=== PATIENT | male | born 1955 | race Caucasian/White ===

== ENCOUNTER 2019-06-27 20:30 | Inpatient (IN) | payer BC, SELFPAY ==
[2019-06-28] VITALS (26 sets, daily range): BP systolic 121–170; BP diastolic 67–87; PULSE 80–106; RESP 14–26; TEMP 37.4–38.9; O2SAT 90–100; BMI 44.9
--- NOTE | 2019-06-28 02:28 | PC.ADMIT ---
NO [id number] [facility] Admission Note: The patient,Satish Jones,64 y/o, was given written information regarding hospital policies, unit procedures and contact persons. Patient's smoking status: . Vital Signs - 8 hr 06/28/19 00:01 06/28/19 02:00 Temperature 99.3 F Pulse Rate [Bilateral Radial] 105 H 93 Respiratory Rate 18 18 Blood Pressure [Right Arm] 144/82 149/72 Pulse Oximetry 92 95 PT RCVD FROM ED VIA STRETCHER. PT A&OX3 . VSS PER CM. PT ARGUMENTIVE AND REFUSING TO STAY IN BED. PT NOTED TO HAVE PURULENT FOUL SMELLING DRAINAGE C OLD DRSGS ATTACHED TO WOUNDS. PT FAMILY REPORTED PT HAS HAD SAME DRSGS ON FOR SEVERAL MONTHS. PT HAS OPEN LESIONS TO BLE , SCROTUM, BUTTOCKS, AND GROIN AREA . PT REPORTS HE LIVES ALONE AND NO ONE HELPS HIM TAKE CARE OF HIMSELF. ABGS DRAWN AT THIS TIME. PT PLACED ON BIPAP PER RT. 0000 BATH CARE DONE AT THIS TIME. WOUNDS CLEANED C DAKINS PER MD ORDER, FLAGYL CREAM APPLIED . PT POSITIONED FOR COMFORT . LINENS CHANGED AT THIS TIME.
[2019-06-28] MEDS: sodium hypochlorite 0.25% Btl 473 mL 1 APPLIC TOPICAL ×2 (02:42→15:30)
[2019-06-28] MEDS: sodium chlor 0.9% + KCl 20 mEq 20 MEQ/1,000 ML BAG 30 MEQ IV (02:44)
[2019-06-28] MEDS: piperacillin-tazobactam 4.5 GM in sodium chloride 0.9% (plus) 50 ML IV ×2 (02:45→17:13)
[2019-06-28 03:40] LABS: ABG PCO2 58.2 mmHg (35-45); ABG PH Result 7.28 (7.35-7.45)
[2019-06-28 03:41] LABS: BIPAP 20/10; Base Excess ABG -0.6 mmol/L (-2.0-2.0); Blood Gas Allen Test POS; Blood Gas Operator Identificat CAK; HCO3 ABG 27.4 mmol/L (22-26); Oxygen Device BIPAP; PO2 ABG 94.5 mmHg (80.0-100.0)
[2019-06-28 03:42] LABS: Blood Gas Drawn By CAK; Blood Gas Sample Site LB; Blood Gas Sample Type ARTERIAL
--- NOTE | 2019-06-28 04:10 | PC.NURSE ---
ABGS REVIEWED C DR. GUERRERO PER ARIADNE RT. ORDER TO INTUBATE . DR. ARMENTA AT BEDSIDE AT 0415 .INDUCTION C 200 SUCCINCHOLYNE AND 20 ETOMIDATE . PT INTUBATED X 1 ATTEMPT SIZE 8 SECURED 25 AT LIP. OG PLACED AND VERIFIED PER AUSCULTATION AND XRAY. VSS PER CM. DIPRIVAN GTT STARTED AT 10 MCG/KG/MIN AT THIS TIME. SAMANTHA RIVERA.
--- NOTE | 2019-06-28 04:17 | XR_ITS ---
WS: [id number] CHEST XRAY TECHNIQUE: Portable chest. CLINICAL INFORMATION: post intubation COMPARISON: June 17, 2019 FINDINGS: Endotracheal tube with tip 6 cm above the nita. Enteric tube with tip below the diaphragm. Heart: Cardiomegaly. Mild pulmonary vascular congestion. Lungs: Bibasilar atelectasis. No focal pneumonia. Bones: Normal visualized bony structures. XR/XR chest 1V portable [id number] IMPRESSION: 1. Endotracheal tube with tip 6 cm above the nita. Enteric tube with tip bel ow the diaphragm. 2. Cardiomegaly with mild pulmonary vascular congestion. 3. Bibasilar atelectasis.
[2019-06-28] MEDS: propofol 1,000 MG/100 ML INJ 33.1 MG IV (05:04)
[2019-06-28] MEDS: succinylcholine 20 mg/mL SDV 10mL 200 MG (05:06)
[2019-06-28 05:15] LABS: Add RBC Morph No
[2019-06-28 05:20] LABS: Basophils % 0.2 %; Eosinophils % 0.1 %; Hematocrit 43.3 % (42.0-52.0); Hemoglobin 14.3 g/dL (11.7-16.6); Lymphocytes # 0.8 10^3/uL (0.8-4.8); Lymphocytes % 6.1 %; Mean Corpuscular Hemoglobin 30.6 pg (28.0-34.0); Mean Corpuscular Volume 92.7 fL (80-94); Mean Platelet Volume 8.1 fL (7.4-10.4); Monocytes # 1.4 10^3/uL (0.2-0.9); Monocytes % 10.5 %; Neutrophils # 10.6 10^3/uL (1.8-7.7); Neutrophils % 82.7 %; Nucleated Red Blood Cells % 0 %; Platelet Count 265 10^3/cmm (130-400); Red Blood Count 4.67 10^6/uL (4.1-5.3); Red Cell Distribution Width 14.1 % (12.1-15.1); White Blood Count 12.9 10^3/uL (4.0-10.0)
[2019-06-28 05:48] LABS: ABG PCO2 55.3 mmHg (35-45); ABG PH Result 7.27 (7.35-7.45); Arterial Blood Gas Hematocrit 42.7 % (42-52); Base Excess ABG -2.5 mmol/L (-2.0-2.0); Blood Gas Allen Test Pos; Blood Gas Sample Site Brachial, left; Blood Gas Sample Type Arterial; Blood Gas Tidal Volume 0.55; HCO3 ABG 25.3 mmol/L (22-26); PO2 ABG 89.7 mmHg (80.0-100.0)
[2019-06-28 05:50] LABS: Blood Gas Drawn By CAK; Oxygen Device VENT
[2019-06-28] MEDS: propofol 1,000 MG/100 ML INJ 49.6 MG IV ×3 (05:51→10:02)
[2019-06-28 05:55] LABS: Alanine Aminotransferase 17 U/L (0-41); Albumin Level 4.2 g/dL (3.5-5.2); Alkaline Phosphatase 114 IU/L (40-130); Anion Gap 21.4 (5-19); Aspartate Amino Transferase 30 U/L (0-40); Blood Urea Nitrogen 10 mg/dL (8-23); Calcium 8.7 mg/Dl (8.8-10.2); Carbon Dioxide 21 mmol/L (22-29); Chloride 95 mmol/L (98-107); Globulin 3.1 g/dL (1.3-4.6); Glomerular Filtration Rate 136.5 mL/min (90-130); Glucose 144 mg/dL (74-106); Potassium 3.4 mmol/L (3.5-5.1); Sodium 134 mmol/L (136-145); Total Bilirubin 0.9 mg/dL (0.15-1.2); Total Protein 7.3 g/dL (6.6-8.7)
[2019-06-28 06:45] LABS: Alanine Aminotransferase 16 U/L (0-41); Albumin Level 3.8 g/dL (3.5-5.2); Alkaline Phosphatase 102 IU/L (40-130); Anion Gap 20.5 (5-19); Aspartate Amino Transferase 27 U/L (0-40); Blood Urea Nitrogen 11 mg/dL (8-23); Calcium 8.4 mg/Dl (8.8-10.2); Carbon Dioxide 22 mmol/L (22-29); Chloride 97 mmol/L (98-107); Globulin 2.8 g/dL (1.3-4.6); Glomerular Filtration Rate 114.3 mL/min (90-130); Glucose 140 mg/dL (74-106); Potassium 3.5 mmol/L (3.5-5.1); Sodium 136 mmol/L (136-145); Total Bilirubin 0.9 mg/dL (0.15-1.2); Total Protein 6.6 g/dL (6.6-8.7)
[2019-06-28 07:11] LABS: Amphetamines Screen Urine Negative (Negative); Barbiturates Screen Urine Negative (Negative); Benzodiazepines Screen Urine Negative (Negative); Cocaine Screen Urine Negative (Negative); Opiate Screen Urine Negative (Negative); PCP Screen Urine Negative (Negative); THC Screen Urine Negative (Negative)
[2019-06-28 07:49] LABS: ABG PCO2 50.3 mmHg (35-45); ABG PH Result 7.33 (7.35-7.45); Base Excess ABG -0.4 mmol/L (-2.0-2.0); Blood Gas Allen Test Pos; Blood Gas Sample Site Brachial, left; Blood Gas Sample Type Arterial; Blood Gas Tidal Volume 0.6; HCO3 ABG 26.2 mmol/L (22-26)
[2019-06-28] MEDS: FUROsemide 10 mg/mL SDV 4mL 40 MG IVP ×2 (10:04→21:40)
[2019-06-28] MEDS: folic acid 1 mg Tablet PO (10:08)
[2019-06-28] MEDS: multivitamin therapeutic Tablet 1 TAB PO (10:08)
[2019-06-28] MEDS: thiamine 100 mg Tablet PO (10:09)
[2019-06-28 11:48] LABS: Magnesium 2.2 mg/dL (1.7-2.3)
[2019-06-28] MEDS: propofol 1,000 MG/100 ML INJ 52.2 MG IV ×6 (12:27→23:50)
[2019-06-28 12:48] LABS: Oxygen Device VENT
[2019-06-28 12:49] LABS: Blood Gas Drawn By CK
--- NOTE | 2019-06-28 12:57 | PC.PT ---
Hold PT eval today.
--- NOTE | 2019-06-28 14:13 | PC.CHAP ---
Pastoral Care Encounter/Spiritual Assessment Type of Contact [x] Declined mitochondrial disorders counselor visit [] Patient/Family/Request visit [] Outpatient visit [] Follow-up visit [] Physician referral [] Code/Alert [] Routine visit [] Staff referral [] Actively dying [] Patient sleeping [] Family support [] [] Out of room [] Palliative care [] [] Receiving care in room [] Pre-surgical visit [] Trauma [] Long length of stay [] ICU visit [] Other: Relational/Emotional Strength [] Patient feels connected with others/family/visitors/staff [] Distress [] Loneliness/isolation [] Abandonment Spirituality of Patient [] Person of Maryan [] Attends Sikhism of their Maryan [] Believes in Prayer [] Reads Bible or Congregation materials [] There are Spiritual issues to be addressed Glass Mould Cleaner Interventions [] Prayer [] Active listening [] Non-anxious presence [] Spiritual/emotional support [] Crisis/trauma care [] Spiritual counseling [] Bereavement support [] Provided bereavement packet [] Provided Bible/devotional materials [] Provided toy/stuffed animal, coloring book to patient or family member [] Completed spiritual assessment [] Provided Communion [] Anointing/[place] [] Salvation [] Other: Impact on Illness or Injury [] Angry [] Fearful [] Anxious [] Often cries [] Exhaustion [] Unable to work [] Unable to attend sabianist [] Unable to walk/stand [] Unable to read [] Unable to drive [] Unable to eat/drink [] Unable to sleep [] Unable to be with family [] Other: Summary Declinded Time spent with patient 2 mins
[2019-06-28] MEDS: ipratropium-albuterol 3 mL Neb INHALATION ×3 (17:05→23:54)
[2019-06-28 17:15] LABS: Bilirubin Urine Neg (Negative); Blood Urine 2+ (Negative); Glucose Urine UA Norm (Normal); Ketones Urine 1+ (Negative); Leukocyte Esterase Urine 2+ (Negative); Nitrate Urine Negative (Negative); Protein Urine Trace (Negative); Urine Appearance SL Hazy (CLEAR); Urine Color Amber (Yellow); Urobilinogen Urine 4 mg/dL (Negative)
[2019-06-28 17:33] LABS: Add Urine Culture? Yes; Bacteria Urine 2+; Mucus Urine TRACE; RBC Urine 25-40 /hpf (0-2); WBC Urine 40-55 /hpf (0-5)
--- NOTE | 2019-06-28 17:42 | CTR_ITS ---
PROCEDURE INFORMATION: Exam: CT Abdomen And Pelvis Without Contrast Exam date and time: 06/28/2019 7:14 PM Age: 64 years old Clinical indication: Patient HX: Hematuria, PT intubated, HX prostate CA; Additional info: Unknown TECHNIQUE: Imaging protocol: Computed tomography of the abdomen and pelvis without contrast. Total DLP: 2253.21 mGy-cm Radiation optimization: All CT scans at this facility use at least one of these dose optimization techniques: automated exposure control; mA and/or kV adjustment per patient size (includes targeted exams where dose is matched to clinical indication); or iterative reconstruction. COMPARISON: No relevant prior studies available. FINDINGS: Limitations: Study is limited by the absence of contrast. Artifact related to patient's arm position limits evaluation. Limited by patient's body habitus. Tubes, catheters and devices: Oral gastric tube tip and sidehole are within the stomach. A balloon bladder catheter is present. Lungs: Bilateral lower lobe consolidation. Heart: Mild cardiac enlargement. Liver: Enlarged low attenuating liver, evidence of hepatic steatosis. Gallbladder and bile ducts: Gallbladder distention. Pancreas: Normal. No ductal dilation. Spleen: Normal. No splenomegaly. Adrenals: Normal. No mass. Kidneys and ureters: Indeterminate density 3.6 cm right renal hypodense lesion, could be a complicated or complex cyst, recommend followup or comparison to priors. Stomach and bowel: Unremarkable. No obstruction. No mucosal thickening. Appendix: No evidence of appendicitis. Intraperitoneal space: Unremarkable. No free air. No significant fluid collection. Vasculature: Unremarkable. No abdominal aortic aneurysm. Lymph nodes: Nonspecific inguinal, and pelvic sidewall adenopathy. Sidewall lymph nodes measure up to 2 cm short axis. Bladder: Unremarkable as visualized. Reproductive: Unremarkable as visualized. Bones/joints: Moderate lumbar spondylosis. Soft tissues: Excessive intra-abdominal fat. CT/CT kidney stone [id number] IMPRESSION: 1. Bilateral lower lobe consolidation. 2. Indeterminate density 3.6 cm right renal hypodense lesion, could be a complicated or complex cyst, recommend followup or comparison to priors. 3. Nonspecific inguinal, and pelvic sidewall adenopathy. Sidewall lymph nodes measure up to 2 cm short axis. 4. Gallbladder distention. Radiation Dose CTDIVOL = (mGy): DLP = 2253.21 (mGy-cm)
--- NOTE | 2019-06-28 17:43 | P.PN_ITS ---
Subjective Subjective: Interval history: Satish is sedated and on the ventilator. History and physical reviewed. Medications: Reviewed: Yes Vitals/I&O/Wt Last Vital Signs Temp 101.1 F H 06/28/19 16:00 Pulse 85 06/28/19 17:13 Resp 16 06/28/19 17:14 BP 136/73 06/28/19 16:00 Pulse Ox 100 06/28/19 17:08 06/28/19 06/28/19 06/28/19 06:59 14:59 22:59 Intake Total 75.928 / 75.928 900 / 900 59.16 / 959.16 Output Total 900 / 900 Balance -824.072 / -824.072 900 / 900 59.16 / 959.16 Weight last 48 hrs Weight 137.892 kg Physical Exam Narrative: EXAM NARRATIVE: General exam is sedated, on ventilator Cardiovascular regular and rhythm without murmur Lungs few bilateral expiratory wheezes Abdomen soft obese his Jeffery Extremities 3+ edema, erythema, venous stasis changes Urinary Catheter Management^: Jeffery: Cath Placed During This Visit: no Data Labs: Other Labs: All Labs last 24 hrs except CBC/BMP 06/27/19 06/27/19 06/27/19 18:32 19:32 19:32 RBC 4.67 MCV 86.9 MCH 29.8 MCHC 34.2 RDW 14.0 MPV 7.9 Neut % (Auto) 61.4 Lymph % (Auto) 20.1 Garrett % (Auto) 14.1 Eos % (Auto) 3.2 Baso % (Auto) 0.9 Neut # (Auto) 4.8 Lymph # (Auto) 1.6 Garrett # (Auto) 1.1 H Eos # (Auto) 0.3 Baso # (Auto) 0.1 Nucleated RBC % (a uto) 0 Nucleated RBCs # 0.0 Specimen Type Sample Site ABG pH ABG pCO2 ABG pO2 ABG HCO3 ABG Base Excess Toro Test Hematocrit Respiration Rate O2 Delivery Device FiO2 Tidal Volume PEEP Mode BiPAP Specimen Drawn By Sewer Repairer ID GFR Calculation 136.5 H Random Glucose 140 H Lactic Acid Calcium 8.9 Phosphorus 3.6 Magnesium 2.1 Total Bilirubin 0.6 AST 33 ALT 18 Alkaline Phosphata se 107 NT-Pro-B Natriuret Pep Total Protein 8.4 Albumin 4.2 Globulin 4.2 Urine Color Urine Appearance Urine pH Ur Specific Gravit y Urine Protein Urine Glucose (UA) Urine Ketones Urine Occult Blood Urine Nitrate Urine Bilirubin Urine Urobilinogen Ur Leukocyte Dayami ase Urine RBC Urine WBC Ur Squamous Epith Cells Urine Bacteria Urine Mucus Urine Opiates Scre en Ur Barbiturates Sc reen Ur Phencyclidine S crn Ur Amphetamines Sc reen U Benzodiazepines Scrn Urine Cocaine Scre en U Marijuana (THC) Screen Ethyl Alcohol 298 H 06/27/19 06/27/19 06/28/19 19:32 19:32 03:24 RBC MCV MCH MCHC RDW MPV Neut % (Auto) Lymph % (Auto) Garrett % (Auto) Eos % (Auto) Baso % (Auto) Neut # (Auto) Lymph # (Auto) Garrett # (Auto) Eos # (Auto) Baso # (Auto) Nucleated RBC % (a uto) Nucleated RBCs # Specimen Type Arterial Sample Site Lb ABG pH 7.28 L ABG pCO2 58.2 H ABG pO2 94.5 ABG HCO3 27.4 H ABG Base Excess -0.6 Toro Test Pos Hematocrit 44.0 Respiration Rate O2 Delivery Device Bipap FiO2 60.0 Tidal Volume PEEP Mode BiPAP 20/10 Specimen Drawn By Cak Sewer Repairer ID Cak GFR Calculation Random Glucose Lactic Acid 3.8 H Calcium Phosphorus Magnesium Total Bilirubin AST ALT Alkaline Phosphata se NT-Pro-B Natriuret Pep 121 Total Protein Albumin Globulin Urine Color Urine Appearance Urine pH Ur Specific Gravit y Urine Protein Urine Glucose (UA) Urine Ketones Urine Occult Blood Urine Nitrate Urine Bilirubin Urine Urobilinogen Ur Leukocyte Dayami ase Urine RBC Urine WBC Ur Squamous Epith Cells Urine Bacteria Urine Mucus Urine Opiates Scre en Ur Barbiturates Sc reen Ur Phencyclidine S crn Ur Amphetamines Sc reen U Benzodiazepines Scrn Urine Cocaine Scre en U Marijuana (THC) Screen Ethyl Alcohol 06/28/19 06/28/19 06/28/19 04:33 04:33 04:35 RBC 4.67 MCV 92.7 MCH 30.6 MCHC 33.0 RDW 14.1 MPV 8.1 Neut % (Auto) 82.7 Lymph % (Auto) 6.1 Garrett % (Auto) 10.5 Eos % (Auto) 0.1 Baso % (Auto) 0.2 Neut # (Auto) 10.6 H Lymph # (Auto) 0.8 Garrett # (Auto) 1.4 H Eos # (Auto) 0.0 Baso # (Auto) 0.0 Nucleated RBC % (a uto) 0 Nucleated RBCs # 0.0 Specimen Type Sample Site ABG pH ABG pCO2 ABG pO2 ABG HCO3 ABG Base Excess Toro Test Hematocrit Respiration Rate O2 Delivery Device FiO2 Tidal Volume PEEP Mode BiPAP Specimen Drawn By Sewer Repairer ID GFR Calculation 136.5 H Random Glucose Lactic Acid Calcium 8.7 L Phosphorus Magnesium 2.2 Total Bilirubin 0.9 AST 30 ALT 17 Alkaline Phosphata se 114 NT-Pro-B Natriuret Pep Total Protein 7.3 Albumin 4.2 Globulin 3.1 Urine Color Urine Appearance Urine pH Ur Specific Gravit y Urine Protein Urine Glucose (UA) Urine Ketones Urine Occult Blood Urine Nitrate Urine Bilirubin Urine Urobilinogen Ur Leukocyte Dayami ase Urine RBC Urine WBC Ur Squamous Epith Cells Urine Bacteria Urine Mucus Urine Opiates Scre en Negative Ur Barbiturates Sc reen Negative Ur Phencyclidine S crn Negative Ur Amphetamines Sc reen Negative U Benzodiazepines Scrn Negative Urine Cocaine Scre en Negative U Marijuana (THC) Screen Negative Ethyl Alcohol 06/28/19 06/28/19 06/28/19 05:35 06:15 07:37 RBC MCV MCH MCHC RDW MPV Neut % (Auto) Lymph % (Auto) Garrett % (Auto) Eos % (Auto) Baso % (Auto) Neut # (Auto) Lymph # (Auto) Garrett # (Auto) Eos # (Auto) Baso # (Auto) Nucleated RBC % (a uto) Nucleated RBCs # Specimen Type Arterial Arterial Sample Site Brachial, left Brachial, left ABG pH 7.27 L 7.33 L ABG pCO2 55.3 H 50.3 H ABG pO2 89.7 77.0 L ABG HCO3 25.3 26.2 H ABG Base Excess -2.5 L -0.4 Toro Test Pos Pos Hematocrit 42.7 41.0 L Respiration Rate 14.0 14.0 O2 Delivery Device Vent Vent FiO2 80.0 80.0 Tidal Volume 0.55 0.6 PEEP 8.0 8.0 Mode BiPAP Specimen Drawn By Cak Ck Sewer Repairer ID cak cak GFR Calculation 114.3 Random Glucose Lactic Acid Calcium 8.4 L Phosphorus Magnesium Total Bilirubin 0.9 AST 27 ALT 16 Alkaline Phosphata se 102 NT-Pro-B Natriuret Pep Total Protein 6.6 Albumin 3.8 Globulin 2.8 Urine Color Urine Appearance Urine pH Ur Specific Gravit y Urine Protein Urine Glucose (UA) Urine Ketones Urine Occult Blood Urine Nitrate Urine Bilirubin Urine Urobilinogen Ur Leukocyte Dayami ase Urine RBC Urine WBC Ur Squamous Epith Cells Urine Bacteria Urine Mucus Urine Opiates Scre en Ur Barbiturates Sc reen Ur Phencyclidine S crn Ur Amphetamines Sc reen U Benzodiazepines Scrn Urine Cocaine Scre en U Marijuana (THC) Screen Ethyl Alcohol 06/28/19 16:45 RBC MCV MCH MCHC RDW MPV Neut % (Auto) Lymph % (Auto) Garrett % (Auto) Eos % (Auto) Baso % (Auto) Neut # (Auto) Lymph # (Auto) Garrett # (Auto) Eos # (Auto) Baso # (Auto) Nucleated RBC % (a uto) Nucleated RBCs # Specimen Type Sample Site ABG pH ABG pCO2 ABG pO2 ABG HCO3 ABG Base Excess Toro Test Hematocrit Respiration Rate O2 Delivery Device FiO2 Tidal Volume PEEP Mode BiPAP Specimen Drawn By Sewer Repairer ID GFR Calculation Random Glucose Lactic Acid Calcium Phosphorus Magnesium Total Bilirubin AST ALT Alkaline Phosphata se NT-Pro-B Natriuret Pep Total Protein Albumin Globulin Urine Color Audra Urine Appearance Sl hazy A Urine pH 5.0 Ur Specific Gravit y 1.020 Urine Protein Trace A Urine Glucose (UA) Norm Urine Ketones 1+ H Urine Occult Blood 2+ H Urine Nitrate Negative Urine Bilirubin Neg Urine Urobilinogen 4 H Ur Leukocyte Dayami ase 2+ H Urine RBC 25-40 H Urine WBC 40-55 H Ur Squamous Epith Cells 5-10 H Urine Bacteria 2+ H Urine Mucus Trace Urine Opiates Scre en Ur Barbiturates Sc reen Ur Phencyclidine S crn Ur Amphetamines Sc reen U Benzodiazepines Scrn Urine Cocaine Scre en U Marijuana (THC) Screen Ethyl Alcohol Micro: Micro: Microbiology 06/28/19 04:50 Gram Stain - Final Sputum - Endotrac heal Tube Aspirate A&P Assessment and plan (1) Respiratory failure: Multifactorial. May have fluid overload. May be secondary to sepsis. Echocardiogram will be useful. However quality of this may be poor. Status: Acute Code(s): J96.90 - Respiratory failure, unspecified, unspecified whether with hypoxia or hypercapnia (2) Cellulitis: Placed on vancomycin, Zosyn Status: Acute Code(s): L03.90 - Cellulitis, unspecified (3) Alcohol abuse: [facility] protocol Status: Acute Code(s): F10.10 - Alcohol abuse, uncomplicated (4) Hypokalemia: Supplemented Status: Acute Code(s): E87.6 - Hypokalemia (5) Hypertension: Stable Status: Acute Code(s): I10 - Essential (primary) hypertension (6) Obesity, morbid: Status: Acute Code(s): E66.01 - Morbid (severe) obesity due to excess calories (7) Sepsis: IV antibiotics initiated. Culture growing gram-negative rods this afternoon. Status: Acute Code(s): A41.9 - Sepsis, unspecified organism Attestations Medical Necessity Statement*: Needs continued hospitalization for IV antibiotics secondary to sepsis Coding Level of Care Code Acute Certified Ophthalmic Technologist for [facility] Fwd Diagnoses Respiratory failure J96.90 Cellulitis L03.90 Alcohol abuse F10.10 Hypokalemia E87.6 Hypertension I10 Obesity, morbid E66.01 Sepsis A41.9
[2019-06-28] MEDS: acetaminophen 325 mg Tablet 650 MG PO (18:09)
--- NOTE | 2019-06-28 19:29 | PC.NURSE ---
bedside report rcvd at his time. vss per cm. pt intubated size 8 et tube 27@ lip cmv 14/600/60/8.[address] and secured. piv x 3 . foleu to csd c purulent yellow urine. stat lock in place. oral and et care done . pt turned to left . wrist restraints in place per order. assessment per flowsheet. katie ellsworth.
[2019-06-29] VITALS (27 sets, daily range): BP systolic 110–146; BP diastolic 59–80; PULSE 79–92; RESP 17–22; TEMP 38.1–39.3; O2SAT 87–97; BMI 44.7
[2019-06-29] MEDS: piperacillin-tazobactam 4.5 GM in sodium chloride 0.9% (plus) 50 ML IV ×2 (01:21→08:57)
[2019-06-29] MEDS: propofol 1,000 MG/100 ML INJ 52.2 MG IV ×11 (01:40→22:56)
[2019-06-29] MEDS: acetaminophen 325 mg Tablet 650 MG PO ×2 (02:52→13:48)
--- NOTE | 2019-06-29 02:57 | PC.NURSE ---
temp 102.4 ax. tylenol given per aug. katie ellsworth.
--- NOTE | 2019-06-29 03:12 | PC.NURSE ---
attempted to contact steffanie wilson rn.
[2019-06-29 03:16] LABS: Alanine Aminotransferase 15 U/L (0-41); Albumin Level 3.2 g/dL (3.5-5.2); Alkaline Phosphatase 84 IU/L (40-130); Anion Gap 14.2 (5-19); Blood Urea Nitrogen 15 mg/dL (8-23); Calcium 8.8 mg/Dl (8.8-10.2); Carbon Dioxide 26 mmol/L (22-29); Chloride 96 mmol/L (98-107); Globulin 2.9 g/dL (1.3-4.6); Glomerular Filtration Rate 114.3 mL/min (90-130); Glucose 139 mg/dL (74-106); Potassium 3.2 mmol/L (3.5-5.1); Sodium 133 mmol/L (136-145); Total Bilirubin 0.6 mg/dL (0.15-1.2); Total Protein 6.1 g/dL (6.6-8.7)
[2019-06-29] MEDS: ipratropium-albuterol 3 mL Neb INHALATION ×6 (03:27→23:07)
[2019-06-29 03:56] LABS: Aspartate Amino Transferase 31 U/L (0-40)
--- NOTE | 2019-06-29 04:00 | XR_ITS ---
WS: [id number] CHEST XRAY TECHNIQUE: Portable chest. CLINICAL INFORMATION: resp failure COMPARISON: June 28, 2019 FINDINGS: Endotracheal tube with tip 1.7 cm above the nita. Enteric tube with tip in the proximal stomach. Heart: Cardiomegaly. Lungs: Chronic emphysematous changes. Subsegmental atelectasis in the lung bases. Bones: Hypertrophic changes thoracic spine. XR/XR chest 1V portable [id number] IMPRESSION: 1. Endotracheal tube with tip above the nita measuring 1.7 CCM. Enteric tube with tip in the stomach. 2. Cardiomegaly shallow inspiration. Subsegmental atelectasis in the lung base s. This is similar to previous.
--- NOTE | 2019-06-29 04:52 | PC.NURSE ---
[address] at this time. rt at bedside. katie ellsworth.
[2019-06-29 05:14] LABS: ABG PCO2 41.2 mmHg (35-45); ABG PH Result 7.48 (7.35-7.45); Base Excess ABG 6.4 mmol/L (-2.0-2.0); Blood Gas Allen Test Pos; Blood Gas Sample Site Radial, right; Blood Gas Sample Type Arterial; Blood Gas Tidal Volume 0.6; HCO3 ABG 30.6 mmol/L (22-26)
[2019-06-29] MEDS: sodium hypochlorite 0.25% Btl 473 mL 1 APPLIC TOPICAL ×3 (06:28→21:41)
--- NOTE | 2019-06-29 06:30 | PC.NURSE ---
bath care c linen change. wounds cleaned c dakins per order. pt turned and positioned for comfort c pillows. vss per cm. temp 101.2 at this time. 0630 echo being done at this time katie ellsworth.
--- NOTE | 2019-06-29 06:49 | PC.NURSE ---
phone call from pt brother update provided. katie ellsworth.
--- NOTE | 2019-06-29 07:00 | USCV_ITS ---
Satish Jones Age: 64 Gender: M : 1955 Exam Date: 06/29/2019 06:24 Ordering Phys: Fransico Miller MD Technologist: Yobani Knox Exam Location: [facility] Indication: FLUID OVERLOAD BACTERIMA BP: 124 / 66 HR: 79 Rhythm: Sinus Technical Quality: Poor because of body habitus MEASUREMENTS (Male / Female) Normal Values 2D ECHO LV Diastolic Diameter PLAX 3.8 cm 4.2 - 5.9 / 3.9 - 5.3 cm LV Systolic Diameter PLAX 2.9 cm IVS Diastolic Thickness 1.2 cm 0.6 - 1.0 / 0.6 - 0.9 cm IVS Systolic Thickness 1.0 cm LVPW Diastolic Thickness 1.0 cm 0.6 - 1.0 / 0.6 - 0.9 cm LVPW Systolic Thickness 1.2 cm LVOT Diameter 2.0 cm LV Ejection Fraction 2D Teich 48.5 % LV Ejection Fraction MOD 2C 67.8 % LV Ejection Fraction 2C AL 69.5 % LA Diameter 4.6 cm LA Width 3.7 cm LA Height 4.8 cm RA Width 3.1 cm RA Height 5.3 cm Aorta at Sinotubular Diameter 2.6 cm M-MODE LV Diastolic Diameter MM 5.8 cm 4.2 - 5.9 / 3.9 - 5.3 cm LV Systolic Diameter MM 3.5 cm LV Ejection Fraction MM Teich 69.2 % IVS Diastolic Thickness MM 0.8 cm 0.6 - 1.0 / 0.6 - 0.9 cm IVS Systolic Thickness MM 1.7 cm LVPW Diastolic Thickness MM 1.3 cm 0.6 - 1.0 / 0.6 - 0.9 cm LVPW Systolic Thickness MM 1.6 cm RV Diastolic Diameter MM 2.1 cm Aortic Annulus Diameter 4.4 cm LA Ao Ratio MM 1.0 MV E Point Septal Separation 1.3 cm DOPPLER TR Peak Velocity 95.0 cm/s TR Peak Gradient 3.6 mmHg TV Peak E Velocity 72.0 cm/s Right Atrial Pressure 3.0 mmHg Pulmonary Artery Systolic Pressu 6.6 mmHg FINDINGS Left Ventricle Normal left ventricular size and systolic function, EF 64 %. No regional wall motion abnormalities. Right Ventricle Possibly of normal size and ejection fraction Right Atrium Right atrium not well visualized. Left Atrium Possibly of normal size Mitral Valve No gross abnormalities noted Aortic Valve No gross abnormalities noted Tricuspid Valve Could not be visualized well Pulmonic Valve Pulmonic valve not well visualized. Pericardium No pericardial effusion. Aorta Normal aortic annulus size. CONCLUSIONS Normal left ventricular size and systolic function, EF 64 %. No regional wall motion abnormalities. No significant stenotic lesions Possibly normal chamber sizes. No pericardial effusion. Technically difficult study because of the poor ultrasonic window. Dr Yeimy Mike MD FACC (Electronically Signed) Final Date: 29 June 2019 19:37 S
[2019-06-29] MEDS: multivitamin therapeutic Tablet 1 TAB PO (08:39)
[2019-06-29] MEDS: thiamine 100 mg Tablet PO (08:39)
[2019-06-29] MEDS: folic acid 1 mg Tablet PO (08:39)
[2019-06-29] MEDS: FUROsemide 10 mg/mL SDV 4mL 40 MG IVP (08:59)
[2019-06-29 09:08] LABS: Basophils % 0.3 %; Eosinophils % 0.3 %; Hemoglobin 12.3 g/dL (11.7-16.6); Lymphocytes # 0.8 10^3/uL (0.8-4.8); Lymphocytes % 11.3 %; Mean Corpuscular HGB Conc 32.4 g/dL (30.0-36.0); Mean Corpuscular Hemoglobin 30.8 pg (28.0-34.0); Mean Platelet Volume 8.2 fL (7.4-10.4); Monocytes # 0.8 10^3/uL (0.2-0.9); Monocytes % 11.3 %; Neutrophils # 5.4 10^3/uL (1.8-7.7); Neutrophils % 76.2 %; Nucleated Red Blood Cells % 0 %; Platelet Count 168 10^3/cmm (130-400); Red Cell Distribution Width 14.6 % (12.1-15.1); White Blood Count 7.1 10^3/uL (4.0-10.0)
[2019-06-29 09:14] LABS: Add RBC Morph No
[2019-06-29] MEDS: sodium chlor 0.9% + KCl 20 mEq 20 MEQ/1,000 ML BAG 30 MEQ IV (11:57)
[2019-06-29] MEDS: potassium chloride premix 40 MEQ/100 ML PREMIX 25 MEQ IV ×2 (13:39→15:12)
--- NOTE | 2019-06-29 13:50 | PM.PN ---
Subjective Subjective: Interval history: Satish is sedated and on the ventilator. Nurse relates no events last night. Medications: Reviewed: Yes Vitals/I&O/Wt Last Vital Signs Temp 101.6 F H 06/29/19 10:00 Pulse 90 06/29/19 12:00 Resp 22 H 06/29/19 12:17 BP 143/76 06/29/19 12:00 Pulse Ox 91 06/29/19 10:43 06/28/19 06/29/19 06/29/19 22:59 06:59 14:59 Intake Total 833.52 / 1733.52 1273.76 / 3007.28 375.5 / 375.5 Output Total 900 / 900 2200 / 3100 Balance -66.48 / 833.52 -926.24 / -92.72 375.5 / 375.5 Weight last 48 hrs Weight 137.438 kg Weight 137.892 kg Physical Exam Narrative: EXAM NARRATIVE: General exam sedated, on ventilator. Settings reviewed Cardiovascular regular rate and rhythm. No murmur Lungs clear no wheezing or crackles Abdomen is soft obese with positive bowel sounds Extremities venous stasis ulceration and erythema largely unchanged. Odor is somewhat better. Distal cap refill intact. Urinary Catheter Management^: Jeffery: Cath Placed During This Visit: no Data Micro: Micro: Microbiology 06/28/19 04:50 Gram Stain - Final Sputum - Endotrac heal Tube Aspirate Sputum Culture - P reliminary A&P Assessment and plan (1) Respiratory failure: Multifactorial. Likely secondary to fluid overload as well as sepsis. Echocardiogram will be useful. However quality of this may be poor. This has been completed but is pending Status: Acute Code(s): J96.90 - Respiratory failure, unspecified, unspecified whether with hypoxia or hypercapnia (2) Cellulitis: Placed on vancomycin, Zosyn. Secondary to persistent fever Zosyn has been changed to Primaxin in case ESBL is present Status: Acute Code(s): L03.90 - Cellulitis, unspecified (3) Alcohol abuse: [facility] protocol Status: Acute Code(s): F10.10 - Alcohol abuse, uncomplicated (4) Hypokalemia: Still present. Will supplement again. Status: Acute Code(s): E87.6 - Hypokalemia (5) Hypertension: Stable Status: Acute Code(s): I10 - Essential (primary) hypertension (6) Obesity, morbid: Status: Acute Code(s): E66.01 - Morbid (severe) obesity due to excess calories (7) Sepsis: IV antibiotics initiated. Culture growing gram-negative rods. 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
--- NOTE | 2019-06-29 14:19 | PC.PT ---
Hold PT today;Pt remains intubated and sedated,per nursing.
[2019-06-29] MEDS: FUROsemide 10 mg/mL SDV 10mL 60 MG IVP (15:20)
[2019-06-29] MEDS: LORazepam 2 mg/mL INJ 1 mL IV (21:32)
[2019-06-29] MEDS: enoxaparin 40 mg/0.4 mL Syringe SUBCUT (21:37)
[2019-06-30] VITALS (29 sets, daily range): BP systolic 124–150; BP diastolic 67–81; PULSE 79–101; RESP 18–27; TEMP 38.1–38.3; O2SAT 89–94
[2019-06-30] MEDS: propofol 1,000 MG/100 ML INJ 52.2 MG IV ×6 (00:44→11:09)
[2019-06-30] MEDS: FUROsemide 10 mg/mL SDV 10mL 60 MG IVP ×2 (02:44→15:03)
[2019-06-30] MEDS: ipratropium-albuterol 3 mL Neb INHALATION ×6 (03:15→23:18)
[2019-06-30 04:38] LABS: ABG PCO2 37.3 mmHg (35-45); ABG PH Result 7.54 (7.35-7.45); Arterial Blood Gas Hematocrit 40.2 % (42-52); Base Excess ABG 8.7 mmol/L (-2.0-2.0); Blood Gas Allen Test Pos; Blood Gas Sample Site Radial, right; Blood Gas Sample Type Arterial; Blood Gas Tidal Volume 0.6; HCO3 ABG 31.8 mmol/L (22-26); PO2 ABG 60.5 mmHg (80.0-100.0)
[2019-06-30 05:37] LABS: Basophils % 0.4 %; Eosinophils % 0.5 %; Hematocrit 39.2 % (42.0-52.0); Hemoglobin 12.7 g/dL (11.7-16.6); Lymphocytes % 13.5 %; Mean Corpuscular HGB Conc 32.4 g/dL (30.0-36.0); Mean Corpuscular Hemoglobin 31.1 pg (28.0-34.0); Mean Corpuscular Volume 95.8 fL (80-94); Mean Platelet Volume 8.5 fL (7.4-10.4); Monocytes # 1.1 10^3/uL (0.2-0.9); Neutrophils # 5.4 10^3/uL (1.8-7.7); Neutrophils % 71.1 %; Nucleated Red Blood Cells % 0 %; Platelet Count 157 10^3/cmm (130-400); Red Blood Count 4.09 10^6/uL (4.1-5.3); Red Cell Distribution Width 14.7 % (12.1-15.1); White Blood Count 7.6 10^3/uL (4.0-10.0)
[2019-06-30 05:53] LABS: Alanine Aminotransferase 15 U/L (0-41); Alkaline Phosphatase 83 IU/L (40-130); Anion Gap 18.8 (5-19); Blood Urea Nitrogen 15 mg/dL (8-23); Calcium 8.7 mg/Dl (8.8-10.2); Carbon Dioxide 25 mmol/L (22-29); Chloride 99 mmol/L (98-107); Globulin 3.1 g/dL (1.3-4.6); Glomerular Filtration Rate 136.5 mL/min (90-130); Glucose 123 mg/dL (74-106); Sodium 140 mmol/L (136-145); Total Bilirubin 0.7 mg/dL (0.15-1.2); Total Protein 6.1 g/dL (6.6-8.7)
[2019-06-30 06:29] LABS: Aspartate Amino Transferase 31 U/L (0-40); Potassium 2.8 mmol/L (3.5-5.1)
[2019-06-30] MEDS: multivitamin therapeutic Tablet 1 TAB PO (08:46)
[2019-06-30] MEDS: folic acid 1 mg Tablet PO (08:46)
[2019-06-30] MEDS: LORazepam 2 mg/mL INJ 1 mL 1 MG IVP ×2 (08:46→15:04)
[2019-06-30] MEDS: thiamine 100 mg Tablet PO (08:46)
[2019-06-30] MEDS: sodium hypochlorite 0.25% Btl 473 mL 1 APPLIC TOPICAL ×2 (08:48→17:17)
[2019-06-30] MEDS: predniSONE 20 mg Tablet 40 MG OG-TUBE (08:51)
[2019-06-30] MEDS: potassium chloride premix 40 MEQ/100 ML PREMIX 25 MEQ IV (08:51)
[2019-06-30] MEDS: potassium chloride oral liq 20 mEq/15 mL UDC 40 MEQ OG-TUBE ×2 (08:51→17:24)
--- NOTE | 2019-06-30 09:00 | XR_ITS ---
WS: [id number] Portable AP upright chest, 06/30/2019 Clinical Data: resp failure Comparison: Portable chest, yesterday Findings: No nodules, masses or effusions are seen. The heart is normal. The pulmonary vascularity is not increased. No pneumonia or pneumothorax is seen. There is almost total clearing of the bilateral lower lobe discoid atelectasis. The endotracheal tube, nasogastric tube and monitor leads remain the same. XR/XR chest 1V portable [id number] Impression: Clearing of bilateral lower lobe atelectasis.
[2019-06-30] MEDS: propofol 1,000 MG/100 ML INJ 48.4 MG IV ×6 (13:27→22:53)
--- NOTE | 2019-06-30 13:27 | PM.PN ---
Subjective Subjective: Interval history: Satish is sedated on the ventilator. He continues to run fevers. Medications: Reviewed: Yes Vitals/I&O/Wt Last Vital Signs Temp 100.8 F H 06/30/19 06:00 Pulse 89 06/30/19 11:40 Resp 22 H 06/30/19 11:36 BP 141/71 06/30/19 06:00 Pulse Ox 92 06/30/19 11:36 06/29/19 06/30/19 06/30/19 22:59 06:59 14:59 Intake Total 1142.03 / 1617.53 967.26 / 2584.79 297 / 297 Output Total 2900 / 2900 Balance -1757.97 / -1282.47 967.26 / -315.21 297 / 297 Weight last 48 hrs Weight 134.399 kg Weight 137.438 kg Physical Exam Narrative: EXAM NARRATIVE: is a sedated white male, on the ventilator. Secretions from upper airway are noted in the Vacutainer by the side of the bed. Neck is supple, no masses Cardiovascular regular rate and rhythm without murmur Lungs coarse at the bases. Occasional wheeze Abdomen is soft obese nontender. Extremities edema. Erythema is improving. Odor is improving. Scrotum demonstrates small tunneled area. Cannot rule out fistula from bladder. Urinary Catheter Management^: Jeffery: Cath Placed During This Visit: no Data Micro: Micro: Microbiology 06/28/19 16:45 Urine Culture - Pr eliminary Urine Catheterize d Gram Negative R ods 06/28/19 04:50 Gram Stain - Final Sputum - Endotrac heal Tube Aspirate Sputum Culture - F inal A&P Assessment and plan (1) Respiratory failure: Multifactorial. Likely secondary to fluid overload as well as sepsis. Echocardiogram largely normal Status: Acute Code(s): J96.90 - Respiratory failure, unspecified, unspecified whether with hypoxia or hypercapnia (2) Cellulitis: Placed on vancomycin, Zosyn. Secondary to persistent fever Zosyn has been changed to Primaxin. Culture has returned Klebsiella from the blood. This is sensitive to Primaxin Status: Acute Code(s): L03.90 - Cellulitis, unspecified (3) Alcohol abuse: [facility] protocol Status: Acute Code(s): F10.10 - Alcohol abuse, uncomplicated (4) Hypokalemia: Still present. IV and oral supplement started Status: Acute Code(s): E87.6 - Hypokalemia (5) Hypertension: Stable Status: Acute Code(s): I10 - Essential (primary) hypertension (6) Obesity, morbid: Status: Acute Code(s): E66.01 - Morbid (severe) obesity due to excess calories (7) Sepsis: IV antibiotics initiated. Culture grew Klebsiella. This is sensitive to macrolides. Status: Acute Code(s): A41.9 - Sepsis, unspecified organism Attestations Medical Necessity Statement*: Needs continued hospitalization for IV antibiotics secondary to sepsis Coding Level of Care Code Acute Senior Medical Billing Specialist for [facility] Fwd Diagnoses Respiratory failure J96.90 Cellulitis L03.90 Alcohol abuse F10.10 Hypokalemia E87.6 Hypertension I10 Obesity, morbid E66.01 Sepsis A41.9
[2019-06-30 13:31] LABS: Glucose Point of Care 157 mg/dL (70-110)
[2019-06-30] MEDS: sodium chlor 0.9% + KCl 20 mEq 20 MEQ/1,000 ML BAG 30 MEQ IV ×2 (13:38→13:39)
--- NOTE | 2019-06-30 14:49 | PC.CHAP ---
Pastoral Care Encounter/Spiritual Assessment Type of Contact [x] Declined senior database engineer visit [] Patient/Family/Request visit [] Outpatient visit [] Follow-up visit [] Physician referral [] Code/Alert [] Routine visit [] Staff referral [] Actively dying [] Patient sleeping [] Family support [] [] Out of room [] Palliative care [] [] Receiving care in room [] Pre-surgical visit [] Trauma [] Long length of stay [] ICU visit [] Other: Relational/Emotional Strength [] Patient feels connected with others/family/visitors/staff [] Distress [] Loneliness/isolation [] Abandonment Spirituality of Patient [] Person of Maryan [] Attends Jain of their Maryan [] Believes in Prayer [] Reads Bible or Yazdanism materials [] There are Spiritual issues to be addressed [place]yer Interventions [] Prayer [] Active listening [] Non-anxious presence [] Spiritual/emotional support [] Crisis/trauma care [] Spiritual counseling [] Bereavement support [] Provided bereavement packet [] Provided Bible/devotional materials [] Provided toy/stuffed animal, coloring book to patient or family member [] Completed spiritual assessment [] Provided Communion [] Anointing/[place] [] Salvation [] Other: Impact on Illness or Injury [] Angry [] Fearful [] Anxious [] Often cries [] Exhaustion [] Unable to work [] Unable to attend religion [] Unable to walk/stand [] Unable to read [] Unable to drive [] Unable to eat/drink [] Unable to sleep [] Unable to be with family [] Other: Summary Patient requested not to be visited by a senior database engineer. senior database engineer Master Alex Time spent with patient 2 minutes
--- NOTE | 2019-06-30 16:02 | PC.PT ---
PT note; patient remains intubated and sedated, Dr. Miller is hoping for extubation on Wednesday; nursing states performing range of motion during hygiene care until then: Will follow
[2019-06-30] MEDS: enoxaparin 40 mg/0.4 mL Syringe SUBCUT (21:14)
[2019-07-01] VITALS (30 sets, daily range): BP systolic 118–144; BP diastolic 65–79; PULSE 72–88; RESP 14–30; TEMP 38.3–40; O2SAT 89–95
[2019-07-01] MEDS: propofol 1,000 MG/100 ML INJ 48.4 MG IV (00:35)
[2019-07-01] MEDS: propofol 1,000 MG/100 ML INJ 44.4 MG IV ×4 (02:37→11:18)
[2019-07-01 03:22] LABS: Basophils % 0.2 %; Eosinophils % 0.2 %; Hematocrit 36.1 % (42.0-52.0); Hemoglobin 11.7 g/dL (11.7-16.6); Lymphocytes # 1.2 10^3/uL (0.8-4.8); Mean Corpuscular HGB Conc 32.4 g/dL (30.0-36.0); Mean Corpuscular Hemoglobin 29.4 pg (28.0-34.0); Mean Corpuscular Volume 90.7 fL (80-94); Mean Platelet Volume 8.2 fL (7.4-10.4); Monocytes # 0.7 10^3/uL (0.2-0.9); Monocytes % 11.9 %; Nucleated Red Blood Cells % 0 %; Platelet Count 115 10^3/cmm (130-400); Red Blood Count 3.98 10^6/uL (4.1-5.3); Red Cell Distribution Width 14.4 % (12.1-15.1)
[2019-07-01] MEDS: FUROsemide 10 mg/mL SDV 10mL 60 MG IVP ×2 (03:36→16:49)
[2019-07-01] MEDS: ipratropium-albuterol 3 mL Neb INHALATION ×6 (03:47→22:56)
[2019-07-01 03:52] LABS: Anion Gap 13.3 (5-19); Blood Urea Nitrogen 23 mg/dL (8-23); Calcium 8.5 mg/Dl (8.8-10.2); Carbon Dioxide 29 mmol/L (22-29); Chloride 101 mmol/L (98-107); Glomerular Filtration Rate 136.5 mL/min (90-130); Glucose 166 mg/dL (74-106); Potassium 3.3 mmol/L (3.5-5.1); Sodium 140 mmol/L (136-145)
[2019-07-01 03:53] LABS: Magnesium 2.3 mg/dL (1.7-2.3); Vancomycin Trough 14.4 ug/mL (10-15)
[2019-07-01 05:13] LABS: ABG PCO2 37.7 mmHg (35-45); ABG PH Result 7.55 (7.35-7.45); Arterial Blood Gas Hematocrit 41.3 % (42-52); Base Excess ABG 9.5 mmol/L (-2.0-2.0); Blood Gas Allen Test Pos; Blood Gas Sample Site Radial, right; Blood Gas Sample Type Arterial; Blood Gas Tidal Volume 0.55; HCO3 ABG 32.6 mmol/L (22-26); PO2 ABG 61.1 mmHg (80.0-100.0)
--- NOTE | 2019-07-01 06:33 | PC.NURSE ---
Feeding included 125 of tube feeding and 40 of water flush
--- NOTE | 2019-07-01 07:52 | XRR_ITS ---
PROCEDURE INFORMATION: Exam: XR Chest, 1 View Exam date and time: 07/01/2019 5:18 AM Age: 64 years old Clinical indication: Other: Resp failure TECHNIQUE: Imaging protocol: XR of the chest Views: 1 view. COMPARISON: CR XR chest 1V portable [id number] 06/30/2019 5:15 AM FINDINGS: Tubes, catheters and devices: There is an endotracheal tube present with the tip approximately 1 cm above the expected location of the nita. An enteric tube extends down to the stomach. Lungs: Decreased lung volumes. Bibasilar airspace disease likely related to atelectasis. Pleural space: Trace left pleural effusion. No right pleural effusion. No pneumothorax. Heart/Mediastinum: The heart is partially silhouetted out but may be enlarged. Bones/joints: No acute osseous abnormality. XR/XR chest 1V portable [id number] IMPRESSION: 1. Favor bibasilar atelectasis. 2. The endotracheal tube tip is close to the nita.
[2019-07-01] MEDS: LORazepam 2 mg/mL INJ 1 mL IVP ×2 (08:03→17:10)
[2019-07-01] MEDS: acetaminophen 325 mg Tablet 650 MG PO ×4 (08:04→21:25)
--- NOTE | 2019-07-01 10:14 | PC.NURSE ---
sedation vacation completed. moved all ext. and followed commands. tried to talk. reality orientation done and back to sedation.
[2019-07-01] MEDS: potassium chloride oral liq 20 mEq/15 mL UDC 40 MEQ OG-TUBE ×2 (10:32→22:36)
[2019-07-01] MEDS: predniSONE 20 mg Tablet 40 MG OG-TUBE (10:38)
[2019-07-01] MEDS: potassium chloride premix 40 MEQ/100 ML PREMIX 25 MEQ IV (10:39)
[2019-07-01] MEDS: sodium hypochlorite 0.25% Btl 473 mL 1 APPLIC TOPICAL (10:40)
--- NOTE | 2019-07-01 11:53 | PC.CHAP ---
Patient did not want Clergy visits.
--- NOTE | 2019-07-01 12:50 | PC.NURSE ---
0805 precedex to 0.2mcg/kg/min and propofol to 20mcg.
--- NOTE | 2019-07-01 13:37 | P.PN_ITS ---
Subjective Subjective: Interval history: Satish is sedated. He is on the ventilator. He can open his eyes to verbal stimuli. Medications: Reviewed: Yes Vitals/I&O/Wt Last Vital Signs Temp 101.8 F H 07/01/19 12:00 Pulse 79 07/01/19 10:57 Resp 22 H 07/01/19 12:21 BP 129/77 07/01/19 12:00 Pulse Ox 92 07/01/19 12:00 06/30/19 07/01/19 07/01/19 22:59 06:59 14:59 Intake Total 1293.134 / 2760.634 680.293 / 3440.927 820.338 / 820.338 Output Total 2400 / 2400 1800 / 4200 Balance -1106.866 / 360.634 -1119.707 / -759.073 820.338 / 820.338 Weight last 48 hrs Weight 135.171 kg Weight 134.399 kg Physical Exam Narrative: EXAM NARRATIVE: General exam is no apparent distress, sedated on the ventilator Cardiovascular regular rate and rhythm, no murmur Lungs diminished breath sounds bilaterally. No wheezing heard today. Abdomen is soft. Positive bowel sounds. Obese. Extremities 1+ edema. Overall erythema much improved. Urinary Catheter Management^: Jeffery: Cath Placed During This Visit: no Data Micro: Micro: Microbiology 06/28/19 16:45 Urine Culture - Fi nal Urine Catheterize d Klebsiella pneu moniae 06/30/19 16:29 Blood Culture - Pr eliminary Blood [facility] 06/30/19 16:29 Blood Culture - Pr eliminary Blood [facility] 06/28/19 04:50 Gram Stain - Final Sputum - Endotrac heal Tube Aspirate Sputum Culture - F inal A&P Assessment and plan (1) Respiratory failure: Multifactorial. Likely secondary to fluid overload as well as sepsis. Echocardiogram largely normal. Still requiring a fair amount of FiO2. Not ready for extubation at this time. Diuresed well yesterday Status: Acute Code(s): J96.90 - Respiratory failure, unspecified, unspecified whether with hypoxia or hypercapnia (2) Cellulitis: Placed on vancomycin, Zosyn. Secondary to persistent fever Zosyn has been changed to Primaxin. Culture has returned Klebsiella from the blood. This is sensitive to Primaxin. He appears to be improving. He did have a temperature e levation today, possibly secondary to alcohol withdrawal Status: Acute Code(s): L03.90 - Cellulitis, unspecified (3) Alcohol abuse: CIWA protocol placed initially. I believe he has some alcohol withdrawal. Using Precedex, Ativan Status: Acute Code(s): F10.10 - Alcohol abuse, uncomplicated (4) Hypokalemia: Improved Status: Acute Code(s): E87.6 - Hypokalemia (5) Hypertension: Stable Status: Acute Code(s): I10 - Essential (primary) hypertension (6) Obesity, morbid: Status: Acute Code(s): E66.01 - Morbid (severe) obesity due to excess calories (7) Sepsis: IV antibiotics initiated. Culture grew Klebsiella. This is sensitive to Carbapenem antibiotics Status: Acute Code(s): A41.9 - Sepsis, unspecified organism (8) Thrombocytopenia: Platelet count has been slowly and steadily decreasing. Will review again tomorrow. Continue anticoagulation currently. Status: Acute Code(s): D69.6 - Thrombocytopenia, unspecified Attestations Medical Necessity Statement*: Needs continued hospitalization for respiratory support secondary to failure requiring ventilatory support as well as IV antibiotics for sepsis Critical Care Time: Critical care time: 30 - 74 mins Coding Level of Care Code Acute Sales Support Manager for [facility] Diagnoses Respiratory failure J96.90 Cellulitis L03.90 Alcohol abuse F10.10 Hypokalemia E87.6 Hypertension I10 Obesity, morbid E66.01 Sepsis A41.9 Thrombocytopenia D69.6
[2019-07-01] MEDS: multivitamin therapeutic Tablet 1 TAB PO (13:44)
[2019-07-01] MEDS: folic acid 1 mg Tablet PO (13:45)
[2019-07-01] MEDS: thiamine 100 mg Tablet PO (14:00)
[2019-07-01] MEDS: propofol 1,000 MG/100 ML INJ 24.3 MG IV (14:21)
--- NOTE | 2019-07-01 14:25 | PC.NUTR ---
Consult received for TF recommendations as follows: ABW 215 (40% correction), wounds noted and PRO adjusted. Labs Reviewed: K 3.3, Cr 0.6, GFR 136.5, BG 166 Resp notes: Tmax 38.8, VE 10 Energy needs: PSU 2002b: 2278 kcal, PRO 98 g TF RECOMMENDATIONS: Pulmocare with goal rate of 60 ml/hr providing 2160 kcal (95%), 91 g PRO (93%), and 1130 ml fluid (50%)(%NEEDS). Suggest starting TF at 30 ml/hr and increase by 10 ml Q6H as tolerated till goal rate is met. Suggest H2O flushes of 150 ml Q4H to approach fluid needs or per physician. Wagner Garcia, MS, RD, LD
[2019-07-01] MEDS: propofol 1,000 MG/100 ML INJ 40.6 MG IV (18:07)
[2019-07-01] MEDS: propofol 1,000 MG/100 ML INJ 32.4 MG IV (21:06)
[2019-07-01] MEDS: sodium chlor 0.9% + KCl 20 mEq 20 MEQ/1,000 ML BAG 30 MEQ IV (22:34)
[2019-07-01] MEDS: enoxaparin 40 mg/0.4 mL Syringe SUBCUT (22:35)
[2019-07-02] VITALS (30 sets, daily range): BP systolic 108–128; BP diastolic 66–81; PULSE 62–77; RESP 14–25; TEMP 37.5–38.8; O2SAT 90–94; BMI 44.1
[2019-07-02] MEDS: propofol 1,000 MG/100 ML INJ 32.4 MG IV ×6 (00:21→20:46)
[2019-07-02] MEDS: acetaminophen 325 mg Tablet 650 MG PO ×2 (02:44→15:03)
[2019-07-02] MEDS: propofol 1,000 MG/100 ML INJ 28.4 MG IV (03:01)
[2019-07-02] MEDS: FUROsemide 10 mg/mL SDV 10mL 60 MG IVP ×2 (03:08→15:02)
[2019-07-02] MEDS: ipratropium-albuterol 3 mL Neb INHALATION ×6 (03:59→23:53)
[2019-07-02 04:46] LABS: ABG PH Result 7.51 (7.35-7.45); Arterial Blood Gas Hematocrit 42.7 % (42-52); Base Excess ABG 8.1 mmol/L (-2.0-2.0); Blood Gas Allen Test Pos; Blood Gas Sample Site Radial, right; Blood Gas Sample Type Arterial; HCO3 ABG 31.8 mmol/L (22-26); PO2 ABG 67.8 mmHg (80.0-100.0)
[2019-07-02 05:27] LABS: Basophils % 0.4 %; Eosinophils % 0.1 %; Hematocrit 39.7 % (42.0-52.0); Hemoglobin 12.9 g/dL (11.7-16.6); Lymphocytes # 1.9 10^3/uL (0.8-4.8); Lymphocytes % 22.6 %; Mean Corpuscular HGB Conc 32.5 g/dL (30.0-36.0); Mean Corpuscular Hemoglobin 29.7 pg (28.0-34.0); Mean Corpuscular Volume 91.5 fL (80-94); Mean Platelet Volume 8.7 fL (7.4-10.4); Monocytes # 1.1 10^3/uL (0.2-0.9); Monocytes % 13.6 %; Neutrophils # 5.2 10^3/uL (1.8-7.7); Neutrophils % 62.5 %; Nucleated Red Blood Cells % 0 %; Platelet Count 133 10^3/cmm (130-400); Red Blood Count 4.34 10^6/uL (4.1-5.3); Red Cell Distribution Width 14.5 % (12.1-15.1); White Blood Count 8.2 10^3/uL (4.0-10.0)
[2019-07-02 05:53] LABS: Alanine Aminotransferase 27 U/L (0-41); Albumin Level 3.2 g/dL (3.5-5.2); Alkaline Phosphatase 73 IU/L (40-130); Anion Gap 14.2 (5-19); Aspartate Amino Transferase 88 U/L (0-40); Blood Urea Nitrogen 27 mg/dL (8-23); Calcium 8.7 mg/Dl (8.8-10.2); Carbon Dioxide 30 mmol/L (22-29); Chloride 103 mmol/L (98-107); Globulin 3.8 g/dL (1.3-4.6); Glucose 151 mg/dL (74-106); Potassium 3.2 mmol/L (3.5-5.1); Sodium 144 mmol/L (136-145); Total Bilirubin 0.6 mg/dL (0.15-1.2)
--- NOTE | 2019-07-02 06:00 | XRR_ITS ---
PROCEDURE INFORMATION: Exam: XR Chest, 1 View Exam date and time: 07/02/2019 4:02 AM Age: 64 years old Clinical indication: Fever; Additional info: Resp failure TECHNIQUE: Imaging protocol: XR of the chest Views: 1 view. COMPARISON: CR XR chest 1V portable [id number] 07/01/2019 5:08 AM FINDINGS: Tubes, catheters and devices: Tip of the ET tube still about 1 cm above the expected location of the nita. Tip of the enteric tube still in the proximal stomach. Lungs: Prominent left and mild right basilar atelectasis; conceivable interval worsening of the left basilar atelectasis. Pleural space: No interval large pleural effusion. Still no apparent pneumothorax. Heart/Mediastinum: Slight cardiomegaly still conceivable although left heart margin still not well visualized. Bones/joints: No apparent change in the bones. Heterogeneous increased density over the right shoulder of uncertain cause. Soft tissues: Small metallic foreign body in the left axilla still likely. XR/XR chest 1V portable [id number] IMPRESSION: 1. Tip of the ET tube still close to the nita, therefore 3 cm of retraction suggested for consideration. Enteric tube still in adequate position. 2. Possible interval worsening of the prominent left basilar atelectasis. Continued slight atelectasis in the right lung base. Slight cardiomegaly still conceivable. Other findings detailed above.
--- NOTE | 2019-07-02 07:00 | USR_ITS ---
PROCEDURE INFORMATION: Exam: US Duplex Lower Extremity Veins Exam date and time: 07/01/2019 4:47 PM Age: 64 years old Clinical indication: Edema, localized; Lower extremity, bilateral TECHNIQUE: Imaging protocol: Real-time duplex ultrasound of the Lower Extremities with 2-D beltrán scale, color Doppler flow and spectral waveform analysis with image documentation. Complete exam focused on the bilateral lower extremity veins. COMPARISON: No relevant prior studies available. FINDINGS: Right deep veins: Unremarkable. The common femoral, femoral, proximal profunda femoral and popliteal veins are patent without thrombus. Normal Doppler waveforms. Normal compressibility and/or augmentation response. Right superficial veins: Saphenofemoral junction is patent without thrombus. Left deep veins: Unremarkable. The common femoral, femoral, proximal profunda femoral and popliteal veins are patent without thrombus. Normal Doppler waveforms. Normal compressibility and/or augmentation response. Left superficial veins: Saphenofemoral junction is patent without thrombus. Soft tissues: Prominent bilateral inguinal lymph nodes. Suboptimal evaluation of the calf veins. US/CV venous duplex [facility] [id number] IMPRESSION: No evidence of deep venous thrombosis above the calf. Prominent bilateral inguinal lymph nodes. Suboptimal evaluation of the calf veins.
--- NOTE | 2019-07-02 08:29 | PM.PN ---
Subjective Subjective: Interval history: Sedated, on ventilator. No new issues overnight. Respiratory has increased PEEP earlier this morning, appropriately, for unimproved FiO2. Medications: Reviewed: Yes Vitals/I&O/Wt Last Vital Signs Temp 99.5 F 07/02/19 07:39 Pulse 66 07/02/19 07:39 Resp 18 07/02/19 07:56 BP 109/71 07/02/19 07:39 Pulse Ox 93 07/02/19 07:39 07/01/19 07/02/19 07/02/19 22:59 06:59 14:59 Intake Total 1391.500 / 2342.300 1104 / 3446.300 Output Total 1500 / 1500 2150 / 3650 Balance -108.500 / 842.300 -1046 / -203.700 Weight last 48 hrs Weight 135.76 kg Weight 135.171 kg Physical Exam Narrative: EXAM NARRATIVE: General exam is an obese white male, sedated and on the ventilator. Ventilator settings were reviewed. Elevated temperature has improved Cardiovascular regular rate and rhythm without murmur Lungs diminished breath sounds at the bases but clear Abdomen is obese, positive bowel sounds. Scrotum is edematous Extremities trace to 1+ edema. Much improved erythema. Overall appearance has improved significantly from admission Urinary Catheter Management^: Jeffery: Cath Placed During This Visit: no Data Micro: Micro: Microbiology 07/01/19 16:43 Blood Culture - Pr eliminary Blood [facility] 07/01/19 16:37 Blood Culture - Pr eliminary Blood [facility] 06/30/19 16:29 Blood Culture - Pr eliminary Blood NEGATIVE TO NUBIA E 06/30/19 16:29 Blood Culture - Pr eliminary Blood NEGATIVE TO NUBIA E 06/28/19 16:45 Urine Culture - Fi nal Urine Catheterize d Klebsiella pneu moniae A&P Assessment and plan (1) Respiratory failure: Multifactorial. Likely secondary to fluid overload as well as sepsis. Echocardiogram largely normal. Still requiring a fair amount of FiO2. Not ready for extubation at this time. PEEP has been increased. Continues to diurese some. BUN has started to rise slightly and diuresis may need to be discontinued in the next 1 to 2 days. Status: Acute Code(s): J96.90 - Respiratory failure, unspecified, unspecified whether with hypoxia or hypercapnia (2) Cellulitis: Placed on vancomycin, Zosyn. Secondary to persistent fever Zosyn has been changed to Primaxin. Culture has returned Klebsiella from the blood. This is sensitive to Primaxin. He appears to be improving. He did have a temperature elevation yesterday, possibly secondary to alcohol withdrawal. This is improved Status: Acute Code(s): L03.90 - Cellulitis, unspecified (3) Alcohol abuse: CIWA protocol placed initially. I believe he has some alcohol withdrawal. Using Precedex, Ativan in addition to propofol for sedation. When respiratory status has improved this can likely be weaned Status: Acute Code(s): F10.10 - Alcohol abuse, uncomplicated (4) Hypokalemia: Still present. IV potassium ordered as well as p.o. Status: Acute Code(s): E87.6 - Hypokalemia (5) Hypertension: Stable Status: Acute Code(s): I10 - Essential (primary) hypertension (6) Obesity, morbid: Status: Acute Code(s): E66.01 - Morbid (severe) obesity due to excess calories (7) Sepsis: IV antibiotics initiated. Culture grew Klebsiella. This is sensitive to Carbapenem antibiotics. Repeat cultures negative to date Status: Acute Code(s): A41.9 - Sepsis, unspecified organism (8) Thrombocytopenia: Platelet count had been slowly and steadily decreasing. This appears stable today. Continue anticoagulation for DVT prophylaxis. Status: Acute Code(s): D69.6 - Thrombocytopenia, unspecified Attestations Medical Necessity Statement*: Needs continued hospitalization for IV antibiotics for sepsis, ventilatory support for respiratory failure. Coding Level of Care Code Acute Credit Reporting Clerk for [facility] Diagnoses Respiratory failure J96.90 Cellulitis L03.90 Alcohol abuse F10.10 Hypokalemia E87.6 Hypertension I10 Obesity, morbid E66.01 Sepsis A41.9 Thrombocytopenia D69.6
[2019-07-02] MEDS: potassium chloride oral liq 20 mEq/15 mL UDC 40 MEQ OG-TUBE ×2 (08:35→16:30)
[2019-07-02] MEDS: multivitamin therapeutic Tablet 1 TAB PO (08:35)
[2019-07-02] MEDS: predniSONE 20 mg Tablet 40 MG OG-TUBE (08:35)
[2019-07-02] MEDS: folic acid 1 mg Tablet PO (08:36)
[2019-07-02] MEDS: thiamine 100 mg Tablet PO (08:36)
[2019-07-02] MEDS: sennosides-docusate Tablet 2 TAB OG-TUBE ×2 (08:45→16:30)
[2019-07-02] MEDS: potassium chloride premix 40 MEQ/100 ML PREMIX 25 MEQ IV (09:25)
[2019-07-02] MEDS: LORazepam 2 mg/mL INJ 1 mL IVP (15:02)
[2019-07-02 18:03] LABS: Influenza A by IFA Negative (Negative); Influenza B by IFA Negative (Negative)
[2019-07-02] MEDS: enoxaparin 40 mg/0.4 mL Syringe SUBCUT (20:43)
[2019-07-02] MEDS: sodium chlor 0.9% + KCl 20 mEq 20 MEQ/1,000 ML BAG 30 MEQ IV (21:20)
[2019-07-03] VITALS (24 sets, daily range): BP systolic 111–129; BP diastolic 65–78; PULSE 69–114; RESP 14–28; TEMP 37.3–39.7; O2SAT 92–95; BMI 44.7
[2019-07-03] MEDS: propofol 1,000 MG/100 ML INJ 32.4 MG IV ×8 (00:31→20:49)
[2019-07-03] MEDS: FUROsemide 10 mg/mL SDV 10mL 60 MG IVP ×2 (03:17→14:04)
[2019-07-03] MEDS: ipratropium-albuterol 3 mL Neb INHALATION ×9 (04:04→23:07)
[2019-07-03] MEDS: acetaminophen 325 mg Tablet 650 MG PO ×3 (04:30→21:51)
[2019-07-03 05:35] LABS: Basophils % 0.2 %; Eosinophils % 0.1 %; Hematocrit 42.2 % (42.0-52.0); Hemoglobin 13.4 g/dL (11.7-16.6); Lymphocytes # 1.3 10^3/uL (0.8-4.8); Lymphocytes % 10.5 %; Mean Corpuscular HGB Conc 31.8 g/dL (30.0-36.0); Mean Corpuscular Hemoglobin 30.4 pg (28.0-34.0); Mean Corpuscular Volume 95.7 fL (80-94); Mean Platelet Volume 9.6 fL (7.4-10.4); Monocytes # 1.4 10^3/uL (0.2-0.9); Monocytes % 11.1 %; Neutrophils # 9.6 10^3/uL (1.8-7.7); Neutrophils % 77.3 %; Nucleated Red Blood Cells % 0 %; Platelet Count 121 10^3/cmm (130-400); Red Blood Count 4.41 10^6/uL (4.1-5.3); Red Cell Distribution Width 14.6 % (12.1-15.1); White Blood Count 12.5 10^3/uL (4.0-10.0)
[2019-07-03 05:39] LABS: ABG PCO2 39.3 mmHg (35-45); ABG PH Result 7.52 (7.35-7.45); Base Excess ABG 8.8 mmol/L (-2.0-2.0); Blood Gas Allen Test Pos; Blood Gas Sample Site Radial, right; Blood Gas Sample Type Arterial; Blood Gas Tidal Volume 0.5; HCO3 ABG 32.3 mmol/L (22-26); PO2 ABG 68.4 mmHg (80.0-100.0)
[2019-07-03 06:04] LABS: Alanine Aminotransferase 43 U/L (0-41); Alkaline Phosphatase 76 IU/L (40-130); Anion Gap 13.6 (5-19); Aspartate Amino Transferase 120 U/L (0-40); Blood Urea Nitrogen 30 mg/dL (8-23); Calcium 9.2 mg/Dl (8.8-10.2); Carbon Dioxide 30 mmol/L (22-29); Chloride 106 mmol/L (98-107); Globulin 4.1 g/dL (1.3-4.6); Glucose 161 mg/dL (74-106); Potassium 3.6 mmol/L (3.5-5.1); Sodium 146 mmol/L (136-145); Total Bilirubin 0.8 mg/dL (0.15-1.2); Total Protein 7.1 g/dL (6.6-8.7)
--- NOTE | 2019-07-03 08:27 | XR_ITS ---
WS: [id number] CHEST XRAY TECHNIQUE: Portable chest. CLINICAL INFORMATION: resp failure COMPARISON: [id number] FINDINGS: Endotracheal tube with tip 2.4 cm above the nita. Enteric tube with tip below the diaphragm. Heart: Cardiomegaly. Shallow inspiration. Mild pulmonary vascular congestion. Lungs: Trace left pleural fluid. No focal pneumonia. Bones: Normal visualized bony structures. XR/XR chest 1V portable [id number] IMPRESSION: 1. Endotracheal tube with tip 2.4 cm above the nita. Enteric tube with tip b elow the diaphragm. 2. Shallow inspiration with cardiomegaly and mild pulmonary vascular congestio n. 3. Trace left pleural fluid.
[2019-07-03] MEDS: multivitamin therapeutic Tablet 1 TAB PO (09:18)
[2019-07-03] MEDS: thiamine 100 mg Tablet PO (09:18)
[2019-07-03] MEDS: folic acid 1 mg Tablet PO (09:18)
[2019-07-03] MEDS: predniSONE 20 mg Tablet 40 MG OG-TUBE (09:18)
[2019-07-03] MEDS: sennosides-docusate Tablet 2 TAB OG-TUBE ×2 (09:19→17:04)
[2019-07-03] MEDS: potassium chloride oral liq 20 mEq/15 mL UDC 40 MEQ OG-TUBE ×2 (09:19→17:03)
--- NOTE | 2019-07-03 09:22 | PM.PN ---
Subjective Subjective: Interval history: Sedated, on ventilator. No new issues overnight. Able to titrate O2 slightly down to 35% this morning but overall no gross change in patient condition. Remains intubated and sedated does not really wake up to calling name. Medications: Reviewed: Yes Vitals/I&O/Wt Last Vital Signs Temp 99.6 F 07/03/19 08:00 Pulse 77 07/03/19 08:00 Resp 19 H 07/03/19 09:07 BP 122/68 07/03/19 08:00 Pulse Ox 93 07/03/19 08:00 07/02/19 07/03/19 07/03/19 22:59 06:59 14:59 Intake Total 1502 / 2081.06 1542.375 / 3623.435 184.7 / 184.7 Output Total 1300 / 1300 1600 / 2900 Balance 202 / 781.06 -57.625 / 723.435 184.7 / 184.7 Weight last 48 hrs Weight 137.495 kg Weight 135.76 kg Physical Exam Narrative: EXAM NARRATIVE: General intubated sedated CVS S1-S2 is normal Respiratory system clear to auscultation anteriorly. Not auscultated posteriorly due to patient positioning. Extremities grossly swollen extensive skin changes and scaling likely from chronic venous stasis Urinary Catheter Management^: Jeffery: Cath Placed During This Visit: no Data Micro: Micro: Microbiology 07/01/19 16:43 Blood Culture - Pr eliminary Blood NEGATIVE TO NUBIA E 07/01/19 16:37 Blood Culture - Pr eliminary Blood NEGATIVE TO NUBIA E A&P Assessment and plan (1) Respiratory failure: Multifactorial. Likely secondary to fluid overload as well as sepsis. Echocardiogram largely normal. Still requiring a fair amount of FiO2. Not ready for extubation at this time. PEEP has been increased. Continues to diurese some. BUN has started to rise slightly and diuresis may need to be discontinued in the next 1 to 2 days. Status: Acute Code(s): J96.90 - Respiratory failure, unspecified, unspecified whether with hypoxia or hypercapnia (2) Cellulitis: Placed on vancomycin, Zosyn. changed to Primaxin. Culture has returned Klebsiella from the blood. This is sensitive to Primaxin. He did have a temperature elevation yesterday, possibly secondary to alcohol withdrawal. This is improved Status: Acute Code(s): L03.90 - Cellulitis, unspecified (3) Alcohol abuse: CIWA protocol placed initially. Using Precedex, Ativan in addition to propofol for sedation. When respiratory status has improved this can likely be weaned Status: Acute Code(s): F10.10 - Alcohol abuse, uncomplicated (4) Hypokalemia: Still present. IV potassium ordered as well as p.o. Status: Acute Code(s): E87.6 - Hypokalemia (5) Hypertension: Stable Status: Acute Code(s): I10 - Essential (primary) hypertension (6) Obesity, morbid: Status: Acute Code(s): E66.01 - Morbid (severe) obesity due to excess calories (7) Sepsis: IV antibiotics initiated. Culture grew Klebsiella. This is sensitive to Carbapenem antibiotics. Repeat cultures negative to date Status: Acute Code(s): A41.9 - Sepsis, unspecified organism (8) Thrombocytopenia: Platelet count had been slowly and steadily decreasing. This appears stable today. Continue anticoagulation for DVT prophylaxis. Status: Acute Code(s): D69.6 - Thrombocytopenia, unspecified Attestations Medical Necessity Statement*: Optimization of respiratory status and management of sepsis Critical Care Time: Critical care time: less than 30 mins Coding Level of Care Code Acute Aerial Planting And Cultivation Manager for [facility] Fwd Diagnoses Respiratory failure J96.90 Cellulitis L03.90 Alcohol abuse F10.10 Hypokalemia E87.6 Hypertension I10 Obesity, morbid E66.01 Sepsis A41.9 Thrombocytopenia D69.6
--- NOTE | 2019-07-03 14:00 | PC.NURSE ---
Physician notified of patients rise in temperature after Tylenol administered. Awaiting orders at this time.
--- NOTE | 2019-07-03 16:27 | PC.NURSE ---
Verbal order received from Physician. Verbal order ready back for Ibuprofen times one, 400 mg suspension by NG tube. Will administer and re evaluated temperature in thirty minutes.
[2019-07-03] MEDS: ibuprofen Oral Susp 100 mg/5mL UDC 400 MG PO (16:44)
[2019-07-03 21:28] LABS: Vancomycin Trough 16.5 ug/mL (10-15)
[2019-07-03] MEDS: enoxaparin 40 mg/0.4 mL Syringe SUBCUT (21:43)
[2019-07-03] MEDS: sodium chlor 0.9% + KCl 20 mEq 20 MEQ/1,000 ML BAG 30 MEQ IV (21:44)
[2019-07-04] VITALS (28 sets, daily range): BP systolic 111–130; BP diastolic 68–81; PULSE 6–77; RESP 18–26; TEMP 36.5–39.2; O2SAT 92–95; BMI 44.7
[2019-07-04] MEDS: propofol 1,000 MG/100 ML INJ 32.4 MG IV ×3 (00:38→05:36)
[2019-07-04] MEDS: FUROsemide 10 mg/mL SDV 10mL 60 MG IVP ×2 (02:41→15:05)
[2019-07-04] MEDS: ipratropium-albuterol 3 mL Neb INHALATION ×5 (03:32→19:57)
[2019-07-04 05:09] LABS: ABG PCO2 41.5 mmHg (35-45); ABG PH Result 7.49 (7.35-7.45); Arterial Blood Gas Hematocrit 40.8 % (42-52); Base Excess ABG 7.6 mmol/L (-2.0-2.0); Blood Gas Allen Test Pos; Blood Gas Sample Site Radial, right; Blood Gas Sample Type Arterial; Blood Gas Tidal Volume 0.5; HCO3 ABG 31.7 mmol/L (22-26); PO2 ABG 63.9 mmHg (80.0-100.0)
[2019-07-04] MEDS: sennosides-docusate Tablet 2 TAB OG-TUBE ×2 (09:45→17:25)
[2019-07-04] MEDS: multivitamin therapeutic Tablet 1 TAB PO (09:46)
[2019-07-04] MEDS: thiamine 100 mg Tablet PO (09:46)
[2019-07-04] MEDS: potassium chloride oral liq 20 mEq/15 mL UDC 40 MEQ OG-TUBE ×2 (09:46→17:25)
[2019-07-04] MEDS: folic acid 1 mg Tablet PO (09:46)
[2019-07-04] MEDS: predniSONE 20 mg Tablet 40 MG OG-TUBE (09:46)
[2019-07-04] MEDS: propofol 1,000 MG/100 ML INJ 34.8 MG IV ×5 (09:47→19:47)
--- NOTE | 2019-07-04 09:58 | P.PN_ITS ---
Subjective Subjective: Interval history: No acute overnight events. Bradycardic to 60 this morning likely secondary to Precedex. Blood pressure is stable. Febrile to 102.7 yesterday. Currently on 45% FiO2 with PEEP of 10. PO2 of 63.9. CTA chest unable to be performed yesterday due to poor IV access and inability to get contrast. Will order VQ scan today. Blood culture from 1 3 remains negative to date. Will place PICC line Vitals/I&O/Wt Last Vital Signs Temp 97.7 F 07/04/19 06:00 Pulse 59 L 07/04/19 07:41 Resp 19 H 07/04/19 07:37 BP 119/74 07/04/19 06:00 Pulse Ox 94 07/04/19 07:37 07/03/19 07/04/19 07/04/19 22:59 06:59 14:59 Intake Total 1050.12 / 2212.16 985.75 / 3197.91 196.25 / 196.25 Output Total 2400 / 2400 2500 / 4900 Balance -1349.88 / -187.84 -1514.25 / -1702.09 196.25 / 196.25 Weight last 48 hrs Weight 137.348 kg Weight 137.495 kg Physical Exam Narrative: EXAM NARRATIVE: Intubated sedated however winces to pain and wakes up on calling name. CVS S1-S2 normal Respiratory system is clear to auscultation anteriorly bilaterally not auscultated posteriorly due to patient positioning Extremities unchanged exam compared to yesterday macerated skin in between the toes is noted. Abdomen is soft distended no rebound tenderness or guarding. Urinary Catheter Management^: Jeffery: Cath Placed During This Visit: no A&P Assessment and plan (1) Respiratory failure: Multifactorial. Likely secondary to fluid overload as well as sepsis. Echocardiogram largely normal. Still requiring a fair amount of FiO2. Not ready for extubation at this time. PEEP has been increased. Continues to diurese some. BUN has started to rise slightly and diuresis may need to be discontinued in the next 1 to 2 days. Status: Acute Code(s): J96.90 - Respiratory failure, unspecified, unspecified whether with hypoxia or hypercapnia (2) Cellulitis: Placed on vancomycin, Zosyn. changed to Primaxin. Culture has returned Klebsiella from the blood from 06/27. First documented negative cx from 06/30/19. This is sensitive to Primaxin. Continues to have hi9gh grade fever. Status: Acute Code(s): L03.90 - Cellulitis, unspecified (3) Alcohol abuse: CIWA protocol placed initially. Using Precedex, Ativan in addition to propofol for sedation. When respiratory status has improved this can likely be weaned Status: Acute Code(s): F10.10 - Alcohol abuse, uncomplicated (4) Hypokalemia: Still present. IV potassium ordered as well as p.o. Status: Acute Code(s): E87.6 - Hypokalemia (5) Hypertension: Stable Status: Acute Code(s): I10 - Essential (primary) hypertension (6) Obesity, morbid: Status: Acute Code(s): E66.01 - Morbid (severe) obesity due to excess calories (7) Sepsis: IV antibiotics initiated. Culture grew Klebsiella. This is sensitive to Carbapenem antibiotics. Repeat cultures negative to date Status: Acute Code(s): A41.9 - Sepsis, unspecified organism (8) Thrombocytopenia: Improving thrombocytopenia Status: Acute Code(s): D69.6 - Thrombocytopenia, unspecified Attestations Medical Necessity Statement*: management of klebsiella pn. septicemia, respiratory failure, unable to be extubated. Likely will tranfser to LTAC Coding Level of Care Code Acute Importer Or Exporter for Chg Fwd Diagnoses Respiratory failure J96.90 Cellulitis L03.90 Alcohol abuse F10.10 Hypokalemia E87.6 Hypertension I10 Obesity, morbid E66.01 Sepsis A41.9 Thrombocytopenia D69.6
[2019-07-04 11:12] LABS: Basophils % 0.3 %; Eosinophils % 0.4 %; Hematocrit 38.4 % (42.0-52.0); Lymphocytes # 1.5 10^3/uL (0.8-4.8); Lymphocytes % 14.3 %; Mean Corpuscular HGB Conc 31.3 g/dL (30.0-36.0); Mean Corpuscular Hemoglobin 29.6 pg (28.0-34.0); Mean Corpuscular Volume 94.6 fL (80-94); Mean Platelet Volume 10.6 fL (7.4-10.4); Monocytes # 0.8 10^3/uL (0.2-0.9); Monocytes % 7.1 %; Nucleated Red Blood Cells % 0 %; Platelet Count 181 10^3/cmm (130-400); Red Blood Count 4.06 10^6/uL (4.1-5.3); Red Cell Distribution Width 14.8 % (12.1-15.1); White Blood Count 10.6 10^3/uL (4.0-10.0)
[2019-07-04 11:26] LABS: Alanine Aminotransferase 50 U/L (0-41); Albumin Level 2.5 g/dL (3.5-5.2); Alkaline Phosphatase 68 IU/L (40-130); Anion Gap 14.8 (5-19); Aspartate Amino Transferase 92 U/L (0-40); Blood Urea Nitrogen 29 mg/dL (8-23); Calcium 8.8 mg/Dl (8.8-10.2); Carbon Dioxide 28 mmol/L (22-29); Chloride 106 mmol/L (98-107); Globulin 3.9 g/dL (1.3-4.6); Glomerular Filtration Rate 114.3 mL/min (90-130); Glucose 156 mg/dL (74-106); Potassium 3.8 mmol/L (3.5-5.1); Sodium 145 mmol/L (136-145); Total Bilirubin 0.8 mg/dL (0.15-1.2); Total Protein 6.4 g/dL (6.6-8.7)
--- NOTE | 2019-07-04 12:28 | XR_ITS ---
WS: [id number] Portable AP upright chest, 07/04/2019 Clinical Data: PICC line placement Comparison: Portable chest, 07/03/2019 Findings: The right PICC line ends in the superior vena cava. No pneumothorax is seen. The endotrache al tube and nasogastric tube remain in the same position. The patient has a poor inspiratory effort. The pulmonary vascularity is not increased. No pneumonia is seen. XR/XR chest 1V portable [id number] Impression: Satisfactory insertion of right PICC line.
--- NOTE | 2019-07-04 15:41 | CTR_ITS ---
PROCEDURE INFORMATION: Exam: CT Angiography Chest With Contrast Exam date and time: 07/04/2019 4:32 PM Age: 64 years old Clinical indication: Other: Difficulty weaning from vent; Hypoxia; Prior surgery; Surgery type: Hiatal hernia; Patient HX: Patient scanned twice due to poor bolus; Additional info: Difficulty weaning from vent , hypoxia TECHNIQUE: Imaging protocol: Computed tomographic angiography of the chest with intravenous contrast. 3D rendering: MIP and/or 3D reconstructed images were created by the technologist. Total DLP: 2341.65 mGy-cm Radiation optimization: All CT scans at this facility use at least one of these dose optimization techniques: automated exposure control; mA and/or kV adjustment per patient size (includes targeted exams where dose is matched to clinical indication); or iterative reconstruction. Contrast material: OMNI 350; Contrast volume: 95 ml; Contrast route: IV; COMPARISON: CTA Chest-Pulmonary Emb [id number] 12/15/2017 4:50 PM FINDINGS: Tubes, catheters and devices: There is an endotracheal tube in satisfactory position. Nasogastric tube extends into the stomach. Pulmonary arteries: There is a focal filling defect in a left pulmonary artery branch to the lateral basal segment in the left lower lobe consistent with a small embolus. No other emboli are identified. Aorta: Unremarkable. No aortic aneurysm. No aortic dissection. Lungs: There is partial atelectasis in both lower lobes, more on the right than on the left. Pleural space: There is small bilateral pleural effusions. Heart: Unremarkable. No cardiomegaly. No pericardial effusion. Intraperitoneal space: There is a tiny bit of ascites in the upper abdomen. Lymph nodes: There are mildly prominent paratracheal lymph nodes measuring up to 9 mm. These are more prominent than on previous examination. There is no gross adenopathy. Bones/joints: Unremarkable. No acute fracture. Soft tissues: Unremarkable. CT/CT angio chest PE protcl [id number] IMPRESSION: 1. Small pulmonary embolus in the left lower lobe 2. Small bilateral pleural effusions 3. Basilar atelectasis 4. Small ascites. Radiation Dose CTDIVOL = (mGy): DLP = 2341.65 (mGy-cm)
--- NOTE | 2019-07-04 16:20 | PC.CHAP ---
Pastoral Care Encounter/Spiritual Assessment Type of Contact [] Declined plate preparer visit [] Patient/Family/Request visit [] Outpatient visit [] Follow-up visit [] Physician referral [] Code/Alert [x] Routine visit [] Staff referral [] Actively dying [] Patient sleeping [] Family support [] [] Out of room [] Palliative care [] [] Receiving care in room [] Pre-surgical visit [] Trauma [] Long length of stay [] ICU visit [x] Other:intubated Relational/Emotional Strength [] Patient feels connected with others/family/visitors/staff [] Distress [] Loneliness/isolation [] Abandonment Spirituality of Patient [] Person of Maryan [] Attends Religious of their Maryan [] Believes in Prayer [] Reads Bible or Advent materials [] There are Spiritual issues to be addressed Plaster Die Maker Interventions [x] Prayer [] Active listening [x] Non-anxious presence [x] Spiritual/emotional support [] Crisis/trauma care [] Spiritual counseling [] Bereavement support [] Provided bereavement packet [] Provided Bible/devotional materials [] Provided toy/stuffed animal, coloring book to patient or family member [] Completed spiritual assessment [] Provided Communion [] Anointing/[place] [] Salvation [] Other: Impact on Illness or Injury [] Angry [] Fearful [] Anxious [] Often cries [] Exhaustion [] Unable to work [] Unable to attend confucianist [] Unable to walk/stand [] Unable to read [] Unable to drive [] Unable to eat/drink [] Unable to sleep [] Unable to be with family [] Other: Summary patient was intubated. prayed with nurse. Time spent with patient 2 minutes
[2019-07-04] MEDS: iohexol 350 mg/mL 100 mL Btl 95 ML IV (16:50)
[2019-07-04] MEDS: enoxaparin 40 mg/0.4 mL Syringe SUBCUT (20:31)
[2019-07-04] MEDS: acetaminophen 325 mg Tablet 650 MG PO (20:31)
[2019-07-04] MEDS: enoxaparin 100 mg/mL Syringe SUBCUT (22:03)
[2019-07-04] MEDS: sodium chlor 0.9% + KCl 20 mEq 20 MEQ/1,000 ML BAG 30 MEQ IV (22:03)
[2019-07-05] VITALS (34 sets, daily range): BP systolic 112–147; BP diastolic 69–89; PULSE 43–77; RESP 14–26; TEMP 36.4–40; O2SAT 94–100; BMI 44.0
[2019-07-05] MEDS: ipratropium-albuterol 3 mL Neb INHALATION ×8 (00:01→23:48)
[2019-07-05] MEDS: propofol 1,000 MG/100 ML INJ 34.8 MG IV (01:46)
[2019-07-05] MEDS: acetaminophen 325 mg Tablet 650 MG PO (02:15)
[2019-07-05 03:52] LABS: Alanine Aminotransferase 73 U/L (0-41); Albumin Level 2.5 g/dL (3.5-5.2); Alkaline Phosphatase 78 IU/L (40-130); Anion Gap 14.1 (5-19); Aspartate Amino Transferase 92 U/L (0-40); Blood Urea Nitrogen 28 mg/dL (8-23); Calcium 8.7 mg/Dl (8.8-10.2); Carbon Dioxide 29 mmol/L (22-29); Chloride 110 mmol/L (98-107); Globulin 4.1 g/dL (1.3-4.6); Glomerular Filtration Rate 114.3 mL/min (90-130); Glucose 143 mg/dL (74-106); Potassium 4.1 mmol/L (3.5-5.1); Sodium 149 mmol/L (136-145); Total Bilirubin 0.9 mg/dL (0.15-1.2); Total Protein 6.6 g/dL (6.6-8.7)
[2019-07-05] MEDS: FUROsemide 10 mg/mL SDV 10mL 60 MG IVP (04:01)
[2019-07-05 04:03] LABS: Basophils % 0.3 %; Eosinophils % 0.3 %; Hematocrit 37.9 % (42.0-52.0); Hemoglobin 11.5 g/dL (11.7-16.6); Lymphocytes # 1.7 10^3/uL (0.8-4.8); Lymphocytes % 18.3 %; Mean Corpuscular HGB Conc 30.3 g/dL (30.0-36.0); Mean Corpuscular Volume 95.7 fL (80-94); Mean Platelet Volume 10.5 fL (7.4-10.4); Monocytes # 0.7 10^3/uL (0.2-0.9); Monocytes % 7.4 %; Neutrophils # 6.6 10^3/uL (1.8-7.7); Neutrophils % 72.6 %; Nucleated Red Blood Cells % 0 %; Platelet Count 203 10^3/cmm (130-400); Red Blood Count 3.96 10^6/uL (4.1-5.3); Red Cell Distribution Width 14.6 % (12.1-15.1)
[2019-07-05] MEDS: propofol 1,000 MG/100 ML INJ 33 MG IV ×6 (04:45→21:48)
[2019-07-05 08:25] LABS: Oxygen Device VENT
[2019-07-05 08:33] LABS: Oxygen Device VENT
--- NOTE | 2019-07-05 09:05 | ECG_ITS ---
Measurements Intervals [place] Rate: 53 P: 70 DE: 178 QRS: 41 QRSD: 110 T: 124 QT: 477 QTc: 452 SINUS BRADYCARDIA LOW QRS VOLTAGE IN PRECORDIAL LEADS [QRS DEFLECTION < 1.0 mV IN CHEST LEADS] POSSIBLE ANTERIOR MYOCARDIAL INFARCTION [30 ms Q WAVE IN V3/V4, OR R < 0.2 mV IN V4], OF INDETERMINATE AGE Compared to ECG 06/27/2019 20:07:20 Low QRS voltage now present Sinus rhythm no longer present Indeterminate axis no longer present Myocardial infarct finding still present Electronically Signed On 07-05-2019 15:39:49 AIR BRAKE RIGGER by Simone Black M.D. [id number]
[2019-07-05 09:21] LABS: Oxygen Device VENT
[2019-07-05 09:25] LABS: Oxygen Device VENT
[2019-07-05 09:39] LABS: Oxygen Device VENT
[2019-07-05 09:57] LABS: ABG PCO2 42.6 mmHg (35-45); ABG PH Result 7.46 (7.35-7.45); Base Excess ABG 5.8 mmol/L (-2.0-2.0); Blood Gas Allen Test POS; HCO3 ABG 30.3 mmol/L (22-26); Oxygen Device VENT; PO2 ABG 81.5 mmHg (80.0-100.0)
[2019-07-05 11:16] LABS: Arterial Blood Gas Hematocrit 39.9 % (42-52); Blood Gas Sample Type ARTERIAL
[2019-07-05] MEDS: cefTRIAXone 2,000 MG in sodium chloride 0.9% (plus) 50 ML 100 MG IV (11:40)
[2019-07-05] MEDS: enoxaparin 40 mg/0.4 mL Syringe SUBCUT ×2 (11:41→21:47)
[2019-07-05] MEDS: enoxaparin 100 mg/mL Syringe SUBCUT ×2 (11:41→21:47)
[2019-07-05] MEDS: potassium chloride oral liq 20 mEq/15 mL UDC 40 MEQ OG-TUBE ×2 (11:42→18:39)
[2019-07-05] MEDS: predniSONE 20 mg Tablet 40 MG OG-TUBE (11:43)
[2019-07-05] MEDS: folic acid 1 mg Tablet PO (11:43)
[2019-07-05] MEDS: multivitamin therapeutic Tablet 1 TAB PO (11:43)
[2019-07-05] MEDS: sennosides-docusate Tablet 2 TAB OG-TUBE (11:44)
[2019-07-05] MEDS: thiamine 100 mg Tablet PO (11:44)
--- NOTE | 2019-07-05 14:49 | PC.CHAP ---
Pastoral Care Encounter/Spiritual Assessment Type of Contact [] Declined instrumentation designer visit [] Patient/Family/Request visit [] Outpatient visit [] Follow-up visit [] Physician referral [] Code/Alert [x] Routine visit [] Staff referral [] Actively dying [] Patient sleeping [] Family support [] [] Out of room [] Palliative care [] [] Receiving care in room [] Pre-surgical visit [] Trauma [] Long length of stay [x] ICU visit [] Other: Relational/Emotional Strength [] Patient feels connected with others/family/visitors/staff [] Distress [] Loneliness/isolation [] Abandonment Spirituality of Patient [] Person of Maryan [] Attends Quaker of their Maryan [x] Believes in Prayer [] Reads Bible or Yarsanism materials [] There are Spiritual issues to be addressed Retail Marketing Specialist Interventions [x] Prayer [] Active listening [] Non-anxious presence [x] Spiritual/emotional support [] Crisis/trauma care [] Spiritual counseling [] Bereavement support [] Provided bereavement packet [] Provided Bible/devotional materials [] Provided toy/stuffed animal, coloring book to patient or family member [x] Completed spiritual assessment [] Provided Communion [] Anointing/[place] [] Salvation [] Other: Impact on Illness or Injury [] Angry [] Fearful [x] Anxious [] Often cries [] Exhaustion [] Unable to work [] Unable to attend judaism [] Unable to walk/stand [] Unable to read [] Unable to drive [] Unable to eat/drink [] Unable to sleep [] Unable to be with family [] Other: Summary The patient was on life support, and semi awake. instrumentation designer asked patient if patient wanted the Retail Marketing Specialist to pray for patient,and patient nodded yes. Retail Marketing Specialist prayed for patient. Time spent with patient 8 min
[2019-07-05] MEDS: ciprofloxacin 0.3% Op Soln 2.5 mL Btl 1 DROP EYE-BOTH ×2 (18:17→21:47)
--- NOTE | 2019-07-05 18:58 | PC.NURSE ---
report rcvd at this time. pt sedated on vent size 8 et tube 25 @ lip secured. og in place secured to et tube vent settings cmv 14/500/40/8.0 . right picc c diprivan @ 40 mcg/kg/in . ns c 20 kcl at 40 cc/hr . pt supine at this time vss per cm. katie ellsworth.
--- NOTE | 2019-07-05 22:08 | P.PN_ITS ---
Subjective Subjective: Interval history: Continues to be febrile, t max 104F overnight. Bp stable. Blood cx from 06/30 remains negative. Picc line placed yeseterday. LE swelling unchanged over yesterday's exam. Scrotal edema and skin changes improving. Crusting noted over B/L eyelids with conjunctival redness. CT chest yesterday revealed PE. Started on full dose Lovenox. Medications: Reviewed: Yes Vitals/I&O/Wt Last Vital Signs Temp 99.9 F H 07/05/19 20:00 Pulse 68 07/05/19 20:28 Resp 22 H 07/05/19 21:47 BP 131/70 07/05/19 20:00 Pulse Ox 97 07/05/19 20:28 07/05/19 07/05/19 07/05/19 06:59 14:59 22:59 Intake Total 804 / 3551.05 1010.158 / 1010.158 246 / 1256.158 Output Total 3200 / 4025 0 / 0 900 / 900 Balance -2396 / -473.95 1010.158 / 1010.158 -654 / 356.158 Weight last 48 hrs Weight 135.284 kg Weight 137.348 kg Physical Exam Narrative: EXAM NARRATIVE: Intubated sedated however winces to pain and wakes up on calling name. CVS S1-S2 normal Respiratory system is clear to auscultation anteriorly bilaterally Extremities unchanged exam compared to yesterday Abdomen is soft distended no rebound tenderness or guarding. Urinary Catheter Management^: Jeffery: Cath Placed During This Visit: no Data Micro: Micro: Microbiology 06/30/19 16:29 Blood Culture - Fi nal Blood NO GROWTH AFTER 5 DAYS 06/30/19 16:29 Blood Culture - Fi nal Blood NO GROWTH AFTER 5 DAYS 07/05/19 09:23 Blood Culture - Pr eliminary Blood SPECIMEN [facility] 07/05/19 09:25 Blood Culture - Pr eliminary Blood SPECIMEN [facility] A&P Assessment and plan (1) Respiratory failure: Multifactorial. Likely secondary to fluid overload, sepsis, obesity hypoventilation and COPD. Echocardiogram largely normal. Still requiring a fair amount of FiO2. Continue diureses, however will reduce lasix to 30mg iv q12h given trend towards hypernatremia. requiring 45% fi02, completely awake otherwise, will try to wean sedation and give trial of spontaneous breathing. Plan to wean and extubate to BiPAP. Status: Acute Code(s): J96.90 - Respiratory failure, unspecified, unspecified whether with hypoxia or hypercapnia (2) Cellulitis: Placed on vancomycin, Zosyn initially, then changed to Primaxin and vancomycin on 06/29/18. Blood culture has returned with Klebsiella pneumoniae , murillo-S except for Amp/Unasyn. First documented negative cx from 06/30/19. Patient continues to be high grade fever in spite of appropriate antimicrobials. Possibilities include: - CT Abdomen performed ~1 week ago made note of possible complex renal cyst of unclear significance - On exam, patient had Scrotal cellulitis ? epididymoorchitis vs prostatitis contributing? - LE exam continues to improve, patient currently on broad spectrum coverage with Primaxin and Vancomycin, therefore doubt this is the reason he is still febrile. - ICU stay approaching ~1 week now. Will request fungal blood culture specifically to r/o fungemia. Possible portal of entry includes severe indigital skin breakdown on lower extremities. - ?Alcohol withdrawal contributing to ongoing fevers - Fever may also be contributed by PE, though given small embolism, does seem out of proportion - ? Possibility of drug fever from imipenem contributing? Since Klebsiella isolate appears pretty susceptible and no evidence of ESBL organisms found on cx, will narrow imipenem to Ceftriaxone. - If fever persists, will obtain rpt CT abdomen and CT head. - TTE did not show evidence of vegetations. Since blood cx cleared quickly and Klebsiella is not a typically associated organism, there is low suspicion for endocarditis. Defer TOBY. Status: Acute Code(s): L03.90 - Cellulitis, unspecified (3) Alcohol abuse: [facility] protocol. Using Precedex, Ativan in addition to propofol for sedation. Plan to wean propofol and try spontaneous breathing trials. Status: Acute Code(s): F10.10 - Alcohol abuse, uncomplicated (4) Hypokalemia: Status: Acute Code(s): E87.6 - Hypokalemia (5) Hypertension: Stable Status: Acute Code(s): I10 - Essential (primary) hypertension (6) Obesity, morbid: Status: Acute Code(s): E66.01 - Morbid (severe) obesity due to excess calories (7) Sepsis: IV antibiotics initiated. Culture grew Klebsiella. This is sensitive to Carbapenem antibiotics. Repeat cultures negative to date Status: Acute Code(s): A41.9 - Sepsis, unspecified organism (8) Thrombocytopenia: Improving thrombocytopenia Status: Acute Code(s): D69.6 - Thrombocytopenia, unspecified Attestations Medical Necessity Statement*: optimization of respiratory status, pending extubation Coding Level of Care Code Acute Cadd Drafter for Chg Fwd Diagnoses Respiratory failure J96.90 Cellulitis L03.90 Alcohol abuse F10.10 Hypokalemia E87.6 Hypertension I10 Obesity, morbid E66.01 Sepsis A41.9 Thrombocytopenia D69.6
[2019-07-06] VITALS (22 sets, daily range): BP systolic 132–152; BP diastolic 68–82; PULSE 66–78; RESP 14–28; TEMP 37.7–38; O2SAT 92–99; BMI 44.0
[2019-07-06] MEDS: propofol 1,000 MG/100 ML INJ 33 MG IV ×3 (00:31→06:27)
[2019-07-06] MEDS: ipratropium-albuterol 3 mL Neb INHALATION ×7 (03:48→16:23)
[2019-07-06] MEDS: FUROsemide 10 mg/mL SDV 4mL 30 MG IVP (08:10)
[2019-07-06] MEDS: cefTRIAXone 2,000 MG in sodium chloride 0.9% (plus) 50 ML 100 MG IV (08:10)
[2019-07-06] MEDS: folic acid 1 mg Tablet PO (08:11)
[2019-07-06] MEDS: predniSONE 20 mg Tablet 40 MG OG-TUBE (08:11)
[2019-07-06] MEDS: ciprofloxacin 0.3% Op Soln 2.5 mL Btl 1 DROP EYE-BOTH ×2 (08:11→13:57)
[2019-07-06] MEDS: multivitamin therapeutic Tablet 1 TAB PO (08:11)
[2019-07-06] MEDS: thiamine 100 mg Tablet PO (08:12)
--- NOTE | 2019-07-06 09:01 | CT_ITS ---
WS: [id number] CT scan of the head, 07/06/2019 Clinical Data: r/o cva Comparison: None. DLP: 896.[address] scans at [facility] use at least one of these dose optimization techniques: automat ed exposure control; mA and/or kV adjustment per patient size (includes targeted exams where dose is matched to clinical indication); or iterative reconstruction. Findings: The ventricular system is normal without shift. No recent infarct or hemorrhage is seen. There are no abnormal intracerebral masses. The cerebellum and brainstem are not remarkable. Bony windows of the skull and skull base show no fractures or erosions. The mastoid air cells, industrial design intern al auditory canals, sella turcica, intraorbital contents, and paranasal sinuses show only mucoperiost eal thickening of the sphenoid and maxillary sinuses. CT/CT head wo con* [id number] Impression: Negative CT scan of the head Chronic maxillary and sphenoid sinusitis.
--- NOTE | 2019-07-06 09:01 | CT_ITS ---
WS: [id number] CT scan of the abdomen and pelvis without Oral and with IV contrast. Additional two-dimensional radha nal and sagittal reconstruction was performed. 07/06/2019 Clinical Data: f/up renal cyst mentioned on previous CT Comparison: CT abdomen and pelvis, 06/29/2019.. DLP: 1864.[address] scans at [facility] use at least one of these dose optimization techniques: automat ed exposure control; mA and/or kV adjustment per patient size (includes targeted exams where dose is matched to clinical indication); or iterative reconstruction. Findings: The lower lungs show improvement in the basilar consolidation. There is still a nasogastric tube in t he esophagus and stomach. The liver, gallbladder, spleen, adrenal glands and pancreas are normal. The right kidney shows a low density cyst measuring 2.97 cm in greatest dimension. There is also a sm all cyst on the right lateral inferior cortical surface. The left kidney is unremarkable. No abnormal masses, hydronephrosis or renal calculi are seen. The abdominal aorta is normal in size with calcification in the wall.. No appendicitis or diverticulitis is seen. No abdominal abscess, adenopathy, ascites, mass, obstructi on or ileus is seen. The bladder is unremarkable. No inguinal hernia is seen. There are lymph nodes a djacent to both pelvic sidewalls. There is a probe in the rectum. 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 CT/CT abdomen pelvis w con* [id number] Impression: 1. Probable right renal cyst. 2. Negative for acute intra-abdominal or pelvic abnormalities.
--- NOTE | 2019-07-06 09:22 | US_ITS ---
WS: [id number] Scrotal and testicular ultrasound, 07/06/2019 Clinical Data: ?epididymoorchitis ?prostatitis Comparison: None. Findings: The right testes measures 2.67 cm x 2.7 cm x 2.83 cm. The left testes measures 2.66 cm x 4.18 cm x 1.9 cm. There is normal bilateral blood flow with no evidence of orchitis or torsion. No masses or abnormal c alcifications are noted. Epididymides show normal blood flow with a small incidental right epididymal cyst. There is a right spermatocele and bilateral hydroceles. Scrotal wall is minimally thickened. US/US scrotum [id number] Impression: 1. Negative for orchitis or epididymitis. 2. Bilateral hydroceles and right spermatocele.
[2019-07-06 09:34] LABS: Basophils % 0.4 %; Eosinophils # 0.1 10^3/uL (0.0-0.8); Eosinophils % 0.5 %; Hematocrit 41.9 % (42.0-52.0); Lymphocytes # 1.2 10^3/uL (0.8-4.8); Lymphocytes % 11.1 %; Mean Corpuscular Hemoglobin 30.3 pg (28.0-34.0); Mean Corpuscular Volume 97.7 fL (80-94); Mean Platelet Volume 9.9 fL (7.4-10.4); Monocytes # 0.8 10^3/uL (0.2-0.9); Neutrophils # 8.7 10^3/uL (1.8-7.7); Neutrophils % 80.1 %; Nucleated Red Blood Cells % 0 %; Platelet Count 331 10^3/cmm (130-400); Red Blood Count 4.29 10^6/uL (4.1-5.3); Red Cell Distribution Width 14.6 % (12.1-15.1); White Blood Count 10.9 10^3/uL (4.0-10.0)
[2019-07-06] MEDS: fentaNYL 50 mcg/mL INJ 2mL 25 MCG IVP (09:44)
[2019-07-06 09:46] LABS: Alanine Aminotransferase 87 U/L (0-41); Albumin Level 2.8 g/dL (3.5-5.2); Alkaline Phosphatase 88 IU/L (40-130); Anion Gap 12.7 (5-19); Aspartate Amino Transferase 77 U/L (0-40); Blood Urea Nitrogen 25 mg/dL (8-23); Calcium 9.1 mg/Dl (8.8-10.2); Carbon Dioxide 28 mmol/L (22-29); Chloride 110 mmol/L (98-107); Glomerular Filtration Rate 168.5 mL/min (90-130); Glucose 151 mg/dL (74-106); Magnesium 2.5 mg/dL (1.7-2.3); Potassium 3.7 mmol/L (3.5-5.1); Sodium 147 mmol/L (136-145); Total Bilirubin 1.1 mg/dL (0.15-1.2); Total Protein 6.8 g/dL (6.6-8.7)
[2019-07-06] MEDS: iohexol 300 mg/mL 100 mL Btl IV (10:30)
[2019-07-06] MEDS: propofol 1,000 MG/100 ML INJ 16.2 MG IV ×3 (10:48→14:43)
[2019-07-06] MEDS: potassium chloride oral liq 20 mEq/15 mL UDC 40 MEQ OG-TUBE (11:50)
[2019-07-06] MEDS: enoxaparin 100 mg/mL Syringe SUBCUT (11:51)
--- NOTE | 2019-07-06 15:00 | PC.NURSE ---
[facility] called and stated they would accept patient. Attempted to call report to Sophia Quiles RN at this time. Phone on receiving end not working. Faby notified.
--- NOTE | 2019-07-06 15:09 | PC.NURSE ---
Patients son, Ben Gates, called for right to transfer. This nurse and Latricia Elkins RN read back telephone order to confirm agreement to transfer.
--- NOTE | 2019-07-06 15:50 | PC.NURSE ---
Patient report called to Sophia Quiles RN at this time. Patient transport notified immediately after.
[2019-07-06] MEDS: propofol 1,000 MG/100 ML INJ 48.7 MG IV ×2 (17:06→17:20)
--- NOTE | 2019-07-06 18:07 | PC.NURSE ---
[facility] on unit at this time. Patient transferred to [facility] via pull sheet. Patient placed on ambulance ventilator. Additional bottle of propofol sent with ambulance crew, as [place] is a four hour trip. Fentanyl drip also released to wood products manufacturer to be sent with patient.
--- NOTE | 2019-07-07 19:42 | P.TS_ITS ---
Transfer Summary Providers Date of Admission: 06/27/19 20:30 Attending Provider at Admission: Uriel Pascual MD Attending Provider at Transfer: Pamela Ray MD Primary Care Provider: KAYLAN Bradley Anticipated Date of Transfer: Anticipated date of transfer: 07/07/19 Receiving Facility & Provider: Receiving Provider: Dr. Clarke[] Receiving facility: [] Diagnoses at Discharge Discharge Diagnosis (1) Respiratory failure: Status: Acute (2) Cellulitis: Status: Acute (3) Alcohol abuse: Status: Acute (4) Hypokalemia: Status: Acute (5) Hypertension: Status: Acute (6) Obesity, morbid: Status: Acute (7) Sepsis: Status: Acute (8) Thrombocytopenia: Status: Acute Reason for Visit Reason for Visit: Reason For Visit: Cellulitis Hospital Course Discharge Summary: Patient is a 62 morbidly obese with a history of COPD, excessive alcohol consumption bilateral lower extremity swelling and extensive dermatitis changes who used to be seen at a wound care with Dr. Houston for lower extremity cellulitis and was recommended debridement however did not follow-up. He was brought to the hospital on June 27 by his family who noted him to be getting worse, being grossly noncompliant with his medications, leading to sedentary lifestyle, and noticed that his legs have become extremely foul-smelling tender and had purulent drainage. Family stated that on most days he usually stays in the house and consumes alcohol. He has not been ambulating within the house recently. Upon presentation to the ER he was found to have alcohol withdrawal and was intubated soon after for airway protection. There was also a question of his having a COPD exacerbation. He was admitted to the ICU intubated. Since then it has been difficult to extubate him because of high FiO2 requirements and high PEEP requirements likely contributed by a combination of pulmonary edema, COPD underlying and morbid obesity. His ICU course remained notable for Klebsiella pneumoniae bacteremia which was recovered from blood cultures on 06/27 first documented clear cultures were on J anuary 3.. There is no blood culture in between. His urine culture also returned with Klebsiella pneumonia. His UA was positive. Prior to receiving the susceptibility data, patient had been on empiric Zosyn but with recovery of blood cultures was switched to Primaxin. Of note on exam he had extreme scrotal swelling and appeared to have scrotal cellulitis. An ultrasound of the scrotum performed later during the course of admission closer to discharge did not show any evidence of epididymitis or orchitis or prostate abscess. CT of the abdomen was found only with a right renal cyst but no other acute intra- abdominal process. Echocardiogram transthoracic is without any evidence of valvular abnormalities. His lower extremity cellulitis and scrotal cellulitis improved with antibiotic treatment. Almost part of his hospital admission he remained on Primaxin and vancomycin. In spite of appropriate antimicrobial therapy, resolution of leukocytosis and ruling out any persisting unaddressed sources of infection patient continued to have fevers up to 103 to 104 ?F. This was thought in part related to alcohol withdrawal for which he was also receiving treatment. Due to the possibility of drug related fevers caused by Primaxin, he was switched to ceftriaxone in keeping with susceptibility data for Klebsiella pneumonia (this was resistant only to ampicillin and unasyn). Since switching the antibiotic, his fever curve improved and at the time of discharge his T-max is at 100.2 Fahrenheit. He is being discharged on ceftriaxone and vancomycin recommendation for ceftriaxone is to continue from 14 days of clearance of blood culture ( count June 30 as day 1). If he is still febrile will consider continuing./Extending duration of antibiotics to 4 weeks to cover for possible prostatitis. Vancomycin may be discontinued once cellulitis is improving. He was treated for alcohol withdrawal by Precedex drip while intubated however he developed a prolonged QTc interval as a result of this. This was discontinued and he was placed on as needed Ativan. Other notable events included discovery of a left-sided PE, for which he was placed on full dose Lovenox. This may have been contributing to his fevers as well. His lower extremities did undergo a Doppler with no evidence of DVT in the proximal legs. Distal calf splint not be examined by a Doppler because of extremely thick skin. Physical Exam Narrative: EXAM NARRATIVE: General intubated, sedated this morning, opens eyes when off sedation. CVS S1-S2 is normal Respiratory system is clear to auscultation anteriorly Lower extremity with gross scaling and stasis changes improving since admission scrotal edema significantly improved compared to admission. Urinary Catheter Management^: Jeffery: Cath Placed During This Visit: no TS Data Data Completed and Pending: Completed Studies During Hospitalization Category Date Time Status CT abdomen pelvis w con* [id number] Rout ine Cat Scan 07/06/19 09:[address] angio chest PE protcl [id number] Rout ine Cat Scan 07/04/19 15:[address] head wo con* 7 [id number] Routine Cat Scan 07/06/19 09:[address] kidney stone 7 [id number] Routine Cat Scan 06/28/19 17:42 Completed XR chest 1V judy ble [id number] Routine Exams 06/29/19 04:00 Completed XR chest 1V judy ble [id number] Routine Exams 06/30/19 09:00 Completed XR chest 1V judy ble [id number] Routine Exams 07/01/19 07:52 Completed XR chest 1V judy ble [id number] Routine Exams 07/02/19 06:00 Completed XR chest 1V judy ble [id number] Routine Exams 07/03/19 08:27 Completed XR chest 1V judy ble [id number] Stat Exams 06/28/19 04:17 Completed XR chest 1V judy ble [id number] Stat Exams 07/04/19 12:28 Completed CV echo complete* [id number] Routine Ultrasound 06/29/19 07:00 [place] [id number] Routin e Ultrasound 07/02/19 07:00 Completed US scrotum [id number] Routine Ultrasound 07/06/19 09:22 Completed Pending at discharge Category Date Time Status Blood Culture Sta t Lab 07/05/19 09:23 Results Vitals: Last Vital Signs Temp 100.2 F H 07/06/19 16:00 Pulse 76 07/06/19 16:00 Resp 28 H 07/06/19 16:05 BP 140/81 07/06/19 16:00 Pulse Ox 93 07/06/19 16:05 Discharge Plan Discharge Patient Disposition: [facility] Condition: Stable Discharge Orders: Transfer Out of Facility (Order); Ordered 07/05/19 Ordered By: Pamela Ray Discharge Date/Time: 07/06/19 17:15 Transfer Attestations Time Spent in Transfer Care*: critical care time 30 - 74 mins Quality Metrics Clinical Quality Measures: During this hospital stay, did patient experience: None Coding Level of Care Code Acute International [employer]ant [employer] Fwd Diagnoses Respiratory failure J96.90 Cellulitis L03.90 Alcohol abuse F10.10 Hypokalemia E87.6 Hypertension I10 Obesity, morbid E66.01 Sepsis A41.9 Thrombocytopenia D69.6
== END 2019-07-06 17:15 | DRG 870 ==
LOC: MEDSURG 21:20 → ICU 21:38
PROVIDERS: Internal Medicine; Admitting Provider Internal Medicine; Emergency Provider Emergency Medicine; Family Provider Nurse Practitioner Family; PCP Nurse Practitioner Family; Visit Provider Student in an Organized Health Care Education/Training Program
DX: A41.9 Sepsis, unspecified organism (principal); J96.90 Respiratory failure, unspecified, unspecified whether with hypoxia or hypercapnia; L03.90 Cellulitis, unspecified; Z68.41 Body mass index [BMI] 40.0-44.9, adult; F10.10 Alcohol abuse, uncomplicated; E87.6 Hypokalemia; I10 Essential (primary) hypertension; D69.6 Thrombocytopenia, unspecified; B96.1 Klebsiella pneumoniae [K. pneumoniae] as the cause of diseases classified elsewhere
CPT/HCPCS: 36415; 36416; 36592; 36600; 51702; 70450; 71045; 71275; 73590; 73620; 74176; 74177; 76870; 80048; 80053; 80202; 80307; 81001; 82803; 82810; 82962; 83605; 83735; 83880; 84100; 85025; 87040; 87070; 87077; 87086; 87186; 87205; 87804; 93005; 93306; 93970; 94002; 94003; 94640; 94660; 94799; 96361; 96365; 96372; 96374; 96375; 97163; 97530; 99284; A4570; C1751; J0330; J0696; J0743; J1170; J1650; J1940; J2001; J2060; J2405; J2543; J2704; J3010; J3370; J3411; J3480; J3490; J7040; J7050; J7512; Q9967

== ENCOUNTER 2019-07-28 12:56 | Outpatient (RCR) | payer BC, SELFPAY | END 2019-07-28 23:59 | disposition home or self-care (01) | LOC: WOUND 12:56 | PROVIDERS: Family Provider Nurse Practitioner Family; Visit Provider Surgery | DX: I96 Gangrene, not elsewhere classified (principal); L89.323 Pressure ulcer of left buttock, stage 3 | CPT/HCPCS: 11042; 11045; 87070; 87077; 87176; 87186; 87205; 99214; G0463 ==

== ENCOUNTER 2019-07-28 16:01 | Inpatient (IN) | payer BC, SELFPAY ==
[2019-07-28 16:21] VITALS: BMI 39.4
--- NOTE | 2019-07-28 17:31 | USCV_ITS ---
Satish Jones Age: 64 Gender: M : 1955 Exam Date: 07/28/2019 20:12 Ordering Phys: Chet Potts MD Technologist: Shila Marie [place] [facility] [facility] [place]: SWOLLEN LEGS HISTORY: Lower extremity swelling. PROCEDURES: The venous duplex Doppler examination of both lower extremities was performed in the standard fashion. The following venous structures were evaluated: common femoral vein, profunda vein, proximal portion of the greater saphenous vein, superficial femoral vein, and the popliteal vein. In addition, the posterior tibial and peroneal trunk were evaluated. Serial compression, augmentation maneuvers, and spectral Doppler flow evaluation were performed. FINDINGS: Limited study because of Pt condition. No DVT seen in any vessel examined Echolucent areas were noted in the subcutaneous tissue bilaterally CONCLUSIONS No evidence of DVT in the above-mentioned identifiable veins. Features of peripheral edema/fluid retention Dr Yeimy Mike MD FAC (Electronically Signed) Final Date: 29 July 2019 13:27 S
[2019-07-28 18:03] VITALS: PULSE 74; RESP 18; O2SAT 96
[2019-07-28 18:23] LABS: Basophils % 0.5 %; Eosinophils # 0.3 10^3/uL (0.0-0.8); Eosinophils % 3.6 %; Hematocrit 39.3 % (42.0-52.0); Hemoglobin 12.8 g/dL (11.7-16.6); Lymphocytes # 1.6 10^3/uL (0.8-4.8); Lymphocytes % 21.7 %; Mean Corpuscular HGB Conc 32.6 g/dL (30.0-36.0); Mean Corpuscular Hemoglobin 29.4 pg (28.0-34.0); Mean Corpuscular Volume 90.1 fL (80-94); Mean Platelet Volume 8.7 fL (7.4-10.4); Monocytes # 0.8 10^3/uL (0.2-0.9); Monocytes % 10.1 %; Neutrophils # 4.8 10^3/uL (1.8-7.7); Neutrophils % 63.2 %; Nucleated Red Blood Cells % 0 %; Platelet Count 331 10^3/cmm (130-400); Red Blood Count 4.36 10^6/uL (4.1-5.3); Red Cell Distribution Width 13.1 % (12.1-15.1); White Blood Count 7.5 10^3/uL (4.0-10.0)
[2019-07-28 18:51] LABS: Procalcitonin 0.06 ng/mL (0-0.5)
[2019-07-28 18:57] LABS: Add Urine Microscopic? NO
[2019-07-28 19:06] LABS: Alcohol Level < 10 mg/dL (0-10)
[2019-07-28 19:42] VITALS: BP 127/66; PULSE 58; RESP 19; TEMP 37.1; O2SAT 97
[2019-07-28 19:44] LABS: Bilirubin Urine 1+ (NEGATIVE); Blood Urine Neg (Negative); Glucose Urine UA Norm (Normal); Ketones Urine Negative (Negative); Leukocyte Esterase Urine Negative (Negative); Nitrate Urine Negative (Negative); Protein Urine Neg (Negative); Urine Appearance Clear (CLEAR); Urine Color Yellow (Yellow); Urobilinogen Urine Norm (Negative); pH Urine 7 (5-7)
[2019-07-28] MEDS: LORazepam 2 mg Tablet PO (20:01)
[2019-07-28] MEDS: heparin 5,000 unit/mL INJ 1 mL 5000 UNIT SUBCUT (20:02)
[2019-07-28] MEDS: cefTRIAXone 1,000 MG in sodium chloride 0.9% (plus) 50 ML 100 MG IV (20:04)
[2019-07-28] MEDS: sodium chloride 0.9% 1,000 ML 75 ML IV (20:04)
[2019-07-28 20:47] VITALS: PULSE 48; RESP 18; O2SAT 97
[2019-07-28] MEDS: ipratropium-albuterol 3 mL Neb INHALATION (20:47)
[2019-07-28 20:52] VITALS: PULSE 49; O2SAT 96
[2019-07-28 21:08] LABS: Glomerular Filtration Rate 114.3 mL/min (90-130)
--- NOTE | 2019-07-28 21:28 | PHA.FALL ---
Pharmacokinetic dosing service Date: Time: Objective: Patient: LISA WIN Floor: 273-1 Age: 64 yo Serum creatinine: 0.7 mg/dL Height: 69.0 Inches Weight (kg): 121.109 Diagnosis: Relevant medical/social history: Cultures and sensitivities: Other labs: Assessment: IBW (kg): 70.70 Dosing wt(kg): 121.109 Estimated Creatinine clearance (ml/min): 109.4 CRCL method: Cockcroft and Gault using ibw(default). Drug selected: Vancomycin Loading dose (mg): 0 Vd (liters): 109.0 (factor used: 0.9 L/kg) Joesph (hr-1): 0.095 Half life (hrs): 7.30 Recommended dose: 2000 mg Interval: 12 hrs Infusion time (hrs): 1.5 Predicted peak (mcg/mL): 25.1 Predicted trough (mcg/mL): 9.26 Total body weight is being used for vancomycin dosing. Renal function is stable [ ] /unstable [ ] Recommendations: Give Vancomycin 2000 mg q 12 hrs with an expected Cpeak of 25.1 mcg/ml and an expected Ctrough of 9.26 mcg/ml Renal dosing of other antibiotics (review renal dosing of other medications and list guidelines here): Thank you for the consult, will continue to follow. Signature: Yuly Chaudhary
--- NOTE | 2019-07-28 22:30 | P.HP_ITS ---
Providers/Chief Complaint Admitting Physician: Nikita Rodgers MD Chief Complaint: LEFT GLUTAL ULCER History of Present Illness Satish Jones is a 64 year old male with a history of COPD, excessive alcohol consumption, bilateral lower extremity swelling and extensive dermatitis changes from lymphedema. He was recently admitted between June 27-July 07 after being brought by his family who noted him to be getting worse, being grossly noncompliant with his medications, leading to sedentary lifestyle, and noticed that his legs have become extremely foul-smelling tender and had purulent drainage. Upon presentation to the ER he was found to have alcohol withdrawal and was intubated soon after for airway protection. There was also a question of his having a COPD exacerbation. He was admitted to the ICU intubated. ICU course was notable for difficult extubation contributed by a combination of pulmonary edema, COPD underlying and morbid obesity. He also developed Klebsiella pneumoniae bacteremia likely from a urinary source which was recovered from blood cultures on 06/27 first documented clear cultures were on June 30, scrotal cellulitis, no evidence of epididymitis or orchitis or prostate abscess. CT of the abdomen was found only with a right renal cyst but no other acute intra-abdominal process. Echocardiogram transthoracic is without any evidence of valvular abnormalities. His lower extremity cellulitis and scrotal cellulitis improved with antibiotic treatment. In spite of appropriate antimicrobial therapy, resolution of leukocytosis and ruling out any persisting unaddressed sources of infection patient continued to have fevers up to 103 to 104 ?F. This was thought in part related to alcohol withdrawal for which he was also receiving treatment. Due to the possibility of drug related fevers caused by Primaxin, he was switched to ceftriaxone in keeping with susceptibility data for Klebsiella pneumonia (this was resistant only to ampicillin and unasyn). Since switching the antibiotic, his fever curve improved. Other notable events included discovery of a left-sided PE, for which he was placed on full dose Lovenox. This may have been contributing to his fevers as well. His lower extremities did undergo a Doppler with no evidence of DVT in the proximal legs. Distal calf could not be examined by a Doppler because of extremely thick skin. He was eventually discharged to [facility] in [facility], still intubated. \ He reports being discharged one week ago on oral clindamycin. During his stay in [place], he developed a sacral pressure ulcer which has been worsening and draining excessively. He went to wound care to see Dr. Douglas today , and was sent for admission for need of debridement for this ulcer. Denies any foul smell. Pain+ over site. Denies any fever at home. Home medications note Clindamycin. I do not see any anticoagulants on the list. Review of Systems Const: Denies: fever, chills, body aches, change in appetite, malaise, night s weats, diaphoresis, change in sleep pattern, daytime sleepiness or snoring Eyes: Denies: change in vision, blurry vision, photophobia, eye discomfort or eye discharge ENMT: Denies: throat pain, enlarged tonsils, hoarseness, mouth pain, oral sores/lesions, dry mouth, tinnitus, nasal congestion or post nasal drip Card: Denies: chest pain, palpitations, irregular heart rhythm, edema, swelling of feet/ankles, lightheadedness, syncope, pre-syncope, shortness of breath on exertion, shortness of breath when lying down, leg pain with exertion or bluish discoloration of hands/feet Resp: Denies: shortness of breath, productive cough, non-productive cough, wheezing, stridor, pain on inspiration, change in phlegm color, coughing up blood or chest congestion GI: Denies: abdominal pain, nausea, vomiting, vomiting blood, coffee grounds in vomit, difficulty swallowing, heartburn/indigestion, diarrhea, constipation, bloating, cramping, change in bowel habits, painful bowel movements, blood in stool or black tarry stool : Denies: flank pain, difficulty urinating, painful urination, urinary frequency, urinary urgency, urinary hesitancy, urinary dribbling, difficulty st arting urination, change in urine stream, nighttime urination or blood in urine Musc: Denies: neck pain, back pain, extremity pain, joint pain, joint swelling, redness, joint stiffness or limited range of motion Neuro: Denies: headache, numbness in extremities, weakness in extremities, asha nges in sensation, lack of coordination, difficulty walking, frequent falls, dizziness, vertigo, confusion, slurred speech, difficulty communicating thoughts or seizure-like activity Psych: Denies: anxiety, depression, mood swings, panic attacks, hopelessness or irritability Endo: Denies: excessive urination, excessive thirst, tired all the time, cold intolerance, excessive sweating, flushing or heat intolerance Kota/Lymph: Denies: easy bruising or easy bleeding All/Imm: Denies: tongue swelling, facial swelling or acute wheezing Medications/Allergies Home Medications Medication Instructions Recorded Confirmed Last Taken Type amlodipine 10 mg PO DAILY 07/28/19 07/28/19 07/28/19 History clindamycin HCl 300 mg PO QID 07/28/19 07/28/19 07/28/19 History furosemide [Lasix] 40 mg PO DAILY 07/28/19 07/28/19 07/28/19 History Allergies Allergy/AdvReac Type Severity Reaction Status Date / Time No Known Allergies Allergy Verified 07/28/19 16:52 Vitals/I&O/Wt Last Vital Signs Temp 98.8 F 07/28/19 19:42 Pulse 49 L 07/28/19 20:52 Resp 18 07/28/19 20:47 BP 127/66 07/28/19 19:42 Pulse Ox 96 07/28/19 20:52 07/28/19 07/28/19 07/28/19 06:59 14:59 22:59 Output Total Balance -10 / -10 Weight last 48 hrs Weight 121.109 kg Physical Exam Narrative: EXAM NARRATIVE: General: No acute distress, AO x3 HEENT: PERRLA, pupils bilaterally equal and reactive Chest: Normal vesicular breath sounds, no added sounds, equal good air entry bilaterally CVS: S1-S2 regular, no murmurs, no tachycardia, no gallops, no rubs Abdomen: Soft, nontender, no organomegaly, bowel sounds present Neuro: No focal deficits, no facial deformity, AO x3, power 5/5 in all limbs EXT: sacral ulcer +. There is a central deep ulcer approx 2x3cm with necrotic borders that is currently packed with surgical dressing. Adjacent to this on the R side is a superficial area of ulceration. Data : 07/29/19 05:48 07/29/19 05:48 Micro: Microbiology 07/28/19 18:12 Blood Culture - Preliminary Blood SPECIMEN COLLECTED 07/28/19 17:59 Blood Culture - Preliminary Blood SPECIMEN COLLECTED A&P Assessment and plan (1) Sacral pressure ulcer: Status: Acute Code(s): L89.159 - Pressure ulcer of sacral region, unspecified stage (2) Obesity, morbid: Status: Acute Code(s): E66.01 - Morbid (severe) obesity due to excess calories (3) Lymphedema: Status: Acute Code(s): I89.0 - Lymphedema, not elsewhere classified (4) Hypertension: Status: Acute Code(s): I10 - Essential (primary) hypertension (5) Alcohol abuse: Status: Acute Code(s): F10.10 - Alcohol abuse, uncomplicated (6) Pulmonary embolism: Status: Acute Code(s): I26.99 - Other pulmonary embolism without acute cor pulmonale Additional A&P Information Admit to medsur floor No current fever or leukocytosis start empiric antimicrobial treatment with Ceftriaxone and vancomycin Percocet prn for pain control Surgical consult with Dr. Ward for debridement NPO after midnight for possible procdures Will need to call pharmacy in morning to verify if he is on any anticoagulation DVT ppx: heparin Full code Attestations Medical Necessity Statement*: management of sacral pressure injury with excessive discharge Coding Level of Care Code Acute Facility Rehab Director for [facility] Fwd Diagnoses Sacral pressure ulcer L89.159 Obesity, morbid E66.01 Lymphedema I89.0 Hypertension I10 Alcohol abuse F10.10 Pulmonary embolism I26.99
[2019-07-28 23:44] VITALS: BP 146/77; PULSE 69; RESP 19; TEMP 36.4; O2SAT 95
[2019-07-28 23:44] LABS: Alanine Aminotransferase 16 U/L (0-41); Albumin Level 3.7 g/dL (3.5-5.2); Alkaline Phosphatase 106 IU/L (40-130); Anion Gap 16.3 (5-19); Aspartate Amino Transferase 15 U/L (0-40); Blood Urea Nitrogen 9 mg/dL (8-23); Calcium 9.3 mg/dL (8.5-10.5); Carbon Dioxide 30 mmol/L (22-29); Chloride 97 mmol/L (98-107); Glomerular Filtration Rate 136.5 mL/min (90-130); Glucose 103 mg/dL (74-106); Potassium 3.3 mmol/L (3.5-5.1); Sodium 140 mmol/L (136-145); Total Bilirubin 0.5 mg/dL (0.15-1.2); Total Protein 6.7 g/dL (6.6-8.7)
[2019-07-29] VITALS (16 sets, daily range): BP systolic 88–148; BP diastolic 43–80; PULSE 65–99; RESP 16–19; TEMP 36.4–37.4; O2SAT 93–100
[2019-07-29] MEDS: sodium chlor 0.9% + KCl 20 mEq 20 MEQ/1,000 ML BAG 75 MEQ IV ×3 (01:03→21:04)
[2019-07-29] MEDS: ipratropium-albuterol 3 mL Neb INHALATION ×4 (03:38→20:46)
--- NOTE | 2019-07-29 05:31 | PC.NURSE ---
Pt assessed and noted to have ringworm type rash on groin - predominantly, spread to legs, trunk, arms, and back. Also noted excoriation to bilateral groin. Dr notified and up to floor to assess, confirmed and meds ordered. Sacral wound assessed and dressing changed from original dressing since soiled in drainage fluid and urine. Changed two additional times d/t copious amounts of serosanguineous drainage which soaked through and onto jakob. (packing not removed) Foul smell also noted.
[2019-07-29 06:20] LABS: Basophils % 0.4 %; Eosinophils # 0.3 10^3/uL (0.0-0.8); Eosinophils % 4.1 %; Hematocrit 36.2 % (42.0-52.0); Hemoglobin 11.7 g/dL (11.7-16.6); Lymphocytes # 1.5 10^3/uL (0.8-4.8); Lymphocytes % 22.2 %; Mean Corpuscular HGB Conc 32.3 g/dL (30.0-36.0); Mean Corpuscular Hemoglobin 28.7 pg (28.0-34.0); Mean Corpuscular Volume 88.9 fL (80-94); Mean Platelet Volume 8.8 fL (7.4-10.4); Monocytes # 0.8 10^3/uL (0.2-0.9); Monocytes % 11.7 %; Neutrophils # 4.1 10^3/uL (1.8-7.7); Neutrophils % 60.3 %; Nucleated Red Blood Cells % 0 %; Platelet Count 350 10^3/cmm (130-400); Red Blood Count 4.07 10^6/uL (4.1-5.3); Red Cell Distribution Width 13.2 % (12.1-15.1); White Blood Count 6.8 10^3/uL (4.0-10.0)
[2019-07-29] MEDS: nystatin powder 15 gm Btl 1 APPLIC TOPICAL (06:30)
[2019-07-29] MEDS: terbinafine 1% Cream 15 gm 1 APPLIC TOPICAL ×3 (06:31→16:45)
[2019-07-29 06:43] LABS: Estmated Average Glucose 126
[2019-07-29 06:49] LABS: Alanine Aminotransferase 14 U/L (0-41); Albumin Level 3.4 g/dL (3.5-5.2); Alkaline Phosphatase 97 IU/L (40-130); Anion Gap 14.8 (5-19); Aspartate Amino Transferase 13 U/L (0-40); Blood Urea Nitrogen 10 mg/dL (8-23); Calcium 9.2 mg/dL (8.5-10.5); Carbon Dioxide 26 mmol/L (22-29); Chloride 100 mmol/L (98-107); Globulin 3.4 g/dL (1.3-4.6); Glomerular Filtration Rate 114.3 mL/min (90-130); Glucose 136 mg/dL (74-106); Sodium 138 mmol/L (136-145); Total Bilirubin 0.6 mg/dL (0.15-1.2); Total Protein 6.8 g/dL (6.6-8.7)
[2019-07-29 06:58] LABS: Potassium 2.8 mmol/L (3.5-5.1)
[2019-07-29] MEDS: cefTRIAXone 1,000 MG in sodium chloride 0.9% (plus) 50 ML 100 MG IV ×2 (09:11→16:45)
[2019-07-29] MEDS: potassium chloride premix 40 MEQ/100 ML PREMIX 25 MEQ IV ×2 (09:23→15:10)
--- NOTE | 2019-07-29 09:59 | P.ANESASSM_ITS ---
Pre-Anesthetic Assessment Pre-Anesthetic Assessment: Height/Weight: Height 1.75 m Weight 122.101 kg Temp Pulse Resp BP Pulse Ox 97.9 F 79 16 126/76 95 07/29/19 07:44 07/29/19 08:34 07/29/19 08:34 07/29/19 07:44 07/29/19 08:34 Preop Diagnosis: sacral wound Familial anesthetic complications: None Was Beta Meggan taken within 24 hours: N/A Last intake: NPO > 8 hrs Social: Social History: Alcohol (alcoholic - ciwa protocol) and Tobacco Packs per day: 0.5 ppd Exam: Pre-Anes Outpt Exam: alert, oriented x 3, clear to auscultation bilaterally and regular rate & rhythm Airway: Cervical ROM: WNL MP: 3 Additional comments: missing Pulmonary: Pulmonary: COPD and SOB Comments: intubated for long period of time last month CV/HEM: CV/HEM: HTN : : None reported Hepatic: Hepatic: None reported GI: GI: None reported Metabolic: Metabolic: Morbid obesity Musc/skel: Comments: lymphedema Neuropsych: Neuropsych: Seizure Comments: unsure if he's had seizures Anesthetic Plan: ASA status: IV Anesthesia: MAC Risk of > 500 ml blood loss (7ml/kg in children): No Meds/Allergies Current Medications: Current Medications Generic Name Dose Route Start Last Admin Trade Name Freq PRN Reason Stop Dose Admin Albuterol/Ipratrop ium 3 ml 07/28/19 21:00 07/29/19 08:27 Duoneb INHALATION 3 ml Q6H.RESPIRATORY S CH Administration Heparin Sodium (Be ef Lung) 5,000 unit 07/28/19 19:30 07/28/19 20:02 Heparin SUBCUT 5,000 unit Q12H MAYNOR Administration Ceftriaxone Sodium 1,000 mg/ 50 mls @ 100 mls/ hr 07/28/19 18:00 07/29/19 09:11 Sodium Chloride IV 100 mls/hr Q12H MAYNOR Administration Protocol Vancomycin HCl 2,0 00 mg/ 500 mls @ 250 mls /hr 07/28/19 22:00 07/29/19 01:03 Sodium Chloride IV 250 mls/hr Q12H MAYNOR Administration Potassium Chloride /Sodium Chloride 20 meq in 1,000 m ls @ 75 mls/hr 07/28/19 23:15 07/29/19 01:03 Sodium Chlor 0.9 % + Kcl 20 Meq IV 75 mls/hr .[id number] MAYNOR Administration Potassium Chloride 40 meq in 100 mls @ 25 mls/hr 07/29/19 08:37 07/29/19 09:23 K-Juan IV 07/29/19 12:36 25 mls/hr ONCE ONE Administration Lorazepam 2 mg 07/28/19 17:33 07/28/19 20:01 Ativan PO 2 mg PROTOCOL PRN Administration WITHDRAWAL Protocol Terbinafine HCl 1 applic 07/29/19 04:00 07/29/19 06:31 Lamisil TOPICAL 1 applic BID MAYNOR Administration PFSH Anesthesia PFSH: Medical History (Updated 07/29/19 @ 08:50 by Tommie Ward MD) Prostate cancer (Acute) Pulmonary embolism (Acute) Surgical History (Updated 07/29/19 @ 08:50 by Tommie Ward MD) H/O prostatectomy (Acute) History of umbilical hernia repair (Acute) Status post colonoscopy (Acute) Data Anesthesia CBC & Chem 7: 07/29/19 05:48 07/29/19 05:48 Other Labs: Laboratory Results - last 48 hr 07/28/19 07/28/19 07/28/19 17:53 17:59 17:59 WBC 7.5 RBC 4.36 Hgb 12.8 Hct 39.3 L MCV 90.1 MCH 29.4 MCHC 32.6 RDW 13.1 Plt Count 331 MPV 8.7 Neut % (Auto) 63.2 Lymph % (Auto) 21.7 Kaufman % (Auto) 10.1 Eos % (Auto) 3.6 Baso % (Auto) 0.5 Neut # (Auto) 4.8 Lymph # (Auto) 1.6 Kaufman # (Auto) 0.8 Eos # (Auto) 0.3 Baso # (Auto) 0.0 Nucleated RBC % (auto) 0 Nucleated RBCs # 0.0 PT INR Sodium Potassium Chloride Carbon Dioxide Anion Gap BUN Creatinine 0.7 GFR Calculation 114.3 Glucose Estimat Average Glucose Hemoglobin A1c Calcium Total Bilirubin AST ALT Alkaline Phosphatase Total Protein Albumin Globulin Procalcitonin 0.06 Urine Color Urine Appearance Urine pH Ur Specific [place] Urine Protein Urine Glucose (UA) Urine Ketones Urine Occult Blood Urine Nitrate Urine Bilirubin Urine Urobilinogen Ur Leukocyte Esterase Ethyl Alcohol < 10 07/28/19 07/28/19 07/28/19 17:59 17:59 18:38 WBC RBC Hgb Hct MCV MCH MCHC RDW Plt Count MPV Neut % (Auto) Lymph % (Auto) Kaufman % (Auto) Eos % (Auto) Baso % (Auto) Neut # (Auto) Lymph # (Auto) Kaufman # (Auto) Eos # (Auto) Baso # (Auto) Nucleated RBC % (auto) Nucleated RBCs # PT 14.50 H INR 1.10 Sodium 140 Potassium 3.3 L Chloride 97 L Carbon Dioxide 30 H Anion Gap 16.3 BUN 9 Creatinine 0.6 L GFR Calculation 136.5 H Glucose 103 Estimat Average Glucose Hemoglobin A1c Calcium 9.3 Total Bilirubin 0.5 AST 15 ALT 16 Alkaline Phosphatase 106 Total Protein 6.7 Albumin 3.7 Globulin 3.0 Procalcitonin Urine Color Yellow Urine Appearance Clear Urine pH 7 Ur Specific [place] 1.010 Urine Protein Neg Urine Glucose (UA) Norm Urine Ketones Negative Urine Occult Blood Neg Urine Nitrate Negative Urine Bilirubin 1+ H Urine Urobilinogen Norm Ur Leukocyte Esterase Negative Ethyl Alcohol 07/29/19 07/29/19 07/29/19 05:48 05:48 05:48 WBC 6.8 RBC 4.07 L Hgb 11.7 Hct 36.2 L MCV 88.9 MCH 28.7 MCHC 32.3 RDW 13.2 Plt Count 350 MPV 8.8 Neut % (Auto) 60.3 Lymph % (Auto) 22.2 Kaufman % (Auto) 11.7 Eos % (Auto) 4.1 Baso % (Auto) 0.4 Neut # (Auto) 4.1 Lymph # (Auto) 1.5 Kaufman # (Auto) 0.8 Eos # (Auto) 0.3 Baso # (Auto) 0.0 Nucleated RBC % (auto) 0 Nucleated RBCs # 0.0 PT INR Sodium 138 Potassium 2.8 L* Chloride 100 Carbon Dioxide 26 Anion Gap 14.8 BUN 10 Creatinine 0.7 GFR Calculation 114.3 Glucose 136 H Estimat Average Glucose 126 Hemoglobin A1c 6.0 Calcium 9.2 Total Bilirubin 0.6 AST 13 ALT 14 Alkaline Phosphatase 97 Total Protein 6.8 Albumin 3.4 L Globulin 3.4 Procalcitonin Urine Color Urine Appearance Urine pH Ur Specific [place] Urine Protein Urine Glucose (UA) Urine Ketones Urine Occult Blood Urine Nitrate Urine Bilirubin Urine Urobilinogen Ur Leukocyte Esterase Ethyl Alcohol Micro: Microbiology 07/28/19 18:12 Blood Culture - Preliminary Blood SPECIMEN COLLECTED 07/28/19 17:59 Blood Culture - Preliminary Blood SPECIMEN COLLECTED Cardiac Studies: No Data to Display
--- NOTE | 2019-07-29 10:01 | PM.CONSULT ---
Providers/Reason For Consult Consulting Physican/Specialty*: Internal medicine Reason for Consult*: Left gluteal decubitus ulcer Attending Physician: Abhinav Benitez MD History of Present Illness History of Present Illness Satish Jones is a 64 year old male who was seen in the wound care yesterday and was noted to have a necrotic gluteal decubitus ulcer. Patient was recently admitted to the hospital for his lymphedema and thinks that he developed the wound after his hospitalization. He denies any fevers chills or significant pain. He was admitted to the hospital last night for IV antibiotics. Review of Systems Const: Denies: fever, chills, change in weight or fatigue Eyes: Denies: change in vision ENMT: Denies: painful swallowing Card: Denies: chest pain Resp: Denies: shortness of breath GI: Denies: abdominal pain, difficulty swallowing or blood in stool : Denies: painful urination Skin/Breast: Denies: rash, nipple discharge or breast mass/lump Neuro: Denies: seizure-like activity Kota/Lymph: Denies: easy bruising Meds/Allergies Home Medications and Allergies Home Medications Medication Instructions Recorded Confirmed Type amlodipine 10 mg PO DAILY 07/28/19 07/28/19 History clindamycin HCl 300 mg PO QID 07/28/19 07/28/19 History furosemide [Lasix] 40 mg PO DAILY 07/28/19 07/28/19 History Allergies Allergy/AdvReac Type Severity Reaction Status Date / Time No Known Allergies Allergy Verified 07/28/19 16:52 Current Medications Current Medications Generic Name Dose Route Start Last Admin Trade Name Freq PRN Reason Stop Dose Admin Albuterol/Ipratropium 3 ml 07/28/19 21:00 07/29/19 08:27 Duoneb INHALATION 3 ml Q6H.RESPIRATORY MAYNOR Administration Heparin Sodium (Beef Lung) 5,000 unit 07/28/19 19:30 07/28/19 20:02 Heparin SUBCUT 5,000 unit Q12H MAYNOR Administration Ceftriaxone Sodium 1,000 mg/ 50 mls @ 100 mls/hr 07/28/19 18:00 07/29/19 09:11 Sodium Chloride IV 100 mls/hr Q12H MAYNOR Administration Protocol Vancomycin HCl 2,000 mg/ 500 mls @ 250 mls/hr 07/28/19 22:00 07/29/19 01:03 Sodium Chloride IV 250 mls/hr Q12H MAYNOR Administration Potassium Chloride/Sodium Chloride 20 meq in 1,000 mls @ 75 mls/hr 07/28/19 23:15 07/29/19 01:03 Sodium Chlor 0.9% + Kcl 20 Meq IV 75 mls/hr .[id number] MAYNOR Administration Potassium Chloride 40 meq in 100 mls @ 25 mls/hr 07/29/19 08:37 07/29/19 09:23 K-Juan IV 07/29/19 12:36 25 mls/hr ONCE ONE Administration Lorazepam 2 mg 07/28/19 17:33 07/28/19 20:01 Ativan PO 2 mg PROTOCOL PRN Administration WITHDRAWAL Protocol Terbinafine HCl 1 applic 07/29/19 04:00 07/29/19 06:31 Lamisil TOPICAL 1 applic BID MAYNOR Administration PFSH Acute PFSH: Statuses (acute, chronic, etc) shown below reflect problem list status as previously entered and may not be historically accurate Medical History Prostate cancer (Acute) Pulmonary embolism (Acute) Surgical History H/O prostatectomy (Acute) History of umbilical hernia repair (Acute) Status post colonoscopy (Acute) Vitals/I&O/Wt Last Vital Signs Temp 97.9 F 07/29/19 07:44 Pulse 79 07/29/19 08:34 Resp 16 07/29/19 08:34 BP 126/76 07/29/19 07:44 Pulse Ox 95 07/29/19 08:34 07/28/19 07/29/19 07/29/19 22:59 06:59 14:59 Intake Total 50 / 425 375 / 425 Output Total Balance 40 / 415 375 / 415 Weight last 48 hrs Weight 269 lb 3 oz Weight 267 lb Physical Exam Narrative: EXAM NARRATIVE: HEENT: Normocephalic Eye: Sclera /conjunctiva normal Respiratory and chest: Bilateral clear breath sounds on auscultation Cardiovascular: Normal S1 and S2 heart sounds Abdomen: Soft to palpation Neurological: Oriented to place person and time Skin: Intact, 6 x 5 cm necrotic left gluteal wound Urinary Catheter Management^: Jeffery: Cath Placed During This Visit: no Data Micro: Micro: Microbiology 07/28/19 18:12 Blood Culture - Pr eliminary Blood SPECIMEN COLLE NIKITA 07/28/19 17:59 Blood Culture - Pr eliminary Blood SPECIMEN [facility] NIKITA A&P Assessment and plan (1) Sacral pressure ulcer: Plan for debridement under MAC today Continue IV antibiotics Procedure, risks, benefits and alternatives have been discussed with the patient who wishes to proceed with surgery. Status: Acute Code(s): L89.159 - Pressure ulcer of sacral region, unspecified stage Coding Level of Care Code Acute Energy Conservation Representative for [facility] Diagnoses Sacral pressure ulcer L89.159
[2019-07-29] MEDS: sodium chloride 0.9% 1,000 ML 30 ML IV (10:05)
--- NOTE | 2019-07-29 11:05 | PM.OP ---
Operative Report Date of procedure: July 29, 2019 Pre-op Diagnosis: Left gluteal decubitus ulcer Post-op diagnosis: same Post-op Diagnosis: Wound measured 11 x 6 x 7 cm Procedure Done: Excisional debridement of necrotic skin, subcutaneous tissue using cautery Specimens removed/disposition: Aerobic anaerobic wound culture sent Surgeon: Tommie Ward Anesthesia: MAC Estimated blood loss (mL): 25 Condition: stable Disposition: PACU Procedure: The patient was taken to the operating room and placed in the left lateral position under MAC. Patient is currently on therapeutic IV antibiotics. The area around the wound on the left gluteal region was prepped and draped in a sterile manner. Using electrocautery excisional debridement of necrotic skin and subcutaneous tissue was performed resulting in a wound measuring 11 x 7 x 6 cm. The wound was irrigated with saline, hemostasis ensured using electrocautery. 8 x 4 cm Surgicel x2 was placed at the base of the wound for hemostasis and packed with Kerlix gauze soaked in 2% lidocaine. The wound was then covered with ABDs. Patient was transferred to recovery room in stable condition.
--- NOTE | 2019-07-29 11:11 | SUR.PHASEI ---
pt to pacu awake alert repositioned self to rt side, dressing to lt hip d/i, bill catheter from floor patent of yellow urine vss pt requests food to eat, DR Ward updated family in waiting room.
[2019-07-29] MEDS: HYDROcodone-acetaminophen 5-325 mg Tablet 1 TAB PO ×2 (11:51→18:39)
[2019-07-29] MEDS: thiamine 100 mg Tablet PO (11:51)
[2019-07-29] MEDS: folic acid 1 mg Tablet PO (11:51)
[2019-07-29] MEDS: multivitamin therapeutic Tablet 1 TAB PO (11:51)
--- NOTE | 2019-07-29 12:04 | SUR.PHASEI ---
1130 PT TO ROOM, WALKED TO CHAIR, DRESSING D/I FAMILY AND NURSE IN ROOM. PT ALERT TALKATIVE. BP 129/81,HR 85, RESP 16 SATS ON 3LNC 100%
[2019-07-29 13:11] LABS: Glucose Point of Care 124 mg/dL (70-110)
[2019-07-29] MEDS: enoxaparin 100 mg/mL Syringe 120 MG SUBCUT (14:04)
--- NOTE | 2019-07-29 17:12 | P.PN_ITS ---
Subjective Subjective: Interval history: This morning patient was seen postop after debridement done by Dr. Ward, patient states that he is doing well after the surgery, trying to stay off the surgical site, states that he only wants to go home when he feels that he is ready, possibly Wednesday, no nausea, no vomiting, no lightheadedness, no dizziness, no chest pain, no shortness of breath, Vitals/I&O/Wt Last Vital Signs Temp 99.2 F 07/29/19 11:07 Pulse 89 07/29/19 15:46 Resp 18 07/29/19 15:46 BP 148/71 07/29/19 15:46 Pulse Ox 100 07/29/19 15:46 07/29/19 07/29/19 07/29/19 06:59 14:59 22:59 Intake Total 875 / 925 2216 / 2216 100 / 2316 Output Total 400 / 400 Balance 875 / 915 1816 / 1816 100 / 1916 Weight last 48 hrs Weight 122.101 kg Weight 121.109 kg Physical Exam Const: COMMON NORMALS: no apparent distress and oriented x3 HENMT: COMMON NORMALS: normocephalic HEAD & SCALP: normocephalic Neck/C-Spine: COMMON NORMALS: no JVD Resp: COMMON NORMALS: normal respiratory effort, no retractions, no use of accessory muscles and clear to auscultation bilaterally AUSCULTATION: clear to auscultation bilaterally Cardio: COMMON NORMALS: no JVD, regular rate, regular rhythm, S1 normal heart sound and S2 normal heart sound RATE: regular rate RHYTHM: regular rhythm HEART SOUNDS: S1 normal and S2 normal GI: COMMON NORMALS: normal to inspection, nondistended, normoactive bowel sounds, soft to palpation, non-tender, no hepatosplenomegaly, no masses and no bruits PALPATION: Yes soft and Yes no hepatosplenomegaly Extremity: NARRATIVE EXTREMITY EXAM: Bilateral lymphedema Neuro: COMMON NORMALS: oriented x3 Psych: COMMON NORMALS: mental status grossly normal Skin: OTHER: Sacral ulcer packed, with ABDs on top Urinary Catheter Management^: Jeffery: Cath Placed During This Visit: no Data : 07/29/19 05:48 07/29/19 05:48 Micro: Microbiology 07/28/19 18:38 MRSA Culture - Final Nose 07/28/19 18:12 Blood Culture - Preliminary Blood SPECIMEN COLLECTED 07/28/19 17:59 Blood Culture - Preliminary Blood SPECIMEN COLLECTED A&P Assessment and plan (1) Sacral pressure ulcer: -Status post left gluteal decubitus ulcer debridement of necrotic skin by Dr. Ward, -Cultures sent -Patient on vancomycin and ceftriaxone Status: Acute Code(s): L89.159 - Pressure ulcer of sacral region, unspecified stage (2) Obesity, morbid: Status: Acute Code(s): E66.01 - Morbid (severe) obesity due to excess calories (3) Lymphedema: Status: Acute Code(s): I89.0 - Lymphedema, not elsewhere classified (4) Hypertension: Status: Acute Code(s): I10 - Essential (primary) hypertension (5) Alcohol abuse: CIWA protocol, thiamine, multivitamin Status: Acute Code(s): F10.10 - Alcohol abuse, uncomplicated (6) Pulmonary embolism: Resume therapeutic Lovenox Status: Acute Code(s): I26.99 - Other pulmonary embolism without acute cor pulmonale Additional A&P Information Recent history of Klebsiella pneumonia bacteremia secondary to UTI, and cellulitis of lower extremities has finished vancomycin and Rocephin History of drug fevers, none since here DVT ppx: heparin Full code Attestations Medical Necessity Statement*: Patient requires continued hospitalization due to sacral ulcer status post debridement, cellulitis on antibiotics, Coding Level of Care Code Acute Major Assembly Inspector for [facility] Diagnoses Sacral pressure ulcer L89.159 Obesity, morbid E66.01 Lymphedema I89.0 Hypertension I10 Alcohol abuse F10.10 Pulmonary embolism I26.99
--- NOTE | 2019-07-29 20:48 | PC.RESP ---
pt stated he did not want woken up in for 2 am treatment in the morning. pt stated he does not care to take breathing tx but states he doesnt need or want them. pt took breathing tx at this time though
[2019-07-29 23:45] LABS: Vancomycin Trough 9.8 ug/mL (10-15)
[2019-07-30] VITALS (9 sets, daily range): BP systolic 105–150; BP diastolic 63–76; PULSE 67–88; RESP 16–20; TEMP 36.3–36.9; O2SAT 93–97
[2019-07-30] MEDS: HYDROcodone-acetaminophen 5-325 mg Tablet 1 TAB PO ×4 (00:39→19:32)
[2019-07-30] MEDS: enoxaparin 100 mg/mL Syringe 120 MG SUBCUT ×2 (00:40→11:48)
[2019-07-30 06:18] LABS: Basophils % 0.3 %; Eosinophils # 0.3 10^3/uL (0.0-0.8); Eosinophils % 5.3 %; Hemoglobin 11.3 g/dL (11.7-16.6); Lymphocytes # 1.5 10^3/uL (0.8-4.8); Lymphocytes % 24.6 %; Mean Corpuscular HGB Conc 31.4 g/dL (30.0-36.0); Mean Corpuscular Hemoglobin 30.2 pg (28.0-34.0); Mean Corpuscular Volume 96.3 fL (80-94); Mean Platelet Volume 8.4 fL (7.4-10.4); Monocytes # 0.8 10^3/uL (0.2-0.9); Monocytes % 12.8 %; Neutrophils # 3.4 10^3/uL (1.8-7.7); Neutrophils % 55.8 %; Nucleated Red Blood Cells % 0 %; Platelet Count 320 10^3/cmm (130-400); Red Blood Count 3.74 10^6/uL (4.1-5.3); Red Cell Distribution Width 13.4 % (12.1-15.1)
[2019-07-30 06:46] LABS: Alanine Aminotransferase 11 U/L (0-41); Albumin Level 2.9 g/dL (3.5-5.2); Alkaline Phosphatase 86 IU/L (40-130); Anion Gap 15.5 (5-19); Aspartate Amino Transferase 8 U/L (0-40); Blood Urea Nitrogen 8 mg/dL (8-23); Calcium 9.1 mg/dL (8.5-10.5); Carbon Dioxide 24 mmol/L (22-29); Chloride 102 mmol/L (98-107); Globulin 3.8 g/dL (1.3-4.6); Glomerular Filtration Rate 114.3 mL/min (90-130); Glucose 114 mg/dL (74-106); Magnesium 1.9 mg/dL (1.7-2.3); Phosphorus 3.1 mg/dL (2.5-4.5); Potassium 3.5 mmol/L (3.5-5.1); Sodium 138 mmol/L (136-145); Total Bilirubin 0.6 mg/dL (0.15-1.2); Total Protein 6.7 g/dL (6.6-8.7)
[2019-07-30] MEDS: ipratropium-albuterol 3 mL Neb INHALATION (09:00)
[2019-07-30] MEDS: cefTRIAXone 1,000 MG in sodium chloride 0.9% (plus) 50 ML 100 MG IV ×2 (09:36→19:33)
[2019-07-30] MEDS: amlodipine 10 mg Tablet PO (09:37)
[2019-07-30] MEDS: FUROsemide 40 mg Tablet PO (09:37)
[2019-07-30] MEDS: multivitamin therapeutic Tablet 1 TAB PO (09:37)
[2019-07-30] MEDS: thiamine 100 mg Tablet PO (09:37)
[2019-07-30] MEDS: folic acid 1 mg Tablet PO (09:37)
[2019-07-30] MEDS: terbinafine 1% Cream 15 gm 1 APPLIC TOPICAL ×2 (10:54→18:39)
[2019-07-30] MEDS: sodium chlor 0.9% + KCl 20 mEq 20 MEQ/1,000 ML BAG 75 MEQ IV (16:18)
[2019-07-30] MEDS: warfarin 5 mg Tablet PO (18:39)
--- NOTE | 2019-07-30 18:49 | PM.PN ---
Subjective Subjective: Interval history: This morning patient is up and walking, is trying to keep off his sacral ulcer, no fevers, no chills, states that he is not ready to go home just yet Vitals/I&O/Wt Last Vital Signs Temp 97.7 F 07/30/19 15:22 Pulse 85 07/30/19 15:22 Resp 18 07/30/19 15:22 BP 118/76 07/30/19 15:22 Pulse Ox 96 07/30/19 15:22 07/30/19 07/30/19 07/30/19 06:59 14:59 22:59 Intake Total 500 / 3671 1000 / 1000 Output Total 1000 / 1400 400 / 400 Balance -500 / 2271 600 / 600 Weight last 48 hrs Weight 122.062 kg Weight 122.101 kg Physical Exam Const: COMMON NORMALS: no apparent distress and oriented x3 Neck/C-Spine: COMMON NORMALS: no JVD Resp: COMMON NORMALS: normal respiratory effort, no retractions, no use of accessory muscles and clear to auscultation bilaterally AUSCULTATION: clear to auscultation bilaterally Cardio: COMMON NORMALS: no JVD, regular rate, regular rhythm, S1 normal heart sound and S2 normal heart sound RATE: regular rate RHYTHM: regular rhythm HEART SOUNDS: S1 normal and S2 normal GI: COMMON NORMALS: normal to inspection, nondistended, normoactive bowel sounds, soft to palpation, non-tender, no hepatosplenomegaly, no masses and no bruits PALPATION: Yes soft and Yes no hepatosplenomegaly Extremity: NARRATIVE EXTREMITY EXAM: Bilateral lymphedema Neuro: COMMON NORMALS: oriented x3 Psych: COMMON NORMALS: mental status grossly normal Skin: OTHER: Sacral ulcer packed, with ABDs on top Urinary Catheter Management^: Jeffery: Cath Placed During This Visit: no Data : 07/30/19 06:04 07/30/19 06:04 Micro: Microbiology 07/29/19 10:38 Gram Stain - Final Buttock Tissue Culture - Preliminary Gram Negative Rods 07/28/19 18:12 Blood Culture - Preliminary Blood NEGATIVE TO DATE 07/28/19 17:59 Blood Culture - Preliminary Blood NEGATIVE TO DATE A&P Assessment and plan (1) Sacral pressure ulcer: -Status post left gluteal decubitus ulcer debridement of necrotic skin by Dr. Ward, -Cultures show gram-negative rods -Patient on vancomycin and ceftriaxone Status: Acute Code(s): L89.159 - Pressure ulcer of sacral region, unspecified stage (2) Obesity, morbid: Status: Acute Code(s): E66.01 - Morbid (severe) obesity due to excess calories (3) Lymphedema: Status: Acute Code(s): I89.0 - Lymphedema, not elsewhere classified (4) Hypertension: Status: Acute Code(s): I10 - Essential (primary) hypertension (5) Alcohol abuse: CIWA protocol, thiamine, multivitamin Status: Acute Code(s): F10.10 - Alcohol abuse, uncomplicated (6) Pulmonary embolism: Resume therapeutic Lovenox Coumadin dosing as per pharmacy Patient is a poor candidate for Eliquis as he states that he cannot afford it, and given and also given his BMI and weight Status: Acute Code(s): I26.99 - Other pulmonary embolism without acute cor pulmonale Additional A&P Information Recent history of Klebsiella pneumonia bacteremia secondary to UTI, and cellulitis of lower extremities has finished vancomycin and Rocephin History of drug fevers, none since here DVT ppx: Lovenox Full code Attestations Medical Necessity Statement*: Patient was continued hospitalization due to sacral ulcer status post debridement Coding Level of Care Code Acute Director Of Health Care Marketing for [facility] Diagnoses Sacral pressure ulcer L89.159 Obesity, morbid E66.01 Lymphedema I89.0 Hypertension I10 Alcohol abuse F10.10 Pulmonary embolism I26.99
[2019-07-31] VITALS (10 sets, daily range): BP systolic 115–121; BP diastolic 61–74; PULSE 58–83; RESP 16–20; TEMP 36.4–36.9; O2SAT 91–99
--- NOTE | 2019-07-31 00:01 | PC.NURSE ---
Pt refused lovenox shot. I educated pt on the benefits of tis medication and patient stated bullshit, I dont want it
[2019-07-31] MEDS: HYDROcodone-acetaminophen 5-325 mg Tablet 1 TAB PO ×3 (02:58→18:42)
[2019-07-31] MEDS: sodium chlor 0.9% + KCl 20 mEq 20 MEQ/1,000 ML BAG 75 MEQ IV (04:35)
[2019-07-31 05:25] LABS: Basophils % 0.3 %; Eosinophils # 0.3 10^3/uL (0.0-0.8); Eosinophils % 4.9 %; Hematocrit 33.1 % (42.0-52.0); Hemoglobin 10.5 g/dL (11.7-16.6); Lymphocytes # 1.4 10^3/uL (0.8-4.8); Lymphocytes % 21.8 %; Mean Corpuscular HGB Conc 31.7 g/dL (30.0-36.0); Mean Corpuscular Hemoglobin 30.1 pg (28.0-34.0); Mean Corpuscular Volume 94.8 fL (80-94); Mean Platelet Volume 8.4 fL (7.4-10.4); Monocytes # 0.7 10^3/uL (0.2-0.9); Neutrophils # 3.9 10^3/uL (1.8-7.7); Neutrophils % 61.4 %; Nucleated Red Blood Cells % 0 %; Platelet Count 339 10^3/cmm (130-400); Red Blood Count 3.49 10^6/uL (4.1-5.3); Red Cell Distribution Width 13.4 % (12.1-15.1); White Blood Count 6.4 10^3/uL (4.0-10.0)
[2019-07-31 05:41] LABS: INR 1.16 (0.8-1.2)
[2019-07-31 05:48] LABS: Alanine Aminotransferase 10 U/L (0-41); Albumin Level 2.8 g/dL (3.5-5.2); Alkaline Phosphatase 84 IU/L (40-130); Anion Gap 12.4 (5-19); Aspartate Amino Transferase 9 U/L (0-40); Blood Urea Nitrogen 9 mg/dL (8-23); Carbon Dioxide 26 mmol/L (22-29); Chloride 103 mmol/L (98-107); Globulin 3.6 g/dL (1.3-4.6); Glomerular Filtration Rate 136.5 mL/min (90-130); Glucose 117 mg/dL (74-106); Magnesium 1.7 mg/dL (1.7-2.3); Phosphorus 3.2 mg/dL (2.5-4.5); Potassium 3.4 mmol/L (3.5-5.1); Sodium 138 mmol/L (136-145); Total Bilirubin 0.4 mg/dL (0.15-1.2); Total Protein 6.4 g/dL (6.6-8.7)
[2019-07-31] MEDS: cefTRIAXone 1,000 MG in sodium chloride 0.9% (plus) 50 ML 100 MG IV (08:40)
[2019-07-31] MEDS: thiamine 100 mg Tablet PO (08:41)
[2019-07-31] MEDS: multivitamin therapeutic Tablet 1 TAB PO (08:41)
[2019-07-31] MEDS: terbinafine 1% Cream 15 gm 1 APPLIC TOPICAL ×2 (08:41→18:15)
[2019-07-31] MEDS: folic acid 1 mg Tablet PO (08:41)
[2019-07-31] MEDS: FUROsemide 40 mg Tablet PO (08:41)
[2019-07-31] MEDS: amlodipine 10 mg Tablet PO (08:41)
--- NOTE | 2019-07-31 09:29 | P.PN_ITS ---
Subjective Subjective: Interval history: Chart reviewed, AM labs noted, wound cultures pending ID & sensitivity. INR subtherapeutic, had 550 mL urine output overnight. Patient seen and examined, son at bedside, has developed a generalized pruritic rash primarily on his abdomen and upper extremities. Unclear if reaction to medication. Reviewed micro showing E.coli with noted sensitivity. Will start on levaquin. Medications: Reviewed: Yes Medication Review Details: Current Medications Generic Name Dose Route Start Last Admin Trade Name Freq PRN Reason Stop Dose Admin Hydrocodone Bitart /Acetaminophen 1 tab 07/28/19 17:25 07/31/19 02:58 [place] 5-325 Mg PO 1 tab Q6H PRN Administration MODERATE TO SEVER E PAIN Albuterol/Ipratrop ium 3 ml 07/28/19 21:00 07/30/19 17:42 Duoneb INHALATION Not Given Q6H.RESPIRATORY S [facility] Amlodipine Besylat e 10 mg 07/30/19 09:00 07/31/19 08:41 Norvasc PO 10 mg DAILY MAYNOR Administration Enoxaparin Sodium 120 mg 07/29/19 13:00 07/31/19 00:00 Lovenox 1 mg/kg (120 mg) Not Given SUBCUT Q12H MAYNOR Folic Acid 1 mg 07/29/19 09:00 07/31/19 08:41 Folic Acid PO 1 mg DAILY MAYNOR Administration Furosemide 40 mg 07/30/19 09:00 07/31/19 08:41 Lasix PO 40 mg DAILY MAYNOR Administration Ceftriaxone Sodium 1,000 mg/ 50 mls @ 100 mls/ hr 07/28/19 18:00 07/31/19 08:40 Sodium Chloride IV 100 mls/hr Q12H MAYNOR Administration Protocol Vancomycin HCl 2,0 00 mg/ 500 mls @ 250 mls /hr 07/28/19 22:00 07/30/19 23:58 Sodium Chloride IV 500 mls/hr Q12H MAYNOR Administration Potassium Chloride /Sodium Chloride 20 meq in 1,000 m ls @ 75 mls/hr 07/28/19 23:15 07/31/19 04:35 Sodium Chlor 0.9 % + Kcl 20 Meq IV 75 mls/hr .[id number] MAYNOR Administration Lorazepam 2 mg 07/28/19 17:33 07/28/19 20:01 Ativan PO 2 mg PROTOCOL PRN Administration WITHDRAWAL Protocol Multivitamins Ther apeutic 1 tab 07/29/19 09:00 07/31/19 08:41 Multivitamin Tab PO 1 tab DAILY MAYNOR Administration Terbinafine HCl 1 applic 07/29/19 04:00 07/31/19 08:41 Lamisil TOPICAL 1 applic BID MAYNOR Administration Thiamine Mononitra te 100 mg 07/29/19 09:00 07/31/19 08:41 Vitamin B-1 PO 100 mg DAILY MAYNOR Administration Warfarin Sodium 5 mg 07/30/19 17:00 07/30/19 18:39 Coumadin PO 5 mg DAILY@1400 MAYNOR Administration Vitals/I&O/Wt Last Vital Signs Temp 97.6 F 07/31/19 07:14 Pulse 80 07/31/19 08:29 Resp 16 07/31/19 08:29 BP 115/71 07/31/19 07:14 Pulse Ox 97 07/31/19 08:29 07/30/19 07/31/19 07/31/19 22:59 06:59 14:59 Intake Total 170 / 1720 1921.25 / 3641.25 Output Total 550 / 950 Balance 170 / 1320 1371.25 / 2691.25 Weight last 48 hrs Weight 123.15 kg Weight 122.062 kg Physical Exam Const: COMMON NORMALS: no apparent distress and oriented x3 GENERAL APPEARANCE: cooperative and comfortable NUTRITIONAL APPEARANCE: obese centrally obese ORIENTATION/CONSCIOUSNESS: Yes awake HENMT: COMMON NORMALS: normocephalic, head/scalp atraumatic, hearing grossly normal bilaterally and moist oral mucous membranes HEAD & SCALP: normocephalic and atraumatic Eye: COMMON NORMALS: PERRL, EOMs intact bilaterally and conjunctivae normal CONJUNCTIVA: Yes conjunctivae normal PUPIL: Yes PERRL Neck/C-Spine: COMMON NORMALS: full ROM GENERAL: Yes normal visual inspection and Yes trachea midline Resp: COMMON NORMALS: normal respiratory effort, no retractions, no use of accessory muscles and clear to auscultation bilaterally EFFORT & INSPECTION: Yes able to speak in complete sentences, Yes symmetric chest movement and No tachypneic AUSCULTATION: clear to auscultation bilaterally Cardio: COMMON NORMALS: regular rate, regular rhythm, S1 normal heart sound, S2 normal heart sound and no murmurs RATE: regular rate RHYTHM: regular rhythm HEART SOUNDS: S1 normal and S2 normal GI: COMMON NORMALS: normal to inspection, nondistended, normoactive bowel sounds, soft to palpation and non-tender PALPATION: Yes soft Extremity: COMMON NORMALS: normal to inspection, full ROM and no clubbing, cy anosis or edema; negative for no pedal edema Neuro: COMMON NORMALS: oriented x3, moves all extremities, no focal motor de ficits, no sensory deficits noted and gait normal Psych: COMMON NORMALS: mental status grossly normal, thought process normal, cooperative, affect normal and speech normal SPEECH: Yes normal speech THOUGHT PROCESS: normal thought process Skin: COMMON NORMALS: no rashes or lesions noted, no jaundice, no petechiae and no mottling GENERAL SKIN EXAM: no rashes or lesions noted OTHER: -L gluteal wound -noted urticarial lesions on abdomen, bilateral upper extremities (R>L), back Urinary Catheter Management^: Jeffery: Cath Placed During This Visit: no Data : 07/31/19 05:11 07/31/19 05:11 Micro: Microbiology 07/29/19 10:38 Gram Stain - Final Buttock Tissue Culture - Preliminary Gram Negative Rods A&P Assessment and plan (1) Sacral pressure ulcer: -s/p excisional debridement, POD # 2, done by Dr. Ward -wound cx pending, so far growing GNRs -blood cx: negative -afebrile, no leukocytosis -wound care, frequent repositioning -continue Vanc, Ceftriaxone; switch to Levaquin based on wound sensitivity Status: Acute Qualifiers: Pressure injury stage: unspecified pressure injury stage Qualified Code(s): L89.159 - Pressure ulcer of sacral region, unspecified stage Code(s): L89.159 - Pressure ulcer of sacral region, unspecified stage (2) Pulmonary embolism: -noted small PE in LLL on CTA PE; no evidence of cor pulmonale -on bridging anticoagulation with Lovenox and Coumadin; INR suptherapeutic. Has had issues with compliance so may need to complete bridging here -daily INR Status: Acute Qualifiers: Pulmonary embolism type: single subsegmental (without acute cor pulmonale) Qualified Code(s): I26.93 - Single subsegmental pulmonary embolism without acute cor pulmonale Code(s): I26.99 - Other pulmonary embolism without acute cor pulmonale (3) Lymphedema: -has chronic lymphedema of bilateral LE -LE elevation and lymphedema wraps if appropriate -negative DVT per venous duplex Status: Acute Code(s): I89.0 - Lymphedema, not elsewhere classified (4) Alcohol abuse: -has known hx of EtOH abuse -CIWA protocol, thiamine/MVI/folate daily Status: Acute Code(s): F10.10 - Alcohol abuse, uncomplicated Additional A&P Information -Morbid obesity: BMI-40 kg/m2 -hx of COPD with recent hx of ventilator dependent respiratory failure with prolonged mechanical vent support -hx of recent Klebsiella pneumoniae bacteremia; treated with course of Vanc/Ceftriaxone -intermittent normocytic anemia; baseline Hg is wnl; could be dilutional as on IVF. Continue to monitor H/H especially as on anticoagulation -hypokalemia; replace K as needed -on therapeutic anticoagulation so no need for DVT ppx -Dispo: home -Code status: FULL code Attestations Medical Necessity Statement*: Patient requires hospitalization for continued IV antibiotics pending wound culture results. Time Spent in Patient Care: Greater than 35 minutes (>than 50% of time spe nt in counselling and/or direct pt care on unit) . Coding Level of Care Code Acute Yeast Fermentation Attendant for [facility] Exam Problem Focused Diagnoses Sacral pressure ulcer L89.159 Pressure injury stage: unspecified pressure injury stage Pulmonary embolism I26.93 Pulmonary embolism type: single subsegmental (without acute cor pulmonale) Lymphedema I89.0 Alcohol abuse F10.10
[2019-07-31] MEDS: enoxaparin 100 mg/mL Syringe 120 MG SUBCUT (11:46)
[2019-07-31] MEDS: warfarin 5 mg Tablet PO (14:42)
[2019-07-31] MEDS: ipratropium-albuterol 3 mL Neb INHALATION (15:00)
[2019-08-01] MEDS: HYDROcodone-acetaminophen 5-325 mg Tablet 1 TAB PO ×2 (00:39→06:37)
[2019-08-01 04:00] VITALS: BP 115/64; PULSE 72; RESP 20; TEMP 36.8; O2SAT 97
[2019-08-01 06:04] LABS: Basophils % 0.3 %; Eosinophils # 0.3 10^3/uL (0.0-0.8); Eosinophils % 4.2 %; Hematocrit 31.8 % (42.0-52.0); Hemoglobin 10.3 g/dL (11.7-16.6); Lymphocytes # 1.4 10^3/uL (0.8-4.8); Mean Corpuscular HGB Conc 32.4 g/dL (30.0-36.0); Mean Corpuscular Hemoglobin 29.5 pg (28.0-34.0); Mean Corpuscular Volume 91.1 fL (80-94); Mean Platelet Volume 8.5 fL (7.4-10.4); Monocytes # 0.5 10^3/uL (0.2-0.9); Monocytes % 8.6 %; Neutrophils % 63.4 %; Nucleated Red Blood Cells % 0 %; Platelet Count 393 10^3/cmm (130-400); Red Blood Count 3.49 10^6/uL (4.1-5.3); Red Cell Distribution Width 13.2 % (12.1-15.1); White Blood Count 6.3 10^3/uL (4.0-10.0)
[2019-08-01 06:13] LABS: INR 1.16 (0.8-1.2)
[2019-08-01 06:46] LABS: Magnesium 1.8 mg/dL (1.7-2.3); Phosphorus 3.6 mg/dL (2.5-4.5)
[2019-08-01] MEDS: levoFLOXacin 750 mg Tablet PO (06:52)
[2019-08-01] MEDS: sodium chlor 0.9% + KCl 20 mEq 20 MEQ/1,000 ML BAG 75 MEQ IV (06:52)
[2019-08-01 07:12] VITALS: BP 110/69; PULSE 74; RESP 16; TEMP 36.4; O2SAT 95
--- NOTE | 2019-08-01 08:17 | P.DS_ITS ---
Discharge Providers Date of Admission: 07/28/19 16:01 Date of Discharge: Date of Discharge: August 01, 2019 Attending Provider at Admission: Nikita Rodgers MD Attending Provider at Discharge: Fe Hoffman MD Diagnoses at Discharge Discharge Diagnosis (1) Sacral pressure ulcer: Status: Acute Problem details: -s/p excisional debridement, POD # 3, done by Dr. Ward -wound cx growing E.coli; sensitivity noted -blood cx: negative -afebrile, no leukocytosis -wound care, frequent repositioning -off Vanc, Ceftriaxone; switched to Levaquin based on wound sensitivity; to co mplete 14 day course Qualifiers: Pressure injury stage: unspecified pressure injury stage Qualified Code(s): L89.159 - Pressure ulcer of sacral region, unspecified stage (2) Pulmonary embolism: Status: Acute Problem details: -noted small PE in LLL on CTA PE; no evidence of cor pulmonale -on bridging anticoagulation with Lovenox and Coumadin; INR suptherapeutic. Patient has been refusing the injections. Has had issues with compliance so will switch to Eliquis -daily INR -risk of fall with hx of EtOH abuse; may not be a good candidate for longer term anticoagulation Qualifiers: Pulmonary embolism type: single subsegmental (without acute cor pulmonale) Qualified Code(s): I26.93 - Single subsegmental pulmonary embolism without acute cor pulmonale (3) Lymphedema: Status: Acute Problem details: -has chronic lymphedema of bilateral LE -LE elevation and lymphedema wraps if appropriate -negative DVT per venous duplex (4) Alcohol abuse: Status: Acute Problem details: -has known hx of EtOH abuse -CIWA protocol, thiamine/MVI/folate daily Reason for Visit Reason for Visit: Reason For Visit: LEFT GLUTAL ULCER Hospital Course Hospital Course: Patient was admitted to the medical surgical floor and started on empiric IV antibiotics. Surgery was consulted due to need for debridement of sacral decubitus ulcer. He had excisional debridement done with wound cultures growing E.coli, sensitivity noted. He had been on Vancomycin and Ceftriaxone; was switched to oral Levaquin which he will be on to complete a 14 day course. He was recently diagnosed with PE and was started on bridging anticoagulation with coumadin and lovenox. His INR remains subtherapeutic and he has been declining his Lovenox injections. To assist with compliance, he will be switched to Eliquis, coupon provided prior to discharge.. He is also quite unlikely to follow up with his primary care provider for INR checks with the bridging anticoagulation and his history of EtOH abuse. He may not be a good candidate for longer term anticoagulation given fall risk associated with alcohol abuse hx. He will be following up at the wound care clinic with Dr. Yobani robison. Discharge Summary: -Patient to follow up with his primary care provider within 1 week -Patient to follow up with Dr. Palmer at the wound care clinic as soon as next available appointment. Physical Exam Const: COMMON NORMALS: no apparent distress and oriented x3 GENERAL APPEARANCE: cooperative and comfortable NUTRITIONAL APPEARANCE: obese centrally obese ORIENTATION/CONSCIOUSNESS: Yes awake HENMT: COMMON NORMALS: normocephalic, head/scalp atraumatic, hearing grossly normal bilaterally and moist oral mucous membranes HEAD & SCALP: normocephalic and atraumatic Eye: COMMON NORMALS: PERRL, EOMs intact bilaterally and conjunctivae normal CONJUNCTIVA: Yes conjunctivae normal PUPIL: Yes PERRL Neck/C-Spine: COMMON NORMALS: full ROM GENERAL: Yes normal visual inspection and Yes trachea midline Resp: COMMON NORMALS: normal respiratory effort, no retractions, no use of accessory muscles and clear to auscultation bilaterally EFFORT & INSPECTION: Yes able to speak in complete sentences, Yes symmetric chest movement and No tachypneic AUSCULTATION: clear to auscultation bilaterally Cardio: COMMON NORMALS: regular rate, regular rhythm, S1 normal heart sound, S2 normal heart sound and no murmurs RATE: regular rate RHYTHM: regular rhythm HEART SOUNDS: S1 normal and S2 normal GI: COMMON NORMALS: normal to inspection, nondistended, normoactive bowel sounds, soft to palpation and non-tender PALPATION: Yes soft Extremity: COMMON NORMALS: normal to inspection, full ROM and no clubbing, cyanosis or edema; negative for no pedal edema Neuro: COMMON NORMALS: oriented x3, moves all extremities, no focal motor deficits, no sensory deficits noted and gait normal Psych: COMMON NORMALS: mental status grossly normal, thought process normal, cooperative, affect normal and speech normal SPEECH: Yes normal speech THOUGHT PROCESS: normal thought process Skin: COMMON NORMALS: no rashes or lesions noted, no jaundice, no petechiae and no mottling GENERAL SKIN EXAM: no rashes or lesions noted OTHER: -L gluteal wound -noted urticarial lesions on abdomen, bilateral upper extremities (R>L), back Urinary Catheter Management^: Jeffery: Cath Placed During This Visit: no Discharge Data Data Completed and Pending: Completed Studies During Hospitalization Category [place] [id number] Urgent Ultrasound 07/28/19 17:31 Completed Pending at discharge Category Date Time Status Blood Culture Sta t Lab 07/28/19 18:12 Results Prothrombin Time INR AM LABS Lab 08/02/19 04:00 Ordered Tissue Culture an d Gram Stain Routi ne Lab 07/29/19 10:38 Results Vancomycin Trough Timed Lab 08/01/19 11:00 Ordered Pathology: Surgic al [PTH] Routine Pth 07/29/19 11:07 Ordered Labs from last 24 hours 08/01/19 08/01/19 08/01/19 05:40 05:40 05:40 WBC 6.3 RBC 3.49 L Hgb 10.3 L Hct 31.8 L MCV 91.1 MCH 29.5 MCHC 32.4 RDW 13.2 Plt Count 393 MPV 8.5 Neut % (Auto) 63.4 Lymph % (Auto) 23.0 [place] % (Auto) 8.6 Eos % (Auto) 4.2 Baso % (Auto) 0.3 Neut # (Auto) 4.0 Lymph # (Auto) 1.4 [place] # (Auto) 0.5 Eos # (Auto) 0.3 Baso # (Auto) 0.0 Nucleated RBC % (a uto) 0 Nucleated RBCs # 0.0 PT 15.20 H INR 1.16 Phosphorus 3.6 Magnesium 1.8 Vitals: Last Vital Signs Temp 97.5 F L 08/01/19 07:12 Pulse 74 08/01/19 07:12 Resp 16 08/01/19 07:12 BP 110/69 08/01/19 07:12 Pulse Ox 95 08/01/19 07:12 Discharge Plan Discharge Patient Disposition: Home, Self-Care Condition: Stable Prescriptions: New levofloxacin 750 mg Tablet 750 mg PO DAILY@0600 14 Days Qty: 14 RF: 0 Eliquis DVT-PE Treat 30D Start 5 mg (74 tabs) tablets,dose pack 10 mg PO BID Qty: 74 RF: 0 Continued Lasix 40 mg Tablet 40 mg PO DAILY RF: 0 amlodipine 10 mg Tablet 10 mg PO DAILY RF: 0 Discontinued clindamycin HCl 300 mg Capsule 300 mg PO QID RF: 0 Discharge Orders: Discharge Order (Routine); Ordered 08/01/19 Ordered By: Fe Hoffman Referrals: Catie Juan FNP [Family Provider] - 4-7 days Nikita Rodgers MD [Physician] - 1-3 days (Follow up on sacral decubitus ulcer) Discharge Diet: Regular Discharge Activity: Resume usual activity Discharge Attestations Time Spent in Discharge Care*: greater than 30 min Specific Discharge Activities: Specific discharge activities: educating and/or supporting family/caregiver, discussing with case advocate/social workers/dc planners, documenting/other paperwork and evaluating patient/reviewing data Status at Discharge: Cognitive status at discharge: cognitively intact , Behavioral status at discharge: cooperative , Functional status at discharge: independent ambulation Overall status at discharge: patient is back to baseline Quality Metrics Clinical Quality Measures During this hospital stay, did patient experience: None Coding Level of Care Code Acute Purchasing Manager for [facility] Fwd Diagnoses Sacral pressure ulcer L89.159 Pressure injury stage: unspecified pressure injury stage Pulmonary embolism I26.93 Pulmonary embolism type: single subsegmental (without acute cor pulmonale) Lymphedema I89.0 Alcohol abuse F10.10
[2019-08-01] MEDS: thiamine 100 mg Tablet PO (08:24)
[2019-08-01] MEDS: multivitamin therapeutic Tablet 1 TAB PO (08:24)
[2019-08-01] MEDS: folic acid 1 mg Tablet PO (08:24)
[2019-08-01] MEDS: amlodipine 10 mg Tablet PO (08:24)
[2019-08-01] MEDS: FUROsemide 40 mg Tablet PO (08:24)
[2019-08-01] MEDS: apixaban 5 mg Tablet 10 MG PO (08:28)
[2019-08-01] MEDS: terbinafine 1% Cream 15 gm 1 APPLIC TOPICAL (08:31)
[2019-08-01] MEDS: ipratropium-albuterol 3 mL Neb INHALATION (08:45)
[2019-08-01 08:48] VITALS: PULSE 71; RESP 18; O2SAT 97
[2019-08-01 08:53] VITALS: PULSE 77
[2019-08-01 09:48] VITALS: PULSE 77
[2019-08-01 11:06] VITALS: BP 124/62; PULSE 82; RESP 16; TEMP 36.8; O2SAT 95
--- NOTE | 2019-08-01 11:36 | PC.NURSE ---
DISCHARGE SUMMARY PATIENT WAS GIVEN DISCHARGE SUMMARY AND INFORMATION ON MEDICATIONS. IV WAS DISCONTINUED. HOME SERVICES AND FOLLOW UP APPOINTMENTS MADE. EXTRA SUPPLIES WERE GIVEN TO PATIENT FOR WOUND DRESSINGS AND INSTRUCTION WERE GIVEN ABOUT CHANGES. PATIENTS VITALS SIGNS STABLE AND HE IS ALERT AND ORIENTED.
== END 2019-08-01 12:07 | disposition home or self-care (01) | DRG 570 ==
PROVIDERS: Family Medicine; Student in an Organized Health Care Education/Training Program; Surgery; Admitting Provider Surgery; Family Provider Nurse Practitioner Family; Visit Provider Family Medicine
PROC: 0JB70ZZ Excision of Back Subcutaneous Tissue and Fascia, Open Approach (ICD-10-PCS; principal; 2019-07-29 10:00)
DX: L89.159 Pressure ulcer of sacral region, unspecified stage (principal); I26.93 Single subsegmental thrombotic pulmonary embolism without acute cor pulmonale; Z68.41 Body mass index [BMI] 40.0-44.9, adult; I89.0 Lymphedema, not elsewhere classified; F10.10 Alcohol abuse, uncomplicated; B96.20 Unspecified Escherichia coli [E. coli] as the cause of diseases classified elsewhere; Z79.899 Other long term (current) drug therapy; Z85.46 Personal history of malignant neoplasm of prostate; E66.01 Morbid (severe) obesity due to excess calories; I10 Essential (primary) hypertension; E87.6 Hypokalemia
CPT/HCPCS: 12345; 36415; 36416; 51702; 80053; 80202; 80307; 81003; 82565; 82962; 83036; 83735; 84100; 84145; 85025; 85610; 87040; 87070; 87077; 87176; 87186; 87205; 87641; 93970; 94640; 96360; 96361; 96365; 96366; 96372; 97110; 97161; 97530; J0696; J1644; J1650; J2001; J2250; J2704; J3010; J3370; J3411; J3480; J7030; J7040

== ENCOUNTER 2019-08-25 14:06 | Outpatient (RCR) | payer BC, SELFPAY | END 2019-08-26 23:59 | disposition home or self-care (01) | LOC: WOUND 14:06 | PROVIDERS: Family Provider Nurse Practitioner Family; Visit Provider Surgery | DX: I96 Gangrene, not elsewhere classified (principal); L89.153 Pressure ulcer of sacral region, stage 3 | CPT/HCPCS: 11042; 11045 ==

== ENCOUNTER 2019-09-22 16:04 | Outpatient (RCR) | payer BC, SELFPAY | END 2019-09-26 23:59 | disposition home or self-care (01) | LOC: WOUND 16:04 | PROVIDERS: Visit Provider Surgery | DX: I96 Gangrene, not elsewhere classified (principal); L89.153 Pressure ulcer of sacral region, stage 3 | CPT/HCPCS: 11042 ==

== ENCOUNTER 2019-10-20 10:38 | Outpatient (RCR) | payer BC, SELFPAY | END 2019-10-26 23:59 | disposition home or self-care (01) | LOC: WOUND 10:38 | PROVIDERS: Visit Provider Surgery | DX: I96 Gangrene, not elsewhere classified (principal); L89.153 Pressure ulcer of sacral region, stage 3 | CPT/HCPCS: 11042 ==

== ENCOUNTER 2019-10-27 08:02 | Outpatient (CLI) | payer BC, SELFPAY | END 2019-10-27 08:03 | disposition home or self-care (01) | PROVIDERS: Visit Provider Surgery | DX: I96 Gangrene, not elsewhere classified (principal); L89.153 Pressure ulcer of sacral region, stage 3 | CPT/HCPCS: 11042 ==

== ENCOUNTER 2019-11-03 09:41 | Outpatient (CLI) | payer BC, SELFPAY | END 2019-11-03 09:42 | disposition home or self-care (01) | LOC: WOUND 09:42 | PROVIDERS: Visit Provider Surgery | DX: I96 Gangrene, not elsewhere classified (principal); L89.153 Pressure ulcer of sacral region, stage 3 | CPT/HCPCS: 11042 ==

== ENCOUNTER 2019-11-10 08:57 | Outpatient (CLI) | payer BC, SELFPAY | END 2019-11-10 08:58 | disposition home or self-care (01) | LOC: WOUND 08:57 | PROVIDERS: Visit Provider Surgery | DX: I96 Gangrene, not elsewhere classified (principal); L89.153 Pressure ulcer of sacral region, stage 3 | CPT/HCPCS: 11042 ==

== ENCOUNTER 2019-11-17 09:17 | Outpatient (CLI) | payer BC, SELFPAY | END 2019-11-17 09:18 | disposition home or self-care (01) | LOC: WOUND 09:17 | PROVIDERS: Family Provider Nurse Practitioner Family; Visit Provider Surgery | DX: I96 Gangrene, not elsewhere classified (principal); L89.153 Pressure ulcer of sacral region, stage 3 | CPT/HCPCS: 11042 ==

== ENCOUNTER 2019-11-24 09:45 | Outpatient (CLI) | payer BC, SELFPAY | END 2019-11-24 09:46 | disposition home or self-care (01) | LOC: WOUND 09:47 | PROVIDERS: Family Provider Nurse Practitioner Family; Visit Provider Surgery | DX: I96 Gangrene, not elsewhere classified (principal); L89.153 Pressure ulcer of sacral region, stage 3 | CPT/HCPCS: 11042 ==

== ENCOUNTER 2019-12-01 10:56 | Outpatient (CLI) | payer BC, SELFPAY | END 2019-12-01 10:57 | disposition home or self-care (01) | LOC: WOUND 10:56 | PROVIDERS: Visit Provider Nurse Practitioner Family | DX: I96 Gangrene, not elsewhere classified (principal); L89.153 Pressure ulcer of sacral region, stage 3 | CPT/HCPCS: 11042 ==

== ENCOUNTER 2019-12-08 11:01 | Outpatient (CLI) | payer BC, SELFPAY | END 2019-12-08 11:02 | disposition home or self-care (01) | LOC: WOUND 11:01 | PROVIDERS: Visit Provider Nurse Practitioner Family | DX: I96 Gangrene, not elsewhere classified (principal); L89.153 Pressure ulcer of sacral region, stage 3 | CPT/HCPCS: 11042 ==

== ENCOUNTER 2019-12-15 15:01 | Outpatient (CLI) | payer BC, SELFPAY | END 2019-12-15 15:02 | disposition home or self-care (01) | LOC: WOUND 15:08 | PROVIDERS: Visit Provider Surgery | DX: I96 Gangrene, not elsewhere classified (principal); L89.153 Pressure ulcer of sacral region, stage 3 | CPT/HCPCS: 11042 ==

== ENCOUNTER 2019-12-22 14:10 | Outpatient (CLI) | payer BC, SELFPAY | END 2019-12-22 14:11 | disposition home or self-care (01) | LOC: WOUND 14:13 | PROVIDERS: Visit Provider Surgery | DX: I96 Gangrene, not elsewhere classified (principal); L89.153 Pressure ulcer of sacral region, stage 3 | CPT/HCPCS: 11042 ==

== ENCOUNTER 2020-09-27 12:21 | Emergency (ER) | payer OTHER, SELFPAY ==
[2020-09-27 12:23] VITALS: BP 140/96; PULSE 78; RESP 22; TEMP 36.4; O2SAT 99; BMI 43.9
--- NOTE | 2020-09-27 12:50 | XR_ITS ---
WS: [id number] Left knee, 3 views, 09/27/2020 Clinical Data: fall/pain Comparison: None. Findings: No fractures or dislocations are seen. The joint spaces are normal. The patella is intact. The soft t issues are unremarkable. XR/XR knee LT 3V* [id number] Impression: Negative left knee.
--- NOTE | 2020-09-27 12:50 | USCV_ITS ---
Satish Jones Age: 65 Gender: M : 1955 Exam Date: 09/27/2020 13:41 Ordering Phys: Raymond Godfrey MD Technologist: Vanessa Turipn Exam Location: [facility] [place] Indication: DVT HISTORY: DVT. PROCEDURES: Venous duplex imaging was performed in bilateral lower extremities. The following venous structures were evaluated: common femoral vein, profunda vein, proximal portion of the greater saphenous vein, superficial femoral vein, and the popliteal vein. In addition, the posterior tibial and peroneal trunk were evaluated. Serial compression, augmentation maneuvers, and spectral Doppler flow evaluation were performed. FINDINGS: Normal 2-D Doppler and augmentation and compressibility throughout the lower extremity venous structures. Additional imaging through the proximal calf veins also reveals no thrombus. Limited evaluation of the greater saphenous vein is patent with no thrombus.. CONCLUSIONS No evidence of right lower extremity DVT. No evidence of left lower extremity DVT. Uriel Em MD (Electronically Signed) Final Date: 27 September 2020 15:51 S
--- NOTE | 2020-09-27 12:50 | XR_ITS ---
WS: [id number] Left hip, AP and frog-leg views, 09/27/2020 Clinical Data: fall/pain Comparison: None. Findings: No fractures or dislocations are seen. The hip joint is intact. The soft tissues are not remarkable. The adjacent pelvis is normal. XR/XR hip LT 2-3V wo/w pel* [id number] Impression: Negative left hip.
[2020-09-27 13:44] LABS: Basophils # 0.1 10^3/uL (0.0-0.1); Basophils % 0.6 %; Eosinophils # 0.3 10^3/uL (0.0-0.8); Hematocrit 49.7 % (42.0-52.0); Hemoglobin 15.6 g/dL (11.7-16.6); Lymphocytes # 2.1 10^3/uL (0.8-4.8); Mean Corpuscular HGB Conc 31.4 g/dL (30.0-36.0); Mean Corpuscular Hemoglobin 28.6 pg (28.0-34.0); Mean Corpuscular Volume 91.2 fL (80-94); Monocytes # 1.1 10^3/uL (0.2-0.9); Monocytes % 10.4 %; Neutrophils # 6.87 10^3/uL (1.8-7.7); Neutrophils % 65.5 %; Nucleated Red Blood Cells % 0 %; Platelet Count 308 10^3/cmm (130-400); Red Blood Count 5.45 10^6/uL (4.1-5.3); Red Cell Distribution Width 14.5 % (12.1-15.1); White Blood Count 10.5 10^3/uL (4.0-10.0)
[2020-09-27 13:59] LABS: D Dimer 0.67 ug/mIFEU (0-0.59)
[2020-09-27 14:07] LABS: Lactate (Lactic Acid level) 1.5 mmol/L (0.5-2.2)
[2020-09-27 14:08] VITALS: BP 146/106; PULSE 74; RESP 20; O2SAT 98
[2020-09-27 14:08] LABS: Troponin(5th) Baseline 45 ng/L (0-15)
[2020-09-27 14:13] LABS: Alanine Aminotransferase 13 U/L (0-41); Albumin Level 4.3 g/dL (3.5-5.2); Alkaline Phosphatase 88 IU/L (40-130); Anion Gap 14.6 (5-19); Aspartate Amino Transferase 11 U/L (0-40); Blood Urea Nitrogen 23 mg/dL (8-23); Calcium 9.5 mg/dL (8.5-10.5); Carbon Dioxide 31 mmol/L (22-29); Chloride 100 mmol/L (98-107); Globulin 2.6 g/dL (1.3-4.6); Glomerular Filtration Rate 136.1 mL/min (90-130); Glucose 85 mg/dL (65-115); NT Pro B Type Natriuretic Pept 120 pg/mL (0-125); Osmolality Calculated 297 mOsm/kg (285-295); Potassium 3.6 mmol/L (3.5-5.1); Sodium 142 mmol/L (136-145); Total Bilirubin 0.6 mg/dL (0.15-1.2); Total Protein 6.9 g/dL (6.6-8.7)
--- NOTE | 2020-09-27 14:39 | PC.NURSE ---
pt has refused 2nd troponin level to be drawn. ER physician notified.
--- NOTE | 2020-09-27 14:43 | W.ED.EXTPRO ---
HPI - Extremity Problem General: Chief complaint: Extremity Injury, Lower Stated complaint: HIP PAIN Time Seen by Provider: 09/27/20 12:27 History of Present Illness: HPI Narrative: The patient is a 65-year-old male with past medical history lymphedema to bilateral lower extremities. He comes to the ER complaining of left knee and hip pain after he fell off his bed landing on his left side approximately 3 weeks ago. He had x-rays done at [facility] in [place] yesterday which were normal but he comes here because he continues to have pain. He said he usually is able to get around however with this pain that is limiting his ability to get around and he is sleeping in a chair because when he lays flat it hurts him. He says he wants a referral to orthopedic surgeons. The swelling in his legs is chronic and he wraps them daily. He is noncompliant with his Lasix and says he has not taken it today. Offered him Lasix in the ER and he declined it. Offered him admission as well to relieve the swelling and he declined that saying he can go home and take his Lasix. He also refused repeat troponin. He is not complaining of chest pain so this is likely his baseline. MD Complaint: joint pain Onset (ago): week(s) (3) Pain Consistency: constant Location: left and knee Quality: sharp Radiation: none Relieving factors: nothing Exacerbating factors: weight bearing and walking Associated symptoms: Reports no associated symptoms; Deny chest pain or rash Review of Systems General: Reports: 10 or more systems reviewed and unremarkable except in HPI and below Const: Denies: fatigue Eyes: Denies: change in vision, blurry vision or eye redness ENMT: Denies: throat pain, swelling of lips/tongue, ear or mastoid pain or nasal congestion Card: Denies: chest pain, palpitations, irregular heart rhythm, edema, dyspnea on exertion or orthopnea Resp: Denies: dyspnea, productive cough or non-productive cough GI: Denies: abdominal pain, diarrhea or GI cramping : Denies: flank pain, urinary frequency or urinary urgency Musc: Reports: joint pain; Denies: neck pain, back pain, extremity pain, joint redness, limited range of motion or muscle weakness Skin/Breast: Denies: rash, pruritus, erythema, skin pain or skin tenderness Neuro: Denies: headache(s), numbness in extremities, weakness in extremities, sensory changes, difficulty walking, dizziness, confusion or Slurred speech present Psych: Denies: anxiety or depression Endo: Denies: polyuria All/Imm: Denies: urticaria, throat swelling or tongue swelling PFSH ED PFSH: Medical History (Updated 09/27/20 @ 15:03 by Raymond Godfrey MD) Prostate cancer Pulmonary embolism -noted small PE in LLL on CTA PE; no evidence of cor pulmonale -on bridging anticoagulation with Lovenox and Coumadin; INR suptherapeutic. Patient has been refusing the injections. Has had issues with compliance so will switch to Eliquis -daily INR -risk of fall with hx of EtOH abuse; may not be a good candidate for longer term anticoagulation Surgical History H/O prostatectomy History of umbilical hernia repair Status post colonoscopy Physical Exam Const: COMMON NORMALS: no acute distress, average body habitus, patient oriented x3, no limitations, healthy appearing, alert and well nourished GENERAL APPEARANCE: cooperative, comfortable, well kempt and well developed ORIENTATION/CONSCIOUSNESS: Yes awake, Yes oriented to person, Yes oriented to place and Yes oriented to time HENMT: COMMON NORMALS: normocephalic, external ears normal and Normal external nose present HEAD & SCALP: normal to inspection and normocephalic NOSE: Normal external nose present EXTERNAL EAR: Yes external ears normal MOUTH: Normal oral and palatal mucosa present THROAT: posterior oropharynx normal Eye: COMMON NORMALS: Equal, round and reactive pupils present and EOMs intact bilaterally GENERAL EYE: appearance normal, both eyes and all related structures PUPIL: Yes Equal, round and reactive pupils present Neck/C-Spine: COMMON NORMALS: full ROM, no lymphadenopathy, no meningeal signs and no JVD GENERAL: Yes normal visual inspection Lymph: LYMPHATIC: no lymphadenopathy noted Chest: COMMONS NORMALS: normal inspection of the chest and normal palpation of entire chest wall Resp: COMMON NORMALS: normal respiratory effort, No retractions, No use of accessory muscles, clear to auscultation bilaterally and percussion normal EFFORT & INSPECTION: Yes able to speak in complete sentences AUSCULTATION: clear to auscultation bilaterally PERCUSSION: percussion normal Cardio: COMMON NORMALS: no JVD, regular rate, regular rhythm, S1 normal heart sound present, S2 normal heart sound present and Peripheral pulses 2+ throughout RATE: regular rate RHYTHM: regular rhythm HEART SOUNDS: S1 normal heart sound present and S2 normal heart sound present PERIPHERAL PULSES: Peripheral pulses 2+ throughout GI: COMMON NORMALS: Normal to inspection, nondistended, normoactive bowel sounds present, Soft to palpation, non-tender and no masses INSPECTION: Yes normal to inspection PALPATION: Yes Soft to palpation : COMMON NORMALS: Yes no CVA tenderness BLADDER/KIDNEY EXAM: Yes no CVA tenderness Back/Pelvis: COMMON NORMALS: no CVA tenderness, thoracic and lumbar spine normal to inspection, no thoracic nor lumbar tenderness and thoraco-lumbar ROM normal Extremity: COMMON NORMALS: normal to inspection, full ROM, capillary refill normal and no joint enlargement NARRATIVE EXTREMITY EXAM: Bilateral lower extremities with chronic lymphedema and skin thickening. He has been dealing with this for years and because he stays upright all the time he wraps his legs. He is noncompliant with his Lasix and has not taken it today as well. He declined IV Lasix in the ER GENERAL: Yes normal exam except as noted Neuro: COMMON NORMALS: patient oriented x3, CN's II-XII intact bilaterally, moves all extremities, no focal motor deficits, no sensory deficits noted and gait normal SENSORIUM/ORIENTATION: Yes alert, Yes oriented to person, Yes oriented to place and Yes oriented to time MENINGEAL SIGNS: Yes no meningeal signs Psych: COMMON NORMALS: mental status grossly normal, Normal thought process present, cooperative, normal affect and speech normal APPEARANCE: Yes well kempt ATTITUDE: Yes calm SPEECH: Yes normal speech THOUGHT PROCESS: Normal thought process present Skin: COMMON NORMALS: no rashes or lesions noted GENERAL SKIN EXAM: no rashes or lesions noted Course Vital Signs: Vital signs: Vital Signs Temperature 97.5 F L 09/27/20 12:23 Pulse Rate 74 09/27/20 14:08 Respiratory Rate 20 H 09/27/20 14:08 Blood Pressure 146/106 09/27/20 14:08 Pulse Oximetry 98 09/27/20 14:08 MDM - Extremity (Nontraumatic) MDM Narrative: Medical decision making narrative: The patient comes for hip and knee pain after a fall 3 weeks ago. He is obese and has severe chronic lymphedema to his lower extremities. These are likely contributing factors adding to his pain. Gave him a referral to Ortho across the street at his request. He can control his pain with Tylenol at home. He declined repeat troponin and IV Lasix in the ER. I offered him admission as well to help get fluid off and he declined. He is likely noncompliant with his Lasix as well as he does not like to urinate which is a contributing factor to why the swelling periodically gets worse. Return to ER at any time with worsening symptoms Lab Data: Labs: Lab Results 09/27/20 09/27/20 09/27/20 Range/Units 13:36 13:36 13:36 WBC 10.5 H (4.0-10.0) 10^3/ uL RBC 5.45 H (4.1-5.3) 10^6/u L Hgb 15.6 (11.7-16.6) g/dL Hct 49.7 (42.0-52.0) % MCV 91.2 (80-94) fL MCH 28.6 (28.0-34.0) pg MCHC 31.4 (30.0-36.0) g/dL RDW 14.5 (12.1-15.1) % Plt Count 308 (130-400) 10^3/c mm MPV 9.0 (7.4-10.4) fL Neut % (Auto) 65.5 % Lymph % (Auto) 20.0 % [place] % (Auto) 10.4 % Eos % (Auto) 3.0 % Baso % (Auto) 0.6 % Neut # (Auto) 6.87 (1.8-7.7) 10^3/u L Lymph # (Auto) 2.1 (0.8-4.8) 10^3/u L [place] # (Auto) 1.1 H (0.2-0.9) 10^3/u L Eos # (Auto) 0.3 (0.0-0.8) 10^3/u L Baso # (Auto) 0.1 (0.0-0.1) 10^3/u L Nucleated RBC % (a uto) 0 % Nucleated RBCs # 0.0 /100WBC D-Dimer 0.67 H (0-0.59) ug/mIFE U Sodium 142 (136-145) mmol/L Potassium 3.6 (3.5-5.1) mmol/L Chloride 100 (98-107) mmol/L Carbon Dioxide 31 H (22-29) mmol/L Anion Gap 14.6 (5-19) BUN 23 (8-23) mg/dL Creatinine 0.6 L (0.7-1.2) mg/dL GFR Calculation 136.1 H (90-130) mL/min Glucose 85 (65-115) mg/dL Calculated Osmolal ity 297 H (285-295) mOsm/k g Lactate (0.5-2.2) mmol/L Calcium 9.5 (8.5-10.5) mg/dL Total Bilirubin 0.6 (0.15-1.2) mg/dL AST 11 (0-40) U/L ALT 13 (0-41) U/L Alkaline Phosphata se 88 (40-130) IU/L Troponin T Baselin e (0-15) ng/L NT-Pro-B Natriuret Pep 120 (0-125) pg/mL Total Protein 6.9 (6.6-8.7) g/dL Albumin 4.3 (3.5-5.2) g/dL Globulin 2.6 (1.3-4.6) g/dL 09/27/20 09/27/20 Range/Units 13:36 13:36 WBC (4.0-10.0) 10^3/ uL RBC (4.1-5.3) 10^6/u L Hgb (11.7-16.6) g/dL Hct (42.0-52.0) % MCV (80-94) fL MCH (28.0-34.0) pg MCHC (30.0-36.0) g/dL RDW (12.1-15.1) % Plt Count (130-400) 10^3/c mm MPV (7.4-10.4) fL Neut % (Auto) % Lymph % (Auto) % [place] % (Auto) % Eos % (Auto) % Baso % (Auto) % Neut # (Auto) (1.8-7.7) 10^3/u L Lymph # (Auto) (0.8-4.8) 10^3/u L [place] # (Auto) (0.2-0.9) 10^3/u L Eos # (Auto) (0.0-0.8) 10^3/u L Baso # (Auto) (0.0-0.1) 10^3/u L Nucleated RBC % (a uto) % Nucleated RBCs # /100WBC D-Dimer (0-0.59) ug/mIFE U Sodium (136-145) mmol/L Potassium (3.5-5.1) mmol/L Chloride (98-107) mmol/L Carbon Dioxide (22-29) mmol/L Anion Gap (5-19) BUN (8-23) mg/dL Creatinine (0.7-1.2) mg/dL GFR Calculation (90-130) mL/min Glucose (65-115) mg/dL Calculated Osmolal ity (285-295) mOsm/k g Lactate 1.5 (0.5-2.2) mmol/L Calcium (8.5-10.5) mg/dL Total Bilirubin (0.15-1.2) mg/dL AST (0-40) U/L ALT (0-41) U/L Alkaline Phosphata se (40-130) IU/L Troponin T Baselin e 45 H (0-15) ng/L NT-Pro-B Natriuret Pep (0-125) pg/mL Total Protein (6.6-8.7) g/dL Albumin (3.5-5.2) g/dL Globulin (1.3-4.6) g/dL Discharge Plan Discharge Patient Disposition: Home Clinical Impression: Chronic knee pain, Chronic hip pain Condition: Stable Prescriptions: New cyclobenzaprine 5 mg tablet 5 mg PO TID PRN (Reason: muscle spasm) Qty: 12 RF: 0 No Action amlodipine 10 mg Tablet 10 mg PO QAM RF: 0 aspirin 325 mg Tablet 325 mg PO DAILY RF: 0 furosemide 80 mg tablet 80 mg PO QAM RF: 0 gabapentin 300 mg capsule 300 mg PO TID RF: 0 Discharge Orders: Discharge ED (Routine); Ordered 09/27/20 Ordered By: Raymond Godfrey Patient Instructions: Knee Pain (ED), Arthralgia (ED), Opioid Safety Activity Restrictions/Additional Instructions: Hip and knee pain related to a fall a few weeks ago. Please take Tylenol for this and you may take Flexeril to help with your symptoms as well. Please be aware this might make you slightly woozy and make it easier to fall also please try to take this medication at night to help your pain and it will also help you sleep. Return to the ER with worsening symptoms otherwise follow-up with your primary care physician to discuss further in a couple days. Also continue to take your Lasix at home as it is important and will help you get the fluid off of your legs. Please ask your primary care physician to give you a physical therapy referral to help with your knee and hip pain as well. 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
--- NOTE | 2020-09-27 14:49 | ECG_ITS ---
[facility] Test Date: 2020-09-27 Pat Name: Satish Jones Department: Room: Gender: Male Pediatric Np: : 1955 Requested By: Raymond Godfrey Order Number: [id number] Bueno MD: Sahil Turcios M.D. Measurements Intervals [place] Rate: 79 P: 65 CT: 173 QRS: 267 QRSD: 107 T: 0 QT: 210 QTc: 241 Interpretive Statements SINUS RHYTHM WITH OCCASIONAL ECTOPIC PREMATURE COMPLEXES INCOMPLETE RIGHT BUNDLE BRANCH BLOCK [90+ ms QRS DURATION, TERMINAL R IN V1/V2, 40+ ms S IN I/aVL/V4/V5/V6] RIGHT VENTRICULAR HYPERTROPHY [SOME/ALL OF: PROMINENT R IN V1, LATE TRANSITION, RAD, VERÓNICA, SSS] TYPE 3 BRUGADA PATTERN (NON-DIAGNOSTIC) [COVED/SADDLEBACK ST ELEVATION > 0.1mV IN 2 OF V1-3] Compared to ECG 07/05/2019 09:14:40 Incomplete right bundle-branch block now present Sinus bradycardia no longer present Myocardial infarct finding still present Electronically Signed On 09-27-2020 18:34:59 CDT by Sahil Turcios M.D. [id number]
[2020-09-27 15:12] VITALS: BP 147/102; PULSE 76; RESP 18; O2SAT 98
--- NOTE | 2020-09-30 11:59 | DCPLANNER ---
road production general manager had message to schedule a follow up appointment for patient with ortho. road production general manager called the ortho clinic, spoke with Courtney, gave clinic patients information. road production general manager was told that patients information would be printed and reviewed. Clinic will call patient with appointment information.
--- NOTE | 2020-10-02 15:52 | DCPLANNER ---
environmental manager called the ortho clinic to confirm if a follow up appointment had been scheduled for patient. environmental manager spoke with Valeria, was told that patient is to follow up with primary care physician. Clinic called patient and informed patient of this.
== END 2020-09-27 15:14 | disposition home or self-care (01) ==
PROVIDERS: Emergency Provider Family Medicine; PCP Nurse Practitioner Family
DX: G89.29 Other chronic pain (principal); M25.562 Pain in left knee; M25.552 Pain in left hip; Z79.82 Long term (current) use of aspirin; Z85.46 Personal history of malignant neoplasm of prostate
CPT/HCPCS: 73502; 73562; 80053; 83605; 83880; 84484; 85025; 85378; 93005; 93970; 99283

== ENCOUNTER 2022-09-25 08:31 | Outpatient (CLI) | payer BC, SELFPAY ==
--- NOTE | 2022-09-25 09:01 | US_ITS ---
WS: [id number] ULTRASOUND GUIDED BIOPSY LEFT INGUINAL LYMPH NODE. HISTORY: ABNORMAL CT ABD/ENLARGED LYMPH NODES Procedure, risks, and complications are explained to the patient. Consent was obtained. Skin is clean sed with ChloraPrep and anesthetized with 1% buffered lidocaine. Minimally prominent lymph node is noted in the LEFT inguinal canal. This lymph node is only very mini melony prominent. Normal fatty hilum. This lymph node will be targeted for biopsy as requested. Small dermatome is made. Multiple core biopsies are performed with a 20-gauge Temno needle. 2 samples are placed in RPMI. 2 additional core biopsies are placed in formalin. No complications are encounte red. Patient will be discharged. Follow-up for any complications. US/US biopsy lymph node [id number] IMPRESSION: 1. Uncomplicated small core biopsy of a LEFT inguinal lymph node. This lymph n ode was only minimally abnormal. Specimen is placed in RPMI and formalin. 2. No complications encountered.
[2022-09-28 13:30] LABS: Lymphoma Profile (BBPL) See Report
== END 2022-09-25 08:32 | disposition home or self-care (01) ==
PROVIDERS: PCP Nurse Practitioner Family; Visit Provider Nurse Practitioner Family
DX: R59.9 Enlarged lymph nodes, unspecified (principal)
CPT/HCPCS: 38505; 76942; 88184; 88185; 88305; 88342

== ENCOUNTER 2023-01-03 19:34 | Inpatient (IN) | payer MEDICARE, SELFPAY ==
[2023-01-03 19:35] VITALS: BMI 52.4
[2023-01-03 19:41] VITALS: BP 129/78; PULSE 100; RESP 16; TEMP 36.7; O2SAT 97
--- NOTE | 2023-01-03 19:48 | CTR_ITS ---
PROCEDURE INFORMATION: Exam: CT Abdomen And Pelvis With Contrast Exam date and time: 01/03/2023 8:51 PM Age: 67 years old Clinical indication: Abdominal pain; Generalized; Prior surgery; Surgery date: 6+ months; Surgery type: Hernia repair. Prostatectomy; Patient HX: C/O diffuse abd and back pain. History of prostate cancer. ; Additional info: Back pain, cellulitis b le TECHNIQUE: Imaging protocol: Computed tomography of the abdomen and pelvis with contrast. Radiation optimization: All CT scans at this facility use at least one of these dose optimization techniques: automated exposure control; mA and/or kV adjustment per patient size (includes targeted exams where dose is matched to clinical indication); or iterative reconstruction. Contrast material: OMNI 350; Contrast volume: 100 ml; Contrast route: INTRAVENOUS (IV); REPORTING DATA: Dictated by: MASOOD CABRERA on [facility] Aug 01, 2022 1:57:39 PM MANAGER ORGANIZATIONAL Count of CT and Cardiac NM exams in prior 12 months: This patient has received 2 known CTs and 0 known cardiac nuclear medicine studies in the 12 months prior to the current study. COMPARISON: CT abdomen pelvis w con* [id number] 08/28/2022 9:51 AM RADIATION DOSE METRICS: Total DLP (mGy-cm): 953.21 FINDINGS: Diaphragm: Small hiatal hernia. Liver: The hepatic parenchyma is diffusely hypoattenuating. Findings are suggestive of hepatic steatosis which can be the result of a variety toxic, ischemic, and infectious insults to the liver. No focal intrahepatic lesions are seen. Gallbladder and bile ducts: No gallbladder wall thickening. No calcified stones. No ductal dilation. Pancreas: No intraparenchymal lesions are seen. No ductal dilation. Spleen: No intraparenchymal lesions are seen. No splenomegaly. Adrenal glands: No mass. Kidneys and ureters: No solid intraparenchymal soft tissue lesion. No hydronephrosis. Right renal inferior pole low attenuating cystic structure measuring up to 5.1 cm in diameter is most compatible with a benign cyst. Other smaller intermediate to low attenuating cystic structures are re-identified and appear similar to the prior exam and likely represent benign cysts the however are incompletely and suboptimally evaluated on this single phase exam. Stomach and bowel: No pathologic bowel dilatation. No obstruction. Appendix: No evidence of appendicitis. Intraperitoneal space: No free air. No abnormal walled-off fluid collection. Vasculature: Atheromatous changes are seen throughout the visualized portion of the aorta and its major branching vessels. Lymph nodes: Redemonstration of multiple enlarged inguinal, iliac chain, and periaortic lymph nodes. Urinary bladder: There is a 1.4 cm area of increased attenuation at the left posterolateral margin of the urinary bladder in the region of the left UVJ/trigone on series 4, image 88. Reproductive: Operative changes of prostatectomy. Bones/joints: No acute fracture. Degenerative changes of the spine with bridging anterior osteophytes in generalized preservation of the intervertebral disc space suggestive of DISH. Soft tissues: Diastasis recti with adjacent soft tissue thickening compatible with hernia repair mesh. CT/CT abdomen pelvis w con* [id number] IMPRESSION: 1. There is a 1.4 cm area of increased attenuation at the left posterolateral margin of the urinary bladder in the region of the left UVJ/trigone on series 4, image 88. Findings are concerning for malignancy and/or metastatic disease. Direct visualization is suggested for further evaluation if clinically indicated. 2. Redemonstration of multiple enlarged inguinal, iliac chain, and periaortic lymph nodes. Findings are concerning for metastatic disease however other etiologies including lymphoma are also consideration. Correlate and follow-up as clinically indicated. 3. The hepatic parenchyma is diffusely hypoattenuating. Findings are compatible with hepatic steatosis which can be the result of a variety toxic, ischemic, and infectious insults to the liver, correlate and follow-up as clinically indicated. 4. Other chronic/incidental findings as described above.
[2023-01-03] MEDS: morphine 4 mg/mL SDV 1 mL IVP (20:08)
[2023-01-03] MEDS: piperacillin-tazobactam 4.5 GM in sodium chloride 0.9% (plus) 50 ML IV (20:09)
[2023-01-03] MEDS: ondansetron 2 mg/ML SDV 2 mL 4 MG IVP (20:09)
[2023-01-03 20:13] LABS: Basophils # 0.1 10^3/uL (0.0-0.1); Basophils % 1.1 %; Eosinophils # 0.2 10^3/uL (0.0-0.8); Eosinophils % 2.2 %; Hematocrit 48.5 % (42.0-52.0); Hemoglobin 16.1 g/dL (11.7-16.6); Lymphocytes % 21.1 %; Mean Corpuscular HGB Conc 33.2 g/dL (30.0-36.0); Mean Corpuscular Hemoglobin 29.2 pg (28.0-34.0); Mean Platelet Volume 7.8 fL (7.4-10.4); Monocytes # 0.8 10^3/uL (0.2-0.9); Monocytes % 7.9 %; Neutrophils # 6.47 10^3/uL (1.8-7.7); Neutrophils % 66.8 %; Nucleated Red Blood Cells % 0 %; Platelet Count 363 10^3/cmm (130-400); Red Blood Count 5.51 10^6/uL (4.1-5.3); Red Cell Distribution Width 14.3 % (12.1-15.1); White Blood Count 9.7 10^3/uL (4.0-10.0)
[2023-01-03 20:28] LABS: Alanine Aminotransferase 10 U/L (0-41); Albumin Level 3.8 g/dL (3.5-5.2); Alkaline Phosphatase 121 U/L (40-130); Anion Gap 19.1 (5-19); Aspartate Amino Transferase 20 U/L (0-40); Blood Urea Nitrogen 13 mg/dL (8-23); C Reactive Protein 52.3 mg/L (0.0-4.9); Calcium 8.6 mg/dL (8.5-10.5); Carbon Dioxide 23 mmol/L (22-29); Chloride 90 mmol/L (98-107); Globulin 4.4 g/dL (1.3-4.6); Glomerular Filtration Rate 113.2 mL/min (90-130); Glucose 83 mg/dL (65-115); Osmolality Calculated 267 mOsm/kg (285-295); Potassium 3.1 mmol/L (3.5-5.1); Sodium 129 mmol/L (136-145); Total Bilirubin 0.6 mg/dL (0.15-1.2); Total Protein 8.2 g/dL (6.6-8.7)
[2023-01-03 20:35] LABS: Lactic Sepsis W/Reflex 4.2 mmol/L (0.5-2.2)
--- NOTE | 2023-01-03 20:41 | PC.NURSE ---
LACTIC IS 4.2
[2023-01-03] MEDS: iohexol 350 mg/mL 500 mL Btl (per mL) IV (21:02)
[2023-01-03] MEDS: midazolam 1 mg/mL INJ 2 mL 2 MG IVP (21:04)
[2023-01-03 21:19] VITALS: BP 153/107; PULSE 130; RESP 28; O2SAT 96
[2023-01-03 21:52] VITALS: BP 145/104; PULSE 116; O2SAT 86
[2023-01-03 21:56] LABS: Reflex Lactate Order REFLEX LACTIC ORDERD
[2023-01-03 22:10] VITALS: PULSE 113; RESP 12; O2SAT 97
--- NOTE | 2023-01-03 22:27 | W.ED.EXTPRO ---
HPI - Extremity Problem General: Chief complaint: Extremity Problem,Nontraumatic Stated complaint: Cellulitis Time Seen by Provider: 01/03/23 19:37 Source: patient History of Present Illness: 67-year-old male patient arrives by ambulance. His main complaint is not that of lower extremity swelling and redness, its low back pain. He presents with low back pain. He was seen at an outside facility 2 days ago, and given pain medication, which he says did not help. He notes the pain radiates to his legs. He does have chronic swelling, cellulitis, and weeping with malodorous drainage to his legs. This is not new for him. MD Complaint: extremity pain, extremity swelling and other Onset (ago): week(s) Pain Consistency: constant Location: lower extremity Associated symptoms: Deny chest pain or fever(s) Context: other Review of Systems Const: Denies: fever(s) Card: Denies: chest pain Resp: Denies: dyspnea GI: Denies: vomiting PFSH ED PFSH: Medical History (Updated 01/06/23 @ 02:34 by Hugo Palmer DO) Prostate cancer Pulmonary embolism -noted small PE in LLL on CTA PE; no evidence of cor pulmonale -on bridging anticoagulation with Lovenox and Coumadin; INR suptherapeutic. Patient has been refusing the injections. Has had issues with compliance so will switch to Eliquis -daily INR -risk of fall with hx of EtOH abuse; may not be a good candidate for longer term anticoagulation Surgical History H/O prostatectomy History of umbilical hernia repair Status post colonoscopy Physical Exam Const: GENERAL APPEARANCE: cooperative, ill appearing and frail appearing HENMT: COMMON NORMALS: normocephalic, atraumatic and Normal external nose present HEAD & SCALP: normocephalic and atraumatic FACE & SINUS: normal facial exam NOSE: Normal external nose present Eye: COMMON NORMALS: Equal, round and reactive pupils present and EOMs intact bilaterally PUPIL: Yes Equal, round and reactive pupils present Neck/C-Spine: GENERAL: Yes trachea midline Chest: CHEST: Yes Symmetrical chest wall rise Resp: COMMON NORMALS: clear to auscultation bilaterally EFFORT & INSPECTION: Yes tachypneic AUSCULTATION: clear to auscultation bilaterally Cardio: COMMON NORMALS: regular rate and regular rhythm RATE: regular rate RHYTHM: regular rhythm GI: COMMON NORMALS: Normal to inspection, nondistended, normoactive bowel sounds present Extremity: NARRATIVE EXTREMITY EXAM: Bilateral lower extremity edema with chronic Cellulitis, stasis dermatitis, and weeping. There is a malodorous drainage. No definite Abscess present Neuro: LUISA COMA SCALE: document GCS findings Luisa coma scale eye opening: Spontaneous Luisa coma scale verbal response: Confused [place] coma scale motor response: Obey commands [place] coma scale total score: 14 Course Vital Signs: Vital signs: Vital Signs Temperature 97.3 F L 01/06/23 00:00 Pulse Rate 84 01/06/23 00:00 Respiratory Rate 16 01/06/23 00:56 Blood Pressure 156/81 01/06/23 00:00 Pulse Oximetry 95 01/06/23 00:00 Oxygen Delivery Me thod Room Air 01/05/23 20:00 Oxygen Flow Rate 4 01/05/23 06:00 Fraction of Inspir ed Oxygen 4 01/05/23 04:00 MDM - Extremity (Nontraumatic) Medical Decision Making 67 year old male with bilateral lower extremity swelling, redness, malodorous drainage, and pain. This is a chronic condition, but has reached a point where inpatient treatment will be necessary. He will require Iv antibiotics, wound care, debridement, an ongoing treatment. This patient lives alone, and will likely require extended skilled care nursing following admission. CTs to the lower extremities are pending. CT of the lumbar spine/ abdomen/pelvis does not show an acute process. The patient is unable to care for himself. He'll be admitted. Hospitalists is notified and will see the patient. Lab Data 01/05/23 02:30 01/05/23 02:30 Radiology Impressions Abdomen/Pelvis CT 01/03/23 19:48 IMPRESSION: 1. There is a 1.4 cm area of increased attenuation at the left posterolateral margin of the urinary bladder in the region of the left UVJ/trigone on series 4, image 88. Findings are concerning for malignancy and/or metastatic disease. Direct visualization is suggested for further evaluation if clinically indicated. 2. Redemonstration of multiple enlarged inguinal, iliac chain, and periaortic lymph nodes. Findings are concerning for metastatic disease however other etiologies including lymphoma are also consideration. Correlate and follow-up as clinically indicated. 3. The hepatic parenchyma is diffusely hypoattenuating. Findings are compatible with hepatic steatosis which can be the result of a variety toxic, ischemic, and infectious insults to the liver, correlate and follow-up as clinically indicated. 4. Other chronic/incidental findings as described above. Chest X-Ray 01/04/23 13:59 IMPRESSION: Pulmonary hypoinflation without acute findings. Chest CTA 01/05/23 08:02 IMPRESSION: 1. No pulmonary artery embolism identified. 2. Bilateral lower lobe pulmonary partial/subsegmental atelectasis. 3. Coronary atherosclerosis. 4. Recommend nonemergent thyroid sonography for further evaluation of a right thyroid nodule. Tibia/Fibula X-Ray 01/05/23 16:15 IMPRESSION: 1. Diffuse soft tissue swelling. Cellulitis is likely. Clinical correlation is recommended. 2. No destructive bony process identified. Laboratory Results WBC 9.7 10^3/uL (4.0-10.0) 01/03/23 20:04 RBC 5.51 10^6/uL (4.1-5.3) H 01/03/23 20:04 Hgb 16.1 g/dL (11.7-16.6) 01/03/23 20:04 Hct 48.5 % (42.0-52.0) 01/03/23 20:04 MCV 88.0 fl (80-94) 01/03/23 20:04 MCH 29.2 pg (28.0-34.0) 01/03/23 20:04 MCHC 33.2 g/dL (30.0-36.0) 01/03/23 20:04 RDW 14.3 % (12.1-15.1) 01/03/23 20:04 Plt Count 363 10^3/cmm (130-400) 01/03/23 20:04 MPV 7.8 fL (7.4-10.4) 01/03/23 20:04 Neut % (Auto) 66.8 % 01/03/23 20:04 Lymph % (Auto) 21.1 % 01/03/23 20:04 Becker % (Auto) 7.9 % 01/03/23 20:04 Eos % (Auto) 2.2 % 01/03/23 20:04 Baso % (Auto) 1.1 % 01/03/23 20:04 Neut # (Auto) 6.47 10^3/uL (1.8-7.7) 01/03/23 20:04 Lymph # (Auto) 2.0 10^3/uL (0.8-4.8) 01/03/23 20:04 Becker # (Auto) 0.8 10^3/uL (0.2-0.9) 01/03/23 20:04 Eos # (Auto) 0.2 10^3/uL (0.0-0.8) 01/03/23 20:04 Baso # (Auto) 0.1 10^3/uL (0.0-0.1) 01/03/23 20:04 Nucleated RBC % (auto) 0 % 01/03/23 20:04 Nucleated RBCs # 0.0 /100WBC 01/03/23 20:04 Specimen Type Arterial 01/04/23 05:03 Sample Site Brachial, right 01/04/23 05:03 ABG pH 7.21 (7.35-7.45) L 01/04/23 05:03 ABG pCO2 66.6 mmHg (35-45) H* 01/04/23 05:03 ABG pO2 87.5 mmHg (80.0-100.0) 01/04/23 05:03 ABG HCO3 26.4 mmol/L (22-26) H 01/04/23 05:03 ABG Base Excess -3.2 mmol/L (-2.0-2.0) L 01/04/23 05:03 Toro Test N/a 01/04/23 05:03 Hematocrit 47.3 % (42-52) 01/04/23 05:03 O2 Delivery Device Oxy mask 01/04/23 05:03 O2 Liters/Min 7.0 % 01/04/23 05:03 FiO2 50.0 % 01/04/23 05:03 Radiologic Electronic Specialist ID Alewe 01/04/23 05:03 Sodium 129 mmol/L (136-145) L 01/03/23 20:04 Potassium 3.1 mmol/L (3.5-5.1) L 01/03/23 20:04 Chloride 90 mmol/L (98-107) L 01/03/23 20:04 Carbon Dioxide 23 mmol/L (22-29) 01/03/23 20:04 Anion Gap 19.1 (5-19) H 01/03/23 20:04 BUN 13 mg/dL (8-23) 01/03/23 20:04 Creatinine 0.7 mg/dL (0.7-1.2) 01/03/23 20:04 GFR Calculation 113.2 mL/min (90-130) 01/03/23 20:04 Glucose 83 mg/dL (65-115) 01/03/23 20:04 Estimat Average Glucose 126 01/03/23 20:04 Hemoglobin A1c 6.0 % (4.0-6.0) 01/03/23 20:04 Calculated Osmolality 267 mOsm/kg (285-295) L 01/03/23 20:04 Lactic Acid 4.2 mmol/L (0.5-2.2) H* 01/03/23 20:04 Calcium 8.6 mg/dL (8.5-10.5) 01/03/23 20:04 Total Bilirubin 0.6 mg/dL (0.15-1.2) 01/03/23 20:04 AST 20 U/L (0-40) 01/03/23 20:04 ALT 10 U/L (0-41) 01/03/23 20:04 Alkaline Phosphatase 121 U/L (40-130) 01/03/23 20:04 C-Reactive Protein 52.3 mg/L (0.0-4.9) H 01/03/23 20:04 NT-Pro-B Natriuret Pep 142 pg/mL (0-125) H 01/03/23 20:04 Total Protein 8.2 g/dL (6.6-8.7) 01/03/23 20:04 Albumin 3.8 g/dL (3.5-5.2) 01/03/23 20:04 Globulin 4.4 g/dL (1.3-4.6) 01/03/23 20:04 Triglycerides 169 mg/dL (0-150) H 01/03/23 20:04 Cholesterol 216 mg/dL (0-200) H 01/03/23 20:04 LDL Cholesterol, Calc 142 mg/dL (50-129) H 01/03/23 20:04 HDL Cholesterol 40 mg/dL (60-100) L 01/03/23 20:04 LDL/HDL Ratio 3.55 RATIO (0.00-3.22) H 01/03/23 20:04 Cholesterol/HDL Ratio 5.40 mg/dL (1.0-5.00) H 01/03/23 20:04 Procalcitonin 0.09 ng/mL (0-0.5) 01/03/23 20:04 TSH 0.81 uIU/mL (0.27-4.20) 01/03/23 20:04 Urine Color Dark yellow (Yellow) 01/04/23 01:20 Urine Appearance Sl hazy (CLEAR) A 01/04/23 01:20 Urine pH 5 (5-7) 01/04/23 01:20 Ur Specific [place] 1.020 (1.005-1.030) 01/04/23 01:20 Urine Protein 2+ (Negative) H 01/04/23 01:20 Urine Glucose (UA) Norm (Normal) 01/04/23 01:20 Urine Ketones 1+ (Negative) H 01/04/23 01:20 Urine Blood 2+ (Negative) H 01/04/23 01:20 Urine Nitrate Negative (Negative) 01/04/23 01:20 Urine Bilirubin Neg (Negative) 01/04/23 01:20 Urine Urobilinogen 1 mg/dL (Negative) H 01/04/23 01:20 Ur Leukocyte Esterase Negative (Negative) 01/04/23 01:20 Urine RBC 10-15 /hpf (0-2) H 01/04/23 01:20 Urine WBC 0-4 /hpf (0-5) H 01/04/23 01:20 Ur Squamous Epith Cells 15-25 /hpf (0-5) H 01/04/23 01:20 Amorphous Sediment Not Reportable 01/04/23 01:20 Urine Bacteria 1+ /hpf (NONE) H 01/04/23 01:20 Hyaline Casts 0-4 /lpf H 01/04/23 01:20 Discharge Plan Discharge Patient Disposition: Admitted As Inpatient Admit Provider: Samantha Liu Clinical Impression: Lymphedema, Cellulitis, Lactic acidosis, Sepsis Condition: Stable Coding Level of Care Code ED Master Welder for Sharmin Stewart
--- NOTE | 2023-01-03 23:28 | PM.HP ---
Providers/Chief Complaint Primary Care Provider: KAYLAN Kim Chief Complaint: Cellulitis History of Present Illness Satish Jones is a 67 year old male With past medical history of PE, prostate cancer, alcohol abuse, sacral pressure ulcer presented to the hospital with complaint of lower extremity swelling and redness. He also has low back pain. He says he went to urgent care was given pain medication which did not help. Pain radiates down to his legs. Patient does have chronic lymphedema and used to follow-up with wound care clinic about 3 years ago in 2019 but I do not see any other visits after that in the computer. He does have a cellulitis of both bilateral lower extremities with weeping and foul-smelling drainage. When seen patient asleep, he is not very arousable. We will be checking An ABG. History was obtained from ER doc and chart, including nursing staff. On arrival to ED 145/104, respiratory 12, pulse 113, temperature 98.1, saturating 97% on room air. CT abdomen pelvis showed 1. There is a 1.4 cm area of increased attenuation at the left posterolateral margin of the urinary bladder in the region of the left UVJ/trigone on series 4, image 88. Findings are concerning for malignancy and/or metastatic disease. Direct visualization is suggested for further evaluation if clinically indicated. 2. Redemonstration of multiple enlarged inguinal, iliac chain, and periaortic lymph nodes. Findings are concerning for metastatic disease however other etiologies including lymphoma are also consideration. Correlate and follow-up as clinically indicated. 3. The hepatic parenchyma is diffusely hypoattenuating. Findings are compatible with hepatic steatosis which can be the result of a variety toxic, ischemic, and infectious insults to the liver, correlate and follow-up as clinically indicated. 4. Other chronic/incidental findings as described above WBC 9.7, hemoglobin 16.1, platelets 363, sodium 129, potassium 3.1, creatinine 0.7, lactic acid 4.2, C-reactive protein 52.3. UA showed 2+ protein, 2+ blood, 10-15 RBCs, 15-25 squamous epithelial cells, 1+ bacteria. In the ER he was given 2 mg Versed, 4 mg morphine, Zosyn x1, Zofran x1. Medications/Allergies Home Medications Medication Instructions Recorded Confirmed Last Taken Type amlodipine 10 mg tablet 10 mg PO QAM 07/28/19 09/27/20 09/27/20 06:00 History aspirin 325 mg tablet 325 mg PO DAILY 09/27/20 09/27/20 09/27/20 History cyclobenzaprine 5 mg tablet 5 mg PO TID PRN muscle spasm #12 09/27/20 Unknown Rx tabs furosemide 80 mg tablet 80 mg PO QAM 09/27/20 09/27/20 09/26/20 History gabapentin 300 mg capsule 300 mg PO TID 09/27/20 09/27/20 09/26/20 History Allergies Allergy/AdvReac Type Severity Reaction Status Date / Time No Known Allergies Allergy Verified 09/27/20 13:00 PFSH Acute PFSH: Medical History (Updated 01/04/23 @ 02:39 by Samantha Liu MD) Prostate cancer Pulmonary embolism -noted small PE in LLL on CTA PE; no evidence of cor pulmonale -on bridging anticoagulation with Lovenox and Coumadin; INR suptherapeutic. Patient has been refusing the injections. Has had issues with compliance so will switch to Eliquis -daily INR -risk of fall with hx of EtOH abuse; may not be a good candidate for longer term anticoagulation Surgical History H/O prostatectomy History of umbilical hernia repair Status post colonoscopy Vitals/I&O/Wt Last Vital Signs Temp 98.1 F 01/03/23 19:41 Pulse 113 H 01/03/23 22:10 Resp 12 01/03/23 22:10 BP 145/104 01/03/23 21:52 Pulse Ox 97 01/03/23 22:10 O2 Del Method Oxymask 01/03/23 22:10 01/03/23 01/03/23 01/04/23 14:59 22:59 06:59 Intake Total 50 / 50 Balance 50 / 50 Weight last 48 hrs Weight 147.418 kg Physical Exam Narrative: General: Alert oriented x3, patient seen laying in bed, no acute distress HEENT: Normocephalic, atraumatic, EOMI, breathing comfortably on room air Cardio: Slightly tachycardic, normal S1-S2, Respiratory: Clear to auscultation bilaterally no wheezes no rhonchi Extremities: Chronic lymphedema with venous stasis changes weeping ulcers, malodorous discharge bilateral lower extremities, onychomycosis present Data 01/03/23 20:04 01/03/23 20:04 A&P Assessment and plan (1) Pulmonary embolism: Qualifiers: Pulmonary embolism type: single subsegmental (without acute cor pulmonale) Qualified Code(s): I26.93 - Single subsegmental pulmonary embolism without acute cor pulmonale (2) Lymphedema: (3) Hypertension: (4) Hypokalemia: (5) Cellulitis: (6) Hyponatremia: (7) Bladder mass: (8) Hematuria: (9) Lactic acidosis: Plan #Cellulitis, chronic lymphedema bilateral lower extremities with foul-smelling discharge, cannot rule out underlying abscess #History of pulmonary embolism not a candidate for anticoagulation due to high fall risk secondary to alcohol abuse history #History of alcohol abuse #Hypertension #History of sacral pressure ulcer #Hyponatremia #Hypokalemia #Dehydration #High anion gap metabolic acidosis #Lactic acidosis #Widespread lymphadenopathy #History of prostate cancer #Possible bladder mass ? Continue vancomycin and Zosyn ? Patient is status post normal saline bolus in ER. Continue on normal saline 125 cc/h. -Patient medication list shows Lasix 80 mg daily from before. Med rec will need to be completed. He was unable to confirm any meds with nurse. Unsure if he is on any home meds. He is requiring 5L oxymask during sleeping. Probably has underlying sleep apnea. ? We will check echocardiogram ? NO sacral ulcer present. RN examined the back. ? Check venous Dopplers bilateral lower extremities ? Check CT with contrast bilateral lower extremities to rule out underlying deep abscess ? Check CRP, ESR ? Patient may benefit from prison placement ? He will need to follow-up with wound care clinic at discharge ? CT abdomen pelvis showed 1. There is a 1.4 cm area of increased attenuation at the left posterolateral margin of the urinary bladder in the region of the left UVJ/trigone on series 4, image 88. Findings are concerning for malignancy and/or metastatic disease. Direct visualization is suggested for further evaluation if clinically indicated. 2. Redemonstration of multiple enlarged inguinal, iliac chain, and periaortic lymph nodes. Findings are concerning for metastatic disease however other etiologies including lymphoma are also consideration. Correlate and follow-up as clinically indicated. 3. The hepatic parenchyma is diffusely hypoattenuating. Findings are compatible with hepatic steatosis which can be the result of a variety toxic, ischemic, and infectious insults to the liver, correlate and follow-up as clinically indicated. 4. Other chronic/incidental findings as described above -Patient will need to follow-up with urology as an outpatient for cystoscopy. UA does show blood and RBCs. ? Discussed with radiology if we can obtain lymph node biopsy during hospital stay to rule out malignancy ? Check urine sodium, urine osmolality, serum osmolality. Will slightly hyponatremic due to dehydration. -Check blood cultures, sputum culture Gram stain, urine culture ? Check lipid profile, hemoglobin A1c, TSH Full code SCDs heparin subcu twice daily for DVT prophylaxis PT OT Attestations Medical Necessity Statement*: Greater than 2 midnight stay for management of cellulitis. Coding Level of Care Code G0426 (50 min) TH Encounter Time (min): 50 Patient seen via Telehealth in the acute care setting (hospital or ED location) by agreement and consent of patient or patient entry level account representative. Telehealth technology used during the visit includes video and audio. This patient encounter is appropriate and reasonable under the circumstances given the patient?s particular presentation at this time. The patient has been advised of the potential risks and limitations of this mode of treatment (including but not limited to the absence of in-person examination at this time) and has agreed to be treated by an off-site physician for this visit. If deemed clinically necessary from this telehealth visit, or if condition or consent for telehealth visit changes, an in-person visit will be arranged. For this encounter, total time for the origination of telehealth care on this date is as shown. Diagnoses Pulmonary embolism I26.93 Pulmonary embolism type: single subsegmental (without acute cor pulmonale) Lymphedema I89.0 Hypertension I10 Hypokalemia E87.6 Cellulitis L03.90 Hyponatremia E87.1 Bladder mass N32.89 Hematuria R31.9 Lactic acidosis E87.20
[2023-01-03 23:53] LABS: Estmated Average Glucose 126
[2023-01-03 23:59] LABS: Procalcitonin 0.09 ng/mL (0-0.5); Thyroid Stimulating Hormone 0.81 uIU/mL (0.27-4.20)
[2023-01-04] VITALS (24 sets, daily range): BP systolic 96–150; BP diastolic 62–93; PULSE 59–120; RESP 14–25; TEMP 36.4–36.8; O2SAT 92–100
[2023-01-04 00:10] LABS: Cholesterol 216 mg/dL (0-200); HDL Cholesterol 40 mg/dL (60-100); LDL Cholesterol Calculated 142 mg/dL (50-129); LDL HDL Ratio 3.55 RATIO (0.00-3.22); Triglycerides 169 mg/dL (0-150)
[2023-01-04 00:25] LABS: NT Pro B Type Natriuretic Pept 142 pg/mL (0-125)
[2023-01-04] MEDS: morphine 4 mg/mL SDV 1 mL 2 MG IVP ×3 (00:55→22:17)
[2023-01-04] MEDS: sodium chloride 0.9% 1,000 ML 75 ML IV (00:56)
[2023-01-04] MEDS: heparin 5,000 unit/mL INJ 1 mL 5000 UNIT SUBCUT (00:56)
[2023-01-04 02:08] LABS: Blood Urine 2+ (Negative); Glucose Urine UA Norm (Normal); Ketones Urine 1+ (Negative); Protein Urine 2+ (Negative); Urine Appearance SL Hazy (CLEAR); Urine Color Dark Yellow (Yellow); pH Urine 5 (5-7)
[2023-01-04 02:09] LABS: Add Urine Microscopic? YES; Bilirubin Urine Neg (Negative); Leukocyte Esterase Urine Negative (Negative); Nitrate Urine Negative (Negative); Urobilinogen Urine 1 mg/dL (Negative)
[2023-01-04] MEDS: vancomycin 1,500 MG/300 ML PIGGYBACK 200 MG IV ×2 (02:22→12:54)
[2023-01-04 02:24] LABS: Bacteria Urine 1+ /hpf; Hyaline Casts Urine 0-4 /lpf; Squamous Epithelial Cell Urine 15-25 /hpf (0-5)
[2023-01-04 02:25] LABS: WBC Urine 0-4 /hpf (0-5)
[2023-01-04 05:14] LABS: ABG PH Result 7.21 (7.35-7.45); Arterial Blood Gas Hematocrit 47.3 % (42-52); Base Excess ABG -3.2 mmol/L (-2.0-2.0); Blood Gas Sample Site Brachial, right; Blood Gas Sample Type Arterial; HCO3 ABG 26.4 mmol/L (22-26); Oxygen Device OXY MASK; PO2 ABG 87.5 mmHg (80.0-100.0)
[2023-01-04 05:17] LABS: ABG PCO2 66.6 mmHg (35-45)
[2023-01-04] MEDS: ondansetron 2 mg/ML SDV 2 mL 4 MG IVP (05:33)
[2023-01-04] MEDS: metoclopramide 5 mg/mL SDV 2 mL 10 MG IVP (05:55)
[2023-01-04] MEDS: LORazepam 2 mg/mL INJ 1 mL 0.25 MG IVP (05:56)
--- NOTE | 2023-01-04 06:10 | PC.NURSE ---
Report called to MIGUEL Moore in ICU. Patient transported via bed to ICU at this time. Patient contact Ramon Rubin notified of patient transfer. Attempted to notify patient's brother, Geo, no answer. Notified Asim in ICU that Ramon was spoken to by this nurse.
[2023-01-04 06:54] LABS: Basophils # 0.1 10^3/uL (0.0-0.1); Basophils % 0.4 %; Eosinophils % 0.1 %; Hematocrit 48.3 % (42.0-52.0); Hemoglobin 15.2 g/dL (11.7-16.6); Lymphocytes % 7.4 %; Mean Corpuscular HGB Conc 31.5 g/dL (30.0-36.0); Mean Corpuscular Hemoglobin 29.2 pg (28.0-34.0); Mean Corpuscular Volume 92.9 fl (80-94); Mean Platelet Volume 8.1 fL (7.4-10.4); Monocytes % 14.1 %; Neutrophils # 10.72 10^3/uL (1.8-7.7); Neutrophils % 77.4 %; Nucleated Red Blood Cells % 0 %; Platelet Count 332 10^3/cmm (130-400); Red Cell Distribution Width 14.6 % (12.1-15.1); White Blood Count 13.9 10^3/uL (4.0-10.0)
[2023-01-04 07:15] LABS: Alanine Aminotransferase 9 U/L (0-41); Albumin Level 3.3 g/dL (3.5-5.2); Alkaline Phosphatase 117 U/L (40-130); Anion Gap 24.5 (5-19); Aspartate Amino Transferase 19 U/L (0-40); Blood Urea Nitrogen 17 mg/dL (8-23); Calcium 8.7 mg/dL (8.5-10.5); Carbon Dioxide 21 mmol/L (22-29); Chloride 96 mmol/L (98-107); Globulin 4.4 g/dL (1.3-4.6); Glucose 109 mg/dL (65-115); Magnesium 2.4 mg/dL (1.7-2.3); Osmolality Calculated 288 mOsm/kg (285-295); Potassium 3.5 mmol/L (3.5-5.1); Sodium 138 mmol/L (136-145); Total Bilirubin 0.9 mg/dL (0.15-1.2); Total Protein 7.7 g/dL (6.6-8.7)
[2023-01-04 07:18] LABS: Lactic Sepsis W/Reflex 4.3 mmol/L (0.5-2.2)
[2023-01-04] MEDS: dexmedetomidine 400 MCG in sodium chloride 0.9% (100 ml) 100 ML IV (07:28)
--- NOTE | 2023-01-04 08:17 | PC.PHAR ---
pt states he takes care of his own medications-pt states he has an albuterol inhaler and uses prn ext shows last filled 04/28/22-pt states he takes an 81mg aspirin daily-
[2023-01-04] MEDS: morphine 4 mg/mL SDV 1 mL 1 MG IVP (08:20)
[2023-01-04] MEDS: perflutren protein-a microsphr 0.22 mg/mL SDV 3 mL IV (08:31)
[2023-01-04 08:33] LABS: D Dimer 1.44 ug/mIFEU (0-0.59)
--- NOTE | 2023-01-04 08:34 | PC.NURSE ---
Patients work of breathing still labored. Patient refuses bipap even with changes in abgs. Patient non complaint. Dr. Benitez notified multiple times of patients condition.
[2023-01-04 08:38] LABS: Reflex Lactate Order REFLEX LACTIC ORDERD
[2023-01-04 08:44] LABS: Lipase 39 U/L (13-60)
[2023-01-04 08:45] LABS: Troponin(5th) Baseline 47 ng/L (0-15)
[2023-01-04 08:45] LABS: ABG PCO2 54.1 mmHg (35-45); ABG PH Result 7.27 (7.35-7.45); Arterial Blood Gas Hematocrit 46.5 % (42-52); Base Excess ABG -3.2 mmol/L (-2.0-2.0); Blood Gas Allen Test Pos; Blood Gas Operator Identificat GD; Blood Gas Sample Site Radial, left; Blood Gas Sample Type Arterial; HCO3 ABG 24.7 mmol/L (22-26); Oxygen Device OXY MASK; PO2 ABG 77.9 mmHg (80.0-100.0)
[2023-01-04 08:59] LABS: Vitamin B12 436 pg/mL (232-1245)
[2023-01-04 09:00] LABS: Folate Level 3.7 ng/mL (4.5-32.2)
--- NOTE | 2023-01-04 09:07 | PC.NURSE ---
Patient in bed, more compliant at this time. Linens changed. Patient very unkempt, legs weeping saturating bed.
--- NOTE | 2023-01-04 09:12 | PC.NURSE ---
Patient refusing EKGs
[2023-01-04] MEDS: thiamine 100 mg Tablet PO (09:17)
[2023-01-04] MEDS: multivitamin therapeutic Tablet 1 TAB PO (09:17)
[2023-01-04] MEDS: folic acid 1 mg Tablet PO (09:17)
[2023-01-04] MEDS: piperacillin-tazobactam 3.375 GM in sodium chloride 0.9% (plus) 50 ML IV ×2 (09:20→16:38)
[2023-01-04 09:54] LABS: Lactic Acid level (Lactate) 3.4 mmol/L (0.5-2.2); Troponin 5 2HR 45.58 ng/L (0-15)
[2023-01-04 09:55] LABS: Troponin 5 2HR Delta -1.42 ABS# (0-10)
--- NOTE | 2023-01-04 10:02 | ECG_ITS ---
[facility] Test Date: 2023-01-04 Pat Name: Satish Jones Department: Room: ICU03 Gender: Male [address] [employer]: : 1955 Requested By: Abhinav Benitez Order Number: [id number] Myles MD: Simone Black M.D. Measurements Intervals [place] Rate: 89 P: 79 DE: 179 QRS: -53 QRSD: 101 T: 0 QT: 201 QTc: 246 Interpretive Statements SINUS RHYTHM WITH OCCASIONAL ECTOPIC PREMATURE COMPLEXES LOW QRS VOLTAGE IN PRECORDIAL LEADS [QRS DEFLECTION < 1.0 mV IN CHEST LEADS] INCOMPLETE RIGHT BUNDLE BRANCH BLOCK [90+ ms QRS DURATION, TERMINAL R IN V1/V2, 40+ ms S IN I/aVL/V4/V5/V6] LEFT ANTERIOR FASCICULAR BLOCK [QRS AXIS <= -45, QR IN I, RS IN II] POSSIBLE ANTERIOR MYOCARDIAL INFARCTION , PROBABLY OLD [30 ms Q WAVE IN V3/V4, OR R < 0.2 mV IN V4] Compared to ECG 09/27/2020 14:25:25 Low QRS voltage now present Left anterior fascicular block now present Myocardial infarct finding now present Right ventricular hypertrophy no longer present Atrial abnormality no longer present ST (T wave) deviation no longer present Electronically Signed On 01-04-2023 16:19:01 CDT by Simone Black M.D. [id number]
--- NOTE | 2023-01-04 11:14 | XR_ITS ---
WS: [id number] XR chest 1V portable [id number] REASON FOR EXAM: Post PICC placement FINDINGS: Right arm PICC line has been placed. The tip of the catheter is in the superior vena cava at the cavo atrial junction, proper position. XR/XR chest 1V portable [id number] IMPRESSION: The PICC line is in proper position in the SVC ready for use.
--- NOTE | 2023-01-04 12:00 | PC.NURSE ---
Triple lumen PICC placed to right basilic vein without difficulty. Pt referred for PICC due to the need of multiple meds, including heparin, and poor IV access. Right basilic vein assessed and noted to be 3.5 mm, straight, and apparent best choice for placement. Pt lethargic and unable to give consent. Pt brother, Geo, contacted and informed consent obtained. Using ultrasound guidance and MST, right basilic vein accessed x 1 stick. Mid-arm circumference measured 10 cm from right AC 34 cm. Trimmed cath length 50 cm with 1 cm external length noted. CXR confirms tip in SVC, cavoatrial junction, in good position for use per radiologist. Line secured with stat lock. Insertion site covered with Biopatch and TSM. Report given to beside nurseSuzanne.
[2023-01-04] MEDS: dexmedetomidine 400 MCG in sodium chloride 0.9% (100 ml) 100 ML 23 MCG IV (12:29)
[2023-01-04] MEDS: heparin drip 25,000 UNIT/500 ML PREMIX 41.28 UNIT IV (13:03)
[2023-01-04] MEDS: saline nasal spray 44mL Btl 1 SPRAY NASAL (13:22)
[2023-01-04 13:29] LABS: Troponin 5 6HR 40.56 ng/L (0-15)
[2023-01-04 13:31] LABS: Troponin 5 6HR Delta -6.44 ng/L (0-12)
--- NOTE | 2023-01-04 13:59 | XRR_ITS ---
PROCEDURE INFORMATION: Exam: XR Chest Exam date and time: 01/04/2023 2:21 PM Age: 67 years old Clinical indication: Shortness of breath; Additional info: Air pocket right side of neck TECHNIQUE: Imaging protocol: Radiologic exam of the chest. Views: 1 view. COMPARISON: 1. CR XR chest 1V portable [id number] 01/04/2023 12:[address] chest abdpel w/*[id number] 08/01/2022 1:15 PM 3. CR XR chest 1V portable [id number] 07/04/2019 12:32 PM FINDINGS: Tubes, catheters and devices: Right upper extremity PICC terminates near the superior cavoatrial junction. Lungs: Hypoinflated lungs with improved left lower lung zone aeration. Bibasilar linear atelectasis versus scarring. No consolidation. Pleural spaces: Unremarkable. No pleural effusion. No pneumothorax. Heart/Mediastinum: Prominence of the cardiac silhouette attributed to AP technique and hypoinflated lungs. Bones/joints: Unremarkable. Soft tissues: Left chest 4 mm density corresponds to superficial anterior chest foreign body on CT. XR/XR chest 1V portable [id number] IMPRESSION: Pulmonary hypoinflation without acute findings.
[2023-01-04 14:19] LABS: ABG PH Result 7.28 (7.35-7.45); Arterial Blood Gas Hematocrit 43.9 % (42-52); Base Excess ABG 0.9 mmol/L (-2.0-2.0); Blood Gas Allen Test Pos; Blood Gas Operator Identificat GD; Blood Gas Sample Site Radial, right; Blood Gas Sample Type Arterial; Carboxyhemoglobin 1.9 %THgb (0.4-20.1); HCO3 ABG 29.2 mmol/L (22-26); Ionized Calcium Level - ABG 1.2 mmol/L (1.1-1.4); Methemoglobin 0.5 % (0.4-1.5); Oxygen Device OXY MASK; Oxygen Saturation ABG 96.3; PO2 ABG 81.4 mmHg (80.0-100.0); Potassium Level - ABG 3.6 mmol/L (3.5-5.0); Total Hemoglobin 14.3 g/dL (14-18)
[2023-01-04 14:20] LABS: ABG PCO2 61.6 mmHg (35-45)
[2023-01-04] MEDS: ipratropium-albuterol 3 mL Neb INHALATION (14:42)
--- NOTE | 2023-01-04 16:40 | P.PN_ITS ---
Subjective Subjective: - Patient was examined multiple times throughout the morning in the afternoon -Early in the morning patient was examined, he was refusing BiPAP, currently on 6 L OxyMask, -He was alert to person, to place, to time, -Complaining of severe back pain, he tells me normally he sits in a chair he can lie flat, due to severe back pain -Reports his last drink of alcohol was about 24 hours ago and he had beer -Denies any chest pain, no palpitations, no shortness of breath -He was agreeable to PICC line placement, PICC line was placed -Repeat ABG showed hypoxia, hypercarbia, but a bit improved compared to the morning ABG will continue to monitor -Reexamined in the afternoon, he is a bit more calm on Precedex he is agreeable to BiPAP placement we will place on BiPAP Vitals/I&O/Wt Last Vital Signs Temp 98.2 F 01/04/23 03:35 Pulse 68 01/04/23 16:00 Resp 16 01/04/23 16:00 BP 119/82 01/04/23 16:00 Pulse Ox 95 01/04/23 16:00 O2 Del Method BiPAP 01/04/23 14:30 O2 Flow Rate 7 01/04/23 08:33 FiO2 30 01/04/23 14:34 01/04/23 01/04/23 01/04/23 06:59 14:59 22:59 Intake Total 660 / 710 1561.288 / 1561.288 78.702 / 1639.990 Output Total 700 / 700 Balance 660 / 710 861.288 / 861.288 78.702 / 939.990 Weight last 48 hrs Weight 121.336 kg Weight 147.418 kg Physical Exam Const: COMMON NORMALS: no acute distress ORIENTATION/CONSCIOUSNESS: Yes awake, Yes oriented to person, Yes oriented to place and Yes oriented to time Eye: COMMON NORMALS: Equal, round and reactive pupils present PUPIL: Yes Equal, round and reactive pupils present Resp: COMMON NORMALS: normal respiratory effort, No retractions, No use of accessory muscles and clear to auscultation bilaterally AUSCULTATION: clear to auscultation bilaterally Cardio: COMMON NORMALS: regular rate, regular rhythm, S1 normal heart sound present and S2 normal heart sound present RATE: regular rate RHYTHM: regular rhythm HEART SOUNDS: S1 normal heart sound present and S2 normal heart sound present GI: COMMON NORMALS: Soft to palpation and non-tender INSPECTION: Yes normal to inspection and Yes abdominal distension AUSCULTATION: Yes normoactive bowel sounds PALPATION: Yes Soft to palpation, No Tenderness to palpation present (GI), No Guarding due to palpation present (GI) and No Rigid due to palpation Extremity: COMMON NORMALS: no pedal edema NARRATIVE EXTREMITY EXAM: - Bilateral lower extremities, crusting bilateral feet Neuro: SENSORIUM/ORIENTATION: Yes oriented to person, Yes oriented to place and Yes oriented to time Psych: COMMON NORMALS: mental status grossly normal Urinary Catheter Management: Jeffery: Cath Placed During This Visit: yes Reason for Continuing Indwelling Catheter: Acute Urinary Retention or Obstruction Urinary Catheter Date of Insertion: 01/04/23 Urinary Catheter Time of Insertion: 01:20 Data 01/04/23 06:39 01/04/23 06:39 Micro: Microbiology 01/04/23 07:04 Blood Culture - Preliminary Blood SPECIMEN COLLECTED 01/04/23 06:39 Blood Culture - Preliminary Blood SPECIMEN COLLECTED A&P Assessment and plan (1) Pulmonary embolism: Qualifiers: Pulmonary embolism type: single subsegmental (without acute cor pulmonale) Qualified Code(s): I26.93 - Single subsegmental pulmonary embolism without acute cor pulmonale (2) Lymphedema: (3) Hypertension: (4) Hypokalemia: (5) Cellulitis: (6) Hyponatremia: (7) Bladder mass: (8) Hematuria: (9) Lactic acidosis: (10) Acute respiratory failure with hypoxia and hypercapnia: (11) COPD exacerbation: (12) Crusted scabies: (13) Folic acid deficiency: (14) Obesity, morbid: (15) Sepsis: (16) Obstructive sleep apnea: (17) NSTEMI (non-ST elevated myocardial infarction): (18) Alcohol withdrawal: Plan #Acute hypoxic hypercarbic respiratory failure -Likely secondary to underlying COPD exacerbation -Also he has a history of pulmonary embolism, is not on anticoagulation due to fall risk, and alcohol abuse history, elevated D-dimer, patient is unsure why he is not on anticoagulation, potentially could be worsening of clot burden or development of new pulm emboli Plan -Admit to ICU -Recommend BiPAP therapy -Continue Precedex -Decadron -Is on broad-spectrum antibiotic therapy -Heparin ip until CT angiogram is back -Venous ultrasound -Echocardiogram ordered -Follow blood cultures, urine cultures #Cellulitis, chronic lymphedema bilateral lower extremities with foul-smelling discharge, cannot rule out underlying abscess -Continue broad-spectrum biotic therapy -Continue vancomycin, Zosyn -We will consider further imaging based on clinical progress #Sepsis -Secondary cellulitis -Due to elevated white count, elevated lactic acid, hypoxia, elevated D-dimer, elevated troponins #NSTEMI -Likely type II from supply demand ischemia from respiratory failure -Serial EKGs, serial troponins, telemetry monitoring -No chest pain complaints -Cardiac echo #History of pulmonary embolism not a candidate for anticoagulation due to high fall risk secondary to alcohol abuse history #Alcohol withdrawal -[facility] protocol #Hypertension #History of sacral pressure ulcer #Hyponatremia #Hypokalemia #Dehydration #High anion gap metabolic acidosis -Likely starvation ketosis for alcoholism #Lactic acidosis -From respiratory failure, cellulitis, possible pulmonary emboli #Widespread lymphadenopathy 1. ? There is a 1.4 cm area of increased attenuation at the left posterolateral margin of the urinary bladder in the region of the left UVJ/trigone on series 4, image 88. Findings are concerning for malignancy and/or metastatic disease. Direct visualization is suggested for further evaluation if clinically indicated. 2. ? Redemonstration of multiple enlarged inguinal, iliac chain, and periaortic lymph nodes. Findings are concerning for metastatic disease however other etiologies including lymphoma are also consideration. Correlate and follow-up as clinically indicated. -We will need to follow-up with hematology oncology as outpatient -We will order uric acid, lymphoma, leukemia panel #History of prostate cancer #Possible bladder mass 1. ? There is a 1.4 cm area of increased attenuation at the left posterolateral margin of the urinary bladder in the region of the left UVJ/trigone on series 4, image 88. Findings are concerning for malignancy and/or metastatic disease. Direct visualization is suggested for further evaluation if clinically indicated. 2. ? Redemonstration of multiple enlarged inguinal, iliac chain, and periaortic lymph nodes. Findings are concerning for metastatic disease however other etiologies including lymphoma are also consideration. Correlate and follow-up as clinically indicated. -Will need to follow-up with urology as outpatient #Liberian scabies, crusted scabies bilateral extremities -Permethrin -We will perform skin dermatoscope he, coordinate with pathology -We will have to order ivermectin through outpatient pharmacy -Contact precautions #Sleep apnea, GORDON #Obesity Full code SCDs heparin subcu twice daily for DVT prophylaxis PT OT Attestations Medical Necessity Statement*: Patient requires hospitalization, inpatient, greater than 2 midnights, for acute hypoxic respiratory failure, cellulitis, NSTEMI, sepsis, lactic acidosis, increased anion gap metabolic acidosis, cellulitis, scabies, crusted scabies, alcohol withdrawal Diagnoses Pulmonary embolism I26.93 Pulmonary embolism type: single subsegmental (without acute cor pulmonale) Lymphedema I89.0 Hypertension I10 Hypokalemia E87.6 Cellulitis L03.90 Hyponatremia E87.1 Bladder mass N32.89 Hematuria R31.9 Lactic acidosis E87.20 Acute respiratory failure with hypoxia and hypercapnia J96.01; J96.02 COPD exacerbation J44.1 Crusted scabies B86 Folic acid deficiency E53.8 Obesity, morbid E66.01 Sepsis A41.9 Obstructive sleep apnea G47.33 NSTEMI (non-ST elevated myocardial infarction) I21.4 Alcohol withdrawal F10.939
[2023-01-04] MEDS: permethrin cream 5% 60 gm 1 APPLIC TOPICAL (16:55)
[2023-01-04 17:18] LABS: Erythrocyte Sedimentation Rate 50 mm/hr (0-10)
[2023-01-04] MEDS: dexamethasone 10 mg/mL INJ 6 MG IVP (17:24)
[2023-01-04 17:26] LABS: LAB Peripheral Smear Sent for Review
[2023-01-04 17:38] LABS: Alveolar-Arterial Oxygen Gradi 4.6 mmHg (5-10); Arterial Blood Gas Hematocrit 42.8 % (42-52); Base Excess ABG 1.9 mmol/L (-2.0-2.0); Blood Gas Allen Test Pos; Blood Gas Operator Identificat GD; Blood Gas Sample Site Radial, left; Blood Gas Sample Type Arterial; Blood Gas Tidal Volume 0.55; HCO3 ABG 29.9 mmol/L (22-26); HGB O2 Sat 95.5 % (95-100); Ionized Calcium Level - ABG 1.2 mmol/L (1.1-1.4); Methemoglobin 0.8 % (0.4-1.5); Oxygen Device BIPAP; Oxygen Saturation ABG 98.3; Potassium Level - ABG 3.6 mmol/L (3.5-5.0)
[2023-01-04 17:39] LABS: ABG PCO2 60.4 mmHg (35-45)
--- NOTE | 2023-01-04 17:51 | PC.NURSE ---
Permetharin cream applied per MAR, needs to be washed off by 0500 on 01/05/23.
[2023-01-04] MEDS: LORazepam 2 mg/mL INJ 1 mL IVP (22:21)
--- NOTE | 2023-01-04 23:28 | USCV_ITS ---
Satish Jones Age: 67 Gender: M : 1955 Exam Date: 01/04/2023 08:15 Ordering Phys: Samantha Liu MD Technologist: Yobani Knox [place] [facility] [place]: bilat edema HISTORY: Lower extremity edema. PROCEDURES: The venous duplex Doppler examination of both lower extremities was performed in the standard fashion. The following venous structures were evaluated: common femoral vein, profunda vein, proximal portion of the greater saphenous vein, superficial femoral vein, and the popliteal vein. Bilaterally, the common femoral, superficial femoral, profunda femoral, popliteal, posterior tibial, greater saphenous veins, and the peroneal trunk were identified and interrogated in the standard fashion. These veins were found to be easily compressible with spontaneous blood flow. No evidence of insufficiency or thrombus noted. FINDINGS: Normal 2-D Doppler and augmentation and compressibility throughout the lower extremity venous structures. Additional imaging through the proximal calf veins also reveals no thrombus. Limited evaluation of the greater saphenous vein is patent with no thrombus. CONCLUSIONS No DVT bilateral lower extremities. Dr. Yasmine Hancock DO (Electronically Signed) Final Date: 04 January 2023 11:26 S
--- NOTE | 2023-01-04 23:28 | USCV_ITS ---
Satish Jones Age: 67 Gender: M : 1955 Exam Date: 01/04/2023 07:53 Ordering Phys: Samantha Liu MD Technologist: Yobani Knox Exam Location: [facility] [place] Indication: chf BP: 136 / 70 HR: 116 Rhythm: Sinus Technical Quality: Adequate MEASUREMENTS (Male / Female) Normal Values 2D ECHO LV Ejection Fraction MOD 2C 50.0 % LV Ejection Fraction 2C AL 48.5 % DOPPLER AV Peak Velocity 152.0 cm/s LVOT Peak Velocity 96.0 cm/s MV Area PHT 5.0 cm squared Mitral E to A Ratio 1.1 MV E' Velocity 57.5 cm/s Mitral E to MV E' Ratio 9.6 Mitral E to LV E' Lateral Ratio 8.7 Mitral E to LV E' Septal Ratio 10.8 TR Peak Velocity 180.3 cm/s TR Peak Gradient 13.0 mmHg TV Peak E Velocity 110.0 cm/s Right Atrial Pressure 3.0 mmHg Pulmonary Artery Systolic Pressu 16.0 mmHg FINDINGS Left Ventricle Technically very difficult study because of poor ultrasonic windows. (Echo contrast - Optison was used to delineate the endocardium and to estimate the LV ejection fraction) even with echo contrast, the study quality was compromised. There appears to be diffuse hypokinesia of the left ventricle and right ventricular. LV ejection fraction estimated to be around 48%. Right Ventricle Right ventricular also appears to be diffusely hypokinetic with a minimally diminished ejection fraction Right Atrium Left Atrium Mitral Valve Aortic Valve Tricuspid Valve Pulmonic Valve Pericardium Aorta IVC CONCLUSIONS 1. Technically difficult study 2. Diffuse hypokinesia of the left-ventricule with a diminished ejection fraction of around 48%. 3. Diffuse hypokinesia of the right ventricle with slightly diminished ejection fraction. The right ventricle appears to be mildly dilated 3. Even with echo contrast, study quality is compromised Dr Yeimy Mike MD [facility] (Electronically Signed) Final Date: 04 January 2023 19:38 S
[2023-01-05] VITALS (28 sets, daily range): BP systolic 112–166; BP diastolic 69–103; PULSE 59–123; RESP 14–33; TEMP 36.4–36.7; O2SAT 90–100
[2023-01-05] MEDS: piperacillin-tazobactam 3.375 GM in sodium chloride 0.9% (plus) 50 ML IV ×3 (01:00→17:18)
[2023-01-05] MEDS: vancomycin 1,500 MG/300 ML PIGGYBACK 200 MG IV ×2 (01:09→14:24)
[2023-01-05] MEDS: heparin drip 25,000 UNIT/500 ML PREMIX 32.43 UNIT IV (02:27)
[2023-01-05 02:45] LABS: Basophils % 0.2 %; Hematocrit 40.7 % (42.0-52.0); Hemoglobin 12.5 g/dL (11.7-16.6); Lymphocytes # 0.7 10^3/uL (0.8-4.8); Lymphocytes % 8.7 %; Mean Corpuscular HGB Conc 30.7 g/dL (30.0-36.0); Mean Corpuscular Hemoglobin 29.2 pg (28.0-34.0); Mean Corpuscular Volume 95.1 fl (80-94); Mean Platelet Volume 8.3 fL (7.4-10.4); Monocytes # 0.3 10^3/uL (0.2-0.9); Neutrophils # 7.24 10^3/uL (1.8-7.7); Neutrophils % 87.6 %; Nucleated Red Blood Cells % 0 %; Platelet Count 202 10^3/cmm (130-400); Red Blood Count 4.28 10^6/uL (4.1-5.3); Red Cell Distribution Width 14.5 % (12.1-15.1); White Blood Count 8.3 10^3/uL (4.0-10.0)
[2023-01-05 03:02] LABS: INR 1.27 (0.8-1.2)
[2023-01-05 03:04] LABS: Lactate (Lactic Acid level) 1.6 mmol/L (0.5-2.2)
[2023-01-05 03:05] LABS: Alanine Aminotransferase 6 U/L (0-41); Albumin Level 2.7 g/dL (3.5-5.2); Alkaline Phosphatase 86 U/L (40-130); Anion Gap 17.4 (5-19); Aspartate Amino Transferase 11 U/L (0-40); Blood Urea Nitrogen 18 mg/dL (8-23); C Reactive Protein 135.9 mg/L (0.0-4.9); Calcium 7.5 mg/dL (8.5-10.5); Carbon Dioxide 23 mmol/L (22-29); Chloride 91 mmol/L (98-107); Globulin 3.5 g/dL (1.3-4.6); Glomerular Filtration Rate 135.2 mL/min (90-130); Glucose 133 mg/dL (65-115); Magnesium 2.1 mg/dL (1.7-2.3); Osmolality Calculated 270 mOsm/kg (285-295); Phosphorus 1.7 mg/dL (2.5-4.5); Potassium 3.4 mmol/L (3.5-5.1); Sodium 128 mmol/L (136-145); Total Bilirubin 0.6 mg/dL (0.15-1.2); Total Protein 6.2 g/dL (6.6-8.7)
[2023-01-05 03:12] LABS: Partial Thromboplastin Time 110.9 SECONDS (23.9-36.7)
[2023-01-05 03:17] LABS: NT Pro B Type Natriuretic Pept 326 pg/mL (0-125)
[2023-01-05 03:28] LABS: Creatine Phosphokinase 35 U/L (39-308)
[2023-01-05] MEDS: morphine 4 mg/mL SDV 1 mL 2 MG IVP ×5 (03:41→23:34)
[2023-01-05 04:08] LABS: ABG PCO2 48.3 mmHg (35-45); ABG PH Result 7.39 (7.35-7.45); Arterial Blood Gas Hematocrit 45.4 % (42-52); Base Excess ABG 2.9 mmol/L (-2.0-2.0); Blood Gas Allen Test Pos; Blood Gas Sample Site Radial, right; Blood Gas Sample Type Arterial; HCO3 ABG 28.9 mmol/L (22-26); Oxygen Device NC; PO2 ABG 75.7 mmHg (80.0-100.0)
--- NOTE | 2023-01-05 08:02 | CTR_ITS ---
PROCEDURE INFORMATION: Exam: CTA Chest With Contrast Exam date and time: 01/05/2023 10:14 AM Age: 67 years old Clinical indication: Shortness of breath; Patient HX: HX of prostate cancer; Additional info: SOB TECHNIQUE: Imaging protocol: Computed tomographic angiography of the chest with contrast. Exam focused on the arteries. 3D rendering (Not supervised by radiologist): MIP reconstructed images were created by the technologist. Radiation optimization: All CT scans at this facility use at least one of these dose optimization techniques: automated exposure control; mA and/or kV adjustment per patient size (includes targeted exams where dose is matched to clinical indication); or iterative reconstruction. Contrast material: OMNI 350; Contrast volume: 100 ml; Contrast route: INTRAVENOUS (IV); REPORTING DATA: Count of CT and Cardiac NM exams in prior 12 months: This patient has received 3 known CTs and 0 known cardiac nuclear medicine studies in the 12 months prior to the current study. COMPARISON: CT angio chest PE protcl [id number] 07/04/2019 5:00 PM RADIATION DOSE METRICS: Total DLP (mGy-cm): 524.91 FINDINGS: Pulmonary arteries: No pulmonary artery embolism identified. Aorta: No aortic aneurysm. No aortic dissection. Thyroid: Right thyroid hypodensity measuring 18.7 mm. Lungs: Right upper lobe calcified pulmonary parenchymal granuloma. Bilateral lower lobe pulmonary partial/subsegmental atelectasis. Pleural spaces: No pneumothorax. No pleural effusion. Heart: Normal. No pericardial effusion. Coronary arteries: LAD, LCx and RCA calcified coronary atherosclerosis. Lymph nodes: Right hilar and retrocaval/paratracheal granulomatous addie calcifications are present. Pancreas: Moderate pancreatic atrophy. Spleen: A small medial splenule is present. Bones/joints: No destructive bony process identified. Thoracic spine vertebral body marginal osteophytes are noted at multiple levels. Soft tissues: Unremarkable. CT/CT angio chest PE protcl [id number] IMPRESSION: 1. No pulmonary artery embolism identified. 2. Bilateral lower lobe pulmonary partial/subsegmental atelectasis. 3. Coronary atherosclerosis. 4. Recommend nonemergent thyroid sonography for further evaluation of a right thyroid nodule.
[2023-01-05] MEDS: folic acid 1 mg Tablet PO (08:14)
[2023-01-05] MEDS: potassium phosphate (mEq K) 40 MEQ in sodium chloride 0.9% (100 ml) 100 ML 27.25 MEQ IV (08:14)
[2023-01-05] MEDS: multivitamin therapeutic Tablet 1 TAB PO (08:14)
[2023-01-05] MEDS: thiamine 100 mg Tablet PO (08:14)
--- NOTE | 2023-01-05 08:30 | PC.NURSE ---
bedside swallow study completed by nursing staff, no coughing, or visible difficulties noticed. Given food and drink per nurse evaluation
--- NOTE | 2023-01-05 09:00 | PC.NURSE ---
bedside nursing swallow st
[2023-01-05 09:35] LABS: Partial Thromboplastin Time 52.2 SECONDS (23.9-36.7)
[2023-01-05] MEDS: iohexol 350 mg/mL 500 mL Btl (per mL) IV (10:25)
[2023-01-05 14:08] LABS: Vancomycin Trough 10.2 ug/mL (10-15)
[2023-01-05] MEDS: FUROsemide 10 mg/mL SDV 4mL 40 MG IVP (14:54)
[2023-01-05] MEDS: potassium chloride ER 20 mEq Tablet 40 MEQ PO (14:54)
--- NOTE | 2023-01-05 16:15 | XRR_ITS ---
PROCEDURE INFORMATION: Exam: XR Right Tibia and Fibula Exam date and time: 01/05/2023 4:30 PM Age: 67 years old Clinical indication: Condition or disease; Other: Superficial cellulitis TECHNIQUE: Imaging protocol: Radiologic exam of the right tibia and fibula. Views: Frontal and off lateral, 2 views. COMPARISON: CR XR tibia fibula RT 2V [id number] 06/27/2019 7:37 PM FINDINGS: Bones/joints: No destructive bony process identified. Soft tissues: Diffuse soft tissue swelling. No ectopic gas. No foreign body. XR/XR tibia fibula RT 2V [id number] IMPRESSION: 1. Diffuse soft tissue swelling. Findings are consistent with cellulitis. 2. No destructive bony process identified.
--- NOTE | 2023-01-05 16:15 | XRR_ITS ---
PROCEDURE INFORMATION: Exam: XR Left Tibia and Fibula Exam date and time: 01/05/2023 4:37 PM Age: 67 years old Clinical indication: Condition or disease; Other: Superficial cellulitis TECHNIQUE: Imaging protocol: Radiologic exam of the left tibia and fibula. Views: Oblique, lateral 2 views. COMPARISON: CR XR tibia fibula LT 2V [id number] 06/27/2019 7:37 PM FINDINGS: Bones/joints: No fracture. No malalignment. No destructive bony process identified. Soft tissues: Diffuse soft tissue swelling. No ectopic gas. No foreign body. XR/XR tibia fibula LT 2V [id number] IMPRESSION: 1. Diffuse soft tissue swelling. Cellulitis is likely. Clinical correlation is recommended. 2. No destructive bony process identified.
--- NOTE | 2023-01-05 16:39 | P.PN_ITS ---
Subjective Subjective: - Patient was examined this morning -No acute events overnight -Denies any fevers, no chills, he actually tells me he is breathing significantly better -He was reexamined, earlier in the morning sitting up in a chair, complains of weeping edema of bilateral lower extremity, -Does report lack of sensation of bilateral lower extremities -Denies any chest pain, palpitations, denies seeing or hearing things are not there -Reexamined the ear earlier in the afternoon, sitting up in a chair, on 4 L, normotensive, afebrile, he has no complaints, Vitals/I&O/Wt Last Vital Signs Temp 98.1 F 01/05/23 07:30 Pulse 89 01/05/23 16:00 Resp 14 01/05/23 16:00 BP 165/90 01/05/23 16:00 Pulse Ox 94 01/05/23 16:00 O2 Del Method Nasal Cannula 01/05/23 06:00 O2 Flow Rate 4 01/05/23 06:00 FiO2 4 01/05/23 04:00 01/05/23 01/05/23 01/05/23 06:59 14:59 22:59 Intake Total 559.222 / 3037.210 413.6196 / 736.1219 300 / 1036.1219 Output Total 850 / 1550 Balance -290.778 / 1487.776 470.0989 / 736.1219 300 / 1036.1219 Weight last 48 hrs Weight 123.831 kg Weight 121.336 kg Weight 147.418 kg Physical Exam Const: COMMON NORMALS: no acute distress and patient oriented x3 Resp: COMMON NORMALS: normal respiratory effort, No retractions, No use of accessory muscles and clear to auscultation bilaterally AUSCULTATION: clear to auscultation bilaterally Cardio: COMMON NORMALS: regular rate, regular rhythm, S1 normal heart sound present and S2 normal heart sound present RATE: regular rate RHYTHM: regular rhythm HEART SOUNDS: S1 normal heart sound present and S2 normal heart sound present GI: COMMON NORMALS: Normal to inspection, nondistended, normoactive bowel sounds present Neuro: COMMON NORMALS: patient oriented x3 Psych: COMMON NORMALS: mental status grossly normal Skin: NARRATIVE SKIN EXAM: Bilateral lower extremities, weeping edema, weeping cellulitis, diffuse, from the knee joint, down to the toes, 2+ pitting edema Urinary Catheter Management: Jeffery: Cath Placed During This Visit: yes Reason for Continuing Indwelling Catheter: Accurate Measurement of Urinary Output in Critically Ill Patients Urinary Catheter Date of Insertion: 01/04/23 Urinary Catheter Time of Insertion: 01:20 Data 01/05/23 02:30 01/05/23 02:30 Micro: Microbiology 01/04/23 07:04 Blood Culture - Preliminary Blood NEGATIVE TO DATE 01/04/23 06:39 Blood Culture - Preliminary Blood NEGATIVE TO DATE A&P Assessment and plan (1) Pulmonary embolism: Qualifiers: Pulmonary embolism type: single subsegmental (without acute cor pulmon milad) Qualified Code(s): I26.93 - Single subsegmental pulmonary embolism without acute cor pulmonale (2) Lymphedema: (3) Hypertension: (4) Hypokalemia: (5) Cellulitis: (6) Hyponatremia: (7) Bladder mass: (8) Hematuria: (9) Lactic acidosis: (10) Acute respiratory failure with hypoxia and hypercapnia: (11) COPD exacerbation: (12) Crusted scabies: (13) Folic acid deficiency: (14) Obesity, morbid: (15) Sepsis: (16) Obstructive sleep apnea: (17) NSTEMI (non-ST elevated myocardial infarction): (18) Alcohol withdrawal: Plan #Acute hypoxic hypercarbic respiratory failure -Likely secondary to underlying COPD exacerbation, some component of fluid overload Plan -Admit to ICU -Recommend BiPAP therapy -Continue Precedex -Decadron -1 dose Lasix today -Is on broad-spectrum antibiotic therapy -Follow blood cultures, urine cultures #Cellulitis, chronic lymphedema bilateral lower extremities with foul-smelling discharge, cannot rule out underlying abscess -Continue broad-spectrum biotic therapy -Continue vancomycin, Zosyn -Order x-rays bilateral lower extremities -Consult general surgery for consideration of debridement #Sepsis -Secondary cellulitis -Due to elevated white count, elevated lactic acid, hypoxia, elevated D-dimer, elevated troponins #NSTEMI -Likely type II from supply demand ischemia from respiratory failure -Serial EKGs, serial troponins, telemetry monitoring -No chest pain complaints -Cardiac echo #History of pulmonary embolism not a candidate for anticoagulation due to high fall risk secondary to alcohol abuse history -CT angiogram negative for pulmonary embolism -Bilateral venous ultrasound negative for DVT -Given his history of PEs over 3 years ago, it was his first PE, unprovoked, with his history of alcoholism, history of falls, he is not on anticoagulation, CT angiogram negative for pulm nails him, venous ultrasound negative for DVT discussed risk and benefits of anticoagulation, he voiced understanding, all question answered, will discontinue full dose anticoagulation for now #Alcohol withdrawal -[facility] protocol #Hypertension #History of sacral pressure ulcer #Hyponatremia #Hypokalemia #Dehydration #High anion gap metabolic acidosis -Likely starvation ketosis for alcoholism #Lactic acidosis -From respiratory failure, cellulitis, possible pulmonary emboli #Widespread lymphadenopathy 1. ? There is a 1.4 cm area of increased attenuation at the left posterolateral margin of the urinary bladder in the region of the left UVJ/trigone on series 4, image 88. Findings are concerning for malignancy and/or metastatic disease. Direct visualization is suggested for further evaluation if clinically indicated. 2. ? Redemonstration of multiple enlarged inguinal, iliac chain, and periaortic lymph nodes. Findings are concerning for metastatic disease however other etiologies including lymphoma are also consideration. Correlate and follow-up as clinically indicated. -We will need to follow-up with hematology oncology as outpatient -Order leukemia panel, ordered lymphoma panel #History of prostate cancer #Possible bladder mass 1. ? There is a 1.4 cm area of increased attenuation at the left posterolateral margin of the urinary bladder in the region of the left UVJ/trigone on series 4, image 88. Findings are concerning for malignancy and/or metastatic disease. Direct visualization is suggested for further evaluation if clinically indicated. 2. ? Redemonstration of multiple enlarged inguinal, iliac chain, and periaortic lymph nodes. Findings are concerning for metastatic disease however other etiologies including lymphoma are also consideration. Correlate and follow-up as clinically indicated. -Will need to follow-up with urology as outpatient #Concerns for scabies -Permethrin -We will perform skin dermatoscope he, coordinate with pathology -We will have to order ivermectin through outpatient pharmacy -Contact precautions #Sleep apnea, GORDON #Obesity Full code SCDs Lovenox for DVT prophylaxis PT OT Plan for today, coordinate with pathology for super Nati skin scraping for evaluation for scabies, Lasix therapy, replace potassium, replace phosphorus, continue antibiotic treatments, CT angiogram ordered, stop heparin drip, spoke to pathology, spoke to general surgery, spoke to nursing staff Attestations Medical Necessity Statement*: Patient requires hospitalization for respiratory failure, cellulitis, alcoholism, Diagnoses Pulmonary embolism I26.93 Pulmonary embolism type: single subsegmental (without acute cor pulmonale) Lymphedema I89.0 Hypertension I10 Hypokalemia E87.6 Cellulitis L03.90 Hyponatremia E87.1 Bladder mass N32.89 Hematuria R31.9 Lactic acidosis E87.20 Acute respiratory failure with hypoxia and hypercapnia J96.01; J96.02 COPD exacerbation J44.1 Crusted scabies B86 Folic acid deficiency E53.8 Obesity, morbid E66.01 Sepsis A41.9 Obstructive sleep apnea G47.33 NSTEMI (non-ST elevated myocardial infarction) I21.4 Alcohol withdrawal F10.939
--- NOTE | 2023-01-05 17:15 | P.CONIM_ITS ---
Providers/Reason For Consult Consulting Physician/Specialty*: Elder Delarosa, DO/General surgery Reason for Consult*: Console debridement of bilateral lower extremities Attending Physician: Abhinav Benitez MD Primary Care Provider: KAYLAN Kim History of Present Illness History of Present Illness Satish Jones is a 67 year old male, with a history of alcohol abuse, who presented to the hospital with bilateral lower extremity swelling and pain. He is found to have an NSTEMI and was short of breath. He reportedly wraps his legs at home. The bilateral lower extremities are edematous and foul swelling. He has diffuse lower extremity dull pain. Palpation makes pain worse. Nothing makes pain better. Denies any fever or chills. Review of Systems General: Reports: 10 or more systems reviewed and unremarkable except in HPI and below Medications/Allergies Home Medications Medication Instructions Recorded Confirmed Last Taken Type amlodipine 10 mg tablet 10 mg PO QAM 07/28/19 01/04/23 09/27/20 06:00 History cyclobenzaprine 5 mg tablet 5 mg PO TID PRN muscle spasm #12 09/27/20 01/04/23 Unknown Rx tabs furosemide 80 mg tablet 80 mg PO QAM 09/27/20 01/04/23 09/26/20 History acetaminophen 500 mg tablet 1,000 mg PO Q6H PRN Pain 01/04/23 01/04/23 Unknown History albuterol sulfate 90 mcg/actuation 2 puff inhalation Q6H PRN 01/04/23 01/04/23 Unknown History aerosol inhaler Shortness Of Breath aspirin 81 mg tablet,delayed 81 mg PO QAM 01/04/23 01/04/23 Unknown History release naproxen 250 mg tablet 250 mg PO BID PRN Pain 01/04/23 01/04/23 Unknown History oxycodone-acetaminophen 5 mg-325 1 tab PO Q8H PRN Pain 01/04/23 01/04/23 Unknown History mg tablet Allergies Allergy/AdvReac Type Severity Reaction Status Date / Time No Known Allergies Allergy Verified 01/04/23 08:17 Current Medications Generic Name Dose Route Start Last Admin Trade Name Freq PRN Reason Stop Dose Admin Acetaminophen 650 mg 01/03/23 23:23 01/06/23 21:20 Acetaminophen 325 Mg Tablet PO 650 mg Q6H PRN Administration Mild/Mod Pain Or Temp >/= 101 Albuterol/Ipratropium 3 ml 01/03/23 23:23 01/04/23 14:42 Ipratropium-Albuterol 3 Ml Neb INHALATION 3 ml Q6H PRN Administration SHORTNESS OF BREATH Alprazolam 0.5 mg 01/06/23 15:43 01/06/23 15:55 Alprazolam 0.5 Mg Tablet PO 0.5 mg Q24H PRN Administration ANXIETY Amlodipine Besylate 10 mg 01/07/23 10:50 01/07/23 11:44 Amlodipine 10 Mg Tablet PO 10 mg DAILY MAYNOR Administration Aspirin 81 mg 01/06/23 06:00 01/07/23 06:18 Aspirin 81 Mg Ec Tablet PO 81 mg QAM MAYNOR Administration Atorvastatin Calcium 40 mg 01/06/23 21:00 01/06/23 21:18 Atorvastatin 40 Mg Tablet PO 40 mg BEDTIME MAYNOR Administration Enoxaparin Sodium 40 mg 01/05/23 18:00 01/06/23 18:07 Enoxaparin 40 Mg/0.4 Ml Syringe SUBCUT 40 mg Q24H MAYNOR Administration Folic Acid 1 mg 01/04/23 09:00 01/07/23 10:35 Folic Acid 1 Mg Tablet PO Not Given DAILY MAYNOR Furosemide 40 mg 01/07/23 11:00 01/07/23 11:44 Furosemide 10 Mg/Ml Sdv 4ml IVP 40 mg Q12H MAYNOR Administration Vancomycin/PEG/NADA/Lysine/Water 1,500 mg in 300 mls @ 200 mls/hr 01/04/23 01:00 01/07/23 02:58 Vancocin IV Infused Q12H MAYNOR Infusion Piperacillin Sod/Tazobactam 50 mls @ 12.5 mls/hr 01/04/23 08:30 01/07/23 10:20 Sod 3.375 gm/ Sodium Chloride IV 12.5 mls/hr Q8H MAYNOR Administration Protocol Lorazepam 2 mg 01/04/23 08:05 01/04/23 22:21 Lorazepam 2 Mg/Ml Inj 1 Ml IVP 2 mg PRN PRN Administration WITHDRAWAL Protocol Morphine Sulfate 2 mg 01/03/23 23:23 01/07/23 02:59 Morphine 4 Mg/Ml Sdv 1 Ml IVP 2 mg Q4H PRN Administration SEVERE PAIN Multivitamins Therapeutic 1 tab 01/04/23 09:00 01/07/23 10:35 Multivitamin Therapeutic Tablet PO Not Given DAILY MAYNOR Ondansetron HCl 4 mg 01/03/23 23:23 01/06/23 08:25 Ondansetron 2 Mg/Ml Sdv 2 Ml IVP 4 mg Q8H PRN Administration vomiting, or N/V if npo Potassium Chloride 20 meq 01/07/23 11:00 01/07/23 11:44 Potassium Chloride Er 20 Meq Tablet PO 20 meq Q12H MAYNOR Administration Prednisone 40 mg 01/07/23 09:00 01/07/23 10:20 Prednisone 20 Mg Tablet PO 40 mg DAILY MAYNOR Administration Sodium Chloride 1 spray 01/04/23 13:13 01/04/23 13:22 Saline Nasal [place] 44ml Btl NASAL 1 spray PRN PRN Administration DRYNESS Thiamine Mononitrate 100 mg 01/04/23 09:00 01/07/23 10:35 Thiamine 100 Mg Tablet PO Not Given DAILY MAYNOR PFSH Acute PFSH: Medical History Prostate cancer Pulmonary embolism -noted small PE in LLL on CTA PE; no evidence of cor pulmonale -on bridging anticoagulation with Lovenox and Coumadin; INR suptherapeutic. Patient has been refusing the injections. Has had issues with compliance so will switch to Eliquis -daily INR -risk of fall with hx of EtOH abuse; may not be a good candidate for longer term anticoagulation Surgical History H/O prostatectomy History of umbilical hernia repair Status post colonoscopy Vitals/I&O/Wt Last Vital Signs Temp 98.6 F 01/07/23 12:54 Pulse 89 01/07/23 12:54 Resp 16 01/07/23 12:54 BP 160/107 01/07/23 12:54 Pulse Ox 94 01/07/23 12:54 O2 Del Method Room Air 01/07/23 12:54 O2 Flow Rate 4 01/05/23 06:00 FiO2 4 01/05/23 04:00 01/06/23 01/07/23 01/07/23 22:59 06:59 14:59 Intake Total 1310 / 1840 350 / 2190 Output Total 1700 / 2950 1200 / 4150 Balance -390 / -1110 -850 / -1960 Physical Exam Narrative: General : Patient is well developed , no acute distress, oriented x3 Head : Normal cephalic, a-traumatic. Ears : Pinnae and external canal are normal. Hearing is normal. Eyes : PERRLA, Sclera and injection are normal. No conjunctival discharge. Nose : Mucous membranes are without erythema. Throat : buccal mucosa is normal, gums are without significant recession or hypertrophy. Lungs : Equal chest rise bilaterally, no use of accessory muscles, trachea is midline. Cor : Rate and rhythm are normal. Abdomen : Soft, ND, NT, no g/r/m Extremities : Edema to the bilateral lower extremities. There is some cellulitis as well. There is a lot of crusting over the legs Back : non-tender to palpation, no CVA tenderness. Neuro : CN II - XII intact, Upper and lower extremities have equal and full strength Urinary Catheter Management: Jeffery: Cath Placed During This Visit: yes Reason for Continuing Indwelling Catheter: Acute Urinary Retention or Obstruction Urinary Catheter Date of Insertion: 01/04/23 Urinary Catheter Time of Insertion: 01:20 Data 01/07/23 07:55 01/07/23 07:55 A&P Assessment and plan (1) Lymphedema: Plan 2 OR tomorrow for debridement of bilateral lower extremities and application of Unna boots Risk and benefits of the procedure, including but not limited to scar, numbness, pain, infection, need for repeat procedure, were explained to the patient. He is understanding the risks and wishes to proceed. Coding Level of Care Code 66521 Diagnoses Lymphedema I89.0
[2023-01-05] MEDS: dexamethasone 10 mg/mL INJ 6 MG IVP (17:18)
[2023-01-05] MEDS: enoxaparin 40 mg/0.4 mL Syringe SUBCUT (17:18)
--- NOTE | 2023-01-05 20:04 | PC.NURSE ---
Transferred to [place] @ approximately 1929.
[2023-01-05] MEDS: acetaminophen 325 mg Tablet 650 MG PO (22:30)
[2023-01-06] VITALS (13 sets, daily range): BP systolic 144–167; BP diastolic 70–81; PULSE 71–87; RESP 16–18; TEMP 36.3–37.1; O2SAT 93–98
[2023-01-06] MEDS: piperacillin-tazobactam 3.375 GM in sodium chloride 0.9% (plus) 50 ML IV ×3 (00:31→15:55)
[2023-01-06] MEDS: HYDROmorphone 1 mg/mL INJ 1 mL IVP (00:56)
[2023-01-06] MEDS: vancomycin 1,500 MG/300 ML PIGGYBACK 200 MG IV ×2 (00:58→13:58)
[2023-01-06] MEDS: FUROsemide 40 mg Tablet 80 MG PO (06:01)
[2023-01-06] MEDS: aspirin 81 mg EC Tablet PO (06:02)
[2023-01-06] MEDS: thiamine 100 mg Tablet PO (08:03)
[2023-01-06] MEDS: multivitamin therapeutic Tablet 1 TAB PO (08:04)
[2023-01-06] MEDS: folic acid 1 mg Tablet PO (08:04)
[2023-01-06] MEDS: acetaminophen 325 mg Tablet 650 MG PO ×3 (08:18→21:20)
[2023-01-06] MEDS: ondansetron 2 mg/ML SDV 2 mL 4 MG IVP (08:25)
[2023-01-06 11:07] LABS: Basophils % 0.1 %; Eosinophils % 0.3 %; Hematocrit 44.3 % (42.0-52.0); Hemoglobin 14.6 g/dL (11.7-16.6); Lymphocytes # 1.2 10^3/uL (0.8-4.8); Lymphocytes % 8.7 %; Mean Corpuscular Hemoglobin 30.3 pg (28.0-34.0); Mean Corpuscular Volume 91.9 fl (80-94); Mean Platelet Volume 8.4 fL (7.4-10.4); Monocytes # 0.9 10^3/uL (0.2-0.9); Monocytes % 6.4 %; Neutrophils # 11.14 10^3/uL (1.8-7.7); Neutrophils % 83.4 %; Nucleated Red Blood Cells % 0 %; Platelet Count 292 10^3/cmm (130-400); Red Blood Count 4.82 10^6/uL (4.1-5.3); Red Cell Distribution Width 14.9 % (12.1-15.1); White Blood Count 13.4 10^3/uL (4.0-10.0)
[2023-01-06 11:19] LABS: INR 1.09 (0.8-1.2)
[2023-01-06 11:26] LABS: Alanine Aminotransferase 12 U/L (0-41); Albumin Level 3.5 g/dL (3.5-5.2); Alkaline Phosphatase 97 U/L (40-130); Anion Gap 14.4 (5-19); Aspartate Amino Transferase 23 U/L (0-40); Blood Urea Nitrogen 17 mg/dL (8-23); C Reactive Protein 57.2 mg/L (0.0-4.9); Calcium 8.9 mg/dL (8.5-10.5); Carbon Dioxide 30 mmol/L (22-29); Chloride 98 mmol/L (98-107); Globulin 3.9 g/dL (1.3-4.6); Glomerular Filtration Rate 135.2 mL/min (90-130); Glucose 157 mg/dL (65-115); Magnesium 1.9 mg/dL (1.7-2.3); Osmolality Calculated 293 mOsm/kg (285-295); Phosphorus 2.4 mg/dL (2.5-4.5); Potassium 3.4 mmol/L (3.5-5.1); Sodium 139 mmol/L (136-145); Total Bilirubin 0.6 mg/dL (0.15-1.2); Total Protein 7.4 g/dL (6.6-8.7)
[2023-01-06 11:27] LABS: Lactate (Lactic Acid level) 1.2 mmol/L (0.5-2.2)
[2023-01-06 11:36] LABS: NT Pro B Type Natriuretic Pept 1785 pg/mL (0-125); Procalcitonin 0.09 ng/mL (0-0.5)
[2023-01-06 11:47] LABS: Creatine Phosphokinase 120 U/L (39-308)
--- NOTE | 2023-01-06 13:23 | PM.PN ---
Subjective Subjective: Patient has no change in his symptoms. He does report being anxious about going to the operating room Vitals/I&O/Wt Last Vital Signs Temp 98.6 F 01/07/23 12:54 Pulse 89 01/07/23 12:54 Resp 16 01/07/23 12:54 BP 160/107 01/07/23 12:54 Pulse Ox 94 01/07/23 12:54 O2 Del Method Room Air 01/07/23 12:54 O2 Flow Rate 4 01/05/23 06:00 FiO2 4 01/05/23 04:00 01/06/23 01/07/23 01/07/23 22:59 06:59 14:59 Intake Total 1310 / 1840 350 / 2190 Output Total 1700 / 2950 1200 / 4150 Balance -390 / -1110 -850 / -1960 Physical Exam Narrative: General: No acute distress, awake alert and oriented x3 Extremities: Lower extremities with lymphedema and foul-smelling drainage Urinary Catheter Management: Jeffery: Cath Placed During This Visit: yes Reason for Continuing Indwelling Catheter: Acute Urinary Retention or Obstruction Urinary Catheter Date of Insertion: 01/04/23 Urinary Catheter Time of Insertion: 01:20 Data 01/07/23 07:55 01/07/23 07:55 A&P Assessment and plan (1) Lymphedema: Plan Unable to go to OR today To OR tomorrow for debridement of bilateral lower extremities and application of Unna boots Risk and benefits of the procedure, including but not limited to scar, numbness, pain, infection, need for repeat procedure, were explained to the patient. He is understanding the risks and wishes to proceed. Attestations Medical Necessity Statement*: per primary Coding Level of Care Code 14499 Diagnoses Lymphedema I89.0
[2023-01-06] MEDS: morphine 4 mg/mL SDV 1 mL 2 MG IVP ×3 (13:28→22:15)
[2023-01-06 15:07] LABS: Leukemia Profile (BBPL) See Report; Lymphoma Profile (BBPL) See Report
[2023-01-06] MEDS: ALPRAZolam 0.5 mg Tablet PO (15:55)
[2023-01-06] MEDS: enoxaparin 40 mg/0.4 mL Syringe SUBCUT (18:07)
[2023-01-06] MEDS: dexamethasone 10 mg/mL INJ 6 MG IVP (18:07)
--- NOTE | 2023-01-06 18:58 | P.PN_ITS ---
Subjective Subjective: Patient was seen this morning, he tells me that he feels a lot better he feels that his legs are getting better and he is anxious about having a debridement, denies any fevers, denies any chills, continues to have weeping edema bilateral lower extremity, he ambulated with physical therapy he did report feeling a bit short of breath Vitals/I&O/Wt Last Vital Signs Temp 97.8 F 01/06/23 15:50 Pulse 73 01/06/23 15:50 Resp 18 01/06/23 18:08 BP 153/70 01/06/23 15:50 Pulse Ox 94 01/06/23 18:08 O2 Del Method Room Air 01/06/23 15:50 O2 Flow Rate 4 01/05/23 06:00 FiO2 4 01/05/23 04:00 01/06/23 01/06/23 01/06/23 06:59 14:59 22:59 Intake Total 1070 / 2556.1219 530 / 530 780 / 1310 Output Total 800 / 3400 1250 / 1250 750 / 2000 Balance 270 / -843.8781 -720 / -720 30 / -690 Weight last 48 hrs Weight 123.831 kg Physical Exam Const: COMMON NORMALS: no acute distress and patient oriented x3 Resp: COMMON NORMALS: normal respiratory effort, No retractions, No use of accessory muscles and clear to auscultation bilaterally AUSCULTATION: clear to auscultation bilaterally Cardio: COMMON NORMALS: regular rate, regular rhythm, S1 normal heart sound present and S2 normal heart sound present RATE: regular rate RHYTHM: regular rhythm HEART SOUNDS: S1 normal heart sound present and S2 normal heart sound present GI: COMMON NORMALS: Normal to inspection, nondistended, normoactive bowel soun ds present and non-tender Neuro: COMMON NORMALS: patient oriented x3 Psych: COMMON NORMALS: mental status grossly normal Skin: NARRATIVE SKIN EXAM: Bilateral lower extremity, weeping cellulitis, Urinary Catheter Management: Jeffery: Cath Placed During This Visit: yes Reason for Continuing Indwelling Catheter: Other Urinary Catheter Date of Insertion: 01/04/23 Urinary Catheter Time of Insertion: 01:20 Data 01/06/23 10:51 01/06/23 10:51 A&P Assessment and plan (1) Pulmonary embolism: Qualifiers: Pulmonary embolism type: single subsegmental (without acute cor pulmonale) Qualified Code(s): I26.93 - Single subsegmental pulmonary embolism without acute cor pulmonale (2) Lymphedema: (3) Hypertension: (4) Hypokalemia: (5) Cellulitis: (6) Hyponatremia: (7) Bladder mass: (8) Hematuria: (9) Lactic acidosis: (10) Acute respiratory failure with hypoxia and hypercapnia: (11) COPD exacerbation: (12) Folic acid deficiency: (13) Obesity, morbid: (14) Sepsis: (15) Obstructive sleep apnea: (16) NSTEMI (non-ST elevated myocardial infarction): (17) Alcohol withdrawal: (18) CHF exacerbation: Plan #Acute hypoxic hypercarbic respiratory failure -Likely secondary to underlying COPD exacerbation, some component of fluid overload, diastolic and systolic CHF Plan -Currently on medical floors -Recommend BiPAP therapy -Off Precedex -Decadron -1 dose Lasix today, with potassium -Is on broad-spectrum antibiotic therapy -Follow blood cultures, urine cultures #Systolic and diastolic CHF exacerbation -Diuresis as above #Cellulitis, chronic lymphedema bilateral lower extremities with foul-smelling discharge, cannot rule out underlying abscess -Continue broad-spectrum biotic therapy -Continue vancomycin, Zosyn -Order x-rays bilateral lower extremities -Consult general surgery currently n.p.o. for debridement #Sepsis, resolved -Secondary cellulitis -Due to elevated white count, elevated lactic acid, hypoxia, elevated D-dimer, elevated troponins #NSTEMI -Likely type II from supply demand ischemia from respiratory failure -Serial EKGs, serial troponins, telemetry monitoring -No chest pain complaints -Cardiac echo 1.? Technically difficult study ?2.? Diffuse hypokinesia of the left-ventricule with a diminished ?ejection fraction of around 48%. ?3.? Diffuse hypokinesia of the right ventricle with slightly ?diminished ejection fraction.? The right ventricle appears to be ?mildly dilated ?3.? Even with echo contrast, study quality is compromised -We will need a cardiac evaluation as outpatient #History of pulmonary embolism not a candidate for anticoagulation due to high fall risk secondary to alcohol abuse history -CT angiogram negative for pulmonary embolism -Bilateral venous ultrasound negative for DVT -Given his history of PEs over 3 years ago, it was his first PE, unprovoked, with his history of alcoholism, history of falls, he is not on anticoagulation, CT angiogram negative for pulm nails him, venous ultrasound negative for DVT discussed risk and benefits of anticoagulation, he voiced understanding, all question answered, will discontinue full dose anticoagulation for now #Alcohol withdrawal -[facility] protocol #Hypertension #History of sacral pressure ulcer #Hyponatremia #Hypokalemia #Dehydration #High anion gap metabolic acidosis -Likely starvation ketosis for alcoholism #Lactic acidosis -From respiratory failure, cellulitis, possible pulmonary emboli #Widespread lymphadenopathy 1. ? There is a 1.4 cm area of increased attenuation at the left posterolateral margin of the urinary bladder in the region of the left UVJ/trigone on series 4, image 88. Findings are concerning for malignancy and/or metastatic disease. Direct visualization is suggested for further evaluation if clinically indicated. 2. ? Redemonstration of multiple enlarged inguinal, iliac chain, and periaortic lymph nodes. Findings are concerning for metastatic disease however other etiologies including lymphoma are also consideration. Correlate and follow-up as clinically indicated. -We will need to follow-up with hematology oncology as outpatient -Order leukemia panel, ordered lymphoma panel #History of prostate cancer #Possible bladder mass 1. ? There is a 1.4 cm area of increased attenuation at the left posterolateral margin of the urinary bladder in the region of the left UVJ/trigone on series 4, image 88. Findings are concerning for malignancy and/or metastatic disease. Direct visualization is suggested for further evaluation if clinically indicated. 2. ? Redemonstration of multiple enlarged inguinal, iliac chain, and periaortic lymph nodes. Findings are concerning for metastatic disease however other etiologies including lymphoma are also consideration. Correlate and follow-up as clinically indicated. -Will need to follow-up with urology as outpatient #Sleep apnea, GORDON #Obesity Full code SCDs Lovenox for DVT prophylaxis PT OT Plan for today, debridement today, continue broad-spectrum antibiotic therapy, diuresis, up out of bed, BiPAP therapy, serial exacerbation of Decadron, CHF exacerbation systolic diastolic, on diuretic therapy, continue antibiotics for cellulitis Attestations Medical Necessity Statement*: Patient requires hospitalization for fluid overload, weeping edema requiring diuresis, Decadron therapy for COPD exacerbation, cellulitis requiring antibiotics, possible debridement Diagnoses Pulmonary embolism I26.93 Pulmonary embolism type: single subsegmental (without acute cor pulmonale) Lymphedema I89.0 Hypertension I10 Hypokalemia E87.6 Cellulitis L03.90 Hyponatremia E87.1 Bladder mass N32.89 Hematuria R31.9 Lactic acidosis E87.20 Acute respiratory failure with hypoxia and hypercapnia J96.01; J96.02 COPD exacerbation J44.1 Folic acid deficiency E53.8 Obesity, morbid E66.01 Sepsis A41.9 Obstructive sleep apnea G47.33 NSTEMI (non-ST elevated myocardial infarction) I21.4 Alcohol withdrawal F10.939 CHF exacerbation I50.9
[2023-01-06] MEDS: potassium chloride ER 20 mEq Tablet 40 MEQ PO (21:17)
[2023-01-06] MEDS: atorvastatin 40 mg Tablet PO (21:18)
[2023-01-06] MEDS: FUROsemide 10 mg/mL SDV 4mL 40 MG IVP (21:29)
[2023-01-07] VITALS (20 sets, daily range): BP systolic 122–169; BP diastolic 68–107; PULSE 57–89; RESP 16–20; TEMP 36.2–37; O2SAT 92–97
[2023-01-07] MEDS: vancomycin 1,500 MG/300 ML PIGGYBACK 200 MG IV ×2 (01:06→16:07)
[2023-01-07] MEDS: piperacillin-tazobactam 3.375 GM in sodium chloride 0.9% (plus) 50 ML IV ×3 (01:07→18:05)
[2023-01-07] MEDS: morphine 4 mg/mL SDV 1 mL 2 MG IVP ×2 (02:59→15:58)
[2023-01-07] MEDS: aspirin 81 mg EC Tablet PO (06:18)
[2023-01-07 08:09] LABS: Basophils % 0.2 %; Eosinophils % 0.2 %; Hematocrit 45.4 % (42.0-52.0); Hemoglobin 14.9 g/dL (11.7-16.6); Lymphocytes # 1.4 10^3/uL (0.8-4.8); Lymphocytes % 11.5 %; Mean Corpuscular HGB Conc 32.8 g/dL (30.0-36.0); Mean Corpuscular Hemoglobin 30.3 pg (28.0-34.0); Mean Corpuscular Volume 92.5 fl (80-94); Mean Platelet Volume 8.1 fL (7.4-10.4); Monocytes # 0.6 10^3/uL (0.2-0.9); Monocytes % 5.2 %; Neutrophils # 9.82 10^3/uL (1.8-7.7); Neutrophils % 82.1 %; Nucleated Red Blood Cells % 0 %; Platelet Count 282 10^3/cmm (130-400); Red Blood Count 4.91 10^6/uL (4.1-5.3); Red Cell Distribution Width 14.6 % (12.1-15.1)
[2023-01-07 08:30] LABS: Alanine Aminotransferase 15 U/L (0-41); Albumin Level 3.4 g/dL (3.5-5.2); Alkaline Phosphatase 95 U/L (40-130); Anion Gap 10.9 (5-19); Aspartate Amino Transferase 22 U/L (0-40); Blood Urea Nitrogen 19 mg/dL (8-23); C Reactive Protein 24.5 mg/L (0.0-4.9); Calcium 8.9 mg/dL (8.5-10.5); Carbon Dioxide 33 mmol/L (22-29); Chloride 97 mmol/L (98-107); Globulin 4.1 g/dL (1.3-4.6); Glomerular Filtration Rate 135.2 mL/min (90-130); Glucose 136 mg/dL (65-115); Osmolality Calculated 288 mOsm/kg (285-295); Phosphorus 3.5 mg/dL (2.5-4.5); Potassium 3.9 mmol/L (3.5-5.1); Sodium 137 mmol/L (136-145); Total Bilirubin 0.6 mg/dL (0.15-1.2); Total Protein 7.5 g/dL (6.6-8.7)
[2023-01-07 08:37] LABS: NT Pro B Type Natriuretic Pept 1422 pg/mL (0-125); Procalcitonin 0.07 ng/mL (0-0.5)
[2023-01-07] MEDS: predniSONE 20 mg Tablet 40 MG PO (10:20)
--- NOTE | 2023-01-07 10:43 | PC.SOCIAL ---
IMM Update pg 2 of IMM updated and reviewed w/ patient. Copy provided and copy dated, initialed and placed in chart.
--- NOTE | 2023-01-07 10:59 | PM.OP ---
Operative Report Date of procedure: February 06, 2023 Pre-op diagnosis: Lymphedema, cellulitis and hyperkeratosis to bilateral legs Post-op diagnosis: same Procedure done: Blunt debridement of bilateral legs, each leg was debrided for an area of approximately 35 cm x 35 cm (2450 cm total) and application of Unna boots to bilateral lower extremities Surgeon: Dr. Elder Delarosa, DO Anesthesia: General Estimated blood loss (mL): 2 Complications: None apparent Brief History: This is a very pleasant 67-year-old gentleman with hyperkeratosis, cellulitis and lymphedema of his bilateral lower extremities. Blunt debridement and application of Unna boots is indicated. The risk and benefits were explained and documented. Procedure: Patient was wheeled in operative room and placed on the OR table in supine position. General endotracheal intubation was achieved by the department anesthesia. A timeout was performed. All present were in agreement. The bilateral lower extremities were inspected prepped and draped in usual sterile fashion. There was a thick layer of hyperkeratosis on the bilateral legs. This was somewhat difficult Pawel and meticulously removed bluntly using the edge of a malleable. Once all of the hyperkeratotic tissue was removed, a plastic bristled scrub brush was used to further debride the tissue. Unna boots were then applied in the typical fashion bilaterally. Patient tolerated procedure well and was wheeled into the postop anesthesia care unit in good condition.
[2023-01-07] MEDS: potassium chloride ER 20 mEq Tablet PO ×2 (11:44→23:20)
[2023-01-07] MEDS: amlodipine 10 mg Tablet PO (11:44)
[2023-01-07] MEDS: FUROsemide 10 mg/mL SDV 4mL 40 MG IVP ×2 (11:44→22:52)
--- NOTE | 2023-01-07 11:45 | PC.OT ---
OT TREATMENT HELD TODAY DUE TO SCHEDULED SURGERY
--- NOTE | 2023-01-07 12:07 | ANES.PREANE2 ---
Pre-Anesthetic Assessment Height/Weight: Height 1.68 m Weight 123.831 kg Temp Pulse Resp BP Pulse Ox O2 Del Method O2 Flow Rate 97.5 F L 72 17 160/89 97 Room Air 4 01/07/23 11:56 01/07/23 11:56 01/07/23 11:56 01/07/23 11:56 01/07/23 11:56 01/07/23 07:25 01/05/23 06:00 FiO2 4 01/05/23 04:00 Operation Date: 01/07/23 12:30 Proposed Procedures p Debridement(Bilateral) - Elder Delarosa DO Familial anesthetic complications: None Was Beta Meggan taken within 24 hours: N/A Was Clonidine taken within 24 hours: N/A Last intake: Intake Last Liquid Date 01/05/23 Last Liquid Time 23:30 Last Solid Date 01/05/23 Last Solid Time 23:30 Social Alcohol and Tobacco Exam alert, oriented x 3, clear to auscultation bilaterally and regular rate & rhythm Airway Mallampati: Class IV Dentition: chipped Pulmonary Chronic Obstructive Pulmonary Disease and Sleep Apnea PE CV/HEM Congestive Heart Failure, Hypertension and Myocardial Infarction Metabolic Morbid Obesity Anesthetic Plan ASA status: 4 Anesthesia: General Risk of > 500 ml blood loss (7ml/kg in children): No Medications/Allergies Home Medications Medication Instructions Recorded Confirmed Last Taken Type amlodipine 10 mg tablet 10 mg PO QAM 07/28/19 01/04/23 09/27/20 06:00 History cyclobenzaprine 5 mg tablet 5 mg PO TID PRN muscle spasm #12 09/27/20 01/04/23 Unknown Rx tabs furosemide 80 mg tablet 80 mg PO QAM 09/27/20 01/04/23 09/26/20 History acetaminophen 500 mg tablet 1,000 mg PO Q6H PRN Pain 01/04/23 01/04/23 Unknown History albuterol sulfate 90 mcg/actuation 2 puff inhalation Q6H PRN 01/04/23 01/04/23 Unknown History aerosol inhaler Shortness Of Breath aspirin 81 mg tablet,delayed 81 mg PO QAM 01/04/23 01/04/23 Unknown History release naproxen 250 mg tablet 250 mg PO BID PRN Pain 01/04/23 01/04/23 Unknown History oxycodone-acetaminophen 5 mg-325 1 tab PO Q8H PRN Pain 01/04/23 01/04/23 Unknown History mg tablet Allergies Allergy/AdvReac Type Severity Reaction Status Date / Time No Known Allergies Allergy Verified 01/04/23 08:17 Current Medications Generic Name Dose Route Start Last Admin Trade Name Freq PRN Reason Stop Dose Admin Acetaminophen 650 mg 01/03/23 23:23 01/06/23 21:20 Acetaminophen 325 Mg Tablet PO 650 mg Q6H PRN Administration Mild/Mod Pain Or Temp >/= 101 Albuterol/Ipratropium 3 ml 01/03/23 23:23 01/04/23 14:42 Ipratropium-Albuterol 3 Ml Neb INHALATION 3 ml Q6H PRN Administration SHORTNESS OF BREATH Alprazolam 0.5 mg 01/06/23 15:43 01/06/23 15:55 Alprazolam 0.5 Mg Tablet PO 0.5 mg Q24H PRN Administration ANXIETY Amlodipine Besylate 10 mg 01/07/23 10:50 01/07/23 11:44 Amlodipine 10 Mg Tablet PO 10 mg DAILY MAYNOR Administration Aspirin 81 mg 01/06/23 06:00 01/07/23 06:18 Aspirin 81 Mg Ec Tablet PO 81 mg QAM MAYNOR Administration Atorvastatin Calcium 40 mg 01/06/23 21:00 01/06/23 21:18 Atorvastatin 40 Mg Tablet PO 40 mg BEDTIME MAYNOR Administration Enoxaparin Sodium 40 mg 01/05/23 18:00 01/06/23 18:07 Enoxaparin 40 Mg/0.4 Ml Syringe SUBCUT 40 mg Q24H MAYNOR Administration Folic Acid 1 mg 01/04/23 09:00 01/07/23 10:35 Folic Acid 1 Mg Tablet PO Not Given DAILY MAYNOR Furosemide 40 mg 01/07/23 11:00 01/07/23 11:44 Furosemide 10 Mg/Ml Sdv 4ml IVP 01/07/23 23:01 40 mg Q12H MAYNOR Administration Vancomycin/PEG/NADA/Lysine/Water 1,500 mg in 300 mls @ 200 mls/hr 01/04/23 01:00 01/07/23 02:58 Vancocin IV Infused Q12H MAYNOR Infusion Piperacillin Sod/Tazobactam 50 mls @ 12.5 mls/hr 01/04/23 08:30 01/07/23 10:20 Sod 3.375 gm/ Sodium Chloride IV 12.5 mls/hr Q8H MAYNOR Administration Protocol Lorazepam 2 mg 01/04/23 08:05 01/04/23 22:21 Lorazepam 2 Mg/Ml Inj 1 Ml IVP 2 mg PRN PRN Administration WITHDRAWAL Protocol Morphine Sulfate 2 mg 01/03/23 23:23 01/07/23 02:59 Morphine 4 Mg/Ml Sdv 1 Ml IVP 2 mg Q4H PRN Administration SEVERE PAIN Multivitamins Therapeutic 1 tab 01/04/23 09:00 01/07/23 10:35 Multivitamin Therapeutic Tablet PO Not Given DAILY MAYNOR Ondansetron HCl 4 mg 01/03/23 23:23 01/06/23 08:25 Ondansetron 2 Mg/Ml Sdv 2 Ml IVP 4 mg Q8H PRN Administration vomiting, or N/V if npo Potassium Chloride 20 meq 01/07/23 11:00 01/07/23 11:44 Potassium Chloride Er 20 Meq Tablet PO 01/07/23 23:01 20 meq Q12H MAYNOR Administration Prednisone 40 mg 01/07/23 09:00 01/07/23 10:20 Prednisone 20 Mg Tablet PO 40 mg DAILY MAYNOR Administration Sodium Chloride 1 spray 01/04/23 13:13 01/04/23 13:22 Saline Nasal [place] 44ml Btl NASAL 1 spray PRN PRN Administration DRYNESS Thiamine Mononitrate 100 mg 01/04/23 09:00 01/07/23 10:35 Thiamine 100 Mg Tablet PO Not Given DAILY MAYNOR PFSH Anesthesia Medical History (Updated 01/06/23 @ 19:01 by Abhinav Benitez MD) Prostate cancer Pulmonary embolism -noted small PE in LLL on CTA PE; no evidence of cor pulmonale -on bridging anticoagulation with Lovenox and Coumadin; INR suptherapeutic. Patient has been refusing the injections. Has had issues with compliance so will switch to Eliquis -daily INR -risk of fall with hx of EtOH abuse; may not be a good candidate for longer term anticoagulation Surgical History H/O prostatectomy History of umbilical hernia repair Status post colonoscopy Data Anesthesia 01/07/23 07:55 01/07/23 07:55 Short CBC 07/12/23 07/13/23 Range/Units 10:51 07:55 WBC 13.4 H 12.0 H (4.0-10.0) 10^3/uL Hgb 14.6 14.9 (11.7-16.6) g/dL Hct 44.3 45.4 (42.0-52.0) % MCV 91.9 92.5 (80-94) fl Plt Count 292 282 (130-400) 10^3/cmm Neut % (Auto) 83.4 82.1 % Neut # (Auto) 11.14 H 9.82 H (1.8-7.7) 10^3/uL BMP 01/06/23 01/07/23 10:51 07:55 Sodium 139 137 Potassium 3.4 L 3.9 Chloride 98 97 L Carbon Dioxide 30 H 33 H BUN 17 19 Creatinine 0.6 L 0.6 L Glucose 157 H 136 H Calcium 8.9 8.9 Cardiac Enzymes 01/06/23 01/07/23 Range/Units 10:51 07:55 Creatine Kinase 120 (39-308) U/L NT-Pro-B Natriuret Pep 1785 H 1422 H (0-125) pg/mL Liver Function 01/06/23 01/07/23 Range/Units 10:51 07:55 Total Bilirubin 0.6 0.6 (0.15-1.2) mg/dL AST 23 22 (0-40) U/L ALT 12 15 (0-41) U/L Alkaline Phosphatase 97 95 (40-130) U/L Albumin 3.5 3.4 L (3.5-5.2) g/dL Coags 01/06/23 01/06/23 01/07/23 10:51 10:51 07:55 PT 14.40 INR 1.09 C-Reactive Protein 57.2 H 24.5 H Cardiac Studies: Echocardiogram 01/04/23 Echocardiogram Ultrasound 06/29/19
--- NOTE | 2023-01-07 13:26 | PM.PN ---
Vitals/I&O/Wt Last Vital Signs Temp 98.6 F 01/07/23 12:54 Pulse 89 01/07/23 12:54 Resp 16 01/07/23 12:54 BP 160/107 01/07/23 12:54 Pulse Ox 94 01/07/23 12:54 O2 Del Method Room Air 01/07/23 12:54 O2 Flow Rate 4 01/05/23 06:00 FiO2 4 01/05/23 04:00 01/06/23 01/07/23 01/07/23 22:59 06:59 14:59 Intake Total 1310 / 1840 350 / 2190 Output Total 1700 / 2950 1200 / 4150 Balance -390 / -1110 -850 / -1960 Physical Exam Urinary Catheter Management: Jeffery: Cath Placed During This Visit: yes Reason for Continuing Indwelling Catheter: Acute Urinary Retention or Obstruction Urinary Catheter Date of Insertion: 01/04/23 Urinary Catheter Time of Insertion: 01:20 Data 01/07/23 07:55 01/07/23 07:55 A&P Assessment and plan (1) Lymphedema: Plan Debridement of bilateral lower extremities and application of Unna boots Risk and benefits of the procedure, including but not limited to scar, numbness, pain, infection, need for repeat procedure, were explained to the patient. He is understanding the risks and wishes to proceed. Attestations Medical Necessity Statement*: Per primary Coding Level of Care Code Acute Code for Chg Fwd Diagnoses Lymphedema I89.0
[2023-01-07] MEDS: sodium chloride 0.9% 1,000 ML 30 ML IV (13:27)
[2023-01-07] MEDS: acetaminophen 325 mg Tablet 650 MG PO (16:05)
[2023-01-07] MEDS: enoxaparin 40 mg/0.4 mL Syringe SUBCUT (18:05)
--- NOTE | 2023-01-07 18:30 | PM.PN ---
Subjective Subjective: - Patient was seen this morning -He is agreeable to proceed with surgical intervention -Denies any chest pain, no shortness of breath he tells me his legs feel better -But continues to complain of weeping edema Vitals/I&O/Wt Last Vital Signs Temp 97.6 F 01/07/23 16:00 Pulse 76 01/07/23 16:00 Resp 17 01/07/23 16:00 BP 142/68 01/07/23 16:00 Pulse Ox 92 01/07/23 16:00 O2 Del Method Room Air 01/07/23 14:54 O2 Flow Rate 4 01/05/23 06:00 FiO2 4 01/05/23 04:00 01/07/23 01/07/23 01/07/23 06:59 14:59 22:59 Intake Total 350 / 2190 100 / 100 690 / 790 Output Total 1200 / 4150 Balance -850 / -1960 95 / 95 690 / 785 Physical Exam Const: COMMON NORMALS: no acute distress and patient oriented x3 Resp: COMMON NORMALS: normal respiratory effort, No retractions, No use of accessory muscles and clear to auscultation bilaterally AUSCULTATION: clear to auscultation bilaterally Cardio: COMMON NORMALS: regular rate, regular rhythm, S1 normal heart sound present and S2 normal heart sound present RATE: regular rate RHYTHM: regular rhythm HEART SOUNDS: S1 normal heart sound present and S2 normal heart sound present GI: COMMON NORMALS: Normal to inspection, nondistended, normoactive bowel sounds present and non-tender Extremity: NARRATIVE EXTREMITY EXAM: 2+ pitting edema Neuro: COMMON NORMALS: patient oriented x3 Psych: COMMON NORMALS: mental status grossly normal Urinary Catheter Management: Jeffery: Cath Placed During This Visit: yes Reason for Continuing Indwelling Catheter: Acute Urinary Retention or Obstruction Urinary Catheter Date of Insertion: 01/04/23 Urinary Catheter Time of Insertion: 01:20 Data 01/07/23 07:55 01/07/23 07:55 A&P Assessment and plan (1) Pulmonary embolism: Qualifiers: Pulmonary embolism type: single subsegmental (without acute cor pulmonale) Qualified Code(s): I26.93 - Single subsegmental pulmonary embolism without acute cor pulmonale (2) Lymphedema: (3) Hypertension: (4) Hypokalemia: (5) Cellulitis: (6) Hyponatremia: (7) Bladder mass: (8) Hematuria: (9) Lactic acidosis: (10) Acute respiratory failure with hypoxia and hypercapnia: (11) COPD exacerbation: (12) Folic acid deficiency: (13) Obesity, morbid: (14) Sepsis: (15) Obstructive sleep apnea: (16) NSTEMI (non-ST elevated myocardial infarction): (17) Alcohol withdrawal: (18) CHF exacerbation: Plan #Acute hypoxic hypercarbic respiratory failure -Likely secondary to underlying COPD exacerbation, some component of fluid overload, diastolic and systolic CHF exacerbation Plan -Currently on medical floors -Recommend BiPAP therapy as needed -On prednisone - Lasix 40 IV twice daily today -Is on broad-spectrum antibiotic therapy -Follow blood cultures, urine cultures #Systolic and diastolic CHF exacerbation -Diuresis as above #Cellulitis, chronic lymphedema bilateral lower extremities with foul-smelling discharge, cannot rule out underlying abscess -Continue broad-spectrum biotic therapy -Continue vancomycin, Zosyn -Consult general surgery currently n.p.o. for debridement today #Sepsis, resolved -Secondary cellulitis -Due to elevated white count, elevated lactic acid, hypoxia, elevated D-dimer, elevated troponins #NSTEMI -Likely type II from supply demand ischemia from respiratory failure -Serial EKGs, serial troponins, telemetry monitoring -No chest pain complaints -Cardiac echo 1.? Technically difficult study ?2.? Diffuse hypokinesia of the left-ventricule with a diminished ?ejection fraction of around 48%. ?3.? Diffuse hypokinesia of the right ventricle with slightly ?diminished ejection fraction.? The right ventricle appears to be ?mildly dilated ?3.? Even with echo contrast, study quality is compromised -We will need a cardiac evaluation as outpatient #History of pulmonary embolism not a candidate for anticoagulation due to high fall risk secondary to alcohol abuse history -CT angiogram negative for pulmonary embolism -Bilateral venous ultrasound negative for DVT -Given his history of PEs over 3 years ago, it was his first PE, unprovoked, with his history of alcoholism, history of falls, he is not on anticoagulation, CT angiogram negative for pulm nails him, venous ultrasound negative for DVT discussed risk and benefits of anticoagulation, he voiced understanding, all question answered, will discontinue full dose anticoagulation for now #Alcohol withdrawal -[facility] protocol #Hypertension #History of sacral pressure ulcer #Hyponatremia #Hypokalemia #Dehydration #High anion gap metabolic acidosis -Likely starvation ketosis for alcoholism #Lactic acidosis -From respiratory failure, cellulitis, possible pulmonary emboli #Widespread lymphadenopathy 1. ? There is a 1.4 cm area of increased attenuation at the left posterolateral margin of the urinary bladder in the region of the left UVJ/trigone on series 4, image 88. Findings are concerning for malignancy and/or metastatic disease. Direct visualization is suggested for further evaluation if clinically indicated. 2. ? Redemonstration of multiple enlarged inguinal, iliac chain, and periaortic lymph nodes. Findings are concerning for metastatic disease however other etiologies including lymphoma are also consideration. Correlate and follow-up as clinically indicated. -We will need to follow-up with hematology oncology as outpatient -Order leukemia panel, ordered lymphoma panel #History of prostate cancer #Possible bladder mass 1. ? There is a 1.4 cm area of increased attenuation at the left posterolateral margin of the urinary bladder in the region of the left UVJ/trigone on series 4, image 88. Findings are concerning for malignancy and/or metastatic disease. Direct visualization is suggested for further evaluation if clinically indicated. 2. ? Redemonstration of multiple enlarged inguinal, iliac chain, and periaortic lymph nodes. Findings are concerning for metastatic disease however other etiologies including lymphoma are also consideration. Correlate and follow-up as clinically indicated. -Will need to follow-up with urology as outpatient #Sleep apnea, GORDON #Obesity Full code SCDs Lovenox for DVT prophylaxis PT OT Plan for today, debridement today, continue broad-spectrum antibiotic therapy, diuresis today Lasix 40 IV twice daily, up out of bed, BiPAP therapy, spoke to patient, spoke to surgery, spoke to nursing staff Attestations Medical Necessity Statement*: Patient requires hospitalization for fluid overload, systolic and diastolic CHF cellulitis,, required debridement, Diagnoses Pulmonary embolism I26.93 Pulmonary embolism type: single subsegmental (without acute cor pulmonale) Lymphedema I89.0 Hypertension I10 Hypokalemia E87.6 Cellulitis L03.90 Hyponatremia E87.1 Bladder mass N32.89 Hematuria R31.9 Lactic acidosis E87.20 Acute respiratory failure with hypoxia and hypercapnia J96.01; J96.02 COPD exacerbation J44.1 Folic acid deficiency E53.8 Obesity, morbid E66.01 Sepsis A41.9 Obstructive sleep apnea G47.33 NSTEMI (non-ST elevated myocardial infarction) I21.4 Alcohol withdrawal F10.939 CHF exacerbation I50.9
[2023-01-07] MEDS: HYDROcodone-acetaminophen 7.5-325 mg Tablet 1 TAB PO ×2 (18:42→23:38)
[2023-01-07] MEDS: gabapentin 300 mg Capsule PO (18:42)
[2023-01-07] MEDS: HYDROmorphone 1 mg/mL INJ 1 mL 0.5 MG IVP ×2 (18:42→22:55)
[2023-01-07] MEDS: atorvastatin 40 mg Tablet PO (20:06)
[2023-01-08] VITALS (8 sets, daily range): BP systolic 136–141; BP diastolic 87–89; PULSE 64–83; RESP 14–20; TEMP 36.3–36.9; O2SAT 93–97
[2023-01-08] MEDS: piperacillin-tazobactam 3.375 GM in sodium chloride 0.9% (plus) 50 ML IV ×2 (01:05→09:47)
[2023-01-08] MEDS: aspirin 81 mg EC Tablet PO (05:13)
[2023-01-08] MEDS: vancomycin 1,500 MG/300 ML PIGGYBACK 200 MG IV (05:14)
[2023-01-08] MEDS: HYDROmorphone 1 mg/mL INJ 1 mL 0.5 MG IVP ×2 (05:41→08:23)
[2023-01-08 06:20] LABS: Basophils % 0.3 %; Eosinophils # 0.1 10^3/uL (0.0-0.8); Eosinophils % 0.4 %; Hematocrit 42.1 % (42.0-52.0); Hemoglobin 13.1 g/dL (11.7-16.6); Lymphocytes % 15.8 %; Mean Corpuscular HGB Conc 31.1 g/dL (30.0-36.0); Mean Corpuscular Hemoglobin 29.5 pg (28.0-34.0); Mean Corpuscular Volume 94.8 fl (80-94); Mean Platelet Volume 8.3 fL (7.4-10.4); Monocytes # 0.9 10^3/uL (0.2-0.9); Monocytes % 7.1 %; Neutrophils # 9.37 10^3/uL (1.8-7.7); Neutrophils % 74.6 %; Nucleated Red Blood Cells % 0 %; Platelet Count 254 10^3/cmm (130-400); Red Blood Count 4.44 10^6/uL (4.1-5.3); Red Cell Distribution Width 14.6 % (12.1-15.1); White Blood Count 12.6 10^3/uL (4.0-10.0)
[2023-01-08 06:41] LABS: Blood Urea Nitrogen 16 mg/dL (8-23); Carbon Dioxide 27 mmol/L (22-29); Chloride 89 mmol/L (98-107); Glomerular Filtration Rate 215.9 mL/min (90-130); Glucose 88 mg/dL (65-115); Magnesium 1.6 mg/dL (1.7-2.3); Osmolality Calculated 271 mOsm/kg (285-295); Sodium 130 mmol/L (136-145)
[2023-01-08] MEDS: predniSONE 20 mg Tablet 40 MG PO (09:46)
[2023-01-08] MEDS: amlodipine 10 mg Tablet PO (09:46)
[2023-01-08] MEDS: multivitamin therapeutic Tablet 1 TAB PO (09:46)
[2023-01-08] MEDS: folic acid 1 mg Tablet PO (09:46)
[2023-01-08] MEDS: thiamine 100 mg Tablet PO (09:46)
[2023-01-08] MEDS: HYDROcodone-acetaminophen 7.5-325 mg Tablet 1 TAB PO (09:47)
[2023-01-08] MEDS: potassium chloride ER 20 mEq Tablet 40 MEQ PO (11:00)
[2023-01-08] MEDS: FUROsemide 10 mg/mL SDV 4mL 40 MG IVP (11:09)
[2023-01-08] MEDS: ondansetron 2 mg/ML SDV 2 mL 4 MG IVP (11:09)
--- NOTE | 2023-01-08 12:04 | P.DS_ITS ---
Discharge Providers Date of Admission: 01/04/23 06:20 Date of Discharge: January 08, 2023 Attending Provider at Admission: Samantha Liu MD Attending Provider at Discharge: Abhinav Benitez MD Primary Care Provider: KAYLAN Kim Diagnoses at Discharge Discharge Diagnosis (1) Pulmonary embolism: Status: Acute Qualifiers: Pulmonary embolism type: single subsegmental (without acute cor pulmonale) Qualified Code(s): I26.93 - Single subsegmental pulmonary embolism without acute cor pulmonale Permanent problem details: -noted small PE in LLL on CTA PE; no evidence of cor pulmonale -on bridging anticoagulation with Lovenox and Coumadin; INR suptherapeutic. Patient has been refusing the injections. Has had issues with compliance so will switch to Eliquis -daily INR -risk of fall with hx of EtOH abuse; may not be a good candidate for longer term anticoagulation (2) Lymphedema: Status: Acute Permanent problem details: -has chronic lymphedema of bilateral LE -LE elevation and lymphedema wraps if appropriate -negative DVT per venous duplex (3) Hypertension: Status: Acute (4) Hypokalemia: Status: Acute (5) Cellulitis: Status: Acute (6) Hyponatremia: Status: Acute (7) Bladder mass: Status: Acute (8) Hematuria: Status: Acute (9) Lactic acidosis: Status: Acute (10) Acute respiratory failure with hypoxia and hypercapnia: Status: Acute (11) COPD exacerbation: Status: Acute (12) Folic acid deficiency: Status: Acute (13) Obesity, morbid: Status: Acute (14) Sepsis: Status: Acute (15) Obstructive sleep apnea: Status: Acute (16) NSTEMI (non-ST elevated myocardial infarction): Status: Acute (17) Alcohol withdrawal: Status: Acute (18) CHF exacerbation: Status: Acute Reason for Visit Reason for Visit: Cellulitis Hospital Course Hospital Course Satish Jones is a 67 year old male With past medical history of PE, prostate cancer, alcohol abuse, sacral pressure ulcer presented to the hospital with complaint of lower extremity swelling and redness.? He also has low back pain.? He says he went to urgent care was given pain medication which did not help.? Pain radiates down to his legs.? Patient does have chronic lymphedema and used to follow-up with wound care clinic about 3 years ago in 2019 but I do not see any other visits after that in the computer.? He does have a cellulitis of both bilateral lower extremities with weeping and foul-smelling drainage. When seen patient asleep, he is not very arousable. We will be checking An ABG. History was obtained from ER doc and chart, including nursing staff. On arrival to ED 145/104, respiratory 12, pulse 113, temperature 98.1, saturating 97% on room air. CT abdomen pelvis showed 1. ? There is a 1.4 cm area of increased attenuation at the left posterolateral margin of the urinary bladder in the region of the left UVJ/trigone on series 4, image 88. Findings are concerning for malignancy and/or metastatic disease. Direct visualization is suggested for further evaluation if clinically indicated. 2. ? Redemonstration of multiple enlarged inguinal, iliac chain, and periaortic lymph nodes. Findings are concerning for metastatic disease however other etiologies including lymphoma are also consideration. Correlate and follow-up as clinically indicated. 3. ? The hepatic parenchyma is diffusely hypoattenuating. Findings are compatible with hepatic steatosis which can be the result of a variety toxic, ischemic, and infectious insults to the liver, correlate and follow-up as clinically indicated. 4. ? Other chronic/incidental findings as described above WBC 9.7, hemoglobin 16.1, platelets 363, sodium 129, potassium 3.1, creatinine 0.7, lactic acid 4.2, C-reactive protein 52.3.? UA showed 2+ protein, 2+ blood, 10-15 RBCs, 15-25 squamous epithelial cells, 1+ bacteria. Patient was admitted to [facility] intensive care unit for acute hypoxic hypercarbic respiratory failure secondary to fluid overload, COPD exacerbation, mixed systolic and diastolic CHF exacerbation, requiring BiPAP therapy, antibiotic therapy, steroid therapy, diuretic therapy. Overall patient clinically improved, moved to general medical floors, off BiPAP, ambulated with physical therapy, discharged on Lasix 40 twice daily with potassium replacement therapy, prednisone burst, antibiotic therapy as below Patient had sepsis secondary to bilateral extremity cellulitis, requiring broad- spectrum antibiotic therapy, general surgery was consulted, underwent debridement of bilateral extremities, overall clinically improved, discharged on 7 days of antibiotic therapy, wound care through home health care, follow-up with general surgery as outpatient Patient had NSTEMI during his hospitalization, mixture of type I and type II NSTEMI, he did have sepsis from cellulitis and respiratory failure as above, however given his cardiac echocardiogram findings, with EF of 40%, diffuse hypokinesis of the right ventricle, there was concern for underlying cardiac etiology, he was managed with aspirin, statin, Coreg, no chest pain complaints, will be discharged with close follow-up with cardiology as outpatient for consideration of stress testing #History of pulmonary embolism not a candidate for anticoagulation due to high fall risk secondary to alcohol abuse history -CT angiogram negative for pulmonary embolism -Bilateral venous ultrasound negative for DVT -Given his history of PEs over 3 years ago, it was his first PE, unprovoked, with his history of alcoholism, history of falls, he is not on anticoagulation, CT angiogram negative for pulm nails him, venous ultrasound negative for DVT discussed risk and benefits of anticoagulation, he voiced understanding, all question answered, will discontinue full dose anticoagulation for now Widespread lymphadenopathy, and possible bladder mass #Widespread lymphadenopathy 1. ? There is a 1.4 cm area of increased attenuation at the left posterolateral margin of the urinary bladder in the region of the left UVJ/trigone on series 4, image 88. Findings are concerning for malignancy and/or metastatic disease. Direct visualization is suggested for further evaluation if clinically indicated. 2. ? Redemonstration of multiple enlarged inguinal, iliac chain, and periaortic lymph nodes. Findings are concerning for metastatic disease however other etiologies including lymphoma are also consideration. Correlate and follow-up as clinically indicated. -We will need to follow-up with hematology oncology as outpatient -Order leukemia panel, ordered lymphoma panel #History of prostate cancer #Possible bladder mass 1. ? There is a 1.4 cm area of increased attenuation at the left posterolateral margin of the urinary bladder in the region of the left UVJ/trigone on series 4, image 88. Findings are concerning for malignancy and/or metastatic disease. Direct visualization is suggested for further evaluation if clinically indicated. 2. ? Redemonstration of multiple enlarged inguinal, iliac chain, and periaortic lymph nodes. Findings are concerning for metastatic disease however other etiologies including lymphoma are also consideration. Correlate and follow-up as clinically indicated. -Will need to follow-up with urology as outpatient -I had a detailed discussion about patient's CT scan findings, he is adamant that he has had a work-up and biopsies of his inguinal lymph nodes which did not show any evidence of malignancy -He tells me that he has had extensive work-up through his primary care provider, extensive work-up through [facility] -For now he does not want to worry about it, nor does he want to follow-up with hematology oncology, he wants to focus on his legs -I advised of my concerns of the morbidity or mortality associate with a bladder mass, his widespread lymphadenopathy, certainly his cellulitis could could be a potential etiology behind his lymphadenopathy, but given his CT scan findings I would recommend for him to follow-up with urology and hematology oncology -However he declines -Discuss risks of not following up about widespread lymphadenopathy, bladder mass, morbidity or mortality associated he voiced understanding, all questions answered, declined to follow-up with specialist for now or even considering a biopsy Physical Exam Const: COMMON NORMALS: no acute distress and patient oriented x3 Resp: COMMON NORMALS: normal respiratory effort, No retractions, No use of accessory muscles and clear to auscultation bilaterally AUSCULTATION: clear to auscultation bilaterally Cardio: COMMON NORMALS: regular rate, regular rhythm, S1 normal heart sound present and S2 normal heart sound present RATE: regular rate RHYTHM: regular rhythm HEART SOUNDS: S1 normal heart sound present and S2 normal heart sound present GI: COMMON NORMALS: Normal to inspection, nondistended, normoactive bowel sounds present and non-tender Extremity: COMMON NORMALS: no pedal edema NARRATIVE EXTREMITY EXAM: Bilateral extremities wrapped Neuro: COMMON NORMALS: patient oriented x3 Psych: COMMON NORMALS: mental status grossly normal Urinary Catheter Management: Jeffery: Cath Placed During This Visit: yes Reason for Continuing Indwelling Catheter: Acute Urinary Retention or Obstruction Urinary Catheter Date of Insertion: 01/04/23 Urinary Catheter Time of Insertion: 01:20 Discharge Data Studies Completed and Pending Completed Studies During Hospitalization Category Date Time Status CT abdomen pelvis w con* [id number] Stat Cat Scan 01/03/23 19:[address] angio chest PE protcl [id number] Stat Cat Scan 01/05/23 08:02 Completed CXRP [XR chest 1V portable [id number]] Routine Exams 01/04/23 11:14 Completed XR chest 1V portable [id number] Routine Exams 01/04/23 13:59 Completed XR tibia fibula LT 2V [id number] Routine Exams 01/05/23 16:15 Completed XR tibia fibula RT 2V [id number] Routine Exams 01/05/23 16:15 [place] [id number] Stat Ultrasound 01/04/23 23:28 Completed CV. echo wo/w contrast [id number] Stat Ultrasound 01/04/23 23:28 Completed Pending at discharge Category Date Time Status Basic Metabolic Panel AM LABS Lab 01/09/23 04:00 Ordered Basic Metabolic Panel AM LABS Lab 01/10/23 04:00 Ordered Blood Culture Routine Lab 01/03/23 23:23 Results Complete Blood Count w/Auto AM LABS Lab 01/09/23 04:00 Ordered Complete Blood Count w/Auto AM LABS Lab 01/10/23 04:00 Ordered Magnesium AM LABS Lab 01/09/23 04:00 Ordered Magnesium AM LABS Lab 01/10/23 04:00 Ordered Radiology Impressions Abdomen/Pelvis CT 01/03/23 19:48 IMPRESSION: 1. There is a 1.4 cm area of increased attenuation at the left posterolateral margin of the urinary bladder in the region of the left UVJ/trigone on series 4, image 88. Findings are concerning for malignancy and/or metastatic disease. Direct visualization is suggested for further evaluation if clinically indicated. 2. Redemonstration of multiple enlarged inguinal, iliac chain, and periaortic lymph nodes. Findings are concerning for metastatic disease however other etiologies including lymphoma are also consideration. Correlate and follow-up as clinically indicated. 3. The hepatic parenchyma is diffusely hypoattenuating. Findings are compatible with hepatic steatosis which can be the result of a variety toxic, ischemic, and infectious insults to the liver, correlate and follow-up as clinically indicated. 4. Other chronic/incidental findings as described above. Chest X-Ray 01/04/23 13:59 IMPRESSION: Pulmonary hypoinflation without acute findings. Chest CTA 01/05/23 08:02 IMPRESSION: 1. No pulmonary artery embolism identified. 2. Bilateral lower lobe pulmonary partial/subsegmental atelectasis. 3. Coronary atherosclerosis. 4. Recommend nonemergent thyroid sonography for further evaluation of a right thyroid nodule. Tibia/Fibula X-Ray 01/05/23 16:15 IMPRESSION: 1. Diffuse soft tissue swelling. Cellulitis is likely. Clinical correlation is recommended. 2. No destructive bony process identified. Laboratory Results WBC 12.6 10^3/uL (4.0-10.0) H 01/08/23 05:22 RBC 4.44 10^6/uL (4.1-5.3) 01/08/23 05:22 Hgb 13.1 g/dL (11.7-16.6) 01/08/23 05:22 Hct 42.1 % (42.0-52.0) 01/08/23 05:22 MCV 94.8 fl (80-94) H 01/08/23 05:22 MCH 29.5 pg (28.0-34.0) 01/08/23 05:22 MCHC 31.1 g/dL (30.0-36.0) D 01/08/23 05:22 RDW 14.6 % (12.1-15.1) 01/08/23 05:22 Plt Count 254 10^3/cmm (130-400) 01/08/23 05:22 MPV 8.3 fL (7.4-10.4) 01/08/23 05:22 Neut % (Auto) 74.6 % 01/08/23 05:22 Lymph % (Auto) 15.8 % 01/08/23 05:22 [place] % (Auto) 7.1 % 01/08/23 05:22 Eos % (Auto) 0.4 % 01/08/23 05:22 Baso % (Auto) 0.3 % 01/08/23 05:22 Neut # (Auto) 9.37 10^3/uL (1.8-7.7) H 01/08/23 05:22 Lymph # (Auto) 2.0 10^3/uL (0.8-4.8) 01/08/23 05:22 [place] # (Auto) 0.9 10^3/uL (0.2-0.9) 01/08/23 05:22 Eos # (Auto) 0.1 10^3/uL (0.0-0.8) 01/08/23 05:22 Baso # (Auto) 0.0 10^3/uL (0.0-0.1) 01/08/23 05:22 Nucleated RBC % (auto) 0 % 01/08/23 05:22 Nucleated RBCs # 0.0 /100WBC 01/08/23 05:22 Peripher Smr Path Cons Sent for review 01/04/23 06:39 ESR 50 mm/hr (0-10) H 01/04/23 06:39 PT 14.40 SECONDS (12.1-14.9) 01/06/23 10:51 INR 1.09 (0.8-1.2) 01/06/23 10:51 APTT 52.2 SECONDS (23.9-36.7) H D 01/05/23 09:00 D-Dimer 1.44 ug/mIFEU (0-0.59) H 01/04/23 06:39 Specimen Type Arterial 01/05/23 04:00 Sample Site Radial, right 01/05/23 04:00 ABG pH 7.39 (7.35-7.45) 01/05/23 04:00 ABG pCO2 48.3 mmHg (35-45) H 01/05/23 04:00 ABG pO2 75.7 mmHg (80.0-100.0) L 01/05/23 04:00 ABG HCO3 28.9 mmol/L (22-26) H 01/05/23 04:00 ABG O2 Saturation 98.3 01/04/23 17:20 ABG Base Excess 2.9 mmol/L (-2.0-2.0) H 01/05/23 04:00 Toro Test Pos 01/05/23 04:00 A-a O2 Gradient 4.6 mmHg (5-10) L 01/04/23 17:20 Hematocrit 45.4 % (42-52) 01/05/23 04:00 Hgb O2 Saturation 95.5 % (95-100) 01/04/23 17:20 Carboxyhemoglobin 2.0 %THgb (0.4-20.1) 01/04/23 17:20 Methemoglobin 0.8 % (0.4-1.5) 01/04/23 17:20 Total Hemoglobin 14.0 g/dL (14-18) 01/04/23 17:20 Sodium 140.0 mmol/L (131-143) 01/04/23 17:20 Potassium 3.6 mmol/L (3.5-5.0) 01/04/23 17:20 Glucose 149.0 mg/dL (70-115) H 01/04/23 17:20 Ionized Calcium 1.2 mmol/L (1.1-1.4) 01/04/23 17:20 O2 Delivery Device Nc 01/05/23 04:00 O2 Liters/Min 4.0 % 01/05/23 04:00 FiO2 30.0 % 01/04/23 17:20 Tidal Volume 0.55 01/04/23 17:20 PEEP 10.0 cmH20 01/04/23 17:20 [employer] Ex[employer] Emissions Technician ID judd 01/05/23 04:00 Sodium 130 mmol/L (136-145) L 01/08/23 05:22 Potassium 3.0 mmol/L (3.5-5.1) L 01/08/23 05:22 Chloride 89 mmol/L (98-107) L 01/08/23 05:22 Carbon Dioxide 27 mmol/L (22-29) 01/08/23 05:22 Anion Gap 17.0 (5-19) 01/08/23 05:22 BUN 16 mg/dL (8-23) 01/08/23 05:22 Creatinine 0.4 mg/dL (0.7-1.2) L 01/08/23 05:22 GFR Calculation 215.9 mL/min (90-130) H 01/08/23 05:22 Glucose 88 mg/dL (65-115) 01/08/23 05:22 Estimat Average Glucose 126 01/03/23 20:04 Hemoglobin A1c 6.0 % (4.0-6.0) 01/03/23 20:04 Calculated Osmolality 271 mOsm/kg (285-295) L 01/08/23 05:22 Lactic Acid 4.3 mmol/L (0.5-2.2) H* 01/04/23 06:39 Lactic Acid (Sepsis) 3.4 mmol/L (0.5-2.2) H 01/04/23 09:14 Lactate 1.2 mmol/L (0.5-2.2) 01/06/23 10:51 Calcium 7.0 mg/dL (8.5-10.5) L 01/08/23 05:22 Phosphorus 3.5 mg/dL (2.5-4.5) 01/07/23 07:55 Magnesium 1.6 mg/dL (1.7-2.3) L 01/08/23 05:22 Total Bilirubin 0.6 mg/dL (0.15-1.2) 01/07/23 07:55 AST 22 U/L (0-40) 01/07/23 07:55 ALT 15 U/L (0-41) 01/07/23 07:55 Alkaline Phosphatase 95 U/L (40-130) 01/07/23 07:55 Creatine Kinase 120 U/L (39-308) 01/06/23 10:51 Troponin T Baseline 47 ng/L (0-15) H 01/04/23 06:39 Troponin T 120 Minute 45.58 ng/L (0-15) H 01/04/23 09:14 Delta Troponin T -1.42 ABS# (0-10) L 01/04/23 09:14 Troponin T Hi Sens 6Hr 40.56 ng/L (0-15) H 01/04/23 12:50 Troponin T Hi Sens 6Hr Delta -6.44 ng/L (0-12) L 01/04/23 12:50 C-Reactive Protein 24.5 mg/L (0.0-4.9) H 01/07/23 07:55 NT-Pro-B Natriuret Pep 1422 pg/mL (0-125) H 01/07/23 07:55 Total Protein 7.5 g/dL (6.6-8.7) 01/07/23 07:55 Albumin 3.4 g/dL (3.5-5.2) L 01/07/23 07:55 Globulin 4.1 g/dL (1.3-4.6) 01/07/23 07:55 Triglycerides 169 mg/dL (0-150) H 01/03/23 20:04 Cholesterol 216 mg/dL (0-200) H 01/03/23 20:04 LDL Cholesterol, Calc 142 mg/dL (50-129) H 01/03/23 20:04 HDL Cholesterol 40 mg/dL (60-100) L 01/03/23 20:04 LDL/HDL Ratio 3.55 RATIO (0.00-3.22) H 01/03/23 20:04 Cholesterol/HDL Ratio 5.40 mg/dL (1.0-5.00) H 01/03/23 20:04 Lipase 39 U/L (13-60) 01/04/23 06:39 Vitamin B12 436 pg/mL (232-1245) 01/04/23 06:39 Folate 3.7 ng/mL (4.5-32.2) L 01/04/23 06:39 Procalcitonin 0.07 ng/mL (0-0.5) 01/07/23 07:55 TSH 0.81 uIU/mL (0.27-4.20) 01/03/23 20:04 Urine Color Dark yellow (Yellow) 01/04/23 01:20 Urine Appearance Sl hazy (CLEAR) A 01/04/23 01:20 Urine pH 5 (5-7) 01/04/23 01:20 Ur Specific [place] 1.020 (1.005-1.030) 01/04/23 01:20 Urine Protein 2+ (Negative) H 01/04/23 01:20 Urine Glucose (UA) Norm (Normal) 01/04/23 01:20 Urine Ketones 1+ (Negative) H 01/04/23 01:20 Urine Blood 2+ (Negative) H 01/04/23 01:20 Urine Nitrate Negative (Negative) 01/04/23 01:20 Urine Bilirubin Neg (Negative) 01/04/23 01:20 Urine Urobilinogen 1 mg/dL (Negative) H 01/04/23 01:20 Ur Leukocyte Esterase Negative (Negative) 01/04/23 01:20 Urine RBC 10-15 /hpf (0-2) H 01/04/23 01:20 Urine WBC 0-4 /hpf (0-5) H 01/04/23 01:20 Ur Squamous Epith Cells 15-25 /hpf (0-5) H 01/04/23 01:20 Amorphous Sediment Not Reportable 01/04/23 01:20 Urine Bacteria 1+ /hpf (NONE) H 01/04/23 01:20 Hyaline Casts 0-4 /lpf H 01/04/23 01:20 Vancomycin Trough 14.0 ug/mL (10-15) 01/07/23 12:00 Lymphoma Panel See report 01/04/23 17:01 Immunophenotype Interp See report 01/04/23 17:01 Vitals Last Vital Signs Temp 97.4 F L 01/08/23 03:53 Pulse 71 01/08/23 09:34 Resp 16 01/08/23 09:34 BP 141/87 01/08/23 08:00 Pulse Ox 95 01/08/23 09:34 O2 Del Method Room Air 01/08/23 09:34 O2 Flow Rate 4 01/08/23 08:00 FiO2 4 01/05/23 04:00 Discharge Plan Discharge Patient Disposition: Home Health Service Condition: Stable Prescriptions: New hydrocodone-acetaminophen 7.5-325 mg Tablet 1 tab PO Q6H PRN (Reason: Moderate Pain) 5 Days Qty: 20 0RF thiamine mononitrate (vit B1) [Vitamin B-1 (mononitrate)] 100 mg Tablet 100 mg PO DAILY 30 Days Qty: 30 0RF gabapentin 300 mg Capsule 300 mg PO Q24H 30 Days Qty: 30 0RF amoxicillin-pot clavulanate 875-125 mg tablet 1 tab PO BID 7 Days Qty: 14 0RF folic acid 1 mg Tablet 1 mg PO DAILY 30 Days Qty: 30 0RF multivitamin with folic acid [Thera] 400 mcg Tablet 1 tab PO DAILY 30 Days Qty: 30 0RF atorvastatin 40 mg Tablet 40 mg PO BEDTIME 30 Days Qty: 30 0RF prednisone 20 mg Tablet 40 mg PO DAILY 3 Days Qty: 6 0RF amlodipine 10 mg Tablet 10 mg PO DAILY 30 Days Qty: 30 0RF doxycycline hyclate 100 mg tablet 100 mg PO BID 7 Days Qty: 14 0RF furosemide [Lasix] 40 mg tablet 40 mg PO Q12H 30 Days Qty: 60 0RF potassium chloride [Klor-Con M20] 20 mEq tablet,ER particles/crystals 20 meq PO BID 30 Days Qty: 60 0RF Continued cyclobenzaprine 5 mg tablet 5 mg PO TID PRN (Reason: muscle spasm) Qty: 12 0RF Aspir-81 81 mg Tablet,Delayed Release (Dr/Ec) 81 mg PO QAM Tylenol Ex Str Rapid Release 500 mg Tablet 1,000 mg PO Q6H PRN (Reason: Pain) albuterol sulfate 90 mcg/actuation HFA aerosol inhaler 2 puff INHALATION Q6H PRN (Reason: Shortness Of Breath) Discontinued amlodipine 10 mg Tablet 10 mg PO QAM furosemide 80 mg tablet 80 mg PO QAM naproxen 250 mg tablet 250 mg PO BID PRN (Reason: Pain) oxycodone-acetaminophen 5-325 mg tablet 1 tab PO Q8H MDD 3 tabs PRN (Reason: Pain) Discharge Orders: Discharge Order (Routine); Ordered 01/08/23 Ordered By: Abhinav Benitez Referrals: [facility] ([facility]) [Outside] Elder Delarosa DO [Physician] - 01/12/23 3:40 pm () Natasha Jama FNP [Primary Care Provider] - 4-7 days (Patient reports he sees Essie Causey @ [facility] PLEASE CALL WEDNESDAY TO SCHEDULE HOSPITAL DISCHARGE APPT DUE TO CLINIC BEING CLOSED AT TIME OF DISCHARGE.) Sahil Turcios M.D [Physician] - 02/10/23 2:30 pm ( ) Michelle Causey [Referring] - Discharge Diet: Cardiac Discharge Activity: Resume usual activity Patient Instructions: Opioid Safety Activity Restrictions/Additional Instructions: - If you have any chest pain or shortness of breath please go to emergency room -Take Lasix 40 twice daily with potassium placement -Have your primary care provider recheck your kidney function and your potassium next week -Wound care as prescribed -Follow-up with general surgery as outpatient -Take antibiotics as prescribed Discharge Attestations Time Spent in Discharge Care*: greater than 30 min Status at Discharge: Cognitive status at discharge: cognitively intact , Behavioral status at discharge: cooperative , Quality Metrics Clinical Quality Measures [ No reported AMI, CVA or VTE this stay] Coding Level of Care Code 05163 Total time (in minutes) for Discharge: 60 Diagnoses Pulmonary embolism I26.93 Pulmonary embolism type: single subsegmental (without acute cor pulmonale) Lymphedema I89.0 Hypertension I10 Hypokalemia E87.6 Cellulitis L03.90 Hyponatremia E87.1 Bladder mass N32.89 Hematuria R31.9 Lactic acidosis E87.20 Acute respiratory failure with hypoxia and hypercapnia J96.01; J96.02 COPD exacerbation J44.1 Folic acid deficiency E53.8 Obesity, morbid E66.01 Sepsis A41.9 Obstructive sleep apnea G47.33 NSTEMI (non-ST elevated myocardial infarction) I21.4 Alcohol withdrawal F10.939 CHF exacerbation I50.9
--- NOTE | 2023-01-08 12:23 | PC.NURSE ---
Discharge Note Patient discharged to [home] via [private vehicle] accompanied by [friend]. Discharge instructions reviewed with patient and/or medical customer service representative. Mobile pharmacy medications and/or prescriptions provided. Belongings/home medications returned.
== END 2023-01-08 13:00 | disposition home or self-care (01) | DRG 871 ==
LOC: ER 22:52 → MEDSURG 23:50 → ICU 01-04 07:47 → MEDSURG 01-05 06:18 → ICU 01-05 15:07 → MEDSURG 01-05 20:29
PROVIDERS: Student in an Organized Health Care Education/Training Program; Surgery; Admitting Provider Internal Medicine; Emergency Provider Emergency Medicine; PCP Nurse Practitioner Family; Visit Provider Family Medicine
PROC: 0HDLXZZ Extraction of Left Lower Leg Skin, External Approach (ICD-10-PCS; principal; 2023-01-07 12:30)
DX: A41.9 Sepsis, unspecified organism (principal); I21.A1 Myocardial infarction type 2; I50.41 Acute combined systolic (congestive) and diastolic (congestive) heart failure; J96.22 Acute and chronic respiratory failure with hypercapnia; J96.21 Acute and chronic respiratory failure with hypoxia; L03.116 Cellulitis of left lower limb; F10.139 Alcohol abuse with withdrawal, unspecified; J44.1 Chronic obstructive pulmonary disease with (acute) exacerbation; Z68.41 Body mass index [BMI] 40.0-44.9, adult; E87.20 Acidosis, unspecified; E87.1 Hypo-osmolality and hyponatremia; L03.115 Cellulitis of right lower limb; I11.0 Hypertensive heart disease with heart failure; Z86.711 Personal history of pulmonary embolism; Z85.46 Personal history of malignant neoplasm of prostate; M54.50 Low back pain, unspecified; N32.9 Bladder disorder, unspecified; I89.0 Lymphedema, not elsewhere classified; E66.01 Morbid (severe) obesity due to excess calories; B86 Scabies; E86.0 Dehydration; E87.6 Hypokalemia; Z90.79 Acquired absence of other genital organ(s); R45.1 Restlessness and agitation; Z79.51 Long term (current) use of inhaled steroids; Z79.82 Long term (current) use of aspirin; L85.9 Epidermal thickening, unspecified
CPT/HCPCS: 36415; 36569; 36592; 36600; 51702; 71045; 71275; 73590; 74177; 80048; 80051; 80053; 80061; 80202; 80503; 81001; 82330; 82550; 82607; 82746; 82803; 82805; 83036; 83605; 83690; 83735; 83880; 84100; 84145; 84443; 84484; 85025; 85378; 85610; 85651; 85730; 86140; 87040; 88184; 88185; 92523; 92610; 93005; 93970; 94640; 94660; 94664; 96365; 96372; 96375; 97110; 97116; 97162; 97167; 97530; 97535; 99285; C1751; C8929; J1100; J1170; J1644; J1650; J1940; J2060; J2250; J2270; J2405; J2543; J2704; J2765; J3010; J3370; J3411; J7030; J7050; J7512; Q9956; Q9967

== ENCOUNTER → 2023-01-12 15:40 | Outpatient (BNVA) | payer MEDICARE, SELFPAY | PROVIDERS: PCP Family Medicine; Visit Provider Surgery | DX: L03.90 Cellulitis, unspecified (principal) | CPT/HCPCS: 29580; 99214 ==

== ENCOUNTER → 2023-01-19 10:55 | Outpatient (BNVA) | payer MEDICARE, SELFPAY | PROVIDERS: PCP Family Medicine; Visit Provider Surgery | DX: I89.0 Lymphedema, not elsewhere classified (principal) | CPT/HCPCS: 29580; 96372; 99213 ==

== ENCOUNTER → 2023-01-26 11:26 | Outpatient (BNVA) | payer MEDICARE, SELFPAY | PROVIDERS: PCP Family Medicine; Visit Provider Surgery | DX: I89.0 Lymphedema, not elsewhere classified (principal) | CPT/HCPCS: 29580; 99213 ==

== ENCOUNTER → 2023-02-02 09:31 | Outpatient (BNVA) | payer MEDICARE, SELFPAY | PROVIDERS: PCP Family Medicine; Visit Provider Surgery | DX: I89.0 Lymphedema, not elsewhere classified (principal) | CPT/HCPCS: 29580; 99214 ==

== ENCOUNTER → 2023-02-09 08:58 | Outpatient (BNVA) | payer MEDICARE, SELFPAY | PROVIDERS: PCP Family Medicine; Visit Provider Surgery | DX: I89.0 Lymphedema, not elsewhere classified (principal) | CPT/HCPCS: 29580; 99214 ==

== ENCOUNTER → 2023-02-16 09:50 | Outpatient (BNVA) | payer MEDICARE, SELFPAY | PROVIDERS: PCP Family Medicine; Visit Provider Surgery | DX: I89.0 Lymphedema, not elsewhere classified (principal) | CPT/HCPCS: 29580; 99214 ==

== ENCOUNTER → 2023-02-23 09:59 | Outpatient (BNVA) | payer MEDICARE, SELFPAY | PROVIDERS: PCP Family Medicine; Visit Provider Surgery | DX: I89.0 Lymphedema, not elsewhere classified (principal) | CPT/HCPCS: 29580; 99214 ==

== ENCOUNTER 2023-02-24 17:21 | Emergency (ER) | payer MEDICARE, SELFPAY ==
[2023-02-24 17:31] VITALS: BP 110/86; PULSE 83; RESP 16; TEMP 36.8; O2SAT 96
--- NOTE | 2023-02-24 17:42 | XRR_ITS ---
PROCEDURE INFORMATION: Exam: XR Chest Exam date and time: 02/24/2023 5:51 PM Age: 67 years old Clinical indication: Pain; Chest pressure; Additional info: Chest pain TECHNIQUE: Imaging protocol: Radiologic exam of the chest. Views: 1 view. COMPARISON: CR XR chest 1V portable [id number] 01/04/2023 2:21 PM FINDINGS: Lungs: Bibasilar atelectasis versus minimal infiltrate. Pleural spaces: Unremarkable. No pleural effusion. No pneumothorax. Heart/Mediastinum: Cardiomegaly. Bones/joints: Unremarkable. XR/XR chest 1V portable [id number] IMPRESSION: 1. Cardiomegaly. 2. Bibasilar atelectasis versus minimal infiltrate.
--- NOTE | 2023-02-24 17:42 | ECG_ITS ---
[facility] Test Date: 2023-02-24 Pat Name: Satish Jones Department: Room: Gender: Male Lead Cook: : 1955 Requested By: Juancarlos Giles Order Number: [id number] Myles MD: Sahil Turcios M.D. Measurements Intervals [place] Rate: 74 P: 85 TN: 184 QRS: 264 QRSD: 144 T: 72 QT: 429 QTc: 478 Interpretive Statements SINUS RHYTHM WITH ECTOPIC PREMATURE COMPLEXES RIGHT AXIS DEVIATION [QRS AXIS > 100] RIGHT BUNDLE BRANCH BLOCK [120+ ms QRS DURATION, UPRIGHT V1, 40+ ms S IN I/aVL/V4/V5/V6] POSSIBLE ANTERIOR MYOCARDIAL INFARCTION , OF INDETERMINATE AGE [30 ms Q WAVE IN V3/V4, OR R < 0.2 mV IN V4] Compared to ECG 01/04/2023 10:42:36 Right-axis deviation now present Right bundle-branch block now present Incomplete right bundle-branch block no longer present Left anterior fascicular block no longer present Myocardial infarct finding still present Electronically Signed On 02-25-2023 6:49:18 CDT by Sahil Turcios M.D. [email or web address]
--- NOTE | 2023-02-24 18:08 | PC.NURSE ---
PT RECIEVED 4 81MG ASPIRIN IN AMBULANCE MD SRAVANTHI INFORMED AND CANCELLED ORDER
[2023-02-24 18:09] VITALS: BP 131/77; PULSE 78; O2SAT 95
--- NOTE | 2023-02-24 18:12 | W.ED.CHESTPA ---
HPI - Chest Pain General: Chief Complaint: Chest Pain Stated Complaint: Chest Pain Time Seen by Provider: 02/24/23 17:28 Source: patient Mode of arrival: ambulatory Limitations: no limitations History of Present Illness: 67-year-old male who states that he has some epigastric pain and fullness today at noon he states it lasted roughly an hour and went to clinic and saw them for this they were concerned that he was having chest pain as well and sent him here. He denies any chest pain currently states his symptoms all resolved for 5 hours ago he states it felt like reflux he denies any shortness of breath denies any nausea denies any diaphoresis. Associated symptoms: Reports abdominal pain; Deny dyspnea, fever(s), nausea or vomiting Review of Systems Const: Denies: fever(s), chills, body aches or change in appetite ENMT: Denies: throat pain or dental pain Card: Reports: chest pain Resp: Denies: dyspnea GI: Reports: abdominal pain; Denies: nausea, vomiting or diarrhea Musc: Denies: neck pain or back pain Skin/Breast: Denies: rash Neuro: Denies: headache(s) PFSH ED PFSH: Medical History Prostate cancer Pulmonary embolism -noted small PE in LLL on CTA PE; no evidence of cor pulmonale -on bridging anticoagulation with Lovenox and Coumadin; INR suptherapeutic. Patient has been refusing the injections. Has had issues with compliance so will switch to Eliquis -daily INR -risk of fall with hx of EtOH abuse; may not be a good candidate for longer term anticoagulation Surgical History H/O prostatectomy History of umbilical hernia repair Hx of colonoscopy May 2022, polyps found Status post colonoscopy Social History Smoking and tobacco status: current some day smoker Alcohol intake: former Marital status: Single Current occupational status: retired Physical Exam Const: COMMON NORMALS: no acute distress, patient oriented x3 and healthy appearing HENMT: COMMON NORMALS: normocephalic and atraumatic HEAD & SCALP: normocephalic and atraumatic Eye: COMMON NORMALS: conjunctivae normal CONJUNCTIVA: Yes conjunctivae normal Neck/C-Spine: COMMON NORMALS: full ROM and supple Chest: COMMONS NORMALS: normal inspection of the chest Resp: COMMON NORMALS: normal respiratory effort, No retractions, No use of accessory muscles and clear to auscultation bilaterally AUSCULTATION: clear to auscultation bilaterally Cardio: COMMON NORMALS: regular rate, regular rhythm and No murmurs present (Cardio) RATE: regular rate RHYTHM: regular rhythm GI: COMMON NORMALS: Normal to inspection, nondistended, normoactive bowel sounds present, Soft to palpation, non-tender and no masses PALPATION: Yes Soft to palpation Extremity: COMMON NORMALS: normal to inspection and full ROM Neuro: COMMON NORMALS: patient oriented x3, moves all extremities and no focal motor deficits Psych: COMMON NORMALS: mental status grossly normal, Normal thought process present and cooperative THOUGHT PROCESS: Normal thought process present Skin: COMMON NORMALS: no rashes or lesions noted and no wounds GENERAL SKIN EXAM: no rashes or lesions noted Course Vital Signs: Vital signs: Vital Signs Temperature 98.3 F 02/24/23 17:31 Pulse Rate 78 02/24/23 18:09 Respiratory Rate 16 02/24/23 17:31 Blood Pressure 131/77 02/24/23 18:09 Pulse Oximetry 95 02/24/23 18:09 MDM - Chest Pain Medical Decision Making Patient presents for chest pains atypical in nature troponins here are negative he had no pain while here no signs of dissection or pulmonary embolism. Patient is stable for discharge he is to follow-up with PCP and return if worsening he understands agrees to plan. Medical Records I reviewed the patient's medical records. Lab Data I reviewed the patient's lab results. 02/24/23 17:38 02/24/23 17:38 Radiology Impressions Chest X-Ray 02/24/23 17:42 IMPRESSION: 1. Cardiomegaly. 2. Bibasilar atelectasis versus minimal infiltrate. Laboratory Results WBC 9.76 10^3/uL (3.29-11.43) 02/24/23 17:38 RBC 5.24 10^6/uL (3.85-5.65) 02/24/23 17:38 Hgb 16.30 g/dL (11.27-16.99) 02/24/23 17:38 Hct 49.7 % (37-53) 02/24/23 17:38 MCV 94.8 fl (82-101) 02/24/23 17:38 MCH 31.1 pg (27-33) 02/24/23 17:38 MCHC 32.8 g/dL (30-55) 02/24/23 17:38 RDW 13.8 % (12.1-15.1) 02/24/23 17:38 Plt Count 306 10^3/cmm (157-399) 02/24/23 17:38 MPV 9.0 fL (7.4-10.4) 02/24/23 17:38 Neut % (Auto) 63.0 % 02/24/23 17:38 Lymph % (Auto) 23.6 % 02/24/23 17:38 Morton % (Auto) 9.0 % 02/24/23 17:38 Eos % (Auto) 3.2 % 02/24/23 17:38 Baso % (Auto) 0.9 % 02/24/23 17:38 Neut # (Auto) 6.15 10^3/uL (1.8-7.7) 02/24/23 17:38 Lymph # (Auto) 2.3 10^3/uL (0.8-4.8) 02/24/23 17:38 [place] # (Auto) 0.9 10^3/uL (0.2-0.9) 02/24/23 17:38 Eos # (Auto) 0.3 10^3/uL (0.0-0.8) 02/24/23 17:38 Baso # (Auto) 0.1 10^3/uL (0.0-0.1) 02/24/23 17:38 Nucleated RBC % (auto) 0 % 02/24/23 17:38 Nucleated RBCs # 0.0 /100WBC 02/24/23 17:38 Sodium 142 mmol/L (136-145) 02/24/23 17:38 Potassium 3.5 mmol/L (3.5-5.1) 02/24/23 17:38 Chloride 102 mmol/L (98-107) 02/24/23 17:38 Carbon Dioxide 28 mmol/L (22-29) 02/24/23 17:38 Anion Gap 15.5 (5-19) 02/24/23 17:38 BUN 15 mg/dL (8-23) 02/24/23 17:38 Creatinine 0.7 mg/dL (0.7-1.2) 02/24/23 17:38 GFR Calculation 113.2 mL/min (90-130) 02/24/23 17:38 Glucose 72 mg/dL (65-115) 02/24/23 17:38 Calculated Osmolality 293 mOsm/kg (285-295) 02/24/23 17:38 Calcium 9.2 mg/dL (8.5-10.5) 02/24/23 17:38 Total Bilirubin 0.7 mg/dL (0.15-1.2) 02/24/23 17:38 AST 22 U/L (0-40) 02/24/23 17:38 ALT 22 U/L (0-41) 02/24/23 17:38 Alkaline Phosphatase 72 U/L (40-130) 02/24/23 17:38 Troponin T Baseline 40 ng/L (0-15) H 02/24/23 17:38 Troponin T 120 Minute 39.34 ng/L (0-15) H 02/24/23 19:32 Delta Troponin T -0.66 ABS# (0-10) L 02/24/23 19:32 Total Protein 7.7 g/dL (6.6-8.7) 02/24/23 17:38 Albumin 4.3 g/dL (3.5-5.2) 02/24/23 17:38 Globulin 3.4 g/dL (1.3-4.6) 02/24/23 17:38 Lipase 25 U/L (13-60) 02/24/23 17:38 Discharge Plan Discharge Patient Disposition: Home Clinical Impression: Chest pain Condition: Stable Prescriptions: No Action cyclobenzaprine 5 mg tablet 5 mg PO TID PRN (Reason: muscle spasm) Qty: 12 0RF aspirin 81 mg Tablet,Delayed Release (Dr/Ec) 81 mg PO QAM acetaminophen 500 mg Tablet 1,000 mg PO Q6H PRN (Reason: Pain) albuterol sulfate 90 mcg/actuation HFA aerosol inhaler 2 puff INHALATION Q6H PRN (Reason: Shortness Of Breath) Discharge Orders: Discharge ED (Routine); Ordered 02/24/23 Ordered By: Bridgett Chinchilla Referrals: Ed Branch [Primary Care Provider] - 1-3 days Discharge Diet: Advance as tolerated Discharge Activity: Resume usual activity Patient Instructions: Chest Pain (ED) Coding Level of Care Code ED 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
[2023-02-24 18:23] LABS: Basophils # 0.1 10^3/uL (0.0-0.1); Basophils % 0.9 %; Eosinophils # 0.3 10^3/uL (0.0-0.8); Eosinophils % 3.2 %; Hematocrit 49.7 % (37-53); Lymphocytes # 2.3 10^3/uL (0.8-4.8); Lymphocytes % 23.6 %; Mean Corpuscular HGB Conc 32.8 g/dL (30-55); Mean Corpuscular Hemoglobin 31.1 pg (27-33); Mean Corpuscular Volume 94.8 fl (82-101); Monocytes # 0.9 10^3/uL (0.2-0.9); Neutrophils # 6.15 10^3/uL (1.8-7.7); Nucleated Red Blood Cells % 0 %; Platelet Count 306 10^3/cmm (157-399); Red Blood Count 5.24 10^6/uL (3.85-5.65); Red Cell Distribution Width 13.8 % (12.1-15.1); White Blood Count 9.76 10^3/uL (3.29-11.43)
[2023-02-24 18:38] LABS: Troponin(5th) Baseline 40 ng/L (0-15)
[2023-02-24 18:39] LABS: Alanine Aminotransferase 22 U/L (0-41); Albumin Level 4.3 g/dL (3.5-5.2); Alkaline Phosphatase 72 U/L (40-130); Anion Gap 15.5 (5-19); Aspartate Amino Transferase 22 U/L (0-40); Blood Urea Nitrogen 15 mg/dL (8-23); Calcium 9.2 mg/dL (8.5-10.5); Carbon Dioxide 28 mmol/L (22-29); Chloride 102 mmol/L (98-107); Globulin 3.4 g/dL (1.3-4.6); Glomerular Filtration Rate 113.2 mL/min (90-130); Glucose 72 mg/dL (65-115); Lipase 25 U/L (13-60); Osmolality Calculated 293 mOsm/kg (285-295); Potassium 3.5 mmol/L (3.5-5.1); Sodium 142 mmol/L (136-145); Total Bilirubin 0.7 mg/dL (0.15-1.2); Total Protein 7.7 g/dL (6.6-8.7)
--- NOTE | 2023-02-24 19:42 | ECG_ITS ---
[facility] Test Date: 2023-02-24 Pat Name: Satish Jones Department: Room: Gender: Male Ammonia Operator: : 1955 Requested By: Juancarlos Giles Order Number: [id number] Myles MD: Sahil Turcios M.D. Measurements Intervals [place] Rate: 89 P: 0 OR: 0 QRS: 269 QRSD: 141 T: 19 QT: 411 QTc: 500 Interpretive Statements ATRIAL FIBRILLATION WITH ABERRANT CONDUCTION OR VENTRICULAR PREMATURE COMPLEXES RIGHT AXIS DEVIATION [QRS AXIS > 100] RIGHT BUNDLE BRANCH BLOCK [120+ ms QRS DURATION, UPRIGHT V1, 40+ ms S IN I/aVL/V4/V5/V6] POSSIBLE ANTERIOR MYOCARDIAL INFARCTION , OF INDETERMINATE AGE [30 ms Q WAVE IN V3/V4, OR R < 0.2 mV IN V4] Compared to ECG 02/24/2023 17:57:35 Ventricular premature complex(es) now present Aberrant conduction of supraventricular beat(s) now present Myocardial infarct finding still present Electronically Signed On 02-25-2023 6:50:05 CDT by Sahil Turcios M.D. [id number]
[2023-02-24 19:57] LABS: Troponin 5 2HR 39.34 ng/L (0-15); Troponin 5 2HR Delta -0.66 ABS# (0-10)
[2023-02-24 20:13] VITALS: BP 131/77; PULSE 78; RESP 16; TEMP 36.8; O2SAT 95
== END 2023-02-24 20:14 | disposition home or self-care (01) ==
PROVIDERS: Family Medicine; Emergency Provider Emergency Medicine; PCP Family Medicine
DX: R07.9 Chest pain, unspecified (principal); Z79.82 Long term (current) use of aspirin; F17.210 Nicotine dependence, cigarettes, uncomplicated; Z85.46 Personal history of malignant neoplasm of prostate; Z86.711 Personal history of pulmonary embolism
CPT/HCPCS: 36415; 71045; 80053; 83690; 84484; 85025; 93005; 99285

== ENCOUNTER → 2023-03-02 09:49 | Outpatient (BNVA) | payer MEDICARE, SELFPAY | PROVIDERS: PCP Family Medicine; Visit Provider Surgery | DX: I89.0 Lymphedema, not elsewhere classified (principal) | CPT/HCPCS: 29580; 99214 ==

== ENCOUNTER 2023-04-15 14:04 | Inpatient (IN) | payer MEDICARE, SELFPAY ==
[2023-04-15] VITALS (19 sets, daily range): BP systolic 118–165; BP diastolic 71–92; PULSE 81–112; RESP 16–31; TEMP 37; O2SAT 91–99; BMI 35.2
--- NOTE | 2023-04-15 14:27 | CTR_ITS ---
PROCEDURE INFORMATION: Exam: CT Head Without Contrast Exam date and time: 04/15/2023 5:18 PM Age: 67 years old Clinical indication: Injury or trauma; Blunt trauma (contusions or hematomas); Patient HX: Per family, patient has had multiple falls out of wheelchair over last few days. PT non verbal upon exam. ; Additional info: Ams/weakness/falls TECHNIQUE: Imaging protocol: Computed tomography of the head without contrast. Radiation optimization: All CT scans at this facility use at least one of these dose optimization techniques: automated exposure control; mA and/or kV adjustment per patient size (includes targeted exams where dose is matched to clinical indication); or iterative reconstruction. REPORTING DATA: Count of CT and Cardiac NM exams in prior 12 months: This patient has received 4 known CTs and 0 known cardiac nuclear medicine studies in the 12 months prior to the current study. COMPARISON: CT head wo con* [id number] 07/06/2019 10:37 AM RADIATION DOSE METRICS: Total DLP (mGy-cm): 1319.65 FINDINGS: Brain: No acute infarct. No hemorrhage. Unremarkable white matter for age. No mass effect. Cerebral ventricles: No ventriculomegaly. Paranasal sinuses: No significant inflammation. No fluid levels. Mastoid air cells: Visualized mastoid air cells are well aerated. Orbital cavities: Unchanged mild bilateral proptosis. Bones/joints: Unremarkable. No acute fracture. Soft tissues: Unremarkable. CT/CT head wo con* [id number] IMPRESSION: No acute intracranial abnormality.
--- NOTE | 2023-04-15 14:27 | XR_ITS ---
WS: [id number] Portable AP upright chest, 04/15/2023 Clinical Data: dyspnea/cough Comparison: Portable chest, 02/24/2023 Findings: No nodules, masses or effusions are seen. The heart is enlarged. The pulmonary vascularity is not increased. No pneumonia or pneumothorax is seen. The patient has a poor inspiratory effort and there is minimal left lower lobe atelectasis. The aortic arch and descending thoracic aorta are tort uous. Impression: 1. Poor inspiratory effort. 2. Cardiomegaly and atherosclerosis.
--- NOTE | 2023-04-15 14:33 | W.ED.SOB ---
HPI - SOB/Dyspnea General: Chief Complaint: Shortness of Breath/Dyspnea Stated Complaint: general weakness Time Seen by Provider: 04/15/23 14:26 Source: patient Mode of arrival: ambulatory History of Present Illness: HPI Narrative: 67-year-old male who presents emergency room coughing and generalized weakness severe shortness of breath. Patient has been tripoding essentially in a wheelchair he has severe orthopnea and has been sleeping in the wheelchair wheelchair he is fallen out of the wheelchair hit his head no reported loss consciousness. He is having significant work of breathing at this time using his shoulders and upper back basically bobbing his head and shoulders to try to increase effort for inspiration. Is complaining of back neck and hip pain as well. EMS reported that he had sats in the mid upper 80s when they first arrived he normally does not wear oxygen not requiring 3 L/min to maintain that the low 90s. He has chronic venous stasis edema with some ulcers on the right leg which his caregiver has been wrapping for him. He denies any chest pain at this time. He has a history of PE was noncompliant with Eliquis and only was on the Eliquis for a month and then was shifted to aspirin daily. MD elicited complaint: shortness of breath Pertinent past history: PE Timing: constant Severity: severe Associated symptoms: Reports chest congestion and chest pain; Deny abdominal pain, cough, diaphoresis, dizziness, extremity pain, fever(s), hemoptysis, lightheadedness, myalgias, nausea, orthopnea, palpitations, paresthesias, polydipsia, polyuria, rash, sense of impending doom, syncope or vomiting Treatment prior to arrival: oxygen Review of Systems Const: Denies: fever(s), chills or diaphoresis Card: Reports: chest pain; Denies: palpitations, lightheadedness, syncope or orthopnea Resp: Reports: chest congestion; Denies: dyspnea or hemoptysis GI: Denies: abdominal pain, nausea or vomiting : Denies: dysuria, urinary frequency or urinary urgency Musc: Denies: neck pain, back pain or extremity pain Skin/Breast: Denies: rash Neuro: Denies: dizziness Endo: Denies: polyuria or polydipsia PFS ED PFSH: Medical History Prostate cancer Pulmonary embolism -noted small PE in LLL on CTA PE; no evidence of cor pulmonale -on bridging anticoagulation with Lovenox and Coumadin; INR suptherapeutic. Patient has been refusing the injections. Has had issues with compliance so will switch to Eliquis -daily INR -risk of fall with hx of EtOH abuse; may not be a good candidate for longer term anticoagulation Surgical History H/O prostatectomy History of umbilical hernia repair Hx of colonoscopy May 2022, polyps found Status post colonoscopy Social History Smoking and tobacco/nicotine status: current some day tobacco/nicotine user Alcohol intake: former Marital status: Single Current occupational status: retired Physical Exam Const: GENERAL APPEARANCE: disheveled and lethargic NUTRITIONAL APPEARANCE: obese ORIENTATION/CONSCIOUSNESS: Yes awake, Yes confused and Yes lethargic HENMT: COMMON NORMALS: normocephalic, atraumatic and hearing grossly normal bilaterally HEAD & SCALP: normocephalic and atraumatic Resp: EFFORT & INSPECTION: Yes tachypneic, Yes respiratory distress, Yes labored and Yes uses accessory muscles AUSCULTATION: rhonchi, wheezes and diminished lung sounds Cardio: COMMON NORMALS: regular rate, regular rhythm and No murmurs present (Cardio) RATE: regular rate RHYTHM: regular rhythm GI: COMMON NORMALS: Soft to palpation and No hepatosplenomegaly present AUSCULTATION: Yes normoactive bowel sounds PALPATION: Yes Soft to palpation, No Tenderness to palpation present (GI), No Guarding due to palpation present (GI) and Yes No hepatosplenomegaly present Extremity: COMMON NORMALS: no calf tenderness GENERAL: Yes edema OTHER: Bilaterally legs have compression . 2-3+ edema lower extremities Neuro: SENSORIUM/ORIENTATION: Yes lethargic Skin: COMMON NORMALS: no rashes or lesions noted GENERAL SKIN EXAM: no rashes or lesions noted Course Vital Signs: Vital signs: Vital Signs Temperature 98.6 F 04/15/23 14:06 Pulse Rate 89 04/16/23 04:55 Respiratory Rate 21 H 04/16/23 04:00 Blood Pressure 146/100 04/16/23 04:00 Pulse Oximetry 98 04/16/23 04:55 Oxygen Delivery Me thod BiPAP 04/15/23 17:06 Oxygen Flow Rate 3 04/15/23 15:23 Fraction of Inspir ed Oxygen 30 04/16/23 04:55 MDM - SOB/Dyspnea Medical Decision Making Initial evaluation patient in respiratory distress blood gases show hypercapnic respiratory failure he has improved with BiPAP. He has a history of PEs he has not been taking his Eliquis discussed, it sounds like he took it for a month with a coupon that he got and then just switch to aspirin. CTA of the chest shows pulmonary embolism. CT head and C-spine unremarkable. Will admit to ICU discussed with hospitalist orders written. (CTA of the chest read was after orders had been written was called to Dr. Chinchilla after I completed my shift and forwarded to Hospitalist. Medical Records I reviewed the patient's medical records. Lab Data I reviewed the patient's lab results. 04/16/23 04:00 04/16/23 04:00 Labs/Radiology: Radiology Impressions Head CT 04/15/23 14:27 IMPRESSION: No acute intracranial abnormality. Chest CTA 04/15/23 15:22 IMPRESSION: 1. Mild pulmonary emboli within lower right lung as noted above. 2. Right pvlnd-gzmngef-xhfe-left basilar atelectasis with suggestion of mild right basilar infiltrate at the diaphragm. 3. No significant change otherwise with previous exam. ADDENDUM: 04/15/23 [id number] THIS REPORT CONTAINS FINDINGS THAT MAY BE CRITICAL TO PATIENT CARE. The findings were verbally communicated via telephone conference with Dr. Chinchilla at 6:24 PM CDT on 04/15/2023. The findings were acknowledged and understood. Cervical Spine CT 04/15/23 16:13 IMPRESSION: 1. No acute osseous injury. 2. There is a 2.1 cm right thyroid nodule present. Recommend ultrasound follow-up if not performed previously. COMMENTS: Consistent with the [employer]'s Incidental Findings Committee white paper (J Am Clari Radiol 2015): In patients aged 35 years and older with an incidental thyroid nodule equal to or greater than 1.[address], MRI or extrathyroidal US, further evaluation with dedicated thyroid US is recommended for patients with normal life expectancy and without comorbidities. For smaller nodules without suspicious features, no further evaluation or follow up is recommended. Laboratory Results WBC 9.94 10^3/uL (3.29-11.43) 04/15/23 14:44 RBC 5.48 10^6/uL (3.85-5.65) 04/15/23 14:44 Hgb 17.10 g/dL (11.27-16.99) H 04/15/23 14:44 Hct 51.9 % (37-53) 04/15/23 14:44 MCV 94.7 fl (82-101) 04/15/23 14:44 MCH 31.2 pg (27-33) 04/15/23 14:44 MCHC 32.9 g/dL (30-55) 04/15/23 14:44 RDW 12.1 % (12.1-15.1) 04/15/23 14:44 Plt Count 275 10^3/cmm (157-399) 04/15/23 14:44 MPV 8.7 fL (7.4-10.4) 04/15/23 14:44 Neut % (Auto) 72.0 % 04/15/23 14:44 Lymph % (Auto) 13.8 % 04/15/23 14:44 [place] % (Auto) 12.4 % 04/15/23 14:44 Eos % (Auto) 0.8 % 04/15/23 14:44 Baso % (Auto) 0.5 % 04/15/23 14:44 Neut # (Auto) 7.16 10^3/uL (1.8-7.7) 04/15/23 14:44 Lymph # (Auto) 1.4 10^3/uL (0.8-4.8) 04/15/23 14:44 [place] # (Auto) 1.2 10^3/uL (0.2-0.9) H 04/15/23 14:44 Eos # (Auto) 0.1 10^3/uL (0.0-0.8) 04/15/23 14:44 Baso # (Auto) 0.1 10^3/uL (0.0-0.1) 04/15/23 14:44 Nucleated RBC % (auto) 0 % 04/15/23 14:44 Nucleated RBCs # 0.0 /100WBC 04/15/23 14:44 Specimen Type Arterial 04/15/23 15:16 Sample Site Radial, left 04/15/23 15:16 ABG pH 7.30 (7.35-7.45) L 04/15/23 15:16 ABG pO2 67.8 mmHg (80.0-100.0) L 04/15/23 15:16 ABG HCO3 34.6 mmol/L (22-26) H 04/15/23 15:16 ABG O2 Saturation 92.6 04/15/23 15:16 ABG Base Excess 4.9 mmol/L (-2.0-2.0) H 04/15/23 15:16 Toro Test Pos 04/15/23 15:16 Hematocrit 53.7 % (42-52) H 04/15/23 15:16 Hgb O2 Saturation 88.5 % (95-100) L 04/15/23 15:16 Carboxyhemoglobin 4.1 %THgb (0.4-20.1) 04/15/23 15:16 Methemoglobin 0.3 % (0.4-1.5) L 04/15/23 15:16 Total Hemoglobin 17.5 g/dL (14-18) 04/15/23 15:16 Sodium 146.0 mmol/L (131-143) H 04/15/23 15:16 Potassium 3.0 mmol/L (3.5-5.0) L 04/15/23 15:16 Glucose 108.0 mg/dL (70-115) 04/15/23 15:16 Ionized Calcium 1.2 mmol/L (1.1-1.4) 04/15/23 15:16 O2 Delivery Device Nc 04/15/23 15:16 FiO2 3.0 % 04/15/23 15:16 Paleology Teacher ID Demetrius 04/15/23 15:16 Sodium 143 mmol/L (136-145) 04/15/23 14:44 Potassium 3.0 mmol/L (3.5-5.1) L 04/15/23 14:44 Chloride 97 mmol/L (98-107) L 04/15/23 14:44 Carbon Dioxide 30 mmol/L (22-29) H 04/15/23 14:44 Anion Gap 19.0 (5-19) 04/15/23 14:44 BUN 24 mg/dL (8-23) H 04/15/23 14:44 Creatinine 0.6 mg/dL (0.7-1.2) L 04/15/23 14:44 GFR Calculation 135.2 mL/min (90-130) H 04/15/23 14:44 Glucose 107 mg/dL (65-115) 04/15/23 14:44 Calculated Osmolality 301 mOsm/kg (285-295) H 04/15/23 14:44 Lactic Acid 1.3 mmol/L (0.5-2.2) 04/15/23 14:44 Calcium 9.4 mg/dL (8.5-10.5) 04/15/23 14:44 Total Bilirubin 1.7 mg/dL (0.15-1.2) H 04/15/23 14:44 AST 139 U/L (0-40) H 04/15/23 14:44 ALT 47 U/L (0-41) H 04/15/23 14:44 Alkaline Phosphatase 78 U/L (40-130) 04/15/23 14:44 Troponin T Baseline 55 ng/L (0-15) H 04/15/23 14:44 NT-Pro-B Natriuret Pep 197 pg/mL (0-125) H 04/15/23 14:44 Total Protein 7.5 g/dL (6.6-8.7) 04/15/23 14:44 Albumin 3.8 g/dL (3.5-5.2) 04/15/23 14:44 Globulin 3.7 g/dL (1.3-4.6) 04/15/23 14:44 All radiology interpretation(s) finalized by discharge Discharge Plan Discharge Patient Disposition: Admitted As Inpatient Admit Provider: Pamela Ray Clinical Impression: Acute on chronic respiratory failure with hypoxia and hypercapnia, Obstructive sleep apnea, Hypertension, Obesity, morbid Condition: Stable Coding Level of Care Code ED Instrument Maker And Repairer for Sharmin Stewart
--- NOTE | 2023-04-15 14:46 | ECG_ITS ---
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 Measurements Intervals [place] Rate: 99 P: 46 IN: 168 QRS: 211 QRSD: 146 T: 13 QT: 366 QTc: 470 Interpretive Statements SINUS RHYTHM WITH FREQUENT SUPRAVENTRICULAR PREMATURE COMPLEXES RIGHT AXIS DEVIATION [QRS AXIS > 100] RIGHT BUNDLE BRANCH BLOCK [120+ ms QRS DURATION, UPRIGHT V1, 40+ ms S IN I/aVL/V4/V5/V6] POSSIBLE ANTERIOR MYOCARDIAL INFARCTION , PROBABLY OLD [30 ms Q WAVE IN V3/V4, OR R < 0.2 mV IN V4] Compared to ECG 02/24/2023 19:42:00 Atrial fibrillation no longer present Ventricular premature complex(es) no longer present Aberrant conduction of supraventricular beat(s) no longer present Myocardial infarct finding still present Electronically Signed On 04-16-2023 1:07:17 CDT by Yeimy Mike M.D. [id number]
[2023-04-15 14:55] LABS: Basophils # 0.1 10^3/uL (0.0-0.1); Basophils % 0.5 %; Eosinophils # 0.1 10^3/uL (0.0-0.8); Eosinophils % 0.8 %; Hematocrit 51.9 % (37-53); Lymphocytes # 1.4 10^3/uL (0.8-4.8); Lymphocytes % 13.8 %; Mean Corpuscular HGB Conc 32.9 g/dL (30-55); Mean Corpuscular Hemoglobin 31.2 pg (27-33); Mean Corpuscular Volume 94.7 fl (82-101); Mean Platelet Volume 8.7 fL (7.4-10.4); Monocytes # 1.2 10^3/uL (0.2-0.9); Monocytes % 12.4 %; Neutrophils # 7.16 10^3/uL (1.8-7.7); Nucleated Red Blood Cells % 0 %; Platelet Count 275 10^3/cmm (157-399); Red Blood Count 5.48 10^6/uL (3.85-5.65); Red Cell Distribution Width 12.1 % (12.1-15.1); White Blood Count 9.94 10^3/uL (3.29-11.43)
[2023-04-15] MEDS: ipratropium-albuterol 3 mL Neb INHALATION ×2 (15:14→20:06)
[2023-04-15 15:16] LABS: Lactic Sepsis W/Reflex 1.3 mmol/L (0.5-2.2)
[2023-04-15 15:17] LABS: Troponin(5th) Baseline 55 ng/L (0-15)
[2023-04-15] MEDS: dexamethasone 10 mg/mL INJ IM (15:22)
--- NOTE | 2023-04-15 15:22 | CTR_ITS ---
PROCEDURE INFORMATION: Exam: CTA Chest With Contrast Exam date and time: 04/15/2023 5:23 PM Age: 67 years old Clinical indication: Cough and shortness of breath; Patient HX: Cough with severe SOB. History of pe. ; Additional info: Dyspnea/hx pe TECHNIQUE: Imaging protocol: Computed tomographic angiography of the chest with contrast. Exam focused on the arteries. 3D rendering (Not supervised by radiologist): MIP and/or 3D reconstructed images were created by the technologist. Radiation optimization: All CT scans at this facility use at least one of these dose optimization techniques: automated exposure control; mA and/or kV adjustment per patient size (includes targeted exams where dose is matched to clinical indication); or iterative reconstruction. Contrast material: OMNI 350; Contrast volume: 100 ml; Contrast route: INTRAVENOUS (IV); REPORTING DATA: Count of CT and Cardiac NM exams in prior 12 months: This patient has received 4 known CTs and 0 known cardiac nuclear medicine studies in the 12 months prior to the current study. COMPARISON: CT angio chest PE protcl [id number] 01/05/2023 10:14 AM RADIATION DOSE METRICS: Total DLP (mGy-cm): 530.18 FINDINGS: Pulmonary arteries: No hypodense filling defect is seen within the main pulmonary artery trunk or main right and left pulmonary arteries. Axial images demonstrate partial hypodense filling defect involving a couple of segmental and subsegmental branches in the lower right lung (axial images 238 through 249 on series 6) with possible involvement small peripheral branches of the lower lungs otherwise. No central pulmonary emboli. Aorta: See Coronary arteries finding. Lungs: See Pulmonary arteries finding. Pleural spaces: Nonspecific posterior pleural thickening bilaterally. Basilar atelectasis along with suggestion of mild infiltrate right lung base at the diaphragm. Evidence for benign healed granulomatous disease as noted with prior exam. No pleural effusion. No pneumothorax. Heart: Mild cardiac enlargement. Right ventricular to left ventricular ratio is 0.8. No findings to indicate right heart strain. No pericardial effusion. Coronary arteries: Coronary artery calcification is seen. Mild calcification thoracic aorta. Lymph nodes: Unremarkable. No enlarged lymph nodes. Bones/joints: Spondylotic change thoracic. Next no acute findings in the visualized upper abdomen. Soft tissues: Unremarkable. CT/CT angio chest PE protcl [id number] IMPRESSION: 1. Mild pulmonary emboli within lower right lung as noted above. 2. Right hjcdw-wkjrkcs-kdvl-left basilar atelectasis with suggestion of mild right basilar infiltrate at the diaphragm. 3. No significant change otherwise with previous exam.
[2023-04-15 15:27] LABS: Alanine Aminotransferase 47 U/L (0-41); Albumin Level 3.8 g/dL (3.5-5.2); Alkaline Phosphatase 78 U/L (40-130); Aspartate Amino Transferase 139 U/L (0-40); Blood Urea Nitrogen 24 mg/dL (8-23); Calcium 9.4 mg/dL (8.5-10.5); Carbon Dioxide 30 mmol/L (22-29); Chloride 97 mmol/L (98-107); Globulin 3.7 g/dL (1.3-4.6); Glomerular Filtration Rate 135.2 mL/min (90-130); Glucose 107 mg/dL (65-115); NT Pro B Type Natriuretic Pept 197 pg/mL (0-125); Osmolality Calculated 301 mOsm/kg (285-295); Sodium 143 mmol/L (136-145); Total Bilirubin 1.7 mg/dL (0.15-1.2); Total Protein 7.5 g/dL (6.6-8.7)
[2023-04-15 15:28] LABS: Arterial Blood Gas Hematocrit 53.7 % (42-52); Base Excess ABG 4.9 mmol/L (-2.0-2.0); Blood Gas Allen Test Pos; Blood Gas Sample Site Radial, left; Blood Gas Sample Type Arterial; Carboxyhemoglobin 4.1 %THgb (0.4-20.1); HCO3 ABG 34.6 mmol/L (22-26); HGB O2 Sat 88.5 % (95-100); Ionized Calcium Level - ABG 1.2 mmol/L (1.1-1.4); Methemoglobin 0.3 % (0.4-1.5); Oxygen Device NC; Oxygen Saturation ABG 92.6; PO2 ABG 67.8 mmHg (80.0-100.0); Total Hemoglobin 17.5 g/dL (14-18)
[2023-04-15] MEDS: iohexol 350 mg/mL 500 mL Btl (per mL) IV (15:39)
--- NOTE | 2023-04-15 16:13 | CTR_ITS ---
PROCEDURE INFORMATION: Exam: CT Cervical Spine Without Contrast Exam date and time: 04/15/2023 5:20 PM Age: 67 years old Clinical indication: Injury or trauma; Blunt trauma; Patient HX: Per family, patient has had multiple falls out of wheelchair over last few days. PT non verbal upon exam. TECHNIQUE: Imaging protocol: Computed tomography of the cervical spine without contrast. Radiation optimization: All CT scans at this facility use at least one of these dose optimization techniques: automated exposure control; mA and/or kV adjustment per patient size (includes targeted exams where dose is matched to clinical indication); or iterative reconstruction. REPORTING DATA: Count of CT and Cardiac NM exams in prior 12 months: This patient has received 4 known CTs and 0 known cardiac nuclear medicine studies in the 12 months prior to the current study. COMPARISON: CT head wo con* [id number] 04/15/2023 5:18 PM RADIATION DOSE METRICS: Total DLP (mGy-cm): 550.17 FINDINGS: Limitations: The study is motion degraded. Bones/joints: The cervical spine is straightened which may be positional or related to spasm. No acute fracture. Multilevel degenerative changes are present. Lungs: Lung apices are normal. Thyroid: There is a 2.1 cm right thyroid nodule present. Soft tissues: Unremarkable. CT/CT cervical spin wo con* [id number] IMPRESSION: 1. No acute osseous injury. 2. There is a 2.1 cm right thyroid nodule present. Recommend ultrasound follow-up if not performed previously. COMMENTS: Consistent with the [employer]'s Incidental Findings Committee white paper (J Am Clari Radiol 2015): In patients aged 35 years and older with an incidental thyroid nodule equal to or greater than 1.[address], MRI or extrathyroidal US, further evaluation with dedicated thyroid US is recommended for patients with normal life expectancy and without comorbidities. For smaller nodules without suspicious features, no further evaluation or follow up is recommended.
--- NOTE | 2023-04-15 16:42 | ECG_ITS ---
[facility] Test Date: 2023-04-15 Pat Name: Satish Jones Department: Room: ICU11 Gender: Male Physical Medicine Specialist: : 1955 Requested By: Juancarlos Giles Order Number: [id number] Myles MD: Yeimy Mike M.D. Measurements Intervals [place] Rate: 96 P: 72 [place]: 164 QRS: 239 QRSD: 153 T: 41 QT: 377 QTc: 478 Interpretive Statements SINUS RHYTHM WITH FREQUENT SUPRAVENTRICULAR PREMATURE COMPLEXES RIGHT AXIS DEVIATION [QRS AXIS > 100] RIGHT BUNDLE BRANCH BLOCK [120+ ms QRS DURATION, UPRIGHT V1, 40+ ms S IN I/aVL/V4/V5/V6] Compared to ECG 04/15/2023 14:46:07 Myocardial infarct finding no longer present Electronically Signed On 04-16-2023 1:34:53 CDT by Yeimy Mike M.D. [id number]
[2023-04-15] MEDS: FUROsemide 10 mg/mL SDV 10mL 60 MG IVP (17:00)
[2023-04-15] MEDS: levofloxacin-dextrose 5 % 750 MG/150 ML PREMIX 100 MG IV (17:04)
[2023-04-15 17:21] LABS: Troponin 5 2HR 49.49 ng/L (0-15); Troponin 5 2HR Delta -5.51 ABS# (0-10)
--- NOTE | 2023-04-15 17:48 | PC.NURSE ---
Arrived from ED, transferred to bed via lift sheet. AMS, alert, responds verbally not appropriate for questions, not following commands
[2023-04-15 17:53] LABS: Protein Urine Trace (Negative); Urine Appearance Cloudy (CLEAR); Urine Color Amber (Yellow); pH Urine 8 (5-7)
[2023-04-15 17:54] LABS: Add Urine Microscopic? YES; Bilirubin Urine Neg (Negative); Blood Urine 3+ (Negative); Glucose Urine UA Norm (Normal); Ketones Urine 2+ (Negative); Leukocyte Esterase Urine 1+ (Negative); Nitrate Urine Negative (Negative); Sulfosalicylic Acid Urine Positive (Negative); Urobilinogen Urine 1 mg/dL (Negative)
[2023-04-15 18:00] LABS: Bacteria Urine 2+ /hpf; Mucus Urine 1+ /hpf; RBC Urine 0-4 /hpf (0-2); Squamous Epithelial Cell Urine RARE /hpf (0-5); Triple Phosphate Crystal Urine 0-4 /hpf
[2023-04-15 18:01] LABS: Add Urine Culture? Yes
--- NOTE | 2023-04-15 19:03 | P.HP_ITS ---
Providers/Chief Complaint Admitting Physician: Pamela Ray MD Primary Care Provider: Ed Branch Chief Complaint: general weakness History of Present Illness Satish Jones is a 67 year old male With past medical history of PE, prostate cancer, alcohol abuse,who presnted to the hospital with c/o shortness of breath.? Patient has been tripoding , has severe orthopnea and has been sleeping in the wheelchair . He is having significant work of breathing on presentation to the ER. He has a history of PE was noncompliant with Eliquis and only took one month while his coupon lasted. He reports cough, dyspnea and palpitations. He has not been using his inhaler. He needed to be placed on Bipap for increased work of breathing Review of Systems General: Reports: 10 or more systems reviewed and unremarkable except in HPI and below Const: Denies: fever(s), chills or body aches Eyes: Denies: change in vision, blurry vision or photophobia ENMT: Reports: hoarseness; Denies: throat pain, enlarged tonsils, odynophagia or nasal congestion Card: Denies: chest pain, palpitations, irregular heart rhythm, edema, swelling of feet/ankles, lightheadedness, pre-syncope, dyspnea on exertion or orthopnea Resp: Denies: dyspnea, productive cough, non-productive cough, wheezing, stridor, pain on inspiration, change in phlegm color, hemoptysis or chest c ongestion GI: Denies: abdominal pain, nausea, vomiting, hematemesis, coffee ground emesis, dysphagia, heartburn, diarrhea, constipation, GI cramping, change in stool character, hematochezia or melena : Denies: flank pain, dysuria, urinary frequency, urinary urgency, urinary hesitancy or hematuria Musc: Denies: neck pain, back pain, extremity pain, joint swelling, joint warmth or deformity Neuro: Denies: headache(s), numbness in extremities, weakness in extremities, sensory changes, difficulty walking, frequent falls, dizziness, vertigo, behavioral changes, Slurred speech present or seizure-like activity Psych: Denies: anxiety, depression, suicidal ideation or homicidal ideation Endo: Denies: polyuria, polydipsia, tired all the time, cold intolerance or hot flashes Kota/Lymph: Denies: easy bruising or easy bleeding Medications/Allergies Home Medications Medication Instructions Recorded Confirmed Last Taken Type acetaminophen 500 mg tablet 1,000 mg PO Q6H PRN Pain 01/04/23 04/15/23 Unknown History albuterol sulfate 90 mcg/actuation 2 puff inhalation Q6H PRN 01/04/23 04/15/23 Unknown History aerosol inhaler Shortness Of Breath aspirin 81 mg tablet,delayed 81 mg PO QAM 01/04/23 04/15/23 04/14/23 History release amlodipine 10 mg tablet 10 mg PO DAILY 04/15/23 04/15/23 04/15/23 History furosemide 80 mg tablet 80 mg PO DAILY 04/15/23 04/15/23 Unknown History Allergies Allergy/AdvReac Type Severity Reaction Status Date / Time No Known Allergies Allergy Unverified 04/15/23 14:59 PFSH Acute PFSH: Medical History (Updated 04/16/23 @ 14:28 by Pamela Ray MD) Prostate cancer Pulmonary embolism Surgical History H/O prostatectomy History of umbilical hernia repair Hx of colonoscopy May 2022, polyps found Status post colonoscopy Social History Smoking and tobacco/nicotine status: current some day tobacco/nicotine user Alcohol intake: former Marital status: Single Current occupational status: retired Vitals/I&O/Wt Last Vital Signs Temp 98.6 F 04/15/23 14:06 Pulse 110 H 04/15/23 17:41 Resp 18 04/15/23 17:06 BP 157/88 04/15/23 17:06 Pulse Ox 94 04/15/23 17:41 O2 Del Method BiPAP 04/15/23 17:06 O2 Flow Rate 3 04/15/23 15:23 FiO2 40 04/15/23 17:41 Weight last 48 hrs Weight 108.409 kg Physical Exam Narrative: General: No acute distress, AO x3 HEENT: PERRLA, pupils bilaterally equal and reactive, pallors not present Chest: Normal vesicular breath sounds, no added sounds, equal good air entry bilaterally CVS: S1-S2 regular, no murmurs, no tachycardia, no gallops, no rubs Abdomen: Soft, nontender, no organomegaly, bowel sounds present Neuro: No focal deficits, no facial deformity, AO x3, power 5/5 in all limbs Extremities: B/L LE in lymphedema wraps Urinary Catheter Management: Jeffery: Cath Placed During This Visit: yes Reason for Continuing Indwelling Catheter: Accurate Measurement of Urinary Output in Critically Ill Patients Urinary Catheter Date of Insertion: 04/15/23 Urinary Catheter Time of Insertion: 16:45 Data 04/16/23 04:00 04/16/23 04:00 Micro: Microbiology 04/15/23 14:44 Blood Culture - Preliminary Blood SPECIMEN COLLECTED 04/15/23 14:46 Blood Culture - Preliminary Blood SPECIMEN COLLECTED Other data: CT/CT angio chest PE protcl [id number] IMPRESSION: 1. Mild pulmonary emboli within lower right lung as noted above. 2. Right hyska-ejnovld-qrdv-left basilar atelectasis with suggestion of mild right basilar infiltrate at the diaphragm. 3. No significant change otherwise with previous exam.? A&P Assessment and plan (1) Pulmonary embolism: Patient presenting today with worsening dyspnea over the past [address] of the chest shows PE in the right lung. However degree of dyspnea appears to be out of proportion with a small PE. Possible that patient could be experiencing a combination of acute PE and COPD exacerbation versus CHF exacerbation leading to his current symptoms. Start Lovenox 1 mg/kg every 12 hours for treatment. Qualifiers: Pulmonary embolism type: single subsegmental (without acute cor pulmonale) Qualified Code(s): I26.93 - Single subsegmental pulmonary embolism without acute cor pulmonale (2) Acute on chronic respiratory failure with hypoxia and hypercapnia: Likely to be multifactorial related to PE, CHF exacerbation and COPD exacerbation together with obesity hypoventilation. Patient is currently on BiPAP. Continue the same for now. (3) COPD exacerbation: COPD exacerbation Dexamethasone 6 mg IV every 24 hours Check respiratory viral panel Scheduled inhalation of DuoNeb and budesonide BiPAP as needed (4) CHF exacerbation: Lasix 40 mg IV every 12 hours Last echocardiogram from December 2022 showing diffuse hypokinesia of the left ventricle with a diminished ejection fraction of 48%. Diffuse hypokinesia of top of the right ventricle with mild dilatation. Overall impression that of acute on chronic systolic heart failure Monitor AGUSTO's Monitor renal function with diuresis. Currently troponin series with 55--> 49-->46--> no acute ST-T wave changes on EKG. Low suspicion for ACS overall. (5) Obstructive sleep apnea: BiPAP as above patient noncompliant with BiPAP at home. (6) Lymphedema: Follows with general surgery as outpatient. Chronic lymphedema of bilateral lower extremity. Leg elevation and lymphedema wraps to continue. Follow-up as outpatient. (7) Obesity, morbid: Plan DVT prophylaxis: Lovenox Full code Attestations Medical Necessity Statement*: Greater than 2 midnight stay is anticipated for management of acute on chronic hypoxic hypercapnic respiratory failure, CHF exacerbation needing IV diuretics, PE requiring anticoagulation, currently on BiPAP noninvasive ventilation management. Critical Care Time: The high probability of a clinically significant, sudden or life threatening deterioration of the patient's [respiratory, cardiovascular] system(s) required my full and direct attention, intervention and personal management. The critical care time is as shown. This time is in addition to time spent performing any reported procedures but includes the following: [x] Data and vital sign review and interpretation [x] Patient assessment, examination and intervention [x] Documentation [x] Medication orders and management Critical Care Time (min): 60 Coding Level of Care Code Acute Code for Chg Fwd Diagnoses Pulmonary embolism I26.93 Pulmonary embolism type: single subsegmental (without acute cor pulmonale) Acute on chronic respiratory failure with hypoxia and hypercapnia J96.21; J96.22 COPD exacerbation J44.1 CHF exacerbation I50.9 Obstructive sleep apnea G47.33 Lymphedema I89.0 Obesity, morbid E66.01
[2023-04-15 19:16] LABS: Specific Gravity, Urine 1.015 (1.005-1.030)
[2023-04-15] MEDS: cefTRIAXone 1,000 MG in sodium chloride 0.9% (plus) 50 ML 100 MG IV (20:37)
[2023-04-15] MEDS: enoxaparin 100 mg/mL Syringe SUBCUT (20:37)
[2023-04-15 21:14] LABS: Troponin 5 6HR 46.07 ng/L (0-15)
--- NOTE | 2023-04-15 21:19 | ECG_ITS ---
[facility] Test Date: 2023-04-15 Pat Name: Satish Jones Department: Room: ICU11 Gender: Male Swatch Folder: : 1955 Requested By: Juancarlos Giles Order Number: [id number] Myles MD: Yeimy Mike M.D. Measurements Intervals [place] Rate: 82 P: 0 DC: 0 QRS: 238 QRSD: 143 T: 94 QT: 433 QTc: 507 Interpretive Statements Multifocal atrial rhythm RIGHT AXIS DEVIATION [QRS AXIS > 100] RIGHT BUNDLE BRANCH BLOCK [120+ ms QRS DURATION, UPRIGHT V1, 40+ ms S IN I/aVL/V4/V5/V6] INFERIOR MYOCARDIAL INFARCTION , PROBABLY OLD [40+ ms Q WAVE AND/OR ST/T ABNORMALITY IN II/aVF] Compared to ECG 04/15/2023 16:55:36 Myocardial infarct finding now present Sinus rhythm no longer present Electronically Signed On 04-16-2023 1:36:35 CDT by Yeimy Mike M.D. [id number]
[2023-04-15 21:33] LABS: Troponin 5 6HR Delta -8.93 ng/L (0-12)
[2023-04-16] VITALS (36 sets, daily range): BP systolic 130–158; BP diastolic 57–101; PULSE 78–111; RESP 14–28; TEMP 36.7; O2SAT 91–98
[2023-04-16] MEDS: ipratropium-albuterol 3 mL Neb INHALATION ×4 (01:47→19:48)
[2023-04-16 04:24] LABS: Basophils % 0.1 %; Eosinophils % 0.1 %; Hematocrit 51.1 % (37-53); Lymphocytes # 0.9 10^3/uL (0.8-4.8); Lymphocytes % 9.6 %; Mean Corpuscular HGB Conc 32.7 g/dL (30-55); Mean Corpuscular Hemoglobin 30.8 pg (27-33); Mean Corpuscular Volume 94.3 fl (82-101); Mean Platelet Volume 9.1 fL (7.4-10.4); Monocytes # 0.3 10^3/uL (0.2-0.9); Monocytes % 3.6 %; Nucleated Red Blood Cells % 0 %; Platelet Count 245 10^3/cmm (157-399); Red Blood Count 5.42 10^6/uL (3.85-5.65); Red Cell Distribution Width 12.1 % (12.1-15.1); White Blood Count 9.42 10^3/uL (3.29-11.43)
[2023-04-16 04:48] LABS: Alanine Aminotransferase 42 U/L (0-41); Albumin Level 3.8 g/dL (3.5-5.2); Alkaline Phosphatase 78 U/L (40-130); Anion Gap 18.5 (5-19); Aspartate Amino Transferase 88 U/L (0-40); Blood Urea Nitrogen 24 mg/dL (8-23); Calcium 9.5 mg/dL (8.5-10.5); Carbon Dioxide 34 mmol/L (22-29); Chloride 98 mmol/L (98-107); Globulin 3.5 g/dL (1.3-4.6); Glucose 131 mg/dL (65-115); Osmolality Calculated 310 mOsm/kg (285-295); Potassium 3.5 mmol/L (3.5-5.1); Sodium 147 mmol/L (136-145); Total Bilirubin 1.2 mg/dL (0.15-1.2); Total Protein 7.3 g/dL (6.6-8.7)
[2023-04-16] MEDS: FUROsemide 10 mg/mL SDV 4mL 40 MG IVP ×2 (05:34→17:39)
[2023-04-16] MEDS: enoxaparin 100 mg/mL Syringe SUBCUT (06:39)
[2023-04-16] MEDS: amlodipine 10 mg Tablet PO (08:35)
[2023-04-16] MEDS: pantoprazole DR 40 mg Tablet PO (08:35)
[2023-04-16 12:14] LABS: Adenovirus Not Detected (NOT DETECT); Chlamydia Pneumoniae Not Detected (NOT DETECT); Coronavirus 229E,HKU1,NL63,OC4 Not Detected (NOT DETECT); Human Metapneumovirus Not Detected (NOT DETECT); Human Rhinovirus/Enterovirus Not Detected (NOT DETECT); Influenza A Not Detected (NOT DETECT); Influenza A H1 Not Detected (NOT DETECT); Influenza A H1-2009 Not Detected (NOT DETECT); Influenza A H3 Not Detected (NOT DETECT); Influenza B Not Detected (NOT DETECT); Mycoplasma Pneumoniae Not Detected (NOT DETECT); Parainfluenza Virus Type 1 Not Detected (NOT DETECT); Parainfluenza Virus Type 2 Not Detected (NOT DETECT); Parainfluenza Virus Type 3 Not Detected (NOT DETECT); Parainfluenza Virus Type 4 Not Detected (NOT DETECT); Respiratory Syncytial Virus A Not Detected (NOT DETECT); Respiratory Syncytial Virus B Not Detected (NOT DETECT); SARS-COV-2 Not Detected (NOT DETECT)
--- NOTE | 2023-04-16 14:04 | PC.SOCIAL ---
Pg 2 IMM Explained to pt Pg 2 IMM. No questions voiced. Provided pt a copy. Initialed, dated, & timed a copy & placed in chart.
[2023-04-16] MEDS: ondansetron 2 mg/ML SDV 2 mL 4 MG IVP (14:22)
--- NOTE | 2023-04-16 14:39 | PM.PN ---
Subjective Subjective: Respiratory viral panel negative. Patient states that his breathing feels easier today. Net -1.1 L. Kidney function is stable. Afebrile, hemodynamically stable. Needed to use BiPAP overnight. Medications: Reviewed: Yes Vitals/I&O/Wt Last Vital Signs Temp 98.6 F 04/15/23 14:06 Pulse 90 04/16/23 13:12 Resp 18 04/16/23 13:09 BP 158/85 04/16/23 12:30 Pulse Ox 94 04/16/23 13:09 O2 Del Method Nasal Cannula 04/16/23 13:09 O2 Flow Rate 2 04/16/23 13:09 FiO2 30 04/16/23 08:22 04/15/23 04/16/23 04/16/23 22:59 06:59 14:59 Intake Total 50 / 50 900 / 900 Output Total 1700 / 1700 400 / 2100 Balance -1700 / -1700 -350 / -2050 900 / 900 Weight last 48 hrs Weight 108.409 kg Physical Exam Narrative: General: No acute distress, AO x3 HEENT: PERRLA, pupils bilaterally equal and reactive, pallors not present Chest: Normal vesicular breath sounds, no added sounds, equal good air entry bilaterally CVS: S1-S2 regular, no murmurs, no tachycardia, no gallops, no rubs Abdomen: Soft, nontender, no organomegaly, bowel sounds present Neuro: No focal deficits, no facial deformity, AO x3, power 5/5 in all limbs Extremities: B/L LE in lymphedema wraps Urinary Catheter Management: Jeffery: Cath Placed During This Visit: yes Reason for Continuing Indwelling Catheter: Accurate Measurement of Urinary Output in Critically Ill Patients Urinary Catheter Date of Insertion: 04/15/23 Urinary Catheter Time of Insertion: 16:45 Data 04/16/23 04:00 04/16/23 04:00 Micro: Microbiology 04/15/23 14:44 Blood Culture - Preliminary Blood SPECIMEN COLLECTED 04/15/23 14:46 Blood Culture - Preliminary Blood SPECIMEN COLLECTED A&P Assessment and plan (1) Pulmonary embolism: Patient presenting today with worsening dyspnea over the past 2 to 3 days. Continue Lovenox 1 mg/kg every 12 hours for treatment, transition to oral Eliquis today. Patient has previously not been compliant with Eliquis due to high cost. However states now he has insurance which covers prescription drugs and is willing to take Eliquis again. Qualifiers: Pulmonary embolism type: single subsegmental (without acute cor pulmonale) Qualified Code(s): I26.93 - Single subsegmental pulmonary embolism without acute cor pulmonale (2) Acute on chronic respiratory failure with hypoxia and hypercapnia: Likely to be multifactorial related to PE, CHF exacerbation and COPD exacerbation together with obesity hypoventilation. Continue BiPAP at nighttime and as needed (3) COPD exacerbation: COPD exacerbation Dexamethasone 6 mg IV every 24 hours---> convert to po prednisone 40mg daily negative respiratory viral panel Scheduled inhalation of DuoNeb and budesonide to continue BiPAP as needed (4) CHF exacerbation: Lasix 40 mg IV every 12 hours to continue today---> anticipate transition to oral regimen if does well over the next 24 hours Last echocardiogram from December 2022 showing diffuse hypokinesia of the left ventricle with a diminished ejection fraction of 48%. Diffuse hypokinesia of top of the right ventricle with mild dilatation. Overall impression that of acute on chronic systolic heart failure Monitor AGUSTO's Monitor renal function with diuresis. Currently troponin series with 55--> 49-->46--> no acute ST-T wave changes on EKG. Low suspicion for ACS overall. (5) Obstructive sleep apnea: BiPAP as above patient noncompliant with BiPAP at home. (6) Lymphedema: Follows with general surgery as outpatient. Chronic lymphedema of bilateral lower extremity. Leg elevation and lymphedema wraps to continue. Follow-up as outpatient. (7) Obesity, morbid: Plan DVT prophylaxis: Lovenox Full code Attestations Medical Necessity Statement*: Change Lovenox to Eliquis today, continue IV diuresis, assess for continued improvement. Anticipate he may be able to return home over the next 24 to 48 hours if remains stable with these interventions above Coding Level of Care Code Acute Code for Chg Fwd High MDM includes number and complexity of problems actively addressed during encounter, amount and/or complexity of data reviewed/ordered and described risk of complication, morbidity or mortality of management as documented Diagnoses Pulmonary embolism I26.93 Pulmonary embolism type: single subsegmental (without acute cor pulmonale) Acute on chronic respiratory failure with hypoxia and hypercapnia J96.21; J96.22 COPD exacerbation J44.1 CHF exacerbation I50.9 Obstructive sleep apnea G47.33 Lymphedema I89.0 Obesity, morbid E66.01
[2023-04-16] MEDS: dexamethasone 10 mg/mL INJ 6 MG IVP (14:53)
[2023-04-16] MEDS: cefTRIAXone 1,000 MG in sodium chloride 0.9% (plus) 50 ML 100 MG IV (17:38)
[2023-04-16] MEDS: morphine 4 mg/mL SDV 1 mL 2 MG IVP (18:02)
--- NOTE | 2023-04-16 20:54 | PC.NURSE ---
Abd pain: Notified Dr. Rodriguez of 02/04 abdominal pain, distended abdomen, and discomfort on palpitation @2049. New order for Bentyl 10mg PO ONCE NOW.
[2023-04-16] MEDS: dicyclomine 10 mg Capsule PO (21:02)
[2023-04-16] MEDS: apixaban 5 mg Tablet 10 MG PO (21:02)
[2023-04-17] VITALS (48 sets, daily range): BP systolic 92–164; BP diastolic 71–99; PULSE 83–105; RESP 12–26; TEMP 36.6–37.1; O2SAT 83–99
[2023-04-17] MEDS: ipratropium-albuterol 3 mL Neb INHALATION ×3 (01:04→22:11)
[2023-04-17] MEDS: morphine 4 mg/mL SDV 1 mL 2 MG IVP (02:17)
[2023-04-17 04:36] LABS: Basophils % 0.1 %; Eosinophils % 0.1 %; Hematocrit 55.1 % (37-53); Lymphocytes # 0.8 10^3/uL (0.8-4.8); Lymphocytes % 6.4 %; Mean Corpuscular HGB Conc 31.9 g/dL (30-55); Mean Corpuscular Hemoglobin 30.8 pg (27-33); Mean Corpuscular Volume 96.3 fl (82-101); Mean Platelet Volume 10.1 fL (7.4-10.4); Monocytes # 0.6 10^3/uL (0.2-0.9); Monocytes % 5.4 %; Neutrophils % 87.5 %; Nucleated Red Blood Cells % 0 %; Platelet Count 240 10^3/cmm (157-399); Red Blood Count 5.72 10^6/uL (3.85-5.65); Red Cell Distribution Width 12.1 % (12.1-15.1); White Blood Count 11.76 10^3/uL (3.29-11.43)
[2023-04-17 05:03] LABS: Blood Urea Nitrogen 31 mg/dL (8-23); Calcium 9.6 mg/dL (8.5-10.5); Carbon Dioxide 38 mmol/L (22-29); Chloride 94 mmol/L (98-107); Glucose 130 mg/dL (65-115); Osmolality Calculated 304 mOsm/kg (285-295); Sodium 143 mmol/L (136-145)
[2023-04-17 05:06] LABS: Anion Gap 14.7 (5-19); Potassium 3.7 mmol/L (3.5-5.1)
[2023-04-17] MEDS: FUROsemide 10 mg/mL SDV 4mL 40 MG IVP (05:14)
[2023-04-17] MEDS: predniSONE 20 mg Tablet 40 MG PO (08:31)
[2023-04-17] MEDS: pantoprazole DR 40 mg Tablet PO (08:31)
[2023-04-17] MEDS: amlodipine 10 mg Tablet PO (08:31)
[2023-04-17] MEDS: apixaban 5 mg Tablet 10 MG PO ×2 (08:32→20:22)
--- NOTE | 2023-04-17 08:52 | PC.NURSE ---
continues to have some abdominal discomfort and noted firm but nontender,, requesting food stating i am hungry this am off bipap at this time for breakfast , noted sats decrease with nc
--- NOTE | 2023-04-17 12:07 | CTR_ITS ---
PROCEDURE INFORMATION: Exam: CT Abdomen And Pelvis Without Contrast Exam date and time: 04/17/2023 12:18 PM Age: 67 years old Clinical indication: Abdominal pain; Generalized; Additional info: Evaluate for sbo TECHNIQUE: Imaging protocol: Computed tomography of the abdomen and pelvis without contrast. Radiation optimization: All CT scans at this facility use at least one of these dose optimization techniques: automated exposure control; mA and/or kV adjustment per patient size (includes targeted exams where dose is matched to clinical indication); or iterative reconstruction. REPORTING DATA: Count of CT and Cardiac NM exams in prior 12 months: This patient has received 7 known CTs and 0 known cardiac nuclear medicine studies in the 12 months prior to the current study. COMPARISON: CT abdomen pelvis w con* [id number] 01/03/2023 8:51 PM RADIATION DOSE METRICS: Total DLP (mGy-cm): 1204.23 FINDINGS: Lungs: Mild elevation right hemidiaphragm with bronchiectasis and subsegmental atelectasis right lung base progressed from previous exam. The minor atelectatic changes left lung base, stable. Heart: Heart is enlarged. Liver: Normal. No mass. Gallbladder and bile ducts: Normal. No calcified stones. No ductal dilation. Pancreas: Unremarkable. Main pancreatic duct is not significantly dilated. Spleen: There are scattered calcified granulomas within the spleen, longstanding, otherwise spleen is unremarkable. Adrenal glands: Normal. No mass. Kidneys and ureters: 4 cm simple exophytic cortical cyst arising the posterior cortex lower pole right kidney. 1.5 cm isodense cortical lesion arising from the lateral cortex lower pole right kidney, indeterminate. Left kidney is unremarkable. Stomach and bowel: Moderate generalized gaseous distention involving majority the large bowel without evidence of an obstructing mass suggestive of colonic ileus. Scattered diverticula sigmoid colon without evidence of acute diverticulitis. Small bowel loops are unremarkable. Appendix: No evidence of appendicitis. Intraperitoneal space: Unremarkable. No free air. No significant fluid collection. Vasculature: Scattered atherosclerotic changes of the abdominal aorta and iliac vessels. No aortic aneurysm. Lymph nodes: Mild-moderate pelvic and inguinal lymphadenopathy, mildly improved from previous exam. Urinary bladder: There is a Jeffery catheter balloon within the urinary bladder which is collapsed and difficult to further assess. Reproductive: Prostate gland cannot be identified and may have been previously removed. Bones/joints: Multilevel degenerative endplate osteophytes throughout the thoracolumbar spine. No acute bony abnormalities. Soft tissues: Diastasis of the lower abdominal wall stabilized by a abdominal wall mesh unchanged. There is some irregular soft tissue thickening presumed represent scarring or granulation tissue superficial to the posteromedial margins of the gluteal musculature on both sides of midline that are stable and presumed postsurgical in nature. CT/CT abdomen pelvis wo con [id number] IMPRESSION: 1. Moderate generalized gaseous distention of the large bowel most suggestive of colonic ileus. No compelling evidence of conical bowel obstruction. 2. Mild-moderate pelvic lymphadenopathy mildly improved from previous exam. Continued follow-up advised. 3. 1.5 cm indeterminate cortical lesion lower pole right kidney. Recommend nonemergent renal ultrasound exam for further evaluation. 4. Elevated right hemidiaphragm with progressive right basilar subsegmental atelectasis. 5. Additional nonemergent findings as above. COMMENTS: Consistent with the [employer]'s Incidental Findings Committee white paper (J Am Clari Radiol 2018): Any incidental renal lesion less than 1 cm or classified as too small to characterize, or any incidental cystic renal lesion characterized as simple-appearing, is likely benign. No follow-up imaging is recommended for these lesions per consensus recommendations based on imaging criteria.
[2023-04-17] MEDS: mineral oil ENEMA 133 mL PR (13:38)
[2023-04-17] MEDS: lactulose oral liq 20 gm/30 mL UDC 30 GM PO (13:38)
--- NOTE | 2023-04-17 13:48 | PC.NURSE ---
pt explained procedure checking for impaction and giving enema after ct exam noted large stool content and gas unable to pass.. noted increase abdominal girth and decrease lung capacity
--- NOTE | 2023-04-17 13:51 | PM.PN ---
Subjective Subjective: c/o abdominal pain today, Has not had BM in 4-5 days, states unable to pass gas additionally. Currently off bipap , saturating 92-95% Medications: Reviewed: Yes Vitals/I&O/Wt Last Vital Signs Temp 98.8 F 04/17/23 04:00 Pulse 93 04/17/23 10:00 Resp 16 04/17/23 10:00 BP 136/77 04/17/23 10:00 Pulse Ox 95 04/17/23 10:00 O2 Del Method BiPAP 04/17/23 08:00 O2 Flow Rate 4 04/17/23 06:00 FiO2 30 04/17/23 08:00 04/16/23 04/17/23 04/17/23 22:59 06:59 14:59 Intake Total 330 / 1230 250 / 1480 350 / 350 Output Total 850 / 850 675 / 1525 Balance -520 / 380 -425 / -45 350 / 350 Weight last 48 hrs Weight 108.409 kg Physical Exam Narrative: General: No acute distress, AO x3 HEENT: PERRLA, pupils bilaterally equal and reactive, pallors not present Chest: Normal vesicular breath sounds, no added sounds, equal good air entry bilaterally CVS: S1-S2 regular, no murmurs, no tachycardia, no gallops, no rubs Abdomen: Soft, nontender, no organomegaly, bowel sounds present Neuro: No focal deficits, no facial deformity, AO x3, power 5/5 in all limbs EXt: improving LE pitting edema Urinary Catheter Management: Jeffery: Cath Placed During This Visit: yes Reason for Continuing Indwelling Catheter: Accurate Measurement of Urinary Output in Critically Ill Patients Urinary Catheter Date of Insertion: 04/15/23 Urinary Catheter Time of Insertion: 16:45 Data 04/17/23 03:41 04/17/23 03:41 Micro: Microbiology 04/15/23 16:45 Urine Culture - Preliminary Urine,Clean Catch Gram Negative Rods 04/15/23 14:44 Blood Culture - Preliminary Blood NEGATIVE TO DATE 04/15/23 14:46 Blood Culture - Preliminary Blood NEGATIVE TO DATE A&P Assessment and plan (1) Pulmonary embolism: Patient presenting today with worsening dyspnea over the past 2 to 3 days. Continue Eliquis 10mg BID for 7 days followed by 5mg BID Qualifiers: Pulmonary embolism type: single subsegmental (without acute cor pulmonale) Qualified Code(s): I26.93 - Single subsegmental pulmonary embolism without acute cor pulmonale (2) Acute on chronic respiratory failure with hypoxia and hypercapnia: Likely to be multifactorial related to PE, CHF exacerbation and COPD exacerbation together with obesity hypoventilation. Continue BiPAP at nighttime and as needed (3) COPD exacerbation: COPD exacerbation continue po prednisone 40mg daily negative respiratory viral panel Scheduled inhalation of DuoNeb and budesonide to continue BiPAP as needed and at night time (4) CHF exacerbation: Additional Bumex 1mg iv x 1 Monitor urine output Start Bumex 2mg po BID Last echocardiogram from December 2022 showing diffuse hypokinesia of the left ventricle with a diminished ejection fraction of 48%. Diffuse hypokinesia of top of the right ventricle with mild dilatation. Overall impression that of acute on chronic systolic heart failure Monitor AGUSTO's renal function currently stable Currently troponin series with 55--> 49-->46--> no acute ST-T wave changes on EKG. Low suspicion for ACS overall. Mild trop elevation likely related to CHF (5) Obstructive sleep apnea: BiPAP as above patient noncompliant with BiPAP at home. (6) Lymphedema: Follows with general surgery as outpatient. Chronic lymphedema of bilateral lower extremity. Leg elevation and lymphedema wraps to continue. Follow-up as outpatient. (7) Obesity, morbid: (8) Constipation: CT abdomen done to evalaute fror possible SBO--> study shows colonic ileus and fecal retention. No high grade SBO. Start rectal enema (9) UTI (urinary tract infection): Urine cx showing GNR prelim, currently on ceftriaxone 1 g iv q24h empirically Plan DVT prophylaxis: Eliquis Full code Transfer out ot ICU to [facility]SU Attestations Medical Necessity Statement*: symptomatically improving from reporatory standpoint but now c/o abdominal pain and urine cx +. Continue iv abx, iv diuresis today, transfer out of ICU Coding Level of Care Code Acute Code for Chg Fwd Moderate MDM includes number and complexity of problems actively addressed during encounter, amount and/or complexity of data reviewed/ordered and described risk of complication, morbidity or mortality of management as documented Diagnoses Pulmonary embolism I26.93 Pulmonary embolism type: single subsegmental (without acute cor pulmonale) Acute on chronic respiratory failure with hypoxia and hypercapnia J96.21; J96.22 COPD exacerbation J44.1 CHF exacerbation I50.9 Obstructive sleep apnea G47.33 Lymphedema I89.0 Obesity, morbid E66.01 Constipation K59.00 UTI (urinary tract infection) N39.0
[2023-04-17] MEDS: bumetanide 0.25 mg/mL SDV 4 mL 1 MG IVP (14:11)
--- NOTE | 2023-04-17 14:58 | PC.NURSE ---
ss enema given large amts of flatus passed at this time no stool noted yet but stomach not as tight
[2023-04-17] MEDS: cefTRIAXone 1,000 MG in sodium chloride 0.9% (plus) 50 ML 100 MG IV (17:09)
[2023-04-17 21:13] LABS: Bacillus cereus group Not Detected (NOT DETECT); Bacillus subtillis group Not Detected (NOT DETECT); Corynebacterium Not Detected (NOT DETECT); Cutibacterium acnes (P.acnes) Not Detected (NOT DETECT); Enterococcus Not Detected (NOT DETECT); Enterococcus faecalis Not Detected (NOT DETECT); Enterococcus faecium Not Detected (NOT DETECT); Lactobacillus species Not Detected (NOT DETECT); Listeria Not Detected (NOT DETECT); Listeria monocytogenes Not Detected (NOT DETECT); Micrococcus Not Detected (NOT DETECT); Pan Candida Not Detected (NOT DETECT); Pan Gram-Negative Not Detected (NOT DETECT); Staphylococcus epidermidis Not Detected (NOT DETECT); Staphylococcus lugdunensis Not Detected (NOT DETECT); Staphylococcus species Not Detected (NOT DETECT); Streptococcus agalactiae Not Detected (NOT DETECT); Streptococcus anginosus group Not Detected (NOT DETECT); Streptococcus pneumoniae Not Detected (NOT DETECT); Streptococcus pyogenes Not Detected (NOT DETECT); Streptococcus species Not Detected (NOT DETECT)
[2023-04-18] VITALS (20 sets, daily range): BP systolic 118–157; BP diastolic 65–96; PULSE 64–104; RESP 12–24; TEMP 36.3–37.2; O2SAT 84–98
[2023-04-18] MEDS: ondansetron 2 mg/ML SDV 2 mL 4 MG IVP (02:47)
[2023-04-18] MEDS: ipratropium-albuterol 3 mL Neb INHALATION ×4 (03:13→19:57)
[2023-04-18 05:50] LABS: Basophils % 0.1 %; Eosinophils % 0.1 %; Hematocrit 50.9 % (37-53); Lymphocytes # 1.2 10^3/uL (0.8-4.8); Lymphocytes % 9.5 %; Mean Corpuscular HGB Conc 32.2 g/dL (30-55); Mean Corpuscular Hemoglobin 30.9 pg (27-33); Mean Corpuscular Volume 95.9 fl (82-101); Mean Platelet Volume 9.6 fL (7.4-10.4); Monocytes # 1.3 10^3/uL (0.2-0.9); Monocytes % 10.3 %; Neutrophils # 9.91 10^3/uL (1.8-7.7); Neutrophils % 79.4 %; Nucleated Red Blood Cells % 0 %; Platelet Count 296 10^3/cmm (157-399); Red Blood Count 5.31 10^6/uL (3.85-5.65); White Blood Count 12.46 10^3/uL (3.29-11.43)
[2023-04-18 06:18] LABS: Alanine Aminotransferase 41 U/L (0-41); Albumin Level 4.1 g/dL (3.5-5.2); Alkaline Phosphatase 73 U/L (40-130); Blood Urea Nitrogen 34 mg/dL (8-23); Calcium 9.4 mg/dL (8.5-10.5); Carbon Dioxide 40 mmol/L (22-29); Chloride 91 mmol/L (98-107); Globulin 2.5 g/dL (1.3-4.6); Glomerular Filtration Rate 113.2 mL/min (90-130); Glucose 109 mg/dL (65-115); Osmolality Calculated 298 mOsm/kg (285-295); Sodium 140 mmol/L (136-145); Total Bilirubin 0.8 mg/dL (0.15-1.2); Total Protein 6.6 g/dL (6.6-8.7)
[2023-04-18 06:19] LABS: Anion Gap 12.5 (5-19); Aspartate Amino Transferase 39 U/L (0-40); Potassium 3.5 mmol/L (3.5-5.1)
[2023-04-18] MEDS: bumetanide 1 mg Tablet 2 MG PO ×2 (09:25→17:26)
[2023-04-18] MEDS: azithromycin 250 mg Tablet 500 MG PO (09:25)
[2023-04-18] MEDS: polyethylene glycol 3350 Pkt 17 gm PO (09:26)
[2023-04-18] MEDS: pantoprazole DR 40 mg Tablet PO (09:26)
[2023-04-18] MEDS: amlodipine 10 mg Tablet PO (09:26)
[2023-04-18] MEDS: apixaban 5 mg Tablet 10 MG PO ×2 (09:26→21:28)
[2023-04-18] MEDS: predniSONE 20 mg Tablet 40 MG PO (09:26)
--- NOTE | 2023-04-18 15:49 | PC.NURSE ---
spo2 drop to 83% on room, RT at bedside as well. Pt stated he does not have any oxygen at home. Pt oxygen prong is out from his nares. reminded and educated pt that it is important for him to use his oxygen continuously to prevent respiratory failure and mechanical intubation due to this. Pt stated he was intubated before. Dr notified of his oxygen status.
[2023-04-18] MEDS: cefTRIAXone 1,000 MG in sodium chloride 0.9% (plus) 50 ML 100 MG IV (17:26)
[2023-04-19] VITALS (10 sets, daily range): BP systolic 132–138; BP diastolic 77–82; PULSE 77–94; RESP 12–26; TEMP 36.4–36.6; O2SAT 87–95
[2023-04-19] MEDS: ipratropium-albuterol 3 mL Neb INHALATION ×2 (01:27→09:01)
[2023-04-19 07:44] LABS: Basophils % 0.2 %; Eosinophils % 0.2 %; Hematocrit 50.3 % (37-53); Lymphocytes # 1.4 10^3/uL (0.8-4.8); Lymphocytes % 15.1 %; Mean Corpuscular HGB Conc 32.4 g/dL (30-55); Mean Corpuscular Hemoglobin 30.9 pg (27-33); Mean Corpuscular Volume 95.3 fl (82-101); Mean Platelet Volume 8.8 fL (7.4-10.4); Monocytes # 1.1 10^3/uL (0.2-0.9); Monocytes % 11.6 %; Neutrophils # 6.88 10^3/uL (1.8-7.7); Neutrophils % 72.4 %; Nucleated Red Blood Cells % 0 %; Platelet Count 244 10^3/cmm (157-399); Red Blood Count 5.28 10^6/uL (3.85-5.65)
[2023-04-19] MEDS: azithromycin 250 mg Tablet 500 MG PO (08:07)
[2023-04-19] MEDS: bumetanide 1 mg Tablet 2 MG PO (08:08)
[2023-04-19] MEDS: pantoprazole DR 40 mg Tablet PO (08:08)
[2023-04-19] MEDS: predniSONE 20 mg Tablet 40 MG PO (08:09)
[2023-04-19] MEDS: apixaban 5 mg Tablet 10 MG PO (08:09)
[2023-04-19] MEDS: amlodipine 10 mg Tablet PO (08:10)
[2023-04-19] MEDS: polyethylene glycol 3350 Pkt 17 gm PO (08:10)
[2023-04-19 08:29] LABS: Alanine Aminotransferase 36 U/L (0-41); Albumin Level 3.7 g/dL (3.5-5.2); Alkaline Phosphatase 64 U/L (40-130); Aspartate Amino Transferase 25 U/L (0-40); Blood Urea Nitrogen 30 mg/dL (8-23); Carbon Dioxide 39 mmol/L (22-29); Globulin 2.5 g/dL (1.3-4.6); Glomerular Filtration Rate 113.2 mL/min (90-130); Glucose 110 mg/dL (65-115); Total Bilirubin 1.1 mg/dL (0.15-1.2); Total Protein 6.2 g/dL (6.6-8.7)
[2023-04-19] MEDS: ciprofloxacin 500 mg Tablet PO (08:37)
[2023-04-19] MEDS: docusate sodium 100 mg Capsule PO (08:37)
[2023-04-19 08:44] LABS: Anion Gap 12.4 (5-19); Chloride 91 mmol/L (98-107); Osmolality Calculated 295 mOsm/kg (285-295); Potassium 3.4 mmol/L (3.5-5.1); Sodium 139 mmol/L (136-145)
--- NOTE | 2023-04-19 11:43 | PC.SOCIAL ---
IMM Updated Updated pt on IMM. No questions voiced. Provided pt a copy. Initialed, dated, & timed copy in chart.
--- NOTE | 2023-04-19 13:14 | PM.DCS ---
Discharge Providers Date of Admission: 04/15/23 17:43 Date of Discharge: April 19, 2023 Attending Provider at Admission: Pamela Ray MD Attending Provider at Discharge: Abhinav Benitez MD Primary Care Provider: Ed Branch Diagnoses at Discharge Discharge Diagnosis (1) Pulmonary embolism: Status: Acute Qualifiers: Pulmonary embolism type: single subsegmental (without acute cor pulmonale) Qualified Code(s): I26.93 - Single subsegmental pulmonary embolism without acute cor pulmonale (2) Acute on chronic respiratory failure with hypoxia and hypercapnia: Status: Acute (3) COPD exacerbation: Status: Resolved (4) CHF exacerbation: Status: Resolved (5) Obstructive sleep apnea: Status: Acute (6) Lymphedema: Status: Acute Permanent problem details: -has chronic lymphedema of bilateral LE -LE elevation and lymphedema wraps if appropriate -negative DVT per venous duplex (7) Obesity, morbid: Status: Acute (8) Constipation: Status: Acute (9) UTI (urinary tract infection): Status: Acute Reason for Visit Reason for Visit: general weakness Hospital Course Hospital Course Satish Jones is a 67 year old male With past medical history of PE, prostate cancer, alcohol abuse, who presents to [facility] for complaints of shortness of breath Patient was admitted to [facility] for shortness of breath, secondary to subsegmental pulmonary embolism, received inpatient anticoagulation therapy, transition to Eliquis therapy on discharge, advised of compliance, morbidity and mortality, he voiced understanding, all questions answered ? Patient also had CHF exacerbation received inpatient diuresis, overall clinically improved ?, Had evidence of a UTI during his hospitalization, urine cultures growing Proteus, E. coli susceptible to Augmentin, discharged on Augmentin ? Had constipation during his hospitalization, CAT scan showing colonic ileus, received bowel regimen, having several bowel movements before discharge ? Patient was advised to abstain from alcohol consumption ? Discussed Eliquis therapy in detail with patient if he has bloody or black stools, lightheadedness or dizziness to go to emergency room Physical Exam Const: COMMON NORMALS: no acute distress and patient oriented x3 Resp: COMMON NORMALS: normal respiratory effort, No retractions, No use of accessory muscles and clear to auscultation bilaterally AUSCULTATION: clear to auscultation bilaterally Cardio: COMMON NORMALS: regular rate, regular rhythm, S1 normal heart sound present and S2 normal heart sound present RATE: regular rate RHYTHM: regular rhythm HEART SOUNDS: S1 normal heart sound present and S2 normal heart sound present GI: COMMON NORMALS: Normal to inspection, nondistended, normoactive bowel sounds present and non-tender Extremity: COMMON NORMALS: no pedal edema Neuro: COMMON NORMALS: patient oriented x3 Psych: COMMON NORMALS: mental status grossly normal Urinary Catheter Management: Jeffery: Cath Placed During This Visit: yes, but has since been removed by the nurse Reason for Continuing Indwelling Catheter: Decision to DC Catheter Urinary Catheter Date of Insertion: 04/15/23 Urinary Catheter Time of Insertion: 16:45 Date Urinary Catheter Removed: 04/19/23 Time Urinary Catheter Discontinued: 11:50 Discharge Data Studies Completed and Pending Completed Studies During Hospitalization Category Date Time Status CT abdomen pelvis wo con [id number] Routine Cat Scan 04/17/23 12:[address] angio chest PE protcl [id number] Stat Cat Scan 04/15/23 15:[address] cervical spin wo con* [id number] Routine Cat Scan 04/15/23 16:[address] head wo con* [id number] Stat Cat Scan 04/15/23 14:27 Completed XR chest 1V portable [id number] Stat Exams 04/15/23 14:27 Completed Pending at discharge Category Date Time Status Blood Culture Stat Lab 04/15/23 14:44 Results Sputum Culture and Gram Stain Routine Lab 04/19/23 01:42 Results Radiology Impressions Head CT 04/15/23 14:27 IMPRESSION: No acute intracranial abnormality. Chest CTA 04/15/23 15:22 IMPRESSION: 1. Mild pulmonary emboli within lower right lung as noted above. 2. Right [id number]-left basilar atelectasis with suggestion of mild right basilar infiltrate at the diaphragm. 3. No significant change otherwise with previous exam. ADDENDUM: 04/15/23 [id number] THIS REPORT CONTAINS FINDINGS THAT MAY BE CRITICAL TO PATIENT CARE. The findings were verbally communicated via telephone conference with Dr. Chinchilla at 6:24 PM CDT on 04/15/2023. The findings were acknowledged and understood. Cervical Spine CT 04/15/23 16:13 IMPRESSION: 1. No acute osseous injury. 2. There is a 2.1 cm right thyroid nodule present. Recommend ultrasound follow-up if not performed previously. COMMENTS: Consistent with the [employer]'s Incidental Findings Committee white paper (J Am Clari Radiol 2015): In patients aged 35 years and older with an incidental thyroid nodule equal to or greater than 1.[address], MRI or extrathyroidal US, further evaluation with dedicated thyroid US is recommended for patients with normal life expectancy and without comorbidities. For smaller nodules without suspicious features, no further evaluation or follow up is recommended. Abdomen/Pelvis CT 04/17/23 12:07 IMPRESSION: 1. Moderate generalized gaseous distention of the large bowel most suggestive of colonic ileus. No compelling evidence of conical bowel obstruction. 2. Mild-moderate pelvic lymphadenopathy mildly improved from previous exam. Continued follow-up advised. 3. 1.5 cm indeterminate cortical lesion lower pole right kidney. Recommend nonemergent renal ultrasound exam for further evaluation. 4. Elevated right hemidiaphragm with progressive right basilar subsegmental atelectasis. 5. Additional nonemergent findings as above. COMMENTS: Consistent with the [employer]'s Incidental Findings Committee white paper (J Am Clari Radiol 2018): Any incidental renal lesion less than 1 cm or classified as too small to characterize, or any incidental cystic renal lesion characterized as simple-appearing, is likely benign. No follow-up imaging is recommended for these lesions per consensus recommendations based on imaging criteria. Laboratory Results WBC 9.50 10^3/uL (3.29-11.43) 04/19/23 07:35 RBC 5.28 10^6/uL (3.85-5.65) 04/19/23 07:35 Hgb 16.30 g/dL (11.27-16.99) 04/19/23 07:35 Hct 50.3 % (37-53) 04/19/23 07:35 MCV 95.3 fl (82-101) 04/19/23 07:35 MCH 30.9 pg (27-33) 04/19/23 07:35 MCHC 32.4 g/dL (30-55) 04/19/23 07:35 RDW 12.0 % (12.1-15.1) L 04/19/23 07:35 Plt Count 244 10^3/cmm (157-399) 04/19/23 07:35 MPV 8.8 fL (7.4-10.4) 04/19/23 07:35 Neut % (Auto) 72.4 % 04/19/23 07:35 Lymph % (Auto) 15.1 % 04/19/23 07:35 [place] % (Auto) 11.6 % 04/19/23 07:35 Eos % (Auto) 0.2 % 04/19/23 07:35 Baso % (Auto) 0.2 % 04/19/23 07:35 Neut # (Auto) 6.88 10^3/uL (1.8-7.7) 04/19/23 07:35 Lymph # (Auto) 1.4 10^3/uL (0.8-4.8) 04/19/23 07:35 [place] # (Auto) 1.1 10^3/uL (0.2-0.9) H 04/19/23 07:35 Eos # (Auto) 0.0 10^3/uL (0.0-0.8) 04/19/23 07:35 Baso # (Auto) 0.0 10^3/uL (0.0-0.1) 04/19/23 07:35 Nucleated RBC % (auto) 0 % 04/19/23 07:35 Nucleated RBCs # 0.0 /100WBC 04/19/23 07:35 Specimen Type Arterial 04/15/23 15:16 Sample Site Radial, left 04/15/23 15:16 ABG pH 7.30 (7.35-7.45) L 04/15/23 15:16 ABG pCO2 70.6 mmHg (35-45) H* 04/15/23 15:16 ABG pO2 67.8 mmHg (80.0-100.0) L 04/15/23 15:16 ABG HCO3 34.6 mmol/L (22-26) H 04/15/23 15:16 ABG O2 Saturation 92.6 04/15/23 15:16 ABG Base Excess 4.9 mmol/L (-2.0-2.0) H 04/15/23 15:16 Toro Test Pos 04/15/23 15:16 A-a O2 Gradient Not Reportable 04/15/23 15:16 Hematocrit 53.7 % (42-52) H 04/15/23 15:16 Hgb O2 Saturation 88.5 % (95-100) L 04/15/23 15:16 Carboxyhemoglobin 4.1 %THgb (0.4-20.1) 04/15/23 15:16 Methemoglobin 0.3 % (0.4-1.5) L 04/15/23 15:16 Total Hemoglobin 17.5 g/dL (14-18) 04/15/23 15:16 Sodium 146.0 mmol/L (131-143) H 04/15/23 15:16 Potassium 3.0 mmol/L (3.5-5.0) L 04/15/23 15:16 Glucose 108.0 mg/dL (70-115) 04/15/23 15:16 Ionized Calcium 1.2 mmol/L (1.1-1.4) 04/15/23 15:16 O2 Delivery Device Nc 04/15/23 15:16 FiO2 3.0 % 04/15/23 15:16 Editor Dictionary ID Demetrius 04/15/23 15:16 Sodium 139 mmol/L (136-145) 04/19/23 07:35 Potassium 3.4 mmol/L (3.5-5.1) L 04/19/23 07:35 Chloride 91 mmol/L (98-107) L 04/19/23 07:35 Carbon Dioxide 39 mmol/L (22-29) H 04/19/23 07:35 Anion Gap 12.4 (5-19) 04/19/23 07:35 BUN 30 mg/dL (8-23) H 04/19/23 07:35 Creatinine 0.7 mg/dL (0.7-1.2) 04/19/23 07:35 GFR Calculation 113.2 mL/min (90-130) 04/19/23 07:35 Glucose 110 mg/dL (65-115) 04/19/23 07:35 Calculated Osmolality 295 mOsm/kg (285-295) 04/19/23 07:35 Lactic Acid 1.3 mmol/L (0.5-2.2) 04/15/23 14:44 Calcium 9.0 mg/dL (8.5-10.5) 04/19/23 07:35 Total Bilirubin 1.1 mg/dL (0.15-1.2) 04/19/23 07:35 AST 25 U/L (0-40) 04/19/23 07:35 ALT 36 U/L (0-41) 04/19/23 07:35 Alkaline Phosphatase 64 U/L (40-130) 04/19/23 07:35 Troponin T Baseline 55 ng/L (0-15) H 04/15/23 14:44 Troponin T 120 Minute 49.49 ng/L (0-15) H 04/15/23 16:51 Delta Troponin T -5.51 ABS# (0-10) L 04/15/23 16:51 Troponin T Hi Sens 6Hr 46.07 ng/L (0-15) H 04/15/23 20:41 Troponin T Hi Sens 6Hr Delta -8.93 ng/L (0-12) L 04/15/23 20:41 NT-Pro-B Natriuret Pep 197 pg/mL (0-125) H 04/15/23 14:44 Total Protein 6.2 g/dL (6.6-8.7) L 04/19/23 07:35 Albumin 3.7 g/dL (3.5-5.2) 04/19/23 07:35 Globulin 2.5 g/dL (1.3-4.6) 04/19/23 07:35 Urine Color Audra (Yellow) 04/15/23 16:45 Urine Appearance Cloudy (CLEAR) A 04/15/23 16:45 Urine pH 8 (5-7) H 04/15/23 16:45 Ur Specific [place] 1.015 (1.005-1.030) 04/15/23 16:45 Urine Protein Trace (Negative) H 04/15/23 16:45 Urine Glucose (UA) Norm (Normal) 04/15/23 16:45 Urine Ketones 2+ (Negative) H 04/15/23 16:45 Urine Blood 3+ (Negative) H 04/15/23 16:45 Urine Nitrate Negative (Negative) 04/15/23 16:45 Urine Bilirubin Neg (Negative) 04/15/23 16:45 Prot Sulfosalicylic Acd Positive (Negative) 04/15/23 16:45 Urine Urobilinogen 1 mg/dL (Negative) H 04/15/23 16:45 Ur Leukocyte Esterase 1+ (Negative) H 04/15/23 16:45 Urine RBC 0-4 /hpf (0-2) H 04/15/23 16:45 Urine WBC 5-10 /hpf (0-5) H 04/15/23 16:45 Ur Squamous Epith Cells Rare /hpf (0-5) 04/15/23 16:45 Triple Phos Crystals 0-4 /hpf H 04/15/23 16:45 Other Crystals Ca carbonate 2+ /hpf 04/15/23 16:45 Amorphous Sediment Not Reportable 04/15/23 16:45 Urine Bacteria 2+ /hpf (NONE) H 04/15/23 16:45 Urine Mucus 1+ /hpf 04/15/23 16:45 Nasal Influ A H1 2009 PCR Not detected (NOT DETECT) 04/16/23 07:30 Adenovirus (PCR) Not detected (NOT DETECT) 04/16/23 07:30 C. pneumoniae DNA (PCR) Not detected (NOT DETECT) 04/16/23 07:30 Coronavirus 229E (PCR) Not detected (NOT DETECT) 04/16/23 07:30 Human Metapneumovir PCR Not detected (NOT DETECT) 04/16/23 07:30 Influenza A (H1) PCR Not detected (NOT DETECT) 04/16/23 07:30 Influenza A (H3) PCR Not detected (NOT DETECT) 04/16/23 07:30 Influenza Type A (PCR) Not detected (NOT DETECT) 04/16/23 07:30 Influenza Type B (PCR) Not detected (NOT DETECT) 04/16/23 07:30 M. pneumoniae (PCR) Not detected (NOT DETECT) 04/16/23 07:30 Parainfluenza 1 (PCR) Not detected (NOT DETECT) 04/16/23 07:30 Parainfluenza 2 (PCR) Not detected (NOT DETECT) 04/16/23 07:30 Parainfluenza 3 (PCR) Not detected (NOT DETECT) 04/16/23 07:30 Parainfluenza 4 (PCR) Not detected (NOT DETECT) 04/16/23 07:30 RSV Type A (PCR) Not detected (NOT DETECT) 04/16/23 07:30 RSV Type B (PCR) Not detected (NOT DETECT) 04/16/23 07:30 Entero/Rhino (PCR) Not detected (NOT DETECT) 04/16/23 07:30 SARS-CoV-2 (PCR) Not detected (NOT DETECT) 04/16/23 07:30 Vitals Last Vital Signs Temp 97.6 F 04/19/23 11:00 Pulse 84 04/19/23 11:00 Resp 16 04/19/23 11:00 BP 136/77 04/19/23 11:00 Pulse Ox 90 04/19/23 12:00 O2 Del Method Nasal Cannula 04/19/23 11:00 O2 Flow Rate 3 04/19/23 12:00 FiO2 30 04/19/23 02:58 Discharge Plan Discharge Patient Disposition: Home Condition: Stable Prescriptions: New Eliquis 5 mg Tablet 5 mg PO BID@0900,2100 30 Days Qty: 60 0RF prednisone 20 mg Tablet 40 mg PO DAILY 5 Days Qty: 10 0RF pantoprazole 40 mg Tablet,Delayed Release (Dr/Ec) 40 mg PO DAILY 30 Days Qty: 30 0RF bumetanide 1 mg Tablet 2 mg PO BID 30 Days Qty: 120 0RF amoxicillin-pot clavulanate 875-125 mg tablet 1 tab PO BID 5 Days Qty: 10 0RF docusate sodium 100 mg Capsule 100 mg PO BID 30 Days Qty: 60 0RF Continued aspirin 81 mg Tablet,Delayed Release (Dr/Ec) 81 mg PO QAM acetaminophen 500 mg Tablet 1,000 mg PO Q6H PRN (Reason: Pain) albuterol sulfate 90 mcg/actuation HFA aerosol inhaler 2 puff INHALATION Q6H PRN (Reason: Shortness Of Breath) amlodipine 10 mg tablet 10 mg PO DAILY Discontinued furosemide 80 mg tablet 80 mg PO DAILY Discharge Orders: Discharge Order (Routine); Ordered 04/18/23 Ordered By: Pamela Ray Other Ambulatory Orders: DME: Oxygen (Order) Location: None Selected Ordered By: Abhinav Benitez Referrals: [facility] [place] [Outside] Ed Branch [Primary Care Provider] - 04/21/23 12:00 pm (This appointment is in the [facility]. ) Discharge Diet: Cardiac Discharge Activity: Resume usual activity Patient Instructions: Bumetanide (By mouth) (Bumex), Prednisone (By mouth) (predniSONE Intensol, Prednicot, Deltasone, Shai), Amoxicillin (By mouth), Pantoprazole (By mouth) (Protonix), Apixaban (By mouth) (Eliquis), Pulmonary Embolism (DC), Urinary Tract Infection in Men (DC), Lymphedema (DC), COPD Stoplight, Opioid Safety Discharge Attestations Time Spent in Discharge Care*: greater than 30 min Status at Discharge: Cognitive status at discharge: cognitively intact, Behavioral status at discharge: cooperative, Quality Metrics Clinical Quality Measures [ No reported AMI, CVA or VTE this stay] Coding Level of Care Code 41559 Total time (in minutes) for Discharge: 45 Diagnoses Pulmonary embolism I26.93 Pulmonary embolism type: single subsegmental (without acute cor pulmonale) Acute on chronic respiratory failure with hypoxia and hypercapnia J96.21; J96.22 COPD exacerbation J44.1 CHF exacerbation I50.9 Obstructive sleep apnea G47.33 Lymphedema I89.0 Obesity, morbid E66.01 Constipation K59.00 UTI (urinary tract infection) N39.0
[2023-05-25 11:38] LABS: ABG PCO2 70.6 mmHg (35-45)
== END 2023-04-19 16:36 | disposition home or self-care (01) | DRG 175 ==
LOC: ER 14:57 → ICU 16:16 → CSU 04-17 18:27
PROVIDERS: Internal Medicine; Admitting Provider Student in an Organized Health Care Education/Training Program; Emergency Provider Family Medicine; PCP Family Medicine; Visit Provider Family Medicine
DX: I26.93 Single subsegmental thrombotic pulmonary embolism without acute cor pulmonale (principal); I50.23 Acute on chronic systolic (congestive) heart failure; J96.22 Acute and chronic respiratory failure with hypercapnia; J96.21 Acute and chronic respiratory failure with hypoxia; N39.0 Urinary tract infection, site not specified; K56.7 Ileus, unspecified; E66.2 Morbid (severe) obesity with alveolar hypoventilation; Z20.822 Contact with and (suspected) exposure to COVID-19; B96.4 Proteus (mirabilis) (morganii) as the cause of diseases classified elsewhere; B96.20 Unspecified Escherichia coli [E. coli] as the cause of diseases classified elsewhere; Z86.711 Personal history of pulmonary embolism; Z85.46 Personal history of malignant neoplasm of prostate; F10.10 Alcohol abuse, uncomplicated; K59.00 Constipation, unspecified; Z79.82 Long term (current) use of aspirin; Z90.79 Acquired absence of other genital organ(s); Z68.35 Body mass index [BMI] 35.0-35.9, adult; Z99.89 Dependence on other enabling machines and devices; Z91.199 Patient's noncompliance with other medical treatment and regimen due to unspecified reason; I11.0 Hypertensive heart disease with heart failure
CPT/HCPCS: 36415; 36600; 51702; 70450; 71045; 71275; 72125; 74176; 80048; 80051; 80053; 81001; 82330; 82805; 83605; 83880; 84484; 85025; 87040; 87070; 87077; 87086; 87150; 87186; 87205; 87486; 87581; 87633; 93005; 94640; 94660; 94760; 96365; 96372; 96376; 99291; J0696; J1100; J1650; J1940; J1956; J2270; J2405; J3490; J7512; Q0144; Q9967

== ENCOUNTER 2023-05-10 09:34 | Emergency (ER) | payer MEDICARE, SELFPAY ==
[2023-05-10 09:54] VITALS: BP 164/78; PULSE 80; RESP 14; TEMP 36.7; O2SAT 95; BMI 36.1
[2023-05-10 10:30] VITALS: BP 144/68; PULSE 68; RESP 16; O2SAT 95
--- NOTE | 2023-05-10 10:38 | XR_ITS ---
WS: [id number] Exam: XR chest 1V portable [id number] Date/Time of Exam: 05/10/2023 10:40 AM Reason For Exam: dyspnea/cough Comparison 04/15/2023. The lungs are clear. No acute infiltrates. Mild cardiac enlargement unchanged. No pleural effusions. Plaque atelectasis in the RIGHT lower lung zone. Bony structures are intact. Chronic eventration of t he RIGHT diaphragm. IMPRESSION: 1. Plaque atelectasis in the RIGHT lower lung zone. 2. Mild cardiac enlargement unchanged. No acute process.
--- NOTE | 2023-05-10 10:38 | CT_ITS ---
WS: [id number] CT CERVICAL TRAUMA TECHNIQUE: Noncontrast CT of the cervical spine with coronal and sagittal reformatted images. CLINICAL INFORMATION: traumna COMPARISON: 04/15/2023 DLP: 2200.[address] scans at [facility] use at least one of these dose optimization techniques: automated e xposure control; mA and/or kV adjustment per patient size (includes targeted exams where dose is matc hed to clinical indication); or iterative reconstruction. FINDINGS: Straightening with slight reversal of the normal cervical lordosis. Moderate spondylitic changes. Sli ght anterolisthesis C3 on C4. Disc space narrowing worse at C4-C5 and C5-C6. Mild central canal steno sis C3-C4 C4-C5 and C5-C6 appears unchanged. Stable RIGHT thyroid nodule measuring 2.3 cm. Normal prevertebral soft tissues. Mastoids air cells are well aerated. IMPRESSION: 1. No evidence of acute fracture or dislocation. 2. Moderate spondylitic changes
--- NOTE | 2023-05-10 10:39 | CT_ITS ---
WS: [id number] CT HEAD TECHNIQUE: Noncontrast CT of the head obtained from the skullbase to the vertex. CLINICAL INFORMATION: trauma COMPARISON: 04/15/2023 DLP: 2200.[address] scans at [facility] use at least one of these dose optimization techniques: automated e xposure control; mA and/or kV adjustment per patient size (includes targeted exams where dose is matc hed to clinical indication); or iterative reconstruction. FINDINGS: No evidence of intracranial hemorrhage or mass effect. Ventricular system and basal cisterns are tello nt. Mild small vessel changes with mild parenchymal volume loss. No extra-axial fluid collections. No evidence of mass or mass effect. Diffuse subcutaneous edema and hematoma involving the frontal scalp and anterior RIGHT greater than L EFT facial soft tissues. Periorbital edema and hematoma. Paranasal sinuses and mastoid air cells are well aerated. .Normal visualized soft tissues. IMPRESSION: 1. No evidence of intracranial hemorrhage or mass effect. 2. Diffuse frontal scalp and anterior facial edema and subcutaneous hematoma. Periorbital edema and hematoma. 3. No acute intracranial findings.
--- NOTE | 2023-05-10 10:40 | ECG_ITS ---
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 Measurements Intervals [place] Rate: 71 P: 61 WV: 165 QRS: 269 QRSD: 150 T: -1 QT: 433 QTc: 473 Interpretive Statements SINUS RHYTHM WITH FREQUENT SUPRAVENTRICULAR PREMATURE COMPLEXES RIGHT AXIS DEVIATION [QRS AXIS > 100] RIGHT BUNDLE BRANCH BLOCK [120+ ms QRS DURATION, UPRIGHT V1, 40+ ms S IN I/aVL/V4/V5/V6] POSSIBLE ANTERIOR MYOCARDIAL INFARCTION , OF INDETERMINATE AGE [30 ms Q WAVE IN V3/V4, OR R < 0.2 mV IN V4] Compared to ECG 04/15/2023 21:19:54 No significant changes Electronically Signed On 05-10-2023 18:33:57 GLOBAL ENGINEERING MANAGER by Yanet Lunsford M.D. [email or web address]
--- NOTE | 2023-05-10 10:54 | ED_ITS ---
HPI - Altered Mental Status General: Chief Complaint: Altered Mental Status Stated Complaint: Fell Time Seen by Provider: 05/10/23 10:38 PFSH ED PFSH: Medical History (Updated 04/17/23 @ 14:01 by Pamela Ray MD) Prostate cancer Pulmonary embolism Surgical History H/O prostatectomy History of umbilical hernia repair Hx of colonoscopy May 2022, polyps found Status post colonoscopy Social History Smoking and tobacco/nicotine status: current some day tobacco/nicotine user Alcohol intake: former Marital status: Single Current occupational status: retired Course Vital Signs: Vital signs: Vital Signs Temperature 98.0 F 05/10/23 09:54 Pulse Rate 68 05/10/23 10:30 Respiratory Rate 16 05/10/23 10:30 Blood Pressure 144/68 05/10/23 10:30 Pulse Oximetry 95 05/10/23 10:30 Oxygen Delivery Me thod Room Air 05/10/23 09:54 MDM - Altered Mental Status Medical Records I reviewed the patient's medical records. Lab Data I reviewed the patient's lab results. 05/10/23 10:47 05/10/23 10:47 Discharge Plan Discharge Condition: Stable Prescriptions: No Action aspirin 81 mg Tablet,Delayed Release (Dr/Ec) 81 mg PO QAM acetaminophen 500 mg Tablet 1,000 mg PO Q6H PRN (Reason: Pain) albuterol sulfate 90 mcg/actuation HFA aerosol inhaler 2 puff INHALATION Q6H PRN (Reason: Shortness Of Breath) amlodipine 10 mg tablet 10 mg PO DAILY Eliquis 5 mg Tablet 5 mg PO BID@0900,2100 30 Days Qty: 60 0RF pantoprazole 40 mg Tablet,Delayed Release (Dr/Ec) 40 mg PO DAILY 30 Days Qty: 30 0RF bumetanide 1 mg Tablet 2 mg PO BID 30 Days Qty: 120 0RF docusate sodium 100 mg Capsule 100 mg PO BID 30 Days Qty: 60 0RF Referrals: Ed Branch [Primary Care Provider] - Patient Instructions: Altered Mental Status (ED), Alcohol Intoxication (ED), Benzodiazepine Use Disorder (ED), Concussion (ED), Dementia (ED), Subarachnoid Hemorrhage (GEN), Hyponatremia (ED), Non-diabetic Hypoglycemia (ED), Hypoglycemia in a Person with Diabetes (ED) Coding Level of Care Code ED Programming Director for Sharmin Stewart
[2023-05-10 10:58] LABS: Basophils # 0.1 10^3/uL (0.0-0.1); Basophils % 0.7 %; Eosinophils # 0.2 10^3/uL (0.0-0.8); Eosinophils % 2.2 %; Hematocrit 47.1 % (37-53); Lymphocytes # 1.6 10^3/uL (0.8-4.8); Lymphocytes % 19.1 %; Mean Corpuscular HGB Conc 32.5 g/dL (30-55); Mean Corpuscular Volume 95.3 fl (82-101); Mean Platelet Volume 8.4 fL (7.4-10.4); Monocytes # 0.7 10^3/uL (0.2-0.9); Monocytes % 7.9 %; Neutrophils # 5.97 10^3/uL (1.8-7.7); Neutrophils % 69.7 %; Nucleated Red Blood Cells % 0 %; Platelet Count 247 10^3/cmm (157-399); Red Blood Count 4.94 10^6/uL (3.85-5.65); Red Cell Distribution Width 12.2 % (12.1-15.1); White Blood Count 8.57 10^3/uL (3.29-11.43)
--- NOTE | 2023-05-10 10:58 | CT_ITS ---
WS: [id number] CT FACIAL BONES TECHNIQUE: Noncontrast facial bones with coronal and sagittal reformatted images. CLINICAL INFORMATION: trauma COMPARISON: None. DLP: 2200.[address] scans at [facility] use at least one of these dose optimization techniques: automated e xposure control; mA and/or kV adjustment per patient size (includes targeted exams where dose is matc hed to clinical indication); or iterative reconstruction. FINDINGS: Diffuse subcutaneous scalp edema and hematoma overlying the frontal calvarium and anterior RIGHT grea ter than LEFT facial soft tissues with periorbital edema and hematoma. Paranasal sinuses and mastoid air cells are well aerated. Normal posterior nasopharynx. Normal parapharyngeal fat. Mild mucosal thickening in the frontal sinuses. Normal pterygoid plates. Normal anterior nasal bones. Normal zygoma. No evidence of mandibular fracture or dislocation. Normal orbits. Normal lamina papyr acea. IMPRESSION: 1. No acute facial fractures. 2. Diffuse subcutaneous edema and hematoma described above.
--- NOTE | 2023-05-10 10:58 | ED_ITS ---
HPI - Fall General: Chief Complaint: Altered Mental Status Stated Complaint: Fell Time Seen by Provider: 05/10/23 10:38 Source: patient Mode of arrival: ambulatory History of Present Illness: 68-year-old male presents to the emergency room after a fall he felt 4 days ago and then again 3 days ago ( and Wednesday. He has bruising on his forehead tracking down to his eyes and over the zygomatic arches there is no loss of c onsciousness. He fell asleep when he fell out of a wheelchair and pitched forward. He has not had any nausea or vomiting he denies any chest pain or abdominal pain does have some discomfort in his neck. He is on Eliquis. complaint: fall Onset (ago): day(s) (4) Fall from: chair Fall witnessed: yes, by family Place fall occurred: home Location of injury: face and neck Associated symptoms-after fall: Reports neck pain; Denies abdominal pain or chest pain Review of Systems Const: Denies: fever(s) or chills Card: Denies: chest pain Resp: Denies: dyspnea GI: Denies: abdominal pain : Denies: dysuria, urinary frequency or urinary urgency Musc: Reports: neck pain; Denies: back pain Skin/Breast: Denies: rash PFSH ED PFSH: Medical History (Updated 05/10/23 @ 12:27 by Juancarlos Navarro DO) Prostate cancer Pulmonary embolism Surgical History H/O prostatectomy History of umbilical hernia repair Hx of colonoscopy May 2022, polyps found Status post colonoscopy Social History Smoking and tobacco/nicotine status: current some day tobacco/nicotine user Alcohol intake: former Marital status: Single Current occupational status: retired Physical Exam 2 Const: GENERAL APPEARANCE: cooperative and comfortable ORIENTATION/CONSCIOUSNESS: Yes awake, Yes oriented to person, Yes oriented to place and Yes oriented to time HENMT: COMMON NORMALS: normocephalic and hearing grossly normal bilaterally HEAD & SCALP: normocephalic OTHER: Large amount of swelling and significant hematoma on the forehead the eyelids are essentially swollen completely shut secondary to hematoma tracking down the face there is also some swelling in the back of zygomatic arch bilaterally with the right being greater than the left. There is a small abrasion on the right side of the forehead is not full-thickness no active bleeding. Resp: COMMON NORMALS: normal respiratory effort, No retractions, No use of acc essory muscles and clear to auscultation bilaterally AUSCULTATION: clear to auscultation bilaterally Cardio: COMMON NORMALS: regular rate, regular rhythm and No murmurs present (Cardio) RATE: regular rate RHYTHM: regular rhythm GI: COMMON NORMALS: Soft to palpation and No hepatosplenomegaly present AUSCULTATION: Yes normoactive bowel sounds PALPATION: Yes Soft to palpation, No Tenderness to palpation present (GI), No Guarding due to palpation present (G I) and Yes No hepatosplenomegaly present Extremity: COMMON NORMALS: normal to inspection, capillary refill normal, no clubbing, cyanosis or edema, no calf tenderness and no pedal edema Neuro: SENSORIUM/ORIENTATION: Yes oriented to person, Yes oriented to place and Yes oriented to time Skin: COMMON NORMALS: no rashes or lesions noted GENERAL SKIN EXAM: no rashes or lesions noted Course Vital Signs: Vital signs: Vital Signs Temperature 98.0 F 05/10/23 09:54 Pulse Rate 78 05/10/23 12:00 Respiratory Rate 16 05/10/23 12:00 Blood Pressure 151/91 05/10/23 12:00 Pulse Oximetry 93 05/10/23 12:00 Oxygen Delivery Me thod Room Air 05/10/23 12:00 MDM - Fall Medical Decision Making CT facial bones head and neck all negative. Patient awake and alert. He does have significant numbness ecchymosis and swelling around the eyes. Apply ice as needed. Follow-up with primary care return for further problems reviewed findings with patient and his son who are at the bedside. Degree of hematoma adversely affected by the patient being on [facility] Medical Records I reviewed the patient's medical records. Lab Data I reviewed the patient's lab results. 05/10/23 10:47 05/10/23 10:47 Laboratory Results WBC 8.57 10^3/uL (3.29-11.43) 05/10/23 10:47 RBC 4.94 10^6/uL (3.85-5.65) 05/10/23 10:47 Hgb 15.30 g/dL (11.27-16.99) 05/10/23 10:47 Hct 47.1 % (37-53) 05/10/23 10:47 MCV 95.3 fl (82-101) 05/10/23 10:47 MCH 31.0 pg (27-33) 05/10/23 10:47 MCHC 32.5 g/dL (30-55) 05/10/23 10:47 RDW 12.2 % (12.1-15.1) 05/10/23 10:47 Plt Count 247 10^3/cmm (157-399) 05/10/23 10:47 MPV 8.4 fL (7.4-10.4) 05/10/23 10:47 Neut % (Auto) 69.7 % 05/10/23 10:47 Lymph % (Auto) 19.1 % 05/10/23 10:47 Wright % (Auto) 7.9 % 05/10/23 10:47 Eos % (Auto) 2.2 % 05/10/23 10:47 Baso % (Auto) 0.7 % 05/10/23 10:47 Neut # (Auto) 5.97 10^3/uL (1.8-7.7) 05/10/23 10:47 Lymph # (Auto) 1.6 10^3/uL (0.8-4.8) 05/10/23 10:47 Wright # (Auto) 0.7 10^3/uL (0.2-0.9) 05/10/23 10:47 Eos # (Auto) 0.2 10^3/uL (0.0-0.8) 05/10/23 10:47 Baso # (Auto) 0.1 10^3/uL (0.0-0.1) 05/10/23 10:47 Nucleated RBC % (auto) 0 % 05/10/23 10:47 Nucleated RBCs # 0.0 /100WBC 05/10/23 10:47 Sodium 144 mmol/L (136-145) 05/10/23 10:47 Potassium 3.4 mmol/L (3.5-5.1) L 05/10/23 10:47 Chloride 101 mmol/L (98-107) 05/10/23 10:47 Carbon Dioxide 35 mmol/L (22-29) H 05/10/23 10:47 Anion Gap 11.4 (5-19) 05/10/23 10:47 BUN 22 mg/dL (8-23) 05/10/23 10:47 Creatinine 0.6 mg/dL (0.7-1.2) L 05/10/23 10:47 GFR Calculation 134.8 mL/min (90-130) H 05/10/23 10:47 Glucose 91 mg/dL (65-115) 05/10/23 10:47 Calculated Osmolality 301 mOsm/kg (285-295) H 05/10/23 10:47 Lactic Acid 1.0 mmol/L (0.5-2.2) 05/10/23 10:47 Calcium 9.5 mg/dL (8.5-10.5) 05/10/23 10:47 Total Bilirubin 1.2 mg/dL (0.15-1.2) 05/10/23 10:47 AST 12 U/L (0-40) 05/10/23 10:47 ALT 13 U/L (0-41) 05/10/23 10:47 Alkaline Phosphatase 97 U/L (40-130) 05/10/23 10:47 Creatine Kinase 55 U/L (39-308) 05/10/23 10:47 Troponin T Baseline 69 ng/L (0-15) H 05/10/23 10:47 Total Protein 7.2 g/dL (6.6-8.7) 05/10/23 10:47 Albumin 4.0 g/dL (3.5-5.2) 05/10/23 10:47 Globulin 3.2 g/dL (1.3-4.6) 05/10/23 10:47 All radiology interpretation(s) finalized by discharge Discharge Plan Discharge Patient Disposition: Home Clinical Impression: Facial hematoma, Fall Condition: Stable Prescriptions: No Action aspirin 81 mg Tablet,Delayed Release (Dr/Ec) 81 mg PO QAM acetaminophen 500 mg Tablet 1,000 mg PO Q6H PRN (Reason: Pain) albuterol sulfate 90 mcg/actuation HFA aerosol inhaler 2 puff INHALATION Q6H PRN (Reason: Shortness Of Breath) amlodipine 10 mg tablet 10 mg PO DAILY Eliquis 5 mg Tablet 5 mg PO BID@0900,2100 30 Days Qty: 60 0RF pantoprazole 40 mg Tablet,Delayed Release (Dr/Ec) 40 mg PO DAILY 30 Days Qty: 30 0RF bumetanide 1 mg Tablet 2 mg PO BID 30 Days Qty: 120 0RF docusate sodium 100 mg Capsule 100 mg PO BID 30 Days Qty: 60 0RF Discharge Orders: Discharge ED (Routine); Ordered 05/10/23 Ordered By: Juancarlos Navarro Referrals: Ed Branch [Primary Care Provider] - Patient Instructions: Opioid Safety, Pain Management Activity Restrictions/Additional Instructions: Thank you for choosing [facility] for your healthcare needs today. Please realize this is an emergency room and that we are providing you with a medical screening exam and this may not be complete and all inclusive of all the testing and or work up that you may need to determine your ailment or severity of your illness. It is very important that you follow up as instructed or that you return to the Emergency Department should you have concerns or if your condition changes or worsens in any way. You are seen today after a fall with large amount of bruising in the face from the fall. This is typical. There is no evidence of fracture or intracranial bleed or neck injury on the CTs. Follow-up with your primary care doctor apply ice to the areas of swelling. Coding Level of Care Code ED Administrative Assistant Coordinator for Sharmin Stewart
[2023-05-10 11:00] VITALS: BP 141/79; PULSE 75; RESP 16; O2SAT 95
[2023-05-10 11:12] LABS: Alanine Aminotransferase 13 U/L (0-41); Alkaline Phosphatase 97 U/L (40-130); Anion Gap 11.4 (5-19); Aspartate Amino Transferase 12 U/L (0-40); Blood Urea Nitrogen 22 mg/dL (8-23); Calcium 9.5 mg/dL (8.5-10.5); Carbon Dioxide 35 mmol/L (22-29); Chloride 101 mmol/L (98-107); Creatine Phosphokinase 55 U/L (39-308); Globulin 3.2 g/dL (1.3-4.6); Glomerular Filtration Rate 134.8 mL/min (90-130); Glucose 91 mg/dL (65-115); Osmolality Calculated 301 mOsm/kg (285-295); Potassium 3.4 mmol/L (3.5-5.1); Sodium 144 mmol/L (136-145); Total Bilirubin 1.2 mg/dL (0.15-1.2); Total Protein 7.2 g/dL (6.6-8.7)
[2023-05-10 11:15] LABS: Creatinine Clr Calc Pharmacy 111.6064; Troponin(5th) Baseline 69 ng/L (0-15)
[2023-05-10 12:00] VITALS: BP 151/91; PULSE 78; RESP 16; O2SAT 93
[2023-05-10 12:50] LABS: Bilirubin Urine 1+ (Negative); Blood Urine 2+ (Negative); Glucose Urine UA Norm (Normal); Ketones Urine 1+ (Negative); Nitrate Urine Negative (Negative); Protein Urine 1+ (Negative); Urine Appearance Cloudy (CLEAR); Urine Color Dark Yellow (Yellow); Urobilinogen Urine 8 mg/dL (Negative); pH Urine 5 (5-7)
[2023-05-10 12:51] LABS: Add Urine Culture? Yes; Add Urine Microscopic? YES; Amorphous Sediment Urine 2+ /hpf; Bacteria Urine 2+ /hpf; Leukocyte Esterase Urine Negative (Negative); Mucus Urine 2+ /hpf; Squamous Epithelial Cell Urine 0-4 /hpf (0-5); WBC Urine 0-4 /hpf (0-5)
== END 2023-05-10 12:41 | disposition home or self-care (01) ==
PROVIDERS: Emergency Provider Family Medicine; PCP Family Medicine
DX: S00.83XA Contusion of other part of head, initial encounter (principal); S00.81XA Abrasion of other part of head, initial encounter; Z79.82 Long term (current) use of aspirin; Z79.01 Long term (current) use of anticoagulants; Z85.46 Personal history of malignant neoplasm of prostate; Z72.0 Tobacco use; W05.0XXA Fall from non-moving wheelchair, initial encounter
CPT/HCPCS: 36415; 70450; 70486; 71045; 72125; 80053; 81001; 82550; 83605; 84484; 85025; 87086; 93005; 99285

== ENCOUNTER 2023-05-23 15:13 | Inpatient (IN) | payer MEDICARE, SELFPAY ==
[2023-05-23] VITALS (10 sets, daily range): BP systolic 111–150; BP diastolic 66–101; PULSE 69–101; RESP 16–22; TEMP 36.9; O2SAT 90–98; BMI 34.0
--- NOTE | 2023-05-23 15:54 | CTR_ITS ---
PROCEDURE INFORMATION: Exam: CT Cervical Spine Without Contrast Exam date and time: 05/23/2023 4:01 PM Age: 68 years old Clinical indication: Injury or trauma; Fall; Blunt trauma TECHNIQUE: Imaging protocol: Computed tomography of the cervical spine without contrast. Radiation optimization: All CT scans at this facility use at least one of these dose optimization techniques: automated exposure control; mA and/or kV adjustment per patient size (includes targeted exams where dose is matched to clinical indication); or iterative reconstruction. REPORTING DATA: Count of CT and Cardiac NM exams in prior 12 months: This patient has received 11 known CTs and 0 known cardiac nuclear medicine studies in the 12 months prior to the current study. COMPARISON: CT cervical spin wo con* [id number] 05/10/2023 11:22 AM RADIATION DOSE METRICS: Total DLP (mGy-cm): 286.5 FINDINGS: Bones/joints: Mild reversal of the normal cervical lordosis. Slight anterolisthesis of C3 on C4. Disc space narrowing at C4-C5. Anterior spurring C2 through C6. Anatomic alignment. No fracture, lytic, or sclerotic bone lesion. Lungs: Lung apices are normal. Soft tissues: Unremarkable. CT/CT cervical spin wo con* [id number] IMPRESSION: 1. No acute findings. 2. Degenerative changes.
--- NOTE | 2023-05-23 15:54 | CTR_ITS ---
PROCEDURE INFORMATION: Exam: CT Maxillofacial Without Contrast Exam date and time: 05/23/2023 4:01 PM Age: 68 years old Clinical indication: Injury or trauma; Fall; Blunt trauma (contusions or hematomas); Head/scalp and orbit/periorbital; Loss of consciousness not known; Bilateral TECHNIQUE: Imaging protocol: Computed tomography of the face without contrast. Radiation optimization: All CT scans at this facility use at least one of these dose optimization techniques: automated exposure control; mA and/or kV adjustment per patient size (includes targeted exams where dose is matched to clinical indication); or iterative reconstruction. REPORTING DATA: Count of CT and Cardiac NM exams in prior 12 months: This patient has received 11 known CTs and 0 known cardiac nuclear medicine studies in the 12 months prior to the current study. COMPARISON: CT head wo con* [id number] 05/23/2023 4:01 PM RADIATION DOSE METRICS: Total DLP (mGy-cm): 790.4 FINDINGS: Orbital cavities: Orbits are normal. Globes are unremarkable. Bones/joints: No fracture. Paranasal sinuses: Mild mucosal thickening of the ethmoid air cells. Mild frontal sinus mucosal thickening. Soft tissues: Large right frontal scalp hematoma. Other findings: No retro bulbar gas. No inter cavitary mass. CT/CT facial bones wo con* [id number] IMPRESSION: Soft tissue swelling. No acute osseous abnormality.
--- NOTE | 2023-05-23 15:54 | CTR_ITS ---
PROCEDURE INFORMATION: Exam: CT Head Without Contrast Exam date and time: 05/23/2023 4:01 PM Age: 68 years old Clinical indication: Injury or trauma; Fall; Blunt trauma (contusions or hematomas); Additional info: Fall with head injury TECHNIQUE: Imaging protocol: Computed tomography of the head without contrast. Radiation optimization: All CT scans at this facility use at least one of these dose optimization techniques: automated exposure control; mA and/or kV adjustment per patient size (includes targeted exams where dose is matched to clinical indication); or iterative reconstruction. REPORTING DATA: Count of CT and Cardiac NM exams in prior 12 months: This patient has received 11 known CTs and 0 known cardiac nuclear medicine studies in the 12 months prior to the current study. COMPARISON: CT head wo con* [id number] 05/10/2023 11:22 AM RADIATION DOSE METRICS: Total DLP (mGy-cm): 997.4 FINDINGS: Brain: Normal. No hemorrhage. Unremarkable white matter. No mass effect. Cerebral ventricles: No ventriculomegaly. Paranasal sinuses: Visualized sinuses are unremarkable. No fluid levels. Mastoid air cells: Visualized mastoid air cells are well aerated. Bones/joints: Unremarkable. No acute fracture. Soft tissues: Large right frontal scalp hematoma. Swelling around the orbit and face on that right side as well. CT/CT head wo con* [id number] IMPRESSION: No acute intracranial abnormality.
--- NOTE | 2023-05-23 15:57 | ED_ITS ---
HPI - Fall General: Chief Complaint: Fall Stated Complaint: RIGHT EYE/LOW BACK PAIN S/P FALL Time Seen by Provider: 05/23/23 15:29 Source: patient Mode of arrival: EMS Limitations: no limitations History of Present Illness: This 68-year-old male who lives by himself was brought in by a neighbor for nicci hanna following a fall this morning. He fell on May 08 and sustained facial injuries. He was evaluated at the time with no obvious fractures. This morning, he slipped out of his recliner, fell forward and hit his face. He has underlying bruise from his fall on May 08. No loss of consciousness was reported. Patient denies any other additional injury. He has a history of COPD and uses oxygen on a PRN basis. Associated symptoms-after fall: Denies chest pain, headache(s), lightheadedness or neck pain Review of Systems Const: Denies: chills, body aches or change in appetite Eyes: Denies: change in vision or eye discharge ENMT: Reports: other (Swelling and tenderness around bridge of the nose. Bruising on forehead); Denies: dental pain or nasal discharge Card: Denies: chest pain or lightheadedness : Denies: dysuria Musc: Denies: neck pain or back pain Neuro: Denies: headache(s) or weakness in extremities Psych: Denies: depression Kota/Lymph: Denies: easy bruising All/Imm: Denies: urticaria, tongue swelling or facial swelling PFSH ED PFSH: Medical History Prostate cancer Pulmonary embolism Surgical History H/O prostatectomy History of umbilical hernia repair Hx of colonoscopy May 2022, polyps found Status post colonoscopy Social History Smoking and tobacco/nicotine status: current some day tobacco/nicotine user Alcohol intake: former Marital status: Single Current occupational status: retired Physical Exam Const: COMMON NORMALS: patient oriented x3 and no limitations GENERAL APPEARANCE: lethargic ORIENTATION/CONSCIOUSNESS: Yes lethargic OTHER: sleepy HENMT: COMMON NORMALS: normocephalic HEAD & SCALP: normocephalic HEAD IMAGES: 1. Hematoma. Tender to palpation. 2. Old bruise 3. Old bruise OTHER: Patient has healing bruise that is widespread around the face. There is a hematoma on the right side of the forehead. It is tender to palpation. There are no open wounds. Eye: COMMON NORMALS: EOMs intact bilaterally Neck/C-Spine: COMMON NORMALS: full ROM and supple Chest: COMMONS NORMALS: normal inspection of the chest Resp: COMMON NORMALS: No retractions and No use of accessory muscles EFFORT & INSPECTION: Yes tachypneic OTHER: Diminished breath sounds at the bases. Cardio: COMMON NORMALS: regular rate, regular rhythm and No murmurs present (Cardio) RATE: regular rate RHYTHM: regular rhythm GI: COMMON NORMALS: Normal to inspection, nondistended, normoactive bowel sounds present and non-tender : COMMON NORMALS: Yes no CVA tenderness BLADDER/KIDNEY EXAM: Yes no CVA tenderness Back/Pelvis: COMMON NORMALS: no CVA tenderness and no thoracic nor lumbar tenderness Extremity: GENERAL: Yes normal exam except as noted Neuro: COMMON NORMALS: patient oriented x3 and no focal motor deficits SE NSORIUM/ORIENTATION: Yes lethargic Psych: COMMON NORMALS: mental status grossly normal and cooperative Course Vital Signs: Vital signs: Vital Signs Temperature 98.4 F 05/23/23 15:16 Pulse Rate 88 05/23/23 19:48 Respiratory Rate 22 H 05/23/23 19:45 Blood Pressure 147/86 05/23/23 18:57 Pulse Oximetry 93 05/23/23 19:48 Oxygen Delivery Me thod Nasal Cannula 05/23/23 19:45 Oxygen Flow Rate 2 05/23/23 19:45 Fraction of Inspir ed Oxygen 50 05/23/23 19:48 MDM - Fall Medical Decision Making Medical decision making: History as above. Patient was primarily brought in because he had a fall at home. However on evaluation, he was found to be hypoxic on room air. After being placed on 2 L of oxygen, he continued to be hypoxic with oxygen saturation in the upper 80s. ABG revealed respiratory acidosis with pH of 7.3, pCO2 of 76.7 and pO2 of 65. In addition, patient appears sleepy and neighbor confirms that patient been sleeping for most of the time. Imaging studies are negative for any acute injury. Breathing treatment and IV steroids given. He will be admitted for further evaluation and management. Case discussed with Dr. Pascual who accepted patient for admission. Lab Data 05/23/23 18:37 05/23/23 18:37 Radiology Impressions Cervical Spine CT 05/23/23 15:54 IMPRESSION: 1. No acute findings. 2. Degenerative changes. Face CT 05/23/23 15:54 IMPRESSION: Soft tissue swelling. No acute osseous abnormality. Head CT 05/23/23 15:54 IMPRESSION: No acute intracranial abnormality. Chest X-Ray 05/23/23 18:20 IMPRESSION: No focal consolidation. Laboratory Results WBC 11.84 10^3/uL (3.29-11.43) H 05/23/23 18:37 RBC 5.19 10^6/uL (3.85-5.65) 05/23/23 18:37 Hgb 16.00 g/dL (11.27-16.99) 05/23/23 18:37 Hct 48.4 % (37-53) 05/23/23 18:37 MCV 93.3 fl (82-101) 05/23/23 18:37 MCH 30.8 pg (27-33) 05/23/23 18:37 MCHC 33.1 g/dL (30-55) 05/23/23 18:37 RDW 12.3 % (12.1-15.1) 05/23/23 18:37 Plt Count 345 10^3/cmm (157-399) 05/23/23 18:37 MPV 8.6 fL (7.4-10.4) 05/23/23 18:37 Neut % (Auto) 75.3 % 05/23/23 18:37 Lymph % (Auto) 12.2 % 05/23/23 18:37 Kings % (Auto) 10.7 % 05/23/23 18:37 Eos % (Auto) 0.6 % 05/23/23 18:37 Baso % (Auto) 0.8 % 05/23/23 18:37 Neut # (Auto) 8.92 10^3/uL (1.8-7.7) H 05/23/23 18:37 Lymph # (Auto) 1.4 10^3/uL (0.8-4.8) 05/23/23 18:37 Kings # (Auto) 1.3 10^3/uL (0.2-0.9) H 05/23/23 18:37 Eos # (Auto) 0.1 10^3/uL (0.0-0.8) 05/23/23 18:37 Baso # (Auto) 0.1 10^3/uL (0.0-0.1) 05/23/23 18:37 Nucleated RBC % (auto) 0 % 05/23/23 18:37 Nucleated RBCs # 0.0 /100WBC 05/23/23 18:37 Specimen Type Arterial 05/23/23 18:32 Sample Site Radial, right 05/23/23 18:32 ABG pH 7.30 (7.35-7.45) L 05/23/23 18:32 ABG pCO2 76.7 mmHg (35-45) H* 05/23/23 18:32 ABG pO2 65.0 mmHg (80.0-100.0) L 05/23/23 18:32 ABG PO2/FiO2 Ratio 0 05/23/23 18:32 ABG HCO3 37.2 mmol/L (22-26) H 05/23/23 18:32 ABG Base Excess 7.1 mmol/L (-2.0-2.0) H 05/23/23 18:32 Toro Test Pos 05/23/23 18:32 Hematocrit 49.3 % (42-52) 05/23/23 18:32 O2 Delivery Device Nc 05/23/23 18:32 O2 Liters/Min 2.0 % 05/23/23 18:32 FiO2 28.0 % 05/23/23 18:32 Flight Manager ID Amh 05/23/23 18:32 Sodium 143 mmol/L (136-145) 05/23/23 18:37 Potassium 2.6 mmol/L (3.5-5.1) L* 05/23/23 18:37 Chloride 96 mmol/L (98-107) L 05/23/23 18:37 Carbon Dioxide 33 mmol/L (22-29) H 05/23/23 18:37 Anion Gap 16.6 (5-19) 05/23/23 18:37 BUN 19 mg/dL (8-23) 05/23/23 18:37 Creatinine 0.7 mg/dL (0.7-1.2) 05/23/23 18:37 GFR Calculation 112.8 mL/min (90-130) 05/23/23 18:37 Glucose 108 mg/dL (65-115) 05/23/23 18:37 Calculated Osmolality 299 mOsm/kg (285-295) H 05/23/23 18:37 Calcium 9.3 mg/dL (8.5-10.5) 05/23/23 18:37 Total Bilirubin 2.0 mg/dL (0.15-1.2) H 05/23/23 18:37 AST 97 U/L (0-40) H 05/23/23 18:37 ALT 35 U/L (0-41) 05/23/23 18:37 Alkaline Phosphatase 85 U/L (40-130) 05/23/23 18:37 Total Protein 7.3 g/dL (6.6-8.7) 05/23/23 18:37 Albumin 3.9 g/dL (3.5-5.2) 05/23/23 18:37 Globulin 3.4 g/dL (1.3-4.6) 05/23/23 18:37 All radiology interpretation(s) finalized by discharge EKG Data EKG 1: Interpretation: Sinus rhythm with occasional PVCs, rate of 91, right axis deviation, right bundle branch block, no STEMI. Discharge Plan Discharge Patient Disposition: Admitted As Inpatient Clinical Impression: Acute on chronic respiratory failure with hypoxia and hypercapnia, Contusion of face, Hematoma of frontal scalp, Hypokalemia Condition: Stable Coding Level of Care Code ED Finishing Machine Operator Automatic for Sharmin Stewart
--- NOTE | 2023-05-23 18:20 | XRR_ITS ---
PROCEDURE INFORMATION: Exam: XR Chest Exam date and time: 05/23/2023 6:28 PM Age: 68 years old Clinical indication: Shortness of breath; Patient HX: Hypoxia TECHNIQUE: Imaging protocol: Radiologic exam of the chest. Views: 1 view. COMPARISON: CR XR chest 1V portable [id number] 05/10/2023 10:57 AM FINDINGS: Lungs: Lungs are hypoinflated, somewhat limiting evaluation. No focal consolidation. Pleural spaces: No large pleural effusion. No pneumothorax. Heart/Mediastinum: Mild cardiomegaly, unchanged. Bones/joints: No acute abnormality. XR/XR chest 1V portable [id number] IMPRESSION: No focal consolidation.
[2023-05-23 18:42] LABS: Basophils # 0.1 10^3/uL (0.0-0.1); Basophils % 0.8 %; Eosinophils # 0.1 10^3/uL (0.0-0.8); Eosinophils % 0.6 %; Hematocrit 48.4 % (37-53); Lymphocytes # 1.4 10^3/uL (0.8-4.8); Lymphocytes % 12.2 %; Mean Corpuscular HGB Conc 33.1 g/dL (30-55); Mean Corpuscular Hemoglobin 30.8 pg (27-33); Mean Corpuscular Volume 93.3 fl (82-101); Mean Platelet Volume 8.6 fL (7.4-10.4); Monocytes # 1.3 10^3/uL (0.2-0.9); Monocytes % 10.7 %; Neutrophils # 8.92 10^3/uL (1.8-7.7); Neutrophils % 75.3 %; Nucleated Red Blood Cells % 0 %; Platelet Count 345 10^3/cmm (157-399); Red Blood Count 5.19 10^6/uL (3.85-5.65); Red Cell Distribution Width 12.3 % (12.1-15.1); White Blood Count 11.84 10^3/uL (3.29-11.43)
[2023-05-23 18:43] LABS: Arterial Blood Gas Hematocrit 49.3 % (42-52); Base Excess ABG 7.1 mmol/L (-2.0-2.0); Blood Gas Allen Test Pos; Blood Gas Operator Identificat AMH; Blood Gas Sample Site Radial, right; Blood Gas Sample Type Arterial; HCO3 ABG 37.2 mmol/L (22-26); Oxygen Device NC; PO2 FiO2 Ratio Arterial Blood 0
[2023-05-23 18:45] LABS: ABG PCO2 76.7 mmHg (35-45)
[2023-05-23 19:03] LABS: Alanine Aminotransferase 35 U/L (0-41); Albumin Level 3.9 g/dL (3.5-5.2); Alkaline Phosphatase 85 U/L (40-130); Anion Gap 16.6 (5-19); Aspartate Amino Transferase 97 U/L (0-40); Blood Urea Nitrogen 19 mg/dL (8-23); Calcium 9.3 mg/dL (8.5-10.5); Carbon Dioxide 33 mmol/L (22-29); Chloride 96 mmol/L (98-107); Creatinine Clr Calc Pharmacy 108.1099; Globulin 3.4 g/dL (1.3-4.6); Glomerular Filtration Rate 112.8 mL/min (90-130); Glucose 108 mg/dL (65-115); Osmolality Calculated 299 mOsm/kg (285-295); Sodium 143 mmol/L (136-145); Total Protein 7.3 g/dL (6.6-8.7)
[2023-05-23 19:07] LABS: Potassium 2.6 mmol/L (3.5-5.1)
[2023-05-23] MEDS: potassium chloride premix 100 ML 50 MEQ IV (19:27)
--- NOTE | 2023-05-23 19:29 | ECG_ITS ---
[facility] Test Date: 2023-05-23 Pat Name: Satish Jones Department: Room: Gender: Male [employer] Magistrate: : [id number] Requested By: Shay Portillo Order Number: [id number] Myles MD: Honey Galvin M.D. Measurements Intervals [place] Rate: 91 P: 74 NC: 179 QRS: 246 QRSD: 160 T: 39 QT: 444 QTc: 546 Interpretive Statements SINUS RHYTHM WITH OCCASIONAL VENTRICULAR PREMATURE COMPLEXES RIGHT BUNDLE BRANCH BLOCK [120+ ms QRS DURATION, UPRIGHT V1, 40+ ms S IN I/aVL/V4/V5/V6] Compared to ECG 05/10/2023 10:40:04 Ventricular premature complex(es) now present Electronically Signed On 05-24-2023 9:16:04 INSTRUCTIONAL COACH by Honey Galvin M.D. [id number]
[2023-05-23] MEDS: methylPREDNISolone sod succ 125 mg/2 mL INJ IVP (19:30)
--- NOTE | 2023-05-23 19:34 | P.HP_ITS ---
Providers/Chief Complaint Primary Care Provider: Ed Branch Chief Complaint: RIGHT EYE/LOW BACK PAIN S/P FALL History of Present Illness Satish Jones is a 68 year old male with history of PE prostate cancer alcohol abuse, presented to the hospital with chief complaint recurrent falls, confusion lethargy. Patient has not complained of any chest pain no recent fever as per the neighbor who takes care of him patient has been getting worse for last 2 weeks, he has stopped taking Eliquis, he does smoke half a pack of cigarettes e very day. His last admission was roughly 1 month ago when he was admitted for CHF exacerbation required BiPAP he was given bowel regimen for his constipation he was given antibiotics for UTI Eliquis was resumed. Patient in the ER was diagnosed with acute hypoxic hypercapnic respite failure extremely confused, able to answer a few questions on BiPAP Patient asking what is wrong with him and how long he will stay in the hospital As per the neighbor his lymphedema of lower extremities seems to be getting better with compression wraps Neighbor at the bedside, patient is full code, he has a brother who lives in [place] who checks on him once a month Review of Systems General: Reports: ROS unobtainable due to medical condition Medications/Allergies Home Medications Medication Instructions Recorded Confirmed Last Taken Type acetaminophen 500 mg tablet 1,000 mg PO Q6H PRN Pain 01/04/23 05/23/23 Unknown History albuterol sulfate 90 mcg/actuation 2 puff inhalation Q6H PRN 01/04/23 05/23/23 Unknown History aerosol inhaler Shortness Of Breath aspirin 81 mg tablet,delayed 81 mg PO QAM 01/04/23 05/23/23 05/23/23 History release amlodipine 10 mg tablet 10 mg PO DAILY 04/15/23 05/23/23 05/23/23 History apixaban 5 mg tablet (Eliquis) 5 mg PO BID 05/23/23 05/23/23 05/23/23 History bumetanide 1 mg tablet 2 mg PO BID 05/23/23 05/23/23 05/23/23 History furosemide 40 mg tablet 40 mg PO BID 05/23/23 05/23/23 05/23/23 History pantoprazole 40 mg tablet,delayed 40 mg PO DAILY 05/23/23 05/23/23 05/23/23 History release Allergies Allergy/AdvReac Type Severity Reaction Status Date / Time No Known Allergies Allergy Verified 05/23/23 15:16 PFSH Acute PFSH: Medical History Prostate cancer Pulmonary embolism Surgical History H/O prostatectomy History of umbilical hernia repair Hx of colonoscopy May 2022, polyps found Status post colonoscopy Social History Smoking and tobacco/nicotine status: current some day tobacco/nicotine user Alcohol intake: former Marital status: Single Current occupational status: retired Vitals/I&O/Wt Last Vital Signs Temp 98.4 F 05/23/23 15:16 Pulse 101 H 05/23/23 18:57 Resp 19 H 05/23/23 15:16 BP 147/86 05/23/23 18:57 Pulse Ox 90 05/23/23 18:57 O2 Del Method Room Air 05/23/23 18:57 Weight last 48 hrs Weight 104.326 kg Physical Exam Narrative: Morbid obese male Lower extremity lymphedema Compression wraps Currently patient is on AVAPS pulling tidal volume around 600 respiratory rate 14, Able to answer few questions Able to follow some commands Multiple petechiae bruises all over his face No active fracture Bedside S1, S2 Hemodynamic stable Nontender distended abdomen Pupils are reactive to light, equal and symmetrical Data 05/23/23 18:37 05/23/23 18:37 A&P Assessment and plan (1) Contusion of face: (2) Hematoma of frontal scalp: (3) Hypokalemia: (4) Acute on chronic respiratory failure with hypoxia and hypercapnia: (5) Obstructive sleep apnea: (6) Lymphedema: (7) Sacral pressure ulcer: Qualifiers: Pressure injury stage: unspecified pressure injury stage Qualified Code(s): L89.159 - Pressure ulcer of sacral region, unspecified stage (8) Obesity, morbid: (9) Alcohol abuse: (10) COPD exacerbation: (11) CHF exacerbation: Plan 68-year-old male with recurrent falls, recurrent admissions Active smoker uses oxygen on as needed basis at home presented with recurrent falls confusion and lethargy Acute on chronic hypoxic hypercapnic respite failure Untreated sleep apnea? Undiagnosed COPD, patient is an active smoker, Patient may require BiPAP at the time of discharge because of his recurrent admissions and persistent hypoxic hypercapnic ABG findings It is prudent for him to get evaluation for BiPAP approval at the time of discharge Continue AVAPS at this point Repeat ABG Patient is improving clinically We will admit to ICU CHF exacerbation Check BNP Continue Bumex Place Jeffery catheter Reduced EF 45 to 48% Right ventricle dilation History of PE History of PE, Patient was discharged on Eliquis on last admission however stating that he has stopped using it Multiple petechiae bruises all over his face due to recurrent falls Not a good candidate to be on Eliquis in my opinion Alcohol abuse Continue thiamine folic acid Lives alone, brother checks on him once a month, neighbor takes care of him most of the time who is an EMT Patient is full code Cardiac diet History of lymphedema uses compression wraps Chest x-ray reviewed Most information taken from the neighbor who is at the bedside Previous records reviewed History of prostate cancer status post surgical intervention Attestations Medical Necessity Statement*: More than 2 midnights anticipated Diagnoses Contusion of face S00.83XA Hematoma of frontal scalp S00.03XA Hypokalemia E87.6 Acute on chronic respiratory failure with hypoxia and hypercapnia J96.21; J96.22 Obstructive sleep apnea G47.33 Lymphedema I89.0 Sacral pressure ulcer L89.159 Pressure injury stage: unspecified pressure injury stage Obesity, morbid E66.01 Alcohol abuse F10.10 COPD exacerbation J44.1 CHF exacerbation I50.9
[2023-05-23] MEDS: ipratropium-albuterol 3 mL Neb INHALATION (19:38)
[2023-05-23 21:15] LABS: NT Pro B Type Natriuretic Pept 166 pg/mL (0-125)
[2023-05-23 21:16] LABS: Alcohol Level < 10 mg/dL (0-10)
[2023-05-23 22:03] LABS: Estmated Average Glucose 120; Hemoglobin A1C 5.8 % (4.0-6.0)
[2023-05-23 23:05] LABS: ABG PH Result 7.31 (7.35-7.45); Arterial Blood Gas Hematocrit 48.9 % (42-52); Base Excess ABG 7.5 mmol/L (-2.0-2.0); Blood Gas Allen Test Pos; Blood Gas Sample Site Radial, right; Blood Gas Sample Type Arterial; HCO3 ABG 37.2 mmol/L (22-26); Oxygen Device BIPAP; PO2 FiO2 Ratio Arterial Blood 0
[2023-05-23 23:59] LABS: Vitamin B12 577 pg/mL (232-1245)
[2023-05-24] VITALS (17 sets, daily range): BP systolic 101–162; BP diastolic 64–98; PULSE 75–97; RESP 14–23; TEMP 37; O2SAT 91–100; BMI 34.0
[2023-05-24 04:32] LABS: Basophils % 0.3 %; Eosinophils % 0.1 %; Hematocrit 49.9 % (37-53); Lymphocytes # 0.7 10^3/uL (0.8-4.8); Lymphocytes % 7.8 %; Mean Corpuscular HGB Conc 32.9 g/dL (30-55); Mean Corpuscular Hemoglobin 30.7 pg (27-33); Mean Corpuscular Volume 93.3 fl (82-101); Mean Platelet Volume 8.7 fL (7.4-10.4); Monocytes # 0.1 10^3/uL (0.2-0.9); Neutrophils # 7.99 10^3/uL (1.8-7.7); Nucleated Red Blood Cells % 0 %; Platelet Count 373 10^3/cmm (157-399); Red Blood Count 5.35 10^6/uL (3.85-5.65); Red Cell Distribution Width 12.3 % (12.1-15.1); White Blood Count 8.88 10^3/uL (3.29-11.43)
[2023-05-24 04:59] LABS: Anion Gap 19.4 (5-19); Blood Urea Nitrogen 19 mg/dL (8-23); C Reactive Protein 73.2 mg/L (0.0-4.9); Calcium 9.5 mg/dL (8.5-10.5); Carbon Dioxide 30 mmol/L (22-29); Chloride 96 mmol/L (98-107); Creatinine Clr Calc Pharmacy 108.1099; Glomerular Filtration Rate 112.8 mL/min (90-130); Glucose 142 mg/dL (65-115); Magnesium 2.3 mg/dL (1.7-2.3); Osmolality Calculated 299 mOsm/kg (285-295); Phosphorus 4.8 mg/dL (2.5-4.5); Potassium 3.4 mmol/L (3.5-5.1); Sodium 142 mmol/L (136-145)
[2023-05-24] MEDS: methylPREDNISolone sod succ 40 mg/mL INJ IVP ×2 (07:05→17:46)
[2023-05-24] MEDS: pantoprazole DR 40 mg Tablet PO (09:20)
[2023-05-24] MEDS: bumetanide 1 mg Tablet 2 MG PO ×2 (09:20→17:44)
[2023-05-24] MEDS: amlodipine 10 mg Tablet PO (09:20)
[2023-05-24] MEDS: apixaban 5 mg Tablet PO (09:20)
[2023-05-24] MEDS: folic acid 1 mg Tablet PO (09:20)
[2023-05-24] MEDS: azithromycin 250 mg Tablet 500 MG PO (09:21)
[2023-05-24] MEDS: thiamine 100 mg Tablet PO (09:21)
[2023-05-24] MEDS: sennosides-docusate Tablet 1 TAB PO (09:21)
--- NOTE | 2023-05-24 12:43 | P.PN_ITS ---
Subjective Subjective: /overnight labs and H&P reviewed. Patient is AAO x 3 this afternoon/ No new complaints. Not a reliable historian. states that he was able to drive himself independently, mows the lawn etc priro to one week ago, however at other times states that he will be unable to drive himself to his outpatient appts, states that he statys in his recliner most of the day, states that he sliops out of the recliner and thats how he gets bruised everywhere. he is wondering if he can get a hospital bed and Bipap for hiome use. States that Bipap made him feel much better,. he does not recall being diagnosed with a PE last admission. States that his neighbor checks in on him frequently. past chart review shows that patient was having issues with recurrent falls as far back as December of this year, was not considered a candidate for a/c due to high fall risk. recently admitted with facial injuries due to fall out of recliner. Medications: Reviewed: Yes Vitals/I&O/Wt Last Vital Signs Temp 98.4 F 05/23/23 15:16 Pulse 91 05/24/23 12:02 Resp 20 H 05/24/23 09:30 BP 101/64 05/24/23 09:30 Pulse Ox 95 05/24/23 12:02 O2 Del Method Nasal Cannula 05/24/23 09:30 O2 Flow Rate 3 05/24/23 12:02 FiO2 30 05/24/23 07:22 05/23/23 05/24/23 05/24/23 22:59 06:59 14:59 Intake Total 100 / 100 480 / 580 Output Total 975 / 975 Balance 100 / 100 -495 / -395 Weight last 48 hrs Weight 104.326 kg Physical Exam Narrative: General: No acute distress, AO x3 HEENT: PERRLA, pupils bilaterally equal and reactive, pallors not present Chest: Normal vesicular breath sounds, no added sounds, equal good air entry bilaterally CVS: S1-S2 regular, no murmurs, no tachycardia, no gallops, no rubs Abdomen: Soft, nontender, no organomegaly, bowel sounds present Neuro: No focal deficits, no facial deformity, AO x3, power 5/5 in all limbs Urinary Catheter Management: Jeffery: Cath Placed During This Visit: yes Reason for Continuing Indwelling Catheter: Accurate Measurement of Urinary Output in Critically Ill Patients Urinary Catheter Date of Insertion: 05/23/23 Urinary Catheter Time of Insertion: 21:57 Data 05/24/23 04:13 05/24/23 04:13 A&P Assessment and plan (1) Contusion of face: (2) Hematoma of frontal scalp: (3) Hypokalemia: (4) Acute on chronic respiratory failure with hypoxia and hypercapnia: (5) Obstructive sleep apnea: (6) Lymphedema: (7) Sacral pressure ulcer: Qualifiers: Pressure injury stage: unspecified pressure injury stage Qualified Code(s): L89.159 - Pressure ulcer of sacral region, unspecified stage (8) Obesity, morbid: (9) Alcohol abuse: (10) COPD exacerbation: (11) CHF exacerbation: Plan 68-year-old male with recurrent falls, recurrent admissions Active smoker uses oxygen on as needed basis at home presented with recurrent falls confusion and lethargy # Acute on chronic hypoxic hypercapnic respite failure suspected related to Untreated sleep apnea vs COPD as yet undianosed recent CTA march with healed granulomatous disease and PE did not take a/c at home, will hold for now given recurrent falls and extensive brusing over face Continue bipap ta night Overnight oximetry study, patient needs Bipap for home use Patient is improving clinically change ICu to med/surg admission Dexamethasone 6 mg IV every 24 hours Scheduled inhalation of DuoNeb and budesonide #CHF exacerbation, acute on chronic Last echocardiogram from December 2022 showing diffuse hypokinesia of the left ventricle with a diminished ejection fraction of 48%.? Diffuse hypokinesia of t op of the right ventricle with mild dilatation. Overall impression that of acute on chronic systolic heart failure Monitor AGUSTO's Monitor renal function with diuresis. History of PE, Patient was discharged on Eliquis on last admission however stating that he has stopped using it, holding for now as noted above Multiple petechiae bruises all over his face due to recurrent falls PT/OT eval, cause of recurrent falls not entirely clear check orthostatics has a past h/o alcohol use Alcohol abuse Continue thiamine folic acid Lives alone, brother checks on him once a month, neighbor takes care of him most of the time who is an EMT Patient is full code Cardiac diet History of lymphedema uses compression wraps Attestations Medical Necessity Statement*: Continued optimization of respiratory sttaus, thjerapy eval Coding Level of Care Code Acute Code for Chg Fwd Diagnoses Contusion of face S00.83XA Hematoma of frontal scalp S00.03XA Hypokalemia E87.6 Acute on chronic respiratory failure with hypoxia and hypercapnia J96.21; J96.22 Obstructive sleep apnea G47.33 Lymphedema I89.0 Sacral pressure ulcer L89.159 Pressure injury stage: unspecified pressure injury stage Obesity, morbid E66.01 Alcohol abuse F10.10 COPD exacerbation J44.1 CHF exacerbation I50.9
[2023-05-24] MEDS: ipratropium-albuterol 3 mL Neb INHALATION (21:15)
[2023-05-24] MEDS: budesonide 0.5 mg/2 mL Neb INHALATION (21:15)
[2023-05-25] VITALS (7 sets, daily range): BP systolic 118–152; BP diastolic 80–99; PULSE 76–91; RESP 16–20; TEMP 36.6–36.9; O2SAT 77–96
[2023-05-25] MEDS: methylPREDNISolone sod succ 40 mg/mL INJ IVP (06:30)
[2023-05-25] MEDS: bumetanide 1 mg Tablet 2 MG PO (08:14)
[2023-05-25] MEDS: ondansetron 2 mg/ML SDV 2 mL 4 MG IVP (08:14)
[2023-05-25] MEDS: sennosides-docusate Tablet 1 TAB PO (08:14)
[2023-05-25] MEDS: pantoprazole DR 40 mg Tablet PO (08:14)
[2023-05-25] MEDS: thiamine 100 mg Tablet PO (08:14)
[2023-05-25] MEDS: amlodipine 10 mg Tablet PO (08:14)
[2023-05-25] MEDS: folic acid 1 mg Tablet PO (08:14)
[2023-05-25 08:27] LABS: Alanine Aminotransferase 33 U/L (0-41); Albumin Level 3.7 g/dL (3.5-5.2); Alkaline Phosphatase 81 U/L (40-130); Anion Gap 11.5 (5-19); Aspartate Amino Transferase 39 U/L (0-40); Blood Urea Nitrogen 28 mg/dL (8-23); Calcium 9.3 mg/dL (8.5-10.5); Carbon Dioxide 38 mmol/L (22-29); Chloride 94 mmol/L (98-107); Globulin 3.1 g/dL (1.3-4.6); Glomerular Filtration Rate 84.4 mL/min (90-130); Glucose 172 mg/dL (65-115); Osmolality Calculated 300 mOsm/kg (285-295); Potassium 3.5 mmol/L (3.5-5.1); Sodium 140 mmol/L (136-145); Total Bilirubin 0.7 mg/dL (0.15-1.2); Total Protein 6.8 g/dL (6.6-8.7)
[2023-05-25] MEDS: ipratropium-albuterol 3 mL Neb INHALATION (08:34)
[2023-05-25] MEDS: budesonide 0.5 mg/2 mL Neb INHALATION (08:35)
--- NOTE | 2023-05-25 13:55 | P.DS_ITS ---
Discharge Providers Date of Admission: 05/23/23 19:40 Date of Discharge: May 25, 2023 Attending Provider at Admission: Uriel Pascual MD Attending Provider at Discharge: Pamela Ray MD Primary Care Provider: Ed Branch Diagnoses at Discharge Discharge Diagnosis (1) Contusion of face: Status: Acute (2) Hematoma of frontal scalp: Status: Acute (3) Hypokalemia: Status: Acute (4) Acute on chronic respiratory failure with hypoxia and hypercapnia: Status: Acute (5) Obstructive sleep apnea: Status: Acute (6) Lymphedema: Status: Acute Permanent problem details: -has chronic lymphedema of bilateral LE -LE elevation and lymphedema wraps if appropriate -negative DVT per venous duplex (7) Sacral pressure ulcer: Status: Acute Qualifiers: Pressure injury stage: unspecified pressure injury stage Qualified Code(s): L89.159 - Pressure ulcer of sacral region, unspecified stage (8) Obesity, morbid: Status: Acute (9) Alcohol abuse: Status: Acute (10) COPD exacerbation: Status: Acute (11) CHF exacerbation: Status: Acute Reason for Visit Reason for Visit: RIGHT EYE/LOW BACK PAIN S/P FALL Hospital Course Hospital Course 68-year-old male with recurrent falls, recurrent admissions for falls and respiratory depression Active smoker uses oxygen on as needed basis at home though has been recommended 3 lpm at all times at last discharge, presented with recurrent falls confusion and lethargy. Hospital course as follows: # Acute on chronic hypoxic hypercapnic respiratory failure suspected related to untreated sleep apnea vs COPD as yet undiagnosed recent CTA from March with healed granulomatous disease and PE did not take a/c at home, will hold for now going forward given recurrent falls and extensive bruising over face. Per review of past notes , it appears that he has a past h/o PE and used to be on a/c which was stopped for reason of recurrent falls in the past as well. He has been non compliant at home with a/c at home recently because he doesn't think he needs it. He improved significantly with being on BiPAP. Sleep oximetry study was performed which showed at least 2 episodes of desaturation on an average of lasting 12 seconds. Results of the sleep oximetry study and ABG have been sent to HOME to see if he will qualify fir Bipap at home per insurance. Clinically he is likely to benefit. Add Advair and spiriva inhalers at discharge Sleeps in a recliner at all times as cannot lay flat due to orthopnea. Requests hospital bed to enable HOB elevation at all times #CHF exacerbation, acute on chronic Last echocardiogram from December 2022 showing diffuse hypokinesia of the left ventricle with a diminished ejection fraction of 48%.? Diffuse hypokinesia of top of the right ventricle with mild dilatation. Overall impression that of acute on chronic systolic heart failure Continue Bumex at 2 mg BID dosing #History of PE, Patient was discharged on Eliquis on last admission however stating that he has stopped using it, holding for now as noted above # Multiple petechiae bruises all over his face due to recurrent falls PT eval appreciated. Alcohol abuse Continue thiamine folic acid at discharge discharged today in best optimized condition with high risk of readmission Physical Exam Narrative: General: No acute distress, AO x3 HEENT: PERRLA, pupils bilaterally equal and reactive, pallors not present Chest: Normal vesicular breath sounds, no added sounds, equal good air entry bilaterally CVS: S1-S2 regular, no murmurs, no tachycardia, no gallops, no rubs Abdomen: Soft, nontender, no organomegaly, bowel sounds present Neuro: No focal deficits, no facial deformity, AO x3, power 5/5 in all limbs ext: chronic B/L LE lymphedema Urinary Catheter Management: Jeffery: Cath Placed During This Visit: yes Reason for Continuing Indwelling Catheter: Accurate Measurement of Urinary Output in Critically Ill Patients Urinary Catheter Date of Insertion: 05/23/23 Urinary Catheter Time of Insertion: 21:57 Discharge Data Studies Completed and Pending Completed Studies During Hospitalization Category Date Time Status CT cervical spin wo con* 35914 Stat Cat Scan 05/23/23 15:[address] facial bones wo con* [id number] Stat Cat Scan 05/23/23 15:[address] head wo con* [id number] Stat Cat Scan 05/23/23 15:54 Completed XR chest 1V portable [id number] Stat Exams 05/23/23 18:20 Completed Pending at discharge Category Date Time Status Complete Blood Count w/Auto AM LABS Lab 05/26/23 04:00 Ordered Radiology Impressions Cervical Spine CT 05/23/23 15:54 IMPRESSION: 1. No acute findings. 2. Degenerative changes. Face CT 05/23/23 15:54 IMPRESSION: Soft tissue swelling. No acute osseous abnormality. Head CT 05/23/23 15:54 IMPRESSION: No acute intracranial abnormality. Chest X-Ray 05/23/23 18:20 IMPRESSION: No focal consolidation. Laboratory Results WBC 8.88 10^3/uL (3.29-11.43) 05/24/23 04:13 RBC 5.35 10^6/uL (3.85-5.65) 05/24/23 04:13 Hgb 16.40 g/dL (11.27-16.99) 05/24/23 04:13 Hct 49.9 % (37-53) 05/24/23 04:13 MCV 93.3 fl (82-101) 05/24/23 04:13 MCH 30.7 pg (27-33) 05/24/23 04:13 MCHC 32.9 g/dL (30-55) 05/24/23 04:13 RDW 12.3 % (12.1-15.1) 05/24/23 04:13 Plt Count 373 10^3/cmm (157-399) 05/24/23 04:13 MPV 8.7 fL (7.4-10.4) 05/24/23 04:13 Neut % (Auto) 90.0 % 05/24/23 04:13 Lymph % (Auto) 7.8 % 05/24/23 04:13 Geary % (Auto) 1.0 % 05/24/23 04:13 Eos % (Auto) 0.1 % 05/24/23 04:13 Baso % (Auto) 0.3 % 05/24/23 04:13 Neut # (Auto) 7.99 10^3/uL (1.8-7.7) H 05/24/23 04:13 Lymph # (Auto) 0.7 10^3/uL (0.8-4.8) L 05/24/23 04:13 Geary # (Auto) 0.1 10^3/uL (0.2-0.9) L 05/24/23 04:13 Eos # (Auto) 0.0 10^3/uL (0.0-0.8) 05/24/23 04:13 Baso # (Auto) 0.0 10^3/uL (0.0-0.1) 05/24/23 04:13 Nucleated RBC % (auto) 0 % 05/24/23 04:13 Nucleated RBCs # 0.0 /100WBC 05/24/23 04:13 Specimen Type Arterial 05/23/23 22:58 Sample Site Radial, right 05/23/23 22:58 ABG pH 7.31 (7.35-7.45) L 05/23/23 22:58 ABG pCO2 73.9 mmHg (35-45) H* 05/23/23 22:58 ABG pO2 112.0 mmHg (80.0-100.0) H 05/23/23 22:58 ABG PO2/FiO2 Ratio 0 05/23/23 22:58 ABG HCO3 37.2 mmol/L (22-26) H 05/23/23 22:58 ABG Base Excess 7.5 mmol/L (-2.0-2.0) H 05/23/23 22:58 Toro Test Pos 05/23/23 22:58 Hematocrit 48.9 % (42-52) 05/23/23 22:58 O2 Delivery Device Bipap 05/23/23 22:58 O2 Liters/Min 2.0 % 05/23/23 18:32 FiO2 50.0 % 05/23/23 22:58 Talent Development Consultant ID [email or web address] 05/23/23 22:58 Sodium 140 mmol/L (136-145) 05/25/23 04:36 Potassium 3.5 mmol/L (3.5-5.1) 05/25/23 04:36 Chloride 94 mmol/L (98-107) L 05/25/23 04:36 Carbon Dioxide 38 mmol/L (22-29) H 05/25/23 04:36 Anion Gap 11.5 (5-19) 05/25/23 04:36 BUN 28 mg/dL (8-23) H 05/25/23 04:36 Creatinine 0.9 mg/dL (0.7-1.2) 05/25/23 04:36 GFR Calculation 84.4 mL/min (90-130) L 05/25/23 04:36 Glucose 172 mg/dL (65-115) H 05/25/23 04:36 Estimat Average Glucose 120 05/23/23 18:37 Hemoglobin A1c 5.8 % (4.0-6.0) 05/23/23 18:37 Calculated Osmolality 300 mOsm/kg (285-295) H 05/25/23 04:36 Calcium 9.3 mg/dL (8.5-10.5) 05/25/23 04:36 Phosphorus 4.8 mg/dL (2.5-4.5) H 05/24/23 04:13 Magnesium 2.3 mg/dL (1.7-2.3) 05/24/23 04:13 Total Bilirubin 0.7 mg/dL (0.15-1.2) 05/25/23 04:36 AST 39 U/L (0-40) 05/25/23 04:36 ALT 33 U/L (0-41) 05/25/23 04:36 Alkaline Phosphatase 81 U/L (40-130) 05/25/23 04:36 C-Reactive Protein 73.2 mg/L (0.0-4.9) H 05/24/23 04:13 NT-Pro-B Natriuret Pep 166 pg/mL (0-125) H 05/23/23 18:37 Total Protein 6.8 g/dL (6.6-8.7) 05/25/23 04:36 Albumin 3.7 g/dL (3.5-5.2) 05/25/23 04:36 Globulin 3.1 g/dL (1.3-4.6) 05/25/23 04:36 Vitamin B12 577 pg/mL (232-1245) 05/23/23 18:37 Ethyl Alcohol < 10 mg/dL (0-10) 05/23/23 18:37 Vitals Last Vital Signs Temp 98.2 F 05/25/23 00:30 Pulse 76 05/25/23 08:54 Resp 20 H 05/25/23 08:54 BP 118/80 05/25/23 00:30 Pulse Ox 94 05/25/23 08:54 O2 Del Method Nasal Cannula 05/25/23 08:54 O2 Flow Rate 3 05/25/23 08:54 FiO2 30 05/24/23 07:22 Discharge Plan Discharge Patient Disposition: Home Condition: Stable Prescriptions: New Advair Diskus 500-50 mcg/dose blister with device 1 inh inhalation BID Qty: 60 0RF Spiriva with HandiHaler 18 mcg capsule, w/inhalation device 1 cap inhalation DAILY 30 Days Qty: 30 0RF Rx Instructions: puncture 1 cap using device; one dose = 2 inhalations prednisone 10 mg tablet 40 mg PO DAILY 5 Days Qty: 10 0RF thiamine HCl (vitamin B1) 100 mg tablet 100 mg PO DAILY Qty: 30 0RF Continued aspirin 81 mg Tablet,Delayed Release (Dr/Ec) 81 mg PO QAM acetaminophen 500 mg Tablet 1,000 mg PO Q6H PRN (Reason: Pain) albuterol sulfate 90 mcg/actuation HFA aerosol inhaler 2 puff INHALATION Q6H PRN (Reason: Shortness Of Breath) furosemide 40 mg tablet 40 mg PO BID pantoprazole 40 mg tablet,delayed release (DR/EC) 40 mg PO DAILY bumetanide 1 mg tablet 2 mg PO BID amlodipine 10 mg tablet 10 mg PO DAILY Discontinued Eliquis 5 mg tablet 5 mg PO BID Discharge Orders: Discharge Order (Routine); Ordered 05/25/23 Ordered By: Pamela Ray Other Ambulatory Orders: DME: Hospital Bed (Order) Location: None Selected Ordered By: Pamela Ray Referrals: Datar,Da Carias MD [Physician] - (possibly undiagnosed COPD vs GORDON. recurrent admissions for hypoxia and hypercapnea. h/o PE, not on a/c due to multiple falls ) Ed Branch [Primary Care Provider] - 05/28/23 10:00 am Discharge Diet: Usual diet Discharge Activity: Resume usual activity Patient Instructions: Prednisone (By mouth) (predniSONE Intensol, Prednicot, Deltasone, Shai), Fluticasone/Salmeterol (By breathing) (Advair Diskus 100/50, Advair..., Tiotropium (By breathing) (Spiriva, Spiriva Respimat), Heart Failure (DC), COPD (Chronic Obstructive Pulmonary Disease) (DC), Opioid Safety Discharge Attestations Time Spent in Discharge Care*: greater than 30 min Status at Discharge: Cognitive status at discharge: cognitively intact , Behavioral status at discharge: cooperative , Quality Metrics Clinical Quality Measures [ No reported AMI, CVA or VTE this stay] Coding Level of Care Code Acute Code for Chg Fwd Diagnoses Contusion of face S00.83XA Hematoma of frontal scalp S00.03XA Hypokalemia E87.6 Acute on chronic respiratory failure with hypoxia and hypercapnia J96.21; J96.22 Obstructive sleep apnea G47.33 Lymphedema I89.0 Pressure injury of skin of sacral region, unspecified injury stage L89.159 Pressure injury stage: unspecified pressure injury stage Obesity, morbid E66.01 Alcohol abuse F10.10 COPD exacerbation J44.1 CHF exacerbation I50.9
--- NOTE | 2023-05-25 15:59 | PC.NURSE ---
Discussed discharge follow up appointments, new medications, continued mediations and discontinue medications with patient. Explained to patient he did not qualify for a bi pap. Called his son Edmar while in the room to let him know he was ready for discharge and to bring his portable oxygen. Pulled bill catheter at 1515 pm.
[2023-06-08 10:02] LABS: ABG PCO2 73.9 mmHg (35-45)
== END 2023-05-25 17:31 | disposition home or self-care (01) | DRG 189 ==
LOC: ER 22:26 → ER IP 05-24 05:08 → MEDSURG 05-24 05:08 → ER IP 05-24 05:09 → MEDSURG 05-24 15:12
PROVIDERS: Admitting Provider Internal Medicine; Emergency Provider Family Medicine; PCP Family Medicine; Visit Provider Student in an Organized Health Care Education/Training Program
DX: J96.22 Acute and chronic respiratory failure with hypercapnia (principal); I50.23 Acute on chronic systolic (congestive) heart failure; E87.29 Other acidosis; J44.1 Chronic obstructive pulmonary disease with (acute) exacerbation; J96.21 Acute and chronic respiratory failure with hypoxia; F17.210 Nicotine dependence, cigarettes, uncomplicated; Z99.81 Dependence on supplemental oxygen; Z91.199 Patient's noncompliance with other medical treatment and regimen due to unspecified reason; E66.01 Morbid (severe) obesity due to excess calories; Z68.34 Body mass index [BMI] 34.0-34.9, adult; L89.159 Pressure ulcer of sacral region, unspecified stage; G47.33 Obstructive sleep apnea (adult) (pediatric); I89.0 Lymphedema, not elsewhere classified; F10.10 Alcohol abuse, uncomplicated; E87.6 Hypokalemia; Z86.711 Personal history of pulmonary embolism; R29.6 Repeated falls; S00.83XA Contusion of other part of head, initial encounter; S00.03XA Contusion of scalp, initial encounter; W07.XXXA Fall from chair, initial encounter; Y92.009 Unspecified place in unspecified non-institutional (private) residence as the place of occurrence of the external cause
CPT/HCPCS: 36415; 36600; 51702; 70450; 70486; 71045; 72125; 80048; 80053; 80307; 82607; 82803; 83036; 83735; 83880; 84100; 85025; 86140; 93005; 93010; 94640; 94660; 94762; 96374; 97161; 99291; J2405; J2920; J2930; J3480; J7626; Q0144

== ENCOUNTER 2023-07-05 22:49 | Inpatient (IN) | payer MEDICARE, SELFPAY ==
[2023-07-05 22:50] VITALS: BP 129/69; PULSE 112; RESP 20; TEMP 36.6; O2SAT 97; BMI 34.0
--- NOTE | 2023-07-05 22:55 | ECG_ITS ---
[facility] Test Date: 2023-07-05 Pat Name: Satish Jones Department: Room: ICU07 Gender: Male Creative Technologist: : 1955 Requested By: Lazaro Rios Order Number: [id number] Myles MD: Yeimy Mike M.D. Measurements Intervals [place] Rate: 102 P: 57 WI: 170 QRS: 259 QRSD: 150 T: 42 QT: 335 QTc: 438 Interpretive Statements SINUS TACHYCARDIA RIGHT AXIS DEVIATION [QRS AXIS > 100] RIGHT BUNDLE BRANCH BLOCK [120+ ms QRS DURATION, UPRIGHT V1, 40+ ms S IN I/aVL/V4/V5/V6] POSSIBLE ANTERIOR MYOCARDIAL INFARCTION , OF INDETERMINATE AGE [30 ms Q WAVE IN V3/V4, OR R < 0.2 mV IN V4] Compared to ECG 05/23/2023 19:29:54 Right-axis deviation now present Myocardial infarct finding now present Sinus rhythm no longer present Ventricular premature complex(es) no longer present Electronically Signed On 07-06-2023 21:44:30 STUFFING MACHINE OPERATOR by Yeimy Mike M.D. [id number] aleida
--- NOTE | 2023-07-05 23:02 | XRR_ITS ---
PROCEDURE INFORMATION: Exam: XR Chest Exam date and time: 07/05/2023 11:05 PM Age: 68 years old Clinical indication: Device placement; Ett placement (vent status); Other: Respiratory failure TECHNIQUE: Imaging protocol: Radiologic exam of the chest. Views: 1 view. COMPARISON: CR (CHEST, ) 05/23/2023 6:28 PM FINDINGS: Tubes, catheters and devices: Endotracheal tube terminates in the midthoracic trachea. Lungs: Lungs are hypoinflated. No focal consolidation. Pleural spaces: No large pleural effusion. No pneumothorax. Heart/Mediastinum: Unchanged cardiomegaly. Asymmetric right hemidiaphragm elevation. Bones/joints: No acute abnormality. Gastrointestinal tract: Gaseous distention of the stomach and dilated gas-filled loop of large bowel in the upper abdomen. XR/XR chest 1V portable [id number] IMPRESSION: 1. Endotracheal tube in satisfactory position. 2. No focal consolidation, with lung hypoinflation somewhat limiting evaluation. 3. Gaseous distention of the stomach and dilated gas-filled loop of large bowel in the upper abdomen.
[2023-07-05 23:04] LABS: Arterial Blood Gas Hematocrit 53.1 % (42-52); Base Excess ABG 1.4 mmol/L (-2.0-2.0); Blood Gas Allen Test Pos; Blood Gas Operator Identificat JB; Blood Gas Sample Site Radial, right; Blood Gas Sample Type Arterial; Carboxyhemoglobin 4.2 %THgb (0.4-20.1); HCO3 ABG 36.6 mmol/L (22-26); Ionized Calcium Level - ABG 1.2 mmol/L (1.1-1.4); Methemoglobin 0.2 % (0.4-1.5); Oxygen Device AMBU; Oxygen Saturation ABG > 100.0; Potassium Level - ABG 3.8 mmol/L (3.5-5.0); Total Hemoglobin 17.3 g/dL (14-18)
[2023-07-05] MEDS: midazolam 1 mg/mL INJ 2 mL 4 MG IVP (23:05)
[2023-07-05 23:06] LABS: ABG PH Result 7.09 (7.35-7.45)
--- NOTE | 2023-07-05 23:08 | W.ED.SOB ---
HPI - SOB/Dyspnea General: Chief Complaint: Shortness of Breath/Dyspnea Stated Complaint: RESP. DISTRESS Time Seen by Provider: 07/05/23 23:02 History of Present Illness: HPI Narrative: 68-year-old male presents emergency department in acute respiratory failure via EMS personnel. EMS personnel state that the first responders/caregiver who is with the patient called them because the patient was having difficulty breathing he is been seen and admitted here to this hospital many times for hypercapnia and respiratory failure. Patient at present is unresponsive and being provided gky-gihwz-udlw ventilations upon arrival to the emergency department by EMS. Patient required emergent intubation and ventilatory assistance. Review of Systems General: Reports: ROS unobtainable due to medical condition and ROS unobtainable due to mental status PFS ED PFSH: Medical History Prostate cancer Pulmonary embolism Surgical History Hx of colonoscopy May 2022, polyps found Status post colonoscopy H/O prostatectomy History of umbilical hernia repair Social History Smoking and tobacco/nicotine status: current some day tobacco/nicotine user Alcohol intake: former Marital status: Single Current occupational status: retired Physical Exam Narrative: EXAM NARRATIVE: Constitutional: the patient appears acutely ill. Vital signs as documented. Respiratory failure with ivf-zrerj-ltxr ventilation via EMS upon arrival. No spontaneous respirations. Patient is unresponsive. He appears malodorous and unkept Head, eyes, ears, nose, mouth, throat: Normocephalic, atraumatic. Pupils-equal, round, reactive to light. No scleral icterus. Normal-appearing external ears. Normal appearing nasal turbinates, no drainage. No obvious oral lesions, posterior oropharynx without erythema or exudates. Neck: Supple, trachea is midline, no lymphadenopathy, no jugular venous distension, thyromegaly, or carotid bruits. Carotid upstrokes are brisk bilaterally. Lungs: Coarse bilaterally and diminished in the bases. Symmetrical rise and fall of chest with assisted ventilations. Cardiac: Regular rate and rhythm, positive S1, S2. No murmurs, rubs or gallops that I can appreciate Abdomen: Soft, non-tender to palpation, normal active bowel sounds to all quadrants. No palpable masses, no organomegaly or abdominal bruits. Well-healed midline abdominal surgical scar noted. There is a generalized rash to the left lower abdomen and bilateral groin area. Extremities: 2+ pulses in the upper extremities that are equal bilaterally, 2+ pulses in the lower extremities that are equal bilaterally. Non-edematous. Skin: Warm, dry, intact. Erythematous rash to the lower abdomen and groin area. Course ED course: PROCEDURE: RSI (RAPID SEQUENCE INTUBATION) Because of the patient's severe respiratory distress/failure, and/or other factors, we proceeded with emergent rapid sequence intubation. We prepared by pre-oxygenating the patient, and checking the equipment such as the laryngoscope, ETTs, and suction. The crash cart and difficult airway box, were also readily available. The patient was maintained on a batter out, end-tidal CO2 monitor, oxygen, continuous pulse oximetry, and IV fluids were running. The patient was then induced using IV 4 mg Versed, 100 mcg of fentanyl This was followed immediately by 120 mg SUCCINYLCHOLINE, while maintaining gentle cricoid pressure. Once paralyzed, the vocal cords were visualized utilizing a 3 Mac Blade. Then a 8.0 endotracheal tube was placed using direct laryngoscopy. The cuff was inflated, and the tube was secured by the respiratory therapist. Tube placement was confirmed via auscultation, capnometry, condensation in the tube, and finally by portable CXR. The patient was then stabilized on a ventilator. Shortly thereafter, an ABG was obtained and analyzed. Subsequent to this, the patient was given adequate analgesia using a propofol DRIP, as well as other prn meds to make sure the patient was comfortable There were no significant complications post-intubation. Vital Signs: Vital signs: Vital Signs Temperature 99.6 F 07/06/23 16:00 Pulse Rate 90 07/06/23 16:00 Respiratory Rate 16 07/06/23 17:16 Blood Pressure 119/70 07/06/23 16:00 Pulse Oximetry 94 07/06/23 17:16 Oxygen Delivery Me thod Mechanical Ventil ation 07/06/23 13:38 Fraction of Inspir ed Oxygen 40 07/06/23 17:16 MDM - SOB/Dyspnea Medical Decision Making Physical exam completed and documented, I will obtain a CBC, CMP cardiac enzymes serial twelve-lead EKGs a chest x-ray patient required emergent intervention for his respiratory failure procedure as noted. Will obtain lactic acid, procalcitonin, blood cultures urinalysis and place a Jeffery catheter for strict I/O monitoring. Medical Records I reviewed the patient's medical records. Lab Data I reviewed the patient's lab results. 07/06/23 14:05 07/06/23 12:06 Labs/Radiology: Radiology Impressions Chest X-Ray 07/06/23 14:11 IMPRESSION: NG tube projects in stomach. Laboratory Results WBC 10.02 10^3/uL (3.29-11.43) 07/05/23 23:30 RBC 5.21 10^6/uL (3.85-5.65) 07/05/23 23:30 Hgb 16.10 g/dL (11.27-16.99) 07/05/23 23:30 Hct 52.5 % (37-53) 07/05/23 23:30 MCV 100.8 fl (82-101) 07/05/23 23:30 MCH 30.9 pg (27-33) 07/05/23 23:30 MCHC 30.7 g/dL (30-55) 07/05/23 23:30 RDW 12.9 % (12.1-15.1) 07/05/23 23:30 Plt Count 252 10^3/cmm (157-399) 07/05/23 23:30 MPV 9.0 fL (7.4-10.4) 07/05/23 23:30 Neut % (Auto) 79.0 % 07/05/23 23:30 Lymph % (Auto) 12.7 % 07/05/23 23:30 [place] % (Auto) 6.5 % 07/05/23 23:30 Eos % (Auto) 0.1 % 07/05/23 23:30 Baso % (Auto) 0.8 % 07/05/23 23:30 Neut # (Auto) 7.92 10^3/uL (1.8-7.7) H 07/05/23 23:30 Lymph # (Auto) 1.3 10^3/uL (0.8-4.8) 07/05/23 23:30 [place] # (Auto) 0.7 10^3/uL (0.2-0.9) 07/05/23 23:30 Eos # (Auto) 0.0 10^3/uL (0.0-0.8) 07/05/23 23:30 Baso # (Auto) 0.1 10^3/uL (0.0-0.1) 07/05/23 23:30 Nucleated RBC % (auto) 0 % 07/05/23 23:30 Nucleated RBCs # 0.0 /100WBC 07/05/23 23:30 PT 14.10 SECONDS (12.1-14.9) 07/05/23 23:30 INR 1.06 (0.8-1.2) 07/05/23 23:30 APTT 33.5 SECONDS (23.9-36.7) 07/05/23 23:30 D-Dimer 0.39 ug/mLFEU (0-0.59) 07/05/23 23:30 Specimen Type Arterial 07/05/23 22:50 Sample Site Radial, right 07/05/23 22:50 ABG pH 7.09 (7.35-7.45) L* 07/05/23 22:50 ABG pCO2 121.0 mmHg (35-45) H* 07/05/23 22:50 ABG pO2 231.0 mmHg (80.0-100.0) H 07/05/23 22:50 ABG HCO3 36.6 mmol/L (22-26) H 07/05/23 22:50 ABG O2 Saturation > 100.0 07/05/23 22:50 ABG Base Excess 1.4 mmol/L (-2.0-2.0) 07/05/23 22:50 Toro Test Pos 07/05/23 22:50 A-a O2 Gradient Not Reportable 07/05/23 22:50 Hematocrit 53.1 % (42-52) H 07/05/23 22:50 Hgb O2 Saturation 96.0 % (95-100) 07/05/23 22:50 Carboxyhemoglobin 4.2 %THgb (0.4-20.1) 07/05/23 22:50 Methemoglobin 0.2 % (0.4-1.5) L 07/05/23 22:50 Total Hemoglobin 17.3 g/dL (14-18) 07/05/23 22:50 Sodium 150.0 mmol/L (131-143) H 07/05/23 22:50 Potassium 3.8 mmol/L (3.5-5.0) 07/05/23 22:50 Glucose 159.0 mg/dL (70-115) H 07/05/23 22:50 Ionized Calcium 1.2 mmol/L (1.1-1.4) 07/05/23 22:50 O2 Delivery Device Ambu 07/05/23 22:50 O2 Liters/Min 15.0 % 07/05/23 22:50 Duct Layer ID Lele 07/05/23 22:50 Sodium 143 mmol/L (136-145) 07/05/23 23:30 Potassium 6.2 mmol/L (3.5-5.1) H 07/05/23 23:30 Chloride 101 mmol/L (98-107) 07/05/23 23:30 Carbon Dioxide 32 mmol/L (22-29) H 07/05/23 23:30 Anion Gap 16.2 (5-19) 07/05/23 23:30 BUN 20 mg/dL (8-23) 07/05/23 23:30 Creatinine 0.8 mg/dL (0.7-1.2) 07/05/23 23:30 GFR Calculation 96.7 mL/min (90-130) 07/05/23 23:30 Glucose 153 mg/dL (65-115) H 07/05/23 23:30 Calculated Osmolality 302 mOsm/kg (285-295) H 07/05/23 23:30 Lactic Acid 1.5 mmol/L (0.5-2.2) 07/05/23 23:30 Calcium 9.2 mg/dL (8.5-10.5) 07/05/23 23:30 Total Bilirubin 0.5 mg/dL (0.15-1.2) 07/05/23 23:30 AST 14 U/L (0-40) 07/05/23 23:30 ALT 8 U/L (0-41) 07/05/23 23:30 Alkaline Phosphatase 94 U/L (40-130) 07/05/23 23:30 NT-Pro-B Natriuret Pep 779 pg/mL (0-125) H 07/05/23 23:30 Total Protein 7.3 g/dL (6.6-8.7) 07/05/23 23:30 Albumin 4.1 g/dL (3.5-5.2) 07/05/23 23:30 Globulin 3.2 g/dL (1.3-4.6) 07/05/23 23:30 Procalcitonin 0.08 ng/mL (0-0.5) 07/05/23 23:30 Urine Color Yellow (Yellow) 07/05/23 23:30 Urine Appearance Clear (CLEAR) 07/05/23 23:30 Urine pH 5 (5-7) 07/05/23 23:30 Ur Specific [place] 1.030 (1.005-1.030) 07/05/23 23:30 Urine Protein 3+ (Negative) H 07/05/23 23:30 Urine Glucose (UA) Norm (Normal) 07/05/23 23: Urine Ketones 1+ (Negative) H 07/05/23 23:30 Urine Blood Trace (Negative) H 07/05/23 23:30 Urine Nitrate Negative (Negative) 07/05/23 23:30 Urine Bilirubin 1+ (Negative) H 07/05/23 23:30 Urine Urobilinogen 1 mg/dL (Negative) H 07/05/23 23:30 Ur Leukocyte Esterase Negative (Negative) 07/05/23 23:30 Urine RBC 0-4 /hpf (0-2) H 07/05/23 23:30 Urine WBC None /hpf (0-5) 07/05/23 23:30 Ur Squamous Epith Cells None /hpf (0-5) 07/05/23 23:30 Amorphous Sediment Not Reportable 07/05/23 23:30 Urine Bacteria Trace /hpf (NONE) 07/05/23 23:30 Urine Mucus 2+ /hpf 07/05/23 23:30 Ethyl Alcohol < 10 mg/dL (0-10) 07/05/23 23:30 All radiology interpretation(s) finalized by discharge EKG Data EKG 1: Interpretation: Twelve-lead EKG obtained at 2254 and reviewed at 2054 demonstrates sinus tachycardia with a ventricular rate of 102 bpm, MS interval 170 QRS duration 150 QT 335 QTc [address] elevation or depression at present to demonstrate acute ischemia or infarction. There is a right bundle sunita noted. There is significantly low amplitude noted on EKG. Critical Care Time Critical Care Time: Critical Care Time: Yes Total Critical Care Time: 65 Attestation: The patients was emergenctl evaluated as this patient's presentation and case had a high probability of a clinically significant, sudden, or life threatening deterioration of this patient's initial critical presentation or condition which required my full and direct attention, intervention and personal management. Discharge Plan Discharge Patient Disposition: Admitted As Inpatient Admit Provider: Pamela Ray Clinical Impression: Respiratory failure Condition: Stable Coding Level of Care Code ED [employer] Laboratory Manager for Sharmin Stewart
[2023-07-05] MEDS: propofol 1,000 MG/100 ML INJ 3.13 MG IV (23:10)
[2023-07-05 23:23] VITALS: RESP 16
[2023-07-05] MEDS: succinylcholine 20 mg/mL SDV 10mL 120 MG IV (23:31)
[2023-07-05] MEDS: sodium chloride 0.9% 1,000 ML 999 ML IV (23:31)
[2023-07-05 23:35] VITALS: BP 94/67; PULSE 82; RESP 16; O2SAT 94
[2023-07-05 23:41] LABS: Basophils # 0.1 10^3/uL (0.0-0.1); Basophils % 0.8 %; Eosinophils % 0.1 %; Hematocrit 52.5 % (37-53); Lymphocytes # 1.3 10^3/uL (0.8-4.8); Lymphocytes % 12.7 %; Mean Corpuscular HGB Conc 30.7 g/dL (30-55); Mean Corpuscular Hemoglobin 30.9 pg (27-33); Mean Corpuscular Volume 100.8 fl (82-101); Monocytes # 0.7 10^3/uL (0.2-0.9); Monocytes % 6.5 %; Neutrophils # 7.92 10^3/uL (1.8-7.7); Nucleated Red Blood Cells % 0 %; Platelet Count 252 10^3/cmm (157-399); Red Blood Count 5.21 10^6/uL (3.85-5.65); Red Cell Distribution Width 12.9 % (12.1-15.1); White Blood Count 10.02 10^3/uL (3.29-11.43)
[2023-07-05 23:54] LABS: Urine Appearance Clear (CLEAR); Urine Color Yellow (Yellow); pH Urine 5 (5-7)
[2023-07-05 23:55] LABS: Add Urine Microscopic? YES; Bacteria Urine TRACE /hpf; Bilirubin Urine 1+ (Negative); Blood Urine Trace (Negative); Glucose Urine UA Norm (Normal); Ketones Urine 1+ (Negative); Leukocyte Esterase Urine Negative (Negative); Mucus Urine 2+ /hpf; Nitrate Urine Negative (Negative); Protein Urine 3+ (Negative); RBC Urine 0-4 /hpf (0-2); Urobilinogen Urine 1 mg/dL (Negative)
[2023-07-05 23:56] LABS: Add Urine Culture? No
[2023-07-05 23:58] LABS: INR 1.06 (0.8-1.2); Partial Thromboplastin Time 33.5 SECONDS (23.9-36.7)
[2023-07-06] VITALS (45 sets, daily range): BP systolic 89–143; BP diastolic 59–81; PULSE 69–97; RESP 16–25; TEMP 36.6–38.6; O2SAT 91–100
[2023-07-06 00:01] LABS: D Dimer 0.39 ug/mLFEU (0-0.59)
[2023-07-06 00:02] LABS: Lactic Sepsis W/Reflex 1.5 mmol/L (0.5-2.2)
[2023-07-06 00:12] LABS: NT Pro B Type Natriuretic Pept 779 pg/mL (0-125); Procalcitonin 0.08 ng/mL (0-0.5)
[2023-07-06 00:23] LABS: Alanine Aminotransferase 8 U/L (0-41); Albumin Level 4.1 g/dL (3.5-5.2); Alkaline Phosphatase 94 U/L (40-130); Aspartate Amino Transferase 14 U/L (0-40); Blood Urea Nitrogen 20 mg/dL (8-23); Calcium 9.2 mg/dL (8.5-10.5); Carbon Dioxide 32 mmol/L (22-29); Chloride 101 mmol/L (98-107); Creatinine Clr Calc Pharmacy 108.1099; Globulin 3.2 g/dL (1.3-4.6); Glomerular Filtration Rate 96.7 mL/min (90-130); Glucose 153 mg/dL (65-115); Osmolality Calculated 302 mOsm/kg (285-295); Sodium 143 mmol/L (136-145); Total Bilirubin 0.5 mg/dL (0.15-1.2); Total Protein 7.3 g/dL (6.6-8.7)
[2023-07-06 00:24] LABS: Anion Gap 16.2 (5-19); Potassium 6.2 mmol/L (3.5-5.1)
--- NOTE | 2023-07-06 00:52 | P.HP_ITS ---
Providers/Chief Complaint 2 Admitting Physician: Pamela Ray MD Primary Care Provider: Ed Branch Chief Complaint: RESP. DISTRESS History of Present Illness Satish Jones is a 68 year old male with recurrent falls, history of alcohol abuse, recurrent admissions for Acute on chronic hypoxic hypercapnic respite failure suspected related to Untreated sleep apnea vs COPD not officially diagnosed due to lack of PFTs, h/o PE in March 2023 , however patient would not take anticoagulation due to history of recurrent falls at home including extensive facial injuries when he fell out of his recliner. On his previous admission overnight oximetry study was performed and BiPAP was recommended based on clinical evaluation, however eventually he did not meet criteria for the same. Patient presents to the emergency room today brought by his neighbor due to acute on chronic respiratory failure. Patient was found today to have severe respiratory distress, being unresponsive, he received ilf-acshl-hcao ventilation and route to the emergency room and was intubated emergently upon arrival. It is not known at this time if he has recently been having any fever chills cough or expectoration worsened over baseline. He was discharged from the hospital last on May 25, 2023 after treatment for acute on chronic hypoxic hypercapnic respiratory failure and CHF exacerbation. Inhalers were optimized presumed COPD. Patient has longstanding lower extremity lymphedema. He was hypotensive post intubation which required starting low dose nor epinephrine. Review of Systems 2 General: Reports: ROS unobtainable due to medical condition and ROS unobtainable due to mental status Medications/Allergies Home Medications Medication Instructions Recorded Confirmed Last Taken Type acetaminophen 500 mg tablet 1,000 mg PO Q6H PRN Pain 01/04/23 05/23/23 Unknown History albuterol sulfate 90 mcg/actuation 2 puff inhalation Q6H PRN 01/04/23 05/23/23 Unknown History aerosol inhaler Shortness Of Breath aspirin 81 mg tablet,delayed 81 mg PO QAM 01/04/23 05/23/23 05/23/23 History release amlodipine 10 mg tablet 10 mg PO DAILY 04/15/23 05/23/23 05/23/23 History bumetanide 1 mg tablet 2 mg PO BID 05/23/23 05/23/23 05/23/23 History furosemide 40 mg tablet 40 mg PO BID 05/23/23 05/23/23 05/23/23 History pantoprazole 40 mg tablet,delayed 40 mg PO DAILY 05/23/23 05/23/23 05/23/23 History release fluticasone 500 mcg-salmeterol 50 1 inh inhalation BID #60 ea 05/25/23 Unknown Rx mcg/dose blistr powdr for inhalation (Advair Diskus) thiamine HCl (vitamin B1) 100 mg 100 mg PO DAILY #30 tabs 05/25/23 Unknown Rx tablet Allergies Allergy/AdvReac Type Severity Reaction Status Date / Time No Known Allergies Allergy Verified 07/05/23 23:33 PFSH Acute 2 PFSH: Medical History Prostate cancer Pulmonary embolism Surgical History Hx of colonoscopy May 2022, polyps found Status post colonoscopy H/O prostatectomy History of umbilical hernia repair Social History Smoking and tobacco/nicotine status: current some day tobacco/nicotine user Alcohol intake: former Marital status: Single Current occupational status: retired Vitals/I&O/Wt Last Vital Signs Temp 97.9 F 07/06/23 00:23 Pulse 82 07/06/23 00:23 Resp 16 07/06/23 00:23 BP 94/67 07/06/23 00:23 Pulse Ox 94 07/06/23 00:23 O2 Del Method Ambu-Bag 07/05/23 22:50 FiO2 80 07/05/23 23:23 07/05/23 07/05/23 07/06/23 14:59 22:59 06:59 Intake Total 1008.632 / 1008.632 Balance 1008.632 / 1008.632 Weight last 48 hrs Weight 104.326 kg Physical Exam 2 Narrative: General: intubated, sedated HEENT: PERRLA, pupils bilaterally equal and reactive, pallors not present Chest: Normal vesicular breath sounds, no added sounds, equal good air entry bilaterally CVS: S1-S2 regular, no murmurs, no tachycardia, no gallops, no rubs Abdomen: Soft, nontender, no organomegaly, bowel sounds present Neuro: intubated, sedated Extremities: B/L LE chronic stasis, dry flaky skin with chronic lymphedema Urinary Catheter Management: Jeffery: Cath Placed During This Visit: yes Urinary Catheter Date of Insertion: 07/05/23 Urinary Catheter Time of Insertion: 23:30 Data 07/05/23 23:30 07/05/23 23:30 ABG Interpretation 1: 07/05/23 22:50 ABG pH 7.09 L* ABG pCO2 121.0 H* ABG pO2 231.0 H ABG HCO3 36.6 H ABG O2 Saturation > 100.0 ABG Base Excess 1.4 Other data: Radiology Impressions Chest X-Ray 07/05/23 23:02 IMPRESSION: 1. Endotracheal tube in satisfactory position. 2. No focal consolidation, with lung hypoinflation somewhat limiting evaluation. 3. Gaseous distention of the stomach and dilated gas-filled loop of large bowel in the upper abdomen. Laboratory Results WBC 10.02 10^3/uL (3.29-11.43) 07/05/23 23:30 RBC 5.21 10^6/uL (3.85-5.65) 07/05/23 23:30 Hgb 16.10 g/dL (11.27-16.99) 07/05/23 23:30 Hct 52.5 % (37-53) 07/05/23 23:30 MCV 100.8 fl (82-101) 07/05/23 23:30 MCH 30.9 pg (27-33) 07/05/23 23:30 MCHC 30.7 g/dL (30-55) 07/05/23 23:30 RDW 12.9 % (12.1-15.1) 07/05/23 23:30 Plt Count 252 10^3/cmm (157-399) 07/05/23 23:30 MPV 9.0 fL (7.4-10.4) 07/05/23 23:30 Neut % (Auto) 79.0 % 07/05/23 23:30 Lymph % (Auto) 12.7 % 07/05/23 23:30 [place] % (Auto) 6.5 % 07/05/23 23:30 Eos % (Auto) 0.1 % 07/05/23 23:30 Baso % (Auto) 0.8 % 07/05/23 23:30 Neut # (Auto) 7.92 10^3/uL (1.8-7.7) H 07/05/23 23:30 Lymph # (Auto) 1.3 10^3/uL (0.8-4.8) 07/05/23 23:30 [place] # (Auto) 0.7 10^3/uL (0.2-0.9) 07/05/23 23:30 Eos # (Auto) 0.0 10^3/uL (0.0-0.8) 07/05/23 23:30 Baso # (Auto) 0.1 10^3/uL (0.0-0.1) 07/05/23 23:30 Nucleated RBC % (auto) 0 % 07/05/23 23:30 Nucleated RBCs # 0.0 /100WBC 07/05/23 23:30 PT 14.10 SECONDS (12.1-14.9) 07/05/23 23:30 INR 1.06 (0.8-1.2) 07/05/23 23:30 APTT 33.5 SECONDS (23.9-36.7) 07/05/23 23:30 D-Dimer 0.39 ug/mLFEU (0-0.59) 07/05/23 23:30 Specimen Type Arterial 07/05/23 22:50 Sample Site Radial, right 07/05/23 22:50 ABG pH 7.09 (7.35-7.45) L* 07/05/23 22:50 ABG pCO2 121.0 mmHg (35-45) H* 07/05/23 22:50 ABG pO2 231.0 mmHg (80.0-100.0) H 07/05/23 22:50 ABG HCO3 36.6 mmol/L (22-26) H 07/05/23 22:50 ABG O2 Saturation > 100.0 07/05/23 22:50 ABG Base Excess 1.4 mmol/L (-2.0-2.0) 07/05/23 22:50 Toro Test Pos 07/05/23 22:50 A-a O2 Gradient Not Reportable 07/05/23 22:50 Hematocrit 53.1 % (42-52) H 07/05/23 22:50 Hgb O2 Saturation 96.0 % (95-100) 07/05/23 22:50 Carboxyhemoglobin 4.2 %THgb (0.4-20.1) 07/05/23 22:50 Methemoglobin 0.2 % (0.4-1.5) L 07/05/23 22:50 Total Hemoglobin 17.3 g/dL (14-18) 07/05/23 22:50 Sodium 150.0 mmol/L (131-143) H 07/05/23 22:50 Potassium 3.8 mmol/L (3.5-5.0) 07/05/23 22:50 Glucose 159.0 mg/dL (70-115) H 07/05/23 22:50 Ionized Calcium 1.2 mmol/L (1.1-1.4) 07/05/23 22:50 O2 Delivery Device Ambu 07/05/23 22:50 O2 Liters/Min 15.0 % 07/05/23 22:50 Deaf/Hard Of Hearing Specialist ID Lele 07/05/23 22:50 Sodium 143 mmol/L (136-145) 07/05/23 23:30 Potassium 6.2 mmol/L (3.5-5.1) H 07/05/23 23:30 Chloride 101 mmol/L (98-107) 07/05/23 23:30 Carbon Dioxide 32 mmol/L (22-29) H 07/05/23 23:30 Anion Gap 16.2 (5-19) 07/05/23 23:30 BUN 20 mg/dL (8-23) 07/05/23 23:30 Creatinine 0.8 mg/dL (0.7-1.2) 07/05/23 23:30 GFR Calculation 96.7 mL/min (90-130) 07/05/23 23:30 Glucose 153 mg/dL (65-115) H 07/05/23 23:30 Calculated Osmolality 302 mOsm/kg (285-295) H 07/05/23 23:30 Lactic Acid 1.5 mmol/L (0.5-2.2) 07/05/23 23:30 Calcium 9.2 mg/dL (8.5-10.5) 07/05/23 23:30 Total Bilirubin 0.5 mg/dL (0.15-1.2) 07/05/23 23:30 AST 14 U/L (0-40) 07/05/23 23:30 ALT 8 U/L (0-41) 07/05/23 23:30 Alkaline Phosphatase 94 U/L (40-130) 07/05/23 23:30 NT-Pro-B Natriuret Pep 779 pg/mL (0-125) H 07/05/23 23:30 Total Protein 7.3 g/dL (6.6-8.7) 07/05/23 23:30 Albumin 4.1 g/dL (3.5-5.2) 07/05/23 23:30 Globulin 3.2 g/dL (1.3-4.6) 07/05/23 23:30 Procalcitonin 0.08 ng/mL (0-0.5) 07/05/23 23:30 Urine Color Yellow (Yellow) 07/05/23 23:30 Urine Appearance Clear (CLEAR) 07/05/23 23:30 Urine pH 5 (5-7) 07/05/23 23:30 Ur Specific [place] 1.030 (1.005-1.030) 07/05/23 23:30 Urine Protein 3+ (Negative) H 07/05/23 23:30 Urine Glucose (UA) Norm (Normal) 07/05/23 23:30 Urine Ketones 1+ (Negative) H 07/05/23 23:30 Urine Blood Trace (Negative) H 07/05/23 23:30 Urine Nitrate Negative (Negative) 07/05/23 23:30 Urine Bilirubin 1+ (Negative) H 07/05/23 23:30 Urine Urobilinogen 1 mg/dL (Negative) H 07/05/23 23:30 Ur Leukocyte Esterase Negative (Negative) 07/05/23 23:30 Urine RBC 0-4 /hpf (0-2) H 07/05/23 23:30 Urine WBC None /hpf (0-5) 07/05/23 23:30 Ur Squamous Epith Cells None /hpf (0-5) 07/05/23 23:30 Amorphous Sediment Not Reportable 07/05/23 23:30 Urine Bacteria Trace /hpf (NONE) 07/05/23 23:30 Urine Mucus 2+ /hpf 07/05/23 23:30 SARS-CoV-2 Ag (Rapid) negative (Negative) 07/06/23 01:05 A&P Assessment and plan (1) Acute respiratory failure with hypoxia and hypercapnia: Patient presenting today with acute on chronic hypoxic hypercapnic respiratory failure. At baseline he is supposed to be on 3 L/min supplemental O2. Recent admission in April 2023 for hypercapnic respiratory failure suspected related to underlying sleep apnea versus COPD. Similar differentials today Patient intubated immediately upon arrival today due to respiratory distress. Continue mechanical ventilation. ABG suggestive of respiratory acidosis. Repeat with a.m. labs Start treatment with duoneb q6h, budesonide q12h IV methylprednisolone 40 mg every 8 hours Chest x-ray without gross consolidation empiric levofloxacin 750 mg daily Check COVID antigen and influenza antigen Less likely PE given negative D-dimer Check Pro-Rashaun Currently appearing to be clinically dry, hold Bumex Levophed needed to be initiated and started propofol infusion. Minimal requirement between 2-4 mics currently. Attempt to wean down maintaining a MAP goal of 65. Patient is currently afebrile, has no leukocytosis, normal lactate, low suspicion for sepsis at this point (2) COPD exacerbation: Management as above (3) Hyperkalemia: Potassium currently at 6.2. Insulin dextrose, albuterol inhalation, repeat with with these interventions. No acute ST-T wave changes on EKG (4) Altered mental status: Likely related to hypercapnia. Plan DVT prophylaxis: Lovenox 40 mg subcutaneous daily Full code Attestations 2 Medical Necessity Statement*: Greater than 2 midnight admission is anticipated for acute on chronic respiratory failure requiring mechanical ventilation Critical Care Time: The high probability of a clinically significant, sudden or life threatening deterioration of the patient's [respiratory] system(s) required my full and direct attention, intervention and personal management. The critical care time is as shown. This time is in addition to time spent performing any reported procedures but includes the following: [x] Data and vital sign review and interpretation [x] Patient assessment, examination and intervention [x] Documentation [x] Medication orders and management Critical Care Time (min): 45 Coding Level of Care Code Critical Care >/= 30 minutes Diagnoses Acute respiratory failure with hypoxia and hypercapnia J96.01; J96.02 COPD exacerbation J44.1 Hyperkalemia E87.5 Altered mental status R41.82
[2023-07-06] MEDS: levofloxacin-dextrose 5 % 750 MG/150 ML PREMIX 100 MG IV (01:19)
[2023-07-06] MEDS: enoxaparin 40 mg/0.4 mL Syringe SUBCUT (01:19)
[2023-07-06] MEDS: fentaNYL 1,000 MCG/100 ML BAG 2.5 MCG IV (01:19)
[2023-07-06 01:28] LABS: SARS Covid-2 Antigen negative (Negative)
[2023-07-06] MEDS: methylPREDNISolone sod succ 40 mg SDV IVP (01:35)
[2023-07-06] MEDS: ipratropium-albuterol 3 mL Neb INHALATION ×4 (02:09→19:46)
[2023-07-06 02:55] LABS: Alcohol Level < 10 mg/dL (0-10)
[2023-07-06] MEDS: dextrose 50% syringe 50 mL IVP (03:04)
[2023-07-06] MEDS: insulin regular-human 10 UNIT in SYRINGE 1 EACH 100 UNIT IVP (03:05)
[2023-07-06 03:22] LABS: Influenza A by IFA negative (Negative); Influenza B by IFA negative (Negative)
[2023-07-06 03:39] LABS: ABG PCO2 54.2 mmHg (35-45); ABG PH Result 7.41 (7.35-7.45); Arterial Blood Gas Hematocrit 46.4 % (42-52); Base Excess ABG 7.7 mmol/L (-2.0-2.0); Blood Gas Allen Test Pos; Blood Gas Operator Identificat JB; Blood Gas Sample Site Radial, right; Blood Gas Sample Type Arterial; HCO3 ABG 34.3 mmol/L (22-26); PO2 ABG 73.8 mmHg (80.0-100.0)
[2023-07-06 03:40] LABS: Oxygen Device VENT; PO2 FiO2 Ratio Arterial Blood 0
[2023-07-06] MEDS: propofol 1,000 MG/100 ML INJ 25 MG IV (03:59)
[2023-07-06 05:28] LABS: Troponin T (5th) Once 99 ng/L (0-15)
[2023-07-06 05:52] LABS: Procalcitonin 0.08 ng/mL (0-0.5)
[2023-07-06 06:13] LABS: C Reactive Protein 6.4 mg/L (0.0-4.9); Potassium 3.8 mmol/L (3.5-5.1)
[2023-07-06] MEDS: methylPREDNISolone sod succ 40 mg/mL INJ IVP ×2 (08:40→17:56)
[2023-07-06] MEDS: budesonide 0.5 mg/2 mL Neb INHALATION ×2 (08:43→19:46)
[2023-07-06] MEDS: ammonium lactate lotion 226 gm Btl 1 APPLIC TOPICAL ×2 (08:48→18:02)
[2023-07-06] MEDS: propofol 1,000 MG/100 ML INJ 30 MG IV (09:47)
--- NOTE | 2023-07-06 12:20 | XRR_ITS ---
PROCEDURE INFORMATION: Exam: XR Abdomen Exam date and time: 07/06/2023 12:38 PM Age: 68 years old Clinical indication: Device placement; Ng tube; Additional info: Ng tube verification TECHNIQUE: Imaging protocol: Radiologic exam of the abdomen. Views: Frontal supine view of the abdomen. 1 View. COMPARISON: CR (CHEST, ) 07/05/2023 11:05 PM FINDINGS: Tubes, catheters and devices: It does demonstrate a NG tube extending into the stomach. Side hole is at the level anticipated for the distal esophagus. Lungs: A minimal portion of the lower chest is included in the field of view with possible atelectasis in the medial right lower lobe. Gastrointestinal tract: Moderate amount of gas present in the visualized colon without evidence of significant gaseous distention of bowel. Intraperitoneal space: Examination is centered on the upper abdomen, and excludes the lower pelvis in the portion of the left sided upper abdomen. Bones/joints: Scattered degenerative changes are noted. XR/XR chest 1V portable [id number] IMPRESSION: NG tube in stomach as described above.
[2023-07-06] MEDS: pantoprazole 40 mg SDV IVP (12:31)
[2023-07-06] MEDS: vancomycin 1,500 MG/300 ML PIGGYBACK 200 MG IV (12:34)
[2023-07-06] MEDS: piperacillin-tazobactam 3.375 GM in sodium chloride 0.9% (plus) 50 ML IV ×2 (12:37→19:32)
[2023-07-06 12:51] LABS: Alanine Aminotransferase 7 U/L (0-41); Albumin Level 3.6 g/dL (3.5-5.2); Alkaline Phosphatase 81 U/L (40-130); Aspartate Amino Transferase 11 U/L (0-40); Blood Urea Nitrogen 22 mg/dL (8-23); Calcium 9.3 mg/dL (8.5-10.5); Carbon Dioxide 28 mmol/L (22-29); Chloride 103 mmol/L (98-107); Globulin 2.9 g/dL (1.3-4.6); Glomerular Filtration Rate 96.7 mL/min (90-130); Glucose 138 mg/dL (65-115); Osmolality Calculated 302 mOsm/kg (285-295); Sodium 143 mmol/L (136-145); Total Bilirubin 0.9 mg/dL (0.15-1.2); Total Protein 6.5 g/dL (6.6-8.7)
[2023-07-06 12:53] LABS: Anion Gap 15.7 (5-19); Potassium 3.7 mmol/L (3.5-5.1)
[2023-07-06] MEDS: propofol 1,000 MG/100 ML INJ 35 MG IV (12:58)
[2023-07-06 13:04] LABS: Procalcitonin 0.08 ng/mL (0-0.5); Vitamin B12 221 pg/mL (232-1245)
--- NOTE | 2023-07-06 14:10 | PC.NURSE ---
X ray shows OG tube at the distal esophagus. NUrse advanced OG tube by about 2 inches. Ordered new Xray for verification
--- NOTE | 2023-07-06 14:11 | XRR_ITS ---
PROCEDURE INFORMATION: Exam: XR Chest Exam date and time: 07/06/2023 2:17 PM Age: 68 years old Clinical indication: Device placement; Other: Og tube placement TECHNIQUE: Imaging protocol: Radiologic exam of the chest. Views: 1 view. COMPARISON: CR (CHEST, ) 07/05/2023 11:05 PM FINDINGS: Tubes, catheters and devices: NG tube enters the stomach, side hole is at approximately the GE junction. The endotracheal tube projects well above nita. Lungs: The lung apices are excluded from the field of view. Bibasilar pulmonary densities may relate to atelectasis. Pleural spaces: No pleural effusion identified. Heart/Mediastinum: The heart is not enlarged. The mediastinum is not enlarged. Diaphragm: There is slight elevation right hemidiaphragm unchanged. Bones/joints: No acute osseous abnormality identified. Gastrointestinal tract: The visualized bowel gas pattern is nonobstructive appearing. XR/XR chest 1V portable [id number] IMPRESSION: NG tube projects in stomach.
[2023-07-06 14:31] LABS: Basophils % 0.1 %; Hematocrit 47.8 % (37-53); Lymphocytes # 0.8 10^3/uL (0.8-4.8); Mean Corpuscular HGB Conc 32.8 g/dL (30-55); Mean Corpuscular Hemoglobin 31.1 pg (27-33); Mean Corpuscular Volume 94.7 fl (82-101); Monocytes # 0.3 10^3/uL (0.2-0.9); Monocytes % 3.5 %; Neutrophils # 7.75 10^3/uL (1.8-7.7); Neutrophils % 86.8 %; Nucleated Red Blood Cells % 0 %; Platelet Count 244 10^3/cmm (157-399); Red Blood Count 5.05 10^6/uL (3.85-5.65); Red Cell Distribution Width 12.9 % (12.1-15.1); White Blood Count 8.92 10^3/uL (3.29-11.43)
--- NOTE | 2023-07-06 14:45 | P.PN_ITS ---
Subjective 2 Subjective: Admitted overnight, H&P and labs appreciated. Today morning patient seen while intubated, currently on 40% FiO2, tidal volume of 500, PEEP of 8 saturating more than 95%. Good tidal volumes. Tmax of 101.5 during examination. Has remained hemodynamically stable and afebrile. Urine output of around 400 cc since admission. Vitals/I&O/Wt Last Vital Signs Temp 101.5 F H 07/06/23 12:00 Pulse 97 07/06/23 14:00 Resp 16 07/06/23 13:39 BP 141/75 07/06/23 14:00 Pulse Ox 94 07/06/23 13:39 O2 Del Method Mechanical Ventilation 07/06/23 13:38 FiO2 40 07/06/23 13:39 07/05/23 07/06/23 07/06/23 22:59 06:59 14:59 Intake Total 1251.156 / 1251.156 200 / 200 Output Total 250 / 250 200 / 200 Balance 1001.156 / 1001.156 0 / 0 Weight last 48 hrs Weight 110.767 kg Weight 115.757 kg Weight 104.326 kg Physical Exam 2 Narrative: General: Intubated, sedated HEENT: PERRLA, pupils bilaterally equal and reactive Chest: Bilateral bronchial breath sounds with occasional rhonchi all over lung pineda, coarse Giurgius present in right lower zone CVS: S1-S2 regular, no murmurs, no tachycardia, no gallops, no rubs Abdomen: Soft, nontender, no organomegaly, bowel sounds present, morbidly obese Neuro: No focal deficits, no facial deformity, Urinary Catheter Management: Jeffery: Cath Placed During This Visit: yes Reason for Continuing Indwelling Catheter: Accurate Measurement of Urinary Output in Critically Ill Patients Urinary Catheter Date of Insertion: 07/05/23 Urinary Catheter Time of Insertion: 23:30 Data 07/05/23 23:30 07/06/23 12:06 A&P Assessment and plan (1) Acute respiratory failure with hypoxia and hypercapnia: Acute on chronic hypoxic and hypercapnic respiratory failure secondary to COPD exacerbation. Patient does have history of PE in the past not on anticoagulation because of increased risk of falls. Currently intubated. Also has history of congestive systolic heart failure with last known EF 48% with diffusely hypokinetic RV wall. COVID antigen, flu swab negative, D-dimer negative. Appreciate chest x-ray results. DuoNebs every 4 hours, Pulmicort twice daily Continue with Solu-Medrol 40 mg every 8 hours. Continue sedation with propofol and fentanyl. Sedation medication daily. Plan for decreasing sedation in a.m. tomorrow with possibility of extubation. Repeat chest x-ray and ABG in AM. Follow-up blood culture, sputum culture. Patient did have 1 episode of high-grade fever today morning. Pro-Rashaun negative, no leukocytosis. For now given mechanical ventilation we will broaden coverage to IV vancomycin and Zosyn. Check MRSA swab. Continue antibiotics till sputum culture or blood culture results are finalized. Patient seems euvolemic for now. Patient is able to systolic congestive heart failure. Currently NPO. Start on normal saline with gentle IV hydration at 50 cc/h. Keep mean over pressure 65. (2) COPD exacerbation: Management as above (3) Hyperkalemia: Resolved. (4) Altered mental status: Likely related to hypercapnia. Will monitor further with sedation medication. Plan N.p.o. Protonix for PUD prophylaxis DVT prophylaxis: Lovenox 40 mg subcutaneous daily Full code Attestations 2 Medical Necessity Statement*: Requires further hospitalization for management of acute on chronic hypoxic and hypercapnic respiratory failure requiring mechanical ventilation secondary COPD exacerbation, possible pneumonia Critical Care Time: The high probability of a clinically significant, sudden or life threatening deterioration of the patient's [pulmonary, cardiac, ID] system(s) required my full and direct attention, intervention and personal management. The critical care time is as shown. This time is in addition to time spent performing any reported procedures but includes the following: [x] Data and vital sign review and interpretation [x] Patient assessment, examination and intervention [x] Documentation [x] Medication orders and management Critical Care Time (min): 80 Coding Level of Care Code Critical Care >/= 30 minutes Critical care time (in minutes): 80 The high probability of a clinically significant, sudden or life threatening deterioration, as referenced in this documentation, required my full and direct attention, intervention and personal management. The critical care time shown is in addition to time spent performing any reported separately billable procedures and includes the following: [x] Data and vital sign review and interpretation [x ] Patient assessment, examination and intervention [x] Medication orders and management [x] Patient/Family updates as able [x] Care Coordination and Documentation. Other Coding Information This patient has a high probability of clinically significant, sudden or life threatening deterioration of the patient's (neurological/pulmonary/cardiac/renal/ID/endocrine) systems required my full, direct attention, the highest level of physician preparedness for urgent intervention and personal management. I managed/supervised life or organ supporting interventions that required frequent physician assessment. I devoted my full attention in the ICU to the direct care of this patient for the period of time indicated above. Time I spent with family or surrogate(s) is included only if the patient was incapable of providing necessary information or participating in decision making. This time includes the following services provided: Telemetry review Mechanical Ventilation Hemodynamic interpretation, assessment and management Review and interpretation of CXR Review and interpretation of lab values Review and interpretation of microbiologic data and culture results Review of medications and administration Review and interpretation of Nutrition requirements and management Discussion of management with other consultants and services Clinical update to family members Diagnoses Acute respiratory failure with hypoxia and hypercapnia J96.01; J96.02 COPD exacerbation J44.1 Hyperkalemia E87.5 Altered mental status R41.82
[2023-07-06] MEDS: sodium chloride 0.9% 1,000 ML 50 ML IV (15:25)
[2023-07-06] MEDS: cyanocobalamin 1,000 mcg/mL SDV 1000 MCG IM (15:27)
[2023-07-06] MEDS: acetaminophen 325 mg Tablet PO (15:29)
[2023-07-06 16:45] LABS: Glucose Point of Care 136 mg/dL (70-110)
[2023-07-06] MEDS: propofol 1,000 MG/100 ML INJ 25.04 MG IV (18:02)
[2023-07-06 18:33] LABS: ABG PCO2 43.8 mmHg (35-45); ABG PH Result 7.46 (7.35-7.45); Arterial Blood Gas Hematocrit 48.4 % (42-52); Base Excess ABG 6.5 mmol/L (-2.0-2.0); Blood Gas Allen Test Pos; Blood Gas Sample Type Arterial; HCO3 ABG 31.3 mmol/L (22-26); HGB O2 Sat 94.8 % (95-100); Ionized Calcium Level - ABG 1.2 mmol/L (1.1-1.4); Methemoglobin 0.1 % (0.4-1.5); Oxygen Saturation ABG 95.9; PO2 ABG 69.5 mmHg (80.0-100.0); Potassium Level - ABG 3.5 mmol/L (3.5-5.0); Total Hemoglobin 15.8 g/dL (14-18)
[2023-07-06 18:34] LABS: Alveolar-Arterial Oxygen Gradi 20.4 mmHg (5-10); Blood Gas Operator Identificat GD; Blood Gas Sample Site Radial, right; Oxygen Device VENT; PO2 FiO2 Ratio Arterial Blood 0
--- NOTE | 2023-07-06 18:52 | PC.NURSE ---
Shift Summary: Uneventful shift. patient rested in bed throughout the day. THis morning sedation was reduced for neuro assessments and patient was able to shake head yes/no to questions, squeeze hands to commands, will track nurse with eyes, attempted to speak. Sedation increased back up due to increasing agitation. Fever as high as 101.5 which was treated with tylenol. Low urine output: 400mL throughout shift (0.30 ml/kg/hr), physician aware and fluid started at 50ml/hr.
[2023-07-06] MEDS: fentaNYL 1,000 MCG/100 ML BAG 5 MCG IV (19:25)
[2023-07-06] MEDS: propofol 1,000 MG/100 ML INJ 31.3 MG IV (20:11)
[2023-07-07] VITALS (36 sets, daily range): BP systolic 121–181; BP diastolic 62–110; PULSE 71–94; RESP 10–24; TEMP 36.5–37.4; O2SAT 90–97
[2023-07-07] MEDS: propofol 1,000 MG/100 ML INJ 31.3 MG IV ×2 (00:06→03:06)
[2023-07-07] MEDS: enoxaparin 40 mg/0.4 mL Syringe SUBCUT (01:08)
[2023-07-07] MEDS: methylPREDNISolone sod succ 40 mg/mL INJ IVP ×3 (01:09→16:40)
[2023-07-07] MEDS: ipratropium-albuterol 3 mL Neb INHALATION ×4 (03:34→19:54)
[2023-07-07] MEDS: piperacillin-tazobactam 3.375 GM in sodium chloride 0.9% (plus) 50 ML IV ×3 (03:48→20:15)
[2023-07-07 04:30] LABS: Basophils % 0.1 %; Eosinophils # 0.1 10^3/uL (0.0-0.8); Eosinophils % 0.5 %; Hematocrit 46.7 % (37-53); Lymphocytes # 0.8 10^3/uL (0.8-4.8); Lymphocytes % 5.4 %; Mean Corpuscular HGB Conc 32.8 g/dL (30-55); Mean Corpuscular Hemoglobin 31.1 pg (27-33); Mean Corpuscular Volume 94.9 fl (82-101); Mean Platelet Volume 9.5 fL (7.4-10.4); Monocytes % 6.6 %; Neutrophils % 86.6 %; Nucleated Red Blood Cells % 0.1 %; Platelet Count 305 10^3/cmm (157-399); Red Blood Count 4.92 10^6/uL (3.85-5.65); White Blood Count 14.55 10^3/uL (3.29-11.43)
[2023-07-07 05:28] LABS: ABG PH Result 7.45 (7.35-7.45); Alveolar-Arterial Oxygen Gradi 18.8 mmHg (5-10); Arterial Blood Gas Hematocrit 50.8 % (42-52); Base Excess ABG 6.2 mmol/L (-2.0-2.0); Blood Gas Allen Test Pos; Blood Gas Operator Identificat JB; Blood Gas Sample Site Radial, right; Blood Gas Sample Type Arterial; Carboxyhemoglobin 0.9 %THgb (0.4-20.1); HCO3 ABG 31.3 mmol/L (22-26); HGB O2 Sat 95.9 % (95-100); Ionized Calcium Level - ABG 1.2 mmol/L (1.1-1.4); Methemoglobin 0.2 % (0.4-1.5); Oxygen Device VENT; PO2 ABG 82.3 mmHg (80.0-100.0); PO2 FiO2 Ratio Arterial Blood 0; Potassium Level - ABG 3.3 mmol/L (3.5-5.0); Total Hemoglobin 16.6 g/dL (14-18)
--- NOTE | 2023-07-07 06:00 | XR_ITS ---
WS: [id number] XR chest 1V portable [id number] REASON FOR EXAM: intubated FINDINGS: Nasogastric tube and endotracheal tube remain in proper position. Minimal interstitial lung opacities in the lung bases are unchanged. The lung pineda are otherwise clear. No other interval change or new finding. IMPRESSION: Stable chest as above.
[2023-07-07] MEDS: propofol 1,000 MG/100 ML INJ 18.78 MG IV (06:38)
[2023-07-07 07:34] LABS: Glucose Point of Care 148 mg/dL (70-110)
[2023-07-07] MEDS: budesonide 0.5 mg/2 mL Neb INHALATION ×2 (07:48→19:54)
[2023-07-07 08:02] LABS: Folate Level 7.8 ng/mL (4.5-32.2)
[2023-07-07 08:16] LABS: Alanine Aminotransferase < 5 U/L (0-41); Albumin Level 3.3 g/dL (3.5-5.2); Alkaline Phosphatase 71 U/L (40-130); Anion Gap 11.5 (5-19); Aspartate Amino Transferase 7 U/L (0-40); Blood Urea Nitrogen 29 mg/dL (8-23); Calcium 9.3 mg/dL (8.5-10.5); Carbon Dioxide 30 mmol/L (22-29); Chloride 104 mmol/L (98-107); Globulin 2.9 g/dL (1.3-4.6); Glomerular Filtration Rate 112.8 mL/min (90-130); Glucose 168 mg/dL (65-115); Osmolality Calculated 304 mOsm/kg (285-295); Potassium 3.5 mmol/L (3.5-5.1); Sodium 142 mmol/L (136-145); Total Bilirubin 0.8 mg/dL (0.15-1.2); Total Protein 6.2 g/dL (6.6-8.7)
[2023-07-07] MEDS: pantoprazole 40 mg SDV IVP (08:27)
[2023-07-07] MEDS: aspirin 81 mg EC Tablet PO (08:27)
[2023-07-07] MEDS: cyanocobalamin 1,000 mcg/mL SDV 1000 MCG IM (08:28)
[2023-07-07] MEDS: ammonium lactate lotion 226 gm Btl 1 APPLIC TOPICAL ×2 (08:28→20:17)
[2023-07-07 11:16] LABS: Glucose Point of Care 144 mg/dL (70-110)
--- NOTE | 2023-07-07 11:20 | PC.NURSE ---
Upon morning assessment, sedation was reduced from 30mcg of propofol to 25 to better asses mental status. Shortly after, patient able to follow commands, seems to understand when it is explained why he is here, Is mouthing the words get it out and pointing to the ET tube. When not stimulated patient remains calm and appears comfortably sleeping. Leaving lower sedation levels to allow sedation vacation.
[2023-07-07] MEDS: vancomycin 1,500 MG/300 ML PIGGYBACK 200 MG IV ×2 (12:17→23:46)
[2023-07-07] MEDS: sodium chloride 0.9% 1,000 ML 50 ML IV (12:24)
--- NOTE | 2023-07-07 14:46 | PM.PN ---
Subjective Subjective: No acute vents overnight. Patient has remained hemodynamically stable and afebrile. Today morning seen on 20 of propofol and 20 of fentanyl. Patient is sedated but arousable. Following commands. Patient was later extubated to 3 L nasal cannula at around 2:30 PM. Patient tolerated procedure well. 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 Vitals/I&O/Wt Last Vital Signs Temp 99.4 F 07/07/23 13:00 Pulse 78 07/07/23 14:22 Resp 11 L 07/07/23 14:18 BP 155/90 07/07/23 14:00 Pulse Ox 95 07/07/23 14:18 O2 Del Method Mechanical Ventilation 07/07/23 14:00 FiO2 35 07/07/23 14:18 07/06/23 07/07/23 07/07/23 22:59 06:59 14:59 Intake Total 582.586 / 782.586 406.15 / 8728.593 5472.040 / 1146.040 Output Total 200 / 400 450 / 850 275 / 275 Balance 382.586 / 382.586 -43.85 / 338.736 871.040 / 871.040 Weight last 48 hrs Weight 111.765 kg Weight 110.767 kg Weight 115.757 kg Weight 104.326 kg Physical Exam Narrative: General: Intubated, sedated but arousable, following commands HEENT: PERRLA, pupils bilaterally equal and reactive Chest: Bilateral bronchial breath sounds with occasional rhonchi all over lung pineda, coarse Giurgius present in right lower zone CVS: S1-S2 regular, no murmurs, no tachycardia, no gallops, no rubs Abdomen: Soft, nontender, no organomegaly, bowel sounds present, morbidly obese Neuro: No focal deficits, no facial deformity, Urinary Catheter Management: Jeffery: Cath Placed During This Visit: yes Reason for Continuing Indwelling Catheter: Accurate Measurement of Urinary Output in Critically Ill Patients Urinary Catheter Date of Insertion: 07/05/23 Urinary Catheter Time of Insertion: 23:30 Data 07/07/23 03:58 07/07/23 07:42 A&P Assessment and plan (1) Acute respiratory failure with hypoxia and hypercapnia: Acute on chronic hypoxic and hypercapnic respiratory failure secondary to COPD exacerbation. Patient does have history of PE in the past not on anticoagulation because of increased risk of falls. Extubated 07/07 Also has history of congestive systolic heart failure with last known EF 48% with diffusely hypokinetic RV wall. COVID antigen, flu swab negative, D-dimer negative. Appreciate chest x-ray results. DuoNebs every 4 hours, Pulmicort twice daily Continue with Solu-Medrol 40 mg every 8 hours. Follow-up blood culture, sputum culture. MRSA swab pending. For now continue with IV vancomycin and Zosyn. Will plan to continue antibiotics for overall 5 days. If MRSA is negative will stop vancomycin. If patient remains hemodynamically stable and afebrile will plan to switch to oral antibiotics. Patient seems euvolemic for now. Patient is able to systolic congestive heart failure. Continue with normal saline with gentle IV hydration at 50 cc/h. Plan for bedside nursing swallow evaluation. Advance diet accordingly. Keep mean over pressure 65. (2) COPD exacerbation: Management as above (3) Hyperkalemia: Resolved. (4) Altered mental status: Likely related to hypercapnia. Will monitor further with sedation medication. Plan Hypertension: Goal blood pressure less than 140/90 mmHg. Once extubated will start back on home dose of amlodipine. N.p.o. Protonix for PUD prophylaxis DVT prophylaxis: Lovenox 40 mg subcutaneous daily Full code Attestations Medical Necessity Statement*: Requires further hospitalization for management of hypoxic and hypercapnic respiratory failure in setting of COPD exacerbation, extubation Critical Care Time: The high probability of a clinically significant, sudden or life threatening deterioration of the patient's [pulmonary, mechanical ventilation] system(s) required my full and direct attention, intervention and personal management. The critical care time is as shown. This time is in addition to time spent performing any reported procedures but includes the following: [x] Data and vital sign review and interpretation [x] Patient assessment, examination and intervention [x] Documentation [x] Medication orders and management Critical Care Time (min): 60 Coding Level of Care Code Critical Care >/= 30 minutes Critical care time (in minutes): 60 The high probability of a clinically significant, sudden or life threatening deterioration, as referenced in this documentation, required my full and direct attention, intervention and personal management. The critical care time shown is in addition to time spent performing any reported separately billable procedures and includes the following: [x] Data and vital sign review and interpretation [x] Patient assessment, examination and intervention [x] Medication orders and management [x] Patient/Family updates as able [x] Care Coordination and Documentation. Other Coding Information This patient has a high probability of clinically significant, sudden or life threatening deterioration of the patient's (neurological/pulmonary/cardiac/renal/ID/endocrine) systems required my full, direct attention, the highest level of physician preparedness for urgent intervention and personal management. I managed/supervised life or organ supporting interventions that required frequent physician assessment. I devoted my full attention in the ICU to the direct care of this patient for the period of time indicated above. Time I spent with family or surrogate(s) is included only if the patient was incapable of providing necessary information or participating in decision making. This time includes the following services provided: Telemetry review Mechanical Ventilation Hemodynamic interpretation, assessment and management Review and interpretation of CXR Review and interpretation of lab values Review and interpretation of microbiologic data and culture results Review of medications and administration Review and interpretation of Nutrition requirements and management Discussion of management with other consultants and services Clinical update to family members Diagnoses Acute respiratory failure with hypoxia and hypercapnia J96.01; J96.02 COPD exacerbation J44.1 Hyperkalemia E87.5 Altered mental status R41.82
[2023-07-07 15:39] LABS: Methicillin-Resist S.aureu PCR NOT DETECTED (NOT DETECTED)
--- NOTE | 2023-07-07 15:49 | PC.NURSE ---
Patient extubated at 1427 to 3L nasal cannula. Patient is alert, oriented to current place and time, but no memory of events leading up to hospitalization.
--- NOTE | 2023-07-07 15:50 | PC.NURSE ---
Patient passed bedside swallow evaluation, alerted physician, awaiting updated diet and/or speech therapy orders.
[2023-07-07 17:07] LABS: Glucose Point of Care 122 mg/dL (70-110)
--- NOTE | 2023-07-07 19:31 | PC.NURSE ---
SHift SUmmary: Uneventful shift. Patient rested in bed throughout the day. Was extubated to 3L nasal cannula at 1430. Extubation was uneventful. Afterwards patient passed bedside swallow eval and advanced to full liquid diet. Total urine output has been 550 ml for shift. BIPAP at night has been ordered.
--- NOTE | 2023-07-07 20:01 | PC.NURSE ---
Addendum entered by Christie Varma RN 07/07/23 23:38: Waste of propofol and fentanyl witnessed with MIGUEL Vasquez Original Note: Wasted Medications: Remaining Propfolol and Fentanyl, 10mls each, wasted with MIGUEL Zhu.
--- NOTE | 2023-07-07 23:36 | PC.NURSE ---
Addendum entered by Christina Pop RN 07/08/23 00:08: New order for Hydralazine 5mg IVP Q6H PRN for SBP greater than 160. Original Note: High BP: Notified Dr. Ray of high BP and no BP meds on board @6139. No new orders at this time.
[2023-07-08] VITALS (25 sets, daily range): BP systolic 129–176; BP diastolic 72–97; PULSE 66–88; RESP 14–27; TEMP 36.4–36.9; O2SAT 90–100
[2023-07-08] MEDS: hyDRALAzine 20 mg/mL INJ 1 mL 5 MG IVP (00:38)
[2023-07-08] MEDS: methylPREDNISolone sod succ 40 mg/mL INJ IVP ×3 (00:39→19:52)
[2023-07-08] MEDS: enoxaparin 40 mg/0.4 mL Syringe SUBCUT (00:41)
[2023-07-08] MEDS: ipratropium-albuterol 3 mL Neb INHALATION ×4 (02:37→20:12)
[2023-07-08] MEDS: piperacillin-tazobactam 3.375 GM in sodium chloride 0.9% (plus) 50 ML IV ×3 (04:10→19:52)
[2023-07-08 07:22] LABS: Basophils % 0.1 %; Eosinophils % 0.2 %; Lymphocytes # 0.8 10^3/uL (0.8-4.8); Lymphocytes % 6.7 %; Mean Corpuscular HGB Conc 32.3 g/dL (30-55); Mean Corpuscular Hemoglobin 30.7 pg (27-33); Mean Corpuscular Volume 94.9 fl (82-101); Mean Platelet Volume 8.9 fL (7.4-10.4); Monocytes # 0.5 10^3/uL (0.2-0.9); Monocytes % 4.2 %; Neutrophils # 10.39 10^3/uL (1.8-7.7); Neutrophils % 88.1 %; Nucleated Red Blood Cells % 0 %; Platelet Count 233 10^3/cmm (157-399); Red Blood Count 4.95 10^6/uL (3.85-5.65); White Blood Count 11.78 10^3/uL (3.29-11.43)
[2023-07-08 07:41] LABS: Alanine Aminotransferase < 5 U/L (0-41); Albumin Level 3.5 g/dL (3.5-5.2); Alkaline Phosphatase 68 U/L (40-130); Anion Gap 12.6 (5-19); Aspartate Amino Transferase 9 U/L (0-40); Blood Urea Nitrogen 32 mg/dL (8-23); Calcium 9.5 mg/dL (8.5-10.5); Carbon Dioxide 30 mmol/L (22-29); Chloride 104 mmol/L (98-107); Glomerular Filtration Rate 134.8 mL/min (90-130); Glucose 122 mg/dL (65-115); Osmolality Calculated 304 mOsm/kg (285-295); Potassium 3.6 mmol/L (3.5-5.1); Sodium 143 mmol/L (136-145); Total Bilirubin 0.8 mg/dL (0.15-1.2); Total Protein 6.5 g/dL (6.6-8.7)
[2023-07-08] MEDS: budesonide 0.5 mg/2 mL Neb INHALATION ×2 (08:19→20:12)
[2023-07-08] MEDS: sodium chloride 0.9% 1,000 ML 50 ML IV (09:05)
[2023-07-08] MEDS: cyanocobalamin 1,000 mcg/mL SDV 1000 MCG IM (10:13)
[2023-07-08] MEDS: pantoprazole 40 mg SDV IVP (10:15)
[2023-07-08] MEDS: aspirin 81 mg EC Tablet PO (10:16)
[2023-07-08] MEDS: amlodipine 10 mg Tablet PO (13:13)
[2023-07-08] MEDS: ammonium lactate lotion 226 gm Btl 1 APPLIC TOPICAL (13:14)
--- NOTE | 2023-07-08 14:45 | PC.NURSE ---
Report called to Tara. Pt transferred via WC. Requested to stay sitting up. Notified MINING MANAGER that pt had arrived and was in need of a recliner. Pt denied further needs. No S/S of distress upon nurse departure.
--- NOTE | 2023-07-08 16:33 | PM.PN ---
Subjective Subjective: No acute events overnight. Patient remained on BiPAP. Today morning seen sitting up in chair in ICU on 3 L oxygen supplementation. Saturating over 90%. Denies any nausea, vomiting, headache. Asking if his diet can be advanced. Worried about going home without BiPAP. We discussed that he needs to have a qualifying reason to get a BiPAP at home and would need a sleep study as an outpatient to confirm though we will try to do a pulse oximetry study overnight. Vitals/I&O/Wt Last Vital Signs Temp 97.6 F 07/08/23 15:50 Pulse 77 07/08/23 15:50 Resp 18 07/08/23 15:50 BP 165/95 07/08/23 15:50 Pulse Ox 95 07/08/23 15:50 O2 Del Method Nasal Cannula 07/08/23 15:50 O2 Flow Rate 3 07/08/23 15:34 FiO2 30 07/08/23 03:24 07/08/23 07/08/23 07/08/23 06:59 14:59 22:59 Intake Total 870.500 / 2980.981 370 / 370 319.167 / 689.167 Output Total 750 / 1300 Balance 120.500 / 1680.981 370 / 370 319.167 / 689.167 Weight last 48 hrs Weight 110.268 kg Weight 111.765 kg Physical Exam Narrative: General: AOx3, no acute distress HEENT: PERRLA, pupils bilaterally equal and reactive Chest: Bilateral bronchial breath sounds with occasional rhonchi all over lung pineda, coarse Giurgius present in right lower zone CVS: S1-S2 regular, no murmurs, no tachycardia, no gallops, no rubs Abdomen: Soft, nontender, no organomegaly, bowel sounds present, morbidly obese Neuro: No focal deficits, no facial deformity, Urinary Catheter Management: Jeffery: Cath Placed During This Visit: yes Reason for Continuing Indwelling Catheter: Accurate Measurement of Urinary Output in Critically Ill Patients Urinary Catheter Date of Insertion: 07/05/23 Urinary Catheter Time of Insertion: 23:30 Data 07/08/23 07:01 07/08/23 07:01 Micro: Microbiology 07/06/23 23:41 Blood Culture - Preliminary Blood 07/05/23 23:31 Blood Culture - Preliminary Blood 07/06/23 03:20 Sputum Culture - Preliminary Sputum - Expectorated Sputum A&P Assessment and plan (1) Acute respiratory failure with hypoxia and hypercapnia: Acute on chronic hypoxic and hypercapnic respiratory failure secondary to COPD exacerbation. Patient does have history of PE in the past not on anticoagulation because of increased risk of falls. Extubated 07/07 Also has history of congestive systolic heart failure with last known EF 48% with diffusely hypokinetic RV wall. COVID antigen, flu swab negative, D-dimer negative. Appreciate chest x-ray results. DuoNebs every 4 hours, Pulmicort twice daily Wean Solu-Medrol down to 40 mg every 12 hourly. Blood cultures so far negative, sputum cultures so far normal geoff. MRSA swab negative. Stop vancomycin. Continue with IV Zosyn for now. Will plan to discharge on oral antibiotics overall to finish a 7-day course. Patient has remained afebrile otherwise other than 1 episode of fever earlier in admission. Patient seems euvolemic for now. Patient is able to systolic congestive heart failure. Able to tolerate diet well. Stop IV fluids. Advance diet as per speech therapy. Keep mean over pressure 65. (2) COPD exacerbation: Management as above. Plan for overnight pulse oximetry study to see if patient can be qualified for BiPAP otherwise he will need to have a sleep study as an outpatient. BiPAP overnight for now. (3) Hyperkalemia: Resolved. (4) Altered mental status: Resolved. Back to baseline mentation. Most likely in setting of hypercapnia. Plan Hypertension: Goal blood pressure less than 140/90 mmHg. Blood pressure is elevated. Start on amlodipine 10 mg oral daily. Will uptitrate medications as per goal blood pressures. Regular diet Protonix for PUD prophylaxis DVT prophylaxis: Lovenox 40 mg subcutaneous daily Full code Transfer to [facility] floor. Attestations Medical Necessity Statement*: Requires further hospitalization for management of hypoxic respiratory failure postextubation in setting of COPD exacerbation Diagnoses Acute respiratory failure with hypoxia and hypercapnia J96.01; J96.02 COPD exacerbation J44.1 Hyperkalemia E87.5 Altered mental status R41.82
[2023-07-09] VITALS (7 sets, daily range): BP systolic 167–174; BP diastolic 82–97; PULSE 70–86; RESP 16–18; TEMP 36.4–36.6; O2SAT 90–94
[2023-07-09] MEDS: hyDRALAzine 20 mg/mL INJ 1 mL 5 MG IVP (00:12)
[2023-07-09] MEDS: enoxaparin 40 mg/0.4 mL Syringe SUBCUT (00:13)
[2023-07-09] MEDS: piperacillin-tazobactam 3.375 GM in sodium chloride 0.9% (plus) 50 ML IV (03:45)
[2023-07-09 05:23] LABS: Basophils % 0.1 %; Eosinophils % 0.1 %; Hematocrit 50.4 % (37-53); Lymphocytes # 0.9 10^3/uL (0.8-4.8); Lymphocytes % 8.1 %; Mean Corpuscular HGB Conc 32.3 g/dL (30-55); Mean Corpuscular Hemoglobin 30.8 pg (27-33); Mean Corpuscular Volume 95.3 fl (82-101); Mean Platelet Volume 9.1 fL (7.4-10.4); Monocytes # 0.5 10^3/uL (0.2-0.9); Monocytes % 4.9 %; Neutrophils # 9.01 10^3/uL (1.8-7.7); Neutrophils % 86.2 %; Nucleated Red Blood Cells % 0 %; Platelet Count 260 10^3/cmm (157-399); Red Blood Count 5.29 10^6/uL (3.85-5.65); Red Cell Distribution Width 13.1 % (12.1-15.1); White Blood Count 10.45 10^3/uL (3.29-11.43)
[2023-07-09 05:50] LABS: Alanine Aminotransferase 9 U/L (0-41); Albumin Level 3.8 g/dL (3.5-5.2); Alkaline Phosphatase 71 U/L (40-130); Anion Gap 13.1 (5-19); Aspartate Amino Transferase 12 U/L (0-40); Blood Urea Nitrogen 35 mg/dL (8-23); Calcium 9.5 mg/dL (8.5-10.5); Carbon Dioxide 30 mmol/L (22-29); Chloride 104 mmol/L (98-107); Glomerular Filtration Rate 134.8 mL/min (90-130); Glucose 122 mg/dL (65-115); Osmolality Calculated 305 mOsm/kg (285-295); Potassium 4.1 mmol/L (3.5-5.1); Sodium 143 mmol/L (136-145); Total Bilirubin 0.9 mg/dL (0.15-1.2); Total Protein 6.8 g/dL (6.6-8.7)
[2023-07-09] MEDS: budesonide 0.5 mg/2 mL Neb INHALATION (08:03)
[2023-07-09] MEDS: ipratropium-albuterol 3 mL Neb INHALATION (08:03)
[2023-07-09] MEDS: cyanocobalamin 1,000 mcg/mL SDV 1000 MCG IM (08:47)
[2023-07-09] MEDS: amlodipine 10 mg Tablet PO (08:47)
[2023-07-09] MEDS: pantoprazole 40 mg SDV IVP (08:47)
[2023-07-09] MEDS: methylPREDNISolone sod succ 40 mg/mL INJ IVP (08:47)
[2023-07-09] MEDS: aspirin 81 mg EC Tablet PO (08:47)
--- NOTE | 2023-07-09 09:59 | PM.DCS ---
Discharge Providers Date of Admission: 07/06/23 00:01 Date of Discharge: July 09, 2023 Attending Provider at Admission: Pamela Ray MD Attending Provider at Discharge: Chet Potts MD Primary Care Provider: Ed Branch Diagnoses at Discharge Discharge Diagnosis (1) Acute respiratory failure with hypoxia and hypercapnia: Status: Resolved (2) COPD exacerbation: Status: Resolved (3) Hyperkalemia: Status: Acute (4) Altered mental status: Status: Acute Reason for Visit Reason for Visit: RESP. DISTRESS Brief History: History as per HPI: Satish Jones is a 68 year old male with recurrent falls, history of alcohol abuse, recurrent admissions for Acute on chronic hypoxic hypercapnic respite failure suspected related to Untreated sleep apnea vs COPD not officially diagnosed due to lack of PFTs, h/o PE in March 2023 , however patient would not take anticoagulation due to history of recurrent falls at home including extensive facial injuries when he fell out of his recliner. On his previous admission overnight oximetry study was performed and BiPAP was recommended based on clinical evaluation, however eventually he did not meet criteria for the same. Patient presents to the emergency room today brought by his neighbor due to acute on chronic respiratory failure. Patient was found today to have severe respiratory distress, being unresponsive, he received [id number] ventilation and route to the emergency room and was intubated emergently upon arrival. It is not known at this time if he has recently been having any fever chills cough or expectoration worsened over baseline. He was discharged from the hospital last on May 25, 2023 after treatment for acute on chronic hypoxic hypercapnic respiratory failure and CHF exacerbation. Inhalers were optimized presumed COPD. Patient has longstanding lower extremity lymphedema. He was hypotensive post intubation which required starting low dose nor epinephrine. Hospital Course Hospital Course Patient was admitted to the hospital for further evaluation and management of hypoxic and hypercapnic respiratory failure. Requiring intubation secondary COPD exacerbation. He was started on inhalation treatment along with IV steroids. Patient did have an episode of fever during hospitalization though there is very low concern for pneumonia. He was maintained on broad-spectrum antibiotics during hospitalization. His cultures remain negative. He responded well to the treatment and he was eventually extubated on 07/07. Patient has done well on 2 to 3 L above baseline oxygen supplementation since extubation. Patient again underwent overnight pulse oximetry during hospitalization and he did not qualify for BiPAP the patient would most likely benefit from BiPAP as an outpatient. Sleep study has been ordered for the patient. He has been discharged hemodynamically stable condition with advised to continue with inhalation treatment, steroid taper, oral Augmentin and Levaquin for overall 5 more days with advised to follow-up with a primary care provider within next 1 week and to get sleep study at the earliest. Physical Exam Narrative: General: AOx3, no acute distress HEENT: PERRLA, pupils bilaterally equal and reactive Chest: Bilateral bronchial breath sounds with occasional rhonchi all over lung pineda, coarse Giurgius present in right lower zone CVS: S1-S2 regular, no murmurs, no tachycardia, no gallops, no rubs Abdomen: Soft, nontender, no organomegaly, bowel sounds present, morbidly obese Neuro: No focal deficits, no facial deformity, Urinary Catheter Management: Jeffery: Cath Placed During This Visit: yes Reason for Continuing Indwelling Catheter: Other Urinary Catheter Date of Insertion: 07/05/23 Urinary Catheter Time of Insertion: 23:30 Discharge Data Studies Completed and Pending Completed Studies During Hospitalization Category Date Time Status XR chest 1V portable 35313 Q48H Exams 07/07/23 06:00 Completed XR chest 1V portable [id number] Routine Exams 07/06/23 12:20 Completed XR chest 1V portable [id number] Routine Exams 07/06/23 14:11 Completed XR chest 1V portable [id number] Stat Exams 07/05/23 23:02 Completed Pending at discharge Category Date Time Status XR chest 1V portable [id number] Q48H Exams 07/09/23 06:00 Ordered XR chest 1V portable [id number] Q48H Exams 07/11/23 06:00 Ordered Blood Cultures ([facility]) Routine Lab 07/05/23 23:31 Results Blood Cultures ([facility]) Routine Lab 07/06/23 23:41 Results Laboratory Results WBC 10.45 10^3/uL (3.29-11.43) 07/09/23 04:43 Corrected WBC Cancelled 07/06/23 12:06 RBC 5.29 10^6/uL (3.85-5.65) 07/09/23 04:43 Hgb 16.30 g/dL (11.27-16.99) 07/09/23 04:43 Hct 50.4 % (37-53) 07/09/23 04:43 MCV 95.3 fl (82-101) 07/09/23 04:43 MCH 30.8 pg (27-33) 07/09/23 04:43 MCHC 32.3 g/dL (30-55) 07/09/23 04:43 RDW 13.1 % (12.1-15.1) 07/09/23 04:43 Plt Count 260 10^3/cmm (157-399) 07/09/23 04:43 MPV 9.1 fL (7.4-10.4) 07/09/23 04:43 Gran % Cancelled 07/06/23 12:06 Neut % (Auto) 86.2 % 07/09/23 04:43 Lymph % (Auto) 8.1 % 07/09/23 04:43 [place] % (Auto) 4.9 % 07/09/23 04:43 Eos % (Auto) 0.1 % 07/09/23 04:43 Baso % (Auto) 0.1 % 07/09/23 04:43 Neut # (Auto) 9.01 10^3/uL (1.8-7.7) H 07/09/23 04:43 Lymph # (Auto) 0.9 10^3/uL (0.8-4.8) 07/09/23 04:43 [place] # (Auto) 0.5 10^3/uL (0.2-0.9) 07/09/23 04:43 Eos # (Auto) 0.0 10^3/uL (0.0-0.8) 07/09/23 04:43 Baso # (Auto) 0.0 10^3/uL (0.0-0.1) 07/09/23 04:43 Absolute Gran (auto) Cancelled 07/06/23 12:06 Nucleated RBC % (auto) 0 % 07/09/23 04:43 Nucleated RBCs # 0.0 /100WBC 07/09/23 04:43 PT 14.10 SECONDS (12.1-14.9) 07/05/23 23:30 INR 1.06 (0.8-1.2) 07/05/23 23:30 APTT 33.5 SECONDS (23.9-36.7) 07/05/23 23:30 D-Dimer 0.39 ug/mLFEU (0-0.59) 07/05/23 23:30 Specimen Type Arterial 07/07/23 05:03 Sample Site Radial, right 07/07/23 05:03 ABG pH 7.45 (7.35-7.45) 07/07/23 05:03 ABG pCO2 45.0 mmHg (35-45) 07/07/23 05:03 ABG pO2 82.3 mmHg (80.0-100.0) 07/07/23 05:03 ABG PO2/FiO2 Ratio 0 07/07/23 05:03 ABG HCO3 31.3 mmol/L (22-26) H 07/07/23 05:03 ABG O2 Saturation 97.0 07/07/23 05:03 ABG Base Excess 6.2 mmol/L (-2.0-2.0) H 07/07/23 05:03 Toro Test Pos 07/07/23 05:03 A-a O2 Gradient 18.8 mmHg (5-10) H 07/07/23 05:03 Hematocrit 50.8 % (42-52) 07/07/23 05:03 Hgb O2 Saturation 95.9 % (95-100) 07/07/23 05:03 Carboxyhemoglobin 0.9 %THgb (0.4-20.1) 07/07/23 05:03 Methemoglobin 0.2 % (0.4-1.5) L 07/07/23 05:03 Total Hemoglobin 16.6 g/dL (14-18) 07/07/23 05:03 Sodium 144.0 mmol/L (131-143) H 07/07/23 05:03 Potassium 3.3 mmol/L (3.5-5.0) L 07/07/23 05:03 Glucose 161.0 mg/dL (70-115) H 07/07/23 05:03 Ionized Calcium 1.2 mmol/L (1.1-1.4) 07/07/23 05:03 O2 Delivery Device Vent 07/07/23 05:03 O2 Liters/Min 15.0 % 07/05/23 22:50 FiO2 40.0 % 07/07/23 05:03 Tidal Volume 0.50 07/07/23 05:03 PEEP 8.0 cmH20 07/07/23 05:03 Look Out Tower Fire Watcher ID Lele 07/07/23 05:03 Sodium 143 mmol/L (136-145) 07/09/23 04:43 Potassium 4.1 mmol/L (3.5-5.1) 07/09/23 04:43 Chloride 104 mmol/L (98-107) 07/09/23 04:43 Carbon Dioxide 30 mmol/L (22-29) H 07/09/23 04:43 Anion Gap 13.1 (5-19) 07/09/23 04:43 BUN 35 mg/dL (8-23) H 07/09/23 04:43 Creatinine 0.6 mg/dL (0.7-1.2) L 07/09/23 04:43 GFR Calculation 134.8 mL/min (90-130) H 07/09/23 04:43 Glucose 122 mg/dL (65-115) H 07/09/23 04:43 POC Glucose 122 mg/dL (70-110) H 07/07/23 16:59 Calculated Osmolality 305 mOsm/kg (285-295) H 07/09/23 04:43 Lactic Acid 1.5 mmol/L (0.5-2.2) 07/05/23 23:30 Calcium 9.5 mg/dL (8.5-10.5) 07/09/23 04:43 Total Bilirubin 0.9 mg/dL (0.15-1.2) 07/09/23 04:43 AST 12 U/L (0-40) 07/09/23 04:43 ALT 9 U/L (0-41) 07/09/23 04:43 Alkaline Phosphatase 71 U/L (40-130) 07/09/23 04:43 Troponin T 5th Gen ng/L 99 ng/L (0-15) H 07/06/23 04:10 C-Reactive Protein 6.4 mg/L (0.0-4.9) H 07/06/23 04:10 NT-Pro-B Natriuret Pep 779 pg/mL (0-125) H 07/05/23 23:30 Total Protein 6.8 g/dL (6.6-8.7) 07/09/23 04:43 Albumin 3.8 g/dL (3.5-5.2) 07/09/23 04:43 Globulin 3.0 g/dL (1.3-4.6) 07/09/23 04:43 Vitamin B12 221 pg/mL (232-1245) L 07/06/23 12:06 Folate Cancelled 07/07/23 03:58 Procalcitonin 0.08 ng/mL (0-0.5) 07/06/23 12:06 Urine Color Yellow (Yellow) 07/05/23 23:30 Urine Appearance Clear (CLEAR) 07/05/23 23:30 Urine pH 5 (5-7) 07/05/23 23:30 Ur Specific [place] 1.030 (1.005-1.030) 07/05/23 23:30 Urine Protein 3+ (Negative) H 07/05/23 23:30 Urine Glucose (UA) Norm (Normal) 07/05/23 23:30 Urine Ketones 1+ (Negative) H 07/05/23 23:30 Urine Blood Trace (Negative) H 07/05/23 23:30 Urine Nitrate Negative (Negative) 07/05/23 23:30 Urine Bilirubin 1+ (Negative) H 07/05/23 23:30 Urine Urobilinogen 1 mg/dL (Negative) H 07/05/23 23:30 Ur Leukocyte Esterase Negative (Negative) 07/05/23 23:30 Urine RBC 0-4 /hpf (0-2) H 07/05/23 23:30 Urine WBC None /hpf (0-5) 07/05/23 23:30 Ur Squamous Epith Cells None /hpf (0-5) 07/05/23 23:30 Amorphous Sediment Not Reportable 07/05/23 23:30 Urine Bacteria Trace /hpf (NONE) 07/05/23 23:30 Urine Mucus 2+ /hpf 07/05/23 23:30 Ethyl Alcohol < 10 mg/dL (0-10) 07/05/23 23:30 Influenza Type A Ag negative (Negative) 07/06/23 02:55 Influenza Type B Ag negative (Negative) 07/06/23 02:55 SARS-CoV-2 Ag (Rapid) negative (Negative) 07/06/23 01:05 MRSA (PCR) Not detected (NOT DETECTED) 07/06/23 13:00 Vitals Last Vital Signs Temp 97.5 F L 07/09/23 08:26 Pulse 73 07/09/23 08:26 Resp 18 07/09/23 08:26 BP 174/94 07/09/23 08:26 Pulse Ox 94 07/09/23 08:26 O2 Del Method Nasal Cannula 07/09/23 08:26 O2 Flow Rate 2 07/09/23 08:05 FiO2 30 07/08/23 03:24 Discharge Plan Discharge Patient Disposition: Home Condition: Stable Prescriptions: New Breo Ellipta 200-25 mcg/dose blister with device 1 inh inhalation Q24H Qty: 60 0RF losartan-hydrochlorothiazide 50-12.5 mg tablet 1 tab PO DAILY Qty: 30 0RF prednisone 10 mg tablet See Taper PO DIRECTED Qty: 42 0RF Taper: predniSONE 60-10 60 mg Daily for 2 Days and 0 Hour 50 mg Daily for 2 Days and 0 Hour 40 mg Daily for 2 Days and 0 Hour 30 mg Daily for 2 Days and 0 Hour 20 mg Daily for 2 Days and 0 Hour 10 mg Daily for 2 Days and 0 Hour Rx Instructions: see taper instructions amoxicillin-pot clavulanate 875-125 mg tablet 1 tab PO BID Qty: 10 0RF levofloxacin 750 mg tablet 750 mg PO Q24H 5 Days Qty: 5 0RF Continued aspirin 81 mg Tablet,Delayed Release (Dr/Ec) 81 mg PO QAM albuterol sulfate 90 mcg/actuation HFA aerosol inhaler 2 puff INHALATION Q6H PRN (Reason: Shortness Of Breath) pantoprazole 40 mg tablet,delayed release (DR/EC) 40 mg PO DAILY thiamine HCl (vitamin B1) 100 mg tablet 100 mg PO DAILY Qty: 30 0RF Spiriva with HandiHaler 18 mcg Capsule, W/Inhalation Device 1 cap INHALATION DAILY Rx Instructions: puncture 1 cap using device; one dose = 2 inhalations Advair Diskus 500-50 mcg/dose blister with device 1 inh inhalation BID Qty: 60 0RF amlodipine 10 mg tablet 10 mg PO DAILY Changed furosemide 40 mg tablet 40 mg PO DAILY Qty: 10 0RF acetaminophen 500 mg Tablet 1,000 mg PO Q8H PRN (Reason: Pain) Qty: 10 0RF Discontinued bumetanide 1 mg tablet 2 mg PO BID Discharge Orders: Discharge Order (Routine); Ordered 07/09/23 Ordered By: Chet Potts Other Ambulatory Orders: Sleep Study/Titration (Routine) Timeframe: 1 Week Facility: [facility] - Location: [facility] Ordered By: Chet Potts Referrals: Ed Branch [Primary Care Provider] - 07/14/23 11:00 am Discharge Diet: Regular Discharge Activity: Resume usual activity and Increase activity as tolerated Patient Instructions: Prednisone (By mouth), Losartan (By mouth) (Cozaar), Fluticasone/Vilanterol (By breathing), Acute Respiratory Failure (GEN), Opioid Safety Activity Restrictions/Additional Instructions: Please take steroid taper as prescribed. You will be on Augmentin and recommended antibiotics for the next 5 days. Please continue to use your inhalation treatment daily. Follow-up with your primary care provider within next 1 week. You should have sleep study at the earliest. Continue taking amlodipine for high blood pressure. Along with the losartan hydrochlorothiazide combination has also been added to your medication list. Please check your blood pressure daily at home maintain a blood pressure diary. Please continue to hold off on alcohol intake. Discharge Attestations Time Spent in Discharge Care*: greater than 30 min Specific Discharge Activities: educating patient, discussing with pcp/other providers, discussing with showcase trimmer/social workers/dc planners, documenting/other paperwork and evaluating patient/reviewing data Status at Discharge: Cognitive status at discharge: cognitively intact, Behavioral status at discharge: cooperative, Functional status at discharge: independent ambulation, Overall status at discharge: patient is back to baseline Quality Metrics Clinical Quality Measures [ No reported AMI, CVA or VTE this stay] Coding Level of Care Code 90910 Total time (in minutes) for Discharge: 60 Diagnoses Acute respiratory failure with hypoxia and hypercapnia J96.01; J96.02 COPD exacerbation J44.1 Hyperkalemia E87.5 Altered mental status R41.82
--- NOTE | 2023-07-09 12:25 | PC.SOCIAL ---
Pg 2 IMM Explained to pt Pg 2 IMM. No questions voiced. Provided pt a copy. Initialed, dated, & timed a copy & placed in chart.
== END 2023-07-09 14:10 | disposition home health service (06) | DRG 208 ==
LOC: ER 23:30 → ICU 07-06 00:09 → MEDSURG 07-08 15:05
PROVIDERS: Admitting Provider Student in an Organized Health Care Education/Training Program; Emergency Provider Internal Medicine; PCP Family Medicine; Visit Provider Student in an Organized Health Care Education/Training Program
DX: J96.22 Acute and chronic respiratory failure with hypercapnia (principal); J44.1 Chronic obstructive pulmonary disease with (acute) exacerbation; I50.22 Chronic systolic (congestive) heart failure; J96.21 Acute and chronic respiratory failure with hypoxia; F17.210 Nicotine dependence, cigarettes, uncomplicated; E87.5 Hyperkalemia; I89.0 Lymphedema, not elsewhere classified; F10.10 Alcohol abuse, uncomplicated; Z86.711 Personal history of pulmonary embolism; Z85.46 Personal history of malignant neoplasm of prostate; Z91.81 History of falling; I11.0 Hypertensive heart disease with heart failure
CPT/HCPCS: 31500; 36415; 36416; 36600; 51702; 71045; 80051; 80053; 80307; 81001; 82330; 82607; 82746; 82803; 82805; 82962; 83605; 83880; 84132; 84145; 84484; 85025; 85378; 85610; 85730; 86140; 87040; 87070; 87426; 87641; 87804; 92610; 93005; 94002; 94003; 94640; 94660; 94799; 96365; 96367; 96372; 99291; A4570; C9113; J0330; J0360; J1650; J1815; J1956; J2250; J2543; J2704; J2920; J3010; J3370; J3420; J7030; J7626

== ENCOUNTER 2023-08-11 11:17 | Emergency (ER) | payer MEDICARE, SELFPAY ==
[2023-08-11] VITALS (26 sets, daily range): BP systolic 116–129; BP diastolic 59–100; PULSE 53–91; RESP 9–27; TEMP 36.9; O2SAT 90–100; BMI 35.4
--- NOTE | 2023-08-11 11:33 | XR_ITS ---
WS: [id number] Portable AP upright chest, 08/11/2023 Clinical Data: dyspnea Comparison: Portable chest, 07/07/2023 Findings: No nodules, masses or effusions are seen. There is elevation of the right diaphragm with an overlying opacity which may represent atelectasis and/or pneumonia. There is minimal opacity overlyi ng the lateral aspect of the left diaphragm. The heart is enlarged. The pulmonary vascularity is not increased. No pneumonia or pneumothorax is seen. The aortic arch and descending thoracic aorta show t ortuosity. Impression: 1. Elevation of the right diaphragm with overlying opacity which could represent atelectasis and/or m inimal pneumonia. 2. Minimal opacity overlying the lateral aspect of the left diaphragm which could represent atelectas is and/or minimal pneumonia. 3. Cardiomegaly and atherosclerosis.
--- NOTE | 2023-08-11 11:38 | ECG_ITS ---
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 [email or web address]
[2023-08-11 12:05] LABS: Basophils # 0.1 10^3/uL (0.0-0.1); Basophils % 0.6 %; Eosinophils # 0.1 10^3/uL (0.0-0.8); Eosinophils % 1.3 %; Hematocrit 47.2 % (37-53); Lymphocytes # 1.2 10^3/uL (0.8-4.8); Lymphocytes % 14.8 %; Mean Corpuscular HGB Conc 31.8 g/dL (30-55); Mean Corpuscular Hemoglobin 30.5 pg (27-33); Mean Corpuscular Volume 95.9 fl (82-101); Mean Platelet Volume 8.3 fL (7.4-10.4); Monocytes # 0.8 10^3/uL (0.2-0.9); Monocytes % 9.4 %; Neutrophils # 6.07 10^3/uL (1.8-7.7); Neutrophils % 73.4 %; Nucleated Red Blood Cells % 0 %; Platelet Count 241 10^3/cmm (157-399); Red Blood Count 4.92 10^6/uL (3.85-5.65); Red Cell Distribution Width 12.5 % (12.1-15.1); White Blood Count 8.27 10^3/uL (3.29-11.43)
--- NOTE | 2023-08-11 12:12 | ED_ITS ---
HPI - SOB/Dyspnea 2 General: Chief Complaint: Shortness of Breath/Dyspnea Stated Complaint: Gen weakness, SOB Time Seen by Provider: 08/11/23 11:33 History of Present Illness: HPI Narrative: Patient presents to the ER with main complaint of generalized weakness and is legs for the last 3 to 4 days. Patient states this is getting worse. Patient also noted that he has swelling and is now leaking through his wraps. Patient states his breathing is about normal. Patient was just discharged from the hospital on July 09 for respiratory failure. Patient has oxygen at home but only wears it at night. Patient satting 100% on room air upon arrival to the ER. Review of Systems 2 General: Reports: 10 or more systems reviewed and unremarkable except in HPI and below PFSH ED 2 PFSH: Medical History Prostate cancer Pulmonary embolism Surgical History Hx of colonoscopy May 2022, polyps found Status post colonoscopy H/O prostatectomy History of umbilical hernia repair Social History Smoking and tobacco/nicotine status: current some day tobacco/nicotine user Alcohol intake: former Marital status: Single Current occupational status: retired Physical Exam 2 Const: COMMON NORMALS: no acute distress, average body habitus, patient oriented x3, no limitations, healthy appearing, alert and well nourished HENMT: COMMON NORMALS: normocephalic, atraumatic, hearing grossly normal bilaterally, external ears normal, Normal external nose present, moist oral mucous membranes and oropharynx normal HEAD & SCALP: normocephalic and atraumatic NOSE: Normal external nose present EXTERNAL EAR: Yes external ears normal Neck/C-Spine: COMMON NORMALS: no JVD Chest: COMMONS NORMALS: normal inspection of the chest and normal palpation of entire chest wall Resp: COMMON NORMALS: normal respiratory effort, No retractions, No use of accessory muscles and clear to auscultation bilaterally AUSCULTATION: clear to auscultation bilaterally Cardio: COMMON NORMALS: no JVD, regular rate, regular rhythm, S1 normal heart sound present, S2 normal heart sound present, No gallops present (Cardio), No clicks present (Cardio), No murmurs present (Cardio) and No rub (Cardio) R ATE: regular rate RHYTHM: regular rhythm HEART SOUNDS: S1 normal heart sound present and S2 normal heart sound present GI: COMMON NORMALS: Normal to inspection, nondistended, normoactive bowel sounds present, Soft to palpation, non-tender, No hepatosplenomegaly present and no masses PALPATION: Yes Soft to palpation and Yes No hepatosplenomegaly present Extremity: NARRATIVE EXTREMITY EXAM: Bilateral wraps in place from the knee down several areas of drainage noted through the wraps. Neuro: COMMON NORMALS: patient oriented x3 SENSORIUM/ORIENTATION: Yes alert Course 2 Vital Signs: Vital signs: Vital Signs Temperature 98.5 F 08/11/23 11:21 Pulse Rate 73 08/11/23 15:16 Respiratory Rate 18 08/11/23 15:16 Blood Pressure 129/100 08/11/23 15:16 Pulse Oximetry 92 08/11/23 15:16 Oxygen Delivery Me thod Room Air 08/11/23 14:18 MDM - SOB/Dyspnea Medical Decision Making Patient on lab work performed and included but limited to CBC CMP troponin BNP, troponin initially was elevated at 81 and then went down to 74 to 2-hour cece for delta of -6, BNP was minimally elevated at 190. Patient had O2 saturation on room air between 95 and 100%. An ABG was also obtained due to the patient wanting 1 and it showed pH 7.4 pCO2 58 pO2 of 56 and a bicarb of 36 patient be discharged home to follow-up with his PCP. Differential Diagnosis Unlikely acute exacerbation of chronic obstructive airways disease, congestive heart failure, community acquired pneumonia, asthma with exacerbation or pulmonary embolism Medical Records I reviewed the patient's medical records. Lab Data I reviewed the patient's lab results. 08/11/23 11:51 08/11/23 11:51 Labs/Radiology: Laboratory Results WBC 8.27 10^3/uL (3.29-11.43) 08/11/23 11:51 RBC 4.92 10^6/uL (3.85-5.65) 08/11/23 11:51 Hgb 15.00 g/dL (11.27-16.99) 08/11/23 11:51 Hct 47.2 % (37-53) 08/11/23 11:51 MCV 95.9 fl (82-101) 08/11/23 11:51 MCH 30.5 pg (27-33) 08/11/23 11:51 MCHC 31.8 g/dL (30-55) 08/11/23 11:51 RDW 12.5 % (12.1-15.1) 08/11/23 11:51 Plt Count 241 10^3/cmm (157-399) 08/11/23 11:51 MPV 8.3 fL (7.4-10.4) 08/11/23 11:51 Neut % (Auto) 73.4 % 08/11/23 11:51 Lymph % (Auto) 14.8 % 08/11/23 11:51 [place] % (Auto) 9.4 % 08/11/23 11:51 Eos % (Auto) 1.3 % 08/11/23 11:51 Baso % (Auto) 0.6 % 08/11/23 11:51 Neut # (Auto) 6.07 10^3/uL (1.8-7.7) 08/11/23 11:51 Lymph # (Auto) 1.2 10^3/uL (0.8-4.8) 08/11/23 11:51 [place] # (Auto) 0.8 10^3/uL (0.2-0.9) 08/11/23 11:51 Eos # (Auto) 0.1 10^3/uL (0.0-0.8) 08/11/23 11:51 Baso # (Auto) 0.1 10^3/uL (0.0-0.1) 08/11/23 11:51 Nucleated RBC % (auto) 0 % 08/11/23 11:51 Nucleated RBCs # 0.0 /100WBC 08/11/23 11:51 Specimen Type Arterial 08/11/23 14:29 Sample Site Radial, left 08/11/23 14:29 ABG pH 7.40 (7.35-7.45) 08/11/23 14:29 ABG pCO2 58.2 mmHg (35-45) H 08/11/23 14:29 ABG pO2 56.7 mmHg (80.0-100.0) L 08/11/23 14:29 ABG PO2/FiO2 Ratio 0 08/11/23 14:29 ABG HCO3 36.1 mmol/L (22-26) H 08/11/23 14:29 ABG O2 Saturation 92.1 08/11/23 14: ABG Base Excess 8.9 mmol/L (-2.0-2.0) H 08/11/23 14:29 Toro Test Pos 08/11/23 14: A-a O2 Gradient 3.0 mmHg (5-10) L 08/11/23 14:29 Hematocrit 47.0 % (42-52) 08/11/23 14:29 Hgb O2 Saturation 88.2 % (95-100) L 08/11/23 14: Carboxyhemoglobin 3.9 %THgb (0.4-20.1) 08/11/23 14: Methemoglobin 0.4 % (0.4-1.5) 08/11/23 14: Total Hemoglobin 15.3 g/dL (14-18) 08/11/23 14:29 Sodium 142.0 mmol/L (131-143) 08/11/23 14:29 Potassium 3.9 mmol/L (3.5-5.0) 08/11/23 14:29 Glucose 85.0 mg/dL (70-115) 08/11/23 14:29 Ionized Calcium 1.3 mmol/L (1.1-1.4) 08/11/23 14:29 O2 Delivery Device Room air 08/11/23 14:29 FiO2 21.0 % 08/11/23 14:29 Irrigation District Manager ID [place]ci 08/11/23 14:29 Sodium 140 mmol/L (136-145) 08/11/23 11:51 Potassium 4.7 mmol/L (3.5-5.1) 08/11/23 11:51 Chloride 98 mmol/L (98-107) 08/11/23 11:51 Carbon Dioxide 34 mmol/L (22-29) H 08/11/23 11:51 Anion Gap 12.7 (5-19) 08/11/23 11:51 BUN 16 mg/dL (8-23) 08/11/23 11:51 Creatinine 0.6 mg/dL (0.7-1.2) L 08/11/23 11:51 GFR Calculation 134.8 mL/min (90-130) H 08/11/23 11:51 Glucose 78 mg/dL (65-115) 08/11/23 11:51 Calculated Osmolality 290 mOsm/kg (285-295) 08/11/23 11:51 Calcium 9.0 mg/dL (8.5-10.5) 08/11/23 11:51 Total Bilirubin 0.5 mg/dL (0.15-1.2) 08/11/23 11:51 AST 15 U/L (0-40) 08/11/23 11:51 ALT 9 U/L (0-41) 08/11/23 11:51 Alkaline Phosphatase 87 U/L (40-130) 08/11/23 11:51 Troponin T Baseline 81 ng/L (0-15) H 08/11/23 11:51 Troponin T 120 Minute 74.86 ng/L (0-15) H 08/11/23 13:34 Delta Troponin T -6.14 ABS# (0-10) L 08/11/23 13:34 NT-Pro-B Natriuret Pep 190 pg/mL (0-125) H 08/11/23 11:51 Total Protein 6.5 g/dL (6.6-8.7) L 08/11/23 11:51 Albumin 3.8 g/dL (3.5-5.2) 08/11/23 11:51 Globulin 2.7 g/dL (1.3-4.6) 08/11/23 11:51 All radiology interpretation(s) finalized by discharge EKG Data EKG 1: I personally reviewed and interpreted this EKG as follows: EKG Interpretation Date: 08/11/23 EKG interpretation time: 11:38 Prior EKG tracings: available for review Interpretation: Ventricular rate 81 beats minute, UT interval 175, QRS duration 136, QTc of 474, sinus rhythm occasional PVC, right axis deviation, right bundle branch block, EKG 2: I personally reviewed and interpreted this EKG as follows: EKG Interpretation Date: 08/11/23 EKG interpretation time: 13:02 Prior EKG tracings: available for review Interpretation: Ventricular rate 77 bpm, UT interval 175, QRS duration 138, QTc of 467, sinus rhythm with occasional PVCs, right axis deviation, right bundle branch block Discharge Plan Discharge Patient Disposition: Home Clinical Impression: Bilateral leg weakness Condition: Stable Prescriptions: No Action aspirin 81 mg Tablet,Delayed Release (Dr/Ec) 81 mg PO QAM albuterol sulfate 90 mcg/actuation HFA aerosol inhaler 2 puff INHALATION Q6H PRN (Reason: Shortness Of Breath) tiotropium bromide [Spiriva with HandiHaler] 18 mcg Capsule, W/Inhalation Device 1 cap INHALATION DAILY Rx Instructions: puncture 1 cap using device; one dose = 2 inhalations fluticasone furoate-vilanterol [Breo Ellipta] 200-25 mcg/dose blister with device 1 inh inhalation Q24H Qty: 60 0RF losartan-hydrochlorothiazide 50-12.5 mg tablet 1 tab PO DAILY Qty: 30 0RF amlodipine 10 mg tablet 10 mg PO QAM furosemide 80 mg tablet 80 mg PO QPM spironolactone 50 mg tablet 50 mg PO QAM Discharge Orders: Discharge ED (Routine); Ordered 08/11/23 Ordered By: Jamaal Haynes Referrals: Ed Branch [Primary Care Provider] - 1 week Patient Instructions: Weakness (ED) Activity Restrictions/Additional Instructions: Your workup in ER did not show any acute cause for your lower extremity weakness. Please follow-up with your family practice physician within the next 7 days for further evaluation testing. Coding Level of Care Code ED Web Project Manager for Sharmin Stewart
[2023-08-11 12:20] LABS: Troponin(5th) Baseline 81 ng/L (0-15)
[2023-08-11] MEDS: HYDROcodone-acetaminophen 5-325 mg Tablet 1 TAB PO (12:40)
[2023-08-11 12:46] LABS: Alanine Aminotransferase 9 U/L (0-41); Albumin Level 3.8 g/dL (3.5-5.2); Alkaline Phosphatase 87 U/L (40-130); Blood Urea Nitrogen 16 mg/dL (8-23); Carbon Dioxide 34 mmol/L (22-29); Chloride 98 mmol/L (98-107); Creatinine Clr Calc Pharmacy 110.4409; Globulin 2.7 g/dL (1.3-4.6); Glomerular Filtration Rate 134.8 mL/min (90-130); Glucose 78 mg/dL (65-115); NT Pro B Type Natriuretic Pept 190 pg/mL (0-125); Osmolality Calculated 290 mOsm/kg (285-295); Sodium 140 mmol/L (136-145); Total Bilirubin 0.5 mg/dL (0.15-1.2); Total Protein 6.5 g/dL (6.6-8.7)
[2023-08-11 12:49] LABS: Anion Gap 12.7 (5-19); Aspartate Amino Transferase 15 U/L (0-40); Potassium 4.7 mmol/L (3.5-5.1)
--- NOTE | 2023-08-11 13:02 | ECG_ITS ---
[facility] Test Date: 2023-08-11 Pat Name: Satish Jones Department: Room: Gender: Male Inspector Optical Instrument: : 1955 Requested By: Jamaal Haynes Order Number: [id number] Myles MD: Sahil Turcios M.D. Measurements Intervals [place] Rate: 77 P: 97 ND: 175 QRS: 250 QRSD: 138 T: 42 QT: 435 QTc: 495 Interpretive Statements SINUS RHYTHM WITH OCCASIONAL SUPRAVENTRICULAR PREMATURE COMPLEXES RIGHT AXIS DEVIATION [QRS AXIS > 100] RIGHT BUNDLE BRANCH BLOCK [120+ ms QRS DURATION, UPRIGHT V1, 40+ ms S IN I/aVL/V4/V5/V6] POSSIBLE ANTERIOR MYOCARDIAL INFARCTION , OF INDETERMINATE AGE [30 ms Q WAVE IN V3/V4, OR R < 0.2 mV IN V4] Compared to ECG 08/11/2023 11:38:37 No significant changes Electronically Signed On 08-11-2023 15:47:00 RECREATION SUPERINTENDENT by Sahil Turcios M.D. [id number]
--- NOTE | 2023-08-11 13:25 | PC.PHAR ---
pt states he takes care of his own medications-pt states he finished losartan-hctz 50-12.5mg daily about 3 days ago ext shows last filled 07/09/23 30d/s-advair rx written 07/09/23 is on hold at [facility] states the insurance wont pay for-pt states he finished his prednisone taper dose rx filled 07/09/23 12 d/s-pt states he is no longer taking eliquis 5mg bid filled on 04/19/23 30d/s pt states he tries to takes a 81mg aspirin daily-
[2023-08-11 14:00] LABS: Troponin 5 2HR 74.86 ng/L (0-15)
[2023-08-11 14:02] LABS: Troponin 5 2HR Delta -6.14 ABS# (0-10)
[2023-08-11 14:40] LABS: ABG PCO2 58.2 mmHg (35-45); Base Excess ABG 8.9 mmol/L (-2.0-2.0); Blood Gas Allen Test Pos; Blood Gas Operator Identificat WALCI; Blood Gas Sample Site Radial, left; Blood Gas Sample Type Arterial; Carboxyhemoglobin 3.9 %THgb (0.4-20.1); HCO3 ABG 36.1 mmol/L (22-26); HGB O2 Sat 88.2 % (95-100); Ionized Calcium Level - ABG 1.3 mmol/L (1.1-1.4); Methemoglobin 0.4 % (0.4-1.5); Oxygen Device ROOM AIR; Oxygen Saturation ABG 92.1; PO2 ABG 56.7 mmHg (80.0-100.0); PO2 FiO2 Ratio Arterial Blood 0; Potassium Level - ABG 3.9 mmol/L (3.5-5.0); Total Hemoglobin 15.3 g/dL (14-18)
== END 2023-08-11 15:17 | disposition home or self-care (01) ==
PROVIDERS: Emergency Provider Emergency Medicine; PCP Family Medicine
DX: R53.1 Weakness (principal); Z79.82 Long term (current) use of aspirin; Z85.46 Personal history of malignant neoplasm of prostate; Z72.0 Tobacco use
CPT/HCPCS: 36415; 36600; 71045; 80051; 80053; 82330; 82805; 83880; 84484; 85025; 93005; 99285

== ENCOUNTER 2023-08-16 12:40 | Inpatient (IN) | payer MEDICARE, SELFPAY ==
[2023-08-16] VITALS (11 sets, daily range): BP systolic 120–157; BP diastolic 64–87; PULSE 82–97; RESP 18–26; TEMP 37; O2SAT 81–97; BMI 35.4
--- NOTE | 2023-08-16 | CT_ITS ---
WS: [id number] CT THORACIC SPINE TECHNIQUE: Noncontrast CT of the thoracic spine with coronal and sagittal reformatted images. CLINICAL INFORMATION: FALL COMPARISON: None. DLP: 2415.[address] scans at [facility] use at least one of these dose optimization techniques: automated e xposure control; mA and/or kV adjustment per patient size (includes targeted exams where dose is matc hed to clinical indication); or iterative reconstruction. FINDINGS: Moderate thoracic kyphosis. Hypertrophic changes with ankylosis mid and lower thoracic spine. Mild th oracic curve. No acute appearing compression fractures. No high-grade central canal stenosis. Normal caliber visualized thoracic aorta. Aortic calcification. Coronary calcification. Cardiomegaly. Nodular RIGHT thyroid. Adrenal glands are normal. Small splenule. Small esophageal hernia. Shallow i nspiration. Bibasilar atelectasis is worse on the RIGHT with partial consolidation RIGHT lower lobe. Recommend correlation for pneumonia and aspiration pneumonia. Air bronchograms in the RIGHT lower lob e and RIGHT middle lobe. Gaseous distention of the GI tract similar to the prior CT 04/17/2023 IMPRESSION: 1. Moderate thoracic kyphosis. No acute fractures. 2. Shallow inspiration with compressive atelectasis RIGHT lower lobe and RIGHT middle lobe with air bronchograms. Recommend correlation for aspiration pneumonia. Volume loss RIGHT lower lobe. 3. Slight subsegmental atelectasis LEFT lower lobe.
--- NOTE | 2023-08-16 | CT_ITS ---
WS: [id number] CT LUMBAR SPINE TECHNIQUE: Noncontrast CT of the lumbar spine with coronal and sagittal reformatted images. CLINICAL INFORMATION: FALL COMPARISON: None. DLP: 2415.[address] scans at [facility] use at least one of these dose optimization techniques: automated e xposure control; mA and/or kV adjustment per patient size (includes targeted exams where dose is matc hed to clinical indication); or iterative reconstruction. FINDINGS: Mild lumbar curve. Moderate spondylitic changes. No acute fractures. Degenerative spondylolysis L5-S1 . No significant anterolisthesis. No acute compression fractures. L1-L2: Normal. L2-L3: Mild disc bulging with moderate facet arthropathy and ligamentum flavum hypertrophy. Moderate central canal stenosis. Narrowing of the subarticular recess bilaterally. Mild RIGHT foraminal narrow ing. L3-L4: Shallow central disc protrusion. Moderate central canal stenosis. Moderate facet arthropathy. Mild bilateral bony foraminal narrowing. L4-L5: Mild disc bulging with mild central canal stenosis. Moderate facet arthropathy. Foramen are pa tent. L5-S1: Mild annular bulging. Spinal canal and foramen are patent. Moderate facet arthropathy. Adrenal glands are normal. Osteopenia. Visualized pelvic bony structures: Normal. Paravertebral soft tissues: Normal. Partially visualized RIGHT lower pole renal cyst. IMPRESSION: 1. Mild lumbar curve. No acute fractures. No acute compression fractures. 2. Moderate central canal stenosis L2-L3 and L3-L4. 3. Degenerative spondylosis L5-S1. No significant anterolisthesis. 4. No other acute findings.
--- NOTE | 2023-08-16 13:10 | XRR_ITS ---
PROCEDURE INFORMATION: Exam: XR Chest Exam date and time: 08/16/2023 1:16 PM Age: 68 years old Clinical indication: Cough and dyspnea; Additional info: Dyspnea/cough TECHNIQUE: Imaging protocol: Radiologic exam of the chest. Views: 1 view. COMPARISON: CR XR chest 1V portable [id number] 08/11/2023 11:41 AM FINDINGS: Lungs: There is obscuration of the margins of the left hemidiaphragm concerning for infiltrate in the left base/retrocardiac region. Pleural spaces: No definite pleural effusion. No pneumothorax. Heart/Mediastinum: Stable mild cardiomegaly. Bones/joints: Unremarkable. XR/XR chest 1V portable [id number] IMPRESSION: There is obscuration of the margins of the left hemidiaphragm concerning for infiltrate in the left base/retrocardiac region. Two line stable elevation the right hemidiaphragm.
--- NOTE | 2023-08-16 13:16 | CT_ITS ---
WS: [id number] CT HEAD TECHNIQUE: Noncontrast CT of the head obtained from the skullbase to the vertex. CLINICAL INFORMATION: trauma COMPARISON: CT 05/23/2023 DLP: 1800.[address] scans at [facility] use at least one of these dose optimization techniques: automated e xposure control; mA and/or kV adjustment per patient size (includes targeted exams where dose is matc hed to clinical indication); or iterative reconstruction. FINDINGS: No evidence of intracranial hemorrhage or mass effect. Ventricular system and basal cisterns are tello nt. Minimal small vessel changes. No significant parenchymal volume loss. Intracranial vascular calci fication. No extra-axial fluid collections. No evidence of mass or mass effect. Normal beltrán-white dif ferentiation. Paranasal sinuses and mastoid air cells are well aerated. .Normal visualized soft tissues. Sclerotic lesion LEFT frontal calvarium unchanged since 2019. IMPRESSION: 1. No evidence of intracranial hemorrhage or mass effect. 2. No acute intracranial findings.
--- NOTE | 2023-08-16 13:18 | W.ED.FALL ---
HPI - Fall General: Chief Complaint: Fall Stated Complaint: back pain Time Seen by Provider: 08/16/23 12:42 Source: patient Mode of arrival: ambulatory History of Present Illness: 68-year-old male presents emergency room complaining of weakness in his legs. It has been progressively worse recently he is complaining of some back pain. He fell this morning. He had gotten up out of a chair started to walk to the bathroom his legs felt weak and rubbery and he went down he did hit his head as he fell he had no loss of consciousness. Patient has bilateral chronic venous stasis ulcers on his lower extremities are very foul-smelling has been going to [facility] he denies any fever sweats or chills. Reviewing his chart he is previously had venous duplex done but does not look like he has had arterial Dopplers done he is a smoker. MD complaint: fall Onset (ago): minute(s) Fall from: standing Fall witnessed: no Place fall occurred: home Loss of consciousness: None Location of injury: head Associated symptoms-after fall: Reports difficulty walking; Denies abdominal pain, chest pain, confusion, headache(s), hematuria, lightheadedness, neck pain, numbness, short of breath, vertigo or weakness Review of Systems Const: Denies: fever(s) or chills Card: Denies: chest pain or lightheadedness Resp: Denies: dyspnea GI: Denies: abdominal pain : Denies: hematuria Musc: Denies: neck pain Skin/Breast: Denies: rash Neuro: Reports: difficulty walking; Denies: headache(s), vertigo or confusion [facility] ED PFSH: Medical History Prostate cancer Pulmonary embolism Surgical History Hx of colonoscopy May 2022, polyps found Status post colonoscopy H/O prostatectomy History of umbilical hernia repair Social History Smoking and tobacco/nicotine status: current some day tobacco/nicotine user Alcohol intake: former Marital status: Single Current occupational status: retired Physical Exam Const: GENERAL APPEARANCE: cooperative and comfortable ORIENTATION/CONSCIOUSNESS: Yes awake, Yes oriented to person, Yes oriented to place and Yes oriented to time HENMT: COMMON NORMALS: normocephalic, atraumatic and hearing grossly normal bilaterally HEAD & SCALP: normocephalic and atraumatic Resp: COMMON NORMALS: normal respiratory effort, No retractions, No use of accessory muscles and clear to auscultation bilaterally AUSCULTATION: clear to auscultation bilaterally Cardio: COMMON NORMALS: regular rate, regular rhythm and No murmurs present (Cardio) RATE: regular rate RHYTHM: regular rhythm GI: COMMON NORMALS: Soft to palpation and No hepatosplenomegaly present AUSCULTATION: Yes normoactive bowel sounds PALPATION: Yes Soft to palpation, No Tenderness to palpation present (GI), No Guarding due to palpation present (GI) and Yes No hepatosplenomegaly present Neuro: SENSORIUM/ORIENTATION: Yes oriented to person, Yes oriented to place and Yes oriented to time Skin: COMMON NORMALS: no rashes or lesions noted GENERAL SKIN EXAM: no rashes or lesions noted Course Vital Signs: Vital signs: Vital Signs Temperature 98.6 F 08/16/23 12:46 Pulse Rate 94 08/16/23 17:44 Respiratory Rate 18 08/16/23 12:46 Blood Pressure 120/71 08/16/23 12:46 Pulse Oximetry 97 08/16/23 17:44 Oxygen Delivery Me thod Nasal Cannula 08/16/23 12:46 Oxygen Flow Rate 4 08/16/23 12:46 Fraction of Inspir ed Oxygen 50 08/16/23 17:44 MDM - Fall Medical Decision Making Initially patient refused CTs because of claustrophobia and pain he was given p.o. hydrocodone and 2 mg of IV Ativan he tolerated the CT went back to check on him he was hypercapnic blood gas showed significant hypercapnia with pH of 722 and pCO2 of 91. Patient is steroid of BiPAP he also had his oxygen bumped up as high as 5 or 6 L which I think contributed to it. He is improving. No acute fractures on the imaging and there is question of possible pneumonia we will treat him for aspiration pneumonia his legs do not obviously look infected I think is mostly chronic venous stasis changes and ulcerations discussed with hospitalist he may add vancomycin. Medical Records I reviewed the patient's medical records. Lab Data I reviewed the patient's lab results. 08/16/23 13:30 08/16/23 13:30 Radiology Impressions Chest X-Ray 08/16/23 13:10 IMPRESSION: There is obscuration of the margins of the left hemidiaphragm concerning for infiltrate in the left base/retrocardiac region. Two line stable elevation the right hemidiaphragm. ADDENDUM: 08/16/23 0836 The last sentence in the impression section should read: Stable elevation of the right hemidiaphragm. Laboratory Results WBC 10.05 10^3/uL (3.29-11.43) 08/16/23 13:30 RBC 5.30 10^6/uL (3.85-5.65) 08/16/23 13:30 Hgb 16.10 g/dL (11.27-16.99) 08/16/23 13:30 Hct 49.5 % (37-53) 08/16/23 13:30 MCV 93.4 fl (82-101) 08/16/23 13:30 MCH 30.4 pg (27-33) 08/16/23 13:30 MCHC 32.5 g/dL (30-55) 08/16/23 13:30 RDW 12.4 % (12.1-15.1) 08/16/23 13:30 Plt Count 276 10^3/cmm (157-399) 08/16/23 13:30 MPV 8.1 fL (7.4-10.4) 08/16/23 13:30 Neut % (Auto) 80.1 % 08/16/23 13:30 Lymph % (Auto) 10.4 % 08/16/23 13:30 [place] % (Auto) 8.2 % 08/16/23 13:30 Eos % (Auto) 0.1 % 08/16/23 13:30 Baso % (Auto) 0.5 % 08/16/23 13:30 Neut # (Auto) 8.05 10^3/uL (1.8-7.7) H 08/16/23 13:30 Lymph # (Auto) 1.1 10^3/uL (0.8-4.8) 08/16/23 13:30 [place] # (Auto) 0.8 10^3/uL (0.2-0.9) 08/16/23 13:30 Eos # (Auto) 0.0 10^3/uL (0.0-0.8) 08/16/23 13:30 Baso # (Auto) 0.1 10^3/uL (0.0-0.1) 08/16/23 13:30 Nucleated RBC % (auto) 0 % 08/16/23 13:30 Nucleated RBCs # 0.0 /100WBC 08/16/23 13:30 Specimen Type Arterial 08/16/23 17:17 Sample Site Radial, left 08/16/23 17:17 ABG pH 7.22 (7.35-7.45) L 08/16/23 17:17 ABG pCO2 90.7 mmHg (35-45) H* 08/16/23 17:17 ABG pO2 47.9 mmHg (80.0-100.0) L 08/16/23 17:17 ABG HCO3 36.7 mmol/L (22-26) H 08/16/23 17:17 ABG O2 Saturation 80.7 08/16/23 17:17 ABG Base Excess 4.7 mmol/L (-2.0-2.0) H 08/16/23 17:17 Toro Test Pos 08/16/23 17:17 A-a O2 Gradient Not Reportable 08/16/23 17:17 Hematocrit 49.9 % (42-52) 08/16/23 17:17 Hgb O2 Saturation 77.6 % (95-100) L 08/16/23 17:17 Carboxyhemoglobin 3.4 %THgb (0.4-20.1) 08/16/23 17:17 Methemoglobin 0.5 % (0.4-1.5) 08/16/23 17:17 Total Hemoglobin 16.3 g/dL (14-18) 08/16/23 17:17 Sodium 138.0 mmol/L (131-143) 08/16/23 17:17 Potassium 4.4 mmol/L (3.5-5.0) 08/16/23 17:17 Glucose 100.0 mg/dL (70-115) 08/16/23 17:17 Ionized Calcium 1.3 mmol/L (1.1-1.4) 08/16/23 17:17 O2 Delivery Device Nc 08/16/23 17:17 O2 Liters/Min 5.0 % 08/16/23 17:17 Sample Clerk ID [place] 08/16/23 17:17 Sodium 134 mmol/L (136-145) L 08/16/23 13:30 Potassium 4.3 mmol/L (3.5-5.1) 08/16/23 13:30 Chloride 91 mmol/L (98-107) L 08/16/23 13:30 Carbon Dioxide 32 mmol/L (22-29) H 08/16/23 13:30 Anion Gap 15.3 (5-19) 08/16/23 13:30 BUN 22 mg/dL (8-23) 08/16/23 13:30 Creatinine 0.6 mg/dL (0.7-1.2) L 08/16/23 13:30 GFR Calculation 134.8 mL/min (90-130) H 08/16/23 13:30 Glucose 88 mg/dL (65-115) 08/16/23 13:30 Calculated Osmolality 281 mOsm/kg (285-295) L 08/16/23 13:30 Lactic Acid 1.2 mmol/L (0.5-2.2) 08/16/23 13:30 Calcium 9.2 mg/dL (8.5-10.5) 08/16/23 13:30 Total Bilirubin 0.8 mg/dL (0.15-1.2) 08/16/23 13:30 AST 13 U/L (0-40) 08/16/23 13:30 ALT 10 U/L (0-41) 08/16/23 13:30 Alkaline Phosphatase 95 U/L (40-130) 08/16/23 13:30 Total Protein 7.6 g/dL (6.6-8.7) 08/16/23 13:30 Albumin 4.0 g/dL (3.5-5.2) 08/16/23 13:30 Globulin 3.6 g/dL (1.3-4.6) 08/16/23 13:30 Urine Color Yellow (Yellow) 08/16/23 13:55 Urine Appearance Clear (CLEAR) 08/16/23 13:55 Urine pH 5 (5-7) 08/16/23 13:55 Ur Specific [place] 1.020 (1.005-1.030) 08/16/23 13:55 Urine Protein 1+ (Negative) H 08/16/23 13:55 Urine Glucose (UA) Norm (Normal) 08/16/23 13:55 Urine Ketones 2+ (Negative) H 08/16/23 13:55 Urine Blood Trace (Negative) H 08/16/23 13:55 Urine Nitrate Negative (Negative) 08/16/23 13:55 Urine Bilirubin 1+ (Negative) H 08/16/23 13:55 Urine Urobilinogen 1 mg/dL (Negative) H 08/16/23 13:55 Ur Leukocyte Esterase Negative (Negative) 08/16/23 13:55 Urine RBC 0-4 /hpf (0-2) H 08/16/23 13:55 Urine WBC 0-4 /hpf (0-5) H 08/16/23 13:55 Ur Squamous Epith Cells 0-4 /hpf (0-5) H 08/16/23 13:55 Amorphous Sediment Not Reportable 08/16/23 13:55 Urine Bacteria Trace /hpf (NONE) 08/16/23 13:55 All radiology interpretation(s) finalized by discharge Discharge Plan Discharge Patient Disposition: Admitted As Inpatient Clinical Impression: Acute on chronic respiratory failure with hypoxia and hypercapnia, COPD exacerbation, Bilateral leg weakness, Venous stasis ulcer Condition: Stable Prescriptions: No Action aspirin 81 mg Tablet,Delayed Release (Dr/Ec) 81 mg PO QAM albuterol sulfate 90 mcg/actuation HFA aerosol inhaler 2 puff INHALATION Q6H PRN (Reason: Shortness Of Breath) tiotropium bromide [Spiriva with HandiHaler] 18 mcg Capsule, W/Inhalation Device 1 cap INHALATION DAILY Rx Instructions: puncture 1 cap using device; one dose = 2 inhalations fluticasone furoate-vilanterol [Breo Ellipta] 200-25 mcg/dose blister with device 1 inh inhalation Q24H Qty: 60 0RF losartan-hydrochlorothiazide 50-12.5 mg tablet 1 tab PO DAILY Qty: 30 0RF amlodipine 10 mg tablet 10 mg PO QAM furosemide 80 mg tablet 80 mg PO QPM spironolactone 50 mg tablet 50 mg PO QAM prednisone 10 mg tablet See Rx Instructions .ROUTE .COMPLEX Rx Instructions: TAPER DIRECTED Referrals: Ed Branch [Primary Care Provider] - Coding Level of Care Code ED Radiology Special Procedure Tech for Chg Terry
--- NOTE | 2023-08-16 13:19 | CT_ITS ---
WS: [id number] CT CERVICAL TRAUMA TECHNIQUE: Noncontrast CT of the cervical spine with coronal and sagittal reformatted images. CLINICAL INFORMATION: Trauma COMPARISON: 05/23/2023 DLP: 1800.[address] scans at [facility] use at least one of these dose optimization techniques: automated e xposure control; mA and/or kV adjustment per patient size (includes targeted exams where dose is matc hed to clinical indication); or iterative reconstruction. FINDINGS: Straightening of the normal cervical lordosis. Cervical curve convex RIGHT. Moderate spondylitic castellanos ges. Grade 1 anterolisthesis C3 on C4 appears unchanged compared to previous. Disc space narrowing wo rse at C4-C5 C5-C6 and C6-C7. Normal craniocervical junction. Normal C1-C2 articulation. Dens is norm al in appearance. Normal occipital condyles. Normal C1 ring. No evidence of acute fracture or disloca tion. Normal prevertebral soft tissues. Mastoids air cells are well aerated. IMPRESSION: No evidence of acute fracture or dislocation.
--- NOTE | 2023-08-16 13:21 | ECG_ITS ---
[facility] Test Date: 2023-08-16 Pat Name: Satish Jones Department: Room: Gender: Male [facility] Care [facility] Director: : 1955 Requested By: Juancarlos Giles Order Number: [id number] Myles MD: Sahil Turcios M.D. Measurements Intervals [place] Rate: 84 P: 59 VT: 159 QRS: 241 QRSD: 139 T: 42 QT: 386 QTc: 459 Interpretive Statements SINUS RHYTHM WITH OCCASIONAL SUPRAVENTRICULAR PREMATURE COMPLEXES RIGHT AXIS DEVIATION [QRS AXIS > 100] RIGHT BUNDLE BRANCH BLOCK [120+ ms QRS DURATION, UPRIGHT V1, 40+ ms S IN I/aVL/V4/V5/V6] POSSIBLE ANTERIOR MYOCARDIAL INFARCTION , OF INDETERMINATE AGE [30 ms Q WAVE IN V3/V4, OR R < 0.2 mV IN V4] Compared to ECG 08/11/2023 13:02:00 No significant changes Electronically Signed On 08-16-2023 15:43:41 CABIN CREW by Sahil Turcios M.D. [id number]
[2023-08-16 13:40] LABS: Basophils # 0.1 10^3/uL (0.0-0.1); Basophils % 0.5 %; Eosinophils % 0.1 %; Hematocrit 49.5 % (37-53); Lymphocytes # 1.1 10^3/uL (0.8-4.8); Lymphocytes % 10.4 %; Mean Corpuscular HGB Conc 32.5 g/dL (30-55); Mean Corpuscular Hemoglobin 30.4 pg (27-33); Mean Corpuscular Volume 93.4 fl (82-101); Mean Platelet Volume 8.1 fL (7.4-10.4); Monocytes # 0.8 10^3/uL (0.2-0.9); Monocytes % 8.2 %; Neutrophils # 8.05 10^3/uL (1.8-7.7); Neutrophils % 80.1 %; Nucleated Red Blood Cells % 0 %; Platelet Count 276 10^3/cmm (157-399); Red Cell Distribution Width 12.4 % (12.1-15.1); White Blood Count 10.05 10^3/uL (3.29-11.43)
[2023-08-16] MEDS: HYDROcodone-acetaminophen 5-325 mg Tablet 1 TAB PO (13:40)
[2023-08-16 13:58] LABS: Alanine Aminotransferase 10 U/L (0-41); Alkaline Phosphatase 95 U/L (40-130); Anion Gap 15.3 (5-19); Aspartate Amino Transferase 13 U/L (0-40); Blood Urea Nitrogen 22 mg/dL (8-23); Calcium 9.2 mg/dL (8.5-10.5); Carbon Dioxide 32 mmol/L (22-29); Chloride 91 mmol/L (98-107); Creatinine Clr Calc Pharmacy 110.4409; Globulin 3.6 g/dL (1.3-4.6); Glomerular Filtration Rate 134.8 mL/min (90-130); Glucose 88 mg/dL (65-115); Osmolality Calculated 281 mOsm/kg (285-295); Potassium 4.3 mmol/L (3.5-5.1); Sodium 134 mmol/L (136-145); Total Bilirubin 0.8 mg/dL (0.15-1.2); Total Protein 7.6 g/dL (6.6-8.7)
[2023-08-16 13:59] LABS: Lactic Sepsis W/Reflex 1.2 mmol/L (0.5-2.2)
[2023-08-16 14:22] LABS: Add Urine Microscopic? YES; Bilirubin Urine 1+ (Negative); Blood Urine Trace (Negative); Glucose Urine UA Norm (Normal); Ketones Urine 2+ (Negative); Leukocyte Esterase Urine Negative (Negative); Nitrate Urine Negative (Negative); Protein Urine 1+ (Negative); Urine Appearance Clear (CLEAR); Urine Color Yellow (Yellow); Urobilinogen Urine 1 mg/dL (Negative); pH Urine 5 (5-7)
[2023-08-16 14:23] LABS: Bacteria Urine TRACE /hpf; RBC Urine 0-4 /hpf (0-2); Squamous Epithelial Cell Urine 0-4 /hpf (0-5); WBC Urine 0-4 /hpf (0-5)
[2023-08-16 14:24] LABS: Add Urine Culture? No
[2023-08-16] MEDS: LORazepam 2 mg/mL INJ 10 mL MDV IVP (14:55)
--- NOTE | 2023-08-16 16:07 | PC.PHAR ---
PT UNABLE TO VERIFY CURRENT MEDICATIONS. DOLLY AT [facility] VERIFIED EXT MED LIST AND VERIFIED PICKED UP BY PT. 08/16/23
[2023-08-16 17:28] LABS: ABG PH Result 7.22 (7.35-7.45); Arterial Blood Gas Hematocrit 49.9 % (42-52); Base Excess ABG 4.7 mmol/L (-2.0-2.0); Blood Gas Allen Test Pos; Blood Gas Operator Identificat WALCI; Blood Gas Sample Site Radial, left; Blood Gas Sample Type Arterial; Carboxyhemoglobin 3.4 %THgb (0.4-20.1); HCO3 ABG 36.7 mmol/L (22-26); HGB O2 Sat 77.6 % (95-100); Ionized Calcium Level - ABG 1.3 mmol/L (1.1-1.4); Methemoglobin 0.5 % (0.4-1.5); Oxygen Device NC; Oxygen Saturation ABG 80.7; PO2 ABG 47.9 mmHg (80.0-100.0); Potassium Level - ABG 4.4 mmol/L (3.5-5.0); Total Hemoglobin 16.3 g/dL (14-18)
[2023-08-16 17:29] LABS: ABG PCO2 90.7 mmHg (35-45)
[2023-08-16] MEDS: piperacillin-tazobactam 3.375 GM in sodium chloride 0.9% (plus) 50 ML IV (18:15)
--- NOTE | 2023-08-16 18:39 | P.HP_ITS ---
Providers/Chief Complaint 2 Admitting Physician: Uriel Pascual MD Primary Care Provider: Ed Branch Chief Complaint: back pain History of Present Illness Satish Jones is a 68 year old male with history of recurrent falls, alcohol abuse, untreated sleep apnea, COPD, PE noncompliant with anticoagulation secondary to alcohol abuse and recurrent falls, was discharged in June after management of hypoxic hypercarbic respiratory failure he was given outpatient BiPAP referral presented today after sustaining a fall. As per the EMS and the ER physician patient fell in the bathroom patient described his legs giving up on him and it felt like rubber, in the ER patient was extremely noncooperative he was given Ativan later blood gas showed severe hypoxic hypercapnic respite failure he was put on BiPAP when hospice was called second ABG was pending Patient is oriented to himself Drowsy on current BiPAP settings 22/ FiO2 50% He is at risk of intubation awaiting for second blood gas admit quickly to the ICU Review of Systems 2 General: Reports: ROS unobtainable due to medical condition Medications/Allergies Home Medications Medication Instructions Recorded Confirmed Last Taken Type albuterol sulfate 90 mcg/actuation 2 puff inhalation Q6H PRN 01/04/23 08/16/23 Unknown History aerosol inhaler Shortness Of Breath aspirin 81 mg tablet,delayed 81 mg PO QAM 01/04/23 08/16/23 05/23/23 History release amlodipine 10 mg tablet 10 mg PO QAM 04/15/23 08/16/23 08/11/23 History tiotropium bromide 18 mcg capsule 1 cap inhalation DAILY 07/06/23 08/16/23 Unknown History with inhalation device (Spiriva with HandiHaler) fluticasone furoate 200 1 inh inhalation Q24H #60 ea 07/09/23 08/16/23 Unknown Rx mcg-vilanterol 25 mcg/dose inhalation powder (Breo Ellipta) losartan 50 mg-hydrochlorothiazide 1 tab PO DAILY #30 tabs 07/09/23 08/16/23 3 Days Ago Rx 12.5 mg tablet ~08/08/23 rx filled 07/09/23 30 furosemide 80 mg tablet 80 mg PO QPM 08/11/23 08/16/23 08/10/23 History spironolactone 50 mg tablet 50 mg PO QAM 08/11/23 08/16/23 08/11/23 History prednisone 10 mg tablet See Rx Instructions .Route .COMPLEX 08/16/23 08/16/23 Unknown History Allergies Allergy/AdvReac Type Severity Reaction Status Date / Time No Known Allergies Allergy Verified 08/11/23 13:14 PFSH Acute 2 PFSH: Medical History Prostate cancer Pulmonary embolism Surgical History Hx of colonoscopy May 2022, polyps found Status post colonoscopy H/O prostatectomy History of umbilical hernia repair Social History Smoking and tobacco/nicotine status: current some day tobacco/nicotine user Alcohol intake: former Marital status: Single Current occupational status: retired Vitals/I&O/Wt Last Vital Signs Temp 98.6 F 08/16/23 12:46 Pulse 87 08/16/23 18:02 Resp 18 08/16/23 12:46 BP 157/87 08/16/23 18:02 Pulse Ox 91 08/16/23 18:02 O2 Del Method BiPAP 08/16/23 18:02 O2 Flow Rate 3 08/16/23 17:32 FiO2 50 08/16/23 17:44 Weight last 48 hrs Weight 108.862 kg Physical Exam 2 Narrative: Morbidly obese Anasarca Lymphedema Venous stasis dermatitis Lower extremity cellulitis Signs of fluid overload present Currently on BiPAP Oriented to himself Data 08/16/23 13:30 08/16/23 13:30 Micro: Microbiology 08/16/23 13:30 Blood Culture - Preliminary Blood SPECIMEN COLLECTED 08/16/23 13:34 Blood Culture - Preliminary Blood SPECIMEN COLLECTED A&P Assessment and plan (1) Alcohol abuse: (2) Hypertension: (3) CHF exacerbation: (4) Pulmonary embolism: Qualifiers: Pulmonary embolism type: single subsegmental (without acute cor pulmonale) Qualified Code(s): I26.93 - Single subsegmental pulmonary embolism without acute cor pulmonale (5) Obesity, morbid: (6) Constipation: (7) Sacral pressure ulcer: Qualifiers: Pressure injury stage: unspecified pressure injury stage Qualified Code(s): L89.159 - Pressure ulcer of sacral region, unspecified stage (8) Venous stasis ulcer: (9) Bilateral leg weakness: (10) Altered mental status: (11) Respiratory failure: Qualifiers: Chronicity: acute Respiratory failure complication: hypercapnia Qualified Code(s): J96.02 - Acute respiratory failure with hypercapnia (12) Acute on chronic respiratory failure with hypoxia and hypercapnia: (13) COPD exacerbation: (14) Obstructive sleep apnea: (15) Lymphedema: Plan Acute hypoxic hypercapnic respite failure Acute COPD exacerbation related to pneumonia History of alcohol abuse Systolic CHF Patient is morbidly obese Seems to be an active heart failure Aspiration pneumonia on chest imaging noted as well He is at risk of intubation Admit quickly to the ICU Repeat ABG Patient is full code Patient was recently hospitalized I will use vancomycin and Zosyn for now Venous stasis dermatitis with cellulitis Patient has been given Zosyn in the ER Patient has multiple comorbid conditions most likely will need fdc placement at the time of discharge Systolic CHF exacerbation Start diuresis Monitor in ICU history of PE patient did not want to take anticoagulating agent because of recurrent falls related to alcohol abuse Lower extremity venous's dermatitis is chronic not sure if he is following up with wound care clinic Attestations 2 Medical Necessity Statement*: More than 2 midnights anticipated Coding Level of Care Code Critical Care >/= 30 minutes Critical care time (in minutes): 60 The high probability of a clinically significant, sudden or life threatening deterioration, as referenced in this documentation, required my full and direct attention, intervention and personal management. The critical care time shown is in addition to time spent performing any reported separately billable procedures and includes the following: [x] Data and vital sign review and interpretation [x ] Patient assessment, examination and intervention [x] Medication orders and management [x] Patient/Family updates as able [x] Care Coordination and Documentation. Diagnoses Alcohol abuse F10.10 Hypertension I10 CHF exacerbation I50.9 Single subsegmental pulmonary embolism without acute cor pulmonale I26.93 Pulmonary embolism type: single subsegmental (without acute cor pulmonale) Obesity, morbid E66.01 Constipation K59.00 Pressure injury of skin of sacral region, unspecified injury stage L89.159 Pressure injury stage: unspecified pressure injury stage Venous stasis ulcer I83.009; L97.909 Bilateral leg weakness R29.898 Altered mental status R41.82 Respiratory failure J96.02 Chronicity: acute Respiratory failure complication: hypercapnia Acute on chronic respiratory failure with hypoxia and hypercapnia J96.21; J96.22 COPD exacerbation J44.1 Obstructive sleep apnea G47.33 Lymphedema I89.0
[2023-08-16 19:20] LABS: ABG PH Result 7.22 (7.35-7.45); Arterial Blood Gas Hematocrit 49.1 % (42-52); Base Excess ABG 5.1 mmol/L (-2.0-2.0); Blood Gas Allen Test Pos; Blood Gas Sample Site Radial, right; Blood Gas Sample Type Arterial; HCO3 ABG 36.9 mmol/L (22-26); Oxygen Device BIPAP; PO2 ABG 74.9 mmHg (80.0-100.0); PO2 FiO2 Ratio Arterial Blood 0
[2023-08-16 19:21] LABS: ABG PCO2 90.3 mmHg (35-45)
--- NOTE | 2023-08-16 19:51 | PC.NURSE ---
Report was called to MIGUEL Cuellar in ICU. All questions and concerns addressed at time of report.
--- NOTE | 2023-08-16 20:02 | PC.NURSE ---
Dr Potts was informed of 2nd ABG results over the phone, per Dr Potts's request.
[2023-08-16 20:05] LABS: Procalcitonin 0.09 ng/mL (0-0.5)
[2023-08-16 20:06] LABS: Alcohol Level < 10 mg/dL (0-10)
[2023-08-16] MEDS: sodium chloride 0.9% 1,000 ML 100 ML IV (21:05)
[2023-08-16] MEDS: vancomycin 2,000 MG/400 ML PIGGYBACK 200 MG IV (21:05)
[2023-08-16] MEDS: enoxaparin 120 mg/0.8 mL Syringe 110 MG SUBCUT (21:06)
[2023-08-16] MEDS: FUROsemide 10 mg/mL SDV 10mL 60 MG IVP (21:06)
[2023-08-16] MEDS: methylPREDNISolone sod succ 40 mg/mL INJ IVP (21:06)
[2023-08-16 21:42] LABS: Base Excess ABG 7.4 mmol/L (-2.0-2.0); Blood Gas Allen Test Pos; Blood Gas Sample Site Brachial, right; Blood Gas Sample Type Arterial; Carboxyhemoglobin 2.6 %THgb (0.4-20.1); HCO3 ABG 37.3 mmol/L (22-26); HGB O2 Sat 93.2 % (95-100); Ionized Calcium Level - ABG 1.2 mmol/L (1.1-1.4); Methemoglobin 0.3 % (0.4-1.5); Oxygen Device BIPAP; PO2 ABG 75.4 mmHg (80.0-100.0); PO2 FiO2 Ratio Arterial Blood 0; Potassium Level - ABG 3.9 mmol/L (3.5-5.0)
[2023-08-16 21:43] LABS: ABG PCO2 75.9 mmHg (35-45)
[2023-08-16 22:10] LABS: Amphetamines Screen Urine Negative (Negative); Barbiturates Screen Urine Negative (Negative); Benzodiazepines Screen Urine Positive (Negative); Cocaine Screen Urine Negative (Negative); Opiate Screen Urine Positive (Negative); PCP Screen Urine Negative (Negative); THC Screen Urine Negative (Negative)
[2023-08-17] VITALS (98 sets, daily range): BP systolic 114–152; BP diastolic 61–102; PULSE 77–101; RESP 12–37; TEMP 36.6–36.7; O2SAT 82–100
[2023-08-17] MEDS: ipratropium-albuterol 3 mL Neb INHALATION ×3 (02:14→13:49)
[2023-08-17] MEDS: piperacillin-tazobactam 3.375 GM in sodium chloride 0.9% (plus) 50 ML IV ×3 (02:22→18:22)
[2023-08-17 04:16] LABS: ABG PCO2 40.4 mmHg (35-45); Arterial Blood Gas Hematocrit 48.8 % (42-52); Base Excess ABG 7.8 mmol/L (-2.0-2.0); Blood Gas Allen Test Pos; Blood Gas Sample Site Radial, right; Blood Gas Sample Type Arterial; HCO3 ABG 31.7 mmol/L (22-26); Oxygen Device BIPAP; PO2 FiO2 Ratio Arterial Blood 0
[2023-08-17 05:19] LABS: Basophils % 0.2 %; Eosinophils # 0.1 10^3/uL (0.0-0.8); Eosinophils % 0.5 %; Hematocrit 46.7 % (37-53); Lymphocytes # 0.5 10^3/uL (0.8-4.8); Lymphocytes % 5.3 %; Mean Corpuscular HGB Conc 33.2 g/dL (30-55); Mean Corpuscular Hemoglobin 31.1 pg (27-33); Mean Corpuscular Volume 93.6 fl (82-101); Mean Platelet Volume 8.6 fL (7.4-10.4); Monocytes # 0.2 10^3/uL (0.2-0.9); Monocytes % 2.4 %; Neutrophils % 91.1 %; Nucleated Red Blood Cells % 0 %; Platelet Count 282 10^3/cmm (157-399); Red Blood Count 4.99 10^6/uL (3.85-5.65); Red Cell Distribution Width 12.2 % (12.1-15.1); White Blood Count 9.23 10^3/uL (3.29-11.43)
[2023-08-17 05:47] LABS: Anion Gap 20.2 (5-19); Blood Urea Nitrogen 18 mg/dL (8-23); C Reactive Protein 41.8 mg/L (0.0-4.9); Calcium 9.1 mg/dL (8.5-10.5); Carbon Dioxide 30 mmol/L (22-29); Chloride 92 mmol/L (98-107); Creatinine Clr Calc Pharmacy 107.6854; Glomerular Filtration Rate 134.8 mL/min (90-130); Glucose 122 mg/dL (65-115); Magnesium 1.9 mg/dL (1.7-2.3); Osmolality Calculated 289 mOsm/kg (285-295); Phosphorus 1.8 mg/dL (2.5-4.5); Potassium 4.2 mmol/L (3.5-5.1); Sodium 138 mmol/L (136-145)
--- NOTE | 2023-08-17 06:45 | PC.PHAR ---
pharmacy to dose Vancomycin Vanco Initial Dosing Patient Information Sex M M/F Last Name QUIRINO AGE 68 years First Name LISA Ht 69 inches : 1955 ABW 103 kg Location: ICU-4 IBW 70.7 kg If loading dose given: DW 83.62 kg Loading DOSE: 2000 mg SCr 0.6 mg/dl This Dose = 23.9 mg/kg CrCl 121.1 ml/min 1st dose Cmax: 30.3 mcg/ml Vd 62.715 liters Time elapsed: 12.0 hrs Ke 0.105 hrs-1 Serum Conc. = 8.6 mcg/ml t1/2 7 hrs Hrs until 20 mcg/ml 5.0 hrs Hrs until 15 mcg/ml 7.7 hours Hrs until 10 mcg/ml 11.6 hours Dose Tau (Freq) Levels expected Standard 1500 12 Cmax 30.1 Targets 17.94 9.9 Cpeak 27.1 25 to 40 mg/kg hours Cmin 10.6 10 to 20
[2023-08-17] MEDS: sodium chloride 0.9% 1,000 ML 100 ML IV (07:25)
[2023-08-17] MEDS: methylPREDNISolone sod succ 40 mg/mL INJ IVP (09:29)
[2023-08-17] MEDS: FUROsemide 10 mg/mL SDV 10mL 60 MG IVP (09:29)
[2023-08-17] MEDS: enoxaparin 120 mg/0.8 mL Syringe 110 MG SUBCUT ×2 (09:30→21:12)
[2023-08-17] MEDS: TRAMadol 50 mg Tablet PO (09:30)
[2023-08-17] MEDS: sennosides-docusate Tablet 1 TAB PO (09:30)
[2023-08-17] MEDS: vancomycin 1,500 MG/300 ML PIGGYBACK 200 MG IV ×2 (09:31→21:12)
--- NOTE | 2023-08-17 10:51 | PM.PN ---
Subjective Subjective: We took off BiPAP this morning he is able to eat this morning Will request overnight pulse ox It is clear and evident that patient is in need of BiPAP he has been readmitted and he was advised of intubation with pCO2 around 90s with pH extremely low If this patient does not get BiPAP I am afraid he will come in with respiratory arrest which can lead to cardiac arrest and Spoke with catalytic case operator Will try to arrange BiPAP he should not be discharged without it this time Vitals/I&O/Wt Last Vital Signs Temp 98.0 F 08/17/23 04:45 Pulse 88 08/17/23 08:12 Resp 21 H 08/17/23 08:10 BP 142/88 08/17/23 06:15 Pulse Ox 98 08/17/23 08:10 O2 Del Method BiPAP 08/17/23 08:10 O2 Flow Rate 3 08/16/23 17:32 FiO2 40 08/17/23 08:12 08/16/23 08/17/23 08/17/23 22:59 06:59 14:59 Intake Total 50 / 50 450 / 500 1000 / 1000 Output Total 2100 / 2100 1550 / 3650 Balance -2050 / -2050 -1100 / -3150 1000 / 1000 Weight last 48 hrs Weight 103 kg Weight 103.5 kg Weight 108.862 kg Physical Exam Narrative: Venous stasis dermatitis Skin is macerated Off BiPAP this morning currently on 3 to 4 L nasal cannula Able to eat Complaining of neck pain GCS 15 nonfocal neuroexam No fever no sign of meningitis Abdomen distended nontender Urinary Catheter Management: Jeffery: Cath Placed During This Visit: yes Reason for Continuing Indwelling Catheter: Accurate Measurement of Urinary Output in Critically Ill Patients Urinary Catheter Date of Insertion: 08/16/23 Urinary Catheter Time of Insertion: 22:45 Data 08/17/23 04:06 08/17/23 04:06 Micro: Microbiology 08/17/23 05:00 Gram Stain - Final Sputum - Expectorated Sputum 08/16/23 13:30 Blood Culture - Preliminary Blood SPECIMEN COLLECTED 08/16/23 13:34 Blood Culture - Preliminary Blood SPECIMEN COLLECTED A&P Assessment and plan (1) Hypertension: (2) CHF exacerbation: (3) Pulmonary embolism: Qualifiers: Pulmonary embolism type: single subsegmental (without acute cor pulmonale) Qualified Code(s): I26.93 - Single subsegmental pulmonary embolism without acute cor pulmonale (4) Bladder mass: (5) Sacral pressure ulcer: Qualifiers: Pressure injury stage: unspecified pressure injury stage Qualified Code(s): L89.159 - Pressure ulcer of sacral region, unspecified stage (6) Venous stasis ulcer: (7) Bilateral leg weakness: (8) Altered mental status: (9) Respiratory failure: Qualifiers: Chronicity: acute Respiratory failure complication: hypercapnia Qualified Code(s): J96.02 - Acute respiratory failure with hypercapnia (10) Acute on chronic respiratory failure with hypoxia and hypercapnia: (11) COPD exacerbation: (12) Obstructive sleep apnea: (13) Lymphedema: Plan Acute on chronic hypoxic hypercapnic respite failure Off BiPAP today Requiring nasal cannula Will order a pulse oximeter study overnight patient definitely needs BiPAP otherwise he will go into respiratory arrest intubation and may lead to cardiac arrest Active smoker Concern for pneumonia Considering recent hospitalization we will keep him on broad-spectrum antibiotics Cellulitis with venous stasis dermatitis Continue antibiotics Complaining of neck pain no signs of fracture on imaging no signs of meningitis I will let him have GI soft diet advance to cardiac for the general Request ABG for tomorrow History of DVT will continue therapeutic Lovenox Full code I am happy to see that he was able to respond to BiPAP overnight/AVAPS he did not get intubated it is very important that we arrange BiPAP this time Attestations Medical Necessity Statement*: Continue medical management Diagnoses Hypertension I10 CHF exacerbation I50.9 Single subsegmental pulmonary embolism without acute cor pulmonale I26.93 Pulmonary embolism type: single subsegmental (without acute cor pulmonale) Bladder mass N32.89 Pressure injury of skin of sacral region, unspecified injury stage L89.159 Pressure injury stage: unspecified pressure injury stage Venous stasis ulcer I83.009; L97.909 Bilateral leg weakness R29.898 Altered mental status R41.82 Respiratory failure J96.02 Chronicity: acute Respiratory failure complication: hypercapnia Acute on chronic respiratory failure with hypoxia and hypercapnia J96.21; J96.22 COPD exacerbation J44.1 Obstructive sleep apnea G47.33 Lymphedema I89.0
--- NOTE | 2023-08-17 19:42 | PC.NURSE ---
Shift summary: Pt used 4lpm/NC for most of the shift today. No respiratory issues noted today. He did get up to chair and ambulate some with PT. He has spent majority of shift sitting in the chair, he does shift his own weight around in the chair. He has spent several hours this afternoon shaving and grooming his whiskers. He received lasix once this shift. He was started on GI soft diet today, he tolerated that very well. Diet switched to cardiac per Dr Pascual's orders. No Bm noted this shift. He did have 1850 of urine output. this am he complained of neck pain while he was in the bed. Tramadol administered this am. No further complaints about his neck ( pt also in chair after Tramadol admin ) This am upon entering his room a very foul odor emanated form his lower legs. His legs have thick, almost alligator like skin with raw weeping areas and areas that have crevices and peeling skin. Lower legs bathed and drenched with soapy warm water and crevices and between toes thoroughly cleaned. Legs patted dry. No deep ulcers note for the wet to dry dressings so telfa over wet raw areas then kerlex applied. Pt tolerated very well. Odor improved significantly.
[2023-08-18] VITALS (22 sets, daily range): BP systolic 109–145; BP diastolic 62–99; PULSE 66–98; RESP 15–26; TEMP 36.6; O2SAT 88–98
[2023-08-18] MEDS: piperacillin-tazobactam 3.375 GM in sodium chloride 0.9% (plus) 50 ML IV ×2 (01:47→09:11)
[2023-08-18] MEDS: morphine 4 mg/mL SDV 1 mL 2 MG IVP (02:22)
[2023-08-18 03:22] LABS: Basophils % 0.2 %; Eosinophils % 0.1 %; Hematocrit 45.9 % (37-53); Lymphocytes # 0.9 10^3/uL (0.8-4.8); Lymphocytes % 6.9 %; Mean Corpuscular HGB Conc 32.5 g/dL (30-55); Mean Corpuscular Hemoglobin 30.3 pg (27-33); Mean Corpuscular Volume 93.5 fl (82-101); Mean Platelet Volume 8.5 fL (7.4-10.4); Monocytes # 1.1 10^3/uL (0.2-0.9); Monocytes % 8.7 %; Neutrophils # 10.68 10^3/uL (1.8-7.7); Neutrophils % 83.4 %; Nucleated Red Blood Cells % 0 %; Platelet Count 277 10^3/cmm (157-399); Red Blood Count 4.91 10^6/uL (3.85-5.65); Red Cell Distribution Width 12.5 % (12.1-15.1); White Blood Count 12.79 10^3/uL (3.29-11.43)
[2023-08-18 03:37] LABS: Anion Gap 11.8 (5-19); Blood Urea Nitrogen 25 mg/dL (8-23); Calcium 9.3 mg/dL (8.5-10.5); Carbon Dioxide 35 mmol/L (22-29); Chloride 96 mmol/L (98-107); Creatinine Clr Calc Pharmacy 107.4285; Glomerular Filtration Rate 134.8 mL/min (90-130); Glucose 142 mg/dL (65-115); Osmolality Calculated 295 mOsm/kg (285-295); Potassium 3.8 mmol/L (3.5-5.1); Sodium 139 mmol/L (136-145)
--- NOTE | 2023-08-18 09:03 | PC.SOCIAL ---
IMM Update pg 2 of IMM updated and reviewed w/ patient. Copy provided and copy dated, initialed and placed in chart.
[2023-08-18] MEDS: ipratropium-albuterol 3 mL Neb INHALATION ×3 (09:05→20:12)
--- NOTE | 2023-08-18 09:07 | PC.SOCIAL ---
IMM Update pg 2 of IMM updated and reviewed w/ patient. Copy provided and copy dated, initialed and placed in chart.
[2023-08-18] MEDS: sennosides-docusate Tablet 1 TAB PO (09:11)
[2023-08-18] MEDS: bumetanide 1 mg Tablet PO (09:11)
[2023-08-18] MEDS: vancomycin 1,500 MG/300 ML PIGGYBACK 150 MG IV (09:12)
[2023-08-18] MEDS: enoxaparin 120 mg/0.8 mL Syringe 110 MG SUBCUT (09:12)
[2023-08-18 09:18] LABS: Vancomycin Trough 13.1 ug/mL (10-15)
--- NOTE | 2023-08-18 10:49 | PM.PN ---
Subjective Subjective: Overnight pulse ox study reviewed Patient improved on BiPAP He is needing assist to get out of bed to use a bedside commode To complain of neck pain No cervical fracture Hemodynamically stable Can be transferred out of ICU to [facility] [place] currently on 3 L Had a BM today Vitals/I&O/Wt Last Vital Signs Temp 97.9 F 08/17/23 14:00 Pulse 79 08/18/23 09:08 Resp 18 08/18/23 09:08 BP 109/66 08/18/23 07:00 Pulse Ox 93 08/18/23 09:08 O2 Del Method Nasal Cannula 08/18/23 09:08 O2 Flow Rate 3 08/18/23 09:08 FiO2 40 08/17/23 08:12 08/17/23 08/18/23 08/18/23 22:59 06:59 14:59 Intake Total 850 / 2950 50 / 3000 Output Total 300 / 300 600 / 900 Balance 550 / 2650 -550 / 2100 Weight last 48 hrs Weight 103 kg Weight 103.5 kg Weight 108.862 kg Physical Exam Narrative: Morbidly obese Complaining of cervical neck pain Abdomen soft, distended Lower extremity foul-smelling macerated skin no active gangrene Lymphedema GCS 15 Nonfocal neuroexam Currently on 3 L S1, S2 Urinary Catheter Management: Jeffery: Cath Placed During This Visit: yes Reason for Continuing Indwelling Catheter: Accurate Measurement of Urinary Output in Critically Ill Patients Urinary Catheter Date of Insertion: 08/16/23 Urinary Catheter Time of Insertion: 22:45 Data 08/18/23 03:00 08/18/23 03:00 Micro: Microbiology 08/16/23 13:34 Blood Culture - Preliminary Blood NEGATIVE TO DATE 08/16/23 13:30 Blood Culture - Preliminary Blood NEGATIVE TO DATE 08/17/23 05:00 Gram Stain - Final Sputum - Expectorated Sputum A&P Assessment and plan (1) CHF exacerbation: (2) Pulmonary embolism: Qualifiers: Pulmonary embolism type: single subsegmental (without acute cor pulmonale) Qualified Code(s): I26.93 - Single subsegmental pulmonary embolism without acute cor pulmonale (3) Obesity, morbid: (4) Constipation: (5) Hypokalemia: (6) Bladder mass: (7) Sacral pressure ulcer: Qualifiers: Pressure injury stage: unspecified pressure injury stage Qualified Code(s): L89.159 - Pressure ulcer of sacral region, unspecified stage (8) Venous stasis ulcer: (9) Bilateral leg weakness: (10) Altered mental status: (11) Respiratory failure: Qualifiers: Chronicity: acute Respiratory failure complication: hypercapnia Qualified Code(s): J96.02 - Acute respiratory failure with hypercapnia (12) Acute on chronic respiratory failure with hypoxia and hypercapnia: (13) COPD exacerbation: (14) Obstructive sleep apnea: (15) Lymphedema: Plan I will transfer him out of ICU to [facility] [place] Patient improved on BiPAP Overnight pulse ox study reviewed Will need assisted placement Will use wet-to-dry dressing with Santyl and zinc oxide no active sign of gangrene De-escalate IV antibiotics to p.o. regimen Afebrile Hemodynamically stable Immune system to get out of bed to use bedside commode Has sleep apnea study on Wednesday hopefully assisted will be able to transport Doing well on 3 L Constipation: Resolved Attestations Medical Necessity Statement*: To [facility] [place] today Diagnoses CHF exacerbation I50.9 Single subsegmental pulmonary embolism without acute cor pulmonale I26.93 Pulmonary embolism type: single subsegmental (without acute cor pulmonale) Obesity, morbid E66.01 Constipation K59.00 Hypokalemia E87.6 Bladder mass N32.89 Pressure injury of skin of sacral region, unspecified injury stage L89.159 Pressure injury stage: unspecified pressure injury stage Venous stasis ulcer I83.009; L97.909 Bilateral leg weakness R29.898 Altered mental status R41.82 Respiratory failure J96.02 Chronicity: acute Respiratory failure complication: hypercapnia Acute on chronic respiratory failure with hypoxia and hypercapnia J96.21; J96.22 COPD exacerbation J44.1 Obstructive sleep apnea G47.33 Lymphedema I89.0
[2023-08-18] MEDS: TRAMadol 50 mg Tablet PO ×2 (12:11→20:10)
--- NOTE | 2023-08-18 17:10 | PC.OT ---
OT evaluation attempted with patient declining to participate; will attempt at later time.
[2023-08-18] MEDS: amoxicillin-clav 875-125 mg Tablet 1 TAB PO (17:43)
[2023-08-18] MEDS: doxycycline 100 mg Tablet PO (17:43)
[2023-08-18] MEDS: ondansetron 2 mg/ML SDV 2 mL 4 MG IVP (20:11)
[2023-08-18] MEDS: metoclopramide 5 mg/mL SDV 2 mL IVP (23:13)
[2023-08-19] VITALS (17 sets, daily range): BP systolic 113–148; BP diastolic 72–87; PULSE 69–103; RESP 14–26; TEMP 36.4–36.7; O2SAT 91–100
[2023-08-19] MEDS: ipratropium-albuterol 3 mL Neb INHALATION ×4 (02:53→20:01)
[2023-08-19 03:58] LABS: ABG PH Result 7.26 (7.35-7.45); Arterial Blood Gas Hematocrit 49.2 % (42-52); Base Excess ABG 9.9 mmol/L (-2.0-2.0); Blood Gas Allen Test Pos; Blood Gas Sample Type Arterial; HCO3 ABG 41.9 mmol/L (22-26)
[2023-08-19 04:00] LABS: Blood Gas Operator Identificat JB; Blood Gas Sample Site Radial, right; Blood Gas Tidal Volume 0.45; Oxygen Device BIPAP; PO2 FiO2 Ratio Arterial Blood 0
[2023-08-19 04:02] LABS: ABG PCO2 93.9 mmHg (35-45)
[2023-08-19] MEDS: TRAMadol 50 mg Tablet PO ×2 (04:49→15:51)
[2023-08-19 05:01] LABS: Basophils % 0.5 %; Eosinophils # 0.1 10^3/uL (0.0-0.8); Eosinophils % 0.7 %; Hematocrit 48.3 % (37-53); Lymphocytes % 11.4 %; Mean Corpuscular HGB Conc 32.1 g/dL (30-55); Mean Corpuscular Hemoglobin 31.1 pg (27-33); Mean Platelet Volume 8.2 fL (7.4-10.4); Monocytes # 0.9 10^3/uL (0.2-0.9); Monocytes % 10.4 %; Neutrophils # 6.68 10^3/uL (1.8-7.7); Neutrophils % 76.5 %; Nucleated Red Blood Cells % 0 %; Platelet Count 258 10^3/cmm (157-399); Red Blood Count 4.98 10^6/uL (3.85-5.65); Red Cell Distribution Width 12.9 % (12.1-15.1); White Blood Count 8.72 10^3/uL (3.29-11.43)
[2023-08-19 05:17] LABS: Blood Urea Nitrogen 23 mg/dL (8-23); Calcium 9.3 mg/dL (8.5-10.5); Chloride 94 mmol/L (98-107); Creatinine Clr Calc Pharmacy 107.4285; Glomerular Filtration Rate 134.8 mL/min (90-130); Glucose 110 mg/dL (65-115); Osmolality Calculated 294 mOsm/kg (285-295); Sodium 140 mmol/L (136-145)
[2023-08-19 05:37] LABS: Carbon Dioxide 41 mmol/L (22-29)
[2023-08-19] MEDS: sennosides-docusate Tablet 1 TAB PO (08:12)
[2023-08-19] MEDS: doxycycline 100 mg Tablet PO ×2 (08:12→17:06)
[2023-08-19] MEDS: bumetanide 1 mg Tablet PO (08:12)
[2023-08-19] MEDS: amoxicillin-clav 875-125 mg Tablet 1 TAB PO ×2 (08:12→17:06)
[2023-08-19] MEDS: enoxaparin 40 mg/0.4 mL Syringe SUBCUT (08:14)
--- NOTE | 2023-08-19 10:12 | P.PN_ITS ---
Subjective 2 Subjective: This morning patient is requiring BiPAP for hypercapnic respiratory failure Patient is agreeable to go to rehab, he does have sleep study referral from Wednesday Patient wants [place] intermediate and wants transportation for sleep study center Vitals/I&O/Wt Last Vital Signs Temp 97.6 F 08/19/23 07:31 Pulse 76 08/19/23 08:36 Resp 22 H 08/19/23 08:34 BP 114/72 08/19/23 09:21 Pulse Ox 91 08/19/23 09:21 O2 Del Method Nasal Cannula 08/19/23 09:21 O2 Flow Rate 2.5 08/19/23 08:00 FiO2 30 08/19/23 08:36 08/18/23 08/19/23 08/19/23 22:59 06:59 14:59 Intake Total 900 / 1190 240 / 1430 240 / 240 Output Total 1300 / 1300 500 / 1800 Balance -400 / -110 -260 / -370 240 / 240 Physical Exam 2 Narrative: Patient is on BiPAP Able to answer questions Lower extremity covered with dressing GCS 15 nonfocal neuroexam Able to comprehend Does have disease making capacity S1, S2 Not complaining of neck pain today Urinary Catheter Management: Jeffery: Cath Placed During This Visit: yes Reason for Continuing Indwelling Catheter: Other Urinary Catheter Date of Insertion: 08/16/23 Urinary Catheter Time of Insertion: 22:45 Data 08/19/23 04:56 08/19/23 04:56 Micro: Microbiology 08/17/23 05:00 Gram Stain - Final Sputum - Expectorated Sputum Sputum Culture - Preliminary A&P Assessment and plan (1) Hypertension: (2) CHF exacerbation: (3) Pulmonary embolism: Qualifiers: Pulmonary embolism type: single subsegmental (without acute cor pulmonale) Qualified Code(s): I26.93 - Single subsegmental pulmonary embolism without acute cor pulmonale (4) Obesity, morbid: (5) Constipation: (6) Bladder mass: (7) Bilateral leg weakness: (8) Venous stasis ulcer: (9) Altered mental status: (10) Respiratory failure: Qualifiers: Chronicity: acute Respiratory failure complication: hypercapnia Qualified Code(s): J96.02 - Acute respiratory failure with hypercapnia (11) Acute on chronic respiratory failure with hypoxia and hypercapnia: (12) COPD exacerbation: (13) Obstructive sleep apnea: (14) Lymphedema: Plan Recurrent hypoxic hypercapnic respite failure During hospitalization he became hypercapnic I cannot imagine that patient will stay stable at home I would definitely recommend nursing placement where he can get BiPAP Home [employer] has not approved BiPAP because his overnight pulse ox study did not show hypoxia for more than 5 minutes, this is a very difficult situation for the patient where it is a matter of respiratory and cardiac arrest and we not able to get his BiPAP approved by the company I convinced patient to consider intermediate placement he is agreeable today asking for [place] He does have sleep study referral on Wednesday which was arranged on previous discharge Currently patient is on BiPAP Discontinue morphine Diastolic CHF: Fluid overload status improving signs of contraction alkalosis present which I think is part of compensation to hypercapnia Venous stasis dermatitis nonpurulent cellulitis central Daily dressing change with wet-to-dry Compression wraps Antibiotic de-escalated to Augmentin Normotensive GI soft diet Will request ABG for tomorrow No need to repeat labs Full code Disposition: I am afraid patient is not considered safe to return home, we are trying to arrange intermediate placement I have notified his brother as well who is in agreement with the above-mentioned plan Attestations 2 Medical Necessity Statement*: Continue medical management Diagnoses Hypertension I10 CHF exacerbation I50.9 Single subsegmental pulmonary embolism without acute cor pulmonale I26.93 Pulmonary embolism type: single subsegmental (without acute cor pulmonale) Obesity, morbid E66.01 Constipation K59.00 Bladder mass N32.89 Bilateral leg weakness R29.898 Venous stasis ulcer I83.009; L97.909 Altered mental status R41.82 Respiratory failure J96.02 Chronicity: acute Respiratory failure complication: hypercapnia Acute on chronic respiratory failure with hypoxia and hypercapnia J96.21; J96.22 COPD exacerbation J44.1 Obstructive sleep apnea G47.33 Lymphedema I89.0
[2023-08-19] MEDS: ondansetron 2 mg/ML SDV 2 mL 4 MG IVP ×2 (15:51→20:13)
[2023-08-19] MEDS: ALPRAZolam 0.5 mg Tablet PO (20:03)
[2023-08-19] MEDS: FUROsemide 10 mg/mL SDV 4mL 40 MG IVP (20:03)
--- NOTE | 2023-08-19 20:38 | CTR_ITS ---
PROCEDURE INFORMATION: Exam: CT Abdomen And Pelvis Without Contrast Exam date and time: 08/19/2023 9:12 PM Age: 68 years old Clinical indication: Bloating; Additional info: New onset abd pain and distention TECHNIQUE: Imaging protocol: Computed tomography of the abdomen and pelvis without contrast. Radiation optimization: All CT scans at this facility use at least one of these dose optimization techniques: automated exposure control; mA and/or kV adjustment per patient size (includes targeted exams where dose is matched to clinical indication); or iterative reconstruction. COMPARISON: CT abdomen pelvis wo con [id number] 04/17/2023 12:18 PM RADIATION DOSE METRICS: Total DLP (mGy-cm): 1160 FINDINGS: Lungs: Similar chronic elevation of the right hemidiaphragm with bronchiectasis and subsegmental atelectasis in the right lung base. There is atelectasis in the left lung base. Calcified granuloma in the right lung base. Coronary arteries: There is mild coronary artery calcifications involving the LAD and left circumflex arteries. Liver: Normal. No mass. Gallbladder and bile ducts: Normal. No calcified stones. No ductal dilation. Pancreas: Normal. No ductal dilation. Spleen: Calcified granuloma in the spleen. There is a 1.6 cm splenule at the medial inferior aspect the spleen. Adrenal glands: Normal. No mass. Kidneys and ureters: Stable cortical simple cysts arising from the interpolar region of the right kidney measuring 5.6 cm. Stable cortical lesion in the lower pole of the right kidney measuring 1.5 cm. Stomach and bowel: There is gaseous distension of the colon and terminal ileum with no transition zone to suggest obstruction. There is diverticulosis but no changes of diverticulitis. Appendix: No evidence of appendicitis. Intraperitoneal space: Unremarkable. No free air. No significant fluid collection. Vasculature: There are vascular calcifications. Lymph nodes: Similar prominent inguinal, pelvic and retroperitoneal lymph nodes. Calcified mediastinal lymph nodes. Urinary bladder: Jeffery catheter is on the bladder which is underdistended and contains pockets of air related catheterization. Reproductive: Unremarkable as visualized. Bones/joints: There is mild degenerative disease of both hip joints. There is a right pubic bone island. Enthesophytes of the iliac crest. There is mild curvature of the lumbar spine convex to the left. There is multilevel [id number] degenerative disease of the lumbar spine. Changes of DISH with multilevel anterior osteophytes in the thoracic spine. Soft tissues: Redemonstrated diastasis of the lower abdominal wall stabilized by abdominal wall mesh. Moderate degenerative disease of bilateral sacroiliac joints and symphysis pubis. CT/CT abdomen pelvis wo con [id number] IMPRESSION: 1. Moderate gaseous distension of the colon and distal small bowel suggestive of ileus. No transition zone to suggest obstruction. 2. Similar lymphadenopathy in the pelvis and abdomen.
[2023-08-19] MEDS: pantoprazole 40 mg SDV IVP (22:25)
[2023-08-20] VITALS (16 sets, daily range): BP systolic 122–153; BP diastolic 72–93; PULSE 79–94; RESP 14–21; TEMP 36.4–37.2; O2SAT 92–98
[2023-08-20] MEDS: ipratropium-albuterol 3 mL Neb INHALATION ×4 (02:42→19:57)
[2023-08-20 04:19] LABS: ABG PH Result 7.34 (7.35-7.45); Arterial Blood Gas Hematocrit 50.6 % (42-52); Base Excess ABG 11.6 mmol/L (-2.0-2.0); Blood Gas Allen Test Pos; Blood Gas Operator Identificat JB; Blood Gas Sample Site Radial, right; Blood Gas Sample Type Arterial; HCO3 ABG 41.7 mmol/L (22-26); Oxygen Device BIPAP; PO2 ABG 73.1 mmHg (80.0-100.0); PO2 FiO2 Ratio Arterial Blood 0
[2023-08-20 04:20] LABS: ABG PCO2 77.5 mmHg (35-45)
[2023-08-20] MEDS: amoxicillin-clav 875-125 mg Tablet 1 TAB PO (08:41)
[2023-08-20] MEDS: ketorolac 30 mg/mL INJ 15 MG IVP (08:41)
[2023-08-20] MEDS: bumetanide 1 mg Tablet PO (08:42)
[2023-08-20] MEDS: doxycycline 100 mg Tablet PO ×2 (08:42→17:40)
[2023-08-20] MEDS: sennosides-docusate Tablet 1 TAB PO (08:42)
[2023-08-20] MEDS: enoxaparin 40 mg/0.4 mL Syringe SUBCUT (08:43)
--- NOTE | 2023-08-20 08:56 | PM.PN ---
Subjective Subjective: Patient this morning is wanting to eat, I explained what ileus is but he mostly has gastric air distention and gaseous distention of bowel, willing to do clear liquid trial today Off BiPAP this morning pCO2 improved Awaiting SNF placement Patient stating that his last bowel movement was yesterday but it was a small one Vitals/I&O/Wt Last Vital Signs Temp 97.8 F 08/20/23 07:41 Pulse 87 08/20/23 08:20 Resp 18 08/20/23 08:00 BP 132/91 08/20/23 07:41 Pulse Ox 92 08/20/23 08:00 O2 Del Method Nasal Cannula 08/20/23 08:00 O2 Flow Rate 3 08/20/23 08:00 FiO2 30 08/20/23 04:04 08/19/23 08/20/23 08/20/23 22:59 06:59 14:59 Output Total 500 / 500 Balance -500 / -20 Physical Exam Narrative: Signs of fluid overload improving Skin wrinkling noted Lower extremities covered with dressing GCS 15 NIH 0 Currently on 3 L Able to comprehend Abdomen distended on auscultation a lot of gaseous distention Positive bowel sounds Urinary Catheter Management: Jeffery: Cath Placed During This Visit: yes Reason for Continuing Indwelling Catheter: Accurate Measurement of Urinary Output in Critically Ill Patients Urinary Catheter Date of Insertion: 08/16/23 Urinary Catheter Time of Insertion: 22:45 Data 08/19/23 04:56 08/19/23 04:56 Micro: Microbiology 08/17/23 05:00 Gram Stain - Final Sputum - Expectorated Sputum Sputum Culture - Final A&P Assessment and plan (1) CHF exacerbation: (2) Pulmonary embolism: Qualifiers: Pulmonary embolism type: single subsegmental (without acute cor pulmonale) Qualified Code(s): I26.93 - Single subsegmental pulmonary embolism without acute cor pulmonale (3) Obesity, morbid: (4) Constipation: (5) Venous stasis ulcer: (6) Bilateral leg weakness: (7) Altered mental status: (8) Obstructive sleep apnea: (9) Respiratory failure: Qualifiers: Chronicity: acute Respiratory failure complication: hypercapnia Qualified Code(s): J96.02 - Acute respiratory failure with hypercapnia (10) Acute on chronic respiratory failure with hypoxia and hypercapnia: (11) COPD exacerbation: (12) Lymphedema: (13) Ileus: Plan Ileus gastric distention, bowel distention Like related to use of significantly amount of BiPAP time throughout hospitalization Trial of clear liquids today Patient is passing gas, last bowel movement yesterday Repeat KUB by tomorrow Replenish electrolytes COPD exacerbation 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 Unfortunately [employer] is not approving his BiPAP at this point because he has not desaturated more than 5 minutes overnight on his 3 L baseline home oxygen requirement My neck step is to arrange alf placement for him and get him to sleep center on Wednesday to get sleep study done in order to get BiPAP approved Preserve ejection fraction heart for exacerbation: Improving, skin wrinkling noted He can get a break from diuretics today Pelvic lymphadenopathy, concern for bladder mass in the past Urine retention, Jeffery catheter placed Recent CT abdomen pelvis did not comment on bladder mass however did comment on pelvic lymphadenopathy similar in size Venous stasis dermatitis I am using wet-to-dry dressing with Santyl every day Ideally he needs compression wraps Patient uses CPAP at night for sleep apnea Full code Awaiting placement DVT prophylaxis History of DVT/PE continued anticoagulating agent Attestations Medical Necessity Statement*: Continue medical hospitalization Diagnoses CHF exacerbation I50.9 Single subsegmental pulmonary embolism without acute cor pulmonale I26.93 Pulmonary embolism type: single subsegmental (without acute cor pulmonale) Obesity, morbid E66.01 Constipation K59.00 Venous stasis ulcer I83.009; L97.909 Bilateral leg weakness R29.898 Altered mental status R41.82 Obstructive sleep apnea G47.33 Respiratory failure J96.02 Chronicity: acute Respiratory failure complication: hypercapnia Acute on chronic respiratory failure with hypoxia and hypercapnia J96.21; J96.22 COPD exacerbation J44.1 Lymphedema I89.0 Ileus K56.7
--- NOTE | 2023-08-20 12:02 | PC.SOCIAL ---
IMM Updated Updated pt on IMM. No questions voiced. Provided pt a copy. Initialed, dated, & timed copy in chart.
--- NOTE | 2023-08-20 13:10 | PC.OT ---
Attempted OT treatment with pt on hold due to CO2 levels; will attempt again at later time.
[2023-08-20] MEDS: TRAMadol 50 mg Tablet PO (13:13)
[2023-08-21] VITALS (15 sets, daily range): BP systolic 122–150; BP diastolic 70–82; PULSE 63–85; RESP 15–20; TEMP 36.5–37.2; O2SAT 93–100
[2023-08-21] MEDS: TRAMadol 50 mg Tablet PO ×3 (01:01→16:39)
[2023-08-21] MEDS: ipratropium-albuterol 3 mL Neb INHALATION ×4 (03:06→19:24)
[2023-08-21] MEDS: ketorolac 30 mg/mL INJ 15 MG IVP (03:32)
[2023-08-21 04:26] LABS: Basophils % 0.4 %; Eosinophils # 0.1 10^3/uL (0.0-0.8); Hematocrit 44.3 % (37-53); Lymphocytes # 1.2 10^3/uL (0.8-4.8); Lymphocytes % 11.7 %; Mean Corpuscular HGB Conc 32.3 g/dL (30-55); Mean Corpuscular Hemoglobin 30.5 pg (27-33); Mean Corpuscular Volume 94.5 fl (82-101); Mean Platelet Volume 8.7 fL (7.4-10.4); Monocytes # 0.9 10^3/uL (0.2-0.9); Monocytes % 8.7 %; Neutrophils # 7.76 10^3/uL (1.8-7.7); Neutrophils % 77.8 %; Nucleated Red Blood Cells % 0 %; Platelet Count 254 10^3/cmm (157-399); Red Blood Count 4.69 10^6/uL (3.85-5.65); Red Cell Distribution Width 12.8 % (12.1-15.1); White Blood Count 9.98 10^3/uL (3.29-11.43)
[2023-08-21 04:47] LABS: Anion Gap 10.6 (5-19); Blood Urea Nitrogen 24 mg/dL (8-23); Calcium 9.1 mg/dL (8.5-10.5); Carbon Dioxide 38 mmol/L (22-29); Chloride 91 mmol/L (98-107); Creatinine Clr Calc Pharmacy 110.0914; Glomerular Filtration Rate 166.4 mL/min (90-130); Glucose 99 mg/dL (65-115); Osmolality Calculated 286 mOsm/kg (285-295); Potassium 3.6 mmol/L (3.5-5.1); Sodium 136 mmol/L (136-145)
--- NOTE | 2023-08-21 05:46 | PC.NURSE ---
Patient did not have a good night. Patient was up in a recliner with his feet on the floor. Patient was taken off of his bipap mask for approximately 7 minutes before RT entered and sternal rubbed patient's chest. Patient did not respond to RT. Patient was placed back on bipap by RT and nursing staff and patient was communicated to that patient needs to stay on the bipap throughout the night and only taken off for brief seconds for small sips of water. Patient came around about 30-45 minutes later and was encouraged to get in the bed, that his neighbor and friend had asked about it. Patient was agreeable. Patient transferred to the bedside commode first. Patient did not want to get into bed at this time stating it will kill him. Patient finally agreed after nursing staff stated we could keep his head elevated and reposition him with pillows. Patient became anxious and agitated throughout the night. Patient was educated that this nurse was not comfortable getting patient up into chair because his respiratory state was very fragile since he was not responsive only after 7 minutes of being off bipap. Patient stated he was hurting. This nurse showed empathy and told patient that the pain was understood and that he could have some pain medication and be repositioned to help ease the pain. Patient still became more agitated and started yelling at this nurse through the bipap mask and shaking patient's bed rail. Education was reiterated to patient about his fragile respiratory state. Patient stated, Fine! I'll do it myself. This nurse explained to the patient that if he were to get up by himself, he would fall, and his mask would come off, and he could potentially from respiratory arrest. Patient again began yelling at this nurse to get him up. Patient was reeducated by multiple nursing staff. Dr. Ray was notified and pain medication was ordered. Patient was able to sleep for a few hours after receiving medication.
--- NOTE | 2023-08-21 07:00 | XRR_ITS ---
PROCEDURE INFORMATION: Exam: XR Abdomen Exam date and time: 08/21/2023 10:16 AM Age: 68 years old Clinical indication: Bloating; Additional info: Ileus TECHNIQUE: Imaging protocol: Radiologic exam of the abdomen. Views: Frontal supine view of the abdomen. 1 View. COMPARISON: CT abdomen pelvis wo con [id number] 08/19/2023 9:12 PM FINDINGS: Gastrointestinal tract: There is gas distension of the stomach and transverse colon. There is gas distension of small bowel in the central abdomen. Gaseous distension of bowel is diffusely decreased since 08/19/2023. Intraperitoneal space: No visible free air. Bones/joints: Thoracolumbar scoliosis and degenerative disease is partially obscured. XR/XR KUB portable [id number] IMPRESSION: Diffusely decreased gaseous distension of bowel since 08/19/2023.
[2023-08-21] MEDS: doxycycline 100 mg Tablet PO ×2 (08:43→16:39)
[2023-08-21] MEDS: bumetanide 1 mg Tablet PO (08:43)
[2023-08-21] MEDS: enoxaparin 40 mg/0.4 mL Syringe SUBCUT (08:43)
[2023-08-21] MEDS: sennosides-docusate Tablet 1 TAB PO (08:44)
[2023-08-21] MEDS: acetaZOLAMIDE 250 mg Tablet PO (13:30)
[2023-08-21 14:49] LABS: Base Excess VBG 13.5 mmol/L (-3.0-3.0); Blood Gas Operator Identificat GD; Blood Gas Sample Site Not specified; Blood Gas Sample Type Venous; HCO3 VBG 41.4 mmol/L (24-28); Oxygen Device NC; PO2 VBG 73.1 mmHg (25-40); pH VBG 7.42 (7.32-7.42)
[2023-08-21 14:50] LABS: PCO2 VBG 64.2 mmHg (41-51)
--- NOTE | 2023-08-21 15:05 | P.PN_ITS ---
Subjective 2 Subjective: Patient endorses shortness of breath. Denies fevers or chills. On clear liquid diet. Reports abdominal symptoms are improving. Willing to try solid food today. Medications: Reviewed: Yes Vitals/I&O/Wt Last Vital Signs Temp 97.7 F 08/21/23 11:52 Pulse 85 08/21/23 14:10 Resp 16 08/21/23 14:00 BP 124/73 08/21/23 11:52 Pulse Ox 95 08/21/23 14:00 O2 Del Method BiPAP 08/21/23 14:00 O2 Flow Rate 4 08/21/23 08:00 FiO2 30 08/21/23 14:00 08/21/23 08/21/23 08/21/23 06:59 14:59 22:59 Intake Total 240 / 240 Output Total 1000 / 1000 Balance -1000 / -40 240 / 240 Weight last 48 hrs Weight 108.182 kg Physical Exam 2 Narrative: General: Patient is awake. Sitting in bedside chair. Head: Normocephalic. Atraumatic. EOM intact. Neck: No JVD. Cardiovascular: RRR. No gallops. No murmurs. 2+ pitting edema.. Lungs: Breath sounds diminished in bilateral bases, no use of accessory muscles, no crackles or wheezes. On supplemental oxygen support. Skin: No jaundice. No rashes. Abdomen: Normal bowel sounds, abdomen soft and nontender. Genito Urinary: Genital exam not performed since complaints not related. Rectal: Rectal exam not performed since no symptoms indicated blood loss. Extremities: No cyanosis or clubbing. Musculoskeletal: 5/5 strength, normal range of motion, no swollen or erythematous joints. Neurological: Moves all 4 extremities. No myoclonus. Urinary Catheter Management: Jeffery: Cath Placed During This Visit: yes Reason for Continuing Indwelling Catheter: Chronic Indwelling Urinary Catheter on Admission Urinary Catheter Date of Insertion: 08/16/23 Urinary Catheter Time of Insertion: 22:45 Data 08/21/23 03:39 08/21/23 03:39 Micro: Microbiology 08/16/23 13:34 Blood Culture - Final Blood NO GROWTH AFTER 5 DAYS 08/16/23 13:30 Blood Culture - Final Blood NO GROWTH AFTER 5 DAYS A&P Assessment and plan (1) CHF exacerbation: (2) Pulmonary embolism: Qualifiers: Pulmonary embolism type: single subsegmental (without acute cor pulmonale) Qualified Code(s): I26.93 - Single subsegmental pulmonary embolism without acute cor pulmonale (3) Obesity, morbid: (4) Constipation: (5) Venous stasis ulcer: (6) Bilateral leg weakness: (7) Altered mental status: (8) Obstructive sleep apnea: (9) Respiratory failure: Qualifiers: Chronicity: acute Respiratory failure complication: hypercapnia Qualified Code(s): J96.02 - Acute respiratory failure with hypercapnia (10) Acute on chronic respiratory failure with hypoxia and hypercapnia: (11) COPD exacerbation: (12) Lymphedema: (13) Ileus: Plan Gastric distention vs ileus -KUB improved -Advance to solid diet -Monitor for worsening condition -Correct electrolytes as needed COPD exacerbation 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 -Continue BiPAP -Sleep study possibly Wednesday, will need to clarify -Check Procal Acute on chronic HFpEF -IV Bumex -Trial of diamox -Strict I&O -Daily weights -Check BNP Pelvic lymphadenopathy, concern for bladder mass in the past Urine retention -Recent CT abdomen pelvis did not comment on bladder mass however did comment on pelvic lymphadenopathy similar in size -Continue Jeffery catheter; anticipate voiding trial prior to dc Venous stasis dermatitis -Wound care -Would benefit from wrapping Sleep apnea -He uses home CPAP Debility and physical deconditioning -Encourage ambulation Full code DVT prophylaxis History of DVT/PE continued anticoagulating agent Attestations 2 Medical Necessity Statement*: Pt requires ongoing hospitalization for IV diuresis, BiPAP, electrolyte management, and treatment of ileus. Coding Level of Care Code Acute Code for Chg Fwd Diagnoses CHF exacerbation I50.9 Single subsegmental pulmonary embolism without acute cor pulmonale I26.93 Pulmonary embolism type: single subsegmental (without acute cor pulmonale) Obesity, morbid E66.01 Constipation K59.00 Venous stasis ulcer I83.009; L97.909 Bilateral leg weakness R29.898 Altered mental status R41.82 Obstructive sleep apnea G47.33 Respiratory failure J96.02 Chronicity: acute Respiratory failure complication: hypercapnia Acute on chronic respiratory failure with hypoxia and hypercapnia J96.21; J96.22 COPD exacerbation J44.1 Lymphedema I89.0 Ileus K56.7
[2023-08-21 15:31] LABS: NT Pro B Type Natriuretic Pept 347 pg/mL (0-125); Procalcitonin 0.09 ng/mL (0-0.5)
[2023-08-21] MEDS: TRAMadol 50 mg Tablet 100 MG PO (22:50)
[2023-08-22] VITALS (13 sets, daily range): BP systolic 114–130; BP diastolic 72–84; PULSE 54–80; RESP 14–18; TEMP 36.1–36.8; O2SAT 94–99
[2023-08-22] MEDS: ipratropium-albuterol 3 mL Neb INHALATION ×4 (03:02→20:00)
[2023-08-22 03:25] LABS: Albumin Level 3.5 g/dL (3.5-5.2); Anion Gap 7.5 (5-19); Blood Urea Nitrogen 23 mg/dL (8-23); Carbon Dioxide 39 mmol/L (22-29); Chloride 90 mmol/L (98-107); Creatinine Clr Calc Pharmacy 110.0914; Glomerular Filtration Rate 166.4 mL/min (90-130); Glucose 113 mg/dL (65-115); Phosphorus 3.2 mg/dL (2.5-4.5); Potassium 3.5 mmol/L (3.5-5.1); Sodium 133 mmol/L (136-145)
[2023-08-22 03:39] LABS: ABG PH Result 7.35 (7.35-7.45); Alveolar-Arterial Oxygen Gradi 4.4 mmHg (5-10); Arterial Blood Gas Hematocrit 46.4 % (42-52); Base Excess ABG 11.9 mmol/L (-2.0-2.0); Blood Gas Allen Test Pos; Blood Gas Sample Site Radial, left; Blood Gas Sample Type Arterial; HCO3 ABG 41.2 mmol/L (22-26); HGB O2 Sat 96.1 % (95-100); Ionized Calcium Level - ABG 1.2 mmol/L (1.1-1.4); Methemoglobin 0.3 % (0.4-1.5); Oxygen Device BIPAP; Oxygen Saturation ABG 97.4; PO2 ABG 90.3 mmHg (80.0-100.0); PO2 FiO2 Ratio Arterial Blood 0; Potassium Level - ABG 3.4 mmol/L (3.5-5.0); Total Hemoglobin 15.1 g/dL (14-18)
[2023-08-22 03:44] LABS: ABG PCO2 73.9 mmHg (35-45)
[2023-08-22] MEDS: enoxaparin 40 mg/0.4 mL Syringe SUBCUT (08:59)
[2023-08-22] MEDS: TRAMadol 50 mg Tablet 100 MG PO (08:59)
[2023-08-22] MEDS: acetaZOLAMIDE 250 mg Tablet PO (09:00)
[2023-08-22] MEDS: sennosides-docusate Tablet 1 TAB PO (09:00)
[2023-08-22] MEDS: doxycycline 100 mg Tablet PO ×2 (09:00→17:25)
[2023-08-22] MEDS: bumetanide 0.25 mg/mL SDV 4 mL 1 MG IVP (09:12)
[2023-08-22] MEDS: HYDROcodone-acetaminophen 5-325 mg Tablet 1 TAB PO (15:47)
--- NOTE | 2023-08-22 16:53 | P.PN_ITS ---
Subjective 2 Subjective: Patient endorses shortness of breath. Denies fevers or chills. On clear liquid diet. Reports abdominal symptoms are improving. Willing to try solid food today. Medications: Reviewed: Yes Vitals/I&O/Wt Last Vital Signs Temp 98.3 F 08/22/23 15:16 Pulse 75 08/22/23 15:16 Resp 18 08/22/23 15:16 BP 125/84 08/22/23 15:16 Pulse Ox 99 08/22/23 15:16 O2 Del Method Nasal Cannula 08/22/23 15:16 O2 Flow Rate 4 08/22/23 13:52 FiO2 30 08/22/23 03:04 08/22/23 08/22/23 08/22/23 06:59 14:59 22:59 Intake Total 960 / 960 Output Total 700 / 1875 Balance -700 / -1635 960 / 960 Weight last 48 hrs Weight 108.182 kg Physical Exam 2 Narrative: General: Patient is awake. Sitting in bedside chair. Head: Normocephalic. Atraumatic. EOM intact. Neck: No JVD. Cardiovascular: RRR. No gallops. No murmurs. 2+ pitting edema.. Lungs: Breath sounds diminished in bilateral bases, no use of accessory muscles, no crackles or wheezes. On supplemental oxygen support. Skin: No jaundice. No rashes. Abdomen: Normal bowel sounds, abdomen soft and nontender. Genito Urinary: Genital exam not performed since complaints not related. Rectal: Rectal exam not performed since no symptoms indicated blood loss. Extremities: No cyanosis or clubbing. Musculoskeletal: 5/5 strength, normal range of motion, no swollen or erythematous joints. Neurological: Moves all 4 extremities. No myoclonus. Urinary Catheter Management: Jeffery: Cath Placed During This Visit: yes Reason for Continuing Indwelling Catheter: Chronic Indwelling Urinary Catheter on Admission Urinary Catheter Date of Insertion: 08/16/23 Urinary Catheter Time of Insertion: 22:45 Data 08/21/23 03:39 08/22/23 02:24 Micro: Microbiology 08/16/23 13:34 Blood Culture - Final Blood NO GROWTH AFTER 5 DAYS 08/16/23 13:30 Blood Culture - Final Blood NO GROWTH AFTER 5 DAYS A&P Assessment and plan (1) CHF exacerbation: (2) Pulmonary embolism: Qualifiers: Pulmonary embolism type: single subsegmental (without acute cor pulmonale) Qualified Code(s): I26.93 - Single subsegmental pulmonary embolism without acute cor pulmonale (3) Obesity, morbid: (4) Constipation: (5) Venous stasis ulcer: (6) Bilateral leg weakness: (7) Altered mental status: (8) Obstructive sleep apnea: (9) Respiratory failure: Qualifiers: Chronicity: acute Respiratory failure complication: hypercapnia Qualified Code(s): J96.02 - Acute respiratory failure with hypercapnia (10) Acute on chronic respiratory failure with hypoxia and hypercapnia: (11) COPD exacerbation: (12) Lymphedema: (13) Ileus: Plan Gastric distention vs ileus -Tolerating regular diet -Advance to solid diet -Monitor for worsening condition -Correct electrolytes as needed COPD exacerbation 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 -Continue BiPAP -He is scheduled for outpatient sleep study on 08/28, they will prioritize symptoms cancellation -Check gas in a.m. Acute on chronic HFpEF -IV Bumex -Currently on trial of diamox -Strict I&O -Daily weights Pelvic lymphadenopathy, concern for bladder mass in the past Urine retention -Recent CT abdomen pelvis did not comment on bladder mass however did comment on pelvic lymphadenopathy similar in size -Continue Jeffery catheter; anticipate voiding trial prior to dc Venous stasis dermatitis -Wound care -May benefit from wrapping Sleep apnea -He uses home CPAP, he needs a BiPAP due to recurrent CO2 retention Debility and physical deconditioning -Continue therapy -Discussed with case management on Wednesday regarding his options, if goals return home, he may be ready by Wednesday or Wednesday pending clinical course Debility and physical deconditioning -Encourage ambulation Full code DVT prophylaxis Attestations 2 Medical Necessity Statement*: Patient requires ongoing hospitalization for BiPAP support, IV diuresis, electrolyte management, and supportive care. Coding Level of Care Code Acute Code for Chg Fwd Diagnoses CHF exacerbation I50.9 Single subsegmental pulmonary embolism without acute cor pulmonale I26.93 Pulmonary embolism type: single subsegmental (without acute cor pulmonale) Obesity, morbid E66.01 Constipation K59.00 Venous stasis ulcer I83.009; L97.909 Bilateral leg weakness R29.898 Altered mental status R41.82 Obstructive sleep apnea G47.33 Respiratory failure J96.02 Chronicity: acute Respiratory failure complication: hypercapnia Acute on chronic respiratory failure with hypoxia and hypercapnia J96.21; J96.22 COPD exacerbation J44.1 Lymphedema I89.0 Ileus K56.7
[2023-08-23] VITALS (14 sets, daily range): BP systolic 121–146; BP diastolic 77–88; PULSE 66–86; RESP 14–27; TEMP 36.4–36.6; O2SAT 90–100
[2023-08-23] MEDS: ipratropium-albuterol 3 mL Neb INHALATION ×4 (02:36→19:38)
[2023-08-23] MEDS: TRAMadol 50 mg Tablet 100 MG PO ×2 (03:36→11:54)
[2023-08-23] MEDS: acetaminophen 500 mg Tablet PO ×2 (03:36→18:32)
[2023-08-23 04:22] LABS: Albumin Level 3.6 g/dL (3.5-5.2); Anion Gap 9.8 (5-19); Blood Urea Nitrogen 22 mg/dL (8-23); Calcium 9.4 mg/dL (8.5-10.5); Carbon Dioxide 39 mmol/L (22-29); Chloride 94 mmol/L (98-107); Creatinine Clr Calc Pharmacy 110.0914; Glomerular Filtration Rate 134.8 mL/min (90-130); Glucose 115 mg/dL (65-115); Phosphorus 3.3 mg/dL (2.5-4.5); Potassium 3.8 mmol/L (3.5-5.1); Sodium 139 mmol/L (136-145)
[2023-08-23] MEDS: acetaZOLAMIDE 250 mg Tablet PO (08:48)
[2023-08-23] MEDS: doxycycline 100 mg Tablet PO (08:48)
[2023-08-23] MEDS: enoxaparin 40 mg/0.4 mL Syringe SUBCUT (08:49)
[2023-08-23] MEDS: sennosides-docusate Tablet 1 TAB PO (08:49)
[2023-08-23] MEDS: bumetanide 0.25 mg/mL SDV 4 mL 1 MG IVP (08:49)
--- NOTE | 2023-08-23 09:06 | PC.SOCIAL ---
IMM Update pg 2 of IMM updated and reviewed w/ patient. Copy provided and copy dated, initialed and placed in chart.
--- NOTE | 2023-08-23 12:47 | P.PN_ITS ---
Subjective 2 Subjective: Today we have called home medical equipment they are telling us that for insurance to approve BiPAP they absolutely need significant hypoxia overnight although we are recommending BiPAP for hypercapnia not hypoxic at this point I will go ahead and order another sleep study with his CPAP instead of 3 L nasal cannula Will ask RT My only concern is this patient is at high risk of readmission he cannot afford $300 private pay for his BiPAP No active emesis Vitals/I&O/Wt Last Vital Signs Temp 97.5 F L 08/23/23 12:00 Pulse 72 08/23/23 12:00 Resp 18 08/23/23 12:00 BP 121/77 08/23/23 12:00 Pulse Ox 95 08/23/23 12:00 O2 Del Method Nasal Cannula 08/23/23 12:00 O2 Flow Rate 4 08/23/23 08:21 FiO2 30 08/23/23 00:52 08/22/23 08/23/23 08/23/23 22:59 06:59 14:59 Intake Total 960 / 1920 1200 / 1200 Output Total 1500 / 1500 550 / 2050 550 / 550 Balance -540 / 420 -550 / -130 650 / 650 Physical Exam 2 Narrative: Patient is sitting in a recliner Awake alert Not confused Sign of fluid load improving No extremity covered with dressing Abdomen soft distended no active emesis Dry skin S1, S2 Currently on 3 L Urinary Catheter Management: Jeffery: Cath Placed During This Visit: yes Reason for Continuing Indwelling Catheter: Chronic Indwelling Urinary Catheter on Admission Urinary Catheter Date of Insertion: 08/16/23 Urinary Catheter Time of Insertion: 22:45 Data 08/21/23 03:39 08/23/23 02:40 Micro: Microbiology 08/23/23 00:00 Gram Stain - Final Arm - Drainage A&P Assessment and plan (1) Hypertension: (2) CHF exacerbation: (3) Pulmonary embolism: Qualifiers: Pulmonary embolism type: single subsegmental (without acute cor pulmonale) Qualified Code(s): I26.93 - Single subsegmental pulmonary embolism without acute cor pulmonale (4) Obesity, morbid: (5) Constipation: (6) Ileus: (7) Venous stasis ulcer: (8) Bilateral leg weakness: (9) Altered mental status: (10) Respiratory failure: Qualifiers: Chronicity: acute Respiratory failure complication: hypercapnia Qualified Code(s): J96.02 - Acute respiratory failure with hypercapnia (11) Acute on chronic respiratory failure with hypoxia and hypercapnia: (12) COPD exacerbation: (13) Obstructive sleep apnea: (14) Lymphedema: Plan I won't be able to discharge patient without making sure I have exhausted all the possible options to arrange BiPAP I will get another sleep study with a CPAP instead of 3 L nasal cannula that he is at home I will discontinue his IV meds, he can be transitioned to p.o. Bumex Signs of fluid load improving hold metolazone Bumex acetazolamide Patient's outpatient sleep study is at [facility] will try to call them as well they are stating that there are no cancellations and is scheduled for August 28 sleep study Called home: They are stating that he can do private pay $300 per month on to get approval from insurance Patient stating that he is not able to afford it He is full code Reevaluate with overnight pulse ox ABG in the morning He does not want to go to senior care Spoke with the caser, RT, Attestations 2 Medical Necessity Statement*: Spent a lot of time coordinating care and trying to arrange BiPAP Diagnoses Hypertension I10 CHF exacerbation I50.9 Single subsegmental pulmonary embolism without acute cor pulmonale I26.93 Pulmonary embolism type: single subsegmental (without acute cor pulmonale) Obesity, morbid E66.01 Constipation K59.00 Ileus K56.7 Venous stasis ulcer I83.009; L97.909 Bilateral leg weakness R29.898 Altered mental status R41.82 Respiratory failure J96.02 Chronicity: acute Respiratory failure complication: hypercapnia Acute on chronic respiratory failure with hypoxia and hypercapnia J96.21; J96.22 COPD exacerbation J44.1 Obstructive sleep apnea G47.33 Lymphedema I89.0
[2023-08-24] VITALS (12 sets, daily range): BP systolic 116–155; BP diastolic 70–86; PULSE 73–84; RESP 14–23; TEMP 36.4–37.2; O2SAT 90–99
[2023-08-24] MEDS: ipratropium-albuterol 3 mL Neb INHALATION ×3 (01:01→20:44)
--- NOTE | 2023-08-24 02:03 | PC.NURSE ---
Patient refusing to wear CPAP. Patient educated by RN and RT for extended period of time. Patient raised voice at staff during education.
[2023-08-24 05:13] LABS: ABG PH Result 7.38 (7.35-7.45); Arterial Blood Gas Hematocrit 47.9 % (42-52); Base Excess ABG 10.4 mmol/L (-2.0-2.0); Blood Gas Allen Test Pos; Blood Gas Operator Identificat JB; Blood Gas Sample Site Radial, right; Blood Gas Sample Type Arterial; HCO3 ABG 38.6 mmol/L (22-26); Oxygen Device BIPAP; PO2 ABG 77.3 mmHg (80.0-100.0); PO2 FiO2 Ratio Arterial Blood 0
[2023-08-24 05:14] LABS: ABG PCO2 64.8 mmHg (35-45)
[2023-08-24 05:47] LABS: Basophils # 0.1 10^3/uL (0.0-0.1); Basophils % 0.5 %; Eosinophils # 0.2 10^3/uL (0.0-0.8); Eosinophils % 1.9 %; Hematocrit 46.1 % (37-53); Lymphocytes # 1.1 10^3/uL (0.8-4.8); Lymphocytes % 11.3 %; Mean Corpuscular HGB Conc 31.9 g/dL (30-55); Mean Corpuscular Hemoglobin 30.4 pg (27-33); Mean Corpuscular Volume 95.4 fl (82-101); Mean Platelet Volume 8.9 fL (7.4-10.4); Monocytes # 1.1 10^3/uL (0.2-0.9); Monocytes % 10.4 %; Neutrophils # 7.61 10^3/uL (1.8-7.7); Neutrophils % 75.3 %; Nucleated Red Blood Cells % 0 %; Platelet Count 266 10^3/cmm (157-399); Red Blood Count 4.83 10^6/uL (3.85-5.65); Red Cell Distribution Width 12.7 % (12.1-15.1)
[2023-08-24 06:10] LABS: Anion Gap 12.6 (5-19); Blood Urea Nitrogen 19 mg/dL (8-23); Calcium 9.3 mg/dL (8.5-10.5); Carbon Dioxide 36 mmol/L (22-29); Chloride 93 mmol/L (98-107); Creatinine Clr Calc Pharmacy 110.0914; Glomerular Filtration Rate 166.4 mL/min (90-130); Glucose 93 mg/dL (65-115); Osmolality Calculated 288 mOsm/kg (285-295); Potassium 3.6 mmol/L (3.5-5.1); Sodium 138 mmol/L (136-145)
[2023-08-24] MEDS: TRAMadol 50 mg Tablet 100 MG PO ×3 (06:22→22:20)
[2023-08-24] MEDS: enoxaparin 40 mg/0.4 mL Syringe SUBCUT (10:00)
[2023-08-24] MEDS: sennosides-docusate Tablet 1 TAB PO (10:00)
[2023-08-24] MEDS: acetaminophen 500 mg Tablet PO (10:05)
--- NOTE | 2023-08-24 11:39 | P.PN_ITS ---
Subjective 2 Subjective: Patient is requiring BiPAP every night Compensated pH with compensated hypercapnia Signs of fluid load improved significantly No active nausea vomiting Vitals/I&O/Wt Last Vital Signs Temp 97.6 F 08/24/23 11:01 Pulse 82 08/24/23 11:01 Resp 16 08/24/23 11:01 BP 155/82 08/24/23 11:01 Pulse Ox 99 08/24/23 11:01 O2 Del Method Nasal Cannula 08/24/23 11:01 O2 Flow Rate 3 08/24/23 07:36 FiO2 30 08/24/23 01:02 08/23/23 08/24/23 08/24/23 22:59 06:59 14:59 Output Total 1650 / 2200 Balance -1650 / -1000 Physical Exam 2 Narrative: Signs of fluid load improving Lower extremity venous stasis dermatitis wrapped extremities S1, S2 Hemodynamic stable Currently on 3 L Dry mucous membranes Dry skin Urinary Catheter Management: Jeffery: Cath Placed During This Visit: yes Reason for Continuing Indwelling Catheter: Acute Urinary Retention or Obstruction Urinary Catheter Date of Insertion: 08/16/23 Urinary Catheter Time of Insertion: 22:45 Data 08/24/23 05:10 08/24/23 05:10 Micro: Microbiology 08/23/23 00:00 Gram Stain - Final Arm - Drainage A&P Assessment and plan (1) Hypertension: (2) CHF exacerbation: (3) Pulmonary embolism: Qualifiers: Pulmonary embolism type: single subsegmental (without acute cor pulmonale) Qualified Code(s): I26.93 - Single subsegmental pulmonary embolism without acute cor pulmonale (4) Obesity, morbid: (5) Constipation: (6) Ileus: (7) Venous stasis ulcer: (8) Bilateral leg weakness: (9) Altered mental status: (10) Respiratory failure: Qualifiers: Chronicity: acute Respiratory failure complication: hypercapnia Qualified Code(s): J96.02 - Acute respiratory failure with hypercapnia (11) Acute on chronic respiratory failure with hypoxia and hypercapnia: (12) COPD exacerbation: (13) Obstructive sleep apnea: (14) Lymphedema: Plan Compensated hypoxic hypercapnic resp failure Patient requires BiPAP every night We have sent documentation to the home medical equipment for BiPAP approval New pulse ox study has been submitted Patient is stating that in case this machine does not get approved he is willing to pay $300 for a month until he gets his sleep study done on 28 of August Diastolic CHF: Compensated Anasarca improving Ileus: Resolved PE/DVT continue would use Eliquis Chronic hypoxia requiring 3 L For dry skin recommended zinc oxide calamine Wound on lower extremities daily use of topical ointment, Santyl Attestations 2 Medical Necessity Statement*: Discharge once BiPAP gets approval Diagnoses Hypertension I10 CHF exacerbation I50.9 Single subsegmental pulmonary embolism without acute cor pulmonale I26.93 Pulmonary embolism type: single subsegmental (without acute cor pulmonale) Obesity, morbid E66.01 Constipation K59.00 Ileus K56.7 Venous stasis ulcer I83.009; L97.909 Bilateral leg weakness R29.898 Altered mental status R41.82 Respiratory failure J96.02 Chronicity: acute Respiratory failure complication: hypercapnia Acute on chronic respiratory failure with hypoxia and hypercapnia J96.21; J96.22 COPD exacerbation J44.1 Obstructive sleep apnea G47.33 Lymphedema I89.0
[2023-08-24] MEDS: apixaban 5 mg Tablet PO (19:26)
[2023-08-24] MEDS: ondansetron 2 mg/ML SDV 2 mL 4 MG IVP (19:26)
--- NOTE | 2023-08-24 19:34 | PC.NURSE ---
Patient educated on Eliquis. Patient stated I'm not taking that shit. Have you read the side effects on that? All I need to take is an aspirin. Patient educated on risks of not taking the medication. Patient states I'll take it, but I'm not buying it when I get out of here. It costs like $100. Patient educated that if he is not able to afford his medications outside of the hospital, that this is something we can discuss with the physician and social security assessor.
[2023-08-24] MEDS: oxymetazoline 0.05% Nasal Spray 15 mL 2 SPRAY NOSTRIL-B (21:00)
--- NOTE | 2023-08-24 21:30 | PC.NURSE ---
Patient refusing to wear telemetry/cardiac monitoring. Patient is on continuous pulse oximetry.
--- NOTE | 2023-08-24 22:24 | PC.NURSE ---
When this nurse administered PO medications and attempted to hand pill cup to patient, patient states I can't my neck hurts too bad. I put pills in patient's mouth for him per his request and picked up drink for him per his request. Approximately 1-2 minutes after this, I witnessed patient picking cup up to spit in it.
[2023-08-25] VITALS (15 sets, daily range): BP systolic 130–145; BP diastolic 76–96; PULSE 58–87; RESP 14–20; TEMP 36.3–36.9; O2SAT 92–97
[2023-08-25] MEDS: ipratropium-albuterol 3 mL Neb INHALATION ×3 (02:14→20:23)
[2023-08-25] MEDS: apixaban 5 mg Tablet PO ×2 (08:09→20:14)
[2023-08-25] MEDS: escitalopram 10 mg Tablet 20 MG PO (08:09)
[2023-08-25] MEDS: sennosides-docusate Tablet 1 TAB PO (08:09)
[2023-08-25] MEDS: TRAMadol 50 mg Tablet 100 MG PO ×2 (08:13→18:36)
--- NOTE | 2023-08-25 09:18 | PC.SOCIAL ---
IMM Update pg 2 of IMM updated and reviewed w/ patient. Copy provided and copy dated, initialed and placed in chart.
--- NOTE | 2023-08-25 09:59 | P.PN_ITS ---
Subjective 2 Subjective: Patient is sitting in a chair We can remove Jeffery catheter He is agreeable In case he does not get BiPAP approved from the insurance he is willing to pay $300 for 1 month only until he gets his sleep study done Vitals/I&O/Wt Last Vital Signs Temp 98.1 F 08/25/23 07:44 Pulse 87 08/25/23 08:28 Resp 20 H 08/25/23 08:17 BP 136/76 08/25/23 07:44 Pulse Ox 92 08/25/23 08:17 O2 Del Method Nasal Cannula 08/25/23 08:17 O2 Flow Rate 2 08/25/23 08:17 FiO2 30 08/25/23 04:41 08/24/23 08/25/23 08/25/23 22:59 06:59 14:59 Intake Total 480 / 480 480 / 480 Output Total 1050 / 1050 150 / 1200 Balance -570 / -570 -150 / -720 480 / 480 Physical Exam 2 Narrative: Sign of fluid load improving Jeffery catheter in place Anasarca improving Lower extremity venous's dermatitis Lymphedema wraps on on his legs Nonfocal neuroexam Urinary Catheter Management: Jeffery: Cath Placed During This Visit: yes Reason for Continuing Indwelling Catheter: Acute Urinary Retention or Obstruction Urinary Catheter Date of Insertion: 08/16/23 Urinary Catheter Time of Insertion: 22:45 Data 08/24/23 05:10 08/24/23 05:10 Micro: Microbiology 08/23/23 00:00 Gram Stain - Final Arm - Drainage Wound Culture - Preliminary A&P Assessment and plan (1) CHF exacerbation: (2) Pulmonary embolism: Qualifiers: Pulmonary embolism type: single subsegmental (without acute cor pulmonale) Qualified Code(s): I26.93 - Single subsegmental pulmonary embolism without acute cor pulmonale (3) Obesity, morbid: (4) Constipation: (5) Ileus: (6) Venous stasis ulcer: (7) Bilateral leg weakness: (8) Altered mental status: (9) Respiratory failure: Qualifiers: Chronicity: acute Respiratory failure complication: hypercapnia Qualified Code(s): J96.02 - Acute respiratory failure with hypercapnia (10) Acute on chronic respiratory failure with hypoxia and hypercapnia: (11) COPD exacerbation: (12) Obstructive sleep apnea: (13) Lymphedema: Plan Waiting on BiPAP approval Patient stating that he is willing to pay $300 in case BiPAP does not get approved Today we will remove Jeffery catheter Signs of fluid load improving significantly Using BiPAP every night Currently on 3 L at baseline Compression wraps daily dressing change with Santyl Ileus: Improved Attestations 2 Medical Necessity Statement*: Hopefully I will be able to discharge him once we get final verdict on BiPAP Diagnoses CHF exacerbation I50.9 Single subsegmental pulmonary embolism without acute cor pulmonale I26.93 Pulmonary embolism type: single subsegmental (without acute cor pulmonale) Obesity, morbid E66.01 Constipation K59.00 Ileus K56.7 Venous stasis ulcer I83.009; L97.909 Bilateral leg weakness R29.898 Altered mental status R41.82 Respiratory failure J96.02 Chronicity: acute Respiratory failure complication: hypercapnia Acute on chronic respiratory failure with hypoxia and hypercapnia J96.21; J96.22 COPD exacerbation J44.1 Obstructive sleep apnea G47.33 Lymphedema I89.0
[2023-08-25] MEDS: triamcinolone 0.1% cream 15 gm 1 APPLIC TOPICAL (12:59)
[2023-08-25] MEDS: ondansetron 2 mg/ML SDV 2 mL 4 MG IVP (15:33)
[2023-08-25] MEDS: acetaminophen 500 mg Tablet PO (21:11)
[2023-08-26] VITALS (13 sets, daily range): BP systolic 124–147; BP diastolic 76–81; PULSE 69–85; RESP 14–21; TEMP 36.6–36.8; O2SAT 90–98
[2023-08-26] MEDS: ipratropium-albuterol 3 mL Neb INHALATION ×4 (02:26→20:35)
[2023-08-26] MEDS: TRAMadol 50 mg Tablet 100 MG PO ×3 (04:52→21:09)
[2023-08-26 05:37] LABS: Base Excess VBG 8.8 mmol/L (-3.0-3.0); Blood Gas Sample Site Not specified; Blood Gas Sample Type Venous; HCO3 VBG 37.9 mmol/L (24-28); PO2 VBG 46.8 mmHg (25-40); Venous Blood Gas Hematocrit 49.9 % (42-52); pH VBG 7.34 (7.32-7.42)
[2023-08-26 05:39] LABS: Oxygen Device NC
[2023-08-26 05:41] LABS: PCO2 VBG 69.9 mmHg (41-51)
[2023-08-26] MEDS: ondansetron 2 mg/ML SDV 2 mL 4 MG IVP ×2 (05:44→15:55)
[2023-08-26] MEDS: escitalopram 10 mg Tablet 20 MG PO (08:46)
[2023-08-26] MEDS: apixaban 5 mg Tablet PO ×2 (08:46→21:09)
[2023-08-26] MEDS: sennosides-docusate Tablet 1 TAB PO (08:47)
[2023-08-26] MEDS: acetaminophen 500 mg Tablet PO ×2 (08:52→21:10)
[2023-08-26] MEDS: triamcinolone 0.1% cream 15 gm 1 APPLIC TOPICAL ×2 (08:52→18:08)
--- NOTE | 2023-08-26 11:02 | P.PN_ITS ---
Subjective 2 Subjective: Patient doing fine We are waiting on approval for per BiPAP No plan to change medications today Continue Eliquis VBG noted Vitals/I&O/Wt Last Vital Signs Temp 97.9 F 08/26/23 08:00 Pulse 80 08/26/23 08:04 Resp 18 08/26/23 08:00 BP 124/77 08/26/23 08:00 Pulse Ox 98 08/26/23 08:00 O2 Del Method Nasal Cannula 08/26/23 08:00 O2 Flow Rate 2 08/26/23 07:57 FiO2 30 08/26/23 02:10 08/25/23 08/26/23 08/26/23 22:59 06:59 14:59 Intake Total 340 / 1060 200 / 1260 Balance 340 / 910 200 / 1110 Physical Exam 2 Narrative: Patient takes time to answer questions however answers appropriately I do not suspect significant confusion No stroke related symptoms Signs of fluid load improving Lower extremity stasis, cellulitis, improving Lymphedema wraps Currently on 3 L Urinary Catheter Management: Jeffery: Cath Placed During This Visit: yes, but has since been removed by the nurse Reason for Continuing Indwelling Catheter: Acute Urinary Retention or Obstruction Urinary Catheter Date of Insertion: 08/16/23 Urinary Catheter Time of Insertion: 22:45 Date Urinary Catheter Removed: 08/25/23 Time Urinary Catheter Discontinued: 11:05 Data 08/24/23 05:10 08/24/23 05:10 Micro: Microbiology 08/23/23 00:00 Gram Stain - Final Arm - Drainage Wound Culture - Preliminary A&P Assessment and plan (1) Hypertension: (2) CHF exacerbation: (3) Pulmonary embolism: Qualifiers: Pulmonary embolism type: single subsegmental (without acute cor pulmonale) Qualified Code(s): I26.93 - Single subsegmental pulmonary embolism without acute cor pulmonale (4) Obesity, morbid: (5) Constipation: (6) Ileus: (7) Venous stasis ulcer: (8) Bilateral leg weakness: (9) Altered mental status: (10) COPD exacerbation: (11) Obstructive sleep apnea: (12) Lymphedema: (13) Acute on chronic respiratory failure with hypoxia and hypercapnia: Plan COPD exacerbation: Compensated Waiting for BiPAP approval He will be discharged home once he get approved Will continue Eliquis for history of PE Ileus: Resolved No plan to change medications today normotensive Doing well on 3 L Attestations 2 Medical Necessity Statement*: Continue medical management Coding Level of Care Code Acute Code for Chg Fwd Diagnoses Hypertension I10 CHF exacerbation I50.9 Single subsegmental pulmonary embolism without acute cor pulmonale I26.93 Pulmonary embolism type: single subsegmental (without acute cor pulmonale) Obesity, morbid E66.01 Constipation K59.00 Ileus K56.7 Venous stasis ulcer I83.009; L97.909 Bilateral leg weakness R29.898 Altered mental status R41.82 COPD exacerbation J44.1 Obstructive sleep apnea G47.33 Lymphedema I89.0 Acute on chronic respiratory failure with hypoxia and hypercapnia J96.21; J96.22
[2023-08-27] VITALS (7 sets, daily range): BP systolic 132–163; BP diastolic 78–84; PULSE 70–84; RESP 16–19; TEMP 36.4–36.8; O2SAT 89–98; BMI 35.2
[2023-08-27] MEDS: TRAMadol 50 mg Tablet 100 MG PO (03:42)
[2023-08-27] MEDS: acetaminophen 500 mg Tablet PO (03:43)
[2023-08-27] MEDS: sennosides-docusate Tablet 1 TAB PO (07:55)
[2023-08-27] MEDS: apixaban 5 mg Tablet PO (07:56)
[2023-08-27] MEDS: escitalopram 10 mg Tablet 20 MG PO (07:56)
[2023-08-27] MEDS: triamcinolone 0.1% cream 15 gm 1 APPLIC TOPICAL (08:00)
[2023-08-27] MEDS: ipratropium-albuterol 3 mL Neb INHALATION (09:06)
--- NOTE | 2023-08-27 10:35 | PC.SOCIAL ---
IMM Update pg 2 of IMM updated and reviewed w/ patient. Copy provided and copy dated, initialed and placed in chart.
--- NOTE | 2023-08-27 12:50 | P.DS_ITS ---
Discharge Providers Date of Admission: 08/16/23 17:39 Date of Discharge: Gee 2023 Attending Provider at Admission: Uriel Pascual MD Attending Provider at Discharge: Uriel Pascual MD Primary Care Provider: Ed Branch Diagnoses at Discharge Discharge Diagnosis (1) CHF exacerbation: Status: Acute (2) Pulmonary embolism: Status: Acute Qualifiers: Pulmonary embolism type: single subsegmental (without acute cor pulmonale) Qualified Code(s): I26.93 - Single subsegmental pulmonary embolism without acute cor pulmonale (3) Obesity, morbid: Status: Acute (4) Constipation: Status: Acute (5) Ileus: Status: Acute (6) Venous stasis ulcer: Status: Acute (7) Bilateral leg weakness: Status: Acute (8) Altered mental status: Status: Acute (9) Respiratory failure: Status: Acute Qualifiers: Chronicity: acute Respiratory failure complication: hypercapnia Qualified Code(s): J96.02 - Acute respiratory failure with hypercapnia (10) Acute on chronic respiratory failure with hypoxia and hypercapnia: Status: Acute (11) COPD exacerbation: Status: Acute (12) Obstructive sleep apnea: Status: Acute (13) Lymphedema: Status: Acute Permanent problem details: -has chronic lymphedema of bilateral LE -LE elevation and lymphedema wraps if appropriate -negative DVT per venous duplex Reason for Visit Reason for Visit: back pain Hospital Course Hospital Course 68-year-old male who was readmitted to the hospital for hypoxic hypercapnic respite failure, he had significant hypercapnic respite distress he was put on BiPAP, he remained BiPAP every night, we were ivy to avoid intubation this time, he will be considered high risk for readmissions, intubations, respiratory and cardiac arrest considering his chronic hypercapnic hypoxic respiratory failure not been able to get BiPAP at home, on this visit we have tried very hard to get BiPAP approved through insurance and medical equipment company, we have to do pulse ox twice the challenge was to document 5 minutes of desaturation because patient will get anxious and asked for BiPAP and discontinue overnight pulse ox study, his baseline pCO2 range seems to between 60-69, he was diagnosed with venous stasis dermatitis, lymphedema, wraps were used during hospitalization, his neighbor who lives across the street helps him with change of dressing, during hospitalization he was diuresed aggressively, he does not want to go to prison which was recommended because he lives alone and does not take care of himself very well. During hospitalization he developed gastric and small bowel distention likely related to overuse of BiPAP no active emesis, his symptoms resolved conservatively, 08/26 we have finally gotten approval from insurance company for use of BiPAP, will discharge him today please note he is still considered high risk for readmission because he has lymphedema lower extremity venous stasis dermatitis, he is prone to development of cellulitis, compliance with medication is also questionable, he he does have capacity to make decision for himself he does not want to go to prison At this point we are discharging him home with diuretics, BiPAP (Please note it took us a lot of time and effort to get his approval of BiPAP) Physical Exam Narrative: Signs of heart failure improving GCS 15 Currently on 3 L nasal cannula which is his baseline Hemodynamic stable Extreme dry skin Lower extremity venous's dermatitis Lymphedema Urinary Catheter Management: Jeffery: Cath Placed During This Visit: yes, but has since been removed by the nurse Reason for Continuing Indwelling Catheter: Acute Urinary Retention or Obstruction Urinary Catheter Date of Insertion: 08/16/23 Urinary Catheter Time of Insertion: 22:45 Date Urinary Catheter Removed: 08/25/23 Time Urinary Catheter Discontinued: 11:05 Discharge Data Studies Completed and Pending Completed Studies During Hospitalization Category Date Time Status CT abdomen pelvis wo con 98055 Stat Cat Scan 08/19/23 20:[address] cervical spin wo con* [id number] Stat Cat Scan 08/16/23 13:[address] head wo con* [id number] Stat Cat Scan 08/16/23 13:[address] lumbar spine wo con* [id number] Stat Cat Scan 08/16/[address] thoracic spin wo con* [id number] Stat Cat Scan 08/16/23 Completed XR KUB portable [id number] Routine Exams 08/21/23 07:00 Completed XR chest 1V portable [id number] Stat Exams 08/16/23 13:10 Completed Pending at discharge Category Date Time Status Wound Culture and Gram Stain Stat Lab 08/23/23 00:00 Results Radiology Impressions Chest X-Ray 08/16/23 13:10 IMPRESSION: There is obscuration of the margins of the left hemidiaphragm concerning for infiltrate in the left base/retrocardiac region. Two line stable elevation the right hemidiaphragm. ADDENDUM: 08/16/23 2378 The last sentence in the impression section should read: Stable elevation of the right hemidiaphragm. Abdomen/Pelvis CT 08/19/23 20:38 IMPRESSION: 1. Moderate gaseous distension of the colon and distal small bowel suggestive of ileus. No transition zone to suggest obstruction. 2. Similar lymphadenopathy in the pelvis and abdomen. KUB X-Ray 08/21/23 07:00 IMPRESSION: Diffusely decreased gaseous distension of bowel since 08/19/2023. Laboratory Results WBC 10.10 10^3/uL (3.29-11.43) 08/24/23 05:10 RBC 4.83 10^6/uL (3.85-5.65) 08/24/23 05:10 Hgb 14.70 g/dL (11.27-16.99) 08/24/23 05:10 Hct 46.1 % (37-53) 08/24/23 05:10 MCV 95.4 fl (82-101) 08/24/23 05:10 MCH 30.4 pg (27-33) 08/24/23 05:10 MCHC 31.9 g/dL (30-55) 08/24/23 05:10 RDW 12.7 % (12.1-15.1) 08/24/23 05:10 Plt Count 266 10^3/cmm (157-399) 08/24/23 05:10 MPV 8.9 fL (7.4-10.4) 08/24/23 05:10 Neut % (Auto) 75.3 % 08/24/23 05:10 Lymph % (Auto) 11.3 % 08/24/23 05:10 [place] % (Auto) 10.4 % 08/24/23 05:10 Eos % (Auto) 1.9 % 08/24/23 05:10 Baso % (Auto) 0.5 % 08/24/23 05:10 Neut # (Auto) 7.61 10^3/uL (1.8-7.7) 08/24/23 05:10 Lymph # (Auto) 1.1 10^3/uL (0.8-4.8) 08/24/23 05:10 [place] # (Auto) 1.1 10^3/uL (0.2-0.9) H 08/24/23 05:10 Eos # (Auto) 0.2 10^3/uL (0.0-0.8) 08/24/23 05:10 Baso # (Auto) 0.1 10^3/uL (0.0-0.1) 08/24/23 05:10 Nucleated RBC % (auto) 0 % 08/24/23 05:10 Nucleated RBCs # 0.0 /100WBC 08/24/23 05:10 Specimen Type Venous 08/26/23 05:25 Sample Site Not specified 08/26/23 05:25 ABG pH 7.38 (7.35-7.45) 08/24/23 05:00 ABG pCO2 64.8 mmHg (35-45) H* 08/24/23 05:00 ABG pO2 77.3 mmHg (80.0-100.0) L 08/24/23 05:00 ABG PO2/FiO2 Ratio 0 08/24/23 05:00 ABG HCO3 38.6 mmol/L (22-26) H 08/24/23 05:00 ABG O2 Saturation 97.4 08/22/23 03:30 ABG Base Excess 10.4 mmol/L (-2.0-2.0) H 08/24/23 05:00 Toro Test N/a 08/26/23 05:25 VBG pH 7.34 (7.32-7.42) 08/26/23 05:25 VBG pCO2 69.9 mmHg (41-51) H* 08/26/23 05:25 VBG pO2 46.8 mmHg (25-40) H 08/26/23 05:25 VBG HCO3 37.9 mmol/L (24-28) H 08/26/23 05:25 VBG Base Excess 8.8 mmol/L (-3.0-3.0) H 08/26/23 05:25 VBG Hematocrit 49.9 % (42-52) 08/26/23 05:25 A-a O2 Gradient 4.4 mmHg (5-10) L 08/22/23 03:30 Hematocrit 47.9 % (42-52) 08/24/23 05:00 Hgb O2 Saturation 96.1 % (95-100) 08/22/23 03:30 Carboxyhemoglobin 1.0 %THgb (0.4-20.1) 08/22/23 03:30 Methemoglobin 0.3 % (0.4-1.5) L 08/22/23 03:30 Total Hemoglobin 15.1 g/dL (14-18) 08/22/23 03:30 Sodium 138.0 mmol/L (131-143) 08/22/23 03:30 Potassium 3.4 mmol/L (3.5-5.0) L 08/22/23 03:30 Glucose 105.0 mg/dL (70-115) 08/22/23 03:30 Ionized Calcium 1.2 mmol/L (1.1-1.4) 08/22/23 03:30 O2 Delivery Device Nc 08/26/23 05:25 O2 Liters/Min 2.0 % 08/26/23 05:25 FiO2 28.0 % 08/26/23 05:25 Tidal Volume 0.45 08/19/23 03:44 PEEP 10.0 cmH20 08/19/23 03:44 Fourchette Sewer ID Alewe 08/26/23 05:25 Sodium 138 mmol/L (136-145) 08/24/23 05:10 Potassium 3.6 mmol/L (3.5-5.1) 08/24/23 05:10 Chloride 93 mmol/L (98-107) L 08/24/23 05:10 Carbon Dioxide 36 mmol/L (22-29) H 08/24/23 05:10 Anion Gap 12.6 (5-19) 08/24/23 05:10 BUN 19 mg/dL (8-23) 08/24/23 05:10 Creatinine 0.5 mg/dL (0.7-1.2) L 08/24/23 05:10 GFR Calculation 166.4 mL/min (90-130) H 08/24/23 05:10 Glucose 93 mg/dL (65-115) 08/24/23 05:10 Calculated Osmolality 288 mOsm/kg (285-295) 08/24/23 05:10 Lactic Acid 1.2 mmol/L (0.5-2.2) 08/16/23 13:30 Calcium 9.3 mg/dL (8.5-10.5) 08/24/23 05:10 Phosphorus 3.3 mg/dL (2.5-4.5) 08/23/23 02:40 Magnesium 1.9 mg/dL (1.7-2.3) 08/17/23 04:06 Total Bilirubin 0.8 mg/dL (0.15-1.2) 08/16/23 13:30 AST 13 U/L (0-40) 08/16/23 13:30 ALT 10 U/L (0-41) 08/16/23 13:30 Alkaline Phosphatase 95 U/L (40-130) 08/16/23 13:30 C-Reactive Protein 41.8 mg/L (0.0-4.9) H 08/17/23 04:06 NT-Pro-B Natriuret Pep 347 pg/mL (0-125) H 08/21/23 14:44 Total Protein 7.6 g/dL (6.6-8.7) 08/16/23 13:30 Albumin 3.6 g/dL (3.5-5.2) 08/23/23 02:40 Globulin 3.6 g/dL (1.3-4.6) 08/16/23 13:30 Procalcitonin 0.09 ng/mL (0-0.5) 08/21/23 14:44 Urine Color Yellow (Yellow) 08/16/23 13:55 Urine Appearance Clear (CLEAR) 08/16/23 13:55 Urine pH 5 (5-7) 08/16/23 13:55 Ur Specific [place] 1.020 (1.005-1.030) 08/16/23 13:55 Urine Protein 1+ (Negative) H 08/16/23 13:55 Urine Glucose (UA) Norm (Normal) 08/16/23 13:55 Urine Ketones 2+ (Negative) H 08/16/23 13:55 Urine Blood Trace (Negative) H 08/16/23 13:55 Urine Nitrate Negative (Negative) 08/16/23 13:55 Urine Bilirubin 1+ (Negative) H 08/16/23 13:55 Urine Urobilinogen 1 mg/dL (Negative) H 08/16/23 13:55 Ur Leukocyte Esterase Negative (Negative) 08/16/23 13:55 Urine RBC 0-4 /hpf (0-2) H 08/16/23 13:55 Urine WBC 0-4 /hpf (0-5) H 08/16/23 13:55 Ur Squamous Epith Cells 0-4 /hpf (0-5) H 08/16/23 13:55 Amorphous Sediment Not Reportable 08/16/23 13:55 Urine Bacteria Trace /hpf (NONE) 08/16/23 13:55 Vancomycin Trough 13.1 ug/mL (10-15) 08/18/23 08:57 Urine Opiates Screen Positive ng/mL (Negative) H 08/16/23 21:10 Ur Barbiturates Screen Negative ng/mL (Negative) 08/16/23 21:10 Ur Phencyclidine Scrn Negative ng/mL (Negative) 08/16/23 21:10 Ur Amphetamines Screen Negative ng/mL (Negative) 08/16/23 21:10 U Benzodiazepines Scrn Positive ng/mL (Negative) H 08/16/23 21:10 Urine Cocaine Screen Negative ng/mL (Negative) 08/16/23 21:10 U Marijuana (THC) Screen Negative ng/mL (Negative) 08/16/23 21:10 Ethyl Alcohol < 10 mg/dL (0-10) 08/16/23 19:31 Vitals Last Vital Signs Temp 97.9 F 08/26/23 08:00 Pulse 80 08/26/23 08:04 Resp 18 08/26/23 08:00 BP 124/77 08/26/23 08:00 Pulse Ox 98 08/26/23 08:00 O2 Del Method Nasal Cannula 08/26/23 08:00 O2 Flow Rate 2 08/26/23 07:57 FiO2 30 08/26/23 02:10 Discharge Plan Discharge Patient Disposition: Xfer SNF Condition: Stable Prescriptions: New calamine-zinc oxide 8-8 % Lotion 1 applic topical BID Qty: 177 0RF Eliquis 5 mg Tablet 5 mg PO BID@0900,2100 Qty: 60 3RF albuterol sulfate 90 mcg/actuation HFA aerosol inhaler 2 inh inhalation Q8H PRN (Reason: shortness of breath or wheezing) Qty: 8.5 2RF fluticasone propion-salmeterol [Advair HFA] 45-21 mcg/actuation HFA aerosol inhaler 2 inh inhalation BID Qty: 12 5RF Rx Instructions: administer with spacer losartan 50 mg tablet 50 mg PO DAILY Qty: 60 0RF sennosides-docusate sodium [Stool Softener-Laxative] 8.6-50 mg Tablet 1 tab PO DAILY Qty: 30 0RF Spiriva Respimat 1.25 mcg/actuation mist 2 inh inhalation DAILY Qty: 4 3RF Continued albuterol sulfate 90 mcg/actuation HFA aerosol inhaler 2 puff INHALATION Q6H PRN (Reason: Shortness Of Breath) tiotropium bromide [Spiriva with HandiHaler] 18 mcg Capsule, W/Inhalation Device 1 cap INHALATION DAILY Rx Instructions: puncture 1 cap using device; one dose = 2 inhalations fluticasone furoate-vilanterol [Breo Ellipta] 200-25 mcg/dose blister with device 1 inh inhalation Q24H Qty: 60 0RF amlodipine 10 mg tablet 10 mg PO QAM furosemide 80 mg tablet 80 mg PO QPM spironolactone 50 mg tablet 50 mg PO QAM Discontinued aspirin 81 mg Tablet,Delayed Release (Dr/Ec) 81 mg PO QAM losartan-hydrochlorothiazide 50-12.5 mg tablet 1 tab PO DAILY Qty: 30 0RF prednisone 10 mg tablet See Rx Instructions .ROUTE .COMPLEX Rx Instructions: TAPER DIRECTED Discharge Orders: Discharge Order (Routine); Ordered 08/27/23 Ordered By: Uriel Pascual Other Ambulatory Orders: DME: BIPAP (Order) Location: None Selected Ordered By: Uriel Pascual Referrals: [facility] [Outside] - 08/29/23 9:00 pm (This is your appointment for your sleep study. ) Ed Branch [Primary Care Provider] - 09/01/23 1:20 pm Patient Instructions: Opioid Safety Activity Restrictions/Additional Instructions: APPOINTMENT FOR SLEEP STUDY ON AUGUST 28 AT 2100 Discharge Attestations Time Spent in Discharge Care*: greater than 30 min Status at Discharge: Cognitive status at discharge: cognitively intact , Behavioral status at discharge: cooperative , Quality Metrics Clinical Quality Measures [ No reported AMI, CVA or VTE this stay] Coding Level of Care Code Acute Code for Chg Fwd Diagnoses CHF exacerbation I50.9 Single subsegmental pulmonary embolism without acute cor pulmonale I26.93 Pulmonary embolism type: single subsegmental (without acute cor pulmonale) Obesity, morbid E66.01 Constipation K59.00 Ileus K56.7 Venous stasis ulcer I83.009; L97.909 Bilateral leg weakness R29.898 Altered mental status R41.82 Respiratory failure J96.02 Chronicity: acute Respiratory failure complication: hypercapnia Acute on chronic respiratory failure with hypoxia and hypercapnia J96.21; J96.22 COPD exacerbation J44.1 Obstructive sleep apnea G47.33 Lymphedema I89.0
--- NOTE | 2023-08-27 13:55 | PC.OT ---
Attempted OT treatment with pt declining services; will attempt at later time.
== END 2023-08-27 15:29 | disposition home or self-care (01) | DRG 189 ==
LOC: ER 17:56 → MEDSURG 18:12 → ICU 19:31 → MEDSURG 08-18 15:27
PROVIDERS: Internal Medicine; Student in an Organized Health Care Education/Training Program; Admitting Provider Internal Medicine; Emergency Provider Family Medicine; PCP Family Medicine; Visit Provider Internal Medicine
DX: J96.22 Acute and chronic respiratory failure with hypercapnia (principal); J69.0 Pneumonitis due to inhalation of food and vomit; I50.33 Acute on chronic diastolic (congestive) heart failure; K56.7 Ileus, unspecified; J44.1 Chronic obstructive pulmonary disease with (acute) exacerbation; L03.116 Cellulitis of left lower limb; L03.115 Cellulitis of right lower limb; L97.819 Non-pressure chronic ulcer of other part of right lower leg with unspecified severity; L97.829 Non-pressure chronic ulcer of other part of left lower leg with unspecified severity; J96.21 Acute and chronic respiratory failure with hypoxia; I11.0 Hypertensive heart disease with heart failure; Z72.0 Tobacco use; W18.39XA Other fall on same level, initial encounter; Z91.148 Patient's other noncompliance with medication regimen for other reason; F10.10 Alcohol abuse, uncomplicated; M54.2 Cervicalgia; E66.01 Morbid (severe) obesity due to excess calories; Z68.35 Body mass index [BMI] 35.0-35.9, adult; R53.81 Other malaise; Z86.718 Personal history of other venous thrombosis and embolism; Z86.711 Personal history of pulmonary embolism; R33.9 Retention of urine, unspecified; Z85.46 Personal history of malignant neoplasm of prostate; G47.33 Obstructive sleep apnea (adult) (pediatric); R41.82 Altered mental status, unspecified; I89.0 Lymphedema, not elsewhere classified; I87.8 Other specified disorders of veins; R14.0 Abdominal distension (gaseous); L89.159 Pressure ulcer of sacral region, unspecified stage
CPT/HCPCS: 36415; 36600; 51702; 70450; 71045; 72125; 72128; 72131; 74018; 74176; 80048; 80051; 80053; 80069; 80202; 80306; 80307; 81001; 82330; 82803; 82805; 83605; 83735; 83880; 84100; 84145; 85025; 86140; 87040; 87070; 87075; 87205; 93005; 94640; 94660; 96365; 96372; 96375; 96376; 97110; 97116; 97124; 97162; 97167; 97530; 97535; 99285; C9113; J1650; J1885; J1940; J2060; J2270; J2405; J2543; J2765; J2920; J3370; J3372; J3411; J3490; J7030

== ENCOUNTER 2023-09-21 13:38 | Inpatient (IN) | payer MEDICARE, SELFPAY ==
[2023-09-21] VITALS (9 sets, daily range): BP systolic 125–150; BP diastolic 76–83; PULSE 69–100; RESP 17–18; TEMP 36.4–36.5; O2SAT 91–98; BMI 33.2
--- NOTE | 2023-09-21 13:40 | XR_ITS ---
WS: [id number] Exam: XR chest 1V portable [id number] Date/Time of Exam: 09/21/2023 1:42 PM Reason For Exam: dyspnea/cough Comparison 08/16/2023. The lungs are clear and fully expanded. Mild cardiac enlargement unchanged. Chronic elevation of the RIGHT diaphragm. Bony structures are intact. The mediastinum is normal in contour. IMPRESSION: 1. No acute cardiopulmonary finding.
--- NOTE | 2023-09-21 13:41 | ECG_ITS ---
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 Measurements Intervals [place] Rate: 82 P: 55 OK: 167 QRS: 263 QRSD: 139 T: 61 QT: 395 QTc: 463 Interpretive Statements SINUS RHYTHM WITH FREQUENT SUPRAVENTRICULAR PREMATURE COMPLEXES RIGHT AXIS DEVIATION [QRS AXIS > 100] RIGHT BUNDLE BRANCH BLOCK [120+ ms QRS DURATION, UPRIGHT V1, 40+ ms S IN I/aVL/V4/V5/V6] Compared to ECG 08/16/2023 13:21:08 Myocardial infarct finding no longer present Electronically Signed On 09-22-2023 23:45:20 CDT by Yeimy Mike M.D. [email or web address][email or web address] [email or web address].[employer][id number]
--- NOTE | 2023-09-21 13:41 | ED_ITS ---
HPI - General Adult 2 General: Chief complaint: General Medical Stated complaint: Gen weakness Time Seen by Provider: 09/21/23 13:38 Source: patient Mode of arrival: EMS History of Present Illness: 68-year-old male presents emergency room with generalized weakness. He states he been weak unable to walk he has chronic venous stasis ulcers which has been cared for at wound care. He has not really been changing the bandages regularly. He has not had any fever sweats or chills. At the time of discharge at the last visit it was recommended that he be admitted to the custodial he refused. He states he is not able to manage at home now and that he is not getting the help he expected from family and friends and is not wanting to be readmitted to the hospital for admission to the custodial. No chest pain no abdominal pain. His previous hospitalization was reviewed Associated symptoms: Reports malaise and weakness; Deny chest pain, confusion, cough, dyspnea, nausea or rash Review of Systems 2 Const: Reports: malaise; Denies: fever(s) or chills Card: Denies: chest pain Resp: Denies: dyspnea GI: Denies: abdominal pain or nausea : Denies: dysuria, urinary frequency or urinary urgency Musc: Denies: neck pain or back pain Skin/Breast: Denies: rash Neuro: Denies: confusion PFSH ED 2 PFSH: Medical History Lymphedema -has chronic lymphedema of bilateral LE -LE elevation and lymphedema wraps if appropriate -negative DVT per venous duplex Venous stasis ulcer COPD exacerbation Acute on chronic respiratory failure with hypoxia and hypercapnia Obstructive sleep apnea Ileus Bilateral leg weakness Altered mental status CHF exacerbation Constipation Obesity, morbid Hypertension Respiratory failure Bladder mass Hyperkalemia Hypokalemia Hematoma of frontal scalp Contusion of face UTI (urinary tract infection) Sacral pressure ulcer Thrombocytopenia Alcohol abuse Prostate cancer Pulmonary embolism Surgical History Hx of colonoscopy May 2022, polyps found Status post colonoscopy H/O prostatectomy History of umbilical hernia repair Social History Smoking and tobacco/nicotine status: current some day tobacco/nicotine user Alcohol intake: former Marital status: Single Current occupational status: retired Physical Exam 2 Const: GENERAL APPEARANCE: cooperative and comfortable O RIENTATION/CONSCIOUSNESS: Yes awake, Yes oriented to person, Yes oriented to place and Yes oriented to time HENMT: COMMON NORMALS: normocephalic, atraumatic and hearing grossly normal bilaterally HEAD & SCALP: normocephalic and atraumatic Resp: COMMON NORMALS: normal respiratory effort, No retractions, No use of accessory muscles and clear to auscultation bilaterally AUSCULTATION: clear to auscultation bilaterally Cardio: COMMON NORMALS: regular rate, regular rhythm and No murmurs present (Cardio) RATE: regular rate RHYTHM: regular rhythm GI: COMMON NORMALS: Soft to palpation and No hepatosplenomegaly present A USCULTATION: Yes normoactive bowel sounds PALPATION: Yes Soft to palpation, No Tenderness to palpation present (GI), No Guarding due to palpation present (GI) and Yes No hepatosplenomegaly present Extremity: OTHER: Mucus she has close multiple oral extremity venous stasis ulcers however there is no signs of active infection no purulent drainage pink granulation tissue present no palpable abscess. Neuro: SENSORIUM/ORIENTATION: Yes oriented to person, Yes oriented to place and Yes oriented to time Skin: COMMON NORMALS: no rashes or lesions noted GENERAL SKIN EXAM: no rashes or lesions noted Course 2 Vital Signs: Vital signs: Vital Signs Temperature 97.6 F 09/27/23 10:24 Pulse Rate 89 09/27/23 10:24 Respiratory Rate 18 09/27/23 10:24 Blood Pressure 121/81 09/27/23 10:24 Pulse Oximetry 95 09/27/23 10:24 Oxygen Delivery Me thod Nasal Cannula 09/27/23 10:24 Oxygen Flow Rate 2 09/27/23 08:14 Fraction of Inspir ed Oxygen 30 09/25/23 03:44 MDM - General Adult Medical Decision Making Labs and imaging reviewed EKG does not show any acute changes previous hospitalization reviewed. Patient is able to ambulate discussed with hospitalist will admit patient degrees to plan of discharge to custodial. Lab Data 09/27/23 02:43 09/27/23 02:43 Radiology Impressions Abdomen/Pelvis CT 09/22/23 18:12 IMPRESSION: 1. No bowel obstruction or inflammatory process associated with the bowel. 2. No free air or significant free fluid in the abdomen or pelvis. 3. No evidence of appendicitis. 4. There is a hypodense lesion measuring up 5.6 cm in 54 Hounsfield units along the posterior cortex of the right kidney which does not meet imaging criteria for a simple cyst and a three-phase renal CT or renal may be of benefit to more fully characterize this finding. Additional hypodense lesion in the right kidney measuring up to 1.9 cm can be assessed at the same time. 5. Multiple prominent bilateral groin lymph nodes and retroperitoneal lymph nodes which are indeterminate but may be reactive in nature. Laboratory Results WBC 8.18 10^3/uL (3.29-11.43) 09/23/23 00:52 RBC 4.97 10^6/uL (3.85-5.65) 09/23/23 00:52 Hgb 15.20 g/dL (11.27-16.99) 09/23/23 00:52 Hct 50.1 % (37-53) 09/23/23 00:52 MCV 100.8 fl (82-101) 09/23/23 00:52 MCH 30.6 pg (27-33) 09/23/23 00:52 MCHC 30.3 g/dL (30-55) 09/23/23 00:52 RDW 13.3 % (12.1-15.1) 09/23/23 00:52 Plt Count 204 10^3/cmm (157-399) 09/23/23 00:52 MPV 8.6 fL (7.4-10.4) 09/23/23 00:52 Neut % (Auto) 78.4 % 09/23/23 00:52 Lymph % (Auto) 10.8 % 09/23/23 00:52 Douglas % (Auto) 9.2 % 09/23/23 00:52 Eos % (Auto) 0.6 % 09/23/23 00:52 Baso % (Auto) 0.5 % 09/23/23 00:52 Neut # (Auto) 6.42 10^3/uL (1.8-7.7) 09/23/23 00:52 Lymph # (Auto) 0.9 10^3/uL (0.8-4.8) 09/23/23 00:52 Douglas # (Auto) 0.8 10^3/uL (0.2-0.9) 09/23/23 00:52 Eos # (Auto) 0.1 10^3/uL (0.0-0.8) 09/23/23 00:52 Baso # (Auto) 0.0 10^3/uL (0.0-0.1) 09/23/23 00:52 Nucleated RBC % (auto) 0 % 09/23/23 00:52 Nucleated RBCs # 0.0 /100WBC 09/23/23 00:52 Specimen Type Arterial 09/23/23 13:59 Sample Site Radial, right 09/23/23 13:59 ABG pH 7.16 (7.35-7.45) L* 09/23/23 13:59 ABG pCO2 108.0 mmHg (35-45) H* 09/23/23 13:59 ABG pO2 66.9 mmHg (80.0-100.0) L 09/23/23 13:59 ABG PO2/FiO2 Ratio 0 09/22/23 18:35 ABG HCO3 38.5 mmol/L (22-26) H 09/23/23 13:59 ABG O2 Saturation 90.8 09/23/23 13:59 ABG Base Excess 5.1 mmol/L (-2.0-2.0) H 09/23/23 13:59 Toro Test Pos 09/23/23 13:59 A-a O2 Gradient Not Reportable 09/23/23 13:59 Hematocrit 47.9 % (42-52) 09/23/23 13:59 Hgb O2 Saturation 89.4 % (95-100) L 09/23/23 13:59 Carboxyhemoglobin 1.4 %THgb (0.4-20.1) 09/23/23 13:59 Methemoglobin 0.2 % (0.4-1.5) L 09/23/23 13:59 Total Hemoglobin 15.6 g/dL (14-18) 09/23/23 13:59 Sodium 140.0 mmol/L (131-143) 09/23/23 13:59 Potassium 3.8 mmol/L (3.5-5.0) 09/23/23 13:59 Glucose 102.0 mg/dL (70-115) 09/23/23 13:59 Ionized Calcium 1.3 mmol/L (1.1-1.4) 09/23/23 13:59 O2 Delivery Device Nc 09/23/23 13:59 O2 Liters/Min 4.0 % 09/23/23 13:59 FiO2 2.5 % 09/22/23 18:35 PEEP 6.0 cmH20 09/22/23 05:31 Esol Teacher Assistant ID glc 09/23/23 13:59 Sodium 139 mmol/L (136-145) 09/23/23 00:52 Potassium 4.3 mmol/L (3.5-5.1) 09/23/23 00:52 Chloride 96 mmol/L (98-107) L 09/23/23 00:52 Carbon Dioxide 34 mmol/L (22-29) H 09/23/23 00:52 Anion Gap 13.3 (5-19) 09/23/23 00:52 BUN 19 mg/dL (8-23) 09/23/23 00:52 Creatinine 0.6 mg/dL (0.7-1.2) L 09/23/23 00:52 GFR Calculation 134.8 mL/min (90-130) H 09/23/23 00:52 Glucose 111 mg/dL (65-115) 09/23/23 00:52 Calculated Osmolality 291 mOsm/kg (285-295) 09/23/23 00:52 Lactic Acid 1.0 mmol/L (0.5-2.2) 09/21/23 13:54 Lactate 1.0 mmol/L (0.5-2.2) 09/22/23 20:13 Calcium 9.5 mg/dL (8.5-10.5) 09/23/23 00:52 Magnesium 1.9 mg/dL (1.7-2.3) 09/23/23 00:52 Total Bilirubin 0.7 mg/dL (0.15-1.2) 09/22/23 05:33 AST 10 U/L (0-40) 09/22/23 05:33 ALT 7 U/L (0-41) 09/22/23 05:33 Alkaline Phosphatase 65 U/L (40-130) 09/22/23 05:33 Creatine Kinase 33 U/L (39-308) L 09/21/23 13:54 Troponin T Baseline 56 ng/L (0-15) H 09/22/23 20:13 Troponin T 120 Minute 54.20 ng/L (0-15) H 09/22/23 22:09 Delta Troponin T -1.80 ABS# (0-10) L 09/22/23 22:09 Troponin T Hi Sens 6Hr 49.97 ng/L (0-15) H 09/23/23 00:52 Troponin T Hi Sens 6Hr Delta -6.03 ng/L (0-12) L 09/23/23 00:52 NT-Pro-B Natriuret Pep 201 pg/mL (0-125) H 09/21/23 13:54 Total Protein 6.6 g/dL (6.6-8.7) 09/22/23 05:33 Albumin 3.7 g/dL (3.5-5.2) 09/22/23 05:33 Globulin 2.9 g/dL (1.3-4.6) 09/22/23 05:33 Procalcitonin 0.08 ng/mL (0-0.5) 09/21/23 13:54 TSH 1.51 uIU/mL (0.27-4.20) 09/21/23 13:54 Urine Color Yellow (Yellow) 09/22/23 02:55 Urine Appearance Sl hazy (CLEAR) A 09/22/23 02:55 Urine pH 6 (5-7) 09/22/23 02:[address] [place] 1.025 (1.005-1.030) 09/22/23 02:55 Urine Protein 1+ (Negative) H 09/22/23 02:55 Urine Glucose (UA) Norm (Normal) 09/22/23 02:55 Urine Ketones 1+ (Negative) H 09/22/23 02:55 Urine Blood Neg (Negative) 09/22/23 02:55 Urine Nitrate Negative (Negative) 09/22/23 02:55 Urine Bilirubin Neg (Negative) 09/22/23 02:55 Urine Urobilinogen 4 mg/dL (Negative) H 09/22/23 02:55 Ur Leukocyte Esterase Negative (Negative) 09/22/23 02:55 Urine RBC None /hpf (0-2) 09/22/23 02:55 Urine WBC 0-4 /hpf (0-5) H 09/22/23 02:55 Ur Squamous Epith Cells 0-4 /hpf (0-5) H 09/22/23 02:55 Calcium Oxalate Crystal 15-25 /hpf H 09/22/23 02:55 Amorphous Sediment Not Reportable 09/22/23 02:55 Urine Bacteria None /hpf (NONE) 09/22/23 02:55 All radiology interpretation(s) finalized by discharge Discharge Plan Discharge Patient Disposition: Admitted As Inpatient Admit Provider: Samantha Liu Clinical Impression: Weakness, Lymphedema, Obstructive sleep apnea, Venous stasis ulcer, COPD exacerbation Condition: Stable Discharge Diet: Cardiac Discharge Activity: Increase activity as tolerated Coding Level of Care Code ED Supervisor Soakers for Sharmin Stewart
[2023-09-21 14:03] LABS: Basophils # 0.1 10^3/uL (0.0-0.1); Basophils % 0.7 %; Eosinophils # 0.1 10^3/uL (0.0-0.8); Hematocrit 50.5 % (37-53); Lymphocytes # 1.3 10^3/uL (0.8-4.8); Mean Corpuscular HGB Conc 30.7 g/dL (30-55); Mean Corpuscular Hemoglobin 30.3 pg (27-33); Mean Corpuscular Volume 98.6 fl (82-101); Mean Platelet Volume 8.4 fL (7.4-10.4); Monocytes # 0.7 10^3/uL (0.2-0.9); Monocytes % 9.3 %; Neutrophils # 4.99 10^3/uL (1.8-7.7); Neutrophils % 69.6 %; Nucleated Red Blood Cells % 0 %; Platelet Count 207 10^3/cmm (157-399); Red Blood Count 5.12 10^6/uL (3.85-5.65); Red Cell Distribution Width 13.6 % (12.1-15.1); White Blood Count 7.17 10^3/uL (3.29-11.43)
[2023-09-21 14:24] LABS: Troponin(5th) Baseline 60 ng/L (0-15)
[2023-09-21 14:32] LABS: Alanine Aminotransferase 8 U/L (0-41); Albumin Level 4.2 g/dL (3.5-5.2); Alkaline Phosphatase 71 U/L (40-130); Anion Gap 10.3 (5-19); Aspartate Amino Transferase 11 U/L (0-40); Blood Urea Nitrogen 16 mg/dL (8-23); Calcium 9.5 mg/dL (8.5-10.5); Carbon Dioxide 40 mmol/L (22-29); Chloride 96 mmol/L (98-107); Creatine Phosphokinase 33 U/L (39-308); Creatinine Clr Calc Pharmacy 106.9444; Globulin 2.5 g/dL (1.3-4.6); Glomerular Filtration Rate 134.8 mL/min (90-130); Glucose 89 mg/dL (65-115); Osmolality Calculated 295 mOsm/kg (285-295); Potassium 4.3 mmol/L (3.5-5.1); Sodium 142 mmol/L (136-145); Thyroid Stimulating Hormone 1.51 uIU/mL (0.27-4.20); Total Bilirubin 0.7 mg/dL (0.15-1.2); Total Protein 6.7 g/dL (6.6-8.7)
[2023-09-21] MEDS: HYDROcodone-acetaminophen 5-325 mg Tablet 1 TAB PO (14:51)
[2023-09-21] MEDS: aspirin 81 mg Chew Tablet 324 MG PO (14:51)
[2023-09-21 15:03] LABS: ABG PCO2 72.4 mmHg (35-45); ABG PH Result 7.34 (7.35-7.45); Alveolar-Arterial Oxygen Gradi 4.9 mmHg (5-10); Arterial Blood Gas Hematocrit 46.5 % (42-52); Blood Gas Operator Identificat AMH; Blood Gas Sample Site Brachial, left; Blood Gas Sample Type Arterial; Carboxyhemoglobin 3.9 %THgb (0.4-20.1); HCO3 ABG 39.2 mmol/L (22-26); HGB O2 Sat 91.5 % (95-100); Ionized Calcium Level - ABG 1.2 mmol/L (1.1-1.4); Methemoglobin 0.5 % (0.4-1.5); Oxygen Device NC; Oxygen Saturation ABG 95.7; PO2 ABG 73.5 mmHg (80.0-100.0); PO2 FiO2 Ratio Arterial Blood 0; Potassium Level - ABG 3.7 mmol/L (3.5-5.0); Total Hemoglobin 15.2 g/dL (14-18)
[2023-09-21 15:14] LABS: NT Pro B Type Natriuretic Pept 201 pg/mL (0-125); Procalcitonin 0.08 ng/mL (0-0.5)
--- NOTE | 2023-09-21 15:41 | ECG_ITS ---
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 Measurements Intervals [place] Rate: 86 P: 58 HI: 164 QRS: 258 QRSD: 138 T: 75 QT: 412 QTc: 495 Interpretive Statements SINUS RHYTHM WITH OCCASIONAL VENTRICULAR PREMATURE COMPLEXES WITH OCCASIONAL SUPRAVENTRICULAR PREMATURE COMPLEXES RIGHT AXIS DEVIATION [QRS AXIS > 100] RIGHT BUNDLE BRANCH BLOCK [120+ ms QRS DURATION, UPRIGHT V1, 40+ ms S IN I/aVL/V4/V5/V6] MODERATE T-WAVE ABNORMALITY, CONSIDER LATERAL ISCHEMIA [-0.1+ mV T-WAVE IN I/aVL/V5/V6] Compared to ECG 09/21/2023 13:49:40 Ventricular premature complex(es) now present T-wave abnormality now present Possible ischemia now present Electronically Signed On 09-23-2023 0:01:07 CDT by Yeimy Mike M.D. [id number]
[2023-09-21] MEDS: ipratropium-albuterol 3 mL Neb INHALATION (16:02)
--- NOTE | 2023-09-21 16:27 | PC.PHAR ---
Addendum entered by Aishwarya Torrse 09/21/23 16:28: WAS NOT COMFORTABLE REMOVING ALL THE MEDICATIONS AND INHALERS FROM HIS CHART. Original Note: PT STATES HE IS ONLY TAKING AMLODIPINE 10 MG AND FUROSEMIDE 80MG CURRENTLY. DOES NOT WANT ANY MORE PILLS TO TAKE. PT WANTS DR PAULINO TO COME OVER AND SEE HIM. 09/21/23
[2023-09-21 16:54] LABS: Troponin 5 2HR 56.45 ng/L (0-15)
[2023-09-21 16:56] LABS: Troponin 5 2HR Delta -3.55 ABS# (0-10)
--- NOTE | 2023-09-21 19:10 | PM.HP ---
Providers/Chief Complaint Admitting Physician: Samantha Liu MD Primary Care Provider: Ed Branch Chief Complaint: Gen weakness History of Present Illness Satish Jones is a 68 year old male who spent significant amount of time in the hospital because we got his BiPAP approved which took a lot of attempts, he refused skilled nursing placement, he was discharged home with significant readmission risk he does have lymphedema lower extremity venous stasis dermatitis cellulitis, At baseline uses 4 to 5 L of oxygen during the daytime and uses BiPAP at night presented with chief complaint of lower extremity weakness. Patient has presented to the hospital for chief complaint of lower extremity swelling, his compliance with medication and BiPAP is questionable, he is not even sure about his meds patient's, he was drowsy requested Jeffery catheter and BiPAP ABG showed respiratory acidosis. Patient was wearing adult diaper completely soiled with urine foul-smelling lower extremities. Extreme dryness. Review of Systems Const: Denies: fever(s) Eyes: Denies: change in vision ENMT: Denies: throat pain Card: Reports: swelling of feet/ankles; Denies: chest pain Resp: Reports: dyspnea GI: Denies: abdominal pain : Denies: flank pain Musc: Reports: extremity pain; Denies: neck pain Skin/Breast: Reports: rash Medications/Allergies Home Medications Medication Instructions Recorded Confirmed Last Taken Type amlodipine 10 mg tablet 10 mg PO QAM 04/15/23 09/21/23 09/21/23 History fluticasone furoate 200 1 inh inhalation Q24H #60 ea 07/09/23 09/21/23 Unknown Rx mcg-vilanterol 25 mcg/dose inhalation powder (Breo Ellipta) albuterol sulfate 90 mcg/actuation 2 inh inhalation Q8H PRN shortness 08/26/23 09/21/23 Unknown Rx aerosol inhaler of breath or wheezing #8.5 grams apixaban 5 mg tablet (Eliquis) 5 mg PO BID@0900,2100 #60 tabs 08/26/23 09/21/23 Unknown Rx calamine 8 %-zinc oxide 8 % lotion 1 applic topical BID #177 mL 08/26/23 09/21/23 Unknown Rx sennosides 8.6 mg-docusate sodium 1 tab PO DAILY #30 tabs 08/26/23 09/21/23 Unknown Rx 50 mg tablet (Stool Softener-Laxative) tiotropium bromide 1.25 2 inh inhalation DAILY #4 grams 08/26/23 09/21/23 Unknown Rx mcg/actuation mist for inhalation (Spiriva Respimat) bumetanide 1 mg tablet 1 mg PO DAILY #90 tabs 08/27/23 09/21/23 Unknown Rx potassium chloride 10 mEq 10 meq PO DAILY Only take with 08/27/23 09/21/23 Unknown Rx tablet,extended release Bumex #90 tabs furosemide 80 mg tablet 80 mg PO DAILY 09/21/23 09/21/23 09/21/23 History Allergies Allergy/AdvReac Type Severity Reaction Status Date / Time No Known Allergies Allergy Verified 08/11/23 13:14 PFSH Acute PFSH: Medical History (Updated 09/22/23 @ 05:13 by Uriel Pascual MD) Venous stasis ulcer COPD exacerbation Acute on chronic respiratory failure with hypoxia and hypercapnia Obstructive sleep apnea Ileus Bilateral leg weakness Altered mental status CHF exacerbation Constipation Lymphedema -has chronic lymphedema of bilateral LE -LE elevation and lymphedema wraps if appropriate -negative DVT per venous duplex Obesity, morbid Hypertension Respiratory failure Bladder mass Hyperkalemia Hypokalemia Hematoma of frontal scalp Contusion of face UTI (urinary tract infection) Sacral pressure ulcer Thrombocytopenia Alcohol abuse Prostate cancer Pulmonary embolism Surgical History Hx of colonoscopy May 2022, polyps found Status post colonoscopy H/O prostatectomy History of umbilical hernia repair Social History Smoking and tobacco/nicotine status: current some day tobacco/nicotine user Alcohol intake: former Marital status: Single Current occupational status: retired Vitals/I&O/Wt Last Vital Signs Temp 97.8 F 09/22/23 03:58 Pulse 79 09/22/23 05:02 Resp 19 H 09/22/23 03:58 BP 141/77 09/22/23 03:58 Pulse Ox 98 09/22/23 04:45 O2 Del Method BiPAP 09/22/23 03:58 O2 Flow Rate 2 09/21/23 19:05 FiO2 35 09/22/23 04:45 03/26/24 03/26/24 03/27/24 14:59 22:59 06:59 Intake Total 480 / 480 680 / 1160 Output Total 250 / 250 Balance 480 / 480 430 / 910 Weight last 48 hrs Weight 102.058 kg Weight 102.058 kg Weight 102.058 kg Physical Exam Narrative: Morbidly obese male Currently on BiPAP Hemodynamically stable Signs of fluid overload , lymphedema Venous stasis dermatitis with venous stasis ulcer Nonfocal neuroexam however drowsy GCS 15 S1, S2 variable Urinary Catheter Management: Jeffery: Cath Placed During This Visit: yes Urinary Catheter Date of Insertion: 09/22/23 Urinary Catheter Time of Insertion: 02:46 Data 09/21/23 13:54 09/21/23 13:54 Micro: Microbiology 09/21/23 15:02 Blood Culture - Preliminary Blood SPECIMEN COLLECTED 09/21/23 14:52 Blood Culture - Preliminary Blood SPECIMEN COLLECTED A&P Assessment and plan (1) COPD exacerbation: (2) Venous stasis ulcer: (3) Acute on chronic respiratory failure with hypoxia and hypercapnia: (4) Obstructive sleep apnea: Plan ACUTE COPD exacerbation Uses BiPAP at night and 3 L of oxygen in the daytime which is his baseline Mild respiratory acidosis noted on admission, he was put on BiPAP, repeat ABG in the morning Compliance is questionable CHF: It is very difficult to assess his volume status considering his high BMI Lymphedema I would continue diuresis for now History of PE continue Eliquis Venous stasis dermatitis Dressing change on daily basis Patient still does not want to go to any skilled nursing at this time He has capacity to make decision for himself however his brother and [id number] are very concerned about his home and his noncompliance UTI: Will add ceftriaxone Cardiac consistent carb diet Disposition: Would recommend skilled nursing placement Will rediscuss in the morning once he is more awake and alert His brother and syrkel-ul-aon in agreement for skilled nursing placement Attestations Medical Necessity Statement*: Anticipating discharge within 48 hours Diagnoses COPD exacerbation J44.1 Venous stasis ulcer I83.009; L97.909 Acute on chronic respiratory failure with hypoxia and hypercapnia J96.21; J96.22 Obstructive sleep apnea G47.33
[2023-09-21 20:45] LABS: Troponin 5 6HR 60.06 ng/L (0-15); Troponin 5 6HR Delta 0.06 ng/L (0-12)
[2023-09-21] MEDS: apixaban 5 mg Tablet PO (21:19)
[2023-09-22] VITALS (18 sets, daily range): BP systolic 113–159; BP diastolic 68–79; PULSE 61–101; RESP 16–21; TEMP 36.5–36.8; O2SAT 93–99
[2023-09-22] MEDS: ipratropium-albuterol 3 mL Neb INHALATION ×4 (01:44→19:46)
[2023-09-22 04:26] LABS: Add Urine Culture? No; Add Urine Microscopic? YES; Bilirubin Urine Neg (Negative); Blood Urine Neg (Negative); Calcium Oxalate Crystals Urine 15-25 /hpf; Glucose Urine UA Norm (Normal); Ketones Urine 1+ (Negative); Leukocyte Esterase Urine Negative (Negative); Nitrate Urine Negative (Negative); Protein Urine 1+ (Negative); Specific Gravity, Urine 1.025 (1.005-1.030); Squamous Epithelial Cell Urine 0-4 /hpf (0-5); Urine Appearance SL Hazy (CLEAR); Urine Color Yellow (Yellow); Urobilinogen Urine 4 mg/dL (Negative); WBC Urine 0-4 /hpf (0-5); pH Urine 6 (5-7)
[2023-09-22] MEDS: cefTRIAXone 1,000 MG in sodium chloride 0.9% (plus) 50 ML 100 MG IV (05:41)
[2023-09-22 05:43] LABS: ABG PH Result 7.34 (7.35-7.45); Arterial Blood Gas Hematocrit 46.7 % (42-52); Base Excess ABG 10.9 mmol/L (-2.0-2.0); Blood Gas Allen Test Pos; Blood Gas Sample Type Arterial; HCO3 ABG 40.5 mmol/L (22-26)
[2023-09-22] MEDS: amlodipine 10 mg Tablet PO (05:43)
[2023-09-22 05:44] LABS: Blood Gas Sample Site Radial, right; Oxygen Device BIPAP; PO2 FiO2 Ratio Arterial Blood 0
[2023-09-22 05:48] LABS: Basophils # 0.1 10^3/uL (0.0-0.1); Basophils % 0.8 %; Eosinophils # 0.1 10^3/uL (0.0-0.8); Eosinophils % 1.9 %; Hematocrit 47.4 % (37-53); Lymphocytes # 1.5 10^3/uL (0.8-4.8); Lymphocytes % 19.8 %; Mean Corpuscular Hemoglobin 30.5 pg (27-33); Mean Corpuscular Volume 98.3 fl (82-101); Mean Platelet Volume 8.4 fL (7.4-10.4); Monocytes # 0.7 10^3/uL (0.2-0.9); Neutrophils # 5.09 10^3/uL (1.8-7.7); Neutrophils % 68.1 %; Nucleated Red Blood Cells % 0 %; Platelet Count 208 10^3/cmm (157-399); Red Blood Count 4.82 10^6/uL (3.85-5.65); Red Cell Distribution Width 13.4 % (12.1-15.1); White Blood Count 7.47 10^3/uL (3.29-11.43)
[2023-09-22 06:10] LABS: Alanine Aminotransferase 7 U/L (0-41); Albumin Level 3.7 g/dL (3.5-5.2); Alkaline Phosphatase 65 U/L (40-130); Aspartate Amino Transferase 10 U/L (0-40); Blood Urea Nitrogen 19 mg/dL (8-23); Calcium 9.6 mg/dL (8.5-10.5); Carbon Dioxide 37 mmol/L (22-29); Chloride 99 mmol/L (98-107); Creatinine Clr Calc Pharmacy 106.9444; Globulin 2.9 g/dL (1.3-4.6); Glomerular Filtration Rate 166.4 mL/min (90-130); Glucose 98 mg/dL (65-115); Osmolality Calculated 296 mOsm/kg (285-295); Sodium 142 mmol/L (136-145); Total Bilirubin 0.7 mg/dL (0.15-1.2); Total Protein 6.6 g/dL (6.6-8.7)
[2023-09-22] MEDS: bumetanide 1 mg Tablet PO (08:25)
[2023-09-22] MEDS: potassium chloride ER 10 mEq Tablet PO (08:25)
[2023-09-22] MEDS: apixaban 5 mg Tablet PO (08:26)
[2023-09-22 09:16] LABS: ABG PH Result 7.39 (7.35-7.45); Arterial Blood Gas Hematocrit 47.8 % (42-52); Blood Gas Allen Test Pos; Blood Gas Operator Identificat MONRO; Blood Gas Sample Site Radial, left; Blood Gas Sample Type Arterial; HCO3 ABG 39.3 mmol/L (22-26); Oxygen Device NC; PO2 FiO2 Ratio Arterial Blood 0
[2023-09-22] MEDS: budesonide 0.5 mg/2 mL Neb INHALATION ×2 (09:21→19:46)
[2023-09-22 09:23] LABS: ABG PCO2 65.4 mmHg (35-45)
[2023-09-22] MEDS: ondansetron 2 mg/ML SDV 2 mL 4 MG IVP ×2 (09:24→13:15)
[2023-09-22 10:40] LABS: Bacillus cereus group Not Detected (NOT DETECT); Bacillus subtillis group Not Detected (NOT DETECT); Corynebacterium Not Detected (NOT DETECT); Cutibacterium acnes (P.acnes) Not Detected (NOT DETECT); Enterococcus Not Detected (NOT DETECT); Enterococcus faecalis Not Detected (NOT DETECT); Enterococcus faecium Not Detected (NOT DETECT); Lactobacillus species Not Detected (NOT DETECT); Listeria Not Detected (NOT DETECT); Listeria monocytogenes Not Detected (NOT DETECT); Micrococcus Not Detected (NOT DETECT); Pan Candida Not Detected (NOT DETECT); Pan Gram-Negative Not Detected (NOT DETECT); Staphylococcus epidermidis Detected (NOT DETECT); Staphylococcus lugdunensis Not Detected (NOT DETECT); Staphylococcus species Detected (NOT DETECT); Streptococcus agalactiae Not Detected (NOT DETECT); Streptococcus anginosus group Not Detected (NOT DETECT); Streptococcus pneumoniae Not Detected (NOT DETECT); Streptococcus pyogenes Not Detected (NOT DETECT); Streptococcus species Not Detected (NOT DETECT); mecA Detected (NOT DETECT); mecC Not Detected (NOT DETECT)
--- NOTE | 2023-09-22 12:48 | P.PN_ITS ---
Subjective 2 Subjective: 1 out of 4 blood culture bottles positiv e for staph epi. Discussed with patient this morning regarding assisted placement. He states he is not ready to give up his check at all. He says not at this time. I noted, after your house and they take all your money. He says this is unreasonable at this point in life. He says he has people that take care of him at home. He does not want to go to a assisted. He may be amenable to going for short-term for rehab as he feels weaker than before however if we will have to be progressive rehab only. Says he is on 3 L nasal cannula at home. He says he wears BiPAP sometimes at night however not every night. ? Medication manrique mainly he is compliant but does miss doses here and there as per patient. No family present at bedside at this time Alert oriented x 4. Vitals/I&O/Wt Last Vital Signs Temp 97.7 F 09/22/23 11:54 Pulse 88 09/22/23 11:54 Resp 18 09/22/23 11:54 BP 125/79 09/22/23 11:54 Pulse Ox 93 09/22/23 11:54 O2 Del Method Nasal Cannula 09/22/23 11:54 O2 Flow Rate 2 09/22/23 09:21 FiO2 30 09/22/23 09:44 09/21/23 09/22/23 09/22/23 22:59 06:59 14:59 Intake Total 480 / 480 730 / 1210 120 / 120 Output Total 250 / 250 Balance 480 / 480 480 / 960 120 / 120 Weight last 48 hrs Weight 102.058 kg Weight 102.058 kg Weight 102.058 kg Physical Exam 2 Narrative: Morbidly obese male Currently on 2 L nasal cannula. Hemodynamically stable Signs of fluid overload Chronic lymphedema. Venous stasis dermatitis with venous stasis ulcer Nonfocal neuroexam however drowsy GCS 15 S1, S2 variable Urinary Catheter Management: Jeffery: Cath Placed During This Visit: yes Reason for Continuing Indwelling Catheter: Other Urinary Catheter Date of Insertion: 09/22/23 Urinary Catheter Time of Insertion: 02:46 Data 09/22/23 05:33 09/22/23 05:33 Micro: Microbiology 09/21/23 15:02 Blood Culture - Preliminary Blood Staphylococcus epidermidis 09/21/23 14:52 Blood Culture - Preliminary Blood SPECIMEN COLLECTED A&P Assessment and plan (1) COPD exacerbation: (2) Venous stasis ulcer: (3) Acute on chronic respiratory failure with hypoxia and hypercapnia: (4) Obstructive sleep apnea: Plan ACUTE COPD exacerbation Uses BiPAP at night and 3 L of oxygen in the daytime which is his baseline Mild respiratory acidosis noted on admission, he was put on BiPAP, repeat ABG in the morning Patient noncompliant to BiPAP and other medications at times. He stated he takes them sometimes CHF: It is very difficult to assess his volume status considering his high BMI Lymphedema I will continue with diuresis for now. History of PE continue Eliquis Venous stasis dermatitis Dressing change on daily basis Patient still does not want to go to any assisted at this time He has capacity to make decision for himself however his brother and [id number] are very concerned about his home and his noncompliance UTI: Continue ceftriaxone at this time. 1 out of 4 bottles positive for staph epi. This is most likely a contaminant at this time. Will continue on ceftriaxone. I will repeat blood cultures today. I do not believe this is true bacteremia. Weakness Patient has been feeling weaker than before. This may be a combination of him being noncompliant to his BiPAP and underlying obstructive sleep apnea causing daytime somnolence and lethargy. Cardiac consistent carb diet Disposition: Would recommend assisted placement With patient's compliance to do his BiPAP and medications and chronic bilateral lymphedema it would be best if he go to a assisted however patient is not interested in that at this time unless it is for the purposes of rehab. He has capacity to make his decisions. I will discuss with family regarding Of action. food preparation worker alerted and working on possible short-term placement for rehab. Attestations 2 Medical Necessity Statement*: Continue to work on placement Diagnoses COPD exacerbation J44.1 Venous stasis ulcer I83.009; L97.909 Acute on chronic respiratory failure with hypoxia and hypercapnia J96.21; J96.22 Obstructive sleep apnea G47.33
[2023-09-22] MEDS: ketorolac 30 mg/mL INJ 15 MG IVP (13:15)
[2023-09-22] MEDS: metoclopramide 5 mg/mL SDV 2 mL 10 MG IVP (14:42)
--- NOTE | 2023-09-22 17:58 | PC.NURSE ---
pt has progressively declined throughout this shift. Pt states his arms feel heavy and he can hardly lift them, color seems more beltrán, significant blood in the urine. Pt continuallly complains of abdominal pain and says I ain't doing good am I . Charge nurse and Dr. Liu notified.
--- NOTE | 2023-09-22 18:12 | CTR_ITS ---
PROCEDURE INFORMATION: Exam: CT Abdomen And Pelvis With Contrast Exam date and time: 09/22/2023 9:31 PM Age: 68 years old Clinical indication: Abdominal pain; Acute; Prior surgery; Surgery date: 6+ months; Surgery type: Hernia, prostate TECHNIQUE: Imaging protocol: Computed tomography of the abdomen and pelvis with contrast. Radiation optimization: All CT scans at this facility use at least one of these dose optimization techniques: automated exposure control; mA and/or kV adjustment per patient size (includes targeted exams where dose is matched to clinical indication); or iterative reconstruction. Contrast material: OMNI 350; Contrast volume: 100 ml; Contrast route: INTRAVENOUS (IV); COMPARISON: CT abdomen pelvis wo con [id number] 08/19/2023 9:12 PM RADIATION DOSE METRICS: Total DLP (mGy-cm): 1124.8 FINDINGS: Liver: Normal. No mass. Gallbladder and bile ducts: Normal. No calcified stones. No ductal dilation. Pancreas: Normal. No ductal dilation. Spleen: Normal. No splenomegaly. Adrenal glands: Normal. No mass. Kidneys and ureters: There is a hypodense lesion measuring up 5.6 cm in 54 Hounsfield units along the posterior cortex of the right kidney which does not meet imaging criteria for a simple cyst and a three-phase renal CT or renal may be of benefit to more fully characterize this finding. Stomach and bowel: Unremarkable. No obstruction. No mucosal thickening. Appendix: No evidence of appendicitis. Intraperitoneal space: Unremarkable. No free air. No significant fluid collection. Vasculature: Unremarkable. No abdominal aortic aneurysm. Lymph nodes: Multiple prominent bilateral groin lymph nodes which are indeterminate but may be reactive in nature. Urinary bladder: There is a Jeffery catheter in the bladder. The bladder is decompressed. Reproductive: Unremarkable as visualized. Bones/joints: Unremarkable. No acute fracture. Soft tissues: Unremarkable. CT/CT abdomen pelvis w con* [id number] IMPRESSION: 1. No bowel obstruction or inflammatory process associated with the bowel. 2. No free air or significant free fluid in the abdomen or pelvis. 3. No evidence of appendicitis. 4. There is a hypodense lesion measuring up 5.6 cm in 54 Hounsfield units along the posterior cortex of the right kidney which does not meet imaging criteria for a simple cyst and a three-phase renal CT or renal may be of benefit to more fully characterize this finding. Additional hypodense lesion in the right kidney measuring up to 1.9 cm can be assessed at the same time. 5. Multiple prominent bilateral groin lymph nodes and retroperitoneal lymph nodes which are indeterminate but may be reactive in nature.
--- NOTE | 2023-09-22 18:28 | ECG_ITS ---
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 Measurements Intervals [facility] Rate: 102 P: 79 UT: 189 QRS: 225 QRSD: 141 T: 27 QT: 428 QTc: 559 Interpretive Statements SINUS TACHYCARDIA WITH OCCASIONAL VENTRICULAR PREMATURE COMPLEXES WITH FREQUENT SUPRAVENTRICULAR PREMATURE COMPLEXES RIGHT AXIS DEVIATION [QRS AXIS > 100] INTRAVENTRICULAR CONDUCTION DELAY [130+ ms QRS DURATION] Compared to ECG 09/21/2023 15:37:26 Intraventricular conduction delay now present Sinus rhythm no longer present Right bundle-branch block no longer present T-wave abnormality no longer present Possible ischemia no longer present Electronically Signed On 09-22-2023 23:58:08 CDT by Yeimy Mike M.D. [id number]
[2023-09-22] MEDS: morphine 4 mg/mL SDV 1 mL 2 MG IVP (18:45)
[2023-09-22 18:47] LABS: ABG PH Result 7.35 (7.35-7.45); Arterial Blood Gas Hematocrit 47.6 % (42-52); Base Excess ABG 9.7 mmol/L (-2.0-2.0); Blood Gas Allen Test Pos; Blood Gas Operator Identificat MONRO; Blood Gas Sample Site Femoral, left; Blood Gas Sample Type Arterial; Carboxyhemoglobin 1.7 %THgb (0.4-20.1); Fractionated Inspired Oxygen 2.5 %; HCO3 ABG 38.9 mmol/L (22-26); HGB O2 Sat 92.9 % (95-100); Ionized Calcium Level - ABG 1.2 mmol/L (1.1-1.4); Methemoglobin 0.2 % (0.4-1.5); Oxygen Device NC; Oxygen Saturation ABG 94.6; PO2 ABG 71.1 mmHg (80.0-100.0); PO2 FiO2 Ratio Arterial Blood 0; Total Hemoglobin 15.5 g/dL (14-18)
[2023-09-22 18:49] LABS: ABG PCO2 71.4 mmHg (35-45)
--- NOTE | 2023-09-22 20:14 | SUR.OPER ---
Pts catheter was manually irrigated at this time, no clots were noted. Urine is now draining with no blood noted. Pt tolerated well.
[2023-09-22 20:26] LABS: Basophils % 0.5 %; Eosinophils # 0.1 10^3/uL (0.0-0.8); Eosinophils % 1.1 %; Hematocrit 48.9 % (37-53); Lymphocytes # 1.1 10^3/uL (0.8-4.8); Lymphocytes % 14.1 %; Mean Corpuscular HGB Conc 31.3 g/dL (30-55); Mean Corpuscular Hemoglobin 30.6 pg (27-33); Mean Corpuscular Volume 97.8 fl (82-101); Mean Platelet Volume 8.6 fL (7.4-10.4); Monocytes # 0.8 10^3/uL (0.2-0.9); Monocytes % 9.6 %; Neutrophils # 5.97 10^3/uL (1.8-7.7); Neutrophils % 74.2 %; Nucleated Red Blood Cells % 0 %; Platelet Count 219 10^3/cmm (157-399); Red Cell Distribution Width 13.4 % (12.1-15.1); White Blood Count 8.04 10^3/uL (3.29-11.43)
[2023-09-22] MEDS: vancomycin 1,750 MG/350 ML PIGGYBACK 233.330000000000013 MG IV (20:28)
[2023-09-22 20:46] LABS: Troponin(5th) Baseline 56 ng/L (0-15)
[2023-09-22] MEDS: iohexol 350 mg/mL 500 mL Btl (per mL) IV (21:33)
[2023-09-22] MEDS: piperacillin-tazobactam 3.375 GM in sodium chloride 0.9% (plus) 50 ML IV (23:34)
[2023-09-23] VITALS (28 sets, daily range): BP systolic 85–159; BP diastolic 55–92; PULSE 68–182; RESP 16–27; TEMP 36.5–36.6; O2SAT 90–100
[2023-09-23 00:58] LABS: Basophils % 0.5 %; Eosinophils # 0.1 10^3/uL (0.0-0.8); Eosinophils % 0.6 %; Hematocrit 50.1 % (37-53); Lymphocytes # 0.9 10^3/uL (0.8-4.8); Lymphocytes % 10.8 %; Mean Corpuscular HGB Conc 30.3 g/dL (30-55); Mean Corpuscular Hemoglobin 30.6 pg (27-33); Mean Corpuscular Volume 100.8 fl (82-101); Mean Platelet Volume 8.6 fL (7.4-10.4); Monocytes # 0.8 10^3/uL (0.2-0.9); Monocytes % 9.2 %; Neutrophils # 6.42 10^3/uL (1.8-7.7); Neutrophils % 78.4 %; Nucleated Red Blood Cells % 0 %; Platelet Count 204 10^3/cmm (157-399); Red Blood Count 4.97 10^6/uL (3.85-5.65); Red Cell Distribution Width 13.3 % (12.1-15.1); White Blood Count 8.18 10^3/uL (3.29-11.43)
[2023-09-23 01:17] LABS: Troponin 5 6HR 49.97 ng/L (0-15)
[2023-09-23 01:20] LABS: Anion Gap 13.3 (5-19); Blood Urea Nitrogen 19 mg/dL (8-23); Calcium 9.5 mg/dL (8.5-10.5); Carbon Dioxide 34 mmol/L (22-29); Chloride 96 mmol/L (98-107); Creatinine Clr Calc Pharmacy 106.9444; Glomerular Filtration Rate 134.8 mL/min (90-130); Glucose 111 mg/dL (65-115); Magnesium 1.9 mg/dL (1.7-2.3); Osmolality Calculated 291 mOsm/kg (285-295); Potassium 4.3 mmol/L (3.5-5.1); Sodium 139 mmol/L (136-145)
[2023-09-23 01:27] LABS: Troponin 5 6HR Delta -6.03 ng/L (0-12)
[2023-09-23] MEDS: ipratropium-albuterol 3 mL Neb INHALATION ×4 (02:39→20:11)
[2023-09-23] MEDS: ketorolac 30 mg/mL INJ 15 MG IVP ×3 (03:36→19:10)
[2023-09-23] MEDS: amlodipine 10 mg Tablet PO (05:17)
[2023-09-23] MEDS: piperacillin-tazobactam 3.375 GM in sodium chloride 0.9% (plus) 50 ML IV ×3 (06:15→23:28)
[2023-09-23] MEDS: sennosides-docusate Tablet 1 TAB PO (08:11)
[2023-09-23] MEDS: potassium chloride ER 10 mEq Tablet PO (08:11)
[2023-09-23] MEDS: bumetanide 1 mg Tablet PO (08:12)
[2023-09-23] MEDS: vancomycin 1,750 MG/350 ML PIGGYBACK 233.300000000000011 MG IV ×2 (08:15→20:23)
[2023-09-23] MEDS: budesonide 0.5 mg/2 mL Neb INHALATION ×2 (08:17→20:11)
[2023-09-23] MEDS: acetaminophen 325 mg Tablet 650 MG PO (10:34)
--- NOTE | 2023-09-23 11:42 | PC.NURSE ---
At approximately 1050 program writer went to patients room to transport him to CT. PT and OT was present in the room and ambulated patient with minimal assist and walker. During transfer down in CT patient refused to stand up and was attempting to sit down during transfer. Patient requested staff just push him over onto the bed from the wheelchair. Five staff members and use of gaitbelt used to assist patient safely onto bed. When patient was assisted into a supine position patient began yelling to get him up and refused the CT. Extensive assist used to transfer patient back into wheelchair due to patient stating he couldn't move. Once pt was brought back into his room. Patient transferred with 2 assist and walker with no problem noted. Once patient sat down in recliner program writer placed patients meal tray in front of him and patient lifted both lower extremities and placed them under the table and began feeding himself. Patient also asked for a diet Dr stevens. Riveting Machine Operator Automatic assessed patients neuro status and patient is alert and oriented x4.
--- NOTE | 2023-09-23 12:43 | PM.PN ---
Subjective Subjective: Patient experience mild hematuria yesterday which resolved on its own. Catheter was flushed and no longer any hematuria present. Eliquis was held. We have suspicion he might be pulling on the catheter. Patient also had a report of blood-tinged sputum yesterday. Eliquis holding today. We may restart since hemoglobin is stable. He also complained that he could not move his arms and had intense abdominal pain. However later CT abdomen pelvis was done which did not show any acute pathology. Subsequently patient's abdominal pain resolved on its own. He was also seen moving his arms and eating with his own hands at a later time. This morning discussed with RN and patient was doing okay and was at his baseline however when I went to evaluate patient at bedside he said he could not move his arms or his legs. He would not follow any commands either. For suspicion of stroke CTA head and neck was ordered. However thereafter after he left the room patient was witnessed by the nurse touching his neck and telling her that he is having pain. He could clearly move his arms again. Patient was taken down to CT OT and PT were present in the room and ambulated the patient with minimal assist and a walker. Then patient was transferred to CT however patient refused to stand up and was attempting to sit down during transfer. Patient requested staff to push him over onto the bed from the wheelchair. That was done and patient was moved safely into the bed. However once he was sitting up on the CT table he refused to go ahead with the study and wanted to go back into the wheelchair. Patient was then brought back to the room and with 2 assist and walker got back into the recliner with no problems. Meal tray was placed in front of him and patient lifted both lower extremities and placed him onto the table and then began feeding himself with his own hands. He also went ahead and asked for Dr. Garcia. Neuroassessment: Alert oriented x 4 able to move all [address] head and neck canceled since patient refused to go ahead with the study. He would not even let us do a dry head CT. Repeat blood cultures obtained yesterday are negative to date. Patient is on baseline 4 L nasal cannula at this time saturating 94 to 95%. Vitals are stable. Lymphedema wraps have been requested for bilateral lower extremities. Vitals/I&O/Wt Last Vital Signs Temp 97.7 F 09/23/23 04:00 Pulse 97 09/23/23 08:00 Resp 20 H 09/23/23 08:00 BP 129/74 09/23/23 07:30 Pulse Ox 94 09/23/23 08:00 O2 Del Method Nasal Cannula 09/23/23 08:00 O2 Flow Rate 4 09/23/23 08:00 FiO2 30 09/23/23 04:56 09/22/23 09/23/23 09/23/23 22:59 06:59 14:59 Intake Total 290 / 650 640 / 1290 400 / 400 Output Total 250 / 250 300 / 550 Balance 40 / 400 340 / 740 400 / 400 Weight last 48 hrs Weight 102.058 kg Weight 102.058 kg Weight 102.058 kg Physical Exam Narrative: Morbidly obese male Currently on 4 L nasal cannula. Hemodynamically stable Signs of fluid overload Chronic lymphedema. Venous stasis dermatitis with venous stasis ulcer Nonfocal neuroexam, please see subjective above. GCS 15 S1, S2 variable Urinary Catheter Management: Jeffery: Cath Placed During This Visit: yes Reason for Continuing Indwelling Catheter: Other Urinary Catheter Date of Insertion: 09/22/23 Urinary Catheter Time of Insertion: 02:46 Data 09/23/23 00:52 09/23/23 00:52 Micro: Microbiology 09/22/23 11:20 Blood Culture - Preliminary Blood NEGATIVE TO DATE 09/22/23 11:17 Blood Culture - Preliminary Blood NEGATIVE TO DATE 09/21/23 14:52 Blood Culture - Preliminary Blood NEGATIVE TO DATE 09/21/23 15:02 Blood Culture - Preliminary Blood Staphylococcus epidermidis A&P Assessment and plan (1) COPD exacerbation: (2) Venous stasis ulcer: (3) Acute on chronic respiratory failure with hypoxia and hypercapnia: (4) Obstructive sleep apnea: Plan ACUTE COPD exacerbation Uses BiPAP at night and 3 L of oxygen in the daytime which is his baseline Mild respiratory acidosis noted on admission, he was put on BiPAP, repeat ABG in the morning Patient noncompliant to BiPAP and other medications at times. He stated he takes them sometimes CHF: It is very difficult to assess his volume status considering his high BMI Lymphedema Patient on Bumex 1 mg oral at home. ? I will place on Bumex 1 mg IV daily. History of PE continue Eliquis ? Eliquis was held initially yesterday with mild episode of hematuria however I will continue it at this time due to patient's history of PE. Hemoglobin is stable. Venous stasis dermatitis Dressing change on daily basis Initially patient was not wanting to go to a halfway however he is agreed at this time to go for rehab. UTI: Initial urinalysis sample was not a clean-catch. Unsure if he truly has a UTI. We have placed on vancomycin and Zosyn for empiric coverage. I may de-escalate by tomorrow if no other clinical signs of infection. 1 out of 4 bottles positive for staph epi. This is most likely a contaminant at this time. Will continue on ceftriaxone. I will repeat blood cultures today. I do not believe this is true bacteremia. Pavan blood cultures are pending at this time. Bilateral upper and lower extremity weakness Patient has been feeling weaker than before. This may be a combination of him being noncompliant to his BiPAP and underlying obstructive sleep apnea causing daytime somnolence and lethargy. I believe patient's report of weakness and him stating that he cannot move his legs or arms is probably a psychological issue at this point. When no one is in the room he is able to move all 4 extremities okay. I do not believe this is a stroke at this point. He also refused to go ahead with a CTA head and neck to rule out a stroke this morning. Please read subjective portion of this note. Patient was able to work with physical therapy and with a 2 assist use a walker and get to his recliner. Nursing notes also indicate that patient moved his legs on his own put them under the table and use both his hands to feed himself. Yesterday he was seen eating [employer] by himself with no issues however continues to report that he cannot move his arms or legs when he can clearly do so. I believe patient will be acting like this by choice. Abdominal pain can be attributed to possible constipation which is evident on the abdominal CT. I will continue docusate senna at this time. May order lactulose 20 g x 1. Again patient told the nurse today that he is not compliant with his medications or his BiPAP at home. Cardiac consistent carb diet Disposition: Would recommend halfway placement With patient's compliance to do his BiPAP and medications and chronic bilateral lymphedema it would be best if he go to a halfway however patient is not interested in that at this time unless it is for the purposes of rehab. He has capacity to make his decisions. Of action. fabric worker fitter alerted and working on possible short-term placement for rehab. Discussed with patient's brother over the phone yesterday. He would like patient to go to a halfway for rehab. Case management working on the above. Attestations Medical Necessity Statement*: Continue to work on placement Diagnoses COPD exacerbation J44.1 Venous stasis ulcer I83.009; L97.909 Acute on chronic respiratory failure with hypoxia and hypercapnia J96.21; J96.22 Obstructive sleep apnea G47.33
--- NOTE | 2023-09-23 12:49 | PC.OT ---
OT EVALUATION ORDERS RECEIVED FOR LYMPHEDEMA WRAPS. PER PROTOCOL, PATIENT WITH CHF, MUST BE DIURESED X48 HOURS PRIOR TO INITIATION OF LYMPHEDEMA CARE. CLT TO RETURN ON WEDNESDAY AND WILL ADDRESS AT THAT TIME.
[2023-09-23 14:07] LABS: Arterial Blood Gas Hematocrit 47.9 % (42-52); Base Excess ABG 5.1 mmol/L (-2.0-2.0); Blood Gas Allen Test Pos; Blood Gas Operator Identificat glc; Blood Gas Sample Site Radial, right; Blood Gas Sample Type Arterial; Carboxyhemoglobin 1.4 %THgb (0.4-20.1); HCO3 ABG 38.5 mmol/L (22-26); HGB O2 Sat 89.4 % (95-100); Ionized Calcium Level - ABG 1.3 mmol/L (1.1-1.4); Methemoglobin 0.2 % (0.4-1.5); Oxygen Device NC; Oxygen Saturation ABG 90.8; PO2 ABG 66.9 mmHg (80.0-100.0); Potassium Level - ABG 3.8 mmol/L (3.5-5.0); Total Hemoglobin 15.6 g/dL (14-18)
--- NOTE | 2023-09-23 14:15 | PM.CCNAC ---
Critical Care Event Note ABG 7.1 6.9 on 4 L of cannula at this time. Called by respiratory therapist. Will place patient on BiPAP stat and moved down to ICU. Will recheck a blood gas and if no improvement patient will need to be intubated. Diagnosis: CO2 narcosis The high probability of a clinically significant, sudden or life threatening deterioration of the patient's [respiratory] system(s) required my full and direct attention, intervention and personal management. The critical care time is as shown. This time is in addition to time spent performing any reported procedures but includes the following: [x] Data and vital sign review and interpretation [x] Patient assessment, examination and intervention [x] Documentation [x] Medication orders and management Critical Care Time Code activated: No Critical Care Time (min): 20 Coding Level of Care Code Acute Code for Chg Fwd
[2023-09-23 14:37] LABS: ABG PH Result 7.16 (7.35-7.45)
[2023-09-23] MEDS: bumetanide 0.25 mg/mL SDV 4 mL 1 MG IVP (14:50)
--- NOTE | 2023-09-23 15:05 | PC.NURSE ---
recieved from medsurg up in chair on bipap both legs swollen and weeping edema and scaling of legs noted .. appears restless and agitated
[2023-09-23] MEDS: dexmedeTOMIDine 0.9 % NaCL 400 MCG/100 ML PREMIX 2.54999999999999982 MCG IV (18:04)
[2023-09-23 18:07] LABS: Alveolar-Arterial Oxygen Gradi 9.3 mmHg (5-10); Arterial Blood Gas Hematocrit 46.1 % (42-52); Blood Gas Allen Test Pos; Blood Gas Operator Identificat CAK; Blood Gas Sample Site Radial, left; Blood Gas Sample Type Arterial; Carboxyhemoglobin 1.3 %THgb (0.4-20.1); HCO3 ABG 34.7 mmol/L (22-26); HGB O2 Sat 97.1 % (95-100); Ionized Calcium Level - ABG 1.2 mmol/L (1.1-1.4); Methemoglobin 0.1 % (0.4-1.5); Oxygen Device BIPAP; Oxygen Saturation ABG 98.4; PO2 ABG 86.9 mmHg (80.0-100.0); PO2 FiO2 Ratio Arterial Blood 0; Potassium Level - ABG 3.9 mmol/L (3.5-5.0)
[2023-09-23] MEDS: apixaban 5 mg Tablet PO (22:07)
[2023-09-24] VITALS (38 sets, daily range): BP systolic 101–140; BP diastolic 57–84; PULSE 65–120; RESP 15–120; TEMP 36.5–37; O2SAT 90–99
[2023-09-24] MEDS: ipratropium-albuterol 3 mL Neb INHALATION ×4 (02:48→20:51)
[2023-09-24] MEDS: ondansetron 2 mg/ML SDV 2 mL 4 MG IVP ×3 (03:15→18:56)
[2023-09-24] MEDS: piperacillin-tazobactam 3.375 GM in sodium chloride 0.9% (plus) 50 ML IV ×2 (06:27→14:52)
[2023-09-24] MEDS: amlodipine 10 mg Tablet PO (06:27)
[2023-09-24 07:53] LABS: Basophils % 0.4 %; Eosinophils # 0.1 10^3/uL (0.0-0.8); Eosinophils % 1.5 %; Hematocrit 46.3 % (37-53); Lymphocytes % 13.1 %; Mean Corpuscular HGB Conc 31.3 g/dL (30-55); Mean Corpuscular Hemoglobin 30.5 pg (27-33); Mean Corpuscular Volume 97.5 fl (82-101); Mean Platelet Volume 8.8 fL (7.4-10.4); Monocytes # 0.7 10^3/uL (0.2-0.9); Monocytes % 9.7 %; Neutrophils # 5.48 10^3/uL (1.8-7.7); Neutrophils % 74.9 %; Nucleated Red Blood Cells % 0 %; Platelet Count 184 10^3/cmm (157-399); Red Blood Count 4.75 10^6/uL (3.85-5.65); Red Cell Distribution Width 13.2 % (12.1-15.1); White Blood Count 7.32 10^3/uL (3.29-11.43)
[2023-09-24] MEDS: budesonide 0.5 mg/2 mL Neb INHALATION ×2 (08:06→20:51)
[2023-09-24 08:13] LABS: Blood Urea Nitrogen 22 mg/dL (8-23); Calcium 9.6 mg/dL (8.5-10.5); Carbon Dioxide 37 mmol/L (22-29); Chloride 95 mmol/L (98-107); Glomerular Filtration Rate 134.8 mL/min (90-130); Glucose 124 mg/dL (65-115); Osmolality Calculated 295 mOsm/kg (285-295); Phosphorus 5.2 mg/dL (2.5-4.5); Sodium 140 mmol/L (136-145)
[2023-09-24 08:14] LABS: Vancomycin Trough 14.9 ug/mL (10-15)
[2023-09-24 08:17] LABS: Creatinine Clr Calc Pharmacy 106.9444
[2023-09-24] MEDS: dexmedeTOMIDine 0.9 % NaCL 400 MCG/100 ML PREMIX 2.54999999999999982 MCG IV (08:30)
[2023-09-24] MEDS: vancomycin 1,750 MG/350 ML PIGGYBACK 233.300000000000011 MG IV (08:50)
[2023-09-24] MEDS: apixaban 5 mg Tablet PO ×2 (08:51→21:10)
[2023-09-24] MEDS: sennosides-docusate Tablet 1 TAB PO (08:51)
--- NOTE | 2023-09-24 09:09 | PC.NURSE ---
Refusing to get out of the chair or change positions. Unable to assess posterior.
--- NOTE | 2023-09-24 11:04 | PC.NURSE ---
Feeding Patient states he can't lift/move his arms and request nurse to feed him. Patient assisted with feeding. Patient later seen talking on his cell phone texting/calling without assistance. Patient educated on self care and ADLs.
--- NOTE | 2023-09-24 12:33 | P.PN_ITS ---
Subjective 2 Subjective: Procedure narcosis patient had to be transferred to ICU yesterday on BiPAP. He improved quite rapidly with BiPAP and next gas was normal range. ? Patient is talkative this morning. Able to use his arms and legs. ? Bill catheter draining pink-tinged urine, concentrated, with some whitish residue. ? Discussed with patient regarding Bill. Patient asked me what can he do to improve and get better. I said that he needs to be compliant to BiPAP with his medications. Patient accepted to [facility], insurance authorization pending at this time. Blood culture positive for 1 bottle staph epi which is most likely contaminant but sensitive to linezolid. I will complete a 7-day course at this time. Repeat blood cultures have been negative today. He says he is constipated however does not want a laxative. Vitals/I&O/Wt Last Vital Signs Temp 98.2 F 09/24/23 04:30 Pulse 76 09/24/23 12:00 Resp 20 H 09/24/23 12:00 BP 107/77 09/24/23 12:00 Pulse Ox 96 09/24/23 12:00 O2 Del Method Nasal Cannula 09/24/23 12:00 O2 Flow Rate 2 09/24/23 12:00 FiO2 30 09/23/23 23:26 09/23/23 09/24/23 09/24/23 22:59 06:59 14:59 Intake Total 650 / 1050 50 / 1100 438.420 / 438.420 Output Total 600 / 600 450 / 1050 Balance 50 / 450 -400 / 50 438.420 / 438.420 Physical Exam 2 Narrative: Morbidly obese male Currently on 3 L nasal cannula. Hemodynamically stable Chronic lymphedema. Venous stasis dermatitis with venous stasis ulcer Nonfocal neuroexam, GCS 15 S1, S2 variable Urine dark yellow concentrated, likely secondary to Bill tubing. Clear to auscultation bilaterally, decreased air entry no active wheezes or rhonchi. Obese body habitus difficult to auscultate heart and lungs. Sitting up in recliner. Spontaneously moving all 4 extremities. Urinary Catheter Management: Bill: Cath Placed During This Visit: yes Reason for Continuing Indwelling Catheter: Accurate Measurement of Urinary Output in Critically Ill Patients Urinary Catheter Date of Insertion: 09/22/23 Urinary Catheter Time of Insertion: 02:46 Data 09/24/23 07:21 09/24/23 07:21 Micro: Microbiology 09/21/23 15:02 Blood Culture - Final Blood Staphylococcus epidermidis 09/22/23 11:20 Blood Culture - Preliminary Blood NEGATIVE TO DATE 09/22/23 11:17 Blood Culture - Preliminary Blood NEGATIVE TO DATE A&P Assessment and plan (1) COPD exacerbation: (2) Venous stasis ulcer: (3) Acute on chronic respiratory failure with hypoxia and hypercapnia: (4) Obstructive sleep apnea: Plan ACUTE COPD exacerbation Uses BiPAP at night and 3 L of oxygen in the daytime which is his baseline Mild respiratory acidosis noted on admission, he was put on BiPAP, repeat ABG in the morning Patient noncompliant to BiPAP and other medications at times. He stated he takes them sometimes CHF: It is very difficult to assess his volume status considering his high BMI Lymphedema Patient on Bumex 1 mg oral at home. ? I will place on Bumex 1 mg IV daily. History of PE continue Eliquis ? Eliquis was held initially yesterday with mild episode of hematuria however I will continue it at this time due to patient's history of PE. Hemoglobin is stable. Venous stasis dermatitis Dressing change on daily basis Initially patient was not wanting to go to a fpc however he is agreed at this time to go for rehab. UTI: Initial urinalysis sample was not a clean-catch. Unsure if he truly has a UTI. 1 out of 4 bottles positive for staph epi. This is most likely a contaminant at this time. senstive to lizezolid will tx total 7 days Remove bill catheter Bilateral upper and lower extremity weakness Patient has been feeling weaker than before. This may be a combination of him being noncompliant to his BiPAP and underlying obstructive sleep apnea causing daytime somnolence and lethargy. I believe patient's report of weakness and him stating that he cannot move his legs or arms is probably a psychological issue at this point. When no one is in the room he is able to move all 4 extremities okay. I do not believe this is a stroke at this point. He also refused to go ahead with a CTA head and neck to rule out a stroke this morning. Please read subjective portion of this note. Patient was able to work with physical therapy and with a 2 assist use a walker and get to his recliner. Nursing notes also indicate that patient moved his legs on his own put them under the table and use both his hands to feed himself. Yesterday he was seen eating [employer] by himself with no issues however continues to report that he cannot move his arms or legs when he can clearly do so. I believe patient will be acting like this by choice. Abdominal pain can be attributed to possible constipation which is evident on the abdominal CT. I will continue docusate senna at this time. May order lactulose 20 g x 1 however pt refusing. Again patient told the nurse today that he is not compliant with his medications or his BiPAP at home. Cardiac consistent carb diet Disposition: [facility], pending insurance authorization Attestations 2 Medical Necessity Statement*: Continue to work on placement Coding Level of Care Code Acute Code for Chg Fwd Diagnoses COPD exacerbation J44.1 Venous stasis ulcer I83.009; L97.909 Acute on chronic respiratory failure with hypoxia and hypercapnia J96.21; J96.22 Obstructive sleep apnea G47.33
--- NOTE | 2023-09-24 14:11 | PC.NURSE ---
Refusing to move for nurse. PT called for assessment.
[2023-09-24] MEDS: bumetanide 0.25 mg/mL SDV 4 mL 1 MG IVP (14:52)
[2023-09-24] MEDS: ketorolac 30 mg/mL INJ 15 MG IVP ×2 (14:52→23:45)
[2023-09-24] MEDS: acetaminophen 325 mg Tablet 650 MG PO (21:10)
[2023-09-24] MEDS: linezolid 600 mg Tablet PO (21:10)
[2023-09-25] VITALS (13 sets, daily range): BP systolic 129–153; BP diastolic 83–84; PULSE 63–93; RESP 15–22; TEMP 36.4–37; O2SAT 91–97
[2023-09-25] MEDS: ipratropium-albuterol 3 mL Neb INHALATION ×4 (01:46→20:08)
[2023-09-25 02:48] LABS: Basophils % 0.5 %; Eosinophils # 0.1 10^3/uL (0.0-0.8); Eosinophils % 1.8 %; Hematocrit 43.5 % (37-53); Lymphocytes # 1.1 10^3/uL (0.8-4.8); Lymphocytes % 14.8 %; Mean Platelet Volume 8.9 fL (7.4-10.4); Monocytes # 0.8 10^3/uL (0.2-0.9); Monocytes % 10.5 %; Neutrophils # 5.49 10^3/uL (1.8-7.7); Nucleated Red Blood Cells % 0 %; Platelet Count 226 10^3/cmm (157-399); Red Blood Count 4.63 10^6/uL (3.85-5.65); Red Cell Distribution Width 13.1 % (12.1-15.1); White Blood Count 7.63 10^3/uL (3.29-11.43)
[2023-09-25 03:16] LABS: Anion Gap 14.9 (5-19); Blood Urea Nitrogen 25 mg/dL (8-23); Calcium 9.8 mg/dL (8.5-10.5); Carbon Dioxide 34 mmol/L (22-29); Chloride 96 mmol/L (98-107); Creatinine Clr Calc Pharmacy 106.9444; Glomerular Filtration Rate 134.8 mL/min (90-130); Glucose 109 mg/dL (65-115); Magnesium 1.9 mg/dL (1.7-2.3); Osmolality Calculated 297 mOsm/kg (285-295); Potassium 3.9 mmol/L (3.5-5.1); Sodium 141 mmol/L (136-145)
[2023-09-25] MEDS: budesonide 0.5 mg/2 mL Neb INHALATION ×2 (08:38→20:07)
[2023-09-25] MEDS: sennosides-docusate Tablet 1 TAB PO (09:03)
[2023-09-25] MEDS: amlodipine 10 mg Tablet PO (09:03)
[2023-09-25] MEDS: apixaban 5 mg Tablet PO ×2 (09:03→20:44)
[2023-09-25] MEDS: linezolid 600 mg Tablet PO ×2 (09:03→20:44)
[2023-09-25] MEDS: collagenase oint 30 gm 1 APPLIC TOPICAL (09:04)
[2023-09-25] MEDS: ondansetron 2 mg/ML SDV 2 mL 4 MG IVP (09:30)
[2023-09-25] MEDS: ketorolac 30 mg/mL INJ 15 MG IVP (09:30)
--- NOTE | 2023-09-25 11:57 | P.PN_ITS ---
Subjective 2 Subjective: seen this am no acute events overnight patient awake alert oriented says there is no way he will let us remove bill catheter i have talked with patient since last 2 days and trying to convince him but he will not let us remove bill he says he cannot pee on his own even using a urinal and would like to keep catheter RN also tried to address this but patient refuses. I tried to explain him infection risk but he still refuses. Vitals/I&O/Wt Last Vital Signs Temp 97.6 F 09/25/23 11:41 Pulse 88 09/25/23 11:41 Resp 16 09/25/23 11:41 BP 129/84 09/25/23 11:41 Pulse Ox 93 09/25/23 11:41 O2 Del Method Nasal Cannula 09/25/23 11:41 O2 Flow Rate 2 09/25/23 08:00 FiO2 30 09/25/23 03:44 09/24/23 09/25/23 09/25/23 22:59 06:59 14:59 Intake Total 650 / 1208.420 480 / 1688.420 Output Total 400 / 900 300 / 1200 Balance 250 / 308.420 180 / 488.420 Weight last 48 hrs Weight 102.058 kg Physical Exam 2 Narrative: Morbidly obese male Currently on 3 L nasal cannula. Hemodynamically stable Chronic lymphedema. Venous stasis dermatitis with venous stasis ulcer Nonfocal neuroexam, GCS 15 S1, S2 variable Urine dark yellow concentrated, likely secondary to Bill tubing. Clear to auscultation bilaterally, decreased air entry no active wheezes or rhonchi. Obese body habitus difficult to auscultate heart and lungs. Sitting up in recliner. Spontaneously moving all 4 extremities. Urinary Catheter Management: Bill: Cath Placed During This Visit: yes Reason for Continuing Indwelling Catheter: Required Immobilization for Trauma or Surgery or Anesthesia Urinary Catheter Date of Insertion: 09/22/23 Urinary Catheter Time of Insertion: 02:46 Data 09/25/23 02:06 09/25/23 02:06 Micro: Microbiology 09/21/23 15:02 Blood Culture - Final Blood Staphylococcus epidermidis A&P Assessment and plan (1) COPD exacerbation: (2) Venous stasis ulcer: (3) Acute on chronic respiratory failure with hypoxia and hypercapnia: (4) Obstructive sleep apnea: Plan ACUTE COPD exacerbation Uses BiPAP at night and 3 L of oxygen in the daytime which is his baseline Mild respiratory acidosis noted on admission, he was put on BiPAP, repeat ABG in the morning Patient noncompliant to BiPAP and other medications at times. He stated he takes them sometimes CHF: It is very difficult to assess his volume status considering his high BMI Lymphedema Patient on Bumex 1 mg oral at home. ? I will place on Bumex 1 mg IV daily. History of PE continue Eliquis ? Eliquis was held initially yesterday with mild episode of hematuria however I will continue it at this time due to patient's history of PE. Hemoglobin is stable. Venous stasis dermatitis Dressing change on daily basis Initially patient was not wanting to go to a intermediate however he is agreed at this time to go for rehab. UTI: Initial urinalysis sample was not a clean-catch. Unsure if he truly has a UTI. 1 out of 4 bottles positive for staph epi. This is most likely a contaminant at this time. senstive to lizezolid will tx total 7 days Remove bill catheter Bilateral upper and lower extremity weakness Patient has been feeling weaker than before. This may be a combination of him being noncompliant to his BiPAP and underlying obstructive sleep apnea causing daytime somnolence and lethargy. I believe patient's report of weakness and him stating that he cannot move his legs or arms is probably a psychological issue at this point. When no one is in the room he is able to move all 4 extremities okay. I do not believe this is a stroke at this point. He also refused to go ahead with a CTA head and neck to rule out a stroke this morning. Please read subjective portion of this note. Patient was able to work with physical therapy and with a 2 assist use a walker and get to his recliner. Nursing notes also indicate that patient moved his legs on his own put them under the table and use both his hands to feed himself. Yesterday he was seen eating [employer] by himself with no issues however continues to report that he cannot move his arms or legs when he can clearly do so. I believe patient will be acting like this by choice. Abdominal pain can be attributed to possible constipation which is evident on the abdominal CT. I will continue docusate senna at this time. May order lactulose 20 g x 1 however pt refusing. Again patient told the nurse today that he is not compliant with his medications or his BiPAP at home. Cardiac consistent carb diet Disposition: [facility] care, pending insurance authorization NO CHANGE TO ABOVE PLAN TODAY AWAITING PLACEMENT Attestations 2 Medical Necessity Statement*: Continue to work on placement Diagnoses COPD exacerbation J44.1 Venous stasis ulcer I83.009; L97.909 Acute on chronic respiratory failure with hypoxia and hypercapnia J96.21; J96.22 Obstructive sleep apnea G47.33
--- NOTE | 2023-09-25 13:15 | P.CONIM_ITS ---
Providers/Reason For Consult 2 Consulting Physician/Specialty*: Dr. Elder Delarosa, DO/General surgery Reason for Consult*: Lymphedema of the bilateral lower extremities with venous stasis ulcers Attending Physician: Pamela Ray MD Primary Care Provider: Ed Branch History of Present Illness History of Present Illness Satish Jones is a 68 year old male who I know well and have treated repeatedly for lymphedema in the clinic with Unna boots. He was no longer getting Unna boots due to his significant improvement when he presented to the hospital for acute on chronic respiratory failure. His legs are still much smaller than they were even when I stopped applying Unna boots. He does have some serous drainage from both legs however. He reports that he is having difficulty moving his arms and legs but denies any pain in his lower extremities. General surgery was consulted for his lower extremity wounds. He is currently getting daily dressing changes. He does report some diffuse abdominal pain that does not radiate. Being constipated makes pain worse and nothing makes pain better. He denies any hematochezia and/or melena. Denies any pain in his lower extremities. Denies any fever or chills Review of Systems 2 General: Reports: 10 or more systems reviewed and unremarkable except in HPI and below Medications/Allergies Home Medications Medication Instructions Recorded Confirmed Last Taken Type amlodipine 10 mg tablet 10 mg PO QAM 04/15/23 09/21/23 09/21/23 History fluticasone furoate 200 1 inh inhalation Q24H #60 ea 07/09/23 09/21/23 Unknown Rx mcg-vilanterol 25 mcg/dose inhalation powder (Breo Ellipta) albuterol sulfate 90 mcg/actuation 2 inh inhalation Q8H PRN shortness 08/26/23 09/21/23 Unknown Rx aerosol inhaler of breath or wheezing #8.5 grams apixaban 5 mg tablet (Eliquis) 5 mg PO BID@0900,2100 #60 tabs 08/26/23 09/21/23 Unknown Rx calamine 8 %-zinc oxide 8 % lotion 1 applic topical BID #177 mL 08/26/23 09/21/23 Unknown Rx sennosides 8.6 mg-docusate sodium 1 tab PO DAILY #30 tabs 08/26/23 09/21/23 Unknown Rx 50 mg tablet (Stool Softener-Laxative) tiotropium bromide 1.25 2 inh inhalation DAILY #4 grams 08/26/23 09/21/23 Unknown Rx mcg/actuation mist for inhalation (Spiriva Respimat) potassium chloride 10 mEq 10 meq PO DAILY Only take with 08/27/23 09/21/23 Unknown Rx tablet,extended release Bumex #90 tabs bumetanide 1 mg tablet 1 mg PO BID 30 days #60 tabs 09/27/23 09/21/23 Unknown Rx linezolid 600 mg tablet 600 mg PO BID@0900,2100 7 days #14 09/27/23 Unknown Rx tabs Allergies Allergy/AdvReac Type Severity Reaction Status Date / Time No Known Allergies Allergy Verified 08/11/23 13:14 Current Medications Generic Name Dose Route Start Last Admin Trade Name Freq PRN Reason Stop Dose Admin Acetaminophen 650 mg 09/21/23 19:05 09/27/23 05:13 Acetaminophen 325 Mg Tablet PO 650 mg Q6H PRN Administration Mild/Mod Pain Or Temp >/= 101 Albuterol/Ipratropium 3 ml 09/21/23 20:50 09/27/23 08:13 Ipratropium-Albuterol 3 Ml Neb INHALATION 3 ml Q6H.RESP MAYNOR Administration Amlodipine Besylate 10 mg 09/22/23 06:00 09/27/23 05:13 Amlodipine 10 Mg Tablet PO 10 mg QAM MAYNOR Administration Apixaban 5 mg 09/21/23 21:00 09/27/23 08:51 Apixaban 5 Mg Tablet PO 5 mg BID@0900,2100 MAYNOR Administration Budesonide 0.5 mg 09/22/23 08:00 09/27/23 08:13 Budesonide 0.5 Mg/2 Ml Neb INHALATION 0.5 mg BID.RESPIRATORY MAYNOR Administration Bumetanide 1 mg 09/23/23 14:30 09/26/23 15:02 Bumetanide 0.25 Mg/Ml Sdv 4 Ml IVP 1 mg Q24H MAYNOR Administration Calamine 1 applic 09/22/23 09:00 09/27/23 08:44 Calamine Lotion 177 Ml Btl TOPICAL Not Given BID MAYNOR Collagenase 1 applic 09/22/23 22:00 09/27/23 08:44 Collagenase Oint 30 Gm TOPICAL Not Given DAILY [facility] Linezolid 600 mg 09/24/23 21:00 09/27/23 08:51 Linezolid 600 Mg Tablet PO 600 mg BID@0900,2100 MAYNOR Administration Protocol Ondansetron HCl 4 mg 09/21/23 19:05 09/24/23 18:56 Ondansetron 2 Mg/Ml Sdv 2 Ml IVP 4 mg Q8H PRN Administration vomiting, or N/V if npo Ondansetron HCl 4 mg 09/22/23 12:55 09/26/23 09:45 Ondansetron 2 Mg/Ml Sdv 2 Ml IVP 4 mg Q4H PRN Administration NAUSEA AND VOMITING Senna/Docusate Sodium 1 tab 09/22/23 09:00 09/27/23 08:51 Sennosides-Docusate Tablet PO 1 tab DAILY MAYNOR Administration PFSH Acute 2 PFSH: Medical History (Updated 09/27/23 @ 13:18 by Elder Delarosa DO) Lymphedema -has chronic lymphedema of bilateral LE -LE elevation and lymphedema wraps if appropriate -negative DVT per venous duplex Venous stasis ulcer COPD exacerbation Acute on chronic respiratory failure with hypoxia and hypercapnia Obstructive sleep apnea Ileus Bilateral leg weakness Altered mental status CHF exacerbation Constipation Obesity, morbid Hypertension Respiratory failure Bladder mass Hyperkalemia Hypokalemia Hematoma of frontal scalp Contusion of face UTI (urinary tract infection) Sacral pressure ulcer Thrombocytopenia Alcohol abuse Prostate cancer Pulmonary embolism Surgical History Hx of colonoscopy May 2022, polyps found Status post colonoscopy H/O prostatectomy History of umbilical hernia repair Social History Smoking and tobacco/nicotine status: current some day tobacco/nicotine user Alcohol intake: former Marital status: Single Current occupational status: retired Vitals/I&O/Wt Last Vital Signs Temp 97.6 F 09/27/23 10:24 Pulse 89 09/27/23 10:24 Resp 18 09/27/23 10:24 BP 121/81 09/27/23 10:24 Pulse Ox 95 09/27/23 10:24 O2 Del Method Nasal Cannula 09/27/23 10:24 O2 Flow Rate 2 09/27/23 08:14 FiO2 30 09/25/23 03:44 09/26/23 09/27/23 09/27/23 22:59 06:59 14:59 Intake Total 120 / 600 100 / 700 480 / 480 Output Total 802 / 802 Balance -682 / -202 100 / -102 480 / 480 Weight last 48 hrs Weight 225 lb Physical Exam 2 Narrative: General : Patient is well developed , no acute distress, oriented x3 Head : Normal cephalic, a-traumatic. Ears : Pinnae and external canal are normal. Hearing is normal. Eyes : PERRLA, Sclera and injection are normal. No conjunctival discharge. Nose : Mucous membranes are without erythema. Throat : buccal mucosa is normal, gums are without significant recession or hypertrophy. Lungs : Equal chest rise bilaterally, no use of accessory muscles, trachea is midline. Cor : Rate and rhythm are normal. Abdomen : Soft, ND, NT, no g/r/m Extremities : Pitting edema to the bilateral lower extremities with very superficial venous stasis ulcers draining serous fluid, no cyanosis or clubbing, dorsalis pedis pulses are present bilaterally, non-tender to palpation of calves. Upper extremities are normal bilaterally. Back : non-tender to palpation, no CVA tenderness. Neuro : CN II - XII intact, Upper and lower extremities have equal and full strength Urinary Catheter Management: Jeffery: Cath Placed During This Visit: yes, but has since been removed by the nurse Reason for Continuing Indwelling Catheter: Decision to DC Catheter Urinary Catheter Date of Insertion: 09/22/23 Urinary Catheter Time of Insertion: 02:46 Date Urinary Catheter Removed: 09/26/23 Time Urinary Catheter Discontinued: 17:15 Data 09/27/23 02:43 09/27/23 02:43 Micro: Microbiology 09/22/23 11:20 Blood Culture - Final Blood NO GROWTH AFTER 5 DAYS 09/22/23 11:17 Blood Culture - Final Blood NO GROWTH AFTER 5 DAYS 09/21/23 14:52 Blood Culture - Final Blood NO GROWTH AFTER 5 DAYS A&P Assessment and plan (1) Lymphedema: (2) Venous stasis ulcer: Plan Continue current daily dry dressing changes He would benefit from reapplication of Unna boots bilaterally. I am not can be able to get the supplies for this until Wednesday. If he is discharged prior to me being able to apply Unna boots, he can follow-up in the clinic for possible application. Otherwise no acute surgical intervention Medical management per hospitalist Coding Level of Care Code 95858 Diagnoses Lymphedema I89.0 Venous stasis ulcer I83.009; L97.909
[2023-09-25] MEDS: bumetanide 0.25 mg/mL SDV 4 mL 1 MG IVP (15:34)
[2023-09-25] MEDS: acetaminophen 325 mg Tablet 650 MG PO (15:39)
[2023-09-26] VITALS (16 sets, daily range): BP systolic 123–153; BP diastolic 69–86; PULSE 70–97; RESP 16–20; TEMP 36.4–36.7; O2SAT 92–98
--- NOTE | 2023-09-26 00:17 | PC.NURSE ---
Addendum entered by Lilian Whitlock RN 09/26/23 00:20: Pt has been on his call light several times thus far this shift, as he is unwilling to get his own drinks or blow his own nose stating that he is unable to move his UE. Pt has been encouraged to move his UE as this will aid in strengthening of his UE, however he refuses to do so. Nursing staff will con't to encourage ROM. Original Note: Pt has been on his call light several times thus far this shift, as he is unwilling to get his own drinks or blow his own nose stating that he is unable to move his UE. Pt has been encouraged to do move his UE as this will aid in strengthening of his UE, however he refuses to do so. Nursing staff will con't to encourage ROM.
[2023-09-26] MEDS: ketorolac 30 mg/mL INJ 15 MG IVP ×3 (00:19→20:59)
[2023-09-26] MEDS: acetaminophen 325 mg Tablet 650 MG PO ×2 (00:25→20:58)
[2023-09-26] MEDS: ipratropium-albuterol 3 mL Neb INHALATION ×4 (02:05→20:59)
[2023-09-26] MEDS: amlodipine 10 mg Tablet PO (06:13)
[2023-09-26] MEDS: budesonide 0.5 mg/2 mL Neb INHALATION ×2 (08:42→20:59)
[2023-09-26] MEDS: linezolid 600 mg Tablet PO ×2 (09:24→20:59)
[2023-09-26] MEDS: sennosides-docusate Tablet 1 TAB PO (09:25)
[2023-09-26] MEDS: apixaban 5 mg Tablet PO ×2 (09:25→20:59)
[2023-09-26] MEDS: ondansetron 2 mg/ML SDV 2 mL 4 MG IVP (09:45)
--- NOTE | 2023-09-26 09:57 | P.PN_ITS ---
Subjective 2 Subjective: seen this morning no acute events overnight blood tinged urine in bill bag discussed with pt regarding removing bill he has finally agreed to have removed, updated RN we will flush and remove bill Vitals/I&O/Wt Last Vital Signs Temp 97.6 F 09/26/23 07:26 Pulse 92 09/26/23 09:00 Resp 18 09/26/23 08:00 BP 123/73 09/26/23 07:26 Pulse Ox 94 09/26/23 08:00 O2 Del Method Nasal Cannula 09/26/23 08:00 O2 Flow Rate 2 09/26/23 08:00 FiO2 30 09/25/23 03:44 09/25/23 09/26/23 09/26/23 22:59 06:59 14:59 Intake Total 120 / 360 240 / 240 Output Total 1050 / 1050 100 / 1150 Balance -930 / -690 -100 / -790 240 / 240 Weight last 48 hrs Weight 102.058 kg Physical Exam 2 Narrative: Morbidly obese male Currently on 3 L nasal cannula. Hemodynamically stable Chronic lymphedema. Venous stasis dermatitis with venous stasis ulcer Nonfocal neuroexam, GCS 15 S1, S2 variable blood tinged urine Clear to auscultation bilaterally, decreased air entry no active wheezes or rhonchi. Obese body habitus difficult to auscultate heart and lungs. Sitting up in recliner. Spontaneously moving all 4 extremities. Urinary Catheter Management: Bill: Cath Placed During This Visit: yes Reason for Continuing Indwelling Catheter: Other Urinary Catheter Date of Insertion: 09/22/23 Urinary Catheter Time of Insertion: 02:46 Data 09/25/23 02:06 09/25/23 02:06 A&P Assessment and plan (1) COPD exacerbation: (2) Venous stasis ulcer: (3) Acute on chronic respiratory failure with hypoxia and hypercapnia: (4) Obstructive sleep apnea: Plan ACUTE COPD exacerbation Uses BiPAP at night and 3 L of oxygen in the daytime which is his baseline Mild respiratory acidosis noted on admission, he was put on BiPAP, repeat ABG in the morning Patient noncompliant to BiPAP and other medications at times. He stated he takes them sometimes CHF: It is very difficult to assess his volume status considering his high BMI Lymphedema Patient on Bumex 1 mg oral at home. ? I will place on Bumex 1 mg IV daily. History of PE continue Eliquis ? Eliquis was held initially yesterday with mild episode of hematuria however I will continue it at this time due to patient's history of PE. Hemoglobin is stable. Venous stasis dermatitis Dressing change on daily basis Initially patient was not wanting to go to a prison however he is agreed at this time to go for rehab. UTI: Initial urinalysis sample was not a clean-catch. Unsure if he truly has a UTI. 1 out of 4 bottles positive for staph epi. This is most likely a contaminant at this time. senstive to lizezolid will tx total 7 days Remove bill catheter Bilateral upper and lower extremity weakness Patient has been feeling weaker than before. This may be a combination of him being noncompliant to his BiPAP and underlying obstructive sleep apnea causing daytime somnolence and lethargy. I believe patient's report of weakness and him stating that he cannot move his legs or arms is probably a psychological issue at this point. When no one is in the room he is able to move all 4 extremities okay. I do not believe this is a stroke at this point. He also refused to go ahead with a CTA head and neck to rule out a stroke this morning. Please read subjective portion of this note. Patient was able to work with physical therapy and with a 2 assist use a walker and get to his recliner. Nursing notes also indicate that patient moved his legs on his own put them under the table and use both his hands to feed himself. Yesterday he was seen eating [employer] by himself with no issues however continues to report that he cannot move his arms or legs when he can clearly do so. I believe patient will be acting like this by choice. Abdominal pain can be attributed to possible constipation which is evident on the abdominal CT. I will continue docusate senna at this time. May order lactulose 20 g x 1 however pt refusing. Again patient told the nurse today that he is not compliant with his medications or his BiPAP at home. Cardiac consistent carb diet Disposition: [facility] care, pending insurance authorization REMOVE BILL TODAY, FLUSH NO CHANGE TO ABOVE PLAN TODAY AWAITING PLACEMENT Attestations 2 Medical Necessity Statement*: Continue to work on placement Diagnoses COPD exacerbation J44.1 Venous stasis ulcer I83.009; L97.909 Acute on chronic respiratory failure with hypoxia and hypercapnia J96.21; J96.22 Obstructive sleep apnea G47.33
[2023-09-26] MEDS: bumetanide 0.25 mg/mL SDV 4 mL 1 MG IVP (15:02)
[2023-09-27] VITALS (8 sets, daily range): BP systolic 121–129; BP diastolic 81–90; PULSE 79–97; RESP 16–18; TEMP 36.4–36.7; O2SAT 93–95
[2023-09-27] MEDS: ipratropium-albuterol 3 mL Neb INHALATION ×2 (03:07→08:13)
[2023-09-27 03:31] LABS: Basophils # 0.1 10^3/uL (0.0-0.1); Basophils % 0.9 %; Eosinophils # 0.2 10^3/uL (0.0-0.8); Eosinophils % 2.6 %; Hematocrit 46.3 % (37-53); Lymphocytes # 1.3 10^3/uL (0.8-4.8); Mean Corpuscular Volume 93.7 fl (82-101); Mean Platelet Volume 8.8 fL (7.4-10.4); Monocytes % 10.8 %; Neutrophils # 6.71 10^3/uL (1.8-7.7); Neutrophils % 71.3 %; Nucleated Red Blood Cells % 0 %; Platelet Count 257 10^3/cmm (157-399); Red Blood Count 4.94 10^6/uL (3.85-5.65); Red Cell Distribution Width 13.2 % (12.1-15.1); White Blood Count 9.39 10^3/uL (3.29-11.43)
[2023-09-27 03:53] LABS: Alanine Aminotransferase 10 U/L (0-41); Albumin Level 4.1 g/dL (3.5-5.2); Alkaline Phosphatase 84 U/L (40-130); Anion Gap 15.6 (5-19); Aspartate Amino Transferase 16 U/L (0-40); Blood Urea Nitrogen 28 mg/dL (8-23); Carbon Dioxide 34 mmol/L (22-29); Chloride 95 mmol/L (98-107); Creatinine Clr Calc Pharmacy 106.9444; Globulin 3.2 g/dL (1.3-4.6); Glomerular Filtration Rate 134.8 mL/min (90-130); Glucose 93 mg/dL (65-115); Magnesium 1.9 mg/dL (1.7-2.3); Osmolality Calculated 297 mOsm/kg (285-295); Potassium 3.6 mmol/L (3.5-5.1); Sodium 141 mmol/L (136-145); Total Bilirubin 1.3 mg/dL (0.15-1.2); Total Protein 7.3 g/dL (6.6-8.7)
[2023-09-27] MEDS: ketorolac 30 mg/mL INJ 15 MG IVP (05:12)
[2023-09-27] MEDS: amlodipine 10 mg Tablet PO (05:13)
[2023-09-27] MEDS: acetaminophen 325 mg Tablet 650 MG PO (05:13)
[2023-09-27] MEDS: budesonide 0.5 mg/2 mL Neb INHALATION (08:13)
[2023-09-27] MEDS: sennosides-docusate Tablet 1 TAB PO (08:51)
[2023-09-27] MEDS: linezolid 600 mg Tablet PO (08:51)
[2023-09-27] MEDS: apixaban 5 mg Tablet PO (08:51)
--- NOTE | 2023-09-27 10:43 | PC.OT ---
per discussion in rounds; doctor states no lymphedema wraps as patient is to d/c today.
[2023-09-27 11:11] LABS: SARS Covid-2 Antigen negative (Negative)
--- NOTE | 2023-09-27 12:47 | PC.NURSE ---
Report called to LEATHA Strong at [facility]. Discharge pending unaboot placement by Dr. Delarosa at this time.
--- NOTE | 2023-09-27 13:49 | P.DS_ITS ---
Discharge Providers Date of Admission: 09/23/23 14:26 Date of Discharge: September 27, 2023 Attending Provider at Admission: Samantha Liu MD Attending Provider at Discharge: Pamela Ray MD Primary Care Provider: Ed Branch Diagnoses at Discharge Discharge Diagnosis (1) Lymphedema: Status: Acute Permanent problem details: -has chronic lymphedema of bilateral LE -LE elevation and lymphedema wraps if appropriate -negative DVT per venous duplex (2) Venous stasis ulcer: Status: Acute Reason for Visit Reason for Visit: Gen weakness Hospital Course Hospital Course Staish Jones is a 68 year old male with recurrent falls, history of alcohol abuse, recurrent admissions for Acute on chronic hypoxic hypercapnic respite failure suspected related to Untreated sleep apnea vs COPD not officially diagnosed due to lack of PFTs, h/o PE in March 2023 , however patient would not take anticoagulation due to history of recurrent falls at home including extensive facial injuries when he fell out of his recliner. He has a history of recurrent hospital admissions for acute on chronic hypercapnic hypoxic respiratory failure. He is currently admitted to the hospital after presenting here with September 21, 2023 with hypercapnic respiratory failure. He also had increased lower extremity swelling. Highly likely that he is noncompliant with his medications. He has been unable to care for himself for the past several months to years, however has been very reluctant to accept any help in this regard. He required transient ICU admission for hypercapnic respiratory failure with pCO2 up to 102. He was placed on BiPAP ventilation with improvement. Hypercapnia is now completely resolved. On his lower extremity lymphedema he has been recommended Unna boots. He was seen by general surgery and recommended to continue the same. His supplies unfortunately did not come in time for discharge. This will be arranged as outpatient for him and general surgery follow-up.He received diuresis with IV Bumex during course of admission. At the time of discharge dose of Bumex has been changed from 1 mg p.o. daily to 1 mg p.o. twice daily. He has chronic lower extremity stasis dermatitis with venous stasis ulcer, there was some concern for possible cellulitis given 1 out of 4 blood cultures positive for coag negative staph. Suspect this to be a contaminant, however due to concern additionally for cellulitis he is being treated with linezolid 600 mg p.o. twice daily for 7 days. He remains at high risk of recurrent admissions given his chronic multiple medical comorbidities and poor compliance. He is being discharged to SNF today. Recommendations to continue BiPAP use at nighttime. Physical Exam Narrative: General: No acute distress, AO x3 HEENT: PERRLA, pupils bilaterally equal and reactive, pallors not present Chest: Normal vesicular breath sounds, no added sounds, equal good air entry bilaterally CVS: S1-S2 regular, no murmurs, no tachycardia, no gallops, no rubs Abdomen: Soft, nontender, no organomegaly, bowel sounds present Neuro: No focal deficits, no facial deformity, AO x3, power 5/5 in all limbs Extremities: Chronic lower extremity lymphedema with stasis dermatitis. Urinary Catheter Management: Jeffery: Cath Placed During This Visit: yes, but has since been removed by the nurse Reason for Continuing Indwelling Catheter: Decision to DC Catheter Urinary Catheter Date of Insertion: 09/22/23 Urinary Catheter Time of Insertion: 02:46 Date Urinary Catheter Removed: 09/26/23 Time Urinary Catheter Discontinued: 17:15 Discharge Data Studies Completed and Pending Completed Studies During Hospitalization Category Date Time Status CT abdomen pelvis w con* [id number] Stat Cat Scan 09/22/23 18:12 Completed XR chest 1V portable [id number] Stat Exams 09/21/23 13:40 Completed Radiology Impressions Abdomen/Pelvis CT 09/22/23 18:12 IMPRESSION: 1. No bowel obstruction or inflammatory process associated with the bowel. 2. No free air or significant free fluid in the abdomen or pelvis. 3. No evidence of appendicitis. 4. There is a hypodense lesion measuring up 5.6 cm in 54 Hounsfield units along the posterior cortex of the right kidney which does not meet imaging criteria for a simple cyst and a three-phase renal CT or renal may be of benefit to more fully characterize this finding. Additional hypodense lesion in the right kidney measuring up to 1.9 cm can be assessed at the same time. 5. Multiple prominent bilateral groin lymph nodes and retroperitoneal lymph nodes which are indeterminate but may be reactive in nature. Laboratory Results WBC 9.39 10^3/uL (3.29-11.43) 09/27/23 02:43 RBC 4.94 10^6/uL (3.85-5.65) 09/27/23 02:43 Hgb 15.30 g/dL (11.27-16.99) 09/27/23 02:43 Hct 46.3 % (37-53) 09/27/23 02:43 MCV 93.7 fl (82-101) 09/27/23 02:43 MCH 31.0 pg (27-33) 09/27/23 02:43 MCHC 33.0 g/dL (30-55) 09/27/23 02:43 RDW 13.2 % (12.1-15.1) 09/27/23 02:43 Plt Count 257 10^3/cmm (157-399) 09/27/23 02:43 MPV 8.8 fL (7.4-10.4) 09/27/23 02:43 Neut % (Auto) 71.3 % 09/27/23 02:43 Lymph % (Auto) 14.0 % 09/27/23 02:43 [place] % (Auto) 10.8 % 09/27/23 02:43 Eos % (Auto) 2.6 % 09/27/23 02:43 Baso % (Auto) 0.9 % 09/27/23 02:43 Neut # (Auto) 6.71 10^3/uL (1.8-7.7) 09/27/23 02:43 Lymph # (Auto) 1.3 10^3/uL (0.8-4.8) 09/27/23 02:43 [place] # (Auto) 1.0 10^3/uL (0.2-0.9) H 09/27/23 02:43 Eos # (Auto) 0.2 10^3/uL (0.0-0.8) 09/27/23 02:43 Baso # (Auto) 0.1 10^3/uL (0.0-0.1) 09/27/23 02:43 Nucleated RBC % (auto) 0 % 09/27/23 02:43 Nucleated RBCs # 0.0 /100WBC 09/27/23 02:43 Specimen Type Arterial 09/23/23 17:56 Sample Site Radial, left 09/23/23 17:56 ABG pH 7.50 (7.35-7.45) H 09/23/23 17:56 ABG pCO2 45.0 mmHg (35-45) 09/23/23 17:56 ABG pO2 86.9 mmHg (80.0-100.0) 09/23/23 17:56 ABG PO2/FiO2 Ratio 0 09/23/23 17:56 ABG HCO3 34.7 mmol/L (22-26) H 09/23/23 17:56 ABG O2 Saturation 98.4 09/23/23 17:56 ABG Base Excess 10.0 mmol/L (-2.0-2.0) H 09/23/23 17:56 Toro Test Pos 09/23/23 17:56 A-a O2 Gradient 9.3 mmHg (5-10) 09/23/23 17:56 Hematocrit 46.1 % (42-52) 09/23/23 17:56 Hgb O2 Saturation 97.1 % (95-100) 09/23/23 17:56 Carboxyhemoglobin 1.3 %THgb (0.4-20.1) 09/23/23 17:56 Methemoglobin 0.1 % (0.4-1.5) L 09/23/23 17:56 Total Hemoglobin 15.0 g/dL (14-18) 09/23/23 17:56 Sodium 141.0 mmol/L (131-143) 09/23/23 17:56 Potassium 3.9 mmol/L (3.5-5.0) 09/23/23 17:56 Glucose 93.0 mg/dL (70-115) 09/23/23 17:56 Ionized Calcium 1.2 mmol/L (1.1-1.4) 09/23/23 17:56 O2 Delivery Device Bipap 09/23/23 17:56 O2 Liters/Min 4.0 % 09/23/23 13:59 FiO2 30.0 % 09/23/23 17:56 PEEP 6.0 cmH20 09/22/23 05:31 [employer] Traffic [employer] Supervisor ID Cak 09/23/23 17:56 Sodium 141 mmol/L (136-145) 09/27/23 02:43 Potassium 3.6 mmol/L (3.5-5.1) 09/27/23 02:43 Chloride 95 mmol/L (98-107) L 09/27/23 02:43 Carbon Dioxide 34 mmol/L (22-29) H 09/27/23 02:43 Anion Gap 15.6 (5-19) 09/27/23 02:43 BUN 28 mg/dL (8-23) H 09/27/23 02:43 Creatinine 0.6 mg/dL (0.7-1.2) L 09/27/23 02:43 GFR Calculation 134.8 mL/min (90-130) H 09/27/23 02:43 Glucose 93 mg/dL (65-115) 09/27/23 02:43 Calculated Osmolality 297 mOsm/kg (285-295) H 09/27/23 02:43 Lactic Acid 1.0 mmol/L (0.5-2.2) 09/21/23 13:54 Lactate 1.0 mmol/L (0.5-2.2) 09/22/23 20:13 Calcium 10.0 mg/dL (8.5-10.5) 09/27/23 02:43 Phosphorus 5.2 mg/dL (2.5-4.5) H 09/24/23 07:21 Magnesium 1.9 mg/dL (1.7-2.3) 09/27/23 02:43 Total Bilirubin 1.3 mg/dL (0.15-1.2) H 09/27/23 02:43 AST 16 U/L (0-40) 09/27/23 02:43 ALT 10 U/L (0-41) 09/27/23 02:43 Alkaline Phosphatase 84 U/L (40-130) 09/27/23 02:43 Creatine Kinase 33 U/L (39-308) L 09/21/23 13:54 Troponin T Baseline 56 ng/L (0-15) H 09/22/23 20:13 Troponin T 120 Minute 54.20 ng/L (0-15) H 09/22/23 22:09 Delta Troponin T -1.80 ABS# (0-10) L 09/22/23 22:09 Troponin T Hi Sens 6Hr 49.97 ng/L (0-15) H 09/23/23 00:52 Troponin T Hi Sens 6Hr Delta -6.03 ng/L (0-12) L 09/23/23 00:52 NT-Pro-B Natriuret Pep 201 pg/mL (0-125) H 09/21/23 13:54 Total Protein 7.3 g/dL (6.6-8.7) 09/27/23 02:43 Albumin 4.1 g/dL (3.5-5.2) 09/27/23 02:43 Globulin 3.2 g/dL (1.3-4.6) 09/27/23 02:43 Procalcitonin 0.08 ng/mL (0-0.5) 09/21/23 13:54 TSH 1.51 uIU/mL (0.27-4.20) 09/21/23 13:54 Urine Color Yellow (Yellow) 09/22/23 02:55 Urine Appearance Sl hazy (CLEAR) A 09/22/23 02:55 Urine pH 6 (5-7) 09/22/23 02:55 Ur Specific [place] 1.025 (1.005-1.030) 09/22/23 02:55 Urine Protein 1+ (Negative) H 09/22/23 02:55 Urine Glucose (UA) Norm (Normal) 09/22/23 02:55 Urine Ketones 1+ (Negative) H 09/22/23 02:55 Urine Blood Neg (Negative) 09/22/23 02:55 Urine Nitrate Negative (Negative) 09/22/23 02:55 Urine Bilirubin Neg (Negative) 09/22/23 02:55 Urine Urobilinogen 4 mg/dL (Negative) H 09/22/23 02:55 Ur Leukocyte Esterase Negative (Negative) 09/22/23 02:55 Urine RBC None /hpf (0-2) 09/22/23 02:55 Urine WBC 0-4 /hpf (0-5) H 09/22/23 02:55 Ur Squamous Epith Cells 0-4 /hpf (0-5) H 09/22/23 02:55 Calcium Oxalate Crystal 15-25 /hpf H 09/22/23 02:55 Amorphous Sediment Not Reportable 09/22/23 02:55 Urine Bacteria None /hpf (NONE) 09/22/23 02:55 Vancomycin Trough 14.9 ug/mL (10-15) 09/24/23 07:21 SARS-CoV-2 Ag (Rapid) negative (Negative) 09/27/23 09:49 Vitals Last Vital Signs Temp 97.6 F 09/27/23 10:24 Pulse 89 09/27/23 10:24 Resp 18 09/27/23 10:24 BP 121/81 09/27/23 10:24 Pulse Ox 95 09/27/23 10:24 O2 Del Method Nasal Cannula 09/27/23 10:24 O2 Flow Rate 2 09/27/23 08:14 FiO2 30 09/25/23 03:44 Discharge Plan Discharge Patient Disposition: Xfer [facility] Condition: Stable Prescriptions: New linezolid 600 mg Tablet 600 mg PO BID@0900,2100 7 Days Qty: 14 0RF Continued fluticasone furoate-vilanterol [Breo Ellipta] 200-25 mcg/dose blister with device 1 inh inhalation Q24H Qty: 60 0RF amlodipine 10 mg tablet 10 mg PO QAM Eliquis 5 mg Tablet 5 mg PO BID@0900,2100 Qty: 60 3RF sennosides-docusate sodium [Stool Softener-Laxative] 8.6-50 mg Tablet 1 tab PO DAILY Qty: 30 0RF calamine-zinc oxide 8-8 % Lotion 1 applic topical BID Qty: 177 0RF albuterol sulfate 90 mcg/actuation HFA aerosol inhaler 2 inh inhalation Q8H PRN (Reason: shortness of breath or wheezing) Qty: 8.5 2RF Spiriva Respimat 1.25 mcg/actuation mist 2 inh inhalation DAILY Qty: 4 3RF potassium chloride 10 mEq tablet extended release 10 meq PO DAILY Qty: 90 0RF Rx Instructions: Only take with Bumex Changed bumetanide 1 mg tablet 1 mg PO BID 30 Days Qty: 60 6RF Discontinued furosemide 80 mg tablet 80 mg PO DAILY Discharge Orders: Discharge Order (Routine); Ordered 09/27/23 Ordered By: Pamela Ray Other Ambulatory Orders: DME: BIPAP (Order) Location: None Selected Ordered By: Pamela Ray Referrals: [facility] [Outside] Ed Branch [Primary Care Provider] - Discharge Diet: Cardiac Discharge Activity: Increase activity as tolerated Patient Instructions: Opioid Safety Discharge Attestations Time Spent in Discharge Care*: greater than 30 min Status at Discharge: Cognitive status at discharge: cognitively intact , Behavioral status at discharge: cooperative , Quality Metrics Clinical Quality Measures [ No reported AMI, CVA or VTE this stay] Coding Level of Care Code Acute Code for Chg Fwd Diagnoses Lymphedema I89.0 Venous stasis ulcer I83.009; L97.909
--- NOTE | 2023-09-27 14:05 | PC.NURSE ---
Pt was to receive [facility] placement by Dr. Delarosa prior to discharge. Dr. Delarosa notified Shellie enrollment management manager to schedule him outpatient for unab[facility] placement. Shellie RN to notify [facility] of order change and set up transportation. This RN spoke with Shellie multiple times about [facility] placement and transportation on the phone, with this being the ultimate decision.
== END 2023-09-27 14:08 | disposition skilled nursing facility (03) | DRG 190 ==
LOC: ER 16:17 → MEDSURG 18:54 → ICU 09-23 14:26 → MEDSURG 09-24 19:35
PROVIDERS: Internal Medicine; Admitting Provider Internal Medicine; Emergency Provider Family Medicine; PCP Family Medicine; Visit Provider Student in an Organized Health Care Education/Training Program
DX: J44.1 Chronic obstructive pulmonary disease with (acute) exacerbation (principal); J96.21 Acute and chronic respiratory failure with hypoxia; J96.22 Acute and chronic respiratory failure with hypercapnia; N39.0 Urinary tract infection, site not specified; G47.33 Obstructive sleep apnea (adult) (pediatric); I50.9 Heart failure, unspecified; I11.0 Hypertensive heart disease with heart failure; E66.01 Morbid (severe) obesity due to excess calories; F10.11 Alcohol abuse, in remission; F17.210 Nicotine dependence, cigarettes, uncomplicated; I87.2 Venous insufficiency (chronic) (peripheral); R31.9 Hematuria, unspecified; K59.00 Constipation, unspecified; I89.0 Lymphedema, not elsewhere classified; Z99.81 Dependence on supplemental oxygen; Z68.32 Body mass index [BMI] 32.0-32.9, adult; Z11.52 Encounter for screening for COVID-19; Z79.01 Long term (current) use of anticoagulants; Z87.440 Personal history of urinary (tract) infections; Z85.46 Personal history of malignant neoplasm of prostate; Z86.711 Personal history of pulmonary embolism; Z90.79 Acquired absence of other genital organ(s)
CPT/HCPCS: 36415; 36600; 51702; 71045; 74177; 80048; 80051; 80053; 80202; 81001; 82330; 82550; 82803; 82805; 83605; 83735; 83880; 84100; 84145; 84443; 84484; 85025; 87040; 87077; 87150; 87186; 87205; 87426; 93005; 94640; 94660; 94762; 96374; 96376; 97110; 97116; 97161; 97167; 97530; G0378; J0696; J1885; J2270; J2405; J2543; J2765; J3372; J3490; J7626; Q9967

== ENCOUNTER → 2023-10-04 15:25 | Outpatient (BNVA) | payer MEDICARE, SELFPAY | PROVIDERS: PCP Family Medicine; Referring Provider Family Medicine; Visit Provider Surgery | DX: I89.0 Lymphedema, not elsewhere classified (principal) | CPT/HCPCS: 29580; 99214 ==

== ENCOUNTER → 2023-10-11 09:11 | Outpatient (BNVA) | payer MEDICARE, SELFPAY | PROVIDERS: PCP Family Medicine; Visit Provider Surgery | DX: I89.0 Lymphedema, not elsewhere classified (principal); R53.1 Weakness | CPT/HCPCS: 29580 ==

== ENCOUNTER 2023-10-17 14:51 | Emergency (ER) | payer MEDICARE, SELFPAY ==
[2023-10-17] VITALS (10 sets, daily range): BP systolic 121–145; BP diastolic 64–89; PULSE 67–97; RESP 16–18; TEMP 36.5; O2SAT 91–98; BMI 34.0
--- NOTE | 2023-10-17 14:56 | ECG_ITS ---
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 Measurements Intervals [place] Rate: 80 P: 45 [place]: 193 QRS: -86 QRSD: 147 T: 61 QT: 442 QTc: 511 Interpretive Statements SINUS RHYTHM RIGHT BUNDLE BRANCH BLOCK [120+ ms QRS DURATION, UPRIGHT V1, 40+ ms S IN I/aVL/V4/V5/V6] LEFT ANTERIOR FASCICULAR BLOCK [QRS AXIS <= -45, QR IN I, RS IN II] POSSIBLE ANTERIOR MYOCARDIAL INFARCTION , OF INDETERMINATE AGE [30 ms Q WAVE IN V3/V4, OR R < 0.2 mV IN V4] Compared to ECG 09/22/2023 18:28:22 Right bundle-branch block now present Left anterior fascicular block now present Myocardial infarct finding now present Sinus tachycardia no longer present Electronically Signed On 10-18-2023 15:00:30 CDT by Simone Black M.D. [email or web address] aleida
--- NOTE | 2023-10-17 14:56 | XRR_ITS ---
PROCEDURE INFORMATION: Exam: XR Chest Exam date and time: 10/17/2023 3:27 PM Age: 68 years old Clinical indication: Cough and dyspnea; Patient HX: SOB; Dyspnea; Cough TECHNIQUE: Imaging protocol: Radiologic exam of the chest. Views: 1 view. COMPARISON: CR XR chest 1V portable [id number] 09/21/2023 1:45 PM FINDINGS: Lungs: Dependent atelectasis. Pleural spaces: Unremarkable. No pleural effusion. No pneumothorax. Heart/Mediastinum: Borderline cardiomegaly. Bones/joints: Unremarkable. XR/XR chest 1V portable [id number] IMPRESSION: No acute findings.
[2023-10-17 15:35] LABS: Basophils # 0.1 10^3/uL (0.0-0.1); Basophils % 0.8 %; Eosinophils # 0.1 10^3/uL (0.0-0.8); Eosinophils % 1.4 %; Hematocrit 45.4 % (37-53); Lymphocytes # 0.9 10^3/uL (0.8-4.8); Lymphocytes % 11.9 %; Mean Corpuscular HGB Conc 31.9 g/dL (30-55); Mean Corpuscular Hemoglobin 31.5 pg (27-33); Mean Corpuscular Volume 98.7 fl (82-101); Mean Platelet Volume 8.6 fL (7.4-10.4); Monocytes # 0.7 10^3/uL (0.2-0.9); Monocytes % 9.1 %; Neutrophils # 6.07 10^3/uL (1.8-7.7); Neutrophils % 76.4 %; Nucleated Red Blood Cells % 0 %; Platelet Count 226 10^3/cmm (157-399); Red Cell Distribution Width 13.2 % (12.1-15.1); White Blood Count 7.93 10^3/uL (3.29-11.43)
--- NOTE | 2023-10-17 15:45 | PC.PHAR ---
PT IS FROM [facility] 10/17/23
--- NOTE | 2023-10-17 15:56 | CTR_ITS ---
PROCEDURE INFORMATION: Exam: CT Abdomen And Pelvis Without Contrast Exam date and time: 10/17/2023 4:27 PM Age: 68 years old Clinical indication: Abdominal pain TECHNIQUE: Imaging protocol: Computed tomography of the abdomen and pelvis without contrast. Radiation optimization: All CT scans at this facility use at least one of these dose optimization techniques: automated exposure control; mA and/or kV adjustment per patient size (includes targeted exams where dose is matched to clinical indication); or iterative reconstruction. COMPARISON: CT abdomen pelvis w con* [id number] 09/22/2023 9:31 PM RADIATION DOSE METRICS: Total DLP (mGy-cm): 998.87 FINDINGS: Lungs: Incompletely imaged rounded infiltrate in the left lower lobe. Liver: Normal. No mass. Gallbladder and bile ducts: Normal. No calcified stones. No ductal dilation. Pancreas: Normal. No ductal dilation. Spleen: Normal. No splenomegaly. Adrenal glands: Normal. No mass. Kidneys and ureters: Right renal cyst. Stomach and bowel: Unremarkable. No obstruction. No mucosal thickening. Appendix: No evidence of appendicitis. Intraperitoneal space: Unremarkable. No free air. No significant fluid collection. Vasculature: Unremarkable. No abdominal aortic aneurysm. Lymph nodes: Unremarkable. No enlarged lymph nodes. Urinary bladder: Unremarkable as visualized. Reproductive: Unremarkable as visualized. Bones/joints: Unremarkable. No acute fracture. Soft tissues: Unremarkable. CT/CT abdomen pelvis wo con [id number] IMPRESSION: No acute subdiaphragmatic pathology. COMMENTS: Consistent with the [employer]'s Incidental Findings Committee white paper (J Am Clari Radiol 2018): Any incidental renal lesion less than 1 cm or classified as too small to characterize, or any incidental cystic renal lesion characterized as simple-appearing, is likely benign. No follow-up imaging is recommended for these lesions per consensus recommendations based on imaging criteria.
--- NOTE | 2023-10-17 15:57 | W.ED.SOB ---
HPI - SOB/Dyspnea General: Chief Complaint: Shortness of Breath/Dyspnea Stated Complaint: SOB Time Seen by Provider: 10/17/23 14:55 Source: patient Mode of arrival: EMS History of Present Illness: HPI Narrative: 68-year-old male presents emergency room from formerly [facility] intermediate with complaint of shortness of breath with significant orthopnea. He has a history of sleep apnea he is supposed to be on BiPAP he was a little hypoxic last night according to the intermediate but today on his usual 2 L he is maintaining a normal sat. Currently in the room he is on 4 L we decreased him to 2 and he has been maintaining his sats good. He is also complaining significant swelling is in his extremities. MD elicited complaint: shortness of breath Pertinent past history: congestive heart failure Onset (ago): day(s) Exacerbating factors: lying flat and movement Relieving factors: oxygen and upright position Known history of: congestive heart failure Associated symptoms: Reports abdominal pain, chest pain, cough and orthopnea; Deny chest congestion, diaphoresis, dizziness, extremity pain, fever(s), hemoptysis, lightheadedness, myalgias, nausea, palpitations, paresthesias, polydipsia, polyuria, rash, sense of impending doom, syncope, vomiting or other Treatment prior to arrival: oxygen Review of Systems Const: Denies: fever(s), chills or diaphoresis Card: Reports: chest pain, edema, swelling of feet/ankles and orthopnea; Denies: palpitations, lightheadedness or syncope Resp: Reports: dyspnea; Denies: productive cough, non-productive cough, hemoptysis or chest congestion GI: Reports: abdominal pain; Denies: nausea or vomiting : Denies: dysuria, urinary frequency or urinary urgency Musc: Denies: extremity pain Skin/Breast: Denies: rash Neuro: Denies: dizziness Endo: Denies: polyuria or polydipsia PFSH ED PFSH: Medical History Lymphedema -has chronic lymphedema of bilateral LE -LE elevation and lymphedema wraps if appropriate -negative DVT per venous duplex Venous stasis ulcer COPD exacerbation Acute on chronic respiratory failure with hypoxia and hypercapnia Obstructive sleep apnea Ileus Bilateral leg weakness Altered mental status CHF exacerbation Constipation Obesity, morbid Hypertension Respiratory failure Bladder mass Hyperkalemia Hypokalemia Hematoma of frontal scalp Contusion of face UTI (urinary tract infection) Sacral pressure ulcer Thrombocytopenia Alcohol abuse Prostate cancer Pulmonary embolism Surgical History Hx of colonoscopy May 2022, polyps found Status post colonoscopy H/O prostatectomy History of umbilical hernia repair Social History Smoking and tobacco/nicotine status: current some day tobacco/nicotine user Alcohol intake: former Marital status: Single Current occupational status: retired Physical Exam Const: GENERAL APPEARANCE: cooperative and comfortable ORIENTATION/CONSCIOUSNESS: Yes awake, Yes oriented to person, Yes oriented to place and Yes oriented to time HENMT: COMMON NORMALS: normocephalic, atraumatic and hearing grossly normal bilaterally HEAD & SCALP: normocephalic and atraumatic Resp: AUSCULTATION: rhonchi, wheezes and diminished lung sounds Cardio: COMMON NORMALS: regular rate, regular rhythm and No murmurs present (Cardio) RATE: regular rate RHYTHM: regular rhythm GI: COMMON NORMALS: Soft to palpation and No hepatosplenomegaly present AUSCULTATION: Yes normoactive bowel sounds PALPATION: Yes Soft to palpation, No Tenderness to palpation present (GI), No Guarding due to palpation present (GI) and Yes No hepatosplenomegaly present Extremity: OTHER: Venous stasis edema with venous ulcers chronic Neuro: SENSORIUM/ORIENTATION: Yes oriented to person, Yes oriented to place and Yes oriented to time Skin: COMMON NORMALS: no rashes or lesions noted GENERAL SKIN EXAM: no rashes or lesions noted Course Vital Signs: Vital signs: Vital Signs Temperature 97.7 F 10/17/23 14:52 Pulse Rate 88 10/17/23 20:48 Respiratory Rate 18 10/17/23 20:48 Blood Pressure 145/89 10/17/23 20:48 Pulse Oximetry 95 10/17/23 20:48 Oxygen Delivery Me thod Nasal Cannula 10/17/23 20:00 Oxygen Flow Rate 2 10/17/23 20:00 MDM - SOB/Dyspnea Medical Decision Making Labs and imaging reviewed. Generally patient's chronic conditions are well-managed. His laboratory studies are reflecting good control. He does have chronic hypercapnia but he is well-adjusted at this time he is not in hypercapnic respiratory failure he is managing well in his usual 2 L by nasal cannula at rest he was turned up for time his first blood gas shows slightly elevated CO2 but he has no respiratory depression and has no altered mental status. He does have a fair amount of swelling which has been a chronic problem for him. We removed to the Unna boots. He has chronic changes of venous stasis edema but no active ulcers or signs of cellulitis at this time. He is not in decompensated congestive heart failure. He was given a dose of Lasix here. His chest x-ray did not show any increased pulmonary vascular markings. Will discharge the patient back to the intermediate I had metolazone 2.5 mg 1/2-hour before his usual Lasix dose. He should have repeat BMP in a few days. Can return to the wound care clinic to have the Unna boots reapplied. Patient was requesting to be hospitalized however I do not have a qualifying diagnosis at this time reviewed the chart with one of the on-call hospitalist they concur with outpatient treatment at this time. His troponin is at his baseline his BNP is actually at the lower end of normal his EKG does not show any acute changes. Medical Records I reviewed the patient's medical records. Lab Data I reviewed the patient's lab results. 10/17/23 15:28 10/17/23 15:50 Labs/Radiology: Radiology Impressions Chest X-Ray 10/17/23 14:56 IMPRESSION: No acute findings. Abdomen/Pelvis CT 10/17/23 15:56 IMPRESSION: No acute subdiaphragmatic pathology. COMMENTS: Consistent with the [employer]'s Incidental Findings Committee white paper (J Am Clari Radiol 2018): Any incidental renal lesion less than 1 cm or classified as too small to characterize, or any incidental cystic renal lesion characterized as simple-appearing, is likely benign. No follow-up imaging is recommended for these lesions per consensus recommendations based on imaging criteria. Laboratory Results WBC 7.93 10^3/uL (3.29-11.43) 10/17/23 15:28 RBC 4.60 10^6/uL (3.85-5.65) 10/17/23 15:28 Hgb 14.50 g/dL (11.27-16.99) 10/17/23 15:28 Hct 45.4 % (37-53) 10/17/23 15: MCV 98.7 fl (82-101) 10/17/23 15: MCH 31.5 pg (27-33) 10/17/23: MCHC 31.9 g/dL (30-55) 10/17/23 15: RDW 13.2 % (12.1-15.1) 10/17/23: Plt Count 226 10^3/cmm (157-399) 10/17/23: MPV 8.6 fL (7.4-10.4) 10/17/23 15: Neut % (Auto) 76.4 % 10/17/23: Lymph % (Auto) 11.9 % 10/17/23: [place] % (Auto) 9.1 % 10/17/23: Eos % (Auto) 1.4 % 10/17/23: Baso % (Auto) 0.8 % 10/17/23: Neut # (Auto) 6.07 10^3/uL (1.8-7.7) 10/17/23 15: Lymph # (Auto) 0.9 10^3/uL (0.8-4.8) 10/17/23: [place] # (Auto) 0.7 10^3/uL (0.2-0.9) 10/17/23: Eos # (Auto) 0.1 10^3/uL (0.0-0.8) 10/17/23: Baso # (Auto) 0.1 10^3/uL (0.0-0.1) 10/17/23: Nucleated RBC % (auto) 0 % 10/17/23: Nucleated RBCs # 0.0 /100WBC 10/17/23 15: Specimen Type Arterial 10/17/23 16:41 Sample Site Radial, left 10/17/23 16:41 ABG pH 7.39 (7.35-7.45) 10/17/23 16:41 ABG pCO2 74.4 mmHg (35-45) H* 10/17/23 16:41 ABG pO2 85.7 mmHg (80.0-100.0) 10/17/23 16:41 ABG PO2/FiO2 Ratio 0 10/17/23 16:41 ABG HCO3 44.5 mmol/L (22-26) H 10/17/23 16:41 ABG O2 Saturation 96.9 10/17/23 16:41 ABG Base Excess 15.3 mmol/L (-2.0-2.0) H 10/17/23 16:41 Toro Test Pos 10/17/23 16:41 A-a O2 Gradient 5.2 mmHg (5-10) 10/17/23 16:41 Hematocrit 45.5 % (42-52) 10/17/23 16:41 Hgb O2 Saturation 95.5 % (95-100) 10/17/23 16:41 Carboxyhemoglobin 1.2 %THgb (0.4-20.1) 10/17/23 16:41 Methemoglobin 0.3 % (0.4-1.5) L 10/17/23 16:41 Total Hemoglobin 14.8 g/dL (14-18) 10/17/23 16:41 Sodium 141.0 mmol/L (131-143) 10/17/23 16:41 Potassium 3.4 mmol/L (3.5-5.0) L 10/17/23 16:41 Glucose 96.0 mg/dL (70-115) 10/17/23 16:41 Ionized Calcium 1.2 mmol/L (1.1-1.4) 10/17/23 16:41 O2 Delivery Device Nc 10/17/23 16:41 O2 Liters/Min 2.5 % 10/17/23 16:41 FiO2 30.0 % 10/17/23 16:41 Senior Case Manager ID Cak 10/17/23 16:41 Sodium 136 mmol/L (136-145) 10/17/23 15:50 Potassium 3.6 mmol/L (3.5-5.1) 10/17/23 15:50 Chloride 88 mmol/L (98-107) L 10/17/23 15:50 Carbon Dioxide 41 mmol/L (22-29) H 10/17/23 15:50 Anion Gap 10.6 (5-19) 10/17/23 15:50 BUN 16 mg/dL (8-23) 10/17/23 15:50 Creatinine 0.4 mg/dL (0.7-1.2) L 10/17/23 15:50 GFR Calculation 215.2 mL/min (90-130) H 10/17/23 15:50 Glucose 97 mg/dL (65-115) 10/17/23 15:50 Calculated Osmolality 283 mOsm/kg (285-295) L 10/17/23 15:50 Calcium 9.3 mg/dL (8.5-10.5) 10/17/23 15:50 Total Bilirubin 1.1 mg/dL (0.15-1.2) 10/17/23 15:50 AST 12 U/L (0-40) 10/17/23 15:50 ALT 10 U/L (0-41) 10/17/23 15:50 Alkaline Phosphatase 108 U/L (40-130) 10/17/23 15:50 Troponin T Baseline 63 ng/L (0-15) H 10/17/23 15:50 NT-Pro-B Natriuret Pep 140 pg/mL (0-125) H 10/17/23 15:50 Total Protein 7.0 g/dL (6.6-8.7) 10/17/23 15:50 Albumin 3.8 g/dL (3.5-5.2) 10/17/23 15:50 Globulin 3.2 g/dL (1.3-4.6) 10/17/23 15:50 Urine Color Yellow (Yellow) 10/17/23 16:19 Urine Appearance Clear (CLEAR) 10/17/23 16:19 Urine pH 5 (5-7) 10/17/23 16:19 Ur Specific [place] 1.030 (1.005-1.030) 10/17/23 16:19 Urine Protein Neg (Negative) 10/17/23 16:19 Urine Glucose (UA) Norm (Normal) 10/17/23 16:19 Urine Ketones 1+ (Negative) H 10/17/23 16:19 Urine Blood 2+ (Negative) H 10/17/23 16:19 Urine Nitrate Positive (Negative) H 10/17/23 16:19 Urine Bilirubin Neg (Negative) 10/17/23 16:19 Urine Urobilinogen 1 mg/dL (Negative) H 10/17/23 16:19 Ur Leukocyte Esterase Negative (Negative) 10/17/23 16:19 Urine RBC 5-10 /hpf (0-2) H 10/17/23 16:19 Urine WBC 15-25 /hpf (0-5) H 10/17/23 16:19 Ur Squamous Epith Cells 0-4 /hpf (0-5) H 10/17/23 16:19 Amorphous Sediment Not Reportable 10/17/23 16:19 Urine Bacteria 3+ /hpf (NONE) H 10/17/23 16:19 Urine Mucus 1+ /hpf 10/17/23 16:19 All radiology interpretation(s) finalized by discharge Discharge Plan Discharge Patient Disposition: Home Clinical Impression: Lymphedema, Obstructive sleep apnea, Venous stasis ulcer, Cystitis Condition: Stable Prescriptions: New metolazone 2.5 mg tablet 2.5 mg PO DAILY Qty: 7 0RF Rx Instructions: Give 30 minutes prior to Lasix Cipro 250 mg tablet 250 mg PO BID Qty: 14 0RF No Action furosemide 80 mg tablet 80 mg PO DAILY fluticasone furoate-vilanterol [Breo Ellipta] 200-25 mcg/dose blister with device 1 inh inhalation Q24H Qty: 60 0RF acetaminophen 325 mg Tablet 650 mg PO Q6H PRN (Reason: Pain) [place] 5-325 mg Tablet 1 tab PO Q4H PRN (Reason: Pain) Milk of Magnesia 400 mg/5 mL Suspension 30 ml PO DAILY PRN (Reason: Constipation) bisacodyl 10 mg Suppository 10 mg SD DAILY PRN (Reason: Constipation) Fleet Enema 19-7 gram/118 mL Enema 118 ml SD DAILY PRN (Reason: Constipation) Miralax 17 gram/dose Powder 17 g PO QAM potassium chloride 10 mEq tablet extended release 10 meq PO DAILY Eliquis 5 mg Tablet 5 mg PO BID@0900,2100 Qty: 60 3RF sennosides-docusate sodium [Stool Softener-Laxative] 8.6-50 mg Tablet 1 tab PO DAILY Qty: 30 0RF albuterol sulfate 90 mcg/actuation HFA aerosol inhaler 2 inh inhalation Q8H PRN (Reason: shortness of breath or wheezing) Qty: 8.5 2RF Spiriva Respimat 1.25 mcg/actuation mist 2 inh inhalation DAILY Qty: 4 3RF Discharge Orders: Discharge ED (Routine); Ordered 10/17/23 Ordered By: Juancarlos Navarro Referrals: Ed Branch [Primary Care Provider] - Discharge Diet: Usual diet Discharge Activity: Resume usual activity Patient Instructions: Opioid Safety, Pain Management Activity Restrictions/Additional Instructions: Thank you for choosing [facility] for your healthcare needs today. Please realize this is an emergency room and that we are providing you with a medical screening exam and this may not be complete and all inclusive of all the testing and or work up that you may need to determine your ailment or severity of your illness. It is very important that you follow up as instructed or that you return to the Emergency Department should you have concerns or if your condition changes or worsens in any way. You were seen today for increased swelling. Your laboratory test show that your condition chronic conditions are generally stable. Recommend that you add metolazone 2.5 mg 1/2-hour prior to your Lasix every day for the next 5 days further adjustments per your attending physician at the intermediate. Continue to follow along with wound care. You were found to have an incidental bladder infection which can be treated as an outpatient you are given a prescription for ciprofloxacin Coding Level of Care Code ED Drop Count Associate for Sharmin Stewart
[2023-10-17] MEDS: FUROsemide 10 mg/mL SDV 10mL 80 MG IVP (16:15)
[2023-10-17 16:20] LABS: Troponin(5th) Baseline 63 ng/L (0-15)
[2023-10-17 16:25] LABS: Alanine Aminotransferase 10 U/L (0-41); Albumin Level 3.8 g/dL (3.5-5.2); Alkaline Phosphatase 108 U/L (40-130); Anion Gap 10.6 (5-19); Aspartate Amino Transferase 12 U/L (0-40); Blood Urea Nitrogen 16 mg/dL (8-23); Calcium 9.3 mg/dL (8.5-10.5); Chloride 88 mmol/L (98-107); Globulin 3.2 g/dL (1.3-4.6); Glomerular Filtration Rate 215.2 mL/min (90-130); Glucose 97 mg/dL (65-115); NT Pro B Type Natriuretic Pept 140 pg/mL (0-125); Osmolality Calculated 283 mOsm/kg (285-295); Potassium 3.6 mmol/L (3.5-5.1); Sodium 136 mmol/L (136-145); Total Bilirubin 1.1 mg/dL (0.15-1.2)
[2023-10-17 16:26] LABS: Creatinine Clr Calc Pharmacy 108.1099
[2023-10-17 16:27] LABS: Carbon Dioxide 41 mmol/L (22-29)
[2023-10-17 16:36] LABS: Bilirubin Urine Neg (Negative); Blood Urine 2+ (Negative); Glucose Urine UA Norm (Normal); Ketones Urine 1+ (Negative); Nitrate Urine Positive (Negative); Protein Urine Neg (Negative); Urine Appearance Clear (CLEAR); Urine Color Yellow (Yellow); Urobilinogen Urine 1 mg/dL (Negative); pH Urine 5 (5-7)
[2023-10-17 16:37] LABS: Add Urine Culture? Yes; Add Urine Microscopic? YES; Bacteria Urine 3+ /hpf; Leukocyte Esterase Urine Negative (Negative); Mucus Urine 1+ /hpf; Squamous Epithelial Cell Urine 0-4 /hpf (0-5); WBC Urine 15-25 /hpf (0-5)
[2023-10-17 16:52] LABS: Blood Gas Allen Test Pos; Blood Gas LPM 2.5 %; Blood Gas Operator Identificat CAK; Blood Gas Sample Type Arterial; Oxygen Device NC; PO2 FiO2 Ratio Arterial Blood 0
--- NOTE | 2023-10-17 16:56 | ECG_ITS ---
[facility] Test Date: 2023-10-17 Pat Name: Satish Jones Department: Room: Gender: Male Neonatal Specialist: : [id number] Requested By: Juancarlos Giles Order Number: [id number] Reading MD: Simone Black M.D. Measurements Intervals [place] Rate: 90 P: 64 OK: 157 QRS: 224 QRSD: 150 T: 111 QT: 410 QTc: 503 Interpretive Statements SINUS RHYTHM INDETERMINATE AXIS RIGHT BUNDLE BRANCH BLOCK [120+ ms QRS DURATION, UPRIGHT V1, 40+ ms S IN I/aVL/V4/V5/V6] POSSIBLE ANTERIOR MYOCARDIAL INFARCTION , OF INDETERMINATE AGE [30 ms Q WAVE IN V3/V4, OR R < 0.2 mV IN V4] Compared to ECG 10/17/2023 14:57:37 Indeterminate axis now present Left anterior fascicular block no longer present Myocardial infarct finding still present Electronically Signed On 10-18-2023 15:06:21 CDT by Simone Black M.D. [email or web address]
[2023-10-17 16:58] LABS: ABG PH Result 7.39 (7.35-7.45); Alveolar-Arterial Oxygen Gradi 5.2 mmHg (5-10); Arterial Blood Gas Hematocrit 45.5 % (42-52); Base Excess ABG 15.3 mmol/L (-2.0-2.0); Blood Gas Sample Site Radial, left; Carboxyhemoglobin 1.2 %THgb (0.4-20.1); HCO3 ABG 44.5 mmol/L (22-26); HGB O2 Sat 95.5 % (95-100); Ionized Calcium Level - ABG 1.2 mmol/L (1.1-1.4); Methemoglobin 0.3 % (0.4-1.5); Oxygen Saturation ABG 96.9; PO2 ABG 85.7 mmHg (80.0-100.0); Potassium Level - ABG 3.4 mmol/L (3.5-5.0); Total Hemoglobin 14.8 g/dL (14-18)
[2023-10-17 16:59] LABS: ABG PCO2 74.4 mmHg (35-45)
== END 2023-10-17 20:50 | disposition home or self-care (01) ==
PROVIDERS: Emergency Provider Family Medicine; PCP Family Medicine
DX: I89.0 Lymphedema, not elsewhere classified (principal); G47.33 Obstructive sleep apnea (adult) (pediatric); I83.009 Varicose veins of unspecified lower extremity with ulcer of unspecified site; N30.90 Cystitis, unspecified without hematuria; Z79.01 Long term (current) use of anticoagulants; R06.89 Other abnormalities of breathing; J44.9 Chronic obstructive pulmonary disease, unspecified; I10 Essential (primary) hypertension; Z85.46 Personal history of malignant neoplasm of prostate; Z72.0 Tobacco use; Z99.81 Dependence on supplemental oxygen
CPT/HCPCS: 36415; 36600; 71045; 74176; 80051; 80053; 81001; 82330; 82805; 83880; 84484; 85025; 87077; 87086; 87186; 93005; 96374; 99285; J1940

== ENCOUNTER → 2023-10-18 11:07 | Outpatient (BNVA) | payer MEDICARE, SELFPAY | PROVIDERS: PCP Family Medicine; Visit Provider Surgery | DX: I89.0 Lymphedema, not elsewhere classified (principal); T14.8XXA Other injury of unspecified body region, initial encounter | CPT/HCPCS: 29580; 99214 ==

== ENCOUNTER → 2023-10-25 11:18 | Outpatient (BNVA) | payer MEDICARE, SELFPAY | PROVIDERS: PCP Family Medicine; Visit Provider Surgery | DX: I73.9 Peripheral vascular disease, unspecified (principal); L60.3 Nail dystrophy; I87.2 Venous insufficiency (chronic) (peripheral); I89.0 Lymphedema, not elsewhere classified | CPT/HCPCS: 11721; 29580; 99203; 99214 ==